=== PATIENT | female | born 1940 | race Caucasian/White ===

== ENCOUNTER → 2016-09-30 | Outpatient (CLI) | payer MEDICARE ==
--- NOTE | 2016-09-30 14:02 | BD ---
EXAMINATION TYPE: MG DEXA axial skeleton. DATE OF EXAM: 09/30/2016 12:57 PM COMPARISON: Prior DEXA bone scan May 24, 2014 CLINICAL HISTORY: Hyperparathyroidism. Height: 62 Weight: 130.7 FRAX RISK QUESTIONS: Alcohol (3 or more units per day): NO Family History (Parent hip fracture): NO Glucocorticoids (More than 3mos): YES prednisone, TAKING FOR 10 YEARS History of Fracture in Adulthood: NO Secondary Osteoporosis: 1. Type 1 Diabetes: NO 2. Hyperthyroidism: NO 3. Menopause before 45: NO 4. Malnutrition: NO 5. Chronic liver disease: NO Rheumatoid Arthritis: NO Current Tobacco Use: NO RISK FACTORS HISTORY OF: Hip Fracture (Right/Left): NO Spine Fracture: NO History of Wrist Fracture: NO Surgery to Spine/Hip(right/left)/Wrist (right/left): NO Family History of Osteoporosis: NO Active: YES Diet low in dairy products/other sources of calcium: NO Postmenopausal woman: AGE 52 Lost more than 2 inches in height since high school: NO Frequent falls: NO Hyperparathyroidism: YES Adrenal Insufficiency: NO MEDICATIONS: Prednisone or other steroids: YES FOR TEN YEARS How Long: PT HAD KIDNEY TRANSPLANT Additional Medications: CALCEDRILL, BLOOD PRESSURE MED Additional History: EXAM MEASUREMENTS: Bone mineral densitometry was performed using the [employer] System. Bone mineral density as measured about the Lumbar spine is: ----- L1-L4(G/cm2): 1.042 T Score Values are as follows: ----- L2: -2.4 ----- L3: -1.0 ----- L4: 1.4 ----- L1-L4: -1.2 Bone mineral density has: INCREASED 7.2 % since study of: 05.24.2014 Bone mineral density about the R hip (g/cm2): 0.700 Bone mineral density about the L hip (g/cm2): 0.767 T Score values are as follows: -----R Neck: -2.4 -----L Neck: -2.0 -----R Intertrochanter: -3.0 -----L Intertrochanter: -2.5 Bone mineral density has: INCREASED 1.4 % since study of: 05.24.2014 IMPRESSION: Osteoporosis (T Score less than -2.5) as noted by T Score values at the right hip remains present o [facility] bone density is improved from prior. There remains increased fracture risk and therapy is usually indicated based on age if it has not been started. Re-Screen 1-2 years. NOTE: T-SCORE=SD OF THE YOUNG ADULT MEAN.
--- NOTE | 2016-10-02 10:14 | MM ---
Reason for exam: screening (asymptomatic). Last mammogram was performed 1 year and 10 months ago. History: Patient is postmenopausal and has history of breast cancer at age 53. Family history of premenopausal breast cancer in aunt at age 40. Lumpectomy of the left breast, 1993. Excisional biopsy of the left breast. Physical Findings: A clinical breast exam by your physician is recommended on an annual basis and results should be correlated with mammographic findings. MG 3D Screening Mammo W/Cad Bilateral CC and MLO view(s) were taken. Prior study comparison: December 11, 2014, bilateral MG diagnostic mammo w CAD CRISTY. May 24, 2014, bilateral MG work up mamm w CAD BILAT. The breast tissue is heterogeneously dense. This may lower the sensitivity of mammography. No significant changes when compared with prior studies. ASSESSMENT: Benign, BI-RAD 2 RECOMMENDATION: Routine screening mammogram of both breasts.
== END | disposition home or self-care (01) ==
LOC: RADBDWWP 12:20
PROVIDERS: ATTEND Internal Medicine Geriatric Medicine
DX: Z12.31 Encounter for screening mammogram for malignant neoplasm of breast (principal); E21.3 Hyperparathyroidism, unspecified; M81.0 Age-related osteoporosis without current pathological fracture
CPT/HCPCS: 77080; 77063; G0202

== ENCOUNTER → 2016-12-02 | Outpatient (CLI) | payer MEDICARE ==
[2016-12-02 09:02] LABS: Basophils # (A) 0.1 k/uL (0-0.2); Basophils % (A) 1 %; CH 29.5; CHCM 31.6; Eosinophils # (A) 0.2 k/uL (0-0.7); Eosinophils % (A) 2 %; HCT 37.2 % (34.0-46.0); HDW 2.36; HGB 11.6 gm/dL (11.4-16.0); Luc # (Auto) 0.27; Luc % (Auto) 3; Lymphocytes # (A) 0.5 k/uL (1.0-4.8); Lymphocytes % (A) 5 %; MCH 29.3 pg (25.0-35.0); MCHC 31.2 g/dL (31.0-37.0); MCV 93.7 fL (80.0-100.0); Mean Platelet Volume 9.4; Monocytes # (A) 1.1 k/uL (0-1.0); Monocytes % (A) 12 %; Neutrophils # (A) 6.9 k/uL (1.3-7.7); Neutrophils % (A) 77 %; RBC 3.96 m/uL (3.80-5.40); RDW 14.6 % (11.5-15.5); WBC (Perox) 9.95
[2016-12-02 09:24] LABS: Calcium 10.4 mg/dL (8.4-10.2); Potassium 4.1 mmol/L (3.5-5.1); Total Bilirubin 1.5 mg/dL (0.2-1.3); Total Protein 7.1 g/dL (6.3-8.2)
[2016-12-02 12:06] LABS: Hemoglobin A1C 5.6 % (4.2-6.1)
== END | disposition home or self-care (01) ==
LOC: LABWHC1 08:11
PROVIDERS: ATTEND Internal Medicine Geriatric Medicine
DX: N19 Unspecified kidney failure (principal); J34.9 Unspecified disorder of nose and nasal sinuses; E78.00 Pure hypercholesterolemia, unspecified; R73.9 Hyperglycemia, unspecified; E21.3 Hyperparathyroidism, unspecified; E55.9 Vitamin D deficiency, unspecified
CPT/HCPCS: 36415; 80053; 80061; 82306; 83036; 84439; 84443; 85025

== ENCOUNTER → 2017-02-03 | Outpatient (CLI) | payer MEDICARE | END | disposition home or self-care (01) | LOC: LABWHC1 07:40 | PROVIDERS: ATTEND Internal Medicine Nephrology | DX: Z51.81 Encounter for therapeutic drug level monitoring (principal); Z79.899 Other long term (current) drug therapy | CPT/HCPCS: 36415; 82247 ==

== ENCOUNTER → 2017-06-24 | Outpatient (CLI) | payer MEDICARE ==
--- NOTE | 2017-06-24 16:05 | MR ---
EXAMINATION TYPE: MR MRCP DATE OF EXAM: 06/24/2017 COMPARISON: MRI abdomen dated 04/15/2016 HISTORY: cyst on pancreas TECHNIQUE: Multiplanar, multisequence images of the abdomen were acquired per MRCP protocol FINDINGS: The common bile duct is again dilated measuring up to 1.1 cm proximally and 8 mm distally with no oth er areas of focal stricturing. No gallstones are seen within the gallbladder. The main pancreatic sondra t is nondilated. There is redemonstration of a 2.1 x 2.3 cm T2 hyperintense and T1 hypointense cystic lesion of the pancreatic body appearing to communicate with the main pancreatic duct, which is nondi lated. Additionally within the pancreatic body there is a second 6 mm T2 hyperintense and T1 hypointe nse pancreatic lesion. Within the distal pancreatic body there is a third 6 mm T2 hyperintense and T1 hypointense pancreatic lesion. These lesions may also communicate with the pancreatic duct. Last wit hin the uncinate process there is a similar lesion measuring 6 mm. There is mild signal dropout on out of phase imaging within the hepatic parenchyma suggestive of mild hepatic steatosis. Subcentimeter scattered T2 hyperintense and T1 hypointense probable 2 to 3 mm cys ts are present with a single larger similar lesion in the hepatic dome in segment 8 measuring 5 mm. O therwise the unenhanced liver is unremarkable with no evidence of intrahepatic biliary ductal dilatat ion. Small pericardial effusion is partially visualized. The [place] kidneys are severely atrophic with numerous bilateral T2 hyperintense and T1 hypointense p robable renal cyst. Within the right superior pole and mid to lower pole foci of T1 hyperintensity ar e seen that may represent proteinaceous and/or hemorrhagic portions of renal lesions. Right lower jerad drant transplant kidney is partially visualized with lower pole T2 hyperintense and T1 hypointense 7 mm lesion that is too small to accurately characterize. Focal contour with small focus of signal drop out centrally representing internal fat component. This could represent a focus of renal sinus fat in the lobulated kidney, however further evaluation is recommended. Right lower pole renal sinus cyst i s also seen within the transplanted kidney. Other smaller T2 hyperintense and T1 hypointense lesions are also seen at most likely represent subcentimeter cysts but are too small to accurately characteri ze. There is a small hiatal hernia present. Spleen is of normal morphology. Degenerative changes are seen of the osseous structures with a levoscoliotic curvature of the lumbar spine. Right basilar pleural- parenchymal scarring is noted. Abdominal aorta appears of normal course and caliber. IMPRESSION: 1. Similar size and morphology of the approximately 2.1 x 2.3 cm mid pancreatic cystic mass. Addition al subcentimeter (at least 3) cystic lesions are seen that appear to be in continuity with the nondil ated main pancreatic duct. 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 Annual follow-up is recommende d for lesions of the size. It is also recommended follow-up the performed with MRCP with and without contrast to evaluate for any abnormal enhancement. 2. Abnormal lobulated posterior contour of the transplant kidney, incompletely characterized given th e lack of contrast. Follow-up ultrasound is recommended to ensure no underlying mass if this patient cannot receive contrast. 3. Atrophic [place] renal kidneys with numerous cystic renal lesions, 2 of which have T1 hyperintensit y and may represent internal hemorrhage and/or proteinaceous debris. 4. Stable dilation of the common bile duct in comparison to the prior exam without MR evidence of acu te cholecystitis. 5. Suggestion of mild hepatic steatosis. 6. Numerous cystic hepatic lesions that are too small to accurately characterize but statistically re present renal cysts. 7. Small pericardial effusion.
== END | disposition home or self-care (01) ==
LOC: RADMRIMAIN 11:56
PROVIDERS: ATTEND Surgery
DX: K86.2 Cyst of pancreas (principal); N28.1 Cyst of kidney, acquired; K83.8 Other specified diseases of biliary tract; K76.0 Fatty (change of) liver, not elsewhere classified; I31.3 Pericardial effusion (noninflammatory); Z94.0 Kidney transplant status
CPT/HCPCS: 74181

== ENCOUNTER → 2017-10-20 | Outpatient (CLI) | payer MEDICARE ==
[2017-10-20 07:57] LABS: Basophils # (A) 0.1 k/uL (0-0.2); Basophils % (A) 1 %; Eosinophils # (A) 0.2 k/uL (0-0.7); Eosinophils % (A) 2 %; HCT 37.5 % (34.0-46.0); HGB 11.8 gm/dL (11.4-16.0); Lymphocytes # (A) 1.5 k/uL (1.0-4.8); Lymphocytes % (A) 17 %; MCH 29.1 pg (25.0-35.0); MCHC 31.6 g/dL (31.0-37.0); MCV 92.1 fL (80.0-100.0); Monocytes # (A) 0.9 k/uL (0-1.0); Monocytes % (A) 11 %; Neutrophils # (A) 5.5 k/uL (1.3-7.7); Neutrophils % (A) 66 %; Platelet Count 370 k/uL (150-450); RBC 4.07 m/uL (3.80-5.40); RDW 13.8 % (11.5-15.5); WBC 8.3 k/uL (3.8-10.6)
[2017-10-20 08:28] LABS: Albumin 4.4 g/dL (3.5-5.0); Calcium 10.6 mg/dL (8.4-10.2); Potassium 3.2 mmol/L (3.5-5.1); Total Bilirubin 1.4 mg/dL (0.2-1.3); Total Protein 6.7 g/dL (6.3-8.2)
[2017-10-20 08:38] LABS: T4, Free (Free Thyroxine) 1.22 ng/dL (0.78-2.19)
[2017-10-20 16:45] LABS: Hemoglobin A1C 5.6 % (4.0-6.0)
== END | disposition home or self-care (01) ==
LOC: LABWHC1 07:25
PROVIDERS: ATTEND Internal Medicine Geriatric Medicine
DX: I10 Essential (primary) hypertension (principal); R73.9 Hyperglycemia, unspecified; E78.00 Pure hypercholesterolemia, unspecified; E21.3 Hyperparathyroidism, unspecified
CPT/HCPCS: 36415; 80053; 80061; 83036; 84439; 84443; 85025

== ENCOUNTER 2018-05-07 11:45 | Day surgery (SDC) | payer MEDICARE ==
[2018-05-05 15:27] VITALS: BMI 21.6
[~2018-05-07 11:45] MED LIST: LACTATED RINGERS 1,000 ML IV SCH; LIDOCAINE 1% 20 ML VIAL (10MG/ML) FOR IV START INTRADERMA PRN
[2018-05-07 12:56] VITALS: RESP 16; TEMP 98.8
[2018-05-07] MEDS ORDERED: LIDOCAINE 1% INJ 10MG/ML (20 ML MDV) ONE (14:17)
[2018-05-07] MEDS ORDERED: PROPOFOL 10 MG/ML 20 ML VIAL IV ONE (14:17)
[2018-05-07 14:36] VITALS: BP 113/73; PULSE 64
--- NOTE | 2018-05-07 14:48 | P.PCN ---
Date of Procedure: 05/07/18 Procedure(s) Performed: BRIEF HISTORY: Patient is a 77-year-old, pleasant, white female, scheduled for an upper endoscopy as a part of evaluation of intermittent dysphagia to solids for the last 6 months duration. She has these episodes once or twice a month often with solids and elevated liquids.. PROCEDURE PERFORMED: Esophagogastroduodenoscopy with biopsy and balloon dilation. PREOPERATIVE DIAGNOSIS: Intermittent dysphagia to solids. IV sedation per anesthesia. PROCEDURE: After informed consent was obtained, the patient was brought into the endoscopy unit. IV sedation was administered by Anesthesia under continuous monitoring. Initially the Olympus GIF-140 video endoscope was inserted into the mouth. Esophagus intubated without any difficulty. It was gradually advanced into the stomach and duodenum and carefully examined. The bulb and the second part of the duodenum appeared normal. The scope at this time was withdrawn to the stomach, adequately insufflated with air, and upon careful examination, mucosa of the antrum had mild gastritis and biopsies were done from this area. The, body, cardia and the fundus appeared normal. The scope was then withdrawn into the esophagus. Small sliding Hiatal hernia noted. The GE junction was located at 37 cm from the incisors. There was an early distal esophageal stricture identified which was dilated using 12-15 mm TTS balloon for total of 90 seconds. There were linear erosions in the lesser esophagus consistent with LA grade B reflux esophagitis. Rest of the esophagus appeared normal and the patient tolerated the procedure well. Impression: 1. Early distal esophageal stricture status post balloon dilation using 12-15 mm TTS balloon as described above 2. Small hiatal hernia 3. Linear erosions in the distal esophagus consistent with LA grade B reflux esophagitis 2. Mild antral gastritis RECOMMENDATIONS: The findings of this examination were discussed with the patient well as her family. She was advised to follow with the biopsy results.. She will remain on a clear liquid diet for lunch today. She was advised to start on Zantac 150 mild grams twice daily and follow anti-reflux measures. If she has persistent symptoms she was advised to follow up in office in 3-6 weeks.
== END 2018-05-07 15:14 | disposition home or self-care (01) ==
LOC: ORWHC2ENDO 11:45
PROVIDERS: ATTEND Internal Medicine Gastroenterology
DX: K22.2 Esophageal obstruction (principal); K29.50 Unspecified chronic gastritis without bleeding; K21.0 Gastro-esophageal reflux disease with esophagitis; K44.9 Diaphragmatic hernia without obstruction or gangrene; E78.5 Hyperlipidemia, unspecified; I10 Essential (primary) hypertension; Z94.0 Kidney transplant status; N28.9 Disorder of kidney and ureter, unspecified; Z79.82 Long term (current) use of aspirin; Z79.891 Long term (current) use of opiate analgesic; Z79.52 Long term (current) use of systemic steroids; Z79.899 Other long term (current) drug therapy
CPT/HCPCS: 43239; 43249; J2001; J2704; C1726; 88305

== ENCOUNTER → 2018-05-12 | Outpatient (CLI) | payer MEDICARE ==
[2018-05-12 08:15] LABS: Basophils % (A) 1 %; Eosinophils # (A) 0.2 k/uL (0-0.7); Eosinophils % (A) 3 %; HCT 35.1 % (34.0-46.0); HGB 11.5 gm/dL (11.4-16.0); Lymphocytes # (A) 1.5 k/uL (1.0-4.8); Lymphocytes % (A) 18 %; MCH 29.5 pg (25.0-35.0); MCHC 32.7 g/dL (31.0-37.0); MCV 90.3 fL (80.0-100.0); Mean Platelet Volume 8.8; Monocytes # (A) 0.9 k/uL (0-1.0); Monocytes % (A) 10 %; Neutrophils # (A) 5.5 k/uL (1.3-7.7); Neutrophils % (A) 65 %; Platelet Count 338 k/uL (150-450); RBC 3.89 m/uL (3.80-5.40); RDW 14.3 % (11.5-15.5); WBC 8.4 k/uL (3.8-10.6)
[2018-05-12 10:12] LABS: Calcium 10.1 mg/dL (8.4-10.2); Potassium 3.6 mmol/L (3.5-5.1); Total Protein 6.6 g/dL (6.3-8.2)
[2018-05-12 10:30] LABS: T4, Free (Free Thyroxine) 1.17 ng/dL (0.78-2.19)
[2018-05-12 17:33] LABS: Iron Saturation 23.62 (12.00-45.00)
[2018-05-12 17:45] LABS: Folate, Serum 12.5 ng/mL
[2018-05-12 18:21] LABS: Hemoglobin A1C 5.5 % (4.0-6.0)
== END | disposition home or self-care (01) ==
LOC: LABWHC1 07:32
PROVIDERS: ATTEND Internal Medicine Geriatric Medicine
DX: D50.9 Iron deficiency anemia, unspecified (principal); I10 Essential (primary) hypertension; R73.9 Hyperglycemia, unspecified; E78.00 Pure hypercholesterolemia, unspecified; E21.3 Hyperparathyroidism, unspecified
CPT/HCPCS: 36415; 80053; 80061; 82607; 82728; 82746; 83036; 83540; 83550; 84439; 84443; 85025

== ENCOUNTER → 2018-07-12 | Outpatient (CLI) | payer MEDICARE ==
--- NOTE | 2018-07-12 19:32 | ECHOF ---
Referral Reason:I34.9 Nonrheumatic mitral valve disorder MEASUREMENTS -------- HEIGHT: 154.9 cm WEIGHT: 54.9 kg BP: RVIDd: 3.3 cm (< 3.3) IVSd: 1.1 cm (0.6 - 1.1) LVIDd: 3.8 cm (3.9 - 5.3) LVPWd: 1.1 cm (0.6 - 1.1) IVSs: 1.5 cm LVIDs: 2.2 cm LVPWs: 1.4 cm LAESV Index (A-L): 28.60 ml/m Ao Diam: 2.5 cm (2.0 - 3.7) AV Cusp: 1.6 cm (1.5 - 2.6) LA Diam: 3.3 cm (2.7 - 3.8) MV EXCURSION: 15.184 mm (> 18.000) MV EF SLOPE: 71 mm/s (70 - 150) EPSS: 0.3 cm MV E Gian: 1.04 m/s MV DecT: 277 ms MV A Gian: 0.89 m/s MV E/A Ratio: 1.17 FINDINGS -------- Sinus rhythm. This was a technically good study. The left ventricular size is normal. There is borderline concentric left ventricular hypertrophy. Overall left ventricular systolic function is normal with, an EF between 55 - 60 %. The right ventricle is mildly enlarged. LA is midly dilated 29-33ml/m2. The right atrium is normal in size. Aortic valve is trileaflet and is mildly thickened. There is no evidence of aortic regurgitation. There is no evidence of aortic stenosis. Mild mitral annular calcification present. There is trace to mild mitral regurgitation. Trace tricuspid regurgitation present. Right ventricular systolic pressure is normal at < 35 mmHg. There is no evidence of pulmonary hypertension. Trace/mild (physiologic) pulmonic regurgitation. The aortic root size is normal. Normal inferior vena cava with normal inspiratory collapse consistent with estimated right atrial pre ssure of 5 mmHg. There is no pericardial effusion. CONCLUSIONS -------- 1. Sinus rhythm. 2. This was a technically good study. 3. The left ventricular size is normal. 4. There is borderline concentric left ventricular hypertrophy. 5. Overall left ventricular systolic function is normal with, an EF between 55 - 60 %. 6. The right ventricle is mildly enlarged. 7. LA is midly dilated 29-33ml/m2. 8. Aortic valve is trileaflet and is mildly thickened. 9. Mild mitral annular calcification present. 10. There is trace to mild mitral regurgitation. 11. Trace tricuspid regurgitation present. 12. Right ventricular systolic pressure is normal at < 35 mmHg. 13. There is no evidence of pulmonary hypertension. 14. Trace/mild (physiologic) pulmonic regurgitation. 15. The aortic root size is normal. 16. There is no pericardial effusion. [employer]OR CLOSER MECH[employer]IC: Reji Etienne RDCS
== END | disposition home or self-care (01) ==
LOC: RADECHMAIN 12:57
PROVIDERS: ATTEND Internal Medicine Geriatric Medicine
DX: I08.1 Rheumatic disorders of both mitral and tricuspid valves (principal)
CPT/HCPCS: 93306

== ENCOUNTER 2018-10-27 10:36 | Day surgery (SDC) | payer MEDICARE ==
[2018-10-22 16:20] VITALS: BMI 21.1
[2018-10-27 11:08] VITALS: TEMP 98.1
[2018-10-27] MEDS ORDERED: PROPOFOL 10 MG/ML 20 ML VIAL IV ONE (11:47)
[2018-10-27] MEDS ORDERED: GLYCOPYRROLATE 0.2 MG/ML 2 ML VIAL ONE (11:47)
[2018-10-27] MEDS ORDERED: LIDOCAINE 1% INJ 10MG/ML (20 ML MDV) ONE (11:47)
--- NOTE | 2018-10-27 12:00 | P.PCN ---
Date of Procedure: 10/27/18 Procedure(s) Performed: BRIEF HISTORY: Patient is a 78-year-old, pleasant, white female, scheduled for an upper endoscopy as a part of evaluation of progressive dysphagia to solids for the last 3 months duration. She did have an upper endoscopy with balloon dilation of the distal esophageal stricture now. 2018.. PROCEDURE PERFORMED: Esophagogastroduodenoscopy with balloon dilation. PREOPERATIVE DIAGNOSIS: Progressive dysphagia to solids. IV sedation per anesthesia. PROCEDURE: After informed consent was obtained, the patient was brought into the endoscopy unit. IV sedation was administered by Anesthesia under continuous monitoring. Initially the Olympus GIF-140 video endoscope was inserted into the mouth. Esophagus intubated without any difficulty. It was gradually advanced into the stomach and duodenum and carefully examined. The bulb and the second part of the duodenum appeared normal. The scope at this time was withdrawn to the stomach, adequately insufflated with air, and upon careful examination, mucosa of the antrum, body, cardia and the fundus appeared normal. The scope was then withdrawn into the esophagus. The GE junction was located at 39 cm from the incisors. Small polyp identified which was biopsied. There was early distal esophageal stricture that was dilated using 12-15 mm TTS balloon with sequential fashion for total of 90 seconds. There are linear erosions and one superficial ulceration in the distal esophagus consistent with LA grade C reflux esophagitis. The rest of the esophagus appeared normal and the patient tolerated the procedure well. IMPRESSION: 1. Early distal esophageal stricture status post balloon dilation using 12-15 mm TTS balloon as described above. 2. Linear erosions in the distal esophagus consistent with LA grade C reflux esophagitis. 3, Small GE junction polyp status post biopsy RECOMMENDATIONS: The findings of this examination were discussed with the patient as well as a family. She was advised to start on Prilosec 20 mg daily to take half hour before breakfast and follow antireflux measures. She'll be on a clear liquid diet today. She will be seen in the office in 3-4 months..
[2018-10-27 12:06] VITALS: RESP 16
[2018-10-27 12:51] VITALS: BP 136/80; PULSE 65
== END 2018-10-27 13:08 | disposition home or self-care (01) ==
LOC: ORWHC2ENDO 10:36
PROVIDERS: ATTEND Internal Medicine Gastroenterology
DX: K22.2 Esophageal obstruction (principal); K22.10 Ulcer of esophagus without bleeding; I10 Essential (primary) hypertension; E78.5 Hyperlipidemia, unspecified; Z94.0 Kidney transplant status; Z79.899 Other long term (current) drug therapy; Z79.82 Long term (current) use of aspirin; Z79.52 Long term (current) use of systemic steroids; Z85.3 Personal history of malignant neoplasm of breast
CPT/HCPCS: 88305; 88312; 43239; 43249; J2001; J2704; C1726

== ENCOUNTER → 2018-12-14 | Outpatient (CLI) | payer MEDICARE | LOC: LABWHC1 07:46 | PROVIDERS: ATTEND Internal Medicine Nephrology | DX: I15.9 Secondary hypertension, unspecified (principal) | CPT/HCPCS: 36415; 82088; 84244 ==

== ENCOUNTER → 2019-01-25 | Outpatient (CLI) | payer MEDICARE ==
[~2019-01-25] MED LIST changes: +DENOSUMAB 60 MG/ML 1 ML SYRINGE SQ ONE; -LACTATED RINGERS 1,000 ML IV SCH; -LIDOCAINE 1% 20 ML VIAL (10MG/ML) FOR IV START INTRADERMA PRN
[2019-01-25 12:32] VITALS: BP 121/67; PULSE 73; RESP 16; TEMP 97.9
== END ==
LOC: PROCWHC3 12:19
PROVIDERS: ATTEND Internal Medicine Geriatric Medicine
DX: M81.0 Age-related osteoporosis without current pathological fracture (principal)
CPT/HCPCS: 96372; J0897

== ENCOUNTER → 2019-02-07 | Outpatient (CLI) | payer MEDICARE ==
--- NOTE | 2019-02-07 09:06 | BD ---
EXAMINATION TYPE: Axial Bone Density DATE OF EXAM: 02/07/2019 COMPARISON: NONE CLINICAL HISTORY: Postmenopausal female Height: 5 FT 2 IN Weight: 115 FRAX RISK QUESTIONS: Glucocorticoids (More than 3mos): YES (Ex: prednisone, prednisolone, methylprednisolone, dexamethasone, and hydrocortisone). RISK FACTORS HISTORY OF: Active: NO Postmenopausal woman: EARLY 50'S MEDICATIONS: Prednisone or other steroids: YES How Lon YEARS Additional Medications: PREDNISONE, ATTENOLOL, BLOOD PRESSURE MEDS, PROCARDIA, CYCLOSPORINE, MYPHORTE C,CLONIDINE, LISINOPRIL,OMEPRAZOLE Additional History: KIDNEY TRANSPLANT PT STATES SHE HAS HAD PROLIA SHOT JAN 25 2019 EXAM MEASUREMENTS: Bone mineral densitometry was performed using the [employer] System. Bone mineral density as measured about the Lumbar spine is: ----- L1-L4(G/cm2): 1.001 T Score Values are as follows: ----- L2: -3.3 ----- L3: -1.3 ----- L4: 1.4 ----- L1-L4: -1.5 Bone mineral density has: DECREASED -3.9 SINCE STUDY OF 2016 Bone mineral density about the R hip (g/cm2): 0.650 Bone mineral density about the L hip (g/cm2): 0.473 T Score values are as follows: -----R Neck: -2.8 -----L Neck: -4.1 -----R Total: -3.4 -----L Total: -3.8 Bone mineral density has: DECREASED -21.7 SINCE STUDY 2016 IMPRESSION: Osteoporosis (T Score less than -2.5). There is increased fracture risk and therapy is usually indicated based on age. Re-Screen 1-2 years. NOTE: T-SCORE=SD OF THE YOUNG ADULT MEAN.
--- NOTE | 2019-02-09 09:24 | MM ---
Reason for exam: screening (asymptomatic). Last mammogram was performed 2 years and 4 months ago. History: Patient is postmenopausal and has history of breast cancer at age 53. Family history of premenopausal breast cancer in aunt at age 40. Lumpectomy of the left breast, 1993. Excisional biopsy of the left breast. Physical Findings: A clinical breast exam by your physician is recommended on an annual basis and results should be correlated with mammographic findings. MG Screening Mammo w CAD Bilateral CC and MLO view(s) were taken. Prior study comparison: September 30, 2016, bilateral MG 3d screening mammo w/cad. December 11, 2014, bilateral MG diagnostic mammo w CAD CRISTY. The breast tissue is heterogeneously dense. This may lower the sensitivity of mammography. Finding #1: There is a 10 mm equal density (isodense) mass in the inner quadrant, central position of the right breast. Finding #2: There are typically benign calcifications in both breasts. ASSESSMENT: Incomplete: need additional imaging evaluation, BI-RAD 0 RECOMMENDATION: Special view mammogram of the right breast. If lesion persists on supplemental views, image directed ultrasound is recommended. [facility] will attempt to contact patient to return for supplemental views and ultrasound if indicated.
== END | disposition home or self-care (01) ==
LOC: RADMAMWWP 06:57
PROVIDERS: ATTEND Internal Medicine Geriatric Medicine
DX: Z12.31 Encounter for screening mammogram for malignant neoplasm of breast (principal); M81.0 Age-related osteoporosis without current pathological fracture
CPT/HCPCS: 77067; 77080

== ENCOUNTER → 2019-02-10 | Outpatient (CLI) | payer MEDICARE ==
--- NOTE | 2019-02-10 09:48 | MM ---
Reason for exam: additional evaluation requested from abnormal screening. Last mammogram was performed less than 1 month ago. History: Patient is postmenopausal and has history of breast cancer at age 53. Family history of premenopausal breast cancer in aunt at age 40. Lumpectomy of the left breast, 1993. Excisional biopsy of the left breast. Physical Findings: Nurse did not find any significant physical abnormalities on exam. MG 3D Work Up W/Cad RT Spot compression CC, spot compression MLO, and LM view(s) were taken of the right breast. Prior study comparison: February 07, 2019, bilateral MG screening mammo w CAD. September 30, 2016, bilateral MG 3d screening mammo w/cad. The breast tissue is heterogeneously dense. This may lower the sensitivity of mammography. Benign appearing calcifictions in the right breast. The previously seen abnormality resolves on additional views and appears as fibroglandular tissue compatible with summation. No suspicious abnormality. These results were verbally communicated with the patient and result sheet given to the patient on 02/10/19. ASSESSMENT: Benign, BI-RAD 2 RECOMMENDATION: Return to routine screening mammogram schedule for both breasts.
== END ==
LOC: RADMAMWWP 08:54
PROVIDERS: ATTEND Internal Medicine Geriatric Medicine
DX: R92.8 Other abnormal and inconclusive findings on diagnostic imaging of breast (principal)
CPT/HCPCS: 77065; G0279; 77061

== ENCOUNTER → 2019-07-29 | Outpatient (CLI) | payer MEDICARE ==
[2019-07-29 09:13] VITALS: BP 126/60; PULSE 68; RESP 16
== END | disposition home or self-care (01) ==
LOC: PROCWHC3 08:47
PROVIDERS: ATTEND Internal Medicine Geriatric Medicine
DX: M81.0 Age-related osteoporosis without current pathological fracture (principal)
CPT/HCPCS: 96372; J0897

== ENCOUNTER → 2020-01-31 | Outpatient (CLI) | payer MEDICARE ==
[2020-01-31 10:20] LABS: Basophils % (A) 1 %; Eosinophils # (A) 0.2 k/uL (0-0.7); Eosinophils % (A) 2 %; HGB 11.5 gm/dL (11.4-16.0); Hypochromasia Slight; Lymphocytes # (A) 1.2 k/uL (1.0-4.8); Lymphocytes % (A) 13 %; MCH 29.7 pg (25.0-35.0); MCHC 31.1 g/dL (31.0-37.0); MCV 95.4 fL (80.0-100.0); Mean Platelet Volume 9.9; Monocytes # (A) 1.1 k/uL (0-1.0); Monocytes % (A) 12 %; Neutrophils # (A) 6.3 k/uL (1.3-7.7); Neutrophils % (A) 69 %; Platelet Count 337 k/uL (150-450); RBC 3.88 m/uL (3.80-5.40); RDW 14.8 % (11.5-15.5); WBC 9.1 k/uL (3.8-10.6)
[2020-01-31 16:04] LABS: Ferritin 149.2 ng/mL (10.0-291.0)
[2020-01-31 16:07] LABS: % Iron Saturation 13.84 (12.00-45.00); ALT 13 U/L (8-44); AST 14 U/L (13-35); African American GFR (CKD) 70.5 (60.0-200.0); Albumin/Globulin Ratio 2.37 (1.60-3.17); Alkaline Phosphatase 68 U/L (41-126); BUN/Creat Ratio 17.78 Ratio (12.00-20.00); Calcium 9.4 mg/dL (8.7-10.3); Carbon Dioxide 24.1 mmol/L (21.6-31.8); Chloride 108 mmol/L (96-109); Cholesterol 168 mg/dL (0-200); GGT <15 U/L (0-38); Globulin 1.9 g/dL (1.6-3.3); Glucose 94 mg/dL (70-110); Iron 49 ug/dL (50-170); Non-African American GFR(CKD) 60.8 (60.0-200.0); Potassium 4.1 mmol/L (3.5-5.5); Sodium 145 mmol/L (135-145); Total Iron Binding Capacity 354 ug/dL (228-460); Total Protein 6.4 g/dL (6.2-8.2)
[2020-01-31 16:51] LABS: Hemoglobin A1C 5.5 % (4.0-6.0)
== END | disposition home or self-care (01) ==
LOC: LABWHC1 08:38
PROVIDERS: ATTEND Internal Medicine Geriatric Medicine
DX: D50.9 Iron deficiency anemia, unspecified (principal); E78.2 Mixed hyperlipidemia; R73.9 Hyperglycemia, unspecified; E21.3 Hyperparathyroidism, unspecified
CPT/HCPCS: 36415; 80053; 80061; 80158; 82728; 82977; 83036; 83540; 83550; 84439; 84443; 85025

== ENCOUNTER → 2020-03-27 | Outpatient (CLI) | payer MEDICARE ==
[2020-03-27 09:32] LABS: Protein/Creatinine Ratio,Urine 0.466
[2020-03-27 09:39] LABS: Appearance,Urine Cloudy (Clear); Bacteria,Urine Many /hpf; Bilirubin,Urine Negative (Negative); Blood,Urine Negative (Negative); Color,Urine Light Yellow; Glucose,Urine (UA) Negative (Negative); Ketones,Urine Negative (Negative); Leukocyte Esterase,Urine Large (Negative); Nitrite,Urine Negative (Negative); Protein,Urine Trace (Negative); RBC,Urine 1 /hpf (0-5); Specific Gravity,Urine 1.011 (1.001-1.035); Squamous Epithelial Cell,Urine 15 /hpf (0-4); Urobilinogen,Urine <2.0 mg/dL (<2.0); WBC,Urine 30 /hpf (0-5)
[2020-03-27 16:52] LABS: African American GFR (CKD) 70.5 (60.0-200.0); Non-African American GFR(CKD) 60.8 (60.0-200.0)
== END | disposition home or self-care (01) ==
LOC: LABWHC1 08:02
PROVIDERS: ATTEND Nurse Practitioner
DX: Z13.89 Encounter for screening for other disorder (principal); N39.0 Urinary tract infection, site not specified; Z94.0 Kidney transplant status
CPT/HCPCS: 36415; 81001; 82565; 82570; 84156; 87086

== ENCOUNTER → 2020-03-30 | Outpatient (CLI) | payer MEDICARE ==
--- NOTE | 2020-04-02 09:36 | MM ---
Reason for exam: screening (asymptomatic). Last mammogram was performed 1 year and 2 months ago. History: Patient is postmenopausal and has history of breast cancer at age 53. Family history of premenopausal breast cancer in aunt at age 40. Lumpectomy of the left breast, 1993. Excisional biopsy of the left breast. Physical Findings: A clinical breast exam by your physician is recommended on an annual basis and results should be correlated with mammographic findings. MG 3D Screening Mammo W/Cad Bilateral CC and MLO view(s) were taken. XCCL view(s) were taken of the right breast. Prior study comparison: February 10, 2019, right breast MG 3d work up w/cad RT. February 07, 2019, bilateral MG screening mammo w CAD. The breast tissue is heterogeneously dense. This may lower the sensitivity of mammography. Finding: There is an intermediate concern, suspicious 5 mm high density, circumscribed mass located 5 cm from the nipple in the right breast, best seen on CC view. ASSESSMENT: Incomplete: need additional imaging evaluation, BI-RAD 0 RECOMMENDATION: Ultrasound of the right breast. [facility] will attempt to contact patient to return for ultrasound.
== END | disposition home or self-care (01) ==
LOC: RADMAMWWP 12:23
PROVIDERS: ATTEND Internal Medicine Geriatric Medicine
DX: Z12.31 Encounter for screening mammogram for malignant neoplasm of breast (principal)
CPT/HCPCS: 77063; 77067

== ENCOUNTER → 2020-04-19 | Outpatient (CLI) | payer MEDICARE ==
--- NOTE | 2020-04-20 10:16 | USB ---
Reason for exam: clinical finding. History: Patient is postmenopausal and has history of breast cancer at age 53. Family history of premenopausal breast cancer in aunt at age 40. Lumpectomy of the left breast, 1993. Excisional biopsy of the left breast. Indicated problem(s): palpable abnormality in the right breast. Physical Findings: Nurse Summary: 1cm 1 o'clock movable nodule (nurse dw). US Breast Workup RT Right complete breast ultrasound includes all four quadrants, the retroareolar region and axilla. Finding demonstrates a 0.7 x 0.5 x 0.6cm oval, cystic lesion at 5 o'clock and a 0.6 x 0.5 x 0.7cm oval, hypoechoic lesion at 4 o'clock for which a biopsy is recommended. These results were verbally communicated with the patient and result sheet given to the patient on 04/19/20. ASSESSMENT: Suspicious, BI-RAD 4 RECOMMENDATION: Ultrasound core biopsy of the right breast. Called Dr. Henao's office with mammographic findings and has scheduled an appointment for the patient for 04/20/20 at 4:[address] Pérez. Biopsy scheduled for 05/08/20 at 1:00. PRELIMINARY REPORT CALLED AND FAXED TO DR. PÉREZ ON 04/20/20.
== END | disposition home or self-care (01) ==
LOC: RADUSWWP 08:19
PROVIDERS: ATTEND Internal Medicine Geriatric Medicine
DX: R92.8 Other abnormal and inconclusive findings on diagnostic imaging of breast (principal)

== ENCOUNTER → 2020-04-20 | Outpatient (CLI) | payer MEDICARE ==
[2020-04-20 15:59] VITALS: BP 101/56; PULSE 81; RESP 22; TEMP 98.5
--- NOTE | 2020-04-20 16:11 | P.GSHP ---
History of Present Illness H&P Date: 04/20/20 Chief Complaint: abnormal ultrasound of the right breast Holly is a 79 year old female seen in consultation for Dr. Henao who had an ultrasound performed on . This revealed an area of concern in the right breast for which ultrasound-guided core biopsy was recommended. She a bilateral mammogram performed on concern suspicious 5 mm hypodensity lesion 5 cm from the nipple in the right breast. This that the ultrasound was performed an ultrasound guided core biopsy was recommended. The patient does not feel any lumps masses or nodules in her breast. She denies any nipple discharge or skin changes. She is not complaining of any pain in her breast. She has no history of any recent trauma or infection in the breast. Of importance is the fact that she undergone a left breast lumpectomy in the past for lobular carcinoma in situ. She did not receive any hormonal therapy. 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) tonsil Medical History: right shoulder pain, started yesterday 04-19-20 on steriods secondary to kidney transplant Social History: nicotine: none alcohol: none drugs: none - Constitutional Constitutional: Denies chills, Denies fever - EENT Eyes: denies blurred vision, denies pain Ears: bilateral: decreased hearing, deny: tinnitus Ears, nose, mouth and throat: Denies headache, Denies sore throat - Breasts Breasts: bilateral: as per HPI - Cardiovascular Cardiovascular: Reports high blood pressure, Denies chest pain, Denies shortness of breath - Respiratory Respiratory: Denies cough, Denies 7 - Gastrointestinal Gastrointestinal: Denies abdominal pain, Denies diarrhea, Denies nausea, Denies vomiting - Genitourinary (Female) Comment: FSGS Genitourinary: Denies dysuria, Denies hematuria - Menstruation Menstruation: Reports postmenopausal - Musculoskeletal Comment: arthritis, uses a walker - Integumentary Integumentary: Denies pruritus, Denies rash - Neurological Neurological: Denies numbness, Denies weakness - Psychiatric Psychiatric: Denies anxiety, Denies depression - Endocrine Endocrine: Denies fatigue, Denies weight change - Hematologic/Lymphatic Comment: none - Allergic/Immunologic Allergic/Immunologic: Reports as per HPI Past Medical History Past Medical History: Cancer, Hyperlipidemia, Hypertension, Renal Disease Additional Past Medical History / Comment(s): BILATERAL FSGS (FOCAL SEGMENTAL GLOMERULOSCLEROSIS), RIGHT KIDNEY TRANSPLANT (MAY 2007)., LOBULAR CARCINOMA INSITU WITH SURGERY., BACK PAIN- USES CANE., DYSPHAGIA. OSTEOPOROSIS. History of Any Multi-Drug Resistant Organisms: None Reported Past Surgical History: Breast Surgery, Orthopedic Surgery, Tonsillectomy, Tubal Ligation Additional Past Surgical History / Comment(s): LEFT KNEE SURGERY, RIGHT KIDNEY TRANSPLANT MAY 2007. EGD WITH DILATION Past Anesthesia/Blood Transfusion Reactions: Motion Sickness, Postoperative Nausea & Vomiting (PONV) Past Psychological History: No Psychological Hx Reported Past Alcohol Use History: None Reported Past Drug Use History: None Reported - Past Family History Mother Family Medical History: No Reported History Brother(s) Family Medical History: Cancer Additional Family Medical History / Comment(s): COLON CANCER Medications and Allergies Home Medications Medication Instructions Recorded Confirmed Type Aspirin 81 mg PO DAILY 12/13/14 07/29/19 History Atenolol 50 mg PO DAILY 12/13/14 07/29/19 History NIFEdipine [Nifedical Xl] 60 mg PO DAILY 12/13/14 07/29/19 History cloNIDine HCL [Clonidine HCl] 0.1 mg PO BID 12/13/14 07/29/19 History Atorvastatin [Lipitor] 20 mg PO HS 05/14/16 07/29/19 History Magnesium 500 mg PO DAILY 05/14/16 07/29/19 History predniSONE 5 mg PO DAILY 05/14/16 07/29/19 History Furosemide [Lasix] 20 mg PO DAILY 10/22/18 07/29/[address] [Myfortic] 720 mg PO BID 10/22/18 07/29/19 History Potassium 99 mg PO DAILY 10/22/18 07/29/19 History cycloSPORINE [cycloSPORINE (GEQ 50 mg PO BID 10/22/18 07/29/19 History for SandIMMUNE)] lisinopriL 60 mg PO HS 10/22/18 07/29/19 History Allergies Allergy/AdvReac Type Severity Reaction Status Date / Time No Known Allergies Allergy Verified 07/29/19 09:08 Surgical - Exam BMI 22.3 - General no distress - Eyes normal ocular movement - ENT no hearing loss, no congestion - Neck trachea midline - Respiratory normal respiratory effort, clear to auscultation - Cardiovascular Rhythm: regular Heart Sounds: normal: S1, S2 - Abdomen Abdomen: soft, bowel sounds - Integumentary normal turgor - Neurologic no disoriented, no combative - Musculoskeletal uses walker - Psychiatric oriented to time, oriented to person, oriented to place, speech is normal, memory intact breast exam: BRA: 34B inspection: grade 2/3 bilateral ptosis; well-healed scar left breast prior biopsy Palpation: Right breast: Multiple positional exam fibrocystic changes, no dominant masses or nodules of concern Right axilla: No adenopathy of concern Left breast: Multi-positional exam well-healed scar fibrocystic changes no dominant masses or nodules of concern Left axilla: No adenopathy of concern Results Mammogram and ultrasound results reviewed Assessment and Plan Assessment: Impression: 1. Radiographic abnormality right breast 2. Left breast history of LCIS 3. Fibrocystic breast changes 4. Family history of breast cancer 5. Kidney transplant on immunosuppression 6. right shoulder pain Plan: 1. Ultrasound-guided core biopsy right breast 2. Follow-up after ultrasound-guided core biopsy 3. Consider chemoprevention secondary to LCIS in the past 4. follow with DR. Henao regarding shoulder pain Risks and benefits of procedure discussed with the patient. These include but are not limited to bleeding, infection, reaction to anesthetic. She understands and wishes to proceed. CC: Dr. Henao encounter 45 minutes, > 50% of time in planning and counselling
== END | disposition home or self-care (01) ==
LOC: WWCWWP 15:41
PROVIDERS: ATTEND Surgery
DX: Z53.9 Procedure and treatment not carried out, unspecified reason (principal)

== ENCOUNTER → 2020-05-08 | Day surgery (SDC) | payer MEDICARE ==
[2020-05-08 12:34] VITALS: RESP 16
--- NOTE | 2020-05-08 13:51 | USB ---
EXAMINATION TYPE: US breast aspiration single RT DATE OF EXAM: 05/08/2020 CLINICAL HISTORY: R92.8, Abnormal mammogram. Abnormal ultrasound. TECHNIQUE: Ultrasound guided fine needle aspiration and/or core biopsy of right breast. COMPARISON: Prior ultrasound April 19, 2020 and older studies. FINDINGS: The procedure of ultrasound guided core fine-needle aspiration and/or biopsy was explained to the patient. Benefits, alternatives, and risks were discussed. An informed consent was then obta ined. The patient was placed in supine positioning for imaging and for the procedure. Preprocedure ultraso und redemonstrates a 5 mm round circumscribed lesion that is hypoechoic 4:00 position zone A right br east. Suggestion of increased through transmission on prior exam. The overlying skin was prepped and draped in usual sterile fashion. Lidocaine is used as anesthetic into the skin and subcutaneous tissu e up to area of concern in the right breast. Under ultrasound guidance, a 18-gauge needle was advanced into the lesion and ultrasound aspiration w as successful in obtaining trace less than 1 cc cloudy fluid. After sampling tiny residual lesion pre sumed residual fluid remains present. Sampling via biopsy not performed as no solid or vascular compo nent identified. The patient tolerated the procedure well without any immediate complication. The patient was kept in the radiology department for short stay after the procedure and then discharged home in stable condi tion. Fluid discarded due to tiny size of sample at time of procedure. Biopsy clip is not placed. IMPRESSION: Successful, uncomplicated ultrasound guided fine needle aspiration of area of concern in the right breast. Biopsy deferred. BI-RADS 2 benign finding Recommendation: Precautionary diagnostic right breast ultrasound follow-up in 6 months time. Short-te rm follow-up discussed with patient after procedure performed at time of procedure.
[2020-05-08 13:58] VITALS: BP 117/66; PULSE 77; TEMP 98
== END ==
LOC: RADUSWWP 11:59
PROVIDERS: ATTEND Surgery
DX: N64.89 Other specified disorders of breast (principal); R92.8 Other abnormal and inconclusive findings on diagnostic imaging of breast
CPT/HCPCS: 76942; 19000; J2001

== ENCOUNTER → 2020-10-09 | Outpatient (CLI) | payer MEDICARE ==
--- NOTE | 2020-10-09 11:32 | USB ---
Reason for exam: follow-up at short interval from prior study. History: Patient is postmenopausal and has history of breast cancer at age 53. Family history of premenopausal breast cancer in aunt at age 40. US breast aspiration single RT of the right breast, May 08, 2020. Lumpectomy of the left breast, 1993. Excisional biopsy of the left breast. Physical Findings: Nurse did not find any significant physical abnormalities on exam. US Breast Limited RT Left limited breast ultrasound including focal area of concern, retroareolar and axilla demonstrates a 0.5 x 0.4 x 0.5cm oval, mixed lesion at 4 o'clock prior aspiration and a 0.7 x 0.5 x 0.6cm oval, cystic lesion at 5 o'clock. These results were verbally communicated with the patient and result sheet given to the patient on 10/09/20. ASSESSMENT: Benign, BI-RAD 2 RECOMMENDATION: Return to routine screening mammogram schedule for both breasts. Back on schedule for March 2021.
== END | disposition home or self-care (01) ==
LOC: RADUSWWP 10:15
PROVIDERS: ATTEND Surgery
DX: R92.8 Other abnormal and inconclusive findings on diagnostic imaging of breast (principal)

== ENCOUNTER → 2020-10-25 | Outpatient (CLI) | payer MEDICARE ==
[2020-10-25 09:54] VITALS: BP 99/65; PULSE 69; RESP 18; TEMP 98.2
--- NOTE | 2020-10-25 10:46 | P.PN ---
Subjective Progress Note Date: 10/25/20 Principal diagnosis: ultrasound change in the right breast Holly is an 80 year old female seen in consultation for Dr. Henao on 04-20-20 [place] [address]. This revealed an area of concern in the right breast for which ultrasound-guided core biopsy was recommended. She a bilateral mammogram performed on 710-20 concern was for a suspicious 5 mm hypodensity lesion 5 cm from the nipple in the right breast. This was that for which the ultrasound was performed and ultrasound guided core biopsy was recommended. The patient did not feel any lumps masses or nodules in her breast. She denied any nipple discharge or skin changes. She was not compla ining of any pain in her breast. She had no history of any recent trauma or infection in the breast. Of importance is the fact that she had undergone a left breast lumpectomy in the past for lobular carcinoma in situ. She did not receive any hormonal therapy. Patient [place] [address]. An 18-gauge needle was advanced into the lesion and ultrasound aspiration was successful in obtaining less than 1 mL of cloudy fluid. After sampling tiny residual lesion presumed residual fluid remained present. Sampling via biopsy was not performed as no solid or vascular component was identified. Precautionary right breast ultrasound in 6 months was recommended. [place] [address]. This revealed a 0.5 x 0.5 Centimeter mixed lesion at 4:00 prior aspiration and a 0.7 x 0.6 cm cystic lesion at 5:00. It was felt to be benign BIRADS 2 and bilateral mammogram back on schedule in March was recommended. He does not feel anything in her breast of concern. She is not complaining of any nipple discharge or skin changes. 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) tonsil Medical History: right shoulder pain, started yesterday 04-19-20 on steriods secondary to kidney transplant uses a cane to walk Social History: nicotine: none alcohol: none drugs: none - Constitutional Constitutional: Denies chills, Denies fever - EENT Eyes: denies blurred vision, denies pain Ears: bilateral: decreased hearing, deny: tinnitus Ears, nose, mouth and throat: Denies headache, Denies sore throat - Breasts Breasts: bilateral: as per HPI - Cardiovascular Cardiovascular: Reports high blood pressure, Denies chest pain, Denies shortness of breath - Respiratory Respiratory: Denies cough, - Gastrointestinal Gastrointestinal: Denies abdominal pain, Denies diarrhea, Denies nausea, Denies vomiting - Genitourinary (Female) Comment: FSGS Genitourinary: Denies dysuria, Denies hematuria - Menstruation Menstruation: Reports postmenopausal - Musculoskeletal Comment: arthritis, uses a walker - Integumentary Integumentary: Denies pruritus, Denies rash - Neurological Neurological: Denies numbness, Denies weakness - Psychiatric Psychiatric: Denies anxiety, Denies depression - Endocrine Endocrine: Denies fatigue, Denies weight change - Hematologic/Lymphatic Comment: none - Allergic/Immunologic Allergic/Immunologic: Reports as per HPI Objective - Vital Signs Vital signs: Vital Signs Temp 98.2 F 10/25/20 09:51 Pulse 69 10/25/20 09:51 Resp 18 10/25/20 09:51 BP 99/65 10/25/20 09:51 Pulse Ox 96 10/25/20 09:51 Intake & Output 10/24/20 10/25/20 10/25/20 18:59 06:59 18:59 Weight 54.885 kg - Exam BMI 22.9 - Constitutional General appearance: Present: average body habitus - EENT Eyes: Present: EOMI ENT: Present: hearing grossly normal - Neck Neck: Present: normal ROM - Respiratory Respiratory: bilateral: CTA - Cardiovascular Rhythm: regular Heart sounds: normal: S1, S2 - Gastrointestinal General gastrointestinal: Present: normal bowel sounds, soft - Integumentary Integumentary: Present: normal turgor - Musculoskeletal Musculoskeletal Comment(s): uses cane - Psychiatric Psychiatric: Present: A&O x's 3, appropriate affect, intact judgment & insight - Additional findings Additional findings: Breast Exam: BRA: 34C inspection: Grade 3 ptosis bilateral Palpation: Right breast: Multiple positional exam fibrocystic changes, no dominant masses or nodules of concern Right axilla: No adenopathy of concern Left breast: Multi-positional exam fibrocystic changes no dominant masses or nodules of concern Left axilla: No adenopathy of concern Assessment and Plan Assessment: Impression: right shoulder pain, started yesterday 04-19-20 on steriods secondary to kidney transplant uses a cane to walk Fibrocystic breast changes Recent ultrasound on of the right breast benign BIRADS 2 Plan: 1. Repeat bilateral mammogram in March 2021 with physician exam at that time At this time there is nothing to warrant biopsy on physical examination or radiographic study CC: Dr. Henao encounter 18 minutes, time spent in reviewing records, physical exam, and counselling.
== END | disposition home or self-care (01) ==
LOC: WWCWWP 09:43
PROVIDERS: ATTEND Surgery
DX: Z53.9 Procedure and treatment not carried out, unspecified reason (principal)

== ENCOUNTER 2021-01-25 16:47 | Emergency (ER) | payer MEDICARE ==
[2021-01-25] MEDS ORDERED: ACETAMINOPHEN TAB 325 MG TAB PO STA (17:20)
[2021-01-25] MEDS ORDERED: MORPHINE SULFATE 4 MG/ML SYRINGE IVP STA (17:21)
[2021-01-25 17:53] LABS: Basophils % (A) 0 %; Eosinophils # (A) 0.2 k/uL (0-0.7); Eosinophils % (A) 1 %; HCT 34.9 % (34.0-46.0); HGB 11.7 gm/dL (11.4-16.0); Lymphocytes # (A) 0.7 k/uL (1.0-4.8); Lymphocytes % (A) 4 %; MCH 29.9 pg (25.0-35.0); MCHC 33.7 g/dL (31.0-37.0); MCV 88.7 fL (80.0-100.0); Mean Platelet Volume 9.3; Monocytes # (A) 1.6 k/uL (0-1.0); Monocytes % (A) 10 %; Neutrophils # (A) 14.2 k/uL (1.3-7.7); Neutrophils % (A) 84 %; Platelet Count 308 k/uL (150-450); RBC 3.93 m/uL (3.80-5.40); RDW 14.6 % (11.5-15.5); WBC 16.9 k/uL (3.8-10.6)
[2021-01-25] MEDS ORDERED: CLINDAMYCIN 600 MG in DEXTROSE 5% IN WATER 50 ML IVPB STA ×2 (17:58)
[2021-01-25 18:04] LABS: Albumin 4.7 g/dL (3.5-5.0); C Reactive Protein 1.7 mg/dL (<1.0); Calcium 10.6 mg/dL (8.4-10.2); Potassium 3.7 mmol/L (3.5-5.1); Total Bilirubin 1.9 mg/dL (0.2-1.3); Total Protein 7.2 g/dL (6.3-8.2)
[2021-01-25 18:09] LABS: INR 0.9 (<1.2); Partial Thromboplastin Time 21.8 sec (22.0-30.0); Prothrombin Time 10.2 sec (9.0-12.0)
--- NOTE | 2021-01-25 18:16 | XR ---
EXAMINATION TYPE: XR chest 1V portable DATE OF EXAM: 01/25/2021 COMPARISON: 01/08/2011 HISTORY: Fever TECHNIQUE: Single view FINDINGS: There is no heart failure nor confluent pneumonic infiltrate. Costophrenic angles are clear . Thoracic aorta is atheromatous. There is no definite pleural effusion. IMPRESSION: No active cardiopulmonary disease. No change.
[2021-01-25 18:30] VITALS: PULSE 77; TEMP 99.7
[2021-01-25 18:44] LABS: Erythrocyte Sedimentation Rate 15 mm/hr (0-20)
[2021-01-25] MEDS ORDERED: SODIUM CHLORIDE 0.9% 500 ML 500 ML IV STA (18:52)
--- NOTE | 2021-01-25 18:55 | ED ---
General Adult HPI - General Chief complaint: Extremity Injury, Upper Stated complaint: Hand injury Time Seen by Provider: 01/25/21 17:02 Source: patient Mode of arrival: ambulatory Limitations: no limitations - History of Present Illness Initial comments: 80-year-old female presents to the emergency room for a chief, and of hand injury. Patient states that she had a pain in her hand that started yesterday. States she does not remember hurting it but went to her doctor who ordered an outpatient x-ray and told her she had dislocated her thumb. Patient presents for this today. On presentation patient has significant pain with moving the thumb of the left hand. Patient denies any fevers at home. Patient has no other complaints at this time including shortness of breath, chest pain, abdominal pain, nausea or vomiting, headache, or visual changes. - Related Data Home Medications Medication Instructions Recorded Confirmed Atenolol 50 mg PO DAILY 12/13/14 10/25/20 NIFEdipine [Nifedical Xl] 60 mg PO DAILY 12/13/14 10/25/20 cloNIDine HCL [Clonidine HCl] 0.1 mg PO BID 12/13/14 10/25/20 Atorvastatin [Lipitor] 20 mg PO HS 05/14/16 10/25/20 Magnesium 500 mg PO DAILY 05/14/16 10/25/20 predniSONE 5 mg PO DAILY 05/14/16 10/25/20 Furosemide [Lasix] 20 mg PO DAILY 10/22/18 10/25/[address] [Myfortic] 720 mg PO BID 10/22/18 10/25/20 Potassium 99 mg PO DAILY 10/22/18 10/25/20 cycloSPORINE [cycloSPORINE (GEQ 50 mg PO BID 10/22/18 10/25/20 for SandIMMUNE)] lisinopriL 60 mg PO HS 10/22/18 10/25/20 Pantoprazole [Protonix] 40 mg PO DAILY 04/20/20 10/25/20 Cholecalciferol [Vitamin D3 (25 25 mcg PO DAILY 10/25/20 10/25/20 Mcg = 1000 Iu)] Allergies Allergy/AdvReac Type Severity Reaction Status Date / Time No Known Allergies Allergy Verified 01/25/21 16:52 Review of Systems ROS Statement: Those systems with pertinent positive or pertinent negative responses have been documented in the HPI. ROS Other: All systems not noted in ROS Statement are negative. Past Medical History Past Medical History: Cancer, Hyperlipidemia, Hypertension, Renal Disease Additional Past Medical History / Comment(s): BILATERAL FSGS (FOCAL SEGMENTAL GLOMERULOSCLEROSIS), RIGHT KIDNEY TRANSPLANT (MAY 2007)., LOBULAR CARCINOMA INSITU WITH SURGERY., BACK PAIN- USES CANE,. OSTEOPOROSIS. History of Any Multi-Drug Resistant Organisms: None Reported Past Surgical History: Breast Surgery, Orthopedic Surgery, Tonsillectomy, Tubal Ligation Additional Past Surgical History / Comment(s): LEFT KNEE SURGERY, RIGHT KIDNEY TRANSPLANT MAY 2007. EGD WITH DILATION Past Anesthesia/Blood Transfusion Reactions: Motion Sickness, Postoperative Nausea & Vomiting (PONV) Past Psychological History: No Psychological Hx Reported Smoking Status: Never smoker Past Alcohol Use History: None Reported Past Drug Use History: None Reported - Past Family History Mother Family Medical History: No Reported History Brother(s) Family Medical History: Cancer Additional Family Medical History / Comment(s): COLON CANCER General Exam Limitations: no limitations General appearance: alert, in no apparent distress Head exam: Present: atraumatic, normocephalic Eye exam: Present: normal appearance, PERRL, EOMI. Absent: scleral icterus, conjunctival injection, periorbital swelling ENT exam: Present: normal exam, mucous membranes moist Neck exam: Present: normal inspection Respiratory exam: Present: normal lung sounds bilaterally. Absent: respiratory distress, wheezes, rales, rhonchi, stridor Cardiovascular Exam: Present: regular rate, normal rhythm, normal heart sounds. Absent: systolic murmur, diastolic murmur, rubs, gallop, clicks GI/Abdominal exam: Present: soft, normal bowel sounds. Absent: distended, tenderness, guarding, rebound, rigid Extremities exam: Present: tenderness (Significant tenderness to the left first digit worse around the carpal metacarpal joint.), normal capillary refill (cap refill less than 2 seconds in all digits of the left hand. Radial pulse 2+.), joint swelling (She has moderate to severe edema and erythema noted to the left hand radial aspect.). Absent: full ROM (Patient unable to move left first digit secondary to pain.), pedal edema, calf tenderness Course Vital Signs 01/25/21 01/25/21 16:47 18:29 Temperature 100.1 F H 99.7 F H Pulse Rate 80 77 Respiratory 18 18 Rate Blood Pressure 135/78 137/65 O2 Sat by Pulse 98 97 Oximetry Medical Decision Making - Medical Decision Making Patient presents with a low-grade fever of 100.1. Patient is a kidney transplant patient on immunosuppressants. Physical exam finding does reveal erythema and edema of the left hand. Interestingly x-ray did reveal dislocation of the first metacarpal from the carpal row. However I did speak to orthopedics who believe she is potentially missing a bone in the wrist. CBC did reveal a white count of 17 with a left shift. CMP unremarkable. Lactic acid, urinalysis, and blood cultures pending. Chest x-ray does show no acute cardiopulmonary disease. I did speak with orthopedics information resources director for facility who did not feel they could manage this as patient may require hand surgery. I did speak with the [facility] and they will accept the patient to the ER. Patient was started on Ancef and clindamycin. Updated on plan. - Lab Data Result diagrams: 01/25/21 17:39 01/25/21 17:39 Lab Results 01/25/21 01/25/21 01/25/21 Range/Units 17:39 17:39 17:39 WBC 16.9 H (3.8-10.6) k/uL RBC 3.93 (3.80-5.40) m/uL Hgb 11.7 (11.4-16.0) gm/dL Hct 34.9 (34.0-46.0) % MCV 88.7 (80.0-100.0) fL MCH 29.9 (25.0-35.0) pg MCHC 33.7 (31.0-37.0) g/dL RDW 14.6 (11.5-15.5) % Plt Count 308 (150-450) k/uL MPV 9.3 Neutrophils % 84 % Lymphocytes % 4 % Monocytes % 10 % Eosinophils % 1 % Basophils % 0 % Neutrophils # 14.2 H (1.3-7.7) k/uL Lymphocytes # 0.7 L (1.0-4.8) k/uL Monocytes # 1.6 H (0-1.0) k/uL Eosinophils # 0.2 (0-0.7) k/uL Basophils # 0.0 (0-0.2) k/uL ESR 15 (0-20) mm/hr PT 10.2 (9.0-12.0) sec INR 0.9 (<1.2) APTT 21.8 L (22.0-30.0) sec Sodium 137 (137-145) mmol/L Potassium 3.7 (3.5-5.1) mmol/L Chloride 103 (98-107) mmol/L Carbon Dioxide 17 L (22-30) mmol/L Anion Gap 17 mmol/L BUN 22 H (7-17) mg/dL Creatinine 1.08 H (0.52-1.04) mg/dL Est GFR (CKD-EPI)AfAm 56 (>60 ml/min/1.73 sqM) Est GFR (CKD-EPI)NonAf 49 (>60 ml/min/1.73 sqM) Glucose 136 H (74-99) mg/dL Calcium 10.6 H (8.4-10.2) mg/dL Total Bilirubin 1.9 H (0.2-1.3) mg/dL AST 20 (14-36) U/L ALT 12 (4-34) U/L Alkaline Phosphatase 80 (38-126) U/L C-Reactive Protein 1.7 H (<1.0) mg/dL Total Protein 7.2 (6.3-8.2) g/dL Albumin 4.7 (3.5-5.0) g/dL Coronavirus (PCR) (Not Detectd) 01/25/21 Range/Units 17:39 WBC (3.8-10.6) k/uL RBC (3.80-5.40) m/uL Hgb (11.4-16.0) gm/dL Hct (34.0-46.0) % MCV (80.0-100.0) fL MCH (25.0-35.0) pg MCHC (31.0-37.0) g/dL RDW (11.5-15.5) % Plt Count (150-450) k/uL MPV Neutrophils % % Lymphocytes % % Monocytes % % Eosinophils % % Basophils % % Neutrophils # (1.3-7.7) k/uL Lymphocytes # (1.0-4.8) k/uL Monocytes # (0-1.0) k/uL Eosinophils # (0-0.7) k/uL Basophils # (0-0.2) k/uL ESR (0-20) mm/hr PT (9.0-12.0) sec INR (<1.2) APTT (22.0-30.0) sec Sodium (137-145) mmol/L Potassium (3.5-5.1) mmol/L Chloride (98-107) mmol/L Carbon Dioxide (22-30) mmol/L Anion Gap mmol/L BUN (7-17) mg/dL Creatinine (0.52-1.04) mg/dL Est GFR (CKD-EPI)AfAm (>60 ml/min/1.73 sqM) Est GFR (CKD-EPI)NonAf (>60 ml/min/1.73 sqM) Glucose (74-99) mg/dL Calcium (8.4-10.2) mg/dL Total Bilirubin (0.2-1.3) mg/dL AST (14-36) U/L ALT (4-34) U/L Alkaline Phosphatase (38-126) U/L C-Reactive Protein (<1.0) mg/dL Total Protein (6.3-8.2) g/dL Albumin (3.5-5.0) g/dL Coronavirus (PCR) Not Detected (Not Detectd) Disposition Clinical Impression: Infection of hand, Immunosuppressed status, History of kidney transplant Disposition: OTHER INSTITUTION NOT DEFINED Is patient prescribed a controlled substance at d/c from ED?: No Referrals: Manny Henao MD [Primary Care Provider] - 1-2 days Time of Disposition: 18:55 - Out of Hospital Transfer - Req. Specs Out of Hospital Transfer - Requested Specifics: Other Emergency Center ([facility])
[2021-01-25] MEDS ORDERED: SODIUM CHLORIDE 0.9% 1,000 ML IV STA (19:10)
[2021-01-25 19:52] VITALS: BP 139/73; RESP 16
== END 2021-01-25 19:52 | disposition other institution (70) ==
LOC: EC 16:47
DX: L08.9 Local infection of the skin and subcutaneous tissue, unspecified (principal); D84.821 Immunodeficiency due to drugs; E78.5 Hyperlipidemia, unspecified; I10 Essential (primary) hypertension; Z20.822 Contact with and (suspected) exposure to COVID-19; Z79.52 Long term (current) use of systemic steroids; Z94.0 Kidney transplant status
CPT/HCPCS: 36415; 80053; 85652; 83605; 85025; 85610; 85730; 86140; 87040; 87635; 71045; 99284; 96365; 96375 ×2; J2270; J0690

== ENCOUNTER → 2021-01-25 | Outpatient (CLI) | payer MEDICARE ==
--- NOTE | 2021-01-25 16:25 | XR ---
EXAMINATION TYPE: XR hand complete LT DATE OF EXAM: 01/25/2021 COMPARISON: None HISTORY: Pain and swelling base of first metacarpal TECHNIQUE: 3 view left hand FINDINGS: There are advanced degenerative changes at the first carpal metacarpal junction. There appe ars to be complete dislocation of the first metacarpal from the residual trapezium. There is erosion and destruction of the trapezium. Trapezoid has degenerative changes. No acute fractures are identified. There is diffuse soft tissue swelling within the wrist. Advanced degenerative changes are within the distal interphalangeal joint space of the fifth digit. A dvanced degenerative changes are in the first distal interphalangeal joint space. Additional degenera tive changes are noted in the proximal distal interphalangeal joint spaces of the remaining digits. C onsider psoriatic arthritis within the differential. Consider rheumatoid arthritis. IMPRESSION: 1. Dislocation of the first metacarpal from the carpal row. There is chronic obstructive changes thr ough the distal carpal row along the radial aspect of the first carpal metacarpal junction. 2. Overlying soft tissue swelling at the wrist. 3. Additional degenerative changes within the joint spaces. This is advanced at the distal interphala ngeal joint space of the index and fifth digits.
== END | disposition home or self-care (01) ==
LOC: RADXRMAIN 15:33
PROVIDERS: ATTEND Nurse Practitioner Family
DX: S63.045A Dislocation of carpometacarpal joint of left thumb, initial encounter (principal); M19.042 Primary osteoarthritis, left hand

== ENCOUNTER → 2021-02-19 | Outpatient (CLI) | payer MEDICARE ==
[~2021-02-19] MED LIST changes: +DENOSUMAB 60 MG/ML 1 ML SYRINGE SQ NR; -DENOSUMAB 60 MG/ML 1 ML SYRINGE SQ ONE
[2021-02-19 08:26] VITALS: BP 156/89; PULSE 63; RESP 16; TEMP 97.7
== END | disposition home or self-care (01) ==
LOC: PROCWHC3 07:48
PROVIDERS: ATTEND Nurse Practitioner Family
DX: M81.0 Age-related osteoporosis without current pathological fracture (principal)
CPT/HCPCS: 96372; J0897

== ENCOUNTER → 2021-04-01 | Outpatient (CLI) | payer MEDICARE ==
--- NOTE | 2021-04-02 13:25 | MM ---
Reason for exam: screening (asymptomatic). Last mammogram was performed 1 year ago. History: Patient is postmenopausal and has history of breast cancer at age 53. Family history of premenopausal breast cancer in aunt at age 40. US breast aspiration single RT of the right breast, May 08, 2020. Lumpectomy of the left breast, 1993. Excisional biopsy of the left breast. Physical Findings: A clinical breast exam by your physician is recommended on an annual basis and results should be correlated with mammographic findings. MG 3D Screening Mammo W/Cad Bilateral CC and MLO view(s) were taken. Prior study comparison: March 30, 2020, bilateral MG 3d screening mammo w/cad. September 30, 2016, bilateral MG 3d screening mammo w/cad. The breast tissue is heterogeneously dense. This may lower the sensitivity of mammography. ASSESSMENT: Negative, BI-RAD 1 RECOMMENDATION: Routine screening mammogram of both breasts in 1 year.
== END | disposition home or self-care (01) ==
LOC: RADMAMWWP 11:03
PROVIDERS: ATTEND Surgery
DX: Z12.31 Encounter for screening mammogram for malignant neoplasm of breast (principal); Z78.0 Asymptomatic menopausal state; Z85.3 Personal history of malignant neoplasm of breast; Z80.3 Family history of malignant neoplasm of breast
CPT/HCPCS: 77063; 77067

== ENCOUNTER → 2021-05-20 | Outpatient (CLI) | payer MEDICARE ==
[2021-05-20 13:48] LABS: Basophils # (A) 0.04 X 10*3/uL (0.00-0.10); Basophils % (A) 0.5 %; Eosinophils # (A) 0.13 X 10*3/uL (0.04-0.35); Eosinophils % (A) 1.8 %; HCT 38.1 % (37.2-46.3); HGB 11.6 g/dL (12.0-15.0); Lymphocytes # (A) 0.99 X 10*3/uL (0.90-5.00); Lymphocytes % (A) 13.5 %; MCH 28.4 pg (27.0-32.0); MCHC 30.4 g/dL (32.0-37.0); MCV 93.4 fL (80.0-97.0); Mean Platelet Volume 12.8 fL (9.5-12.2); Monocytes # (A) 1.09 X 10*3/uL (0.20-1.00); Monocytes % (A) 14.9 %; Neutrophils # (A) 5.02 X 10*3/uL (1.80-7.70); Neutrophils % (A) 68.8 %; Platelet Count 273 X 10*3/uL (140-440); RBC 4.08 X 10*6/uL (4.10-5.20); RDW 14.9 % (11.5-14.5); WBC 7.31 X 10*3/uL (4.50-10.00)
[2021-05-20 16:34] LABS: African American GFR (CKD) 61.2 (60.0-200.0); Albumin 4.1 g/dL (3.80-4.90); Albumin/Globulin Ratio 2.41 (1.60-3.17); Anion Gap 9.9 mmol/L (4.00-12.00); Calcium 9.2 mg/dL (8.7-10.3); Carbon Dioxide 25.1 mmol/L (21.6-31.8); Globulin 1.7 g/dL (1.6-3.3); Non-African American GFR(CKD) 52.8 (60.0-200.0); Total Bilirubin 1.7 mg/dL (0.2-1.2); Total Protein 5.8 g/dL (6.2-8.2)
== END | disposition home or self-care (01) ==
LOC: LABWHC1 07:26
PROVIDERS: ATTEND Nurse Practitioner Family
DX: R73.9 Hyperglycemia, unspecified (principal)
CPT/HCPCS: 36415; 80053; 85025

== ENCOUNTER → 2021-07-16 | Outpatient (CLI) | payer MEDICARE ==
[2021-07-16 15:44] LABS: Bilirubin, Conjugated 0.26 mg/dL (0.20-0.40); Bilirubin,Unconjugated 0.84 mg/dL (0.20-1.00); Total Bilirubin 1.1 mg/dL (0.30-1.20)
== END | disposition home or self-care (01) ==
LOC: LABWHC1 07:37
PROVIDERS: ATTEND Nurse Practitioner Family
DX: E80.6 Other disorders of bilirubin metabolism (principal); Z94.0 Kidney transplant status
CPT/HCPCS: 36415; 82248

== ENCOUNTER → 2021-08-20 | Outpatient (CLI) | payer MEDICARE ==
[2021-08-20 11:23] LABS: Basophils # (A) 0.05 X 10*3/uL (0.00-0.10); Basophils % (A) 0.6 %; Eosinophils # (A) 0.18 X 10*3/uL (0.04-0.35); HCT 37.8 % (37.2-46.3); HGB 11.4 g/dL (12.0-15.0); Lymphocytes # (A) 0.99 X 10*3/uL (0.90-5.00); MCH 28.7 pg (27.0-32.0); MCHC 30.2 g/dL (32.0-37.0); MCV 95.2 fL (80.0-97.0); Mean Platelet Volume 12.3 fL (9.5-12.2); Monocytes # (A) 1.43 X 10*3/uL (0.20-1.00); Monocytes % (A) 15.9 %; Neutrophils # (A) 6.32 X 10*3/uL (1.80-7.70); Neutrophils % (A) 69.9 %; Platelet Count 302 X 10*3/uL (140-440); RBC 3.97 X 10*6/uL (4.10-5.20); RDW 15.1 % (11.5-14.5); WBC 9.02 X 10*3/uL (4.50-10.00)
[2021-08-20 12:31] LABS: ALT 12 U/L (8-44); AST 14 U/L (13-35); African American GFR (CKD) 57.7 (60.0-200.0); Albumin 4.2 g/dL (3.8-4.9); Albumin/Globulin Ratio 2.39 (1.60-3.17); Alkaline Phosphatase 76 U/L (41-126); BUN/Creat Ratio 15.71 Ratio (12.00-20.00); Blood Urea Nitrogen 16.5 mg/dL (9.0-27.0); Carbon Dioxide 21.6 mmol/L (20.0-27.5); Chloride 102 mmol/L (96-109); Chol/HDL Ratio 5.43 Ratio; Globulin 1.7 g/dL (1.6-3.3); Glucose 102 mg/dL (70-110); LDL Cholesterol,Calculated 130.1 mg/dL (0.0-131.0); Non-African American GFR(CKD) 49.8 (60.0-200.0); Potassium 3.7 mmol/L (3.5-5.5); Sodium 140 mmol/L (135-145); Total Protein 5.9 g/dL (6.2-8.2)
== END | disposition home or self-care (01) ==
LOC: LABWHC1 07:00
PROVIDERS: ATTEND Internal Medicine Geriatric Medicine
DX: Z00.00 Encounter for general adult medical examination without abnormal findings (principal); I48.0 Paroxysmal atrial fibrillation; E78.2 Mixed hyperlipidemia; D50.9 Iron deficiency anemia, unspecified; R73.9 Hyperglycemia, unspecified
CPT/HCPCS: 36415; 80053; 80061; 83036; 84439; 84443; 85025

== ENCOUNTER 2021-09-30 23:07 | Inpatient (IN) | payer MEDICARE ==
[2021-09-30] MEDS ORDERED: MORPHINE SULFATE 4 MG/ML SYRINGE IV STA (23:20)
[2021-09-30] MEDS ORDERED: SODIUM CHLORIDE 0.9% 1,000 ML IV STA (23:20)
[2021-09-30] MEDS ORDERED: ONDANSETRON 4 MG/2 ML VIAL IVP STA (23:20)
[2021-09-30] MEDS ORDERED: PANTOPRAZOLE 40 MG/10 ML VIAL IVP STA (23:20)
--- NOTE | 2021-09-30 23:24 | ED ---
Abdominal Pain HPI - General Stated Complaint: Abdominal Pain Time Seen by Provider: 09/30/21 23:10 Source: RN notes reviewed, old records reviewed, Caregiver Mode of arrival: EMS Limitations: altered mental status, physical limitation - History of Present Illness Initial Comments: This is an 81-year-old female presenting in significant distress. Patient presents by EMS for evaluation. She comes in for abdominal pain apparently sudden onset of abdominal pain progressively worsened with nausea vomiting home. Patient states that daughter came over and she did call EMS to come in the hospital. Patient has history of kidney replaced reviewed. She was feeling fine prior to this episode today. No recent fevers or illness. Patient states the pain is severe patient poor strain secondary to significant amount of pain MD Complaint: abdominal pain -: hour(s) Location: diffuse, epigastric Radiation: epigastric Migration to: no migration Severity: severe Severity scale (1-10): 10 Quality: stabbing, sharp Consistency: constant Improves With: nothing Worsens With: nothing Context: other (none) Associated Symptoms: nausea, vomiting Treatments Prior to Arrival: other (none) - Related Data Home Medications Medication Instructions Recorded Confirmed Atenolol 100 mg PO DAILY 12/13/14 02/19/21 NIFEdipine [Nifedical Xl] 60 mg PO DAILY 12/13/14 02/19/21 cloNIDine HCL [Clonidine HCl] 0.1 mg PO BID 12/13/14 02/19/21 Atorvastatin [Lipitor] 20 mg PO HS 05/14/16 02/19/21 Magnesium 500 mg PO DAILY 05/14/16 02/19/21 predniSONE 5 mg PO DAILY 05/14/16 02/19/21 Furosemide [Lasix] 20 mg PO DAILY 10/22/18 02/19/[address] [Myfortic] 720 mg PO BID 10/22/18 02/19/21 Potassium 99 mg PO DAILY 10/22/18 02/19/21 cycloSPORINE [cycloSPORINE (GEQ 50 mg PO BID 10/22/18 02/19/21 for SandIMMUNE)] lisinopriL 60 mg PO HS 10/22/18 02/19/21 Pantoprazole [Protonix] 40 mg PO DAILY 04/20/20 02/19/21 Cholecalciferol [Vitamin D3 (25 25 mcg PO DAILY 10/25/20 02/19/21 Mcg = 1000 Iu)] Apixaban [Eliquis] 5 mg PO BID 02/19/21 02/19/21 Allergies Allergy/AdvReac Type Severity Reaction Status Date / Time No Known Allergies Allergy Verified 02/19/21 08:23 Review of Systems ROS Statement: Those systems with pertinent positive or pertinent negative responses have been documented in the HPI. ROS Other: All systems not noted in ROS Statement are negative. Past Medical History Past Medical History: Cancer, Hyperlipidemia, Hypertension, Renal Disease Additional Past Medical History / Comment(s): BILATERAL FSGS (FOCAL SEGMENTAL GLOMERULOSCLEROSIS), RIGHT KIDNEY TRANSPLANT (MAY 2007)., LOBULAR CARCINOMA INSITU WITH SURGERY., BACK PAIN- USES CANE,. OSTEOPOROSIS. History of Any Multi-Drug Resistant Organisms: None Reported Past Surgical History: Breast Surgery, Orthopedic Surgery, Tonsillectomy, Tubal Ligation Additional Past Surgical History / Comment(s): LEFT KNEE SURGERY, RIGHT KIDNEY TRANSPLANT MAY 2007. EGD WITH DILATION Past Anesthesia/Blood Transfusion Reactions: Motion Sickness, Postoperative Nausea & Vomiting (PONV) Smoking Status: Never smoker - Past Family History Mother Family Medical History: No Reported History Brother(s) Family Medical History: Cancer Additional Family Medical History / Comment(s): COLON CANCER General Exam Limitations: altered mental status General appearance: alert, anxious, in distress, cachectic Head exam: Present: atraumatic, normocephalic, normal inspection Eye exam: Present: normal appearance, PERRL, EOMI. Absent: scleral icterus, conjunctival injection, periorbital swelling ENT exam: Present: normal exam, mucous membranes dry Neck exam: Present: normal inspection. Absent: tenderness, meningismus, lymphadenopathy Respiratory exam: Present: respiratory distress, accessory muscle use. Absent: wheezes, rales, rhonchi, stridor Cardiovascular Exam: Present: regular rate, irregular rhythm, normal heart sounds. Absent: systolic murmur, diastolic murmur, rubs, gallop, clicks GI/Abdominal exam: Present: distended, tenderness, guarding, rebound, rigid. Absent: normal bowel sounds Extremities exam: Present: normal inspection, full ROM, normal capillary refill. Absent: tenderness, pedal edema, joint swelling, calf tenderness Back exam: Present: normal inspection Neurological exam: Present: alert, oriented X3, CN II-XII intact Psychiatric exam: Present: normal affect, normal mood Skin exam: Present: warm, dry, intact, normal color. Absent: rash Course Vital Signs 09/30/21 10/01/21 10/01/21 23:30 01:12 01:15 Temperature 98 F Pulse Rate 84 83 78 Respiratory 28 H 20 Rate Blood Pressure 137/108 54/34 107/71 O2 Sat by Pulse 94 L 94 L Oximetry 10/01/21 10/01/21 10/01/21 01:20 01:25 01:41 Temperature Pulse Rate 74 68 Respiratory 20 20 Rate Blood Pressure 47/37 69/28 70/39 O2 Sat by Pulse 95 95 Oximetry 10/01/21 10/01/21 10/01/21 01:48 02:00 02:15 Temperature Pulse Rate 74 74 74 Respiratory 24 24 Rate Blood Pressure 78/28 67/37 69/25 O2 Sat by Pulse 97 97 Oximetry 10/01/21 10/01/21 02:32 02:45 Temperature Pulse Rate 72 76 Respiratory 24 24 Rate Blood Pressure 70/23 80/31 O2 Sat by Pulse 97 97 Oximetry - Reevaluation(s) Reevaluation #1: 10/01/21 03:33 Medical record is reviewed Reevaluation #2: 10/01/21 03:33 patient significantly progressed with increasing dyspnea and tachypnea, patient began to be tired with altered mental status requiring intubation, pulse oxygenation was normal Reevaluation #3: 10/01/21 03:33 Patient's blood pressure continued monitoring Requiring central line in pressor support Reevaluation #4: 10/01/21 03:33 Focused family regarding findings here in the emergency department, questions are answered Family is aware of significant illness, morbidity and prognosis - Consultations Consultation #1: Spoke with Dr. Price re findings he will see the patient Consultation #2: Spoke with Dr. Nino for ICU he we'll admit the patient to the ICU Consultation #3: Spoke with Dr. Montgomery regarding admission she is agreeable to consult cardiology for atrial fibrillation Procedures - Central Line Placement Right IJ Consent Obtained: verbal consent Patient Placed on Monitor/Pulse Ox: Yes Central Line Prep: Chlorhexidine scrub Local Anesthesia Used: Lidocaine 1% Ultrasound Used for Placement: Yes Central Line Lumen Inserted: triple Bloods Obtained for Lab: Yes Central Line Position: sutured in place with 3-0 nylon Dressing Applied: Tegaderm Post Procedure X-Ray: tip of catheter in good position Patient Tolerated Procedure: well Complications: none - Intubation Sedative: Versed Paralytic: Rocuronium Laryngoscope: Chalino Size: 4 ET Tube Size: 7.5 ET Tube Uncuffed: No Tube Secured Location: teeth Tube Placement Confirmation: visualized tube passing through cords, equal breath sounds bilaterally, no breath sounds over epigastrium, confirmation by capnometry Patient Tolerated Procedure: well Intubation Complications: none Medical Decision Making - Lab Data Result diagrams: 09/30/21 23:56 09/30/21 23:56 Lab Results 09/30/21 09/30/21 09/30/21 Range/Units 23:56 23:56 23:56 WBC 6.8 (3.8-10.6) k/uL RBC 4.23 (3.80-5.40) m/uL Hgb 12.5 (11.4-16.0) gm/dL Hct 41.1 (34.0-46.0) % MCV 97.2 (80.0-100.0) fL MCH 29.5 (25.0-35.0) pg MCHC 30.3 L (31.0-37.0) g/dL RDW 13.8 (11.5-15.5) % Plt Count 245 (150-450) k/uL MPV 9.6 Neutrophils % (Manual) 39 % Band Neuts % (Manual) 46 % Lymphocytes % (Manual) 8 % Monocytes % (Manual) 3 % Metamyelocytes % 5 % Myelocytes % 1 % Neutrophils # (Manual) 5.70 (1.3-7.7) k/uL Lymphocytes # (Manual) 0.54 L (1.0-4.8) k/uL Monocytes # (Manual) 0.20 (0-1.0) k/uL Metamyelocytes # (Man) 0.34 H (0) k/uL Myelocytes # (Manual) 0.07 H (0) k/uL Nucleated RBCs 0 (0-0) /100 WBC Manual Slide Review Performed Large Platelets Present Hypochromasia Moderate Poikilocytosis (manual Present Anisocytosis (manual) Present Fragmented RBCs Present Sample Site ABG pH (7.35-7.45) ABG pCO2 (35-45) mmHg ABG pO2 (83-108) mmHg ABG HCO3 (21-25) mmol/L ABG Total CO2 (19-24) mmol/L ABG O2 Saturation (94-97) % ABG Base Excess mmol/L Jakob Test FiO2 % Sodium 137 (137-145) mmol/L Potassium 4.1 (3.5-5.1) mmol/L Chloride 102 (98-107) mmol/L Carbon Dioxide 10 L (22-30) mmol/L Anion Gap 25 mmol/L BUN 28 H (7-17) mg/dL Creatinine 1.85 H (0.52-1.04) mg/dL Est GFR (CKD-EPI)AfAm 29 (>60 ml/min/1.73 sqM) Est GFR (CKD-EPI)NonAf 25 (>60 ml/min/1.73 sqM) Glucose 107 H (74-99) mg/dL Lactic Ac Sepsis Rflx Plasma Lactic Acid Khris (0.7-2.0) mmol/L Calcium 9.4 (8.4-10.2) mg/dL Phosphorus 7.4 H (2.5-4.5) mg/dL Magnesium 2.7 H (1.6-2.3) mg/dL Total Bilirubin 1.5 H (0.2-1.3) mg/dL AST 45 H (14-36) U/L ALT 25 (4-34) U/L Alkaline Phosphatase 43 (38-126) U/L Total Protein 6.4 (6.3-8.2) g/dL Albumin 3.8 (3.5-5.0) g/dL Amylase 148 H (30-110) U/L Lipase 63 (23-300) U/L Urine Color Yellow Urine Appearance Clear (Clear) Urine pH 6.0 (5.0-8.0) Ur Specific [place] 1.010 (1.001-1.035) Urine Protein 2+ H (Negative) Urine Glucose (UA) Negative (Negative) Urine Ketones Negative (Negative) Urine Blood Trace H (Negative) Urine Nitrite Negative (Negative) Urine Bilirubin Negative (Negative) Urine Urobilinogen <2.0 (<2.0) mg/dL Ur Leukocyte Esterase Moderate H (Negative) Urine RBC 5 (0-5) /hpf Urine WBC 63 H (0-5) /hpf Urine WBC Clumps Occasional H (None) /hpf Ur Squamous Epith Cells <1 (0-4) /hpf Amorphous Sediment Occasional H (None) /hpf Urine Bacteria Rare H (None) /hpf Hyaline Casts 3 H (0-2) /lpf Urine Mucus Rare H (None) /hpf 09/30/21 10/01/21 10/01/21 Range/Units 23:56 00:40 01:49 WBC (3.8-10.6) k/uL RBC (3.80-5.40) m/uL Hgb (11.4-16.0) gm/dL Hct (34.0-46.0) % MCV (80.0-100.0) fL MCH (25.0-35.0) pg MCHC (31.0-37.0) g/dL RDW (11.5-15.5) % Plt Count (150-450) k/uL MPV Neutrophils % (Manual) % Band Neuts % (Manual) % Lymphocytes % (Manual) % Monocytes % (Manual) % Metamyelocytes % % Myelocytes % % Neutrophils # (Manual) (1.3-7.7) k/uL Lymphocytes # (Manual) (1.0-4.8) k/uL Monocytes # (Manual) (0-1.0) k/uL Metamyelocytes # (Man) (0) k/uL Myelocytes # (Manual) (0) k/uL Nucleated RBCs (0-0) /100 WBC Manual Slide Review Large Platelets Hypochromasia Poikilocytosis (manual Anisocytosis (manual) Fragmented RBCs Sample Site rrad ABG pH 7.23 L (7.35-7.45) ABG pCO2 35 (35-45) mmHg ABG pO2 >400 H (83-108) mmHg ABG HCO3 15 L (21-25) mmol/L ABG Total CO2 16 L (19-24) mmol/L ABG O2 Saturation 100.0 H (94-97) % ABG Base Excess -13.1 mmol/L Jakob Test Yes FiO2 100 % Sodium (137-145) mmol/L Potassium (3.5-5.1) mmol/L Chloride (98-107) mmol/L Carbon Dioxide (22-30) mmol/L Anion Gap mmol/L BUN (7-17) mg/dL Creatinine (0.52-1.04) mg/dL Est GFR (CKD-EPI)AfAm (>60 ml/min/1.73 sqM) Est GFR (CKD-EPI)NonAf (>60 ml/min/1.73 sqM) Glucose (74-99) mg/dL Lactic Ac Sepsis Rflx Y Plasma Lactic Acid Khris 12.6 H* (0.7-2.0) mmol/L Calcium (8.4-10.2) mg/dL Phosphorus (2.5-4.5) mg/dL Magnesium (1.6-2.3) mg/dL Total Bilirubin (0.2-1.3) mg/dL AST (14-36) U/L ALT (4-34) U/L Alkaline Phosphatase (38-126) U/L Total Protein (6.3-8.2) g/dL Albumin (3.5-5.0) g/dL Amylase (30-110) U/L Lipase (23-300) U/L Urine Color Urine Appearance (Clear) Urine pH (5.0-8.0) Ur Specific [place] (1.001-1.035) Urine Protein (Negative) Urine Glucose (UA) (Negative) Urine Ketones (Negative) Urine Blood (Negative) Urine Nitrite (Negative) Urine Bilirubin (Negative) Urine Urobilinogen (<2.0) mg/dL Ur Leukocyte Esterase (Negative) Urine RBC (0-5) /hpf Urine WBC (0-5) /hpf Urine WBC Clumps (None) /hpf Ur Squamous Epith Cells (0-4) /hpf Amorphous Sediment (None) /hpf Urine Bacteria (None) /hpf Hyaline Casts (0-2) /lpf Urine Mucus (None) /hpf - EKG Data -: EKG Interpreted by Me (EKG shows A. fib with RVR 101 QRS 80 QTC 484) - Radiology Data Radiology results: report reviewed (X-ray KUB shows significant small bowel dilation small bowel obstruction, chest x-ray shows positive ET tube placement, CT abdomen and pelvis does show bowel perforation with mesenteric ischemia, chest x-ray does show positive central line placement), image reviewed Critical Care Time Critical Care Time: Yes Total Critical Care Time: 31 Disposition Clinical Impression: Bowel perforation, Mesenteric ischemia, Atrial fibrillation, Lactic acidosis, Acute respiratory failure, REYNA (acute kidney injury) Disposition: ADMITTED IP TO THIS HOSP Condition: Critical Is patient prescribed a controlled substance at d/c from ED?: No Referrals: Manny Henao MD [Primary Care Provider] - 1-2 days
[2021-10-01 00:15] LABS: HCT 41.1 % (34.0-46.0); HGB 12.5 gm/dL (11.4-16.0); Hypochromasia Moderate; MCH 29.5 pg (25.0-35.0); MCHC 30.3 g/dL (31.0-37.0); MCV 97.2 fL (80.0-100.0); Mean Platelet Volume 9.6; Platelet Count 245 k/uL (150-450); RBC 4.23 m/uL (3.80-5.40); RDW 13.8 % (11.5-15.5); WBC 6.8 k/uL (3.8-10.6)
[2021-10-01 00:20] LABS: Amorphous Sediment,Urine Occasional /hpf; Appearance,Urine Clear (Clear); Bacteria,Urine Rare /hpf; Bilirubin,Urine Negative (Negative); Blood,Urine Trace (Negative); Color,Urine Yellow; Glucose,Urine (UA) Negative (Negative); Hyaline Casts,Urine 3 /lpf (0-2); Ketones,Urine Negative (Negative); Leukocyte Esterase,Urine Moderate (Negative); Mucus,Urine Rare /hpf; Nitrite,Urine Negative (Negative); Protein,Urine 2+ (Negative); RBC,Urine 5 /hpf (0-5); Squamous Epithelial Cell,Urine <1 /hpf (0-4); Urobilinogen,Urine <2.0 mg/dL (<2.0); WBC,Urine 63 /hpf (0-5)
[2021-10-01 00:24] LABS: Calcium 9.4 mg/dL (8.4-10.2); Total Bilirubin 1.5 mg/dL (0.2-1.3)
[2021-10-01 00:38] LABS: Potassium 4.1 mmol/L (3.5-5.1)
[2021-10-01 00:39] LABS: Albumin 3.8 g/dL (3.5-5.0); Magnesium 2.7 mg/dL (1.6-2.3); Phosphorus 7.4 mg/dL (2.5-4.5); Total Protein 6.4 g/dL (6.3-8.2)
--- NOTE | 2021-10-01 00:47 | XR ---
EXAMINATION TYPE: XR KUB DATE OF EXAM: 10/01/2021 COMPARISON: NONE HISTORY: Abdominal pain TECHNIQUE: 2 views FINDINGS: There are some dilated fluid-filled small bowel loops in the mid abdomen. There is no evide nce of free air. Heart is enlarged. Lung bases are clear. There is protrusio of the left acetabulum. IMPRESSION: Dilated small bowel suspicious for mechanical small bowel obstruction. No free air seen.
[2021-10-01] MEDS ORDERED: ROCURONIUM 10 MG/ML (5 ML VIAL) IV STA (01:05)
[2021-10-01] MEDS ORDERED: MIDAZOLAM 1 MG/ML 5 ML VIAL IV STA ×2 (01:05→01:14)
[2021-10-01] MEDS ORDERED: SODIUM CHLORIDE 0.9% 1,000 ML IV STA ×3 (01:14→03:35)
[2021-10-01] MEDS ORDERED: AMPICILLIN-SULBACTAM 3 GM in SODIUM CHLORIDE 0.9% 100 ML IVPB STA (01:14)
--- NOTE | 2021-10-01 01:52 | XR ---
EXAMINATION TYPE: XR chest 1V portable DATE OF EXAM: 10/01/2021 COMPARISON: 01/25/2021 HISTORY: Check tube placement TECHNIQUE: FINDINGS: Endotracheal tube is 3.5 cm from the tri. Nasogastric tube is in the stomach. There is n o heart failure. There is some mild atelectasis left lower lobe. Right lung is fairly clear. There is no pleural effusion. Thoracic aorta is atheromatous. IMPRESSION: There is some minimal atelectasis left lower lobe which appears new compared to the old e xam. Endotracheal tube in good position.
[2021-10-01 02:00] LABS: ABG Base Excess -13.1 mmol/L; ABG HCO3 15 mmol/L (21-25); ABG PCO2 35 mmHg (35-45); ABG PH 7.23 (7.35-7.45); ABG PO2 >400 mmHg (83-108); ABG TCO2 16 mmol/L (19-24); Allen Test Performed? Yes
[2021-10-01] MEDS: NOREPINEPHRINE 4 MG in SODIUM CHLORIDE 0.9% 250 ML IV ONE ×2 (02:04→05:54)
[2021-10-01 02:32] LABS: Band Neutrophils % 46 %; Lymphocytes # (M) 0.54 k/uL (1.0-4.8); Metamyelocytes # (M) 0.34 k/uL (0); Metamyelocytes % 5 %; Myelocytes # (M) 0.07 k/uL (0); Myelocytes % 1 %; Neutrophils % (M) 39 %; Nucleated Red Blood Cells 0 /100 WBC (0-0); Total Cells Counted 200
[2021-10-01 02:34] LABS: Large Platelets Present
[2021-10-01 02:35] LABS: Anisocytosis (M) Present; Poikilocytosis (M) Present
[2021-10-01 02:37] LABS: RBC Fragments Present
--- NOTE | 2021-10-01 02:47 | CT ---
EXAMINATION TYPE: CT abdomen pelvis wo con DATE OF EXAM: 10/01/2021 COMPARISON: None HISTORY: ams. abd pain CT DLP: 430 mGycm Automated exposure control for dose reduction was used. Images obtained from the diaphragm to the floor the pelvis with no contrast. There is a nasogastric tube in the stomach. There is some mild to moderate patchy infiltrate and atel ectasis left lower lobe. Heart is enlarged. There is small left pleural effusion. Right lung base is fairly clear. Liver is intact. Gallbladder is intact. Spleen is intact. There is no evidence of pancreatic mass. Th ere is a large pneumoperitoneum. There is no adrenal mass. There is bilateral moderate renal cortical thinning. There is no hydronephr osis. There is 3 cm cortical cyst lower pole right kidney. There is 2.5 cm cortical cyst lower pole l eft kidney. There is no retroperitoneal adenopathy. Abdominal aorta is atheromatous. There is right t ransplant kidney that shows no hydronephrosis. There is some mild fat stranding around the transplant kidney. There is a pessary in the vagina. There are some dilated fluid-filled loops of small bowel i n the midabdomen. There is small bowel wall thickening. Small bowel measures up to 3.2 cm. There are scattered multiple small bowel fluid levels. There is small amount of free fluid in the abdomen and p kamille. There are a few sigmoid diverticula. There is a first-degree L4-5 spondylolisthesis. There is degenerative disc space narrowing from L3 to S1. There is no compression fracture. The bony pelvis is intact. There is left hip joint osteoarthri tis. There is Reyes catheter in the urinary bladder. There is 7 cm cystic pelvic mass on the left side of midline that does not appear to be urinary bladder. This could be a large ovarian cyst. IMPRESSION: There is a moderate-sized pneumoperitoneum. There is mild ascites. Small bowel wall thickening and mi ld dilation could relate to edema and mesenteric ischemia. Left lower lobe infiltrate and atelectasis. Cardiomegaly. Left-sided pelvic cystic mass. Exam was discussed with the emergency room staff at 2:45 AM.
[2021-10-01] MEDS ORDERED: SODIUM BICARB 8.4% 50 ML SYR (1 MEQ/ML) IV STA (02:53)
[2021-10-01] MEDS ORDERED: IPRATROPIUM-ALBUTEROL 3 ML NEB INHALATION PRN (03:24)
[2021-10-01] MEDS ORDERED: NALOXONE 0.4 MG/ML 1 ML VIAL IV PRN (03:24)
[2021-10-01] MEDS ORDERED: DEXTROSE 5%-0.45% NACL 1,000 ML IV SCH (03:30)
[2021-10-01] MEDS ORDERED: SODIUM CHLORIDE 0.9% 500 ML 500 ML IV STA (03:35)
[2021-10-01 05:32] LABS: Glucose,Whole Blood 109 mg/dL (75-99)
[2021-10-01 06:14] LABS: ABG HCO3 19 mmol/L (21-25); ABG Oxygen Saturation 96.3 % (94-97); ABG PCO2 35 mmHg (35-45); ABG PH 7.34 (7.35-7.45); ABG PO2 83 mmHg (83-108); ABG TCO2 20 mmol/L (19-24); Allen Test Performed? Yes
[2021-10-01] MEDS: NOREPINEPHRINE 32 MG in SODIUM CHLORIDE 0.9% 218 ML IV ONE ×2 (07:20→21:42)
--- NOTE | 2021-10-01 08:17 | P.CNPUL ---
History of Present Illness Consult date: 10/01/21 History of present illness: 8-year-old female patient who presented to the burst department because of an abdominal pain. The patient was found to have free air in the abdomen. A CAT scan of the abdomen was done and the patient was found to have pneumoperitoneum. The patient denied having any fever at home. She did have abdominal pain and nausea. His abdominal pain was of a sudden onset and it occurs at home. No history of any peptic ulcer disease. No history of any inflammatory bowel disease. She is known to have paroxysmal atrial fibrillation and she has been involved in a previous TIA and the patient was treated anticoagulation with Eliquis. Also, the patient is a recipient of a kidney transplant and the patient has history of FSGS and the patient has been maintained on a combination of immunosuppressive agents including CellCept, cephalosporin and prednisone. Note that her current transplant kidney is the second chest elevation of the patient had. This was given to her back in 2017 at [facility]. During this current admission, the patient had no fevers or chills. She had severe abdominal pain. CAT scan of the abdomen was done in the emergency department and the patient was found to have evidence of moderate size pneumop eritoneum. There was moderate ascites. There was evidence of small bowel wall thickening and mild dilatation and edema of the mesentery consider mesenteric ischemia. She also had a some left lower lobe atelectatic change and cardiomegaly. There was a left-sided pelvic cystic mass. Neurosurgery was consulted and the patient will be taken to the operating room. In the emergency, the patient was intubated and placed on a mechanical ventilator. She was given 3-1/2 L of normal saline. She was started on pressors and the patient is on norepinephrine infusion chronic at 0.5 mcg/kg per minute. Lactic acid level was as high as 12 and currently has improved down to 3.9. Her white cell count is currently at 6.8 with a hemoglobin of 12.7 and platelet count of 245. She is currently on a mechanical ventilator on assist control mode at the rate of 26, tidal volume of 300 with an FiO2 of 40% and a PEEP of 5. The pH is 7.34 with a pCO2 of 35 and pO2 is at 83. The patient was given IV Unasyn in the emergency department. General surgeries on the case. The patient will be taken to the operating room. Electrolyte are normal. Reyes catheter has been inserted. She has chronic kidney disease in the creatinine is at 1.8. UA is also abnormal and shows + protein, there are several WBCs consistent for an underlying infection. The current cardiac rhythm is atrial fibrillation with a controlled rate and the patient has frequent Review of Systems ROS unobtainable: due to endotracheal tube, due to mental status Past Medical History Past Medical History: Cancer, Hyperlipidemia, Hypertension, Renal Disease Additional Past Medical History / Comment(s): BILATERAL FSGS (FOCAL SEGMENTAL GLOMERULOSCLEROSIS), RIGHT KIDNEY TRANSPLANT (MAY 2007)., LOBULAR CARCINOMA INSITU WITH SURGERY., BACK PAIN- USES CANE,. OSTEOPOROSIS. History of Any Multi-Drug Resistant Organisms: None Reported Past Surgical History: Breast Surgery, Orthopedic Surgery, Tonsillectomy, Tubal Ligation Additional Past Surgical History / Comment(s): LEFT KNEE SURGERY, RIGHT KIDNEY TRANSPLANT MAY 2007. EGD WITH DILATION Past Anesthesia/Blood Transfusion Reactions: Motion Sickness, Postoperative Nausea & Vomiting (PONV) Smoking Status: Never smoker - Past Family History Mother Family Medical History: No Reported History Brother(s) Family Medical History: Cancer Additional Family Medical History / Comment(s): COLON CANCER Medications and Allergies Home Medications Medication Instructions Recorded Confirmed Type Atenolol 100 mg PO DAILY 12/13/14 02/19/21 History NIFEdipine [Nifedical Xl] 60 mg PO DAILY 12/13/14 02/19/21 History cloNIDine HCL [Clonidine HCl] 0.1 mg PO BID 12/13/14 02/19/21 History Atorvastatin [Lipitor] 20 mg PO HS 05/14/16 02/19/21 History Magnesium 500 mg PO DAILY 05/14/16 02/19/21 History predniSONE 5 mg PO DAILY 05/14/16 02/19/21 History Furosemide [Lasix] 20 mg PO DAILY 10/22/18 02/19/[address] [Myfortic] 720 mg PO BID 10/22/18 02/19/21 History Potassium 99 mg PO DAILY 10/22/18 02/19/21 History cycloSPORINE [cycloSPORINE (GEQ 50 mg PO BID 10/22/18 02/19/21 History for SandIMMUNE)] lisinopriL 60 mg PO HS 10/22/18 02/19/21 History Pantoprazole [Protonix] 40 mg PO DAILY 04/20/20 02/19/21 History Cholecalciferol [Vitamin D3 (25 25 mcg PO DAILY 10/25/20 02/19/21 History Mcg = 1000 Iu)] Apixaban [Eliquis] 5 mg PO BID 02/19/21 02/19/21 History Allergies Allergy/AdvReac Type Severity Reaction Status Date / Time No Known Allergies Allergy Verified 02/19/21 08:23 Physical Exam Vitals: Vital Signs Temp Pulse Resp BP Pulse Ox 10/01/21 07:10 69 30 H 83/48 96 10/01/21 07:00 66 32 H 111/45 95 10/01/21 06:50 73 40 H 111/45 96 10/01/21 06:40 70 38 H 116/73 96 10/01/21 06:30 71 34 H 117/57 96 10/01/21 06:20 70 34 H 117/57 95 10/01/21 06:10 72 35 H 108/52 95 10/01/21 06:00 75 33 H 105/64 95 10/01/21 05:50 75 29 H 105/64 95 10/01/21 05:40 96.9 F L 78 31 H 113/35 94 L 10/01/21 05:01 79 24 101/49 97 10/01/21 04:00 80 24 121/52 98 10/01/21 03:20 74 24 108/49 96 10/01/21 03:00 74 24 92/31 96 10/01/21 02:45 73 24 83/35 97 10/01/21 02:32 72 24 70/23 97 10/01/21 02:15 74 24 69/25 97 10/01/21 02:00 74 24 67/37 97 10/01/21 01:48 74 78/28 10/01/21 01:41 68 20 70/39 95 10/01/21 01:25 69/28 10/01/21 01:20 74 20 47/37 95 10/01/21 01:15 78 20 107/71 94 L 10/01/21 01:12 83 54/34 09/30/21 23:30 98 F 84 28 H 137/108 94 L Intake and Output 09/30/21 10/01/21 10/01/21 22:59 06:59 14:59 Intake Total 329.000 82.144 Output Total 155 10 Balance 174.000 72.144 Intake: IV 75 75 Dextrose 5%-0.45% NaCl 1, 75 75 000 ml @ 75 mls/hr IV . [id number] [facility] Rx#:[id number] Intake, IV Titration 254.000 7.144 Amount Norepinephrine 4 mg In 254.000 Sodium Chloride 0.9% 250 ml @ 0.05 MCG/KG/MIN 10. 801 mls/hr IV .[id number] [facility] Rx#:[id number] propofoL 1,000 mg In 7.144 Empty Bag 1 bag @ Titrate IV .Q0M [facility] Rx#: [id number] Output: Urine 155 10 Uretheral (Reyes) 100 Other: Voiding Method Indwelling Catheter Weight 56.699 kg The patient is currently sedated and the patient is currently on propofol running at 25 mcg/kg per minute. She is single has a mechanical ventilator. She is intubated. Orogastric and orotracheal tube are both in place. Output from the OG is minimal at this point in time. Head exam was generally normal. There was no scleral icterus or corneal arcus. Mucous membranes were moist. Neck was supple and without jugular venous distension, thyromegaly, or carotid bruits. Carotids were easily palpable bilaterally. There was no adenopathy. The patient has a right IJ triple-lumen catheter in place. Cardiac exam revealed the PMI to be normally situated and sized. The rhythm is irregular consistent with atrial fibrillation and the patient has extrasystoles that were were noted during several minutes of auscultation. The first and second heart sounds were normal and physiologic splitting of the second heart sound was noted. There were no murmurs, rubs, clicks, or gallops. Lungs were clear to auscultation and percussion, and with normal diaphragmatic excursion. No wheezes or rales were noted. Examination of the abdomen shows some mild abdominal distention. Mild tenderness. No rebound tenderness or guarding. Bowel sounds are hypoactive. Organs cannot be palpated. The patient has scars of previous kidney chest mentation over the anterior abdominal wall. Examination of the extremities revealed easily palpable radial, femoral and pedal pulses. There was no cyanosis, clubbing or edema. Examination of the skin revealed no evidence of significant rashes, suspicious appearing nevi or other concerning lesions. Neurologically the patient sedated for now. Results - Laboratory Findings CBC and BMP: 09/30/21 23:56 09/30/21 23:56 ABG WBC 6.8 k/uL (3.8-10.6) 09/30/21 23:56 RBC 4.23 m/uL (3.80-5.40) 09/30/21 23:56 Hgb 12.5 gm/dL (11.4-16.0) 09/30/21 23:56 Hct 41.1 % (34.0-46.0) 09/30/21 23:56 MCV 97.2 fL (80.0-100.0) 09/30/21 23:56 MCH 29.5 pg (25.0-35.0) 09/30/21 23:56 MCHC 30.3 g/dL (31.0-37.0) L 09/30/21 23:56 RDW 13.8 % (11.5-15.5) 09/30/21 23:56 Plt Count 245 k/uL (150-450) 09/30/21 23:56 MPV 9.6 09/30/21 23:56 Neutrophils % (Manual) 39 % 09/30/21 23:56 Band Neuts % (Manual) 46 % 09/30/21 23:56 Lymphocytes % (Manual) 8 % 09/30/21 23:56 Monocytes % (Manual) 3 % 09/30/21 23:56 Metamyelocytes % 5 % 09/30/21 23:56 Myelocytes % 1 % 09/30/21 23:56 Neutrophils # (Manual) 5.70 k/uL (1.3-7.7) 09/30/21 23:56 Lymphocytes # (Manual) 0.54 k/uL (1.0-4.8) L 09/30/21 23:56 Monocytes # (Manual) 0.20 k/uL (0-1.0) 09/30/21 23:56 Metamyelocytes # (Man) 0.34 k/uL (0) H 09/30/21 23:56 Myelocytes # (Manual) 0.07 k/uL (0) H 09/30/21 23:56 Nucleated RBCs 0 /100 WBC (0-0) 09/30/21 23:56 Manual Slide Review Performed 09/30/21 23:56 Large Platelets Present 09/30/21 23:56 Hypochromasia Moderate 09/30/21 23:56 Poikilocytosis (manual Present 09/30/21 23:56 Anisocytosis (manual) Present 09/30/21 23:56 Fragmented RBCs Present 09/30/21 23:56 Sample Site lbrac 10/01/21 06:10 ABG pH 7.34 (7.35-7.45) L 10/01/21 06:10 ABG pCO2 35 mmHg (35-45) 10/01/21 06:10 ABG pO2 83 mmHg (83-108) 10/01/21 06:10 ABG HCO3 19 mmol/L (21-25) L 10/01/21 06:10 ABG Total CO2 20 mmol/L (19-24) 10/01/21 06:10 ABG O2 Saturation 96.3 % (94-97) 10/01/21 06:10 ABG Base Excess -7.0 mmol/L 10/01/21 06:10 Jakob Test Yes 10/01/21 06:10 FiO2 40 % 10/01/21 06:10 Sodium 137 mmol/L (137-145) 09/30/21 23:56 Potassium 4.1 mmol/L (3.5-5.1) 09/30/21 23:56 Chloride 102 mmol/L (98-107) 09/30/21 23:56 Carbon Dioxide 10 mmol/L (22-30) L 09/30/21 23:56 Anion Gap 25 mmol/L 09/30/21 23:56 BUN 28 mg/dL (7-17) H 09/30/21 23:56 Creatinine 1.85 mg/dL (0.52-1.04) H 09/30/21 23:56 Est GFR (CKD-EPI)AfAm 29 (>60 ml/min/1.73 sqM) 09/30/21 23:56 Est GFR (CKD-EPI)NonAf 25 (>60 ml/min/1.73 sqM) 09/30/21 23:56 Glucose 107 mg/dL (74-99) H 09/30/21 23:56 POC Glucose (mg/dL) 109 mg/dL (75-99) H 10/01/21 05:30 POC Glu [employer] Amaris Brandt 10/01/21 05:30 Lactic Ac Sepsis Rflx Y 10/01/21 03:54 Plasma Lactic Acid Khris 3.9 mmol/L (0.7-2.0) H* 10/01/21 06:12 Calcium 9.4 mg/dL (8.4-10.2) 09/30/21 23:56 Phosphorus 7.4 mg/dL (2.5-4.5) H 09/30/21 23:56 Magnesium 2.7 mg/dL (1.6-2.3) H 09/30/21 23:56 Total Bilirubin 1.5 mg/dL (0.2-1.3) H 09/30/21 23:56 AST 45 U/L (14-36) H 09/30/21 23:56 ALT 25 U/L (4-34) 09/30/21 23:56 Alkaline Phosphatase 43 U/L (38-126) 09/30/21 23:56 Total Protein 6.4 g/dL (6.3-8.2) 09/30/21 23:56 Albumin 3.8 g/dL (3.5-5.0) 09/30/21 23:56 Amylase 148 U/L (30-110) H 09/30/21 23:56 Lipase 63 U/L (23-300) 09/30/21 23:56 Urine Color Yellow 09/30/21 23:56 Urine Appearance Clear (Clear) 09/30/21 23:56 Urine pH 6.0 (5.0-8.0) 09/30/21 23:56 Ur Specific Ulmer 1.010 (1.001-1.035) 09/30/21 23:56 Urine Protein 2+ (Negative) H 09/30/21 23:56 Urine Glucose (UA) Negative (Negative) 09/30/21 23:56 Urine Ketones Negative (Negative) 09/30/21 23:56 Urine Blood Trace (Negative) H 09/30/21 23:56 Urine Nitrite Negative (Negative) 09/30/21 23:56 Urine Bilirubin Negative (Negative) 09/30/21 23:56 Urine Urobilinogen <2.0 mg/dL (<2.0) 09/30/21 23:56 Ur Leukocyte Esterase Moderate (Negative) H 09/30/21 23:56 Urine RBC 5 /hpf (0-5) 09/30/21 23:56 Urine WBC 63 /hpf (0-5) H 09/30/21 23:56 Urine WBC Clumps Occasional /hpf (None) H 09/30/21 23:56 Ur Squamous Epith Cells <1 /hpf (0-4) 09/30/21 23:56 Amorphous Sediment Occasional /hpf (None) H 09/30/21 23:56 Urine Bacteria Rare /hpf (None) H 09/30/21 23:56 Hyaline Casts 3 /lpf (0-2) H 09/30/21 23:56 Urine Mucus Rare /hpf (None) H 09/30/21 23:56 Abnormal lab findings: Abnormal Labs 09/30/21 09/30/21 09/30/21 23:56 23:56 23:56 MCHC 30.3 L Lymphocytes # (Manual) 0.54 L Metamyelocytes # (Man) 0.34 H Myelocytes # (Manual) 0.07 H ABG pH ABG pO2 ABG HCO3 ABG Total CO2 ABG O2 Saturation Carbon Dioxide 10 L BUN 28 H Creatinine 1.85 H Glucose 107 H POC Glucose (mg/dL) Plasma Lactic Acid Khris Phosphorus 7.4 H Magnesium 2.7 H Total Bilirubin 1.5 H AST 45 H Amylase 148 H Urine Protein 2+ H Urine Blood Trace H Ur Leukocyte Esterase Moderate H Urine WBC 63 H Urine WBC Clumps Occasional H Amorphous Sediment Occasional H Urine Bacteria Rare H Hyaline Casts 3 H Urine Mucus Rare H 09/30/21 10/01/21 10/01/21 23:56 01:49 03:28 MCHC Lymphocytes # (Manual) Metamyelocytes # (Man) Myelocytes # (Manual) ABG pH 7.23 L ABG pO2 >400 H ABG HCO3 15 L ABG Total CO2 16 L ABG O2 Saturation 100.0 H Carbon Dioxide BUN Creatinine Glucose POC Glucose (mg/dL) Plasma Lactic Acid Khris 12.6 H* 4.0 H* Phosphorus Magnesium Total Bilirubin AST Amylase Urine Protein Urine Blood Ur Leukocyte Esterase Urine WBC Urine WBC Clumps Amorphous Sediment Urine Bacteria Hyaline Casts Urine Mucus 10/01/21 10/01/21 10/01/21 05:30 06:10 06:12 MCHC Lymphocytes # (Manual) Metamyelocytes # (Man) Myelocytes # (Manual) ABG pH 7.34 L ABG pO2 ABG HCO3 19 L ABG Total CO2 ABG O2 Saturation Carbon Dioxide BUN Creatinine Glucose POC Glucose (mg/dL) 109 H Plasma Lactic Acid Khris 3.9 H* Phosphorus Magnesium Total Bilirubin AST Amylase Urine Protein Urine Blood Ur Leukocyte Esterase Urine WBC Urine WBC Clumps Amorphous Sediment Urine Bacteria Hyaline Casts Urine Mucus - Diagnostic Findings Chest x-ray: image reviewed Assessment and Plan Plan: 1 acute pneumoperitoneum. Consider underlying ischemic bowel. The patient had A Onset Acute Abdominal Pain along with Nausea. The Patient Came into the Emergency Department, Intubated on Mechanical Ventilator. CAT Scan of the Abdomen Was Consistent with an Acute Abdomen. The Patient Will Be Taken to the Operating Room. She Had Severe Lactic Acidosis and the Patient Was Resuscitated with Fluids and Pressors and Antibiotics. Consider Possibility of an Mesenteric Ischemia Had chronic atrial fibrillation. Nevertheless, the patient was on anticoagulants with Eliquis 2 acute hypoxic respiratory failure secondary to above, currently intubated on a mechanical ventilator. 3 acute hypotension, probably related to a septic shock in the setting of an acute abdomen and pneumoperitoneum. The patient is currently on a combination of fluids and pressors and antibiotics. Pressors are running in the form of norepinephrine infusion at 0.5 mg/kg per minute. 4 acute lactic acidosis, improving 5 history of kidney transplantation maintained on immunosuppressive agents including a combination of CellCept, cyclosporine and prednisone 6 chronic kidney disease and the patient's creatinine currently is at 1.8. 7 history of FSGS requiring transfer patient 2 in the most recent chest elevation was done in 2006 8 history of chronic atrial fibrillation with a previous history of TIA, maintained on long-term and to coagulation with Eliquis 9 history of fibrocystic breast disease along with lobular carcinoma in situ of the breast followed up by general surgery 10 history of hypertension 11 history of hyperlipidemia 12 history of chronic back pain along with osteoporosis and the patient walks around with the help of a cane DANNY Continue ventilator support. No vent changes will be done for today. IV fluids with D5 half normal saline at the rate of 75 mL's an hour and continue pressors for now Cover The patient with a combination of Zosyn and Flagyl Stress dose hydrocortisone as the patient has been on prednisone on long-term basis and the patient will be given hydrocortisone 100 mg every 8 hours General surgery consultation and the patient will be taken to the operating room for exploratory laparotomy IV proton Already coagulation for now and apply compression devices to the lower extremity is bilaterally We'll insert an arterial line catheter We'll obtain an echocardiogram. We'll continue with pressors for now Urine cultures and blood cultures will be sent Nephrology regarding her kidney transplantation Condition is critical we'll continue to follow make further recommendations based on her progress.
[2021-10-01] MEDS ORDERED: DEXTROSE 5%-0.9% NACL 1,000 ML IV SCH (09:15)
--- NOTE | 2021-10-01 09:21 | P.GSCN ---
History of Present Illness Consult date: 10/01/21 Reason for Consult: Perforated viscus History of present illness: The X-1-fljd-old female who presented to emergency room with acute onset abdo ekta pain. Patient's workup found have evidence of free air on CAT scan. Patient has evidence of possible small bowel perforation with some pneumatosis ascites and thickening of small bowel. Patient's lactic acid was 12 in the emergency room. She was hypotensive. Patient was intubated in the emergency room she is receive fluid resuscitation. She will be taken the operating room this morning for exploratory laparotomy. Past Medical History Past Medical History: Cancer, Hyperlipidemia, Hypertension, Renal Disease Additional Past Medical History / Comment(s): BILATERAL FSGS (FOCAL SEGMENTAL GLOMERULOSCLEROSIS), RIGHT KIDNEY TRANSPLANT (MAY 2007)., LOBULAR CARCINOMA INSITU WITH SURGERY., BACK PAIN- USES CANE,. OSTEOPOROSIS. History of Any Multi-Drug Resistant Organisms: None Reported Past Surgical History: Breast Surgery, Orthopedic Surgery, Tonsillectomy, Tubal Ligation Additional Past Surgical History / Comment(s): LEFT KNEE SURGERY, RIGHT KIDNEY TRANSPLANT MAY 2007. EGD WITH DILATION Past Anesthesia/Blood Transfusion Reactions: Motion Sickness, Postoperative Nausea & Vomiting (PONV) Smoking Status: Never smoker - Past Family History Mother Family Medical History: No Reported History Brother(s) Family Medical History: Cancer Additional Family Medical History / Comment(s): COLON CANCER Medications and Allergies Home Medications Medication Instructions Recorded Confirmed Type Atenolol 100 mg PO DAILY 12/13/14 02/19/21 History NIFEdipine [Nifedical Xl] 60 mg PO DAILY 12/13/14 02/19/21 History cloNIDine HCL [Clonidine HCl] 0.1 mg PO BID 12/13/14 02/19/21 History Atorvastatin [Lipitor] 20 mg PO HS 05/14/16 02/19/21 History Magnesium 500 mg PO DAILY 05/14/16 02/19/21 History predniSONE 5 mg PO DAILY 05/14/16 02/19/21 History Furosemide [Lasix] 20 mg PO DAILY 10/22/18 02/19/[address] [Myfortic] 720 mg PO BID 10/22/18 02/19/21 History Potassium 99 mg PO DAILY 10/22/18 02/19/21 History cycloSPORINE [cycloSPORINE (GEQ 50 mg PO BID 10/22/18 02/19/21 History for SandIMMUNE)] lisinopriL 60 mg PO HS 10/22/18 02/19/21 History Pantoprazole [Protonix] 40 mg PO DAILY 04/20/20 02/19/21 History Cholecalciferol [Vitamin D3 (25 25 mcg PO DAILY 10/25/20 02/19/21 History Mcg = 1000 Iu)] Apixaban [Eliquis] 5 mg PO BID 02/19/21 02/19/21 History Allergies Allergy/AdvReac Type Severity Reaction Status Date / Time No Known Allergies Allergy Verified 02/19/21 08:23 Surgical - Exam Vital Signs Temp Pulse Resp BP Pulse Ox 98 F 84 28 H 137/108 94 L 09/30/21 23:30 09/30/21 23:30 09/30/21 23:30 09/30/21 23:30 09/30/21 23:30 - General Intubated - Eyes PERRL - Abdomen Soft, distended Results - Labs 09/30/21 23:56 09/30/21 23:56 Abnormal Lab Results - Last 24 Hours (Table) 09/30/21 09/30/21 09/30/21 Range/Units 23:56 23:56 23:56 MCHC 30.3 L (31.0-37.0) g/dL Lymphocytes # (Manual) 0.54 L (1.0-4.8) k/uL Metamyelocytes # (Man) 0.34 H (0) k/uL Myelocytes # (Manual) 0.07 H (0) k/uL ABG pH (7.35-7.45) ABG pO2 (83-108) mmHg ABG HCO3 (21-25) mmol/L ABG Total CO2 (19-24) mmol/L ABG O2 Saturation (94-97) % Carbon Dioxide 10 L (22-30) mmol/L BUN 28 H (7-17) mg/dL Creatinine 1.85 H (0.52-1.04) mg/dL Glucose 107 H (74-99) mg/dL POC Glucose (mg/dL) (75-99) mg/dL Plasma Lactic Acid Khris (0.7-2.0) mmol/L Phosphorus 7.4 H (2.5-4.5) mg/dL Magnesium 2.7 H (1.6-2.3) mg/dL Total Bilirubin 1.5 H (0.2-1.3) mg/dL AST 45 H (14-36) U/L Amylase 148 H (30-110) U/L Urine Protein 2+ H (Negative) Urine Blood Trace H (Negative) Ur Leukocyte Esterase Moderate H (Negative) Urine WBC 63 H (0-5) /hpf Urine WBC Clumps Occasional H (None) /hpf Amorphous Sediment Occasional H (None) /hpf Urine Bacteria Rare H (None) /hpf Hyaline Casts 3 H (0-2) /lpf Urine Mucus Rare H (None) /hpf Coronavirus (PCR) (Not Detectd) 09/30/21 10/01/21 10/01/21 Range/Units 23:56 01:49 03:28 MCHC (31.0-37.0) g/dL Lymphocytes # (Manual) (1.0-4.8) k/uL Metamyelocytes # (Man) (0) k/uL Myelocytes # (Manual) (0) k/uL ABG pH 7.23 L (7.35-7.45) ABG pO2 >400 H (83-108) mmHg ABG HCO3 15 L (21-25) mmol/L ABG Total CO2 16 L (19-24) mmol/L ABG O2 Saturation 100.0 H (94-97) % Carbon Dioxide (22-30) mmol/L BUN (7-17) mg/dL Creatinine (0.52-1.04) mg/dL Glucose (74-99) mg/dL POC Glucose (mg/dL) (75-99) mg/dL Plasma Lactic Acid Khris 12.6 H* 4.0 H* (0.7-2.0) mmol/L Phosphorus (2.5-4.5) mg/dL Magnesium (1.6-2.3) mg/dL Total Bilirubin (0.2-1.3) mg/dL AST (14-36) U/L Amylase (30-110) U/L Urine Protein (Negative) Urine Blood (Negative) Ur Leukocyte Esterase (Negative) Urine WBC (0-5) /hpf Urine WBC Clumps (None) /hpf Amorphous Sediment (None) /hpf Urine Bacteria (None) /hpf Hyaline Casts (0-2) /lpf Urine Mucus (None) /hpf Coronavirus (PCR) (Not Detectd) 10/01/21 10/01/21 10/01/21 Range/Units 05:30 06:10 06:12 MCHC (31.0-37.0) g/dL Lymphocytes # (Manual) (1.0-4.8) k/uL Metamyelocytes # (Man) (0) k/uL Myelocytes # (Manual) (0) k/uL ABG pH 7.34 L (7.35-7.45) ABG pO2 (83-108) mmHg ABG HCO3 19 L (21-25) mmol/L ABG Total CO2 (19-24) mmol/L ABG O2 Saturation (94-97) % Carbon Dioxide (22-30) mmol/L BUN (7-17) mg/dL Creatinine (0.52-1.04) mg/dL Glucose (74-99) mg/dL POC Glucose (mg/dL) 109 H (75-99) mg/dL Plasma Lactic Acid Khris 3.9 H* (0.7-2.0) mmol/L Phosphorus (2.5-4.5) mg/dL Magnesium (1.6-2.3) mg/dL Total Bilirubin (0.2-1.3) mg/dL AST (14-36) U/L Amylase (30-110) U/L Urine Protein (Negative) Urine Blood (Negative) Ur Leukocyte Esterase (Negative) Urine WBC (0-5) /hpf Urine WBC Clumps (None) /hpf Amorphous Sediment (None) /hpf Urine Bacteria (None) /hpf Hyaline Casts (0-2) /lpf Urine Mucus (None) /hpf Coronavirus (PCR) (Not Detectd) 10/01/21 Range/Units 08:20 MCHC (31.0-37.0) g/dL Lymphocytes # (Manual) (1.0-4.8) k/uL Metamyelocytes # (Man) (0) k/uL Myelocytes # (Manual) (0) k/uL ABG pH (7.35-7.45) ABG pO2 (83-108) mmHg ABG HCO3 (21-25) mmol/L ABG Total CO2 (19-24) mmol/L ABG O2 Saturation (94-97) % Carbon Dioxide (22-30) mmol/L BUN (7-17) mg/dL Creatinine (0.52-1.04) mg/dL Glucose (74-99) mg/dL POC Glucose (mg/dL) (75-99) mg/dL Plasma Lactic Acid Khris (0.7-2.0) mmol/L Phosphorus (2.5-4.5) mg/dL Magnesium (1.6-2.3) mg/dL Total Bilirubin (0.2-1.3) mg/dL AST (14-36) U/L Amylase (30-110) U/L Urine Protein (Negative) Urine Blood (Negative) Ur Leukocyte Esterase (Negative) Urine WBC (0-5) /hpf Urine WBC Clumps (None) /hpf Amorphous Sediment (None) /hpf Urine Bacteria (None) /hpf Hyaline Casts (0-2) /lpf Urine Mucus (None) /hpf Coronavirus (PCR) Detected A (Not Detectd) Diabetes panel 09/30/21 Range/Units 23:56 Sodium 137 (137-145) mmol/L Potassium 4.1 (3.5-5.1) mmol/L Chloride 102 (98-107) mmol/L Carbon Dioxide 10 L (22-30) mmol/L BUN 28 H (7-17) mg/dL Creatinine 1.85 H (0.52-1.04) mg/dL Glucose 107 H (74-99) mg/dL Calcium 9.4 (8.4-10.2) mg/dL AST 45 H (14-36) U/L ALT 25 (4-34) U/L Alkaline Phosphatase 43 (38-126) U/L Total Protein 6.4 (6.3-8.2) g/dL Albumin 3.8 (3.5-5.0) g/dL Calcium panel 09/30/21 Range/Units 23:56 Calcium 9.4 (8.4-10.2) mg/dL Phosphorus 7.4 H (2.5-4.5) mg/dL Albumin 3.8 (3.5-5.0) g/dL Pituitary panel 09/30/21 Range/Units 23:56 Sodium 137 (137-145) mmol/L Potassium 4.1 (3.5-5.1) mmol/L Chloride 102 (98-107) mmol/L Carbon Dioxide 10 L (22-30) mmol/L BUN 28 H (7-17) mg/dL Creatinine 1.85 H (0.52-1.04) mg/dL Glucose 107 H (74-99) mg/dL Calcium 9.4 (8.4-10.2) mg/dL Adrenal panel 09/30/21 Range/Units 23:56 Sodium 137 (137-145) mmol/L Potassium 4.1 (3.5-5.1) mmol/L Chloride 102 (98-107) mmol/L Carbon Dioxide 10 L (22-30) mmol/L BUN 28 H (7-17) mg/dL Creatinine 1.85 H (0.52-1.04) mg/dL Glucose 107 H (74-99) mg/dL Calcium 9.4 (8.4-10.2) mg/dL Total Bilirubin 1.5 H (0.2-1.3) mg/dL AST 45 H (14-36) U/L ALT 25 (4-34) U/L Alkaline Phosphatase 43 (38-126) U/L Total Protein 6.4 (6.3-8.2) g/dL Albumin 3.8 (3.5-5.0) g/dL Assessment and Plan Assessment: Acute abdominal pain with bowel perforation. Patient has history of age for ablation. Is unsure if this is due to ischemic bowel. Patient will undergo exploratory laparotomy this morning..
--- NOTE | 2021-10-01 09:34 | P.PCN ---
Date of Procedure: 10/01/21 Preoperative Diagnosis: acute abdomen, sepsis Postoperative Diagnosis: acute abdomen, sepsis Procedure(s) Performed: arterial line Anesthesia: local Surgeon: Eladia Nino Estimated Blood Loss (ml): 0 Pathology: none sent Condition: critical Disposition: ICU Operative Findings: right Arterial Line Time Out Performed: Yes Date of Procedure: 10/01/21 Time of Procedure: 09:00am Location of Patient: OR Preparation: Sterile Prep, Sterile Dressing Arterial Line Location: Radial Ultrasound Used: none Purpose - Visualization and Identification of Vasculature: Yes Needle Guage: 20 Image Stored and Saved: none Narrative: right radial line placement per sterile protocol utilized.
--- NOTE | 2021-10-01 09:38 | P.NPCON ---
History of Present Illness - Reason for Consult acute renal failure - History of Present Illness Reason for consultation: Acute kidney injury and renal transplant management History of present illness: Patient is a 81-year-old female seen in renal consultation for acute kidney injury and renal transplant management. Patient presented to the hospital by the EMS due to abdominal pain as well as nausea and vomiting. Patient was noted to be hypotensive with blood pressure in the systolic 60s on admission. She has received 3-1/2 L of normal saline bolus and is currently maintained on half normal saline running at 75 mL an hour. Patient's CT of the abdomen and pelvis showed no hydronephrosis. Right-sided transplant kidney was noted. CAT scan showed pneumoperitoneum. She is scheduled to undergo exploratory laparotomy today. Currently on antibiotics. Urine output has been about 10 mL an hour for the last 2-3 hours. Patient became more unresponsive last night and was subsequently intubated. Patient has history of failed kidney transplant and received a second kidney transplant in [facility]. She is maintained on prednisone, cyclosporine and Myfortic. Currently i mmunosuppression medications are held as she is nothing by mouth. Patient's baseline creatinine is near 1 and was elevated at 1.85 on admission yesterday. She was noted to be acidotic with a bicarb level of 10. Labs from today are pending. Vital signs - on Levophed. HEENT: Intubated. LUNGS: Breath sounds decreased. HEART: Rate and Rhythm are regular. ABDOMEN: No gross distention noted. EXTREMITITES: No edema. Past Medical History Past Medical History: Cancer, Hyperlipidemia, Hypertension, Renal Disease Additional Past Medical History / Comment(s): BILATERAL FSGS (FOCAL SEGMENTAL GLOMERULOSCLEROSIS), RIGHT KIDNEY TRANSPLANT (MAY 2007)., LOBULAR CARCINOMA INSITU WITH SURGERY., BACK PAIN- USES CANE,. OSTEOPOROSIS. History of Any Multi-Drug Resistant Organisms: None Reported Past Surgical History: Breast Surgery, Orthopedic Surgery, Tonsillectomy, Tubal Ligation Additional Past Surgical History / Comment(s): LEFT KNEE SURGERY, RIGHT KIDNEY TRANSPLANT MAY 2007. EGD WITH DILATION Past Anesthesia/Blood Transfusion Reactions: Motion Sickness, Postoperative Nausea & Vomiting (PONV) Smoking Status: Never smoker - Past Family History Mother Family Medical History: No Reported History Brother(s) Family Medical History: Cancer Additional Family Medical History / Comment(s): COLON CANCER Medications and Allergies Home Medications Medication Instructions Recorded Confirmed Type Atenolol 100 mg PO DAILY 12/13/14 02/19/21 History NIFEdipine [Nifedical Xl] 60 mg PO DAILY 12/13/14 02/19/21 History cloNIDine HCL [Clonidine HCl] 0.1 mg PO BID 12/13/14 02/19/21 History Atorvastatin [Lipitor] 20 mg PO HS 05/14/16 02/19/21 History Magnesium 500 mg PO DAILY 05/14/16 02/19/21 History predniSONE 5 mg PO DAILY 05/14/16 02/19/21 History Furosemide [Lasix] 20 mg PO DAILY 10/22/18 02/19/[address] [Myfortic] 720 mg PO BID 10/22/18 02/19/21 History Potassium 99 mg PO DAILY 10/22/18 02/19/21 History cycloSPORINE [cycloSPORINE (GEQ 50 mg PO BID 10/22/18 02/19/21 History for SandIMMUNE)] lisinopriL 60 mg PO HS 10/22/18 02/19/21 History Pantoprazole [Protonix] 40 mg PO DAILY 04/20/20 02/19/21 History Cholecalciferol [Vitamin D3 (25 25 mcg PO DAILY 10/25/20 02/19/21 History Mcg = 1000 Iu)] Apixaban [Eliquis] 5 mg PO BID 02/19/21 02/19/21 History Allergies Allergy/AdvReac Type Severity Reaction Status Date / Time No Known Allergies Allergy Verified 02/19/21 08:23 Physical Exam Vitals: Vital Signs Temp Pulse Resp BP Pulse Ox 10/01/21 09:10 74 45 H 104/84 96 10/01/21 09:00 72 40 H 108/54 95 10/01/21 08:50 70 43 H 108/54 96 10/01/21 08:40 72 31 H 124/74 95 10/01/21 08:30 75 40 H 113/81 96 10/01/21 08:20 72 30 H 113/81 98 10/01/21 08:10 79 29 H 109/71 96 10/01/21 08:00 98.4 F 71 35 H 133/66 97 10/01/21 07:50 75 39 H 133/66 97 10/01/21 07:40 71 37 H 121/74 98 10/01/21 07:30 69 37 H 101/53 97 10/01/21 07:10 69 30 H 83/48 96 10/01/21 07:00 66 32 H 111/45 95 10/01/21 06:50 73 40 H 111/45 96 10/01/21 06:40 70 38 H 116/73 96 10/01/21 06:30 71 34 H 117/57 96 10/01/21 06:20 70 34 H 117/57 95 10/01/21 06:10 72 35 H 108/52 95 10/01/21 06:00 75 33 H 105/64 95 10/01/21 05:50 75 29 H 105/64 95 10/01/21 05:40 96.9 F L 78 31 H 113/35 94 L 10/01/21 05:01 79 24 101/49 97 10/01/21 04:00 80 24 121/52 98 10/01/21 03:20 74 24 108/49 96 10/01/21 03:00 74 24 92/31 96 10/01/21 02:45 73 24 83/35 97 10/01/21 02:32 72 24 70/23 97 10/01/21 02:15 74 24 69/25 97 10/01/21 02:00 74 24 67/37 97 10/01/21 01:48 74 78/28 10/01/21 01:41 68 20 70/39 95 10/01/21 01:25 69/28 10/01/21 01:20 74 20 47/37 95 10/01/21 01:15 78 20 107/71 94 L 10/01/21 01:12 83 54/34 09/30/21 23:30 98 F 84 28 H 137/108 94 L Intake and Output 09/30/21 10/01/21 10/01/21 22:59 06:59 14:59 Intake Total 329.000 232.144 Output Total 155 25 Balance 174.000 207.144 Intake: IV 75 225 Dextrose 5%-0.45% NaCl 1, 75 225 000 ml @ 75 mls/hr IV . [id number] [facility] Rx#:[id number] Intake, IV Titration 254.000 7.144 Amount Norepinephrine 4 mg In 254.000 Sodium Chloride 0.9% 250 ml @ 0.05 MCG/KG/MIN 10. 801 mls/hr IV .[id number] Rx#:[id number] propofoL 1,000 mg In 7.144 Empty Bag 1 bag @ Titrate IV .Q0M [facility] Rx#: [id number] Output: Urine 155 25 Uretheral (Reyes) 100 Other: Voiding Method Indwelling Catheter Indwelling Catheter Weight 56.699 kg Results - Lab Results Most recent lab results ABG pH 7.34 (7.35-7.45) L 10/01/21 06:10 ABG pCO2 35 mmHg (35-45) 10/01/21 06:10 ABG pO2 83 mmHg (83-108) 10/01/21 06:10 ABG HCO3 19 mmol/L (21-25) L 10/01/21 06:10 ABG O2 Saturation 96.3 % (94-97) 10/01/21 06:10 Calcium 9.4 mg/dL (8.4-10.2) 09/30/21 23:56 Phosphorus 7.4 mg/dL (2.5-4.5) H 09/30/21 23:56 Magnesium 2.7 mg/dL (1.6-2.3) H 09/30/21 23:56 09/30/21 23:56 09/30/21 23:56 Assessment and Plan Plan: Assessment: 1. 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 Baseline creatinine near 1 and up to 1.85 as of yesterday. No hydronephrosis noted on CAT scan. 2. Status post renal transplant in 2017 at [facility]. 3. Metabolic acidosis secondary to acute kidney injury and lactic acidosis. 4. Pneumoperitoneum scheduled for exploratory laparotomy today. 5. Shock on Levophed. 6. COVID-19 infection. 7. Acute hypoxic respiratory failure. Plan: I will change IV fluids to D5 normal saline to be run at 75 mL an hour. May need to change fluids to bicarb depending on labs today. Scheduled for exploratory laparotomy today. She is currently on IV hydrocortisone. Check cyclosporine level. Continue to monitor renal function and urine output. Thank you for the consultation. I will continue to follow this patient with you during her hospital stay.
[2021-10-01] MEDS ORDERED: ePHEDrine 50 MG/ML 1 ML AMP ONE (09:42)
[2021-10-01] MEDS ORDERED: fentaNYL (PF) 50 MCG/ML 2 ML AMP ONE (09:42)
[2021-10-01] MEDS ORDERED: ROCURONIUM 10 MG/ML (5 ML VIAL) IV ONE (09:42)
[2021-10-01] MEDS ORDERED: WATER FOR INJECTION, STERILE 10 ML VIAL IV ONE (09:42)
[2021-10-01 09:49] LABS: Partial Thromboplastin Time 27.3 sec (22.0-30.0)
[2021-10-01] MEDS: PANTOPRAZOLE 40 MG/10 ML VIAL IV SCH (10:03)
[2021-10-01] MEDS: metroNIDAZOLE-NS PMX 500 MG in SALINE 1 100ML.BAG IVPB SCH ×3 (10:03→22:00)
[2021-10-01] MEDS: HYDROCORTISONE SUCCINATE 100 MG/2 ML VIAL IV SCH ×2 (10:03→15:04)
[2021-10-01 10:10] LABS: Calcium 7.4 mg/dL (8.4-10.2); Potassium 3.1 mmol/L (3.5-5.1)
[2021-10-01] MEDS ORDERED: SODIUM CHLORIDE 0.9% 50 ML with ceFAZolin 2,000 MG IV ONE ×2 (10:16)
[2021-10-01] MEDS ORDERED: LACTATED RINGERS 1,000 ML IV ONE (10:19)
--- NOTE | 2021-10-01 11:01 | ECHOF ---
Referral Reason:new a fib MEASUREMENTS -------- HEIGHT: 154.9 cm WEIGHT: 56.7 kg BP: RVIDd: 2.6 cm (< 3.3) IVSd: 1.3 cm (0.6 - 1.1) LVIDd: 3.2 cm (3.9 - 5.3) LVPWd: 0.9 cm (0.6 - 1.1) IVSs: 1.7 cm LVIDs: 1.8 cm LVPWs: 1.4 cm Ao Diam: 3.3 cm (2.0 - 3.7) AV Cusp: 1.9 cm (1.5 - 2.6) LA Diam: 3.6 cm (2.7 - 3.8) MV EXCURSION: 9.024 mm (> 18.000) MV EF SLOPE: 53 mm/s (70 - 150) EPSS: 0.9 cm MV E Gian: 0.63 m/s MV DecT: 278 ms MV A Gian: 0.71 m/s MV E/A Ratio: 0.89 RAP: 5.00 mmHg RVSP: 19.26 mmHg FINDINGS -------- This was a technically good study. The left ventricular size is normal. There is mild concentric left ventricular hypertrophy. Overa ll left ventricular systolic function is normal with, an EF between 55 - 60 %. The right ventricle is normal in size. The left atrial size is normal. The right atrial size is normal. Aortic valve is trileaflet and is mildly thickened. The mitral valve is normal. Mild mitral regurgitation is present. The tricuspid valve appears structurally normal. Mild tricuspid regurgitation present. Right vent ricular systolic pressure is normal at < 35 mmHg. There is no pulmonic regurgitation present. The aortic root size is normal. IVC Not well visulized. There is a trivial pericardial effusion present. CONCLUSIONS -------- 1. The left ventricular size is normal. 2. There is mild concentric left ventricular hypertrophy. 3. Overall left ventricular systolic function is normal with, an EF between 55 - 60 %. 4. Aortic valve is trileaflet and is mildly thickened. 5. Mild mitral regurgitation is present. 6. Mild tricuspid regurgitation present. 7. There is a trivial pericardial effusion present. AUTOMATION DRIVER: Jannette Davis RDCS
--- NOTE | 2021-10-01 11:39 | P.OP ---
Date of Procedure: 10/01/21 Preoperative Diagnosis: Perforated viscus Postoperative Diagnosis: Perforated sigmoid colon Procedure(s) Performed: Exploratory laparotomy Sigmoid colitis and colostomy Right oophorectomy Anesthesia: TAB Surgeon: Abhilash Price Estimated Blood Loss (ml): 100 Pathology: other (Sigmoid colon, right ovary) Condition: stable Disposition: PACU Description of Procedure: The patient's placed on the operative table in the supine position. Patient had been previously intubated in the ICU. Her abdomen was prepped and draped usual sterile fashion. The antrum was entered through a midline incision. Upon entering the peritoneal cavity there is some feculent purulent fluid. The Bookwalter retractor was placed in the wound. The area was explored. The stomach appeared small normal. The duodenum appeared normal. Small bowel was run. There was no evidence of any perforation of the small bowel. There is no evidence of any inflammatory or ischemic changes small bowel. The patient had a previous kidney transplant the right lower quadrant. The small bowel was adhesions were sharply dissected off this. The small bowel seen entering the cecum. The right ovary appeared to be ischemic. The ovary was mobilized. The fallopian tube was then transected with a Kala clamp and suture-ligated with 0 Vicryl suture. The ovary sent to pathology. The cecum appeared normal. The right colon which was behind the kidney was not visualized well. However there is known to any inflammatory changes in this area. The transverse colon and descending colon appeared normal. In the sigmoid colon there is evidence of inflammatory change. The bowel was palpated and a small perforation was visualized. At this point it was decided to perform a sigmoid colectomy. The colon was mobilized by dividing the white line of Toldt's and then the Fabio was transected approximately distally with the DANISHA stapler. The mesentery the bowel was divided with the Enseal device. The bowel sent to pathology. The left colon was then mobilized by dividing the white line of Toldt. A suitable length of colon was mobilized for colonoscopy. This point the abdomen was irrigated with 4 L of normal saline. The colostomy site was chosen left upper quadrant. The colon was brought up through the colostomy site. And then the fascia closed with looped #1 PDS suture. Skin was closed with akua. The colostomy matured with 3-0 Vicryl suture. Patient was sent back to the ICU in critical condition.
--- NOTE | 2021-10-01 11:51 | P.PN ---
Progress Note - Text Patient not in the room when I went to see her She was already in surgery
--- NOTE | 2021-10-01 12:17 | P.HPIM ---
History of Present Illness H&P Date: 10/01/21 Chief Complaint: Abdominal pain, abdominal perforation on evaluation This is an 81-year-old pleasant female patient of Dr. Arnett, with known history of hypertension, CK D stage III, paroxysmal atrial fibrillation admitted through the emergency room secondary to abdominal pain and found to have pneumoperitoneum. She has significant discomfort, accompanied by nausea, vomit ing, no fever. She presented to emergency room with normal findings, in the CAT scan showing moderate pneumoperitoneum, with small bowel thickening, and mild dilatation edema of the mesenteric considered for mesenteric ischemia there is a left-sided pelvic cystic mass. Chest x-ray shows atelectasis, She is hypotensive, when seen, lactic acid level is high at 12, she was having difficulty of breathing with tachypnea, hence she was preemptively intubated in the emergency room,. She was placed on assist-control, rate of 26, FiO2 40%, PEEP of 5 at the volume of 300. She was sent ICU for stabilization requiring norepinephrine infusion at 0.5 mcg/kg/m for hypotension and septic shock, she received 3.5 L of normal saline for which she is now undergoing exploratory laparotomy. Consult was made with Dr. Price surgeon, and Dr. Nino, critical care ICU physician incidentally, she was tested confirmed Covid positive, on October 01 Review of Systems ROS unobtainable: due to endotracheal tube Past Medical History Past Medical History: Cancer, Hyperlipidemia, Hypertension, Renal Disease Additional Past Medical History / Comment(s): BILATERAL FSGS (FOCAL SEGMENTAL GLOMERULOSCLEROSIS), RIGHT KIDNEY TRANSPLANT (MAY 2007)., LOBULAR CARCINOMA INSITU WITH SURGERY., BACK PAIN- USES CANE,. OSTEOPOROSIS. History of Any Multi-Drug Resistant Organisms: None Reported Past Surgical History: Breast Surgery, Orthopedic Surgery, Tonsillectomy, Tubal Ligation Additional Past Surgical History / Comment(s): LEFT KNEE SURGERY, RIGHT KIDNEY TRANSPLANT MAY 2007. EGD WITH DILATION Past Anesthesia/Blood Transfusion Reactions: Motion Sickness, Postoperative Nausea & Vomiting (PONV) Smoking Status: Never smoker - Past Family History Mother Family Medical History: No Reported History Brother(s) Family Medical History: Cancer Additional Family Medical History / Comment(s): COLON CANCER Medications and Allergies Home Medications Medication Instructions Recorded Confirmed Type Atenolol 50 mg PO BID 12/13/14 10/01/21 History cloNIDine HCL [Clonidine HCl] 0.1 mg PO BID 12/13/14 10/01/21 History predniSONE 5 mg PO DAILY 05/14/16 10/01/21 History Furosemide [Lasix] 20 mg PO DAILY 10/22/18 10/01/21 History lisinopriL 60 mg PO HS 10/22/18 10/01/21 History Pantoprazole [Protonix] 40 mg PO DAILY 04/20/20 10/01/21 History Acetaminophen-Codeine 300-30mg 1 tab PO Q4H PRN 10/01/21 10/01/21 History [Tylenol w/codeine #3] Apixaban [Eliquis] 2.5 mg PO BID 10/01/21 10/01/21 History Rosuvastatin [Crestor] 10 mg PO DAILY 10/01/21 10/01/21 History Allergies Allergy/AdvReac Type Severity Reaction Status Date / Time No Known Allergies Allergy Verified 02/19/21 08:23 Physical Exam Vitals: Vital Signs Temp Pulse Resp BP Pulse Ox 10/01/21 09:10 74 45 H 104/84 96 10/01/21 09:00 72 40 H 108/54 95 10/01/21 08:50 70 43 H 108/54 96 10/01/21 08:40 72 31 H 124/74 95 10/01/21 08:30 75 40 H 113/81 96 10/01/21 08:20 72 30 H 113/81 98 10/01/21 08:10 79 29 H 109/71 96 10/01/21 08:00 98.4 F 71 35 H 133/66 97 10/01/21 07:54 98.4 F 10/01/21 07:50 75 39 H 133/66 97 10/01/21 07:40 71 37 H 121/74 98 10/01/21 07:30 69 37 H 101/53 97 10/01/21 07:10 69 30 H 83/48 96 10/01/21 07:00 66 32 H 111/45 95 10/01/21 06:50 73 40 H 111/45 96 10/01/21 06:40 70 38 H 116/73 96 10/01/21 06:30 71 34 H 117/57 96 10/01/21 06:20 70 34 H 117/57 95 10/01/21 06:10 72 35 H 108/52 95 10/01/21 06:00 75 33 H 105/64 95 10/01/21 05:50 75 29 H 105/64 95 10/01/21 05:40 96.9 F L 78 31 H 113/35 94 L 10/01/21 05:01 79 24 101/49 97 10/01/21 04:00 80 24 121/52 98 10/01/21 03:20 74 24 108/49 96 10/01/21 03:00 74 24 92/31 96 10/01/21 02:45 73 24 83/35 97 10/01/21 02:32 72 24 70/23 97 10/01/21 02:15 74 24 69/25 97 10/01/21 02:00 74 24 67/37 97 10/01/21 01:48 74 78/28 10/01/21 01:41 68 20 70/39 95 10/01/21 01:25 69/28 10/01/21 01:20 74 20 47/37 95 10/01/21 01:15 78 20 107/71 94 L 10/01/21 01:12 83 54/34 09/30/21 23:30 98 F 84 28 H 137/108 94 L Intake and Output 09/30/21 10/01/21 10/01/21 22:59 06:59 14:59 Intake Total 329.000 960.144 Output Total 155 225 Balance 174.000 735.144 Intake: IV 75 953 Dextrose 5%-0.45% NaCl 1, 75 300 000 ml @ 75 mls/hr IV . [id number] [facility] Rx#:[id number] Pressure Bag 3 Intake, IV Titration 254.000 7.144 Amount Norepinephrine 4 mg In 254.000 Sodium Chloride 0.9% 250 ml @ 0.05 MCG/KG/MIN 10. 801 mls/hr IV .[id number] [facility] Rx#:[id number] propofoL 1,000 mg In 7.144 Empty Bag 1 bag @ Titrate IV .Q0M [facility] Rx#: [id number] Output: Urine 155 125 Uretheral (Reyes) 100 Estimated Blood Loss 100 Other: Voiding Method Indwelling Catheter Indwelling Catheter Weight 56.699 kg at the operating room Results CBC & Chem 7: 09/30/21 23:56 10/01/21 09:36 Labs: Abnormal Lab Results - Last 24 Hours (Table) 09/30/21 09/30/21 09/30/21 Range/Units 23:56 23:56 23:56 MCHC 30.3 L (31.0-37.0) g/dL Lymphocytes # (Manual) 0.54 L (1.0-4.8) k/uL Metamyelocytes # (Man) 0.34 H (0) k/uL Myelocytes # (Manual) 0.07 H (0) k/uL ABG pH (7.35-7.45) ABG pO2 (83-108) mmHg ABG HCO3 (21-25) mmol/L ABG Total CO2 (19-24) mmol/L ABG O2 Saturation (94-97) % Potassium (3.5-5.1) mmol/L Chloride (98-107) mmol/L Carbon Dioxide 10 L (22-30) mmol/L BUN 28 H (7-17) mg/dL Creatinine 1.85 H (0.52-1.04) mg/dL Glucose 107 H (74-99) mg/dL POC Glucose (mg/dL) (75-99) mg/dL Plasma Lactic Acid Khris (0.7-2.0) mmol/L Calcium (8.4-10.2) mg/dL Phosphorus 7.4 H (2.5-4.5) mg/dL Magnesium 2.7 H (1.6-2.3) mg/dL Total Bilirubin 1.5 H (0.2-1.3) mg/dL AST 45 H (14-36) U/L Amylase 148 H (30-110) U/L Urine Protein 2+ H (Negative) Urine Blood Trace H (Negative) Ur Leukocyte Esterase Moderate H (Negative) Urine WBC 63 H (0-5) /hpf Urine WBC Clumps Occasional H (None) /hpf Amorphous Sediment Occasional H (None) /hpf Urine Bacteria Rare H (None) /hpf Hyaline Casts 3 H (0-2) /lpf Urine Mucus Rare H (None) /hpf Coronavirus (PCR) (Not Detectd) 09/30/21 10/01/21 10/01/21 Range/Units 23:56 01:49 03:28 MCHC (31.0-37.0) g/dL Lymphocytes # (Manual) (1.0-4.8) k/uL Metamyelocytes # (Man) (0) k/uL Myelocytes # (Manual) (0) k/uL ABG pH 7.23 L (7.35-7.45) ABG pO2 >400 H (83-108) mmHg ABG HCO3 15 L (21-25) mmol/L ABG Total CO2 16 L (19-24) mmol/L ABG O2 Saturation 100.0 H (94-97) % Potassium (3.5-5.1) mmol/L Chloride (98-107) mmol/L Carbon Dioxide (22-30) mmol/L BUN (7-17) mg/dL Creatinine (0.52-1.04) mg/dL Glucose (74-99) mg/dL POC Glucose (mg/dL) (75-99) mg/dL Plasma Lactic Acid Khris 12.6 H* 4.0 H* (0.7-2.0) mmol/L Calcium (8.4-10.2) mg/dL Phosphorus (2.5-4.5) mg/dL Magnesium (1.6-2.3) mg/dL Total Bilirubin (0.2-1.3) mg/dL AST (14-36) U/L Amylase (30-110) U/L Urine Protein (Negative) Urine Blood (Negative) Ur Leukocyte Esterase (Negative) Urine WBC (0-5) /hpf Urine WBC Clumps (None) /hpf Amorphous Sediment (None) /hpf Urine Bacteria (None) /hpf Hyaline Casts (0-2) /lpf Urine Mucus (None) /hpf Coronavirus (PCR) (Not Detectd) 10/01/21 10/01/21 10/01/21 Range/Units 05:30 06:10 06:12 MCHC (31.0-37.0) g/dL Lymphocytes # (Manual) (1.0-4.8) k/uL Metamyelocytes # (Man) (0) k/uL Myelocytes # (Manual) (0) k/uL ABG pH 7.34 L (7.35-7.45) ABG pO2 (83-108) mmHg ABG HCO3 19 L (21-25) mmol/L ABG Total CO2 (19-24) mmol/L ABG O2 Saturation (94-97) % Potassium (3.5-5.1) mmol/L Chloride (98-107) mmol/L Carbon Dioxide (22-30) mmol/L BUN (7-17) mg/dL Creatinine (0.52-1.04) mg/dL Glucose (74-99) mg/dL POC Glucose (mg/dL) 109 H (75-99) mg/dL Plasma Lactic Acid Khris 3.9 H* (0.7-2.0) mmol/L Calcium (8.4-10.2) mg/dL Phosphorus (2.5-4.5) mg/dL Magnesium (1.6-2.3) mg/dL Total Bilirubin (0.2-1.3) mg/dL AST (14-36) U/L Amylase (30-110) U/L Urine Protein (Negative) Urine Blood (Negative) Ur Leukocyte Esterase (Negative) Urine WBC (0-5) /hpf Urine WBC Clumps (None) /hpf Amorphous Sediment (None) /hpf Urine Bacteria (None) /hpf Hyaline Casts (0-2) /lpf Urine Mucus (None) /hpf Coronavirus (PCR) (Not Detectd) 10/01/21 10/01/21 Range/Units 08:20 09:36 MCHC (31.0-37.0) g/dL Lymphocytes # (Manual) (1.0-4.8) k/uL Metamyelocytes # (Man) (0) k/uL Myelocytes # (Manual) (0) k/uL ABG pH (7.35-7.45) ABG pO2 (83-108) mmHg ABG HCO3 (21-25) mmol/L ABG Total CO2 (19-24) mmol/L ABG O2 Saturation (94-97) % Potassium 3.1 L (3.5-5.1) mmol/L Chloride 110 H (98-107) mmol/L Carbon Dioxide 16 L (22-30) mmol/L BUN 31 H (7-17) mg/dL Creatinine 2.20 H (0.52-1.04) mg/dL Glucose 119 H (74-99) mg/dL POC Glucose (mg/dL) (75-99) mg/dL Plasma Lactic Acid Khris (0.7-2.0) mmol/L Calcium 7.4 L (8.4-10.2) mg/dL Phosphorus (2.5-4.5) mg/dL Magnesium (1.6-2.3) mg/dL Total Bilirubin (0.2-1.3) mg/dL AST (14-36) U/L Amylase (30-110) U/L Urine Protein (Negative) Urine Blood (Negative) Ur Leukocyte Esterase (Negative) Urine WBC (0-5) /hpf Urine WBC Clumps (None) /hpf Amorphous Sediment (None) /hpf Urine Bacteria (None) /hpf Hyaline Casts (0-2) /lpf Urine Mucus (None) /hpf Coronavirus (PCR) Detected A (Not Detectd) Assessment and Plan Plan: 1. Acute pneumoperitoneum, with peritonitis considered for small bowel perforation, underlying ischemic bowel, requiring mechanical intubation, on the emergency department. General surgery, is working on her exploratory laparotomy today 10/01/2020. She has severe lactic acidosis, hypotension, septic shock. She is now requiring fluid resuscitations, 63.5 L at the emergency room, and is on pressors and IV antibiotics. Consult Dr. acharya 2. Small bowel perforation suspected, with septic shock, explore lap on 10/01/1908/10/2022, IV Zosyn 3. Septic shock, IV antibiotics, with fluids and pressors at this time norepinephrine, is given with titration to blood pressure, and 5 mg/kg/m 4. History of kidney transplantation, , on immunosuppressive agent, CellCept and prednisone and cyclosporine 5 CK D, suspect stage III, chronic atrial fibrillation, with prior TIA, on maintenance [place], currently on hold for surgical procedure 6 Atrial fibrillation, on chronic anticoagulation, consult with Dr. Oneill 7. Covid 19 infection, unknown infection time and onset of signs and symptoms, vaccination status not Determined, consult Dr. Acharya, obtain Covid markers d- dimer, and CRP sed rate will not be as accurate at this time secondary to severe sepsis, with peritonitis 5 Osteoporosis 6 Breast cancer, with lobular carcinoma in situ, had surgery for these activity unknown, 7 History of bilateral focal segmental glomerulosclerosis with right kidney transplant in [address] Carmona DVT prophylaxis GI prophylaxis Prognosis guarded CODE STATUS, full until specified
[2021-10-01] MEDS: PIPERACILLIN-TAZOBACTAM 3.375 GM in SODIUM CHLORIDE 0.9% 100 ML IVPB SCH ×2 (12:50→21:43)
[2021-10-01] MEDS ORDERED: Potassium Replacement Protocol 1 EACH MISC MISCELLANE PRN (14:53)
[2021-10-01] MEDS: POTASSIUM BICARBONATE/CIT AC 20 MEQ TABLET.EFF NG-TUBE SCH ×2 (15:05→16:22)
[2021-10-01] MEDS: DEXTROSE 5% IN WATER 1,000 ML with SODIUM BICARB (1 MEQ/ML) 150 ML IV SCH (16:21)
[2021-10-01] MEDS ORDERED: POTASSIUM BICARBONATE/CIT AC 20 MEQ TABLET.EFF NG-TUBE SCH (20:00)
[2021-10-01] MEDS: CHLORHEXIDINE GLUCONATE 15 ML CUP MUCOUS MEM SCH (21:42)
[2021-10-02] MEDS: HYDROCORTISONE SUCCINATE 100 MG/2 ML VIAL IV SCH ×3 (01:30→16:13)
[2021-10-02] MEDS: metroNIDAZOLE-NS PMX 500 MG in SALINE 1 100ML.BAG IVPB SCH ×4 (03:08→20:30)
[2021-10-02 05:04] LABS: ABG Base Excess -13.7 mmol/L; ABG HCO3 14 mmol/L (21-25); ABG Oxygen Saturation 96.7 % (94-97); ABG PCO2 31 mmHg (35-45); ABG PH 7.25 (7.35-7.45); ABG PO2 91 mmHg (83-108); ABG TCO2 14 mmol/L (19-24)
[2021-10-02 05:13] LABS: Allen Test Performed? no
[2021-10-02 05:27] LABS: HCT 39.8 % (34.0-46.0); HGB 12.1 gm/dL (11.4-16.0); Hypochromasia Moderate; MCH 29.3 pg (25.0-35.0); MCHC 30.4 g/dL (31.0-37.0); MCV 96.4 fL (80.0-100.0); Mean Platelet Volume 10.5; Platelet Count 123 k/uL (150-450); RBC 4.13 m/uL (3.80-5.40); RDW 14.3 % (11.5-15.5); WBC 24.6 k/uL (3.8-10.6)
[2021-10-02 05:39] LABS: Magnesium 1.9 mg/dL (1.6-2.3); Phosphorus 8.6 mg/dL (2.5-4.5); Potassium 4.5 mmol/L (3.5-5.1); Total Bilirubin 0.8 mg/dL (0.2-1.3); Total Protein 3.8 g/dL (6.3-8.2)
[2021-10-02 05:51] LABS: Calcium 5.9 mg/dL (8.4-10.2)
[2021-10-02 07:22] LABS: Band Neutrophils % 26 %; Lymphocytes # (M) 0.25 k/uL (1.0-4.8); Metamyelocytes # (M) 0.98 k/uL (0); Metamyelocytes % 4 %; Monocytes # (M) 0.74 k/uL (0-1.0); Neutrophils % (M) 67 %; Nucleated Red Blood Cells 0 /100 WBC (0-0); Total Cells Counted 200
[2021-10-02 07:27] LABS: Crenated RBC Present; Poikilocytosis (M) Present; RBC Fragments Present
[2021-10-02] MEDS: DEXTROSE 5% IN WATER 1,000 ML with SODIUM BICARB (1 MEQ/ML) 150 ML IV SCH ×2 (08:14→17:02)
[2021-10-02] MEDS: NOREPINEPHRINE 32 MG in SODIUM CHLORIDE 0.9% 218 ML IV SCH ×2 (08:20→10:19)
--- NOTE | 2021-10-02 08:22 | XR ---
EXAMINATION TYPE: XR chest 1V portable DATE OF EXAM: 10/02/2021 COMPARISON: Chest x-ray 10/01/2021 HISTORY: Intubated TECHNIQUE: Single frontal view of the chest is obtained. FINDINGS: Endotracheal tube, NG tube, right jugular central venous catheter are overlying appropriat e positions, distal tip of the central venous catheter is within the right atrium, distal tip the NG tube not included on exam. Patient is rotated. There are overlying artifacts. There is no evident pne umothorax. Retrocardiac density is present, left hemidiaphragm is obscured. Aorta is dense. Cardiac m ediastinal silhouette is likely stable. IMPRESSION: There may be basilar atelectasis, correlate to exclude pneumonia, possible effusion
[2021-10-02] MEDS: PIPERACILLIN-TAZOBACTAM 3.375 GM in SODIUM CHLORIDE 0.9% 100 ML IVPB SCH ×2 (08:24→20:30)
[2021-10-02] MEDS: PANTOPRAZOLE 40 MG/10 ML VIAL IV SCH (08:24)
[2021-10-02] MEDS: CHLORHEXIDINE GLUCONATE 15 ML CUP MUCOUS MEM SCH ×2 (08:24→20:30)
--- NOTE | 2021-10-02 09:03 | P.PN ---
Subjective Progress Note Date: 10/02/21 81-year-old female patient who presented to the burst department because of an abdominal pain. The patient was found to have free air in the abdomen. A CAT scan of the abdomen was done and the patient was found to have pneumoperitoneum. The patient denied having any fever at home. She did have abdominal pain and nausea. His abdominal pain was of a sudden onset and it occurs at home. No history of any peptic ulcer disease. No history of any inflammatory bowel disease. She is known to have paroxysmal atrial fibrillation and she has been involved in a previous TIA and the patient was treated anticoagulation with Eliquis. 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 Note that her current transplant kidney is the second chest elevation of the patient had. This was given to her back in 2017 at [facility]. During this current admission, the patient had no fevers or chills. She had severe abdominal pain. CAT scan of the abdomen was done in the emergency department and the patient was found to have evidence of moderate size pneumoperitoneum. There was moderate ascites. There was evidence of small bowel wall thickening and mild dilatation and edema of the mesentery consider mesenteric ischemia. She also had a some left lower lobe atelectatic change and cardiomegaly. There was a left-sided pelvic cystic mass. Neurosurgery was consulted and the patient will be taken to the operating room. In the emergency, the patient was intubated and placed on a mechanical ventilator. She was given 3-1/2 L of normal saline. She was started on pressors and the patient is on norepinephrine infusion chronic at 0.5 mcg/kg per minute. Lactic acid level was as high as 12 and currently has improved down to 3.9. Her white cell count is currently at 6.8 with a hemoglobin of 12.7 and platelet coun t of 245. She is currently on a mechanical ventilator on assist control mode at the rate of 26, tidal volume of 300 with an FiO2 of 40% and a PEEP of 5. The pH is 7.34 with a pCO2 of 35 and pO2 is at 83. The patient was given IV Unasyn in the emergency department. General surgeries on the case. The patient will be taken to the operating room. Electrolyte are normal. Reyes catheter has been inserted. She has chronic kidney disease in the creatinine is at 1.8. UA is also abnormal and shows + protein, there are several WBCs consistent for an underlying infection. The current cardiac rhythm is atrial fibrillation with a controlled rate and the patient has frequent 10/02/2021, the patient is postop day #1 the patient was taken to the operating room for an acute pneumoperitoneum an acute abdomen yesterday. The surgery was done and the patient intraoperatively was found to have perforated sigmoid colon. The surgery included exploratory laparotomy, and the patient underwent a sigmoid colectomy and diverting colostomy. Estimated blood loss was around 100 mL. Postop, the patient was kept intubated on a mechanical ventilator and the patient was brought into the ICU for further care. This morning, the patient remains sedated. She is currently on propofol which is running at 25 mL an hour. She is well sedated for now. She is on no paralytics. She remains on a mechanical ventilator. Currently she is on assist control mode of mechanical ventilation and she is currently on assist control of 26, tidal volume of 300, FiO2 of 40% with a PEEP of 5. The morning blood. This showed a pH of 7.25 with a pCO2 of 31 and pO2 of 91. The patient had a chest x-ray today that showed adequate positioning of the orotracheal tube. The patient also has a orogastric tube in place. No evidence of any pneumothorax. The lungs are adequately expanded bilaterally. There is adequate positioning of the a orogastric tube. There is some atelectatic changes in the left lung base. The patient also has a triple-lumen catheter in the right IJ. There is some basilar atelectasis and p ossible effusion the left lung base. Hemodynamically, the patient is still receiving IV fluids. IV fluids are in the form of bicarb infusion at the rate of 75 mL an hour and the rate will be increased up to 150 mL an hour. Patient is also on norepinephrine running at 0.52 mcg/kg per minute. Urine output is in order of 100 mL over the past 12 hours. Overall fluid balance is +2.7 L over the past 24 hours. Meanwhile, the patient's white cell count is at 24.6. Hemoglobin is at 12.6. The serum bicarbonate of 11. Sodium is 136, BUN is a 38 with a creatinine of 3.04 consistent with an acute on top of a chronic kidney disease. Calcium level is down to 5.9 and this needs to be replaced. The patient also had the incidental finding of COVID 19 being positive. Antibiotic coverage includes a combination of Zosyn and Flagyl for now. She has a arterial line catheter. No other significant events otherwise for now. Cultures have been all negative thus far. The patient's cardiac rhythm is atrial fibrillation. Her rate is controlled for now. No anticoagulants for now. No other medication for rate control for now. The patient remains on stress dose hydrocortisone. Objective - Vital Signs Vital signs: Vital Signs Temp 97.1 F L 10/02/21 08:30 Pulse 80 10/02/21 08:30 Resp 29 H 10/02/21 08:30 BP 114/67 10/02/21 08:30 Pulse Ox 94 L 10/02/21 08:30 Intake & Output 10/01/21 10/02/21 10/02/21 18:59 06:59 18:59 Intake Total 2039.732 1042.005 78 Output Total 245 45 0 Balance 1794.732 997.005 78 Weight 56.699 kg 58.6 kg Intake: IV 1777 936 78 Dextrose 5% in Water 1, 300 900 75 000 ml @ 75 mls/hr IV . [id number] [facility] with Sodium Bicarb (1 Meq/ml) 150 ml Rx#:[id number] Dextrose 5%-0.45% NaCl 1, 300 000 ml @ 75 mls/hr IV . [id number] [facility] Rx#:[id number] Dextrose 5%-0.9% NaCl 1, 300 000 ml @ 75 mls/hr IV . [id number] [facility] Rx#:[id number] Piperacillin-Tazobactam 3 100 .375 gm In Sodium Chloride 0.9% 100 ml @ 25 mls/hr IVPB Q12H [facility] Rx# :[id number] Pressure Bag 27 36 3 metroNIDAZOLE-NS PMX 500 100 mg In Saline 1 100ml.bag @ 100 mls/hr IVPB Q6H [facility] Rx#:[id number] Intake, IV Titration 262.732 106.005 Amount Norepinephrine 32 mg In 162.732 41.084 Sodium Chloride 0.9% 218 ml @ 0.05 MCG/KG/MIN 1. 329 mls/hr IV .Q24H [facility] Rx#:[id number] propofoL 1,000 mg In 100.000 64.921 Empty Bag 1 bag @ Titrate IV .Q0M [facility] Rx#: [id number] Output: Urine 145 45 0 Estimated Blood Loss 100 Other: Voiding Method Indwelling Catheter Indwelling Catheter ABP, PAP, CO, CI - Last Documented Arterial Blood Pressure 104/53 - Exam The patient is currently sedated and the patient is currently on propofol running at 25 mcg/kg per minute. She is single has a mechanical ventilator. She is intubated. Orogastric and orotracheal tube are both in place. Output from the OG is minimal at this point in time. Head exam was generally normal. There was no scleral icterus or corneal arcus. Mucous membranes were moist. Neck was supple and without jugular venous distension, thyromegaly, or carotid bruits. Carotids were easily palpable bilaterally. There was no adenopathy. The patient has a right IJ triple-lumen catheter in place. Cardiac exam revealed the PMI to be normally situated and sized. The rhythm is irregular consistent with atrial fibrillation and the patient has extrasystoles that were were noted during several minutes of auscultation. The first and second heart sounds were normal and physiologic splitting of the second heart sound was noted. There were no murmurs, rubs, clicks, or gallops. Lungs were clear to auscultation and percussion, and with normal diaphragmatic excursion. No wheezes or rales were noted. Examination of the abdomen shows some mild abdominal distention. She has a with abdominal wounds. No significant output in her colostomy bag. No direct tenderness. No rebound tenderness. No guarding. Organs cannot be palpated. The patient has scars of previous kidney chest mentation over the anterior abdominal wall. Examination of the extremities revealed easily palpable radial, femoral and pedal pulses. There was no cyanosis, clubbing or edema. Examination of the skin revealed no evidence of significant rashes, suspicious appearing nevi or other concerning lesions. Neurologically the patient sedated for now. - Labs CBC & Chem 7: 10/02/21 05:20 10/02/21 05:20 Labs: Abnormal Lab Results - Last 24 Hours (Table) 10/01/21 10/01/21 10/02/21 Range/Units 09:36 09:36 05:00 WBC (3.8-10.6) k/uL MCHC (31.0-37.0) g/dL Plt Count (150-450) k/uL Neutrophils # (Manual) (1.3-7.7) k/uL Lymphocytes # (Manual) (1.0-4.8) k/uL Metamyelocytes # (Man) (0) k/uL ABG pH 7.25 L (7.35-7.45) ABG pCO2 31 L (35-45) mmHg ABG HCO3 14 L (21-25) mmol/L ABG Total CO2 14 L (19-24) mmol/L Sodium (137-145) mmol/L Potassium 3.1 L (3.5-5.1) mmol/L Chloride 110 H (98-107) mmol/L Carbon Dioxide 16 L (22-30) mmol/L BUN 31 H (7-17) mg/dL Creatinine 2.20 H (0.52-1.04) mg/dL Glucose 119 H (74-99) mg/dL Calcium 7.4 L (8.4-10.2) mg/dL Phosphorus (2.5-4.5) mg/dL Ferritin 55664.0 H (10.0-291.0) ng/mL AST (14-36) U/L Lactate Dehydrogenase 921 H (313-618) U/L Total Protein (6.3-8.2) g/dL Albumin (3.5-5.0) g/dL 10/02/21 10/02/21 Range/Units 05:20 05:20 WBC 24.6 H (3.8-10.6) k/uL MCHC 30.4 L (31.0-37.0) g/dL Plt Count 123 L (150-450) k/uL Neutrophils # (Manual) 22.80 H (1.3-7.7) k/uL Lymphocytes # (Manual) 0.25 L (1.0-4.8) k/uL Metamyelocytes # (Man) 0.98 H (0) k/uL ABG pH (7.35-7.45) ABG pCO2 (35-45) mmHg ABG HCO3 (21-25) mmol/L ABG Total CO2 (19-24) mmol/L Sodium 136 L (137-145) mmol/L Potassium (3.5-5.1) mmol/L Chloride 109 H (98-107) mmol/L Carbon Dioxide 11 L (22-30) mmol/L BUN 38 H (7-17) mg/dL Creatinine 3.04 H (0.52-1.04) mg/dL Glucose (74-99) mg/dL Calcium 5.9 L* (8.4-10.2) mg/dL Phosphorus 8.6 H (2.5-4.5) mg/dL Ferritin (10.0-291.0) ng/mL AST 109 H (14-36) U/L Lactate Dehydrogenase (313-618) U/L Total Protein 3.8 L (6.3-8.2) g/dL Albumin 2.0 L (3.5-5.0) g/dL Microbiology - Last 24 Hours (Table) 09/30/21 23:56 Urine Culture - Preliminary Urine,Voided Assessment and Plan Plan: 1 acute pneumoperitoneum. The patient was found to have an acute perforated sigmoid colon. The patient underwent colectomy and diverting colostomy and the patient is currently postop day #1. She presented to us with acute abdomen. The patient was also septic, hypotensive and significant acidosis. 2 acute hypoxic respiratory failure secondary to above, currently intubated on a mechanical ventilator. 3 septic shock in the setting of an acute abdomen and pneumoperitoneum. The patient is currently on a combination of fluids and pressors and antibiotics. Pressors are running in the form of norepinephrine infusion at 0.52 mg/kg per minute. 4 acute lactic acidosis, improving. The patient remains on a bicarb infusion for now. 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 2 in the most recent chest elevation was done in 2006 8 history of chronic atrial fibrillation with a previous history of TIA, maintained on long-term and to coagulation with Eliquis, the rate is controlled for now and the patient is currently off anticoagulants 9 history of fibrocystic breast disease along with lobular carcinoma in situ of the breast followed up by general surgery 10 history of hypertension 11 history of hyperlipidemia 12 history of chronic back pain along with osteoporosis and the patient walks around with the help of a cane 13 COVID 19 positive, incidental finding 14 postoperative atelectatic changes in lung bases as evident on today's chest x-ray PLAN: Continue ventilator support. No vent changes will be done for today. IV fluids with D5 bicarb at the rate of 150 mL's an hour continue pressors for now , she is on NE at 0.52mcg/kg/min Cover The patient with a combination of Zosyn and Flagyl Stress dose hydrocortisone as the patient has been on prednisone on long-term basis and the patient will be given hydrocortisone 100 mg every 8 hours IV protonix No anti coagulation for now and apply compression devices to the lower extremity is bilaterally echocardiogram showed preserved left ventricular systolic function with ejection fraction 55-60% We'll continue with pressors for now Urine cultures and blood cultures pending Nephrology consulted regarding her kidney transplantation Condition is critical we'll continue to follow and make further recommendations based on her progress. Critical care time 38 minutes Time with Patient: Greater than 30
[2021-10-02] MEDS ORDERED: CALCIUM GLUCONATE 2 GM in SODIUM CHLORIDE 0.9% 100 ML IVPB ONE (09:22)
[2021-10-02] MEDS ORDERED: DEXTROSE 5% IN WATER 100 ML with AMIODARONE 150 MG IV ONE (09:50)
[2021-10-02] MEDS ORDERED: AMIODARONE 360 MG in DEXTROSE 5% IN WATER 200 ML IV ONE ×4 (10:00→22:03)
[2021-10-02] MEDS ORDERED: AMIODARONE IN DEXTROSE,ISO-OSM 150 MG/100 ML PLAST..BAG IV ONE (10:11)
[2021-10-02] MEDS ORDERED: AMIODARONE IN DEXTROSE,ISO-OSM 360 MG/200 ML PLAST..BAG IV ONE (10:11)
--- NOTE | 2021-10-02 11:54 | P.CONS ---
History of Present Illness - Reason for Consult Consult date: 10/01/21 covid and perforated sigmoid colon Requesting physician: Cindy Montgomery - Chief Complaint abd pain x 1 day - History of Present Illness History of Present Illness : Patient is 81-year female who was brought into the ER around midnight for evaluation of abdominal pain apparently the patient's symptoms started the day of presentation the hospital with associated nausea but no documented vomiting and did not have any fever at home patient on arrival to the ER was afebrile and no fever had recorded subsequently patient now presented hospital was mildly hypoxic with O2 sats of 94% patient did have a normal white count with lymphopenia BUN/creatinine has been elevated as well as elevated lactic acid AST was mildly elevated urine is mildly positive patient did have positive COVID test patient did have a KUB x-ray dilated small bowel suspicious for mechanical bowel obstruction no free air is seen chest x-ray with some minimal atelectasis left lower lobe patient did have a CT abdominal pelvis moderate sized pneumoperitoneum mild ascites small bowel wall thickening and mild dilatation could relate to edema and mesenteric ischemia patient was evaluated by general surgery and the patient was taken to the OR in this patient noticed to have a perforated sigmoid colon patient is status post sigmoid colectomy and colostomy and right nephrectomy patient has been admitted to ICU post surgery currently is being treated with Zosyn infectious he was consulted for perforated bowel and a positive COVID test most information has been obtained from review the chart and talking nursing staff as the patient is currently intubated on the vent sedated and is unable provide any history Review of system: Positive points mentioned in history of present illness complete review could not be obtained because of his underlying medical condition. Past medical history : Reviewed, documented below Past surgical history : Reviewed, documented below Social history: Reviewed, documented below Medications: Reviewed, as documented below EXAMINATION: Vital sigans= Reviewed and documented below GENERAL DESCRIPTION: Elderly female lying in bed, no distress. No tachypnea or accessory muscle of respiration use. HEENT: Shows Pallor , no scleral icterus. Patient is orally intubated NECK: Trachea central, no thyromegaly. LUNGS: Unlabored breathing. Decreased breath sound the base. No wheeze or crackle. HEART: S1, S2, regular rate and rhythm. ABDOMEN: Soft, mild distention incision is intact EXTREMITIES: No edema feet SKIN: No rash, no masses palpable. NEUROLOGICAL: The patient is sedated on the vent LABS AND RADIOLOGY: Reviewed results see below Assessment : 1-patient presented to hospital abdominal pain and vomiting in this patient noticed to have a sigmoid diverticulitis with perforation status post laparotomy sigmoid resection and diverting colostomy he will need to cover for the enteric gram-negative both anaerobes and anaerobes 2-patient did have a positive COVID test however the patient did not have any fever on admission and no significant hypoxemia did have mild lymphopenia concerning for possible mild COVID illness and treatment will mostly supportive Plan: 1-patient to continue with Zosyn 3.375 g every 8 hours 2-obtain a sputum for gram stain and culture 3-we will check inflammatory markers and procalcitonin We will follow on clinical condition and cultures to further adjust medication if needed Thank you for this consultation we will follow the patient along with you Past Medical History Past Medical History: Cancer, Hyperlipidemia, Hypertension, Renal Disease Additional Past Medical History / Comment(s): BILATERAL FSGS (FOCAL SEGMENTAL GLOMERULOSCLEROSIS), RIGHT KIDNEY TRANSPLANT (MAY 2007)., LOBULAR CARCINOMA INSITU WITH SURGERY., BACK PAIN- USES CANE,. OSTEOPOROSIS. History of Any Multi-Drug Resistant Organisms: None Reported Past Surgical History: Breast Surgery, Orthopedic Surgery, Tonsillectomy, Tubal Ligation Additional Past Surgical History / Comment(s): LEFT KNEE SURGERY, RIGHT KIDNEY TRANSPLANT MAY 2007. EGD WITH DILATION Past Anesthesia/Blood Transfusion Reactions: Motion Sickness, Postoperative Nausea & Vomiting (PONV) Smoking Status: Unknown if ever smoked - Past Family History Mother Family Medical History: No Reported History Brother(s) Family Medical History: Cancer Additional Family Medical History / Comment(s): COLON CANCER Medications and Allergies Home Medications Medication Instructions Recorded Confirmed Type Atenolol 50 mg PO BID 12/13/14 10/01/21 History cloNIDine HCL [Clonidine HCl] 0.1 mg PO BID 12/13/14 10/01/21 History predniSONE 5 mg PO DAILY 05/14/16 10/01/21 History Furosemide [Lasix] 20 mg PO DAILY 10/22/18 10/01/21 History lisinopriL 60 mg PO HS 10/22/18 10/01/21 History Pantoprazole [Protonix] 40 mg PO DAILY 04/20/20 10/01/21 History Acetaminophen-Codeine 300-30mg 1 tab PO Q4H PRN 10/01/21 10/01/21 History [Tylenol w/codeine #3] Apixaban [Eliquis] 2.5 mg PO BID 10/01/21 10/01/21 History Rosuvastatin [Crestor] 10 mg PO DAILY 10/01/21 10/01/21 History Allergies Allergy/AdvReac Type Severity Reaction Status Date / Time No Known Allergies Allergy Verified 02/19/21 08:23 Physical Exam Vitals: Vital Signs Temp Pulse Resp BP Pulse Ox 10/01/21 19:30 88 39 H 119/73 96 10/01/21 19:15 85 37 H 119/73 97 10/01/21 19:00 85 37 H 119/73 97 10/01/21 18:45 84 35 H 119/73 98 10/01/21 18:30 82 37 H 98 10/01/21 18:15 86 37 H 97 10/01/21 18:00 89 40 H 97 10/01/21 17:45 86 41 H 95 10/01/21 17:30 83 41 H 96 10/01/21 17:15 85 39 H 119/73 96 10/01/21 17:00 85 39 H 119/73 96 10/01/21 16:45 87 39 H 119/73 96 10/01/21 16:30 86 34 H 119/73 96 10/01/21 16:15 86 37 H 96 10/01/21 16:00 98.0 F 83 34 H 96 10/01/21 15:45 82 34 H 96 10/01/21 15:30 72 36 H 10/01/21 15:15 79 33 H 96 10/01/21 15:00 76 27 H 96 10/01/21 14:45 81 29 H 96 10/01/21 14:30 79 27 H 96 10/01/21 14:15 75 28 H 97 10/01/21 14:00 76 26 H 97 10/01/21 13:45 80 26 H 98 10/01/21 13:30 80 26 H 96 10/01/21 13:15 78 26 H 95 10/01/21 13:00 98.1 F 77 28 H 94 L 10/01/21 12:45 78 26 H 94 L 10/01/21 12:30 76 26 H 94 L 10/01/21 12:15 79 26 H 94 L 10/01/21 12:00 80 26 H 94 L 10/01/21 11:45 81 26 H 95 10/01/21 09:30 50 H 114/88 95 10/01/21 09:15 72 44 H 104/84 96 10/01/21 09:10 74 45 H 104/84 96 10/01/21 09:00 72 40 H 108/54 95 10/01/21 08:50 70 43 H 108/54 96 10/01/21 08:40 72 31 H 124/74 95 10/01/21 08:30 75 40 H 113/81 96 10/01/21 08:20 72 30 H 113/81 98 10/01/21 08:10 79 29 H 109/71 96 10/01/21 08:00 98.4 F 71 35 H 133/66 97 10/01/21 07:54 98.4 F 10/01/21 07:50 75 39 H 133/66 97 10/01/21 07:40 71 37 H 121/74 98 10/01/21 07:30 69 37 H 101/53 97 10/01/21 07:10 69 30 H 83/48 96 10/01/21 07:00 66 32 H 111/45 95 10/01/21 06:50 73 40 H 111/45 96 10/01/21 06:40 70 38 H 116/73 96 10/01/21 06:30 71 34 H 117/57 96 10/01/21 06:20 70 34 H 117/57 95 10/01/21 06:10 72 35 H 108/52 95 10/01/21 06:00 75 33 H 105/64 95 10/01/21 05:50 75 29 H 105/64 95 10/01/21 05:40 96.9 F L 78 31 H 113/35 94 L 10/01/21 05:01 79 24 101/49 97 10/01/21 04:00 80 24 121/52 98 10/01/21 03:20 74 24 108/49 96 10/01/21 03:00 74 24 92/31 96 10/01/21 02:45 73 24 83/35 97 10/01/21 02:32 72 24 70/23 97 10/01/21 02:15 74 24 69/25 97 10/01/21 02:00 74 24 67/37 97 10/01/21 01:48 74 78/28 10/01/21 01:41 68 20 70/39 95 10/01/21 01:25 69/28 10/01/21 01:20 74 20 47/37 95 10/01/21 01:15 78 20 107/71 94 L 10/01/21 01:12 83 54/34 09/30/21 23:30 98 F 84 28 H 137/108 94 L Intake and Output 10/01/21 10/01/21 10/01/21 06:59 14:59 22:59 Intake Total 522.806 9179.144 752.732 Output Total 155 230 20 Balance 050.700 7499.144 732.732 Intake: IV 75 1265 590 Dextrose 5% in Water 1, 375 000 ml @ 75 mls/hr IV . [id number] DILCIA with Sodium Bicarb (1 Meq/ml) 150 ml Rx#:[id number] Dextrose 5%-0.45% NaCl 1, 75 300 000 ml @ 75 mls/hr IV . [id number] [facility] Rx#:[id number] Dextrose 5%-0.9% NaCl 1, 300 000 ml @ 75 mls/hr IV . [id number] [facility] Rx#:[id number] Piperacillin-Tazobactam 3 100 .375 gm In Sodium Chloride 0.9% 100 ml @ 25 mls/hr IVPB Q12H [facility] Rx# :[id number] Pressure Bag 15 15 metroNIDAZOLE-NS PMX 500 100 mg In Saline 1 100ml.bag @ 100 mls/hr IVPB Q6H [facility] Rx#:[id number] Intake, IV Titration 254.000 7.144 162.732 Amount Norepinephrine 32 mg In 162.732 Sodium Chloride 0.9% 218 ml @ 0.05 MCG/KG/MIN 1. 329 mls/hr IV .Q24H [facility] Rx#:[id number] Norepinephrine 4 mg In 254.000 Sodium Chloride 0.9% 250 ml @ 0.05 MCG/KG/MIN 10. 801 mls/hr IV .[id number] [facility] Rx#:[id number] propofoL 1,000 mg In 7.144 Empty Bag 1 bag @ Titrate IV .Q0M [facility] Rx#: [id number] Output: Urine 155 130 20 Uretheral (Reyes) 100 Estimated Blood Loss 100 Other: Voiding Method Indwelling Catheter Indwelling Catheter Indwelling Catheter Weight 56.699 kg 56.699 kg ABP, PAP, CO, CI - Last 8 Hours Arterial Blood Pressure 114/68 Arterial Blood Pressure 117/68 Arterial Blood Pressure 130/71 Arterial Blood Pressure 116/64 Arterial Blood Pressure 125/68 Arterial Blood Pressure 104/59 Arterial Blood Pressure 107/62 Arterial Blood Pressure 101/63 Arterial Blood Pressure 99/59 Arterial Blood Pressure 102/62 Arterial Blood Pressure 105/62 Arterial Blood Pressure 112/68 Arterial Blood Pressure 116/67 Arterial Blood Pressure 122/70 Arterial Blood Pressure 127/72 Arterial Blood Pressure 137/71 Arterial Blood Pressure 33/25 Arterial Blood Pressure 101/58 Arterial Blood Pressure 85/53 Arterial Blood Pressure 94/51 Arterial Blood Pressure 96/54 Arterial Blood Pressure 103/55 Arterial Blood Pressure 107/57 Arterial Blood Pressure 111/62 Arterial Blood Pressure 119/65 Arterial Blood Pressure 89/59 Arterial Blood Pressure 88/55 Arterial Blood Pressure 90/56 Arterial Blood Pressure 95/57 Arterial Blood Pressure 100/59 Arterial Blood Pressure 105/62 Results CBC & Chem 7: 10/02/21 05:20 10/02/21 05:20 Labs: Abnormal Lab Results - Last 24 Hours (Table) 09/30/21 09/30/21 09/30/21 Range/Units 23:56 23:56 23:56 MCHC 30.3 L (31.0-37.0) g/dL Lymphocytes # (Manual) 0.54 L (1.0-4.8) k/uL Metamyelocytes # (Man) 0.34 H (0) k/uL Myelocytes # (Manual) 0.07 H (0) k/uL ABG pH (7.35-7.45) ABG pO2 (83-108) mmHg ABG HCO3 (21-25) mmol/L ABG Total CO2 (19-24) mmol/L ABG O2 Saturation (94-97) % Potassium (3.5-5.1) mmol/L Chloride (98-107) mmol/L Carbon Dioxide 10 L (22-30) mmol/L BUN 28 H (7-17) mg/dL Creatinine 1.85 H (0.52-1.04) mg/dL Glucose 107 H (74-99) mg/dL POC Glucose (mg/dL) (75-99) mg/dL Plasma Lactic Acid Khris (0.7-2.0) mmol/L Calcium (8.4-10.2) mg/dL Phosphorus 7.4 H (2.5-4.5) mg/dL Magnesium 2.7 H (1.6-2.3) mg/dL Total Bilirubin 1.5 H (0.2-1.3) mg/dL AST 45 H (14-36) U/L Lactate Dehydrogenase (313-618) U/L Amylase 148 H (30-110) U/L Urine Protein 2+ H (Negative) Urine Blood Trace H (Negative) Ur Leukocyte Esterase Moderate H (Negative) Urine WBC 63 H (0-5) /hpf Urine WBC Clumps Occasional H (None) /hpf Amorphous Sediment Occasional H (None) /hpf Urine Bacteria Rare H (None) /hpf Hyaline Casts 3 H (0-2) /lpf Urine Mucus Rare H (None) /hpf Coronavirus (PCR) (Not Detectd) 09/30/21 10/01/21 10/01/21 Range/Units 23:56 01:49 03:28 MCHC (31.0-37.0) g/dL Lymphocytes # (Manual) (1.0-4.8) k/uL Metamyelocytes # (Man) (0) k/uL Myelocytes # (Manual) (0) k/uL ABG pH 7.23 L (7.35-7.45) ABG pO2 >400 H (83-108) mmHg ABG HCO3 15 L (21-25) mmol/L ABG Total CO2 16 L (19-24) mmol/L ABG O2 Saturation 100.0 H (94-97) % Potassium (3.5-5.1) mmol/L Chloride (98-107) mmol/L Carbon Dioxide (22-30) mmol/L BUN (7-17) mg/dL Creatinine (0.52-1.04) mg/dL Glucose (74-99) mg/dL POC Glucose (mg/dL) (75-99) mg/dL Plasma Lactic Acid Khris 12.6 H* 4.0 H* (0.7-2.0) mmol/L Calcium (8.4-10.2) mg/dL Phosphorus (2.5-4.5) mg/dL Magnesium (1.6-2.3) mg/dL Total Bilirubin (0.2-1.3) mg/dL AST (14-36) U/L Lactate Dehydrogenase (313-618) U/L Amylase (30-110) U/L Urine Protein (Negative) Urine Blood (Negative) Ur Leukocyte Esterase (Negative) Urine WBC (0-5) /hpf Urine WBC Clumps (None) /hpf Amorphous Sediment (None) /hpf Urine Bacteria (None) /hpf Hyaline Casts (0-2) /lpf Urine Mucus (None) /hpf Coronavirus (PCR) (Not Detectd) 10/01/21 10/01/21 10/01/21 Range/Units 05:30 06:10 06:12 MCHC (31.0-37.0) g/dL Lymphocytes # (Manual) (1.0-4.8) k/uL Metamyelocytes # (Man) (0) k/uL Myelocytes # (Manual) (0) k/uL ABG pH 7.34 L (7.35-7.45) ABG pO2 (83-108) mmHg ABG HCO3 19 L (21-25) mmol/L ABG Total CO2 (19-24) mmol/L ABG O2 Saturation (94-97) % Potassium (3.5-5.1) mmol/L Chloride (98-107) mmol/L Carbon Dioxide (22-30) mmol/L BUN (7-17) mg/dL Creatinine (0.52-1.04) mg/dL Glucose (74-99) mg/dL POC Glucose (mg/dL) 109 H (75-99) mg/dL Plasma Lactic Acid Khris 3.9 H* (0.7-2.0) mmol/L Calcium (8.4-10.2) mg/dL Phosphorus (2.5-4.5) mg/dL Magnesium (1.6-2.3) mg/dL Total Bilirubin (0.2-1.3) mg/dL AST (14-36) U/L Lactate Dehydrogenase (313-618) U/L Amylase (30-110) U/L Urine Protein (Negative) Urine Blood (Negative) Ur Leukocyte Esterase (Negative) Urine WBC (0-5) /hpf Urine WBC Clumps (None) /hpf Amorphous Sediment (None) /hpf Urine Bacteria (None) /hpf Hyaline Casts (0-2) /lpf Urine Mucus (None) /hpf Coronavirus (PCR) (Not Detectd) 10/01/21 10/01/21 10/01/21 Range/Units 08:20 09:36 09:36 MCHC (31.0-37.0) g/dL Lymphocytes # (Manual) (1.0-4.8) k/uL Metamyelocytes # (Man) (0) k/uL Myelocytes # (Manual) (0) k/uL ABG pH (7.35-7.45) ABG pO2 (83-108) mmHg ABG HCO3 (21-25) mmol/L ABG Total CO2 (19-24) mmol/L ABG O2 Saturation (94-97) % Potassium 3.1 L (3.5-5.1) mmol/L Chloride 110 H (98-107) mmol/L Carbon Dioxide 16 L (22-30) mmol/L BUN 31 H (7-17) mg/dL Creatinine 2.20 H (0.52-1.04) mg/dL Glucose 119 H (74-99) mg/dL POC Glucose (mg/dL) (75-99) mg/dL Plasma Lactic Acid Khris (0.7-2.0) mmol/L Calcium 7.4 L (8.4-10.2) mg/dL Phosphorus (2.5-4.5) mg/dL Magnesium (1.6-2.3) mg/dL Total Bilirubin (0.2-1.3) mg/dL AST (14-36) U/L Lactate Dehydrogenase 921 H (313-618) U/L Amylase (30-110) U/L Urine Protein (Negative) Urine Blood (Negative) Ur Leukocyte Esterase (Negative) Urine WBC (0-5) /hpf Urine WBC Clumps (None) /hpf Amorphous Sediment (None) /hpf Urine Bacteria (None) /hpf Hyaline Casts (0-2) /lpf Urine Mucus (None) /hpf Coronavirus (PCR) Detected A (Not Detectd) Microbiology - Last 24 Hours (Table) 09/30/21 23:56 Urine Culture - Preliminary Urine,Voided
--- NOTE | 2021-10-02 12:06 | P.CRDCN ---
History of Present Illness History of present illness: This is Dr. Kahn dictating a consult on this patient The patient was interviewed and examined IMPRESSION / ASSESSMENT: Septic shock related to perforated bowel History of paroxysmal atrial fibrillation, history of TIA Hypertension Dyslipidemia PLAN: Treat with IV amiodarone for short-term suppression of atrial fibrillation I would treat her with IV amiodarone for 24 hours only and observe her thereafter Please restart anticoagulation as soon as possible, she's had a history of TIA in the past HPI patient presented to the emergency room with sudden onset of abdominal pain nausea vomiting Pneumoperitoneum with small bowel wall thickening on computed tomography scan of the abdomen and pelvis She was intubated for acute hypoxic respiratory failure She was hypertensive, in septic shock She has a history of kidney transplantation and is on immunosuppressive therapy She is a history of paroxysmal atrial fibrillation and a history of TIA She was on ELIQUIS She has a history of hypertension and dyslipidemia On September 30 she underwent sigmoid colectomy and colostomy Postoperatively she is intubated at this time She has paroxysms of atrial fibrillation 2-D echo shows preserved LV systolic function She is currently on pressors ROS: No fever chills or rigors, no cough, phlegm or expectoration, no nausea, vomiting or diarrhea, no hematuria, dysuria, no musculoskeletal complaints, no strokes or seizures, no skin lesions. EXAMINATION: Patient is intubated at this time, on pressors Breath sounds are reduced Heart sounds S1 and S2 normal REVIEW OF LABS, ECG & MEDICAL DATA Elevated white count of 25,000, hemoglobin 12 Sodium 136, potassium 4.5, chloride 109 Creatinine 3.0 Past Medical History Past Medical History: Cancer, Hyperlipidemia, Hypertension, Renal Disease Additional Past Medical History / Comment(s): BILATERAL FSGS (FOCAL SEGMENTAL GLOMERULOSCLEROSIS), RIGHT KIDNEY TRANSPLANT (MAY 2007)., LOBULAR CARCINOMA INSITU WITH SURGERY., BACK PAIN- USES CANE,. OSTEOPOROSIS. History of Any Multi-Drug Resistant Organisms: None Reported Past Surgical History: Breast Surgery, Orthopedic Surgery, Tonsillectomy, Tubal Ligation Additional Past Surgical History / Comment(s): LEFT KNEE SURGERY, RIGHT KIDNEY TRANSPLANT MAY 2007. EGD WITH DILATION Past Anesthesia/Blood Transfusion Reactions: Motion Sickness, Postoperative Nausea & Vomiting (PONV) Smoking Status: Unknown if ever smoked - Past Family History Mother Family Medical History: No Reported History Brother(s) Family Medical History: Cancer Additional Family Medical History / Comment(s): COLON CANCER Medications and Allergies Home Medications Medication Instructions Recorded Confirmed Type Atenolol 50 mg PO BID 12/13/14 10/01/21 History cloNIDine HCL [Clonidine HCl] 0.1 mg PO BID 12/13/14 10/01/21 History RX: predniSONE 5 mg PO DAILY 05/14/16 10/01/21 History Furosemide [Lasix] 20 mg PO DAILY 10/22/18 10/01/21 History RX: lisinopriL 60 mg PO HS 10/22/18 10/01/21 History Pantoprazole [Protonix] 40 mg PO DAILY 04/20/20 10/01/21 History Acetaminophen-Codeine 300-30mg 1 tab PO Q4H PRN 10/01/21 10/01/21 History [Tylenol w/codeine #3] Apixaban [Eliquis] 2.5 mg PO BID 10/01/21 10/01/21 History Rosuvastatin [Crestor] 10 mg PO DAILY 10/01/21 10/01/21 History Allergies Allergy/AdvReac Type Severity Reaction Status Date / Time No Known Allergies Allergy Verified 02/19/21 08:23 Physical Exam Vitals: Vital Signs Temp Pulse Resp BP Pulse Ox 10/02/21 11:00 76 28 H 117/69 94 L 10/02/21 10:30 79 26 H 117/69 94 L 10/02/21 10:00 80 26 H 111/81 94 L 10/02/21 09:30 80 26 H 111/81 95 10/02/21 09:00 87 28 H 94 L 10/02/21 08:30 97.1 F L 80 29 H 114/67 94 L 10/02/21 08:00 80 31 H 113/75 95 10/02/21 07:30 80 30 H 119/73 95 10/02/21 07:00 81 30 H 95 10/02/21 06:45 81 30 H 95 10/02/21 06:30 82 30 H 95 10/02/21 06:15 82 29 H 95 10/02/21 06:00 83 31 H 95 10/02/21 05:45 82 29 H 94 L 10/02/21 05:30 85 31 H 94 L 10/02/21 05:15 85 31 H 95 10/02/21 05:00 85 32 H 95 10/02/21 04:45 86 33 H 95 10/02/21 04:30 86 34 H 94 L 10/02/21 04:15 88 34 H 95 10/02/21 04:00 98.4 F 86 34 H 95 10/02/21 03:45 86 32 H 95 10/02/21 03:30 87 34 H 94 L 10/02/21 03:15 89 35 H 94 L 10/02/21 03:00 89 35 H 93 L 10/02/21 02:45 89 34 H 94 L 10/02/21 02:30 89 34 H 94 L 10/02/21 02:15 89 33 H 95 10/02/21 02:00 89 35 H 95 10/02/21 01:45 88 34 H 95 10/02/21 01:30 89 34 H 96 10/02/21 01:15 89 34 H 95 10/02/21 01:00 90 34 H 95 10/02/21 00:45 92 35 H 95 10/02/21 00:30 92 35 H 94 L 10/02/21 00:15 92 36 H 95 10/02/21 00:00 99.8 F H 92 37 H 95 10/01/21 23:45 91 35 H 95 10/01/21 23:30 91 37 H 94 L 10/01/21 23:15 90 37 H 94 L 10/01/21 23:00 90 39 H 93 L 10/01/21 22:45 89 40 H 95 10/01/21 22:30 89 37 H 95 10/01/21 22:15 88 37 H 96 10/01/21 22:00 86 36 H 96 10/01/21 21:45 85 36 H 96 10/01/21 21:30 85 36 H 96 10/01/21 21:15 86 36 H 96 10/01/21 21:00 86 36 H 96 10/01/21 20:45 85 36 H 96 10/01/21 20:30 82 38 H 96 10/01/21 20:15 85 39 H 96 10/01/21 20:00 98.9 F 90 37 H 96 10/01/21 19:45 87 37 H 95 10/01/21 19:40 89 38 H 96 10/01/21 19:30 88 39 H 119/73 96 10/01/21 19:15 85 37 H 119/73 97 10/01/21 19:00 85 37 H 119/73 97 10/01/21 18:45 84 35 H 119/73 98 10/01/21 18:30 82 37 H 98 10/01/21 18:15 86 37 H 97 10/01/21 18:00 89 40 H 97 10/01/21 17:45 86 41 H 95 10/01/21 17:30 83 41 H 96 10/01/21 17:15 85 39 H 119/73 96 10/01/21 17:00 85 39 H 119/73 96 10/01/21 16:45 87 39 H 119/73 96 10/01/21 16:30 86 34 H 119/73 96 10/01/21 16:15 86 37 H 96 10/01/21 16:00 98.0 F 83 34 H 96 10/01/21 15:45 82 34 H 96 10/01/21 15:30 72 36 H 10/01/21 15:15 79 33 H 96 10/01/21 15:00 76 27 H 96 10/01/21 14:45 81 29 H 96 10/01/21 14:30 79 27 H 96 10/01/21 14:15 75 28 H 97 10/01/21 14:00 76 26 H 97 10/01/21 13:45 80 26 H 98 10/01/21 13:30 80 26 H 96 10/01/21 13:15 78 26 H 95 10/01/21 13:00 98.1 F 77 28 H 94 L 10/01/21 12:45 78 26 H 94 L 10/01/21 12:30 76 26 H 94 L 10/01/21 12:15 79 26 H 94 L Intake and Output 10/01/21 10/02/21 10/02/21 22:59 06:59 14:59 Intake Total 1120.672 688.921 990.624 Output Total 40 20 35 Balance 1080.672 668.921 955.624 Intake: IV 824 624 915 Calcium Gluconate 2 gm In 100 Sodium Chloride 0.9% 100 ml @ 100 mls/hr IVPB ONCE ONE Rx#:[id number] Dextrose 5% in Water 1, 600 600 600 000 ml @ 150 mls/hr IV . Q7H40M DILCIA with Sodium Bicarb (1 Meq/ml) 150 ml Rx#:[id number] Piperacillin-Tazobactam 3 100 100 .375 gm In Sodium Chloride 0.9% 100 ml @ 25 mls/hr IVPB Q12H [facility] Rx# :[id number] Pressure Bag 24 24 15 metroNIDAZOLE-NS PMX 500 100 100 mg In Saline 1 100ml.bag @ 100 mls/hr IVPB Q6H [facility] Rx#:[id number] Intake, IV Titration 296.672 64.921 75.624 Amount Norepinephrine 32 mg In 203.816 Sodium Chloride 0.9% 218 ml @ 0.05 MCG/KG/MIN 1. 329 mls/hr IV .Q24H ONE Rx#:[id number] Norepinephrine 32 mg In 12.970 Sodium Chloride 0.9% 218 ml @ 0.05 MCG/KG/MIN 1. 329 mls/hr IV .Q24H [facility] Rx#:[id number] propofoL 1,000 mg In 92.856 64.921 62.654 Empty Bag 1 bag @ Titrate IV .Q0M [facility] Rx#: [id number] Output: Urine 40 20 35 Other: Voiding Method Indwelling Catheter Indwelling Catheter Indwelling Catheter Weight 58.6 kg ABP, PAP, CO, CI - Last 8 Hours Arterial Blood Pressure 117/56 Arterial Blood Pressure 114/53 Arterial Blood Pressure 118/53 Arterial Blood Pressure 114/55 Arterial Blood Pressure 104/56 Arterial Blood Pressure 104/53 Arterial Blood Pressure 109/55 Arterial Blood Pressure 114/55 Arterial Blood Pressure 115/55 Arterial Blood Pressure 115/55 Arterial Blood Pressure 112/53 Arterial Blood Pressure 108/52 Arterial Blood Pressure 107/52 Arterial Blood Pressure 92/47 Arterial Blood Pressure 103/52 Arterial Blood Pressure 99/53 Arterial Blood Pressure 100/52 Arterial Blood Pressure 104/53 Arterial Blood Pressure 106/55 Arterial Blood Pressure 113/55 Results 10/02/21 05:20 10/02/21 05:20 Cardiac Enzymes 10/01/21 10/02/21 Range/Units 09:36 05:20 AST 109 H (14-36) U/L Lactate Dehydrogenase 921 H (313-618) U/L CBC 10/02/21 Range/Units 05:20 WBC 24.6 H (3.8-10.6) k/uL RBC 4.13 (3.80-5.40) m/uL Hgb 12.1 (11.4-16.0) gm/dL Hct 39.8 (34.0-46.0) % Plt Count 123 L (150-450) k/uL Comprehensive Metabolic Panel 10/01/21 10/01/21 10/02/21 Range/Units 18:51 23:40 05:20 Sodium 136 L (137-145) mmol/L Potassium 3.7 4.5 4.5 (3.5-5.1) mmol/L Chloride 109 H (98-107) mmol/L Carbon Dioxide 11 L (22-30) mmol/L BUN 38 H (7-17) mg/dL Creatinine 3.04 H (0.52-1.04) mg/dL Glucose 92 (74-99) mg/dL Calcium 5.9 L* (8.4-10.2) mg/dL AST 109 H (14-36) U/L ALT 23 (4-34) U/L Alkaline Phosphatase 44 (38-126) U/L Total Protein 3.8 L (6.3-8.2) g/dL Albumin 2.0 L (3.5-5.0) g/dL Current Medications Generic Name Dose Route Start Last Admin Trade Name Cristoq PRN Reason Stop Dose Admin Chlorhexidine Gluconate 15 ml 10/01/21 21:00 10/02/21 08:24 Chlorhexidine Gluconate 15 Ml Cup MUCOUS MEM 15 ml BID DILCIA Administration Hydrocortisone Sodium Succinate 100 mg 10/01/21 08:30 10/02/21 08:24 Hydrocortisone Succinate 100 Mg/2 Ml Vial IV 100 mg Q8HR DILCIA Administration Propofol 1,000 mg/ IV Solution 100 mls @ 0 mls/hr 10/01/21 01:15 10/02/21 11:18 IV 25 mcg/kg/min .Q0M DILCIA 8.505 mls/hr Administration Protocol Titrate Piperacillin Sod/Tazobactam 100 mls @ 25 mls/hr 10/01/21 09:00 10/02/21 08:24 Sod 3.375 gm/ Sodium Chloride IVPB 25 mls/hr Q12H DILCIA Administration Metronidazole 500 mg/ IV 100 mls @ 100 mls/hr 10/01/21 09:00 10/02/21 08:25 Solution IVPB 100 mls/hr Q6H DILCIA Administration Sodium Bicarbonate 150 ml/ 1,150 mls @ 150 mls/hr 10/01/21 15:00 10/02/21 08:14 Dextrose/Water IV 75 mls/hr .Q7H40M DILCIA Administration Norepinephrine Bitartrate 32 250 mls @ 1.329 mls/hr 10/02/21 03:15 10/02/21 11:19 mg/ Sodium Chloride IV 0.46 mcg/kg/min .Q24H [facility]IL[facility] 12.226 mls/hr Titration Protocol 0.05 MCG/KG/MIN Amiodarone HCl 360 mg/ 200 mls @ 33.333 mls/hr 10/02/21 10:00 10/02/21 11:18 Dextrose/Water IV 10/02/21 15:59 1 mg/min .Q6H ONE 33.333 mls/hr Administration Protocol 1 MG/MIN Amiodarone HCl 450 mg/ 250 mls @ 16.667 mls/hr 10/02/21 16:00 Dextrose/Water IV 10/03/21 09:59 .Q15H DILCIA Protocol 0.5 MG/MIN Miscellaneous Information 1 each 10/01/21 14:53 Potassium Replacement Protocol 1 Each Misc MISCELLANE DAILY PRN Per Protocol Protocol Naloxone HCl 0.2 mg 10/01/21 03:24 Naloxone 0.4 Mg/Ml 1 Ml Vial IV Q2M PRN Opioid Reversal Pantoprazole Sodium 40 mg 10/01/21 09:00 10/02/21 08:24 Pantoprazole 40 Mg/10 Ml Vial IV 40 mg DAILY DILCIA Administration Intake and Output 10/01/21 10/02/21 10/02/21 22:59 06:59 14:59 Intake Total 1120.672 688.921 990.624 Output Total 40 20 35 Balance 1080.672 668.921 955.624 Intake: IV 824 624 915 Calcium Gluconate 2 gm In 100 Sodium Chloride 0.9% 100 ml @ 100 mls/hr IVPB ONCE ONE Rx#:[id number] Dextrose 5% in Water 1, 600 600 600 000 ml @ 150 mls/hr IV . Q7H40M DILCIA with Sodium Bicarb (1 Meq/ml) 150 ml Rx#:[id number] Piperacillin-Tazobactam 3 100 100 .375 gm In Sodium Chloride 0.9% 100 ml @ 25 mls/hr IVPB Q12H [facility] Rx# :[id number] Pressure Bag 24 24 15 metroNIDAZOLE-NS PMX 500 100 100 mg In Saline 1 100ml.bag @ 100 mls/hr IVPB Q6H [facility] Rx#:[id number] Intake, IV Titration 296.672 64.921 75.624 Amount Norepinephrine 32 mg In 203.816 Sodium Chloride 0.9% 218 ml @ 0.05 MCG/KG/MIN 1. 329 mls/hr IV .Q24H ONE Rx#:[id number] Norepinephrine 32 mg In 12.970 Sodium Chloride 0.9% 218 ml @ 0.05 MCG/KG/MIN 1. 329 mls/hr IV .Q24H [facility] Rx#:[id number] propofoL 1,000 mg In 92.856 64.921 62.654 Empty Bag 1 bag @ Titrate IV .Q0M [facility] Rx#: [id number] Output: Urine 40 20 35 Other: Voiding Method Indwelling Catheter Indwelling Catheter Indwelling Catheter Weight 58.6 kg 10/02/21 05:20 10/02/21 05:20
--- NOTE | 2021-10-02 12:16 | P.PN ---
Subjective Progress Note Date: 10/02/21 HISTORY OF PRESENT ILLNESS This is an 81-year-old pleasant female patient of Dr. Henao, with known history of hypertension, CK D stage III, paroxysmal atrial fibrillation admitted through the emergency room secondary to abdominal pain and found to have pneumoperitoneum. She has significant discomfort, accompanied by nausea, vomiting, no fever. She presented to emergency room with normal findings, in the CAT scan showing moderate pneumoperitoneum, with small bowel thickening, and mild dilatation saray a of the mesenteric considered for mesenteric ischemia there is a left-sided pelvic cystic mass. Chest x-ray shows atelectasis, She is hypotensive, when seen, lactic acid level is high at 12, she was having difficulty of breathing with tachypnea, hence she was preemptively intubated in the emergency room,. She was placed on assist-control, rate of 26, FiO2 40%, PEEP of 5 at the volume of 300. She was sent ICU for stabilization requiring norepinephrine infusion at 0.5 mcg/kg/m for hypotension and septic shock, she received 3.5 L of normal saline for which she is now undergoing exploratory laparotomy. Consult was made with Dr. Price surgeon, and Dr. Nino, critical care ICU physician incidentally, she was tested confirmed Covid positive, on October 0110/02: Patient is seen today in the intensive care unit, remains intubated and on mechanical ventilation with tidal volume 300, FiO2 40 and PEEP of 5. Patient is currently on propofol, bicarb drip, amiodarone is being started for A. fib. Patient is on antibiotics the form of Zosyn and Flagyl. Repeat chest x-ray reveals basilar atelectasis, correlate to exclude pneumonia, possible effusion. 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 Repeat blood work today reveals WBC 24.6, hemoglobin 12.1, platelet count 123. Sodium 136, potassium 4.5, chloride 109, CO2 11, BUN 38 creatinine 3.04. Calcium 5.9. AST 109. Patient remains in isolation for Covid 19. REVIEW OF SYSTEMS ROS unobtainable: due to endotracheal tube PHYSICAL EXAMINATION Gen: This is an 81-year-old female, resting on the ICU bed and appears to be comfortable. ET and orogastric tube in place. HEENT: Head is atraumatic, normocephalic. Pupils equal, round. Sclerae is anicteric. NECK: Supple. No JVD. No lymphadenopathy. No thyromegaly. LUNGS: Clear to auscultation. No wheezes or rhonchi. No intercostal retractions. HEART: Regular rate and rhythm. No murmur. ABDOMEN: Soft. Mild abdominal distention. No tenderness. No output in colostomy bag. Reyes catheter is in place. EXTREMITIES: No pedal edema. No calf tenderness. NEUROLOGICAL: Patient is intubated. ASSESSMENT AND PLAN 1. Acute pneumoperitoneum, with peritonitis considered for small bowel perforation, underlying ischemic bowel, requiring mechanical intubation, on the emergency department. General surgery, is working on her exploratory laparotomy 10/01/2020. She has severe lactic acidosis, hypotension, septic shock. She is now requiring fluid resuscitations, 63.5 L at the emergency room, and is on pressors and IV antibiotics. Consult Dr. acharya and continue on Zosyn and Flagyl 2. Small bowel perforation suspected, with septic shock, explore lap on 10/01/1908/10/2022, IV Zosyn 3. Septic shock, IV antibiotics, with fluids w/o pressors 4. History of kidney transplantation, on immunosuppressive agent, CellCept and prednisone and cyclosporine 5. CKD, suspect stage III, chronic atrial fibrillation, with prior TIA, on maintenance Eliquis, currently on hold for surgical procedure 6. Atrial fibrillation, on chronic anticoagulation, consult with Dr. Oneill 7. Covid 19 infection, unknown infection time and onset of signs and symptoms, vaccination status not Determined, consult Dr. Acharya, obtain Covid markers d- dimer, and CRP sed rate will not be as accurate at this time secondary to severe sepsis, with peritonitis 8. Osteoporosis 9. Breast cancer, with lobular carcinoma in situ, had surgery for these activity unknown, 10. 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 Carmona 11. DVT prophylaxis GI prophylaxis Prognosis guarded CODE STATUS, full until specified Prognosis guarded. Impression and plan of care have been directed as dictated by the signing physician. Cierra Rodas nurse practitioner acting as scribe for signing physician. Objective - Vital Signs Vital signs: Vital Signs Temp 97.1 F L 10/02/21 08:30 Pulse 80 10/02/21 09:30 Resp 26 H 10/02/21 09:30 BP 111/81 10/02/21 09:30 Pulse Ox 95 10/02/21 09:30 Intake & Output 10/01/21 10/02/21 10/02/21 18:59 06:59 18:59 Intake Total 2039.732 1042.005 309 Output Total 245 45 20 Balance 1794.732 997.005 289 Weight 56.699 kg 58.6 kg Intake: IV 1777 936 309 Dextrose 5% in Water 1, 300 900 300 000 ml @ 150 mls/hr IV . Q7H40M [facility]ILCIA with Sodium Bicarb (1 Meq/ml) 150 ml Rx#:[id number] Dextrose 5%-0.45% NaCl 1, 300 000 ml @ 75 mls/hr IV . [id number] [facility] Rx#:[id number] Dextrose 5%-0.9% NaCl 1, 300 000 ml @ 75 mls/hr IV . [id number] [facility] Rx#:[id number] Piperacillin-Tazobactam 3 100 .375 gm In Sodium Chloride 0.9% 100 ml @ 25 mls/hr IVPB Q12H [facility] Rx# :[id number] Pressure Bag 27 36 9 metroNIDAZOLE-NS PMX 500 100 mg In Saline 1 100ml.bag @ 100 mls/hr IVPB Q6H [facility] Rx#:[id number] Intake, IV Titration 262.732 106.005 Amount Norepinephrine 32 mg In 162.732 41.084 Sodium Chloride 0.9% 218 ml @ 0.05 MCG/KG/MIN 1. 329 mls/hr IV .Q24H [facility] Rx#:[id number] propofoL 1,000 mg In 100.000 64.921 Empty Bag 1 bag @ Titrate IV .Q0M [facility] Rx#: [id number] Output: Urine 145 45 20 Estimated Blood Loss 100 Other: Voiding Method Indwelling Catheter Indwelling Catheter Indwelling Catheter ABP, PAP, CO, CI - Last Documented Arterial Blood Pressure 114/55 - Labs CBC & Chem 7: 10/02/21 05:20 10/02/21 05:20 Labs: Abnormal Lab Results - Last 24 Hours (Table) 10/01/21 10/02/21 10/02/21 Range/Units 09:36 05:00 05:20 WBC 24.6 H (3.8-10.6) k/uL MCHC 30.4 L (31.0-37.0) g/dL Plt Count 123 L (150-450) k/uL Neutrophils # (Manual) 22.80 H (1.3-7.7) k/uL Lymphocytes # (Manual) 0.25 L (1.0-4.8) k/uL Metamyelocytes # (Man) 0.98 H (0) k/uL ABG pH 7.25 L (7.35-7.45) ABG pCO2 31 L (35-45) mmHg ABG HCO3 14 L (21-25) mmol/L ABG Total CO2 14 L (19-24) mmol/L Sodium (137-145) mmol/L Chloride (98-107) mmol/L Carbon Dioxide (22-30) mmol/L BUN (7-17) mg/dL Creatinine (0.52-1.04) mg/dL Calcium (8.4-10.2) mg/dL Phosphorus (2.5-4.5) mg/dL Ferritin 23795.0 H (10.0-291.0) ng/mL AST (14-36) U/L Lactate Dehydrogenase 921 H (313-618) U/L Total Protein (6.3-8.2) g/dL Albumin (3.5-5.0) g/dL 10/02/21 Range/Units 05:20 WBC (3.8-10.6) k/uL MCHC (31.0-37.0) g/dL Plt Count (150-450) k/uL Neutrophils # (Manual) (1.3-7.7) k/uL Lymphocytes # (Manual) (1.0-4.8) k/uL Metamyelocytes # (Man) (0) k/uL ABG pH (7.35-7.45) ABG pCO2 (35-45) mmHg ABG HCO3 (21-25) mmol/L ABG Total CO2 (19-24) mmol/L Sodium 136 L (137-145) mmol/L Chloride 109 H (98-107) mmol/L Carbon Dioxide 11 L (22-30) mmol/L BUN 38 H (7-17) mg/dL Creatinine 3.04 H (0.52-1.04) mg/dL Calcium 5.9 L* (8.4-10.2) mg/dL Phosphorus 8.6 H (2.5-4.5) mg/dL Ferritin (10.0-291.0) ng/mL AST 109 H (14-36) U/L Lactate Dehydrogenase (313-618) U/L Total Protein 3.8 L (6.3-8.2) g/dL Albumin 2.0 L (3.5-5.0) g/dL Microbiology - Last 24 Hours (Table) 09/30/21 23:56 Urine Culture - Preliminary Urine,Voided
--- NOTE | 2021-10-02 15:11 | P.PN ---
Subjective Progress Note Date: 10/02/21 CHIEF COMPLAINT: Abdominal pain HISTORY OF PRESENT ILLNESS: Patient is postop day #1 exploratory laparotomy, sigmoid colectomy with colostomy and right oophorectomy for perforated sigmoid colon. Patient is currently the ICU and intubated. She is sedated. She is on Levophed and started on amiodarone for her A. fib. She is Covid positive. She is currently off of anticoagulation. She had been on Eliquis for her A. fib and prior history of TIA. Afebrile. Decreased urine output. WBC 24.6 hemoglobin 12.1 platelets 123 sodium 136 potassium 4.5 creatinine 3.04 lactic acid 5.9 Patient seen and examined with Dr. garcia PHYSICAL EXAM: VITAL SIGNS: Reviewed. GENERAL: Well-developed in no acute distress. HEENT: No sclera icterus. Extraocular movements grossly intact. Moist buccal mucosa. Head is atraumatic, normocephalic. ABDOMEN: Soft. Mildly distended. No output per ostomy NEUROLOGIC: Intubated and sedated ASSESSMENT: 1. Perforated sigmoid colon status post exploratory laparotomy, sigmoid colectomy with colostomy and right oophorectomy 2. Acute hypoxic respiratory failure currently intubated and on mechanical ventilation 3. Septic shock due to perforated sigmoid colon 4. History of A. fib and TIA 5. COVID-19 positive, incidental finding 6. History of kidney transplant. 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 Signing provider agrees with the documented findings, assessment, and plan of care. Objective - Vital Signs Vital signs: Vital Signs Temp 96.1 F L 10/02/21 12:00 Pulse 78 10/02/21 14:30 Resp 26 H 10/02/21 14:30 BP 117/65 10/02/21 14:00 Pulse Ox 94 L 10/02/21 14:30 Intake & Output 10/01/21 10/02/21 10/02/21 18:59 06:59 18:59 Intake Total 2039.732 6799.410 8080.624 Output Total 245 45 50 Balance 1794.732 935.431 4819.624 Weight 56.699 kg 58.6 kg Intake: IV 0084 120 7807 Calcium Gluconate 2 gm In 100 Sodium Chloride 0.9% 100 ml @ 100 mls/hr IVPB ONCE ONE Rx#:[id number] Dextrose 5% in Water 1, 034 116 8698 000 ml @ 150 mls/hr IV . Q7H40M DILCIA with Sodium Bicarb (1 Meq/ml) 150 ml Rx#:[id number] Dextrose 5%-0.45% NaCl 1, 300 000 ml @ 75 mls/hr IV . [id number] [facility] Rx#:[id number] Dextrose 5%-0.9% NaCl 1, 300 000 ml @ 75 mls/hr IV . [id number] [facility] Rx#:[id number] Piperacillin-Tazobactam 3 100 100 .375 gm In Sodium Chloride 0.9% 100 ml @ 25 mls/hr IVPB Q12H [facility] Rx# :[id number] Pressure Bag 27 36 24 metroNIDAZOLE-NS PMX 500 100 100 mg In Saline 1 100ml.bag @ 100 mls/hr IVPB Q6H [facility] Rx#:[id number] Intake, IV Titration 262.732 106.005 75.624 Amount Norepinephrine 32 mg In 162.732 41.084 Sodium Chloride 0.9% 218 ml @ 0.05 MCG/KG/MIN 1. 329 mls/hr IV .Q24H [facility] Rx#:[id number] Norepinephrine 32 mg In 12.970 Sodium Chloride 0.9% 218 ml @ 0.05 MCG/KG/MIN 1. 329 mls/hr IV .Q24H [facility] Rx#:[id number] propofoL 1,000 mg In 100.000 64.921 62.654 Empty Bag 1 bag @ Titrate IV .Q0M [facility] Rx#: [id number] Output: Urine 145 45 50 Estimated Blood Loss 100 Other: Voiding Method Indwelling Catheter Indwelling Catheter Indwelling Catheter ABP, PAP, CO, CI - Last Documented Arterial Blood Pressure 105/59 - Labs CBC & Chem 7: 10/02/21 05:20 10/02/21 05:20 Labs: Abnormal Lab Results - Last 24 Hours (Table) 10/01/21 10/02/21 10/02/21 Range/Units 09:36 05:00 05:20 WBC 24.6 H (3.8-10.6) k/uL MCHC 30.4 L (31.0-37.0) g/dL Plt Count 123 L (150-450) k/uL Neutrophils # (Manual) 22.80 H (1.3-7.7) k/uL Lymphocytes # (Manual) 0.25 L (1.0-4.8) k/uL Metamyelocytes # (Man) 0.98 H (0) k/uL ABG pH 7.25 L (7.35-7.45) ABG pCO2 31 L (35-45) mmHg ABG HCO3 14 L (21-25) mmol/L ABG Total CO2 14 L (19-24) mmol/L Sodium (137-145) mmol/L Chloride (98-107) mmol/L Carbon Dioxide (22-30) mmol/L BUN (7-17) mg/dL Creatinine (0.52-1.04) mg/dL Calcium (8.4-10.2) mg/dL Phosphorus (2.5-4.5) mg/dL Ferritin 57334.0 H (10.0-291.0) ng/mL AST (14-36) U/L Total Protein (6.3-8.2) g/dL Albumin (3.5-5.0) g/dL 10/02/21 Range/Units 05:20 WBC (3.8-10.6) k/uL MCHC (31.0-37.0) g/dL Plt Count (150-450) k/uL Neutrophils # (Manual) (1.3-7.7) k/uL Lymphocytes # (Manual) (1.0-4.8) k/uL Metamyelocytes # (Man) (0) k/uL ABG pH (7.35-7.45) ABG pCO2 (35-45) mmHg ABG HCO3 (21-25) mmol/L ABG Total CO2 (19-24) mmol/L Sodium 136 L (137-145) mmol/L Chloride 109 H (98-107) mmol/L Carbon Dioxide 11 L (22-30) mmol/L BUN 38 H (7-17) mg/dL Creatinine 3.04 H (0.52-1.04) mg/dL Calcium 5.9 L* (8.4-10.2) mg/dL Phosphorus 8.6 H (2.5-4.5) mg/dL Ferritin (10.0-291.0) ng/mL AST 109 H (14-36) U/L Total Protein 3.8 L (6.3-8.2) g/dL Albumin 2.0 L (3.5-5.0) g/dL Microbiology - Last 24 Hours (Table) 09/30/21 23:56 Urine Culture - Final Urine,Voided
[2021-10-02] MEDS ORDERED: AMIODARONE 450 MG in DEXTROSE 5% IN WATER 250 ML IV SCH ×2 (16:00)
--- NOTE | 2021-10-02 16:06 | PN ---
PROGRESS NOTE Patient is seen for followup for acute kidney injury. The patient's renal function has worsened with creatinine increased to 3.0. 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 The patient is maintained on a bicarb drip which was started yesterday, currently running at 75 mL an hour which has been increased. The patient is also on pressors. She is maintained on empiric antibiotics. Lactic acid decreased to 3.9 from 12.6 on initial admission. PHYSICAL EXAMINATION: On examination today, the patient remains on the vent. Blood pressure was 109/55, heart rate 75 per minute, she is afebrile. Examination of the lower extremities shows no significant edema. DIGITAL COMMUNICATIONS MANAGER exam cannot be performed. LAB: Show hemoglobin 12.1, sodium 136, potassium 4.5, chloride 109, CO2 is 11, BUN 38, creatinine 3.0, calcium is 5.9, phosphorus 8.6. ASSESSMENT: 1. Acute kidney injury, ATN, secondary to hypotension, sepsis. The patient remains oliguric. Renal function is worsening. She is also acidotic. Lactic acid has improved although this morning CO2 was down to 11. The patient is maintained on bicarb drip. I will repeat labs this afternoon and adjust the IV fluids accordingly. 2. Acute pneumoperitoneum from perforated sigmoid colon status post colectomy, diverting colostomy, postop day #1. 3. Acute hypoxic respiratory failure secondary to above, remains on the vent. 4. Status post renal transplant 2017 at [facility] for [facility]. 5. Covid-19 infection. No major no major abnormalities noted on the chest x-ray. 6. History of chronic atrial fibrillation and history of TIA, maintained on long-term anticoagulation. PLAN: Continue with IV steroids. Continue to hold off on other immunosuppressive medications. Continue with the bicarb drip. Repeat labs today. Follow up on the cyclosporine level. Continue to hold for now and repeat labs this afternoon and then again in a.m. Continue empiric antibiotics. MMODL / IJN: [id number] /
[2021-10-02] MEDS ORDERED: HEPARIN SODIUM 1,000 UN/ML (10ML VL) IV PRN (21:48)
[2021-10-02] MEDS ORDERED: HEPARIN SODIUM 1,000 UN/ML (10ML VL) IV ONE (21:48)
[2021-10-02] MEDS ORDERED: HEPARIN SOD,PORK IN 0.45% NACL 25,000 UNIT in 0.45% NACL 1 250ML.BAG IV SCH (22:00)
[2021-10-02 22:36] LABS: HCT 34.5 % (34.0-46.0); HGB 11.1 gm/dL (11.4-16.0); Hypochromasia Slight; MCH 30.3 pg (25.0-35.0); MCHC 32.2 g/dL (31.0-37.0); MCV 93.9 fL (80.0-100.0); Mean Platelet Volume 12.7; RBC 3.68 m/uL (3.80-5.40); RDW 14.5 % (11.5-15.5); WBC 29.7 k/uL (3.8-10.6)
--- NOTE | 2021-10-02 22:38 | PN ---
PROGRESS NOTE DATE OF SERVICE: 10/02/2021 REASON FOR FOLLOWUP: 1. Perforated sigmoid diverticulitis. 2. COVID-19 infection. INTERVAL HISTORY: The patient is afebrile. The patient is hemodynamically stable, requiring less pressor support. FiO2 is currently 40%. No significant purulent secretions through the ET or any other changes reported by the nursing staff. PHYSICAL EXAMINATION: Blood pressure 113/61, pulse of 112, temperature 98.1. She is on 40% FiO2. General description is an elderly female intubated on the vent. Respiratory system: Unlabored breathing, decreased intensity of breath sounds. No wheeze. Heart S1, S2. Regular rate and rhythm. Abdomen soft, no tenderness. No guarding or rigidity. LABS: Hemoglobin is 12.1, white count .6, creatinine . DIAGNOSTIC IMPRESSION AND PLAN: Patient on acute respiratory failure which is multifactorial in this patient who did have of a perforated sigmoid colon, status post sigmoid colectomy and diverting colostomy. The patient is covered with Rocephin. That will be continued for now while monitoring she clinical course closely. Continue with supportive care. MMODL / IJN: [id number] /
[2021-10-02 23:00] LABS: INR 1.6 (<1.2); Prothrombin Time 16.2 sec (9.0-12.0)
[2021-10-02 23:21] LABS: Partial Thromboplastin Time >200.0 sec (22.0-30.0)
[2021-10-02 23:30] LABS: Platelet Count 76 k/uL (150-450)
[2021-10-03] LABS: Anisocytosis (M) Present; Band Neutrophils % 40 %; Lymphocytes # (M) 0.59 k/uL (1.0-4.8); Monocytes # (M) 0.89 k/uL (0-1.0); Neutrophils % (M) 55 %; Nucleated Red Blood Cells 0 /100 WBC (0-0); Total Cells Counted 100
[2021-10-03] MEDS: DEXTROSE 5% IN WATER 1,000 ML with SODIUM BICARB (1 MEQ/ML) 150 ML IV SCH ×3 (00:04→22:25)
[2021-10-03] MEDS: HYDROCORTISONE SUCCINATE 100 MG/2 ML VIAL IV SCH ×4 (00:04→23:42)
[2021-10-03] MEDS: NOREPINEPHRINE 32 MG in SODIUM CHLORIDE 0.9% 218 ML IV SCH (02:32)
[2021-10-03] MEDS: metroNIDAZOLE-NS PMX 500 MG in SALINE 1 100ML.BAG IVPB SCH ×4 (02:38→19:46)
[2021-10-03] MEDS ORDERED: AMIODARONE 360 MG in DEXTROSE 5% IN WATER 200 ML IV ONE ×2 (04:02)
[2021-10-03] MEDS ORDERED: AMIODARONE IN DEXTROSE,ISO-OSM 360 MG/200 ML PLAST..BAG IV ONE (04:10)
[2021-10-03 05:10] LABS: ABG Base Excess -0.7 mmol/L; ABG HCO3 24 mmol/L (21-25); ABG Oxygen Saturation 96.5 % (94-97); ABG PCO2 35 mmHg (35-45); ABG PH 7.44 (7.35-7.45); ABG PO2 81 mmHg (83-108); ABG TCO2 25 mmol/L (19-24); Allen Test Performed? Yes
[2021-10-03 05:13] LABS: Albumin 1.9 g/dL (3.5-5.0); Potassium 3.9 mmol/L (3.5-5.1); Total Bilirubin 1.2 mg/dL (0.2-1.3)
[2021-10-03 05:37] LABS: HCT 35.4 % (34.0-46.0); HGB 11.1 gm/dL (11.4-16.0); MCH 29.8 pg (25.0-35.0); MCHC 31.5 g/dL (31.0-37.0); MCV 94.5 fL (80.0-100.0); Mean Platelet Volume 13.1; Platelet Count 62 k/uL (150-450); RBC 3.74 m/uL (3.80-5.40); WBC 31.9 k/uL (3.8-10.6)
[2021-10-03 05:39] LABS: INR 1.2 (<1.2); Prothrombin Time 12.6 sec (9.0-12.0)
[2021-10-03 05:42] LABS: Calcium 5.5 mg/dL (8.4-10.2)
[2021-10-03 05:43] LABS: Partial Thromboplastin Time 108.8 sec (22.0-30.0)
[2021-10-03 06:11] LABS: Anisocytosis (M) Present; Band Neutrophils % 28 %; Lymphocytes # (M) 1.28 k/uL (1.0-4.8); Metamyelocytes # (M) 0.32 k/uL (0); Metamyelocytes % 1 %; Monocytes # (M) 0.32 k/uL (0-1.0); Neutrophils % (M) 66 %; Nucleated Red Blood Cells 0 /100 WBC (0-0); Poikilocytosis (M) Present; Total Cells Counted 100
[2021-10-03] MEDS ORDERED: CALCIUM GLUCONATE 2 GM in SODIUM CHLORIDE 0.9% 100 ML IVPB ONE ×3 (08:19→20:29)
--- NOTE | 2021-10-03 08:24 | P.PN ---
Subjective Progress Note Date: 10/03/21 81-year-old female patient who presented to the burst department because of an abdominal pain. The patient was found to have free air in the abdomen. A CAT scan of the abdomen was done and the patient was found to have pneumoperitoneum. The patient denied having any fever at home. She did have abdominal pain and nausea. His abdominal pain was of a sudden onset and it occurs at home. No history of any peptic ulcer disease. No history of any inflammatory bowel disease. She is known to have paroxysmal atrial fibrillation and she has been involved in a previous TIA and the patient was treated anticoagulation with Eliquis. 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 Note that her current transplant kidney is the second chest elevation of the patient had. This was given to her back in 2017 at [facility]. During this current admission, the patient had no fevers or chills. She had severe abdominal pain. CAT scan of the abdomen was done in the emergency department and the patient was found to have evidence of moderate size pneumoperitoneum. There was moderate ascites. There was evidence of small bowel wall thickening and mild dilatation and edema of the mesentery consider mesenteric ischemia. She also had a some left lower lobe atelectatic change and cardiomegaly. There was a left-sided pelvic cystic mass. Neurosurgery was consulted and the patient will be taken to the operating room. In the emergency, the patient was intubated and placed on a mechanical ventilator. She was given 3-1/2 L of normal saline. She was started on pressors and the patient is on norepinephrine infusion chronic at 0.5 mcg/kg per minute. Lactic acid level was as high as 12 and currently has improved down to 3.9. Her white cell count is currently at 6.8 with a hemoglobin of 12.7 and platelet coun t of 245. She is currently on a mechanical ventilator on assist control mode at the rate of 26, tidal volume of 300 with an FiO2 of 40% and a PEEP of 5. The pH is 7.34 with a pCO2 of 35 and pO2 is at 83. The patient was given IV Unasyn in the emergency department. General surgeries on the case. The patient will be taken to the operating room. Electrolyte are normal. Reyes catheter has been inserted. She has chronic kidney disease in the creatinine is at 1.8. UA is also abnormal and shows + protein, there are several WBCs consistent for an underlying infection. The current cardiac rhythm is atrial fibrillation with a controlled rate and the patient has frequent 10/02/2021, the patient is postop day #1 the patient was taken to the operating room for an acute pneumoperitoneum an acute abdomen yesterday. The surgery was done and the patient intraoperatively was found to have perforated sigmoid colon. The surgery included exploratory laparotomy, and the patient underwent a sigmoid colectomy and diverting colostomy. Estimated blood loss was around 100 mL. Postop, the patient was kept intubated on a mechanical ventilator and the patient was brought into the ICU for further care. This morning, the patient remains sedated. She is currently on propofol which is running at 25 mL an hour. She is well sedated for now. She is on no paralytics. She remains on a mechanical ventilator. Currently she is on assist control mode of mechanical ventilation and she is currently on assist control of 26, tidal volume of 300, FiO2 of 40% with a PEEP of 5. The morning blood. This showed a pH of 7.25 with a pCO2 of 31 and pO2 of 91. The patient had a chest x-ray today that showed adequate positioning of the orotracheal tube. The patient also has a orogastric tube in place. No evidence of any pneumothorax. The lungs are adequately expanded bilaterally. There is adequate positioning of the a orogastric tube. There is some atelectatic changes in the left lung base. The patient also has a triple-lumen catheter in the right IJ. There is some basilar atelectasis and p ossible effusion the left lung base. Hemodynamically, the patient is still receiving IV fluids. IV fluids are in the form of bicarb infusion at the rate of 75 mL an hour and the rate will be increased up to 150 mL an hour. Patient is also on norepinephrine running at 0.52 mcg/kg per minute. Urine output is in order of 100 mL over the past 12 hours. Overall fluid balance is +2.7 L over the past 24 hours. Meanwhile, the patient's white cell count is at 24.6. Hemoglobin is at 12.6. The serum bicarbonate of 11. Sodium is 136, BUN is a 38 with a creatinine of 3.04 consistent with an acute on top of a chronic kidney disease. Calcium level is down to 5.9 and this needs to be replaced. The patient also had the incidental finding of COVID 19 being positive. Antibiotic coverage includes a combination of Zosyn and Flagyl for now. She has a arterial line catheter. No other significant events otherwise for now. Cultures have been all negative thus far. The patient's cardiac rhythm is atrial fibrillation. Her rate is controlled for now. No anticoagulants for now. No other medication for rate control for now. The patient remains on stress dose hydrocortisone. 10/03 2021, the patient is postop day #2 or neck. Abdomen and pneumoperitoneum and the patient underwent a sigmoid resection with a diverting colostomy. The patient is currently on postop day #2. The patient remains hypotensive, the patient remains septic. The patient requires higher doses of pressors. The patient has also developed an acute on top of chronic kidney failure and this occurred on top of her chronically transplanted kidney. The patient remains intubated on a mechanical ventilator. This morning, the patient is sedated with propofol and propofol is running at 25 mcg/kg per minute which is the same as yesterday and she's been adequately sedated. She is on a mechanical ventilator within assist-control mode and a tidal volume of 300 with a rate of 26 and an FiO2 of 4040% with a PEEP of 5. The blood gas was noted from this morning and showed a pH of 7.45 with a pCO2 of 35 and a pO2 of 80. The chest x-ray from today is showing some limited atelectatic changes and left lung base. The lungs are clear and there is no consolidation or infiltrate. Orotracheal tube remains in a good location. Hemodynamically, the patient remains on IV fluids. The patient is receiving bicarb infusion at the rate of 150 mL an hour. Urine output is in order of 30 or 40 mL an hour and the urine output is essentially improving. Serum bicarbonate currently is at 22 and her acidosis is also improved. Meanwhile, the patient continues to be on pressors. The patient is on norepinephrine infusion which is running at 0.4 to microvascular kilogram per minute. Cultures are all negative thus far. The white cell count from today is at 31.9 and it remains quite elevated. Note that the patient's pro calcitonin level was considerably elevated at a time of admission. Another active issue is development of an acute kidney injury on top of her chronic kidney disease. Noted the patient has history of FSGS and she came in to us with a creatinine of 1. his baseline. During her postoperative course and sepsis, the patient developed an acute kidney injury. Her creatinine today is at 3.52. Nephrology has been on consult. Nephrology has opted to stop the immunosuppressive agents which I agree to as the patient is currently hypotensive and septic. On a separate note, the patient do not to be positive for: 19. Despite that, she is not having any significant respiratory issues and the chest x-ray remains currently intact and stable. In terms of her cardiac rhythm, the patient remains in atrial fibrillation. Rate is controlled for now. She was started on amiodarone drip by cardiology. She was also started on IV heparin. The PTT is supratherapeutic at this point in time and I would suggest discontinuing the IV heparin for now and monitoring her coagulation profile. As far as the am iodarone drip, this can be also discontinued knowing that a heart rate between 101 120 is acceptable on this patient. Calcium level has been quite low and ionized calcium has dropped. I give the patient total of 2 g of calcium yesterday and she'll be given another 2 g today and we'll going to monitor calcium level. Her serum albumin is low. Nevertheless, the ionized calcium is also low. Her platelet counts have also dropped probably related to consumption due to her underlying sepsis. Her current antibiotic coverage is a combination of Zosyn and Flagyl. Objective - Vital Signs Vital signs: Vital Signs Temp 97.9 F 10/03/21 04:00 Pulse 103 H 10/03/21 07:00 Resp 28 H 10/03/21 07:00 BP 119/77 10/03/21 07:00 Pulse Ox 92 L 10/03/21 07:00 Intake & Output 10/02/21 10/03/21 10/03/21 18:59 06:59 18:59 Intake Total 2243.333 2478.364 188.998 Output Total 280 255 95 Balance 3054.411 1308.364 93.998 Weight 64.6 [place]: [place] [address] 153 Calcium Gluconate 2 gm In 100 Sodium Chloride 0.9% 100 ml @ 100 mls/hr IVPB ONCE ONE Rx#:[id number] Dextrose 5% in Water 1, 1650 1800 150 000 ml @ 150 mls/hr IV . Q7H40M [facility] with Sodium Bicarb (1 Meq/ml) 150 ml Rx#:[id number] Piperacillin-Tazobactam 3 100 100 .375 gm In Sodium Chloride 0.9% 100 ml @ 25 mls/hr IVPB Q12H [facility] Rx# :[id number] Pressure Bag 36 36 3 metroNIDAZOLE-NS PMX 500 200 200 mg In Saline 1 100ml.bag @ 100 mls/hr IVPB Q6H [facility] Rx#:[id number] Intake, IV Titration 157.333 342.364 35.998 Amount Amiodarone 450 mg In 90.557 Dextrose 5% in Water 250 ml @ 1 MG/MIN 33.333 mls/ hr IV .Q7H30M [facility] Rx#: [id number] Heparin Sod,Pork in 0.45% 35.277 NaCl 25,000 unit In 0.45 % NaCl 1 250ml.bag @ 12 UNITS/KG/HR 7.032 mls/hr IV .Q24H [facility] Rx#: [id number] Norepinephrine 32 mg In 94.679 116.530 35.998 Sodium Chloride 0.9% 218 ml @ 0.05 MCG/KG/MIN 1. 329 mls/hr IV .Q24H [facility] Rx#:[id number] propofoL 1,000 mg In 62.654 100 Empty Bag 1 bag @ Titrate IV .Q0M [facility] Rx#: [id number] Output: Gastric Drainage 150 Urine 130 255 95 Other: Voiding Method Indwelling Catheter Indwelling Catheter ABP, PAP, CO, CI - Last Documented Arterial Blood Pressure 102/58 - Exam The patient is currently sedated and the patient is currently on propofol running at 25 mcg/kg per minute. She is single has a mechanical ventilator. She is intubated. Orogastric and orotracheal tube are both in place. Output from the OG is minimal at this point in time. Head exam was generally normal. There was no scleral icterus or corneal arcus. Mucous membranes were moist. Neck was supple and without jugular venous distension, thyromegaly, or carotid bruits. Carotids were easily palpable bilaterally. There was no adenopathy. The patient has a right IJ triple-lumen catheter in place. Cardiac exam revealed the PMI to be normally situated and sized. The rhythm is irregular consistent with atrial fibrillation and the patient has extrasystoles that were were noted during several minutes of auscultation. The first and second heart sounds were normal and physiologic splitting of the second heart sound was noted. There were no murmurs, rubs, clicks, or gallops. Lungs were clear to auscultation and percussion, and with normal diaphragmatic excursion. No wheezes or rales were noted. Examination of the abdomen shows some mild abdominal distention. She has a with abdominal wounds. No significant output in her colostomy bag. No direct tenderness. No rebound tenderness. No guarding. Organs cannot be palpated. The patient has scars of previous kidney chest mentation over the anterior abdominal wall. Examination of the extremities revealed easily palpable radial, femoral and pedal pulses. There was no cyanosis, clubbing or edema. Examination of the skin revealed no evidence of significant rashes, suspicious appearing nevi or other concerning lesions. Neurologically the patient sedated for now. - Labs CBC & Chem 7: 10/03/21 04:45 10/03/21 04:45 Labs: Abnormal Lab Results - Last 24 Hours (Table) 10/02/21 10/02/21 10/02/21 Range/Units 22:25 22:25 23:55 WBC 29.7 H (3.8-10.6) k/uL RBC 3.68 L (3.80-5.40) m/uL Hgb 11.1 L (11.4-16.0) gm/dL Plt Count 76 L (150-450) k/uL Neutrophils # (Manual) 28.20 H (1.3-7.7) k/uL Lymphocytes # (Manual) 0.59 L (1.0-4.8) k/uL Metamyelocytes # (Man) (0) k/uL PT 16.2 H (9.0-12.0) sec INR 1.6 H (<1.2) APTT >200.0 H* 175.3 H* (22.0-30.0) sec ABG pO2 (83-108) mmHg ABG Total CO2 (19-24) mmol/L Sodium (137-145) mmol/L Chloride (98-107) mmol/L BUN (7-17) mg/dL Creatinine (0.52-1.04) mg/dL Glucose (74-99) mg/dL Calcium (8.4-10.2) mg/dL Ionized Calcium Ashley (4.5-5.3) mg/dL AST (14-36) U/L Total Protein (6.3-8.2) g/dL Albumin (3.5-5.0) g/dL 10/03/21 10/03/21 10/03/21 Range/Units 04:45 04:45 04:45 WBC 31.9 H (3.8-10.6) k/uL RBC 3.74 L (3.80-5.40) m/uL Hgb 11.1 L (11.4-16.0) gm/dL Plt Count 62 L (150-450) k/uL Neutrophils # (Manual) 29.90 H (1.3-7.7) k/uL Lymphocytes # (Manual) (1.0-4.8) k/uL Metamyelocytes # (Man) 0.32 H (0) k/uL PT 12.6 H (9.0-12.0) sec INR 1.2 H (<1.2) APTT 108.8 H* (22.0-30.0) sec ABG pO2 (83-108) mmHg ABG Total CO2 (19-24) mmol/L Sodium 134 L (137-145) mmol/L Chloride 97 L (98-107) mmol/L BUN 46 H (7-17) mg/dL Creatinine 3.52 H (0.52-1.04) mg/dL Glucose 163 H (74-99) mg/dL Calcium 5.5 L* (8.4-10.2) mg/dL Ionized Calcium Ashley (4.5-5.3) mg/dL AST 126 H (14-36) U/L Total Protein 4.0 L (6.3-8.2) g/dL Albumin 1.9 L (3.5-5.0) g/dL 10/03/21 10/03/21 Range/Units 05:05 05:45 WBC (3.8-10.6) k/uL RBC (3.80-5.40) m/uL Hgb (11.4-16.0) gm/dL Plt Count (150-450) k/uL Neutrophils # (Manual) (1.3-7.7) k/uL Lymphocytes # (Manual) (1.0-4.8) k/uL Metamyelocytes # (Man) (0) k/uL PT (9.0-12.0) sec INR (<1.2) APTT (22.0-30.0) sec ABG pO2 81 L (83-108) mmHg ABG Total CO2 25 H (19-24) mmol/L Sodium (137-145) mmol/L Chloride (98-107) mmol/L BUN (7-17) mg/dL Creatinine (0.52-1.04) mg/dL Glucose (74-99) mg/dL Calcium (8.4-10.2) mg/dL Ionized Calcium Ashley 3.0 L* (4.5-5.3) mg/dL AST (14-36) U/L Total Protein (6.3-8.2) g/dL Albumin (3.5-5.0) g/dL Microbiology - Last 24 Hours (Table) 09/30/21 23:56 Urine Culture - Final Urine,Voided Assessment and Plan Plan: 1 acute pneumoperitoneum. The patient was found to have an acute perforated sigmoid colon. The patient underwent colectomy and diverting colostomy and the patient is currently postop day #2. Patient continues to be hypotensive in shock state related to postoperative sepsis. The patient remains in atrial fibrillation. The patient has developed an acute on top of her chronic kidney injury. She is covered with broad-spectrum antibiotics patient remains intubated on a mechanical ventilator. 2 acute hypoxic respiratory failure secondary to above, currently intubated on a mechanical ventilator. 3 septic shock in the setting of an acute abdomen and pneumoperitoneum. The patient is currently on a combination of fluids and pressors and antibiotics. Pressors are running in the form of norepinephrine infusion at 0.4 mg/kg per minute. 4 acute lactic acidosis, improving. The patient remains on a bicarb infusion for now. The metabolic acidosis currently improving. 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 I believe that her heart is quite aggressively suppressed at this point in time. The patient also has developed a supratherapeutic PTT while being on IV heparin. At the same time, her platelets have dropped. 9 history of fibrocystic breast disease along with lobular carcinoma in situ of the breast followed up by general surgery 10 history of hypertension 11 history of hyperlipidemia 12 history of chronic back pain along with osteoporosis and the patient walks around with the help of a cane 13 COVID 19 positive, incidental finding 14 postoperative atelectatic changes in lung bases as evident on today's chest x-ray 15 acquired thrombocytopenia, likely secondary sepsis, unlikely to be related IV heparin. Nevertheless, the PTT is quite elevated. No signs of any bleeding. IV heparin will be discontinued now PLAN: Continue ventilator support. No vent changes will be done for today. IV fluids with D5 bicarb at the rate of 150 mL's an hour continue pressors for now , she is on NE at 0.42 mcg/kg/min Start Vaso physiologi c dose Cover The patient with a combination of Zosyn and Flagyl Continue Stress dose hydrocortisone as the patient has been on prednisone on long-term basis and the patient will be given hydrocortisone 100 mg every 8 hours IV protonix DC IV heparin DC amiodarone Monitor platelets echocardiogram showed preserved left ventricular systolic function with ejection fraction 55-60% We'll continue with pressors for now Urine cultures and blood cultures pending Nephrology consulted regarding her kidney transplantation Off Immunosuppression Condition is critical we'll continue to follow and make further recommendations based on her progress. Critical care time 34 minutes Time with Patient: Greater than 30
[2021-10-03] MEDS: CHLORHEXIDINE GLUCONATE 15 ML CUP MUCOUS MEM SCH ×2 (08:55→19:46)
[2021-10-03] MEDS: PIPERACILLIN-TAZOBACTAM 3.375 GM in SODIUM CHLORIDE 0.9% 100 ML IVPB SCH ×2 (08:55→19:46)
[2021-10-03] MEDS: PANTOPRAZOLE 40 MG/10 ML VIAL IV SCH (08:55)
--- NOTE | 2021-10-03 08:56 | XR ---
EXAMINATION TYPE: XR chest 1V portable DATE OF EXAM: 10/03/2021 Comparison: 10/02/2021 Clinical History: 81-year-old female Tube placement Findings: ET tube tip 3.0 cm from the tri. NG tube sidehole at the GE junction level. Consider further advan cement by 4 cm into the stomach. Anterior midline skin akua in the visualized upper abdomen. There is retrocardiac and left basilar opacity remains. Mild interstitial density at the right base. Heart upper limits of normal in size. Atherosclerotic arch calcifications. Right IJ CVC tip in the lo wer right atrium. Impression: Continued dense retrocardiac and left basilar opacity, probably small effusion with adjacent atelecta sis and consolidation. Mild interstitial change at the right base is also similar.
[2021-10-03] MEDS: SODIUM CHLORIDE 0.9% 150 ML with VASOPRESSIN 60 UNIT IV SCH ×4 (08:57→14:31)
--- NOTE | 2021-10-03 10:58 | P.PN ---
Subjective Progress Note Date: 10/03/21 CHIEF COMPLAINT: Abdominal pain HISTORY OF PRESENT ILLNESS: Patient is postop day #2 exploratory laparotomy, sigmoid colectomy with colostomy and right oophorectomy for perforated sigmoid colon. Patient is currently the ICU and intubated and sedated. Patient is on a high dose of Levophed. Critical care service also has added vasopressin. Patient's urine output is showing improvement. Patient's platelets have decreased to 62. No active signs of bleeding. IV heparin was discontinued. They have also discontinued the amiodarone. Patient has known A. fib. Patient did have a very small piece of stool noted in her ostomy. Afebrile. Heart rate 106 WBC 29.7 up to 31.9 hemoglobin 11.1 platelets are down 62 INR 1.2 sodium 134 potassium 3.9 creatinine 3.5 to calcium 5.5 being replaced PHYSICAL EXAM: VITAL SIGNS: Reviewed. GENERAL: Well-developed in no acute distress. HEENT: No sclera icterus. Extraocular movements grossly intact. Moist buccal mucosa. Head is atraumatic, normocephalic. ABDOMEN: Soft. Dressing clean dry and intact. Small piece of stool noted at ostomy site NEUROLOGIC: Intubated and sedated ASSESSMENT: 1. Perforated sigmoid colon status post exploratory laparotomy, sigmoid colectomy with colostomy and right oophorectomy 2. Acute hypoxic respiratory failure currently intubated and on mechanical ventilation 3. Septic shock due to perforated sigmoid colon 4. History of A. fib and TIA 5. COVID-19 positive, incidental finding 6. History of kidney transplant. Nephrology following 7. Acute kidney injury on chronic kidney disease 8. Thrombocytopenia PLAN: -Continue ICU management -Continue supportive care -Continue IV fluids -Continue antibiotics -DVT prophylaxis SCDs and GI prophylaxis Protonix Physician [employer] Operator note has been reviewed by physician. Signing provider agrees with the documented findings, assessment, and plan of care. Objective - Vital Signs Vital signs: Vital Signs Temp 98.7 F 10/03/21 09:00 Pulse 106 H 10/03/21 10:30 Resp 26 H 10/03/21 10:30 BP 147/106 10/03/21 10:30 Pulse Ox 91 L 10/03/21 10:30 Intake & Output 10/02/21 10/03/21 10/03/21 18:59 06:59 18:59 Intake Total 2243.333 2478.364 418.022 Output Total 280 255 255 Balance 9154.973 3713.364 163.022 Weight 64.6 kg Intake: IV 2086 2136 153 Calcium Gluconate 2 gm In 100 Sodium Chloride 0.9% 100 ml @ 100 mls/hr IVPB ONCE ONE Rx#:[id number] Dextrose 5% in Water 1, 1650 1800 150 000 ml @ 150 mls/hr IV . Q7H40M [facility] with Sodium Bicarb (1 Meq/ml) 150 ml Rx#:[id number] Piperacillin-Tazobactam 3 100 100 .375 gm In Sodium Chloride 0.9% 100 ml @ 25 mls/hr IVPB Q12H [facility] Rx# :[id number] Pressure Bag 36 36 3 metroNIDAZOLE-NS PMX 500 200 200 mg In Saline 1 100ml.bag @ 100 mls/hr IVPB Q6H [facility] Rx#:[id number] Intake, IV Titration 157.333 342.364 265.022 Amount Amiodarone 360 mg In 138.888 Dextrose 5% in Water 200 ml @ 1 MG/MIN 33.333 mls/ hr IV .Q6H ONE Rx#: [id number] Amiodarone 450 mg In 90.557 Dextrose 5% in Water 250 ml @ 1 MG/MIN 33.333 mls/ hr IV .Q7H30M [facility] Rx#: [id number] Heparin Sod,Pork in 0.45% 35.277 NaCl 25,000 unit In 0.45 % NaCl 1 250ml.bag @ 12 UNITS/KG/HR 7.032 mls/hr IV .Q24H [facility] Rx#: [id number] Norepinephrine 32 mg In 94.679 116.530 60.220 Sodium Chloride 0.9% 218 ml @ 0.05 MCG/KG/MIN 1. 329 mls/hr IV .Q24H [facility] Rx#:[id number] propofoL 1,000 mg In 62.654 100 65.914 Empty Bag 1 bag @ Titrate IV .Q0M [facility] Rx#: [id number] Output: Gastric Drainage 150 Urine 130 255 255 Other: Voiding Method Indwelling Catheter Indwelling Catheter ABP, PAP, CO, CI - Last Documented Arterial Blood Pressure 124/68 - Labs CBC & Chem 7: 10/03/21 04:45 10/03/21 04:45 Labs: Abnormal Lab Results - Last 24 Hours (Table) 10/02/21 10/02/21 10/02/21 Range/Units 22:25 22:25 23:55 WBC 29.7 H (3.8-10.6) k/uL RBC 3.68 L (3.80-5.40) m/uL Hgb 11.1 L (11.4-16.0) gm/dL Plt Count 76 L (150-450) k/uL Neutrophils # (Manual) 28.20 H (1.3-7.7) k/uL Lymphocytes # (Manual) 0.59 L (1.0-4.8) k/uL Metamyelocytes # (Man) (0) k/uL PT 16.2 H (9.0-12.0) sec INR 1.6 H (<1.2) APTT >200.0 H* 175.3 H* (22.0-30.0) sec ABG pO2 (83-108) mmHg ABG Total CO2 (19-24) mmol/L Sodium (137-145) mmol/L Chloride (98-107) mmol/L BUN (7-17) mg/dL Creatinine (0.52-1.04) mg/dL Glucose (74-99) mg/dL Calcium (8.4-10.2) mg/dL Ionized Calcium Ashley (4.5-5.3) mg/dL AST (14-36) U/L Total Protein (6.3-8.2) g/dL Albumin (3.5-5.0) g/dL 10/03/21 10/03/21 10/03/21 Range/Units 04:45 04:45 04:45 WBC 31.9 H (3.8-10.6) k/uL RBC 3.74 L (3.80-5.40) m/uL Hgb 11.1 L (11.4-16.0) gm/dL Plt Count 62 L (150-450) k/uL Neutrophils # (Manual) 29.90 H (1.3-7.7) k/uL Lymphocytes # (Manual) (1.0-4.8) k/uL Metamyelocytes # (Man) 0.32 H (0) k/uL PT 12.6 H (9.0-12.0) sec INR 1.2 H (<1.2) APTT 108.8 H* (22.0-30.0) sec ABG pO2 (83-108) mmHg ABG Total CO2 (19-24) mmol/L Sodium 134 L (137-145) mmol/L Chloride 97 L (98-107) mmol/L BUN 46 H (7-17) mg/dL Creatinine 3.52 H (0.52-1.04) mg/dL Glucose 163 H (74-99) mg/dL Calcium 5.5 L* (8.4-10.2) mg/dL Ionized Calcium Ashley (4.5-5.3) mg/dL AST 126 H (14-36) U/L Total Protein 4.0 L (6.3-8.2) g/dL Albumin 1.9 L (3.5-5.0) g/dL 10/03/21 10/03/21 Range/Units 05:05 05:45 WBC (3.8-10.6) k/uL RBC (3.80-5.40) m/uL Hgb (11.4-16.0) gm/dL Plt Count (150-450) k/uL Neutrophils # (Manual) (1.3-7.7) k/uL Lymphocytes # (Manual) (1.0-4.8) k/uL Metamyelocytes # (Man) (0) k/uL PT (9.0-12.0) sec INR (<1.2) APTT (22.0-30.0) sec ABG pO2 81 L (83-108) mmHg ABG Total CO2 25 H (19-24) mmol/L Sodium (137-145) mmol/L Chloride (98-107) mmol/L BUN (7-17) mg/dL Creatinine (0.52-1.04) mg/dL Glucose (74-99) mg/dL Calcium (8.4-10.2) mg/dL Ionized Calcium Ashley 3.0 L* (4.5-5.3) mg/dL AST (14-36) U/L Total Protein (6.3-8.2) g/dL Albumin (3.5-5.0) g/dL Microbiology - Last 24 Hours (Table) 09/30/21 23:56 Urine Culture - Final Urine,Voided
--- NOTE | 2021-10-03 12:01 | PN ---
PROGRESS NOTE Patient is seen for followup for acute kidney injury. Patient's blood pressure is slightly improved. The pressors are being decreased. She remains on bicarb drip. Urine output has picked up over the last 5 hours. On examination today, patient is seen from the door. She remains on the vent. Case is discussed with nursing staff. Blood pressure 126/94, heart rate 110 per minute. No significant edema noted. FiO2 is at 40%. Labs show sodium of 134, potassium 3.9, chloride 97, BUN 46, creatinine 3.5, calcium 5.5, hemoglobin 11.1 g/dL. ASSESSMENT: 1. Acute kidney injury, acute tubular necrosis, secondary to hypotension, hypovolemia. Urine output has picked up. Expect creatinine to also start improving by tomorrow. 2. Severe metabolic acidosis associated with severe lactic acidosis, renal failure and gastrointestinal fluid loss, currently improving. Will continue with the bicarb drip for one more day. 3. Acute pneumoperitoneum from perforated sigmoid colon, status post colectomy, diverting colostomy, postoperative day #2. 4. Acute hypoxic respiratory failure secondary to above. 5. 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 6. History of chronic atrial fibrillation. PLAN: Continue bicarb drip. Continue IV steroids. Repeat labs in a.m. Avoid any other nephrotoxic agents. MMODL / IJN: [id number] /
--- NOTE | 2021-10-03 13:33 | P.PN ---
Subjective Progress Note Date: 10/03/21 HISTORY OF PRESENT ILLNESS This is an 81-year-old pleasant female patient of Dr. Henao, with known history of hypertension, CK D stage III, paroxysmal atrial fibrillation admitted through the emergency room secondary to abdominal pain and found to have pneumoperitoneum. She has significant discomfort, accompanied by nausea, vomiting, no fever. She presented to emergency room with normal findings, in the CAT scan showing moderate pneumoperitoneum, with small bowel thickening, and mild dilatation saray a of the mesenteric considered for mesenteric ischemia there is a left-sided pelvic cystic mass. Chest x-ray shows atelectasis, She is hypotensive, when seen, lactic acid level is high at 12, she was having difficulty of breathing with tachypnea, hence she was preemptively intubated in the emergency room,. She was placed on assist-control, rate of 26, FiO2 40%, PEEP of 5 at the volume of 300. She was sent ICU for stabilization requiring norepinephrine infusion at 0.5 mcg/kg/m for hypotension and septic shock, she received 3.5 L of normal saline for which she is now undergoing exploratory laparotomy. Consult was made with Dr. Price surgeon, and Dr. Nino, critical care ICU physician incidentally, she was tested confirmed Covid positive, on October 0110/02: Patient is seen today in the intensive care unit, remains intubated and on mechanical ventilation with tidal volume 300, FiO2 40 and PEEP of 5. Patient is currently on propofol, bicarb drip, amiodarone is being started for A. fib. Patient is on antibiotics the form of Zosyn and Flagyl. Repeat chest x-ray reveals basilar atelectasis, correlate to exclude pneumonia, possible effusion. Patient is followed by infectious disease, cardiology, buyer tobacco head, nephrology, general surgery. Repeat blood work today reveals WBC 24.6, hemoglobin 12.1, platelet count 123. Sodium 136, potassium 4.5, chloride 109, CO2 11, BUN 38 creatinine 3.04. Calcium 5.9. AST 109. Patient remains in isolation for Covid 19. 10/03: Remains intubated on mechanical ventilation with tidal volume 300, FiO2 40, PEEP of 5. She has had very minimal amount output on ostomy. She has been on high-dose levo fed started on vasopressin as well and heparin drip is off due to elevated PTT. She has had no output from her OG. Urine output has improved. REVIEW OF SYSTEMS ROS unobtainable: due to endotracheal tube PHYSICAL EXAMINATION Gen: This is an 81-year-old female, resting on the ICU bed and appears to be comfortable. ET and orogastric tube in place. HEENT: Head is atraumatic, normocephalic. Pupils equal, round. Sclerae is anicteric. NECK: Supple. No JVD. No lymphadenopathy. No thyromegaly. LUNGS: Clear to auscultation. No wheezes or rhonchi. No intercostal retractions. HEART: Regular rate and rhythm. No murmur. ABDOMEN: Soft. Mild abdominal distention. No tenderness. No output in colostomy bag. Reyes catheter is in place. EXTREMITIES: No pedal edema. No calf tenderness. NEUROLOGICAL: Patient is intubated. ASSESSMENT AND PLAN 1. Acute pneumoperitoneum, with peritonitis considered for small bowel perfo ration, underlying ischemic bowel, requiring mechanical intubation, on the emergency department. General surgery, is working on her exploratory laparotomy 10/01/2020. She has severe lactic acidosis, hypotension, septic shock. She is now requiring fluid resuscitations, 63.5 L at the emergency room, and is on pressors and IV antibiotics. Consult Dr. acharya and continue on Zosyn and Flagyl 2. Small bowel perforation suspected, with septic shock, explore lap on 10/01/1908/10/2022, IV Zosyn 3. Septic shock, IV antibiotics, with fluids w/o pressors 4. History of kidney transplantation, on immunosuppressive agent, CellCept and prednisone and cyclosporine 5. CKD, suspect stage III, chronic atrial fibrillation, with prior TIA, on maintenance Eliquis, currently on hold for surgical procedure 6. Atrial fibrillation, on chronic anticoagulation, consult with Dr. Oneill 7. Covid 19 infection, unknown infection time and onset of signs and symptoms, vaccination status not Determined, consult Dr. Acharya, obtain Covid markers d- dimer, and CRP sed rate will not be as accurate at this time secondary to severe sepsis, with peritonitis 8. Osteoporosis 9. Breast cancer, with lobular carcinoma in situ, had surgery for these activity unknown, 10. 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 Carmona 11. DVT prophylaxis GI prophylaxis Prognosis guarded CODE STATUS, full until specified Prognosis guarded. Impression and plan of care have been directed as dictated by the signing physician. Cierra Rodas nurse practitioner acting as scribe for signing physician. Objective - Vital Signs Vital signs: Vital Signs Temp 97.9 F 10/03/21 04:00 Pulse 103 H 10/03/21 07:00 Resp 28 H 10/03/21 07:00 BP 119/77 10/03/21 07:00 Pulse Ox 92 L 10/03/21 07:00 Intake & Output 10/02/21 10/03/21 10/03/21 18:59 06:59 18:59 Intake Total 2243.333 2478.364 418.022 Output Total 280 255 95 Balance 6920.859 6639.364 323.022 Weight 64.6 [place]: [place] [address] 153 Calcium Gluconate 2 gm In 100 Sodium Chloride 0.9% 100 ml @ 100 mls/hr IVPB ONCE ONE Rx#:[id number] Dextrose 5% in Water 1, 1650 1800 150 000 ml @ 150 mls/hr IV . Q7H40M [facility] with Sodium Bicarb (1 Meq/ml) 150 ml Rx#:[id number] Piperacillin-Tazobactam 3 100 100 .375 gm In Sodium Chloride 0.9% 100 ml @ 25 mls/hr IVPB Q12H [facility] Rx# :[id number] Pressure Bag 36 36 3 metroNIDAZOLE-NS PMX 500 200 200 mg In Saline 1 100ml.bag @ 100 mls/hr IVPB Q6H [facility] Rx#:[id number] Intake, IV Titration 157.333 342.364 265.022 Amount Amiodarone 360 mg In 138.888 Dextrose 5% in Water 200 ml @ 1 MG/MIN 33.333 mls/ hr IV .Q6H ONE Rx#: [id number] Amiodarone 450 mg In 90.557 Dextrose 5% in Water 250 ml @ 1 MG/MIN 33.333 mls/ hr IV .Q7H30M [facility] Rx#: [id number] Heparin Sod,Pork in 0.45% 35.277 NaCl 25,000 unit In 0.45 % NaCl 1 250ml.bag @ 12 UNITS/KG/HR 7.032 mls/hr IV .Q24H [facility] Rx#: [id number] Norepinephrine 32 mg In 94.679 116.530 60.220 Sodium Chloride 0.9% 218 ml @ 0.05 MCG/KG/MIN 1. 329 mls/hr IV .Q24H [facility] Rx#:[id number] propofoL 1,000 mg In 62.654 100 65.914 Empty Bag 1 bag @ Titrate IV .Q0M [facility] Rx#: [id number] Output: Gastric Drainage 150 Urine 130 255 95 Other: Voiding Method Indwelling Catheter Indwelling Catheter ABP, PAP, CO, CI - Last Documented Arterial Blood Pressure 102/58 - Labs CBC & Chem 7: 10/03/21 04:45 10/03/21 04:45 Labs: Abnormal Lab Results - Last 24 Hours (Table) 10/02/21 10/02/21 10/02/21 Range/Units 22:25 22:25 23:55 WBC 29.7 H (3.8-10.6) k/uL RBC 3.68 L (3.80-5.40) m/uL Hgb 11.1 L (11.4-16.0) gm/dL Plt Count 76 L (150-450) k/uL Neutrophils # (Manual) 28.20 H (1.3-7.7) k/uL Lymphocytes # (Manual) 0.59 L (1.0-4.8) k/uL Metamyelocytes # (Man) (0) k/uL PT 16.2 H (9.0-12.0) sec INR 1.6 H (<1.2) APTT >200.0 H* 175.3 H* (22.0-30.0) sec ABG pO2 (83-108) mmHg ABG Total CO2 (19-24) mmol/L Sodium (137-145) mmol/L Chloride (98-107) mmol/L BUN (7-17) mg/dL Creatinine (0.52-1.04) mg/dL Glucose (74-99) mg/dL Calcium (8.4-10.2) mg/dL Ionized Calcium Ashley (4.5-5.3) mg/dL AST (14-36) U/L Total Protein (6.3-8.2) g/dL Albumin (3.5-5.0) g/dL 10/03/21 10/03/21 10/03/21 Range/Units 04:45 04:45 04:45 WBC 31.9 H (3.8-10.6) k/uL RBC 3.74 L (3.80-5.40) m/uL Hgb 11.1 L (11.4-16.0) gm/dL Plt Count 62 L (150-450) k/uL Neutrophils # (Manual) 29.90 H (1.3-7.7) k/uL Lymphocytes # (Manual) (1.0-4.8) k/uL Metamyelocytes # (Man) 0.32 H (0) k/uL PT 12.6 H (9.0-12.0) sec INR 1.2 H (<1.2) APTT 108.8 H* (22.0-30.0) sec ABG pO2 (83-108) mmHg ABG Total CO2 (19-24) mmol/L Sodium 134 L (137-145) mmol/L Chloride 97 L (98-107) mmol/L BUN 46 H (7-17) mg/dL Creatinine 3.52 H (0.52-1.04) mg/dL Glucose 163 H (74-99) mg/dL Calcium 5.5 L* (8.4-10.2) mg/dL Ionized Calcium Ashley (4.5-5.3) mg/dL AST 126 H (14-36) U/L Total Protein 4.0 L (6.3-8.2) g/dL Albumin 1.9 L (3.5-5.0) g/dL 10/03/21 10/03/21 Range/Units 05:05 05:45 WBC (3.8-10.6) k/uL RBC (3.80-5.40) m/uL Hgb (11.4-16.0) gm/dL Plt Count (150-450) k/uL Neutrophils # (Manual) (1.3-7.7) k/uL Lymphocytes # (Manual) (1.0-4.8) k/uL Metamyelocytes # (Man) (0) k/uL PT (9.0-12.0) sec INR (<1.2) APTT (22.0-30.0) sec ABG pO2 81 L (83-108) mmHg ABG Total CO2 25 H (19-24) mmol/L Sodium (137-145) mmol/L Chloride (98-107) mmol/L BUN (7-17) mg/dL Creatinine (0.52-1.04) mg/dL Glucose (74-99) mg/dL Calcium (8.4-10.2) mg/dL Ionized Calcium Ashley 3.0 L* (4.5-5.3) mg/dL AST (14-36) U/L Total Protein (6.3-8.2) g/dL Albumin (3.5-5.0) g/dL Microbiology - Last 24 Hours (Table) 09/30/21 23:56 Urine Culture - Final Urine,Voided
[2021-10-03] MEDS: METOCLOPRAMIDE 5 MG/ML 2 ML VIAL IVP SCH ×3 (14:31→23:42)
[2021-10-03 16:36] LABS: Albumin 1.6 g/dL (3.5-5.0); Potassium 3.7 mmol/L (3.5-5.1); Total Bilirubin 1.2 mg/dL (0.2-1.3); Total Protein 3.1 g/dL (6.3-8.2)
[2021-10-03 16:51] LABS: Calcium 5.3 mg/dL (8.4-10.2)
--- NOTE | 2021-10-03 17:59 | P.PN ---
Subjective Principal diagnosis: Patient remains intubated Despite being treated with 1 g of amiodarone she went into atrial fibrillation but her rates are controlled She is still on pressors With heparin platelets dropped and for the prescription was discontinued Currently amiodarone is on hold she is rate controlled Continue management of sepsis and postsurgical management per ICU team and Gen. surgery Objective - Vital Signs Vital signs: Vital Signs Temp 98.7 F 10/03/21 09:00 Pulse 102 H 10/03/21 16:30 Resp 23 10/03/21 16:30 BP 115/88 10/03/21 16:30 Pulse Ox 93 L 10/03/21 16:30 Intake & Output 10/02/21 10/03/21 10/03/21 18:59 06:59 18:59 Intake Total 2243.333 2478.364 524.157 Output Total 280 255 410 Balance 7017.819 4671.364 114.157 Weight 64.6 kg Intake: IV 2086 2136 153 Calcium Gluconate 2 gm In 100 Sodium Chloride 0.9% 100 ml @ 100 mls/hr IVPB ONCE ONE Rx#:[id number] Dextrose 5% in Water 1, 1650 1800 150 000 ml @ 150 mls/hr IV . Q7H40M [facility] with Sodium Bicarb (1 Meq/ml) 150 ml Rx#:[id number] Piperacillin-Tazobactam 3 100 100 .375 gm In Sodium Chloride 0.9% 100 ml @ 25 mls/hr IVPB Q12H [facility] Rx# :[id number] Pressure Bag 36 36 3 metroNIDAZOLE-NS PMX 500 200 200 mg In Saline 1 100ml.bag @ 100 mls/hr IVPB Q6H [facility] Rx#:[id number] Intake, IV Titration 157.333 342.364 371.157 Amount Amiodarone 360 mg In 138.888 Dextrose 5% in Water 200 ml @ 1 MG/MIN 33.333 mls/ hr IV .Q6H [facility] Rx#: [id number] Amiodarone 450 mg In 90.557 Dextrose 5% in Water 250 ml @ 1 MG/MIN 33.333 mls/ hr IV .Q7H30M [facility] Rx#: [id number] Heparin Sod,Pork in 0.45% 35.277 NaCl 25,000 unit In 0.45 % NaCl 1 250ml.bag @ 12 UNITS/KG/HR 7.032 mls/hr IV .Q24H [facility] Rx#: [id number] Norepinephrine 32 mg In 94.679 116.530 106.820 Sodium Chloride 0.9% 218 ml @ 0.05 MCG/KG/MIN 1. 329 mls/hr IV .Q24H [facility] Rx#:[id number] propofoL 1,000 mg In 62.654 100 125.449 Empty Bag 1 bag @ Titrate IV .Q0M [facility] Rx#: [id number] Output: Gastric Drainage 150 Urine 130 255 410 Other: Voiding Method Indwelling Catheter Indwelling Catheter Indwelling Catheter ABP, PAP, CO, CI - Last Documented Arterial Blood Pressure 103/54 - Labs CBC & Chem 7: 10/03/21 04:45 10/03/21 16:18 Labs: Abnormal Lab Results - Last 24 Hours (Table) 10/02/21 10/02/21 10/02/21 Range/Units 05:20 22:25 22:25 WBC 29.7 H (3.8-10.6) k/uL RBC 3.68 L (3.80-5.40) m/uL Hgb 11.1 L (11.4-16.0) gm/dL Plt Count 76 L (150-450) k/uL Neutrophils # (Manual) 28.20 H (1.3-7.7) k/uL Lymphocytes # (Manual) 0.59 L (1.0-4.8) k/uL Metamyelocytes # (Man) (0) k/uL PT 16.2 H (9.0-12.0) sec INR 1.6 H (<1.2) APTT >200.0 H* (22.0-30.0) sec ABG pO2 (83-108) mmHg ABG Total CO2 (19-24) mmol/L Sodium (137-145) mmol/L Chloride (98-107) mmol/L BUN (7-17) mg/dL Creatinine (0.52-1.04) mg/dL Glucose (74-99) mg/dL Calcium (8.4-10.2) mg/dL Ionized Calcium Ashley (4.5-5.3) mg/dL AST (14-36) U/L Total Protein (6.3-8.2) g/dL Albumin (3.5-5.0) g/dL Cyclosporine 52 L (100-400) ng/mL 10/02/21 10/03/21 10/03/21 Range/Units 23:55 04:45 04:45 WBC 31.9 H (3.8-10.6) k/uL RBC 3.74 L (3.80-5.40) m/uL Hgb 11.1 L (11.4-16.0) gm/dL Plt Count 62 L (150-450) k/uL Neutrophils # (Manual) 29.90 H (1.3-7.7) k/uL Lymphocytes # (Manual) (1.0-4.8) k/uL Metamyelocytes # (Man) 0.32 H (0) k/uL PT (9.0-12.0) sec INR (<1.2) APTT 175.3 H* (22.0-30.0) sec ABG pO2 (83-108) mmHg ABG Total CO2 (19-24) mmol/L Sodium 134 L (137-145) mmol/L Chloride 97 L (98-107) mmol/L BUN 46 H (7-17) mg/dL Creatinine 3.52 H (0.52-1.04) mg/dL Glucose 163 H (74-99) mg/dL Calcium 5.5 L* (8.4-10.2) mg/dL Ionized Calcium Ashley (4.5-5.3) mg/dL AST 126 H (14-36) U/L Total Protein 4.0 L (6.3-8.2) g/dL Albumin 1.9 L (3.5-5.0) g/dL Cyclosporine (100-400) ng/mL 10/03/21 10/03/21 10/03/21 Range/Units 04:45 05:05 05:45 WBC (3.8-10.6) k/uL RBC (3.80-5.40) m/uL Hgb (11.4-16.0) gm/dL Plt Count (150-450) k/uL Neutrophils # (Manual) (1.3-7.7) k/uL Lymphocytes # (Manual) (1.0-4.8) k/uL Metamyelocytes # (Man) (0) k/uL PT 12.6 H (9.0-12.0) sec INR 1.2 H (<1.2) APTT 108.8 H* (22.0-30.0) sec ABG pO2 81 L (83-108) mmHg ABG Total CO2 25 H (19-24) mmol/L Sodium (137-145) mmol/L Chloride (98-107) mmol/L BUN (7-17) mg/dL Creatinine (0.52-1.04) mg/dL Glucose (74-99) mg/dL Calcium (8.4-10.2) mg/dL Ionized Calcium Ashley 3.0 L* (4.5-5.3) mg/dL AST (14-36) U/L Total Protein (6.3-8.2) g/dL Albumin (3.5-5.0) g/dL Cyclosporine (100-400) ng/mL 10/03/21 Range/Units 16:18 WBC (3.8-10.6) k/uL RBC (3.80-5.40) m/uL Hgb (11.4-16.0) gm/dL Plt Count (150-450) k/uL Neutrophils # (Manual) (1.3-7.7) k/uL Lymphocytes # (Manual) (1.0-4.8) k/uL Metamyelocytes # (Man) (0) k/uL PT (9.0-12.0) sec INR (<1.2) APTT (22.0-30.0) sec ABG pO2 (83-108) mmHg ABG Total CO2 (19-24) mmol/L Sodium 132 L (137-145) mmol/L Chloride 94 L (98-107) mmol/L BUN 48 H (7-17) mg/dL Creatinine 3.24 H (0.52-1.04) mg/dL Glucose 160 H (74-99) mg/dL Calcium 5.3 L* (8.4-10.2) mg/dL Ionized Calcium Ashley (4.5-5.3) mg/dL AST 126 H (14-36) U/L Total Protein 3.1 L (6.3-8.2) g/dL Albumin 1.6 L (3.5-5.0) g/dL Cyclosporine (100-400) ng/mL Microbiology - Last 24 Hours (Table) 10/02/21 10:51 Blood Culture - Preliminary Blood No Growth after 24 hours 10/02/21 10:30 Blood Culture - Preliminary Blood No Growth after 24 hours 09/30/21 23:56 Urine Culture - Final Urine,Voided
--- NOTE | 2021-10-03 18:22 | PN ---
PROGRESS NOTE DATE OF SERVICE: 10/03/2021 REASON FOR FOLLOWUP: 1. peritonitis from perforated sigmoid diverticulitis. 2. COVID-19 infection. INTERVAL HISTORY: The patient is afebrile. The patient is currently hemodynamically stable. The patient remains intubated on the vent. FiO2 is currently 40%. No significant purulent secretions through the ET, diarrhea or any other changes reported by the nursing staff. PHYSICAL EXAMINATION: Blood pressure 115/88 with a pulse of 102, temperature 98. She is 93% on 40% FiO2. General description is an elderly female lying in bed in no distress. Respiratory system: Unlabored breathing, decreased breath sounds at the base. No wheeze. Heart S1, S2. Regular rate and rhythm. Abdomen soft, no tenderness. LABS: Hemoglobin is 11.5, white count .9, creatinine 3.52. DIAGNOSTIC IMPRESSION AND PLAN: 1. Patient with peritonitis from perforated sigmoid colon, status post laparotomy, sigmoid colectomy and diverting colostomy. Patient is covered with Zosyn; to continue. 2. Patient with elevated white count, more likely steroid effect. Will monitor closely. Continue supportive care. MMODL / IJN: [id number] /
[2021-10-04] MEDS: metroNIDAZOLE-NS PMX 500 MG in SALINE 1 100ML.BAG IVPB SCH ×4 (03:40→19:55)
[2021-10-04] MEDS: NOREPINEPHRINE 32 MG in SODIUM CHLORIDE 0.9% 218 ML IV SCH (03:41)
[2021-10-04 04:10] LABS: HCT 29.7 % (34.0-46.0); HGB 9.8 gm/dL (11.4-16.0); MCH 30.3 pg (25.0-35.0); MCHC 32.9 g/dL (31.0-37.0); MCV 91.9 fL (80.0-100.0); Mean Platelet Volume 13.7; RBC 3.23 m/uL (3.80-5.40); RDW 14.6 % (11.5-15.5); WBC 28.5 k/uL (3.8-10.6)
[2021-10-04 04:25] LABS: Albumin 1.6 g/dL (3.5-5.0); Potassium 2.9 mmol/L (3.5-5.1); Total Bilirubin 1.1 mg/dL (0.2-1.3)
[2021-10-04 04:27] LABS: Platelet Count 50 k/uL (150-450)
[2021-10-04 04:34] LABS: Calcium 5.8 mg/dL (8.4-10.2)
[2021-10-04] MEDS ORDERED: CALCIUM GLUCONATE 2 GM in SODIUM CHLORIDE 0.9% 100 ML IVPB ONE ×2 (05:02→11:00)
[2021-10-04 05:12] LABS: Glucose,Whole Blood 216 mg/dL (75-99)
[2021-10-04] MEDS: INSULIN ASPART (NovoLOG) 100 UNIT/ML VIAL SQ SCH ×3 (05:29→17:39)
[2021-10-04] MEDS: METOCLOPRAMIDE 5 MG/ML 2 ML VIAL IVP SCH (05:29)
[2021-10-04 05:44] LABS: ABG Base Excess 7.9 mmol/L; ABG HCO3 31 mmol/L (21-25); ABG Oxygen Saturation 97.4 % (94-97); ABG PCO2 38 mmHg (35-45); ABG PH 7.52 (7.35-7.45); ABG PO2 85 mmHg (83-108); ABG TCO2 32 mmol/L (19-24); Allen Test Performed? Yes
[2021-10-04] MEDS: POTASSIUM CHLORIDE 20 MEQ in WATER FOR INJECTION 1 100ML.BAG IVPB SCH ×3 (05:47→09:56)
[2021-10-04] MEDS: DEXTROSE 5% IN WATER 1,000 ML with SODIUM BICARB (1 MEQ/ML) 150 ML IV SCH (05:54)
[2021-10-04 06:06] LABS: Band Neutrophils % 7 %; Lymphocytes # (M) 0.29 k/uL (1.0-4.8); Monocytes # (M) 0.57 k/uL (0-1.0); Neutrophils % (M) 91 %; Nucleated Red Blood Cells 0 /100 WBC (0-0); Total Cells Counted 200
[2021-10-04 06:09] LABS: Poikilocytosis (M) Present
--- NOTE | 2021-10-04 08:00 | P.PN ---
Subjective Progress Note Date: 10/04/21 81-year-old female patient who presented to the burst department because of an abdominal pain. The patient was found to have free air in the abdomen. A CAT scan of the abdomen was done and the patient was found to have pneumoperitoneum. The patient denied having any fever at home. She did have abdominal pain and nausea. His abdominal pain was of a sudden onset and it occurs at home. No history of any peptic ulcer disease. No history of any inflammatory bowel disease. She is known to have paroxysmal atrial fibrillation and she has been involved in a previous TIA and the patient was treated anticoagulation with Eliquis. 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 Note that her current transplant kidney is the second chest elevation of the patient had. This was given to her back in 2017 at [facility]. During this current admission, the patient had no fevers or chills. She had severe abdominal pain. CAT scan of the abdomen was done in the emergency department and the patient was found to have evidence of moderate size pneumoperitoneum. There was moderate ascites. There was evidence of small bowel wall thickening and mild dilatation and edema of the mesentery consider mesenteric ischemia. She also had a some left lower lobe atelectatic change and cardiomegaly. There was a left-sided pelvic cystic mass. Neurosurgery was consulted and the patient will be taken to the operating room. In the emergency, the patient was intubated and placed on a mechanical ventilator. She was given 3-1/2 L of normal saline. She was started on pressors and the patient is on norepinephrine infusion chronic at 0.5 mcg/kg per minute. Lactic acid level was as high as 12 and currently has improved down to 3.9. Her white cell count is currently at 6.8 with a hemoglobin of 12.7 and platelet coun t of 245. She is currently on a mechanical ventilator on assist control mode at the rate of 26, tidal volume of 300 with an FiO2 of 40% and a PEEP of 5. The pH is 7.34 with a pCO2 of 35 and pO2 is at 83. The patient was given IV Unasyn in the emergency department. General surgeries on the case. The patient will be taken to the operating room. Electrolyte are normal. Reyes catheter has been inserted. She has chronic kidney disease in the creatinine is at 1.8. UA is also abnormal and shows + protein, there are several WBCs consistent for an underlying infection. The current cardiac rhythm is atrial fibrillation with a controlled rate and the patient has frequent 10/02/2021, the patient is postop day #1 the patient was taken to the operating room for an acute pneumoperitoneum an acute abdomen yesterday. The surgery was done and the patient intraoperatively was found to have perforated sigmoid colon. The surgery included exploratory laparotomy, and the patient underwent a sigmoid colectomy and diverting colostomy. Estimated blood loss was around 100 mL. Postop, the patient was kept intubated on a mechanical ventilator and the patient was brought into the ICU for further care. This morning, the patient remains sedated. She is currently on propofol which is running at 25 mL an hour. She is well sedated for now. She is on no paralytics. She remains on a mechanical ventilator. Currently she is on assist control mode of mechanical ventilation and she is currently on assist control of 26, tidal volume of 300, FiO2 of 40% with a PEEP of 5. The morning blood. This showed a pH of 7.25 with a pCO2 of 31 and pO2 of 91. The patient had a chest x-ray today that showed adequate positioning of the orotracheal tube. The patient also has a orogastric tube in place. No evidence of any pneumothorax. The lungs are adequately expanded bilaterally. There is adequate positioning of the a orogastric tube. There is some atelectatic changes in the left lung base. The patient also has a triple-lumen catheter in the right IJ. There is some basilar atelectasis and p ossible effusion the left lung base. Hemodynamically, the patient is still receiving IV fluids. IV fluids are in the form of bicarb infusion at the rate of 75 mL an hour and the rate will be increased up to 150 mL an hour. Patient is also on norepinephrine running at 0.52 mcg/kg per minute. Urine output is in order of 100 mL over the past 12 hours. Overall fluid balance is +2.7 L over the past 24 hours. Meanwhile, the patient's white cell count is at 24.6. Hemoglobin is at 12.6. The serum bicarbonate of 11. Sodium is 136, BUN is a 38 with a creatinine of 3.04 consistent with an acute on top of a chronic kidney disease. Calcium level is down to 5.9 and this needs to be replaced. The patient also had the incidental finding of COVID 19 being positive. Antibiotic coverage includes a combination of Zosyn and Flagyl for now. She has a arterial line catheter. No other significant events otherwise for now. Cultures have been all negative thus far. The patient's cardiac rhythm is atrial fibrillation. Her rate is controlled for now. No anticoagulants for now. No other medication for rate control for now. The patient remains on stress dose hydrocortisone. 10/03 2021, the patient is postop day #2 or neck. Abdomen and pneumoperitoneum and the patient underwent a sigmoid resection with a diverting colostomy. The patient is currently on postop day #2. The patient remains hypotensive, the patient remains septic. The patient requires higher doses of pressors. The patient has also developed an acute on top of chronic kidney failure and this occurred on top of her chronically transplanted kidney. The patient remains intubated on a mechanical ventilator. This morning, the patient is sedated with propofol and propofol is running at 25 mcg/kg per minute which is the same as yesterday and she's been adequately sedated. She is on a mechanical ventilator within assist-control mode and a tidal volume of 300 with a rate of 26 and an FiO2 of 4040% with a PEEP of 5. The blood gas was noted from this morning and showed a pH of 7.45 with a pCO2 of 35 and a pO2 of 80. The chest x-ray from today is showing some limited atelectatic changes and left lung base. The lungs are clear and there is no consolidation or infiltrate. Orotracheal tube remains in a good location. Hemodynamically, the patient remains on IV fluids. The patient is receiving bicarb infusion at the rate of 150 mL an hour. Urine output is in order of 30 or 40 mL an hour and the urine output is essentially improving. Serum bicarbonate currently is at 22 and her acidosis is also improved. Meanwhile, the patient continues to be on pressors. The patient is on norepinephrine infusion which is running at 0.4 to microvascular kilogram per minute. Cultures are all negative thus far. The white cell count from today is at 31.9 and it remains quite elevated. Note that the patient's pro calcitonin level was considerably elevated at a time of admission. Another active issue is development of an acute kidney injury on top of her chronic kidney disease. Noted the patient has history of FSGS and she came in to us with a creatinine of 1. his baseline. During her postoperative course and sepsis, the patient developed an acute kidney injury. Her creatinine today is at 3.52. Nephrology has been on consult. Nephrology has opted to stop the immunosuppressive agents which I agree to as the patient is currently hypotensive and septic. On a separate note, the patient do not to be positive for: 19. Despite that, she is not having any significant respiratory issues and the chest x-ray remains currently intact and stable. In terms of her cardiac rhythm, the patient remains in atrial fibrillation. Rate is controlled for now. She was started on amiodarone drip by cardiology. She was also started on IV heparin. The PTT is supratherapeutic at this point in time and I would suggest discontinuing the IV heparin for now and monitoring her coagulation profile. As far as the am iodarone drip, this can be also discontinued knowing that a heart rate between 101 120 is acceptable on this patient. Calcium level has been quite low and ionized calcium has dropped. I give the patient total of 2 g of calcium yesterday and she'll be given another 2 g today and we'll going to monitor calcium level. Her serum albumin is low. Nevertheless, the ionized calcium is also low. Her platelet counts have also dropped probably related to consumption due to her underlying sepsis. Her current antibiotic coverage is a combination of Zosyn and Flagyl. 10/04/2021, the patient is postop day #3. The patient remains intubated on a mechanical ventilator. Note that the patient was quite hypotensive and septic postop and the patient was requiring considerable amount of pressors and the patient also developed an acute on top of her chronic kidney disease knowing that she has a transplanted kidney and she does have some background chronic renal insufficiency. This morning, the patient remains sedated and the patient is currently on propofol, running at 25 mcg/kg per minute and this is the same level of sedation that was offered to this patient yesterday. The patient remains on a mechanical ventilator, assist control mode, tidal volumes at 300 with a rate of 26 and FiO2 is currently at 40% with a PEEP of 5. Blood gases from today shows a pH of 7.51 with a pCO2 of 38 and pO2 of 85. The chest x-ray from today is showing no significant acute abnormalities. The patient has some atelectatic change in the left lung base. The right lung essentially clear. ET tube remains in excellent location. There may be some increased pulmonary vascular markings perihilar the and in the lower lobes bilaterally. In terms of hemodynamics, the patient remains on IV fluids and currently she is on bicarb infusion at the rate of 150 mL an hour. The patient's blood work shows a serum bicarb level of 26. Sodium is at 131 with a potassium level of 2.9. Renal function stable and the patient has a BUN of 49 with a creatinine of 3.2. We continued to have ongoing problems with hypocalcemia Calcium level including total and ionized have been low. The patient received a total of 4 g of IV calcium yesterday and an additional 2 g was given this morning. The morning calcium level higher to her receiving the last 2 g was at 5.8 total. The patient remains on pressors. The patient is currently on norepinephrine at the rate of 0.13 microvascular kilogram per minute. The patient is also on vasopressin physiologic dose. She remains on stress dose hydrocortisone. Her cardiac rhythm is atrial fibrillation. The patient was taken off the IV amiodarone yesterday. The patient was also having supratherapeutic PTT. The IV heparin is off for now. The patient remains on IV Zosyn and Flagyl as a broad- spectrum antibiotics coverage. The cultures of been all negative thus far. Echo of the heart showed a preserved LV function with an EF of around 55-60%. On today's evaluation, the patient's colostomy is functional and he put out approximately 300 mL of liquid material. Surgical wound site is dry clean and intact. Abdominal bowel sounds are hypoactive at the present. Objective - Vital Signs Vital signs: Vital Signs Temp 98.7 F 10/04/21 04:00 Pulse 106 H 10/04/21 05:00 Resp 26 H 10/04/21 05:00 BP 133/73 10/04/21 05:00 Pulse Ox 96 10/04/21 05:00 Intake & Output 10/03/21 10/04/21 10/04/21 18:59 06:59 18:59 Intake Total 233.756 6691.811 Output Total 460 910 Balance 548.788 7941.811 Intake: IV 453 2030 Dextrose 5% in Water 1, 450 1800 000 ml @ 150 mls/hr IV . Q7H40M DILCIA with Sodium Bicarb (1 Meq/ml) 150 ml Rx#:[id number] Piperacillin-Tazobactam 3 100 .375 gm In Sodium Chloride 0.9% 100 ml @ 25 mls/hr IVPB Q12H [facility] Rx# :[id number] Pressure Bag 3 30 metroNIDAZOLE-NS PMX 500 100 mg In Saline 1 100ml.bag @ 100 mls/hr IVPB Q6H [facility] Rx#:[id number] Intake, IV Titration 381.234 159.811 Amount Amiodarone 360 mg In 138.888 Dextrose 5% in Water 200 ml @ 1 MG/MIN 33.333 mls/ hr IV .Q6H ONE Rx#: [id number] Norepinephrine 32 mg In 116.897 59.196 Sodium Chloride 0.9% 218 ml @ 0.05 MCG/KG/MIN 1. 329 mls/hr IV .Q24H [facility] Rx#:[id number] propofoL 1,000 mg In 125.449 100.615 Empty Bag 1 bag @ Titrate IV .Q0M [facility] Rx#: [id number] Output: Urine 460 360 Stool 550 Other: Voiding Method Indwelling Catheter Indwelling Catheter # Voids 1 ABP, PAP, CO, CI - Last Documented Arterial Blood Pressure 106/58 - Exam The patient is currently sedated and the patient is currently on propofol running at 25 mcg/kg per minute. She is on a mechanical ventilator. She is intubated. Orogastric and orotracheal tube are both in place. Output from the OG is minimal at this point in time. Head exam was generally normal. There was no scleral icterus or corneal arcus. Mucous membranes were moist. Neck was supple and without jugular venous distension, thyromegaly, or carotid bruits. Carotids were easily palpable bilaterally. There was no adenopathy. The patient has a right IJ triple-lumen catheter in place. Cardiac exam revealed the PMI to be normally situated and sized. The rhythm is irregular consistent with atrial fibrillation and the patient has extrasystoles that were were noted during several minutes of auscultation. The first and second heart sounds were normal and physiologic splitting of the second heart sound was noted. There were no murmurs, rubs, clicks, or gallops. Lungs were clear to auscultation and percussion, and with normal diaphragmatic excursion. No wheezes or rales were noted. Examination of the abdomen shows some mild abdominal distention. She has a with abdominal wounds. No significant output in her colostomy bag. No direct tenderness. No rebound tenderness. No guarding. Organs cannot be palpated. The patient has scars of previous kidney chest mentation over the anterior abdominal wall. The patient has a functional colostomy. There is a total of 300 mL of liquid material accumulating. Bowel sounds are still hypoactive. Surgical wound site is dry clean and intact. No evidence of any wound dehiscence. No evidence of any wound infection. No drains. Examination of the extremities revealed easily palpable radial, femoral and ped al pulses. There was no cyanosis, clubbing or edema. Examination of the skin revealed no evidence of significant rashes, suspicious appearing nevi or other concerning lesions. Neurologically the patient sedated for now. - Labs CBC & Chem 7: 10/04/21 03:47 10/04/21 03:47 Labs: Abnormal Lab Results - Last 24 Hours (Table) 10/02/21 10/03/21 10/03/21 Range/Units 05:20 05:45 16:18 WBC (3.8-10.6) k/uL RBC (3.80-5.40) m/uL Hgb (11.4-16.0) gm/dL Hct (34.0-46.0) % Plt Count (150-450) k/uL Neutrophils # (Manual) (1.3-7.7) k/uL Lymphocytes # (Manual) (1.0-4.8) k/uL ABG pH (7.35-7.45) ABG HCO3 (21-25) mmol/L ABG Total CO2 (19-24) mmol/L ABG O2 Saturation (94-97) % Sodium 132 L (137-145) mmol/L Potassium (3.5-5.1) mmol/L Chloride 94 L (98-107) mmol/L BUN 48 H (7-17) mg/dL Creatinine 3.24 H (0.52-1.04) mg/dL Glucose 160 H (74-99) mg/dL POC Glucose (mg/dL) (75-99) mg/dL Calcium 5.3 L* (8.4-10.2) mg/dL Ionized Calcium Ashley 3.0 L* (4.5-5.3) mg/dL AST 126 H (14-36) U/L Total Protein 3.1 L (6.3-8.2) g/dL Albumin 1.6 L (3.5-5.0) g/dL Cyclosporine 52 L (100-400) ng/mL 10/03/21 10/04/21 10/04/21 Range/Units 20:00 03:47 03:47 WBC 28.5 H (3.8-10.6) k/uL RBC 3.23 L (3.80-5.40) m/uL Hgb 9.8 L (11.4-16.0) gm/dL Hct 29.7 L (34.0-46.0) % Plt Count 50 L (150-450) k/uL Neutrophils # (Manual) 27.90 H (1.3-7.7) k/uL Lymphocytes # (Manual) 0.29 L (1.0-4.8) k/uL ABG pH (7.35-7.45) ABG HCO3 (21-25) mmol/L ABG Total CO2 (19-24) mmol/L ABG O2 Saturation (94-97) % Sodium 131 L (137-145) mmol/L Potassium 2.9 L (3.5-5.1) mmol/L Chloride 89 L (98-107) mmol/L BUN 49 H (7-17) mg/dL Creatinine 3.21 H (0.52-1.04) mg/dL Glucose 188 H (74-99) mg/dL POC Glucose (mg/dL) (75-99) mg/dL Calcium 5.9 L* 5.8 L* (8.4-10.2) mg/dL Ionized Calcium Ashley (4.5-5.3) mg/dL AST 108 H (14-36) U/L Total Protein 3.0 L (6.3-8.2) g/dL Albumin 1.6 L (3.5-5.0) g/dL Cyclosporine (100-400) ng/mL 10/04/21 10/04/21 Range/Units 05:11 05:40 WBC (3.8-10.6) k/uL RBC (3.80-5.40) m/uL Hgb (11.4-16.0) gm/dL Hct (34.0-46.0) % Plt Count (150-450) k/uL Neutrophils # (Manual) (1.3-7.7) k/uL Lymphocytes # (Manual) (1.0-4.8) k/uL ABG pH 7.52 H (7.35-7.45) ABG HCO3 31 H (21-25) mmol/L ABG Total CO2 32 H (19-24) mmol/L ABG O2 Saturation 97.4 H (94-97) % Sodium (137-145) mmol/L Potassium (3.5-5.1) mmol/L Chloride (98-107) mmol/L BUN (7-17) mg/dL Creatinine (0.52-1.04) mg/dL Glucose (74-99) mg/dL POC Glucose (mg/dL) 216 H (75-99) mg/dL Calcium (8.4-10.2) mg/dL Ionized Calcium Ashley (4.5-5.3) mg/dL AST (14-36) U/L Total Protein (6.3-8.2) g/dL Albumin (3.5-5.0) g/dL Cyclosporine (100-400) ng/mL Microbiology - Last 24 Hours (Table) 10/02/21 10:51 Blood Culture - Preliminary Blood No Growth after 24 hours 10/02/21 10:30 Blood Culture - Preliminary Blood No Growth after 24 hours Assessment and Plan Plan: 1 acute pneumoperitoneum. The patient was found to have an acute perforated sigmoid colon. The patient underwent colectomy and diverting colostomy and the patient is currently postop day #3 . Patient continues to be hypotensive in shock state related to postoperative sepsis. The patient remains in atrial fibrillation. The patient has developed an acute on top of her chronic kidney injury. She is covered with broad-spectrum antibiotics patient remains intubated on a mechanical ventilator. This morning, the patient is requiring less of a pressors. There is positive output in her colostomy bag. Renal function is stable. She has improved. She is not ready to be weaned off the mechanical ventilator yet. 2 acute hypoxic respiratory failure secondary to above, currently intubated on a mechanical ventilator. 3 septic shock in the setting of an acute abdomen and pneumoperitoneum. The patient is currently on a combination of fluids and pressors and antibiotics. Pressors are running in the form of norepinephrine infusion at 0.1 mg/kg per minute. 4 acute lactic acidosis, improving. The patient remains on a bicarb infusion for now. The metabolic acidosis currently improving. The serum bicarb is improved considerably. 5 history of kidney transplantation maintained on immunosuppressive agents including a combination of CellCept, cyclosporine and prednisone 6 acute on top of chronic kidney disease , creatinine is on the rise and the patient is currently off immunosuppressive agents, creatinine is stable on today's evaluation 7 history of FSGS requiring transfer patient 2 in the most recent chest elevation was done in 2006 8 history of chronic atrial fibrillation with a previous history of TIA, maintained on long-term and to coagulation with Eliquis, the rate control and the patient was given a combination of IV heparin and IV amiodarone. Both of these infusions have been discontinued and the patient can be started on oral anticoagulation once cleared by general surgery 9 history of fibrocystic breast disease along with lobular carcinoma in situ of the breast followed up by general surgery 10 history of hypertension 11 history of hyperlipidemia 12 history of chronic back pain along with osteoporosis and the patient walks around with the help of a cane 13 COVID 19 positive, incidental finding and there is some minimal increase in pulmonary infiltrates in lung bases bilaterally. This could be atelectasis/fluid as the patient was aggressively resuscitated. Possibility of Coumadin to progression is also considered. Nevertheless, no significant change in her oxygenation at this point in time. 14 postoperative atelectatic changes in lung bases as evident on today's chest x-ray 15 acquired thrombocytopenia, stable for now and the patient was taken off the IV heparin 16 hypocalcemia, will be discussed with nephrology. Calcium level is being replaced. Check vitamin D, check intact PTH. PLAN: Continue ventilator support. No vent changes will be done for today. Discontinue the bicarb infusion and switch this patient to normal saline at the rate of 75 mL an hour continue pressors for now , she is on NE at 0.13 mcg/kg/min Continue Vaso physiologic dose Cover The patient with a combination of Zosyn and Flagyl Continue Stress dose hydrocortisone as the patient has been on prednisone on long-term basis and the patient will be given hydrocortisone 100 mg every 8 hours IV protonix Monitor plt count Eliquis 2.5 mg BID to be started today DC amiodarone Monitor platelets echocardiogram showed preserved left ventricular systolic function with ejection fraction 55-60% We'll continue with pressors for now, wean off if possible today Urine cultures and blood cultures pending Nephrology consulted regarding her kidney transplantation Off Immunosuppression Possible enteral feeding today and this will be discussed with the Gen surgery i-pth and vit d3 level replace calcium Monitor ionized Ca Check Mg Condition is critical we'll continue to follow and make further recommendations based on her progress. Critical care time 34 minutes Time with Patient: Greater than 30
[2021-10-04] MEDS: HYDROCORTISONE SUCCINATE 100 MG/2 ML VIAL IV SCH ×2 (08:06→16:46)
[2021-10-04] MEDS: SODIUM CHLORIDE 0.9% 1,000 ML IV SCH ×2 (08:06→20:05)
[2021-10-04] MEDS: PIPERACILLIN-TAZOBACTAM 3.375 GM in SODIUM CHLORIDE 0.9% 100 ML IVPB SCH ×2 (08:44→19:55)
[2021-10-04] MEDS: PANTOPRAZOLE 40 MG/10 ML VIAL IV SCH (08:44)
[2021-10-04] MEDS: CHLORHEXIDINE GLUCONATE 15 ML CUP MUCOUS MEM SCH ×2 (08:44→19:55)
--- NOTE | 2021-10-04 08:57 | XR ---
EXAMINATION TYPE: XR chest 1V portable DATE OF EXAM: 10/04/2021 COMPARISON: 10/03/2021 HISTORY: Tube placement TECHNIQUE: Single frontal view of the chest is obtained. FINDINGS: ET tube tip 3.0 cm from the tri. NG tube sidehole at the GE junction level. Consider fu rther advancement by 4 cm into the stomach. Anterior midline skin akua in the visualized upper abd omen. There is retrocardiac and left basilar opacity remains. Mild interstitial density at the right base. Heart upper limits of normal in size. Atherosclerotic arch calcifications. Right IJ CVC tip in the lower right atrium. IMPRESSION: Stable bilateral infiltrate and pleural effusion. Correlate for pneumonia or CHF
[2021-10-04 09:42] LABS: Ionized Calcium 3.5 mg/dL (4.5-5.3)
[2021-10-04 09:49] LABS: Magnesium 1.5 mg/dL (1.6-2.3)
[2021-10-04] MEDS: SODIUM CHLORIDE 0.9% 150 ML with VASOPRESSIN 60 UNIT IV SCH ×2 (09:56)
[2021-10-04] MEDS: APIXABAN 2.5 MG TABLET PO SCH ×2 (11:37→19:55)
[2021-10-04] MEDS: MAGNESIUM SULFATE-D5W PMX 1 GM in DEXTROSE/WATER 1 100ML.BAG IVPB SCH ×2 (11:37→13:11)
[2021-10-04] MEDS: ERGOCALCIFEROL 1,250 MCG (50,000 IU) CAPSULE PO SCH (11:37)
[2021-10-04 11:56] LABS: Glucose,Whole Blood 119 mg/dL (75-99)
--- NOTE | 2021-10-04 13:26 | P.PN ---
Subjective Progress Note Date: 10/04/21 HISTORY OF PRESENT ILLNESS This is an 81-year-old pleasant female patient of Dr. Henao, with known history of hypertension, CK D stage III, paroxysmal atrial fibrillation admitted through the emergency room secondary to abdominal pain and found to have pneumoperitoneum. She has significant discomfort, accompanied by nausea, vomiting, no fever. She presented to emergency room with normal findings, in the CAT scan showing moderate pneumoperitoneum, with small bowel thickening, and mild dilatation saray a of the mesenteric considered for mesenteric ischemia there is a left-sided pelvic cystic mass. Chest x-ray shows atelectasis, She is hypotensive, when seen, lactic acid level is high at 12, she was having difficulty of breathing with tachypnea, hence she was preemptively intubated in the emergency room,. She was placed on assist-control, rate of 26, FiO2 40%, PEEP of 5 at the volume of 300. She was sent ICU for stabilization requiring norepinephrine infusion at 0.5 mcg/kg/m for hypotension and septic shock, she received 3.5 L of normal saline for which she is now undergoing exploratory laparotomy. Consult was made with Dr. Price surgeon, and Dr. Nino, critical care ICU physician incidentally, she was tested confirmed Covid positive, on October 0110/02: Patient is seen today in the intensive care unit, remains intubated and on mechanical ventilation with tidal volume 300, FiO2 40 and PEEP of 5. Patient is currently on propofol, bicarb drip, amiodarone is being started for A. fib. Patient is on antibiotics the form of Zosyn and Flagyl. Repeat chest x-ray reveals basilar atelectasis, correlate to exclude pneumonia, possible effusion. Patient is followed by infectious disease, cardiology, advertising display rotator, nephrology, general surgery. Repeat blood work today reveals WBC 24.6, hemoglobin 12.1, platelet count 123. Sodium 136, potassium 4.5, chloride 109, CO2 11, BUN 38 creatinine 3.04. Calcium 5.9. AST 109. Patient remains in isolation for Covid 19. 10/03: Remains intubated on mechanical ventilation with tidal volume 300, FiO2 40, PEEP of 5. She has had very minimal amount output on ostomy. She has been on high-dose levo fed started on vasopressin as well and heparin drip is off due to elevated PTT. She has no output from her OG. Urine output has improved. 10/04: She remains intubated and on mechanical ventilation with tidal volume 300, FiO2 40 and PEEP of 5. Patient started having output from ostomy last evening, liquid brown approximate 950 ML's. Calcium is being replaced. She is still on low-dose norepinephrine and vasopressin as well as IV fluids. Anticipate she will start oral medications and feedings today. Chest x-ray reveals stable bilateral infiltrate and pleural effusion. REVIEW OF SYSTEMS ROS unobtainable: due to endotracheal tube PHYSICAL EXAMINATION Gen: This is an 81-year-old female, resting on the ICU bed and appears to be comfortable. ET and orogastric tube in place. HEENT: Head is atraumatic, normocephalic. Pupils equal, round. Sclerae is anicteric. NECK: Supple. No JVD. No lymphadenopathy. No thyromegaly. LUNGS: Clear to auscultation. No wheezes or rhonchi. No intercostal retractions. HEART: Regular rate and rhythm. No murmur. ABDOMEN: Soft. Mild abdominal distention. No tenderness. No output in colostomy bag. Reyes catheter is in place draining dark meir urine. EXTREMITIES: No pedal edema. No calf tenderness. NEUROLOGICAL: Patient is intubated. ASSESSMENT AND PLAN 1. Acute pneumoperitoneum, with peritonitis considered for small bowel perforation, underlying ischemic bowel, requiring mechanical intubation, on the emergency department. General surgery, is working on her exploratory laparotomy 10/01/2020. She has severe lactic acidosis, hypotension, septic shock. She is now requiring fluid resuscitations, 63.5 L at the emergency room, and is on pressors and IV antibiotics. Consult Dr. acharya and continue on Zosyn and Flagyl. Patient is on stress dose of hydrocortisone 100 mg every 8 hours. 2. Small bowel perforation suspected, with septic shock, explore lap on 09/2110/10/2021, IV Zosyn 3. Septic shock, IV antibiotics, with fluids w/o pressors 4. History of kidney transplantation, on immunosuppressive agent, CellCept and prednisone and cyclosporine 5. CKD, suspect stage III, 6. chronic atrial fibrillation, with prior TIA. Eliquis resumed on 10/04 7. Covid 19 infection, unknown infection time and onset of signs and symptoms, vaccination status not Determined, consult Dr. Acharya 8. Osteoporosis 9. Breast cancer, with lobular carcinoma in situ, had surgery for these activity unknown, 10. 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 Carmona. 11. Hypocalcemia. Continue to monitor and replace 12. Thrombocytopenia secondary to sepsis. Continue to monitor. 13. DVT prophylaxis GI prophylaxis Prognosis guarded CODE STATUS, full until specified Prognosis guarded. Impression and plan of care have been directed as dictated by the signing physician. Cierra Rodas nurse practitioner acting as scribe for signing physician. Objective - Vital Signs Vital signs: Vital Signs Temp 97.5 F L 10/04/21 08:00 Pulse 91 10/04/21 09:00 Resp 26 H 10/04/21 09:00 BP 120/72 10/04/21 09:00 Pulse Ox 95 10/04/21 09:00 Intake & Output 10/03/21 10/04/21 10/04/21 18:59 06:59 18:59 Intake Total 523.947 2493.811 395.250 Output Total 460 910 440 Balance 946.358 5708.811 -44.750 Intake: IV 453 2030 278 Dextrose 5% in Water 1, 450 1800 000 ml @ 150 mls/hr IV . Q7H40M [facility] with Sodium Bicarb (1 Meq/ml) 150 ml Rx#:[id number] Piperacillin-Tazobactam 3 100 100 .375 gm In Sodium Chloride 0.9% 100 ml @ 25 mls/hr IVPB Q12H [facility] Rx# :[id number] Pressure Bag 3 30 3 Sodium Chloride 0.9% 1, 75 000 ml @ 75 mls/hr IV . [id number] [facility] Rx#:[id number] metroNIDAZOLE-NS PMX 500 100 100 mg In Saline 1 100ml.bag @ 100 mls/hr IVPB Q6H [facility] Rx#:[id number] Intake, IV Titration 381.234 159.811 117.250 Amount Amiodarone 360 mg In 138.888 Dextrose 5% in Water 200 ml @ 1 MG/MIN 33.333 mls/ hr IV .Q6H [facility] Rx#: [id number] Norepinephrine 32 mg In 116.897 59.196 17.250 Sodium Chloride 0.9% 218 ml @ 0.05 MCG/KG/MIN 1. 329 mls/hr IV .Q24H [facility] Rx#:[id number] Potassium Chloride 20 meq 100 In Water For Injection 1 100ml.bag @ 50 mls/hr IVPB Q2H [facility] Rx#: [id number] propofoL 1,000 mg In 125.449 100.615 Empty Bag 1 bag @ Titrate IV .Q0M [facility] Rx#: [id number] Output: Urine 460 360 40 Stool 550 400 Other: Voiding Method Indwelling Catheter Indwelling Catheter Indwelling Catheter # Voids 1 ABP, PAP, CO, CI - Last Documented Arterial Blood Pressure 109/66 - Labs CBC & Chem 7: 10/04/21 03:47 10/04/21 03:47 Labs: Abnormal Lab Results - Last 24 Hours (Table) 10/02/21 10/03/21 10/03/21 Range/Units 05:20 16:18 20:00 WBC (3.8-10.6) k/uL RBC (3.80-5.40) m/uL Hgb (11.4-16.0) gm/dL Hct (34.0-46.0) % Plt Count (150-450) k/uL Neutrophils # (Manual) (1.3-7.7) k/uL Lymphocytes # (Manual) (1.0-4.8) k/uL ABG pH (7.35-7.45) ABG HCO3 (21-25) mmol/L ABG Total CO2 (19-24) mmol/L ABG O2 Saturation (94-97) % Sodium 132 L (137-145) mmol/L Potassium (3.5-5.1) mmol/L Chloride 94 L (98-107) mmol/L BUN 48 H (7-17) mg/dL Creatinine 3.24 H (0.52-1.04) mg/dL Glucose 160 H (74-99) mg/dL POC Glucose (mg/dL) (75-99) mg/dL Calcium 5.3 L* 5.9 L* (8.4-10.2) mg/dL AST 126 H (14-36) U/L Total Protein 3.1 L (6.3-8.2) g/dL Albumin 1.6 L (3.5-5.0) g/dL Cyclosporine 52 L (100-400) ng/mL 10/04/21 10/04/21 10/04/21 Range/Units 03:47 03:47 05:11 WBC 28.5 H (3.8-10.6) k/uL RBC 3.23 L (3.80-5.40) m/uL Hgb 9.8 L (11.4-16.0) gm/dL Hct 29.7 L (34.0-46.0) % Plt Count 50 L (150-450) k/uL Neutrophils # (Manual) 27.90 H (1.3-7.7) k/uL Lymphocytes # (Manual) 0.29 L (1.0-4.8) k/uL ABG pH (7.35-7.45) ABG HCO3 (21-25) mmol/L ABG Total CO2 (19-24) mmol/L ABG O2 Saturation (94-97) % Sodium 131 L (137-145) mmol/L Potassium 2.9 L (3.5-5.1) mmol/L Chloride 89 L (98-107) mmol/L BUN 49 H (7-17) mg/dL Creatinine 3.21 H (0.52-1.04) mg/dL Glucose 188 H (74-99) mg/dL POC Glucose (mg/dL) 216 H (75-99) mg/dL Calcium 5.8 L* (8.4-10.2) mg/dL AST 108 H (14-36) U/L Total Protein 3.0 L (6.3-8.2) g/dL Albumin 1.6 L (3.5-5.0) g/dL Cyclosporine (100-400) ng/mL 10/04/21 Range/Units 05:40 WBC (3.8-10.6) k/uL RBC (3.80-5.40) m/uL Hgb (11.4-16.0) gm/dL Hct (34.0-46.0) % Plt Count (150-450) k/uL Neutrophils # (Manual) (1.3-7.7) k/uL Lymphocytes # (Manual) (1.0-4.8) k/uL ABG pH 7.52 H (7.35-7.45) ABG HCO3 31 H (21-25) mmol/L ABG Total CO2 32 H (19-24) mmol/L ABG O2 Saturation 97.4 H (94-97) % Sodium (137-145) mmol/L Potassium (3.5-5.1) mmol/L Chloride (98-107) mmol/L BUN (7-17) mg/dL Creatinine (0.52-1.04) mg/dL Glucose (74-99) mg/dL POC Glucose (mg/dL) (75-99) mg/dL Calcium (8.4-10.2) mg/dL AST (14-36) U/L Total Protein (6.3-8.2) g/dL Albumin (3.5-5.0) g/dL Cyclosporine (100-400) ng/mL Microbiology - Last 24 Hours (Table) 10/02/21 10:51 Blood Culture - Preliminary Blood No Growth after 24 hours 10/02/21 10:30 Blood Culture - Preliminary Blood No Growth after 24 hours
--- NOTE | 2021-10-04 14:02 | P.PN ---
Subjective Progress Note Date: 10/04/21 CHIEF COMPLAINT: Abdominal pain HISTORY OF PRESENT ILLNESS: Patient is postop day #3 exploratory laparotomy, sigmoid colectomy with colostomy and right oophorectomy for perforated sigmoid colon. Patient is currently the ICU and intubated and sedated. They've been able to titrate down on patient's Levophed and vasopressin. Her urine output is starting to chart picker. Her ostomy is functioning. She had 950 ML stool out through her ostomy. She had small amount of bloody mucus BM from her rectum. Patient's potassium is being replaced. They've restarted her Eliquis. Afebrile. WBC count from 31.9-28.5 hemoglobin 11.1-9.8 platelets are 50 sodium 131 potassium 2.9 creatinine 2.1 ionized calcium 3.5 magnesium 1.5 Patient seen and examined with Dr. garcia PHYSICAL EXAM: VITAL SIGNS: Reviewed. GENERAL: Well-developed in no acute distress. HEENT: No sclera icterus. Extraocular movements grossly intact. Moist buccal mucosa. Head is atraumatic, normocephalic. ABDOMEN: Soft. Nondistended. Dressing clean dry and intact. Stool present in ostomy NEUROLOGIC: Intubated and sedated ASSESSMENT: 1. Perforated sigmoid colon status post exploratory laparotomy, sigmoid colectomy with colostomy and right oophorectomy 2. Acute hypoxic respiratory failure currently intubated and on mechanical ventilation 3. Septic shock due to perforated sigmoid colon 4. History of A. fib and TIA 5. COVID-19 positive, incidental finding 6. History of kidney transplant. Nephrology following 7. Acute kidney injury on chronic kidney disease 8. Thrombocytopenia PLAN: -Discontinue Reglan -Okay to start tube feedings via OG tube -Okay for oral medications -Okay to resume Eliquis -Continue to replace electrolytes -Continue ICU management -Continue supportive care -Continue IV fluids -Continue antibiotics -DVT prophylaxis SCDs and GI prophylaxis Protonix Physician [employer] Operator note has been reviewed by physician. Signing provider agrees with the documented findings, assessment, and plan of care. Objective - Vital Signs Vital signs: Vital Signs Temp 96.6 F L 10/04/21 12:00 Pulse 92 10/04/21 12:00 Resp 26 H 10/04/21 12:00 BP 110/62 10/04/21 12:00 Pulse Ox 93 L 10/04/21 12:00 Intake & Output 10/03/21 10/04/21 10/04/21 18:59 06:59 18:59 Intake Total 989.628 8888.811 972.971 Output Total 460 910 550 Balance 944.576 5554.811 422.971 Weight 64.5 kg Intake: IV 453 2030 512 Dextrose 5% in Water 1, 450 1800 000 ml @ 150 mls/hr IV . Q7H40M [facility] with Sodium Bicarb (1 Meq/ml) 150 ml Rx#:[id number] Piperacillin-Tazobactam 3 100 100 .375 gm In Sodium Chloride 0.9% 100 ml @ 25 mls/hr IVPB Q12H [facility] Rx# :[id number] Pressure Bag 3 30 12 Sodium Chloride 0.9% 1, 300 000 ml @ 75 mls/hr IV . [id number] [facility] Rx#:[id number] metroNIDAZOLE-NS PMX 500 100 100 mg In Saline 1 100ml.bag @ 100 mls/hr IVPB Q6H [facility] Rx#:[id number] Intake, IV Titration 381.234 159.811 420.971 Amount Amiodarone 360 mg In 138.888 Dextrose 5% in Water 200 ml @ 1 MG/MIN 33.333 mls/ hr IV .Q6H [facility] Rx#: [id number] Calcium Gluconate 2 gm In 100 Sodium Chloride 0.9% 100 ml @ 100 mls/hr IVPB [facility] Rx#:[id number] Norepinephrine 32 mg In 116.897 59.196 20.971 Sodium Chloride 0.9% 218 ml @ 0.05 MCG/KG/MIN 1. 329 mls/hr IV .Q24H [facility] Rx#:[id number] Potassium Chloride 20 meq 300 In Water For Injection 1 100ml.bag @ 50 mls/hr IVPB Q2H [facility] Rx#: [id number] propofoL 1,000 mg In 125.449 100.615 Empty Bag 1 bag @ Titrate IV .Q0M [facility] Rx#: [id number] Tube Feeding 10 Other 30 Output: Urine 460 360 150 Stool 550 400 Other: Voiding Method Indwelling Catheter Indwelling Catheter Indwelling Catheter # Voids 1 ABP, PAP, CO, CI - Last Documented Arterial Blood Pressure 111/66 - Labs CBC & Chem 7: 10/04/21 03:47 10/04/21 03:47 Labs: Abnormal Lab Results - Last 24 Hours (Table) 10/02/21 10/03/21 10/03/21 Range/Units 05:20 16:18 20:00 WBC (3.8-10.6) k/uL RBC (3.80-5.40) m/uL Hgb (11.4-16.0) gm/dL Hct (34.0-46.0) % Plt Count (150-450) k/uL Neutrophils # (Manual) (1.3-7.7) k/uL Lymphocytes # (Manual) (1.0-4.8) k/uL ABG pH (7.35-7.45) ABG HCO3 (21-25) mmol/L ABG Total CO2 (19-24) mmol/L ABG O2 Saturation (94-97) % Sodium 132 L (137-145) mmol/L Potassium (3.5-5.1) mmol/L Chloride 94 L (98-107) mmol/L BUN 48 H (7-17) mg/dL Creatinine 3.24 H (0.52-1.04) mg/dL Glucose 160 H (74-99) mg/dL POC Glucose (mg/dL) (75-99) mg/dL Calcium 5.3 L* 5.9 L* (8.4-10.2) mg/dL Ionized Calcium Ashley (4.5-5.3) mg/dL Magnesium (1.6-2.3) mg/dL AST 126 H (14-36) U/L Total Protein 3.1 L (6.3-8.2) g/dL Albumin 1.6 L (3.5-5.0) g/dL Cyclosporine 52 L (100-400) ng/mL 10/04/21 10/04/21 10/04/21 Range/Units 03:47 03:47 05:11 WBC 28.5 H (3.8-10.6) k/uL RBC 3.23 L (3.80-5.40) m/uL Hgb 9.8 L (11.4-16.0) gm/dL Hct 29.7 L (34.0-46.0) % Plt Count 50 L (150-450) k/uL Neutrophils # (Manual) 27.90 H (1.3-7.7) k/uL Lymphocytes # (Manual) 0.29 L (1.0-4.8) k/uL ABG pH (7.35-7.45) ABG HCO3 (21-25) mmol/L ABG Total CO2 (19-24) mmol/L ABG O2 Saturation (94-97) % Sodium 131 L (137-145) mmol/L Potassium 2.9 L (3.5-5.1) mmol/L Chloride 89 L (98-107) mmol/L BUN 49 H (7-17) mg/dL Creatinine 3.21 H (0.52-1.04) mg/dL Glucose 188 H (74-99) mg/dL POC Glucose (mg/dL) 216 H (75-99) mg/dL Calcium 5.8 L* (8.4-10.2) mg/dL Ionized Calcium Ashley (4.5-5.3) mg/dL Magnesium (1.6-2.3) mg/dL AST 108 H (14-36) U/L Total Protein 3.0 L (6.3-8.2) g/dL Albumin 1.6 L (3.5-5.0) g/dL Cyclosporine (100-400) ng/mL 10/04/21 10/04/21 10/04/21 Range/Units 05:40 08:00 11:54 WBC (3.8-10.6) k/uL RBC (3.80-5.40) m/uL Hgb (11.4-16.0) gm/dL Hct (34.0-46.0) % Plt Count (150-450) k/uL Neutrophils # (Manual) (1.3-7.7) k/uL Lymphocytes # (Manual) (1.0-4.8) k/uL ABG pH 7.52 H (7.35-7.45) ABG HCO3 31 H (21-25) mmol/L ABG Total CO2 32 H (19-24) mmol/L ABG O2 Saturation 97.4 H (94-97) % Sodium (137-145) mmol/L Potassium (3.5-5.1) mmol/L Chloride (98-107) mmol/L BUN (7-17) mg/dL Creatinine (0.52-1.04) mg/dL Glucose (74-99) mg/dL POC Glucose (mg/dL) 119 H (75-99) mg/dL Calcium (8.4-10.2) mg/dL Ionized Calcium Ashley 3.5 L* (4.5-5.3) mg/dL Magnesium 1.5 L (1.6-2.3) mg/dL AST (14-36) U/L Total Protein (6.3-8.2) g/dL Albumin (3.5-5.0) g/dL Cyclosporine (100-400) ng/mL Microbiology - Last 24 Hours (Table) 10/02/21 10:51 Blood Culture - Preliminary Blood No Growth after 48 hours 10/02/21 10:30 Blood Culture - Preliminary Blood No Growth after 48 hours
[2021-10-04] MEDS ORDERED: POTASSIUM CHLORIDE 20 MEQ in WATER FOR INJECTION 1 100ML.BAG IVPB STA (16:30)
[2021-10-04] MEDS: POTASSIUM BICARBONATE/CIT AC 20 MEQ TABLET.EFF PO SCH ×3 (16:46→18:30)
[2021-10-04 17:32] LABS: Glucose,Whole Blood 118 mg/dL (75-99)
--- NOTE | 2021-10-04 17:35 | PN ---
PROGRESS NOTE Patient is seen for followup for acute kidney injury. Patient remains on the vent. Case is discussed with nursing staff. FiO2 at 40%. Urine output has picked up significantly, currently at about 40 to 60 mL/hour. Patient's pressors are significantly lower. Levophed is down to 0.08. Vasopressin is also being decreased. Fluids are currently at 75 mL/hour for normal saline. Patient remains on IV steroids. Labs show cyclosporine level was 52, sodium 131, potassium 2.9, chloride 89, BUN 49, creatinine 3.2, calcium 5.8, ionized calcium 3.5, magnesium 1.5, albumin 1.6. ASSESSMENT: 1. Acute kidney injury, acute tubular necrosis, initially oliguric, currently nonoliguric. Etiology mostly hypotension, sepsis. Urine output has picked up once hemodynamics have improved. 2. 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 Currently immunosuppression is on hold except for IV steroids. 3. Bowel perforation with perforated sigmoid colon, status post colectomy and diverting colostomy. 4. Acute hypoxic respiratory failure secondary to above. 5. Severe metabolic acidosis associated with lactic acidosis, renal failure and GI fluid loss, status post IV bicarb. 6. COVID-19 PCR positive with chest x-ray showing bilateral infiltrates and pleural effusion. PLAN: Continue with the IV fluids. Continue at 75 mL/hour. Check 25 hydroxy vitamin D level and start vitamin D2 supplementation. Add calcium supplementation as well and repeat labs in a.m. Avoid nephrotoxic agents. Continue with the IV steroids. MMODL / IJN: [id number] /
--- NOTE | 2021-10-04 18:41 | PN ---
PROGRESS NOTE DATE OF SERVICE: 10/04/2021 REASON FOR FOLLOWUP: 1. Secondary peritonitis with perforated sigmoid diverticulitis. 2. COVID-19 infection. INTERVAL HISTORY: The patient is afebrile. The patient is hemodynamically stable. FiO2 is currently at 40%. No significant pleural effusion or any changes reported by the nursing staff. PHYSICAL EXAMINATION: Blood pressure is 98/61, pulse of 90, temperature 97.6. She is 94% on 40% FIO2. General description is an elderly female lying in bed in no distress. Respiratory system: Unlabored breathing, decreased intensity of breath sounds, no wheeze. Heart S1, S2. Regular rate and rhythm. Abdomen soft, no tenderness. LABS: Hemoglobin 9.1, white count 28.5, creatinine 3.21. DIAGNOSTIC IMPRESSION AND PLAN: 1. Patient with secondary peritonitis from perforated sigmoid diverticulitis status post sigmoid colectomy and diverting colostomy. Patient is covered with Unasyn, to continue. 2. Patient with elevated white count more likely steroid effect and will monitor closely. Continue supportive care. MMODL / IJN: [id number] /
[2021-10-04] MEDS: CALCIUM CARBONATE 500 MG CHEWABLE PO SCH (19:55)
[2021-10-04 23:58] LABS: Glucose,Whole Blood 115 mg/dL (75-99)
[2021-10-05] MEDS: INSULIN ASPART (NovoLOG) 100 UNIT/ML VIAL SQ SCH ×4 (00:15→18:56)
[2021-10-05] MEDS: HYDROCORTISONE SUCCINATE 100 MG/2 ML VIAL IV SCH ×3 (00:18→16:28)
[2021-10-05] MEDS: metroNIDAZOLE-NS PMX 500 MG in SALINE 1 100ML.BAG IVPB SCH ×4 (03:18→20:47)
[2021-10-05 03:42] LABS: Basophils # (A) 0.1 k/uL (0-0.2); Basophils % (A) 0 %; Eosinophils % (A) 0 %; HCT 28.7 % (34.0-46.0); HGB 8.8 gm/dL (11.4-16.0); Lymphocytes # (A) 0.4 k/uL (1.0-4.8); Lymphocytes % (A) 2 %; MCH 28.4 pg (25.0-35.0); MCHC 30.5 g/dL (31.0-37.0); MCV 93.2 fL (80.0-100.0); Monocytes # (A) 0.6 k/uL (0-1.0); Monocytes % (A) 2 %; Neutrophils # (A) 25.1 k/uL (1.3-7.7); Neutrophils % (A) 95 %; RBC 3.08 m/uL (3.80-5.40); RDW 15.1 % (11.5-15.5); WBC 26.5 k/uL (3.8-10.6)
[2021-10-05 03:47] LABS: Platelet Count 50 k/uL (150-450)
[2021-10-05 04:28] LABS: Albumin 1.6 g/dL (3.5-5.0); Potassium 3.1 mmol/L (3.5-5.1); Total Bilirubin 1.3 mg/dL (0.2-1.3)
[2021-10-05 04:44] LABS: Calcium 6.3 mg/dL (8.4-10.2)
[2021-10-05] MEDS ORDERED: POTASSIUM BICARB-CITRIC ACID 25 MEQ TABLET.EFF PO ONE (05:11)
[2021-10-05] MEDS ORDERED: POTASSIUM CHLORIDE 20 MEQ in WATER FOR INJECTION 1 100ML.BAG IVPB STA (05:11)
[2021-10-05] MEDS ORDERED: CALCIUM GLUCONATE 2 GM in SODIUM CHLORIDE 0.9% 100 ML IVPB ONE (05:13)
[2021-10-05 05:54] LABS: ABG Base Excess 8.9 mmol/L; ABG HCO3 32 mmol/L (21-25); ABG Oxygen Saturation 96.8 % (94-97); ABG PCO2 37 mmHg (35-45); ABG PH 7.54 (7.35-7.45); ABG PO2 80 mmHg (83-108); ABG TCO2 33 mmol/L (19-24)
[2021-10-05 05:55] LABS: Allen Test Performed? no
--- NOTE | 2021-10-05 06:31 | XR ---
EXAMINATION TYPE: XR chest 1V portable DATE OF EXAM: 10/05/2021 COMPARISON: 10/04/2021 HISTORY: Tube placement TECHNIQUE: Single frontal view of the chest is obtained. FINDINGS: ET tube is 4 cm above the tri. There is an NG tube stomach right-sided central line ter minating in the atrium. There are opacities obscuring the hemidiaphragms presenting small pleural effusions. The pulmonary va sculature appears congested. There is no pneumothorax. Heart size is normal. The osseous structures a re intact. IMPRESSION: No interval change in the acute cardiopulmonary disease. ET tube is 4.1 cm above the car gay.
[2021-10-05] MEDS: PANTOPRAZOLE 40 MG/10 ML VIAL IV SCH (08:20)
[2021-10-05] MEDS: CHLORHEXIDINE GLUCONATE 15 ML CUP MUCOUS MEM SCH ×2 (08:21→20:47)
[2021-10-05] MEDS: CALCIUM CARBONATE 500 MG CHEWABLE PO SCH ×2 (08:21→20:47)
[2021-10-05] MEDS: APIXABAN 2.5 MG TABLET PO SCH ×2 (08:21→09:35)
[2021-10-05] MEDS: PIPERACILLIN-TAZOBACTAM 3.375 GM in SODIUM CHLORIDE 0.9% 100 ML IVPB SCH ×2 (08:22→20:47)
--- NOTE | 2021-10-05 09:39 | P.PN ---
Subjective Progress Note Date: 10/05/21 81-year-old female patient who presented to the burst department because of an abdominal pain. The patient was found to have free air in the abdomen. A CAT scan of the abdomen was done and the patient was found to have pneumoperitoneum. The patient denied having any fever at home. She did have abdominal pain and nausea. His abdominal pain was of a sudden onset and it occurs at home. No history of any peptic ulcer disease. No history of any inflammatory bowel disease. She is known to have paroxysmal atrial fibrillation and she has been involved in a previous TIA and the patient was treated anticoagulation with Eliquis. 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 Note that her current transplant kidney is the second chest elevation of the patient had. This was given to her back in 2017 at [facility]. During this current admission, the patient had no fevers or chills. She had severe abdominal pain. CAT scan of the abdomen was done in the emergency department and the patient was found to have evidence of moderate size pneumoperitoneum. There was moderate ascites. There was evidence of small bowel wall thickening and mild dilatation and edema of the mesentery consider mesenteric ischemia. She also had a some left lower lobe atelectatic change and cardiomegaly. There was a left-sided pelvic cystic mass. Neurosurgery was consulted and the patient will be taken to the operating room. In the emergency, the patient was intubated and placed on a mechanical ventilator. She was given 3-1/2 L of normal saline. She was started on pressors and the patient is on norepinephrine infusion chronic at 0.5 mcg/kg per minute. Lactic acid level was as high as 12 and currently has improved down to 3.9. Her white cell count is currently at 6.8 with a hemoglobin of 12.7 and platelet coun t of 245. She is currently on a mechanical ventilator on assist control mode at the rate of 26, tidal volume of 300 with an FiO2 of 40% and a PEEP of 5. The pH is 7.34 with a pCO2 of 35 and pO2 is at 83. The patient was given IV Unasyn in the emergency department. General surgeries on the case. The patient will be taken to the operating room. Electrolyte are normal. Reyes catheter has been inserted. She has chronic kidney disease in the creatinine is at 1.8. UA is also abnormal and shows + protein, there are several WBCs consistent for an underlying infection. The current cardiac rhythm is atrial fibrillation with a controlled rate and the patient has frequent 10/02/2021, the patient is postop day #1 the patient was taken to the operating room for an acute pneumoperitoneum an acute abdomen yesterday. The surgery was done and the patient intraoperatively was found to have perforated sigmoid colon. The surgery included exploratory laparotomy, and the patient underwent a sigmoid colectomy and diverting colostomy. Estimated blood loss was around 100 mL. Postop, the patient was kept intubated on a mechanical ventilator and the patient was brought into the ICU for further care. This morning, the patient remains sedated. She is currently on propofol which is running at 25 mL an hour. She is well sedated for now. She is on no paralytics. She remains on a mechanical ventilator. Currently she is on assist control mode of mechanical ventilation and she is currently on assist control of 26, tidal volume of 300, FiO2 of 40% with a PEEP of 5. The morning blood. This showed a pH of 7.25 with a pCO2 of 31 and pO2 of 91. The patient had a chest x-ray today that showed adequate positioning of the orotracheal tube. The patient also has a orogastric tube in place. No evidence of any pneumothorax. The lungs are adequately expanded bilaterally. There is adequate positioning of the a orogastric tube. There is some atelectatic changes in the left lung base. The patient also has a triple-lumen catheter in the right IJ. There is some basilar atelectasis and p ossible effusion the left lung base. Hemodynamically, the patient is still receiving IV fluids. IV fluids are in the form of bicarb infusion at the rate of 75 mL an hour and the rate will be increased up to 150 mL an hour. Patient is also on norepinephrine running at 0.52 mcg/kg per minute. Urine output is in order of 100 mL over the past 12 hours. Overall fluid balance is +2.7 L over the past 24 hours. Meanwhile, the patient's white cell count is at 24.6. Hemoglobin is at 12.6. The serum bicarbonate of 11. Sodium is 136, BUN is a 38 with a creatinine of 3.04 consistent with an acute on top of a chronic kidney disease. Calcium level is down to 5.9 and this needs to be replaced. The patient also had the incidental finding of COVID 19 being positive. Antibiotic coverage includes a combination of Zosyn and Flagyl for now. She has a arterial line catheter. No other significant events otherwise for now. Cultures have been all negative thus far. The patient's cardiac rhythm is atrial fibrillation. Her rate is controlled for now. No anticoagulants for now. No other medication for rate control for now. The patient remains on stress dose hydrocortisone. 10/03 2021, the patient is postop day #2 or neck. Abdomen and pneumoperitoneum and the patient underwent a sigmoid resection with a diverting colostomy. The patient is currently on postop day #2. The patient remains hypotensive, the patient remains septic. The patient requires higher doses of pressors. The patient has also developed an acute on top of chronic kidney failure and this occurred on top of her chronically transplanted kidney. The patient remains intubated on a mechanical ventilator. This morning, the patient is sedated with propofol and propofol is running at 25 mcg/kg per minute which is the same as yesterday and she's been adequately sedated. She is on a mechanical ventilator within assist-control mode and a tidal volume of 300 with a rate of 26 and an FiO2 of 4040% with a PEEP of 5. The blood gas was noted from this morning and showed a pH of 7.45 with a pCO2 of 35 and a pO2 of 80. The chest x-ray from today is showing some limited atelectatic changes and left lung base. The lungs are clear and there is no consolidation or infiltrate. Orotracheal tube remains in a good location. Hemodynamically, the patient remains on IV fluids. The patient is receiving bicarb infusion at the rate of 150 mL an hour. Urine output is in order of 30 or 40 mL an hour and the urine output is essentially improving. Serum bicarbonate currently is at 22 and her acidosis is also improved. Meanwhile, the patient continues to be on pressors. The patient is on norepinephrine infusion which is running at 0.4 to microvascular kilogram per minute. Cultures are all negative thus far. The white cell count from today is at 31.9 and it remains quite elevated. Note that the patient's pro calcitonin level was considerably elevated at a time of admission. Another active issue is development of an acute kidney injury on top of her chronic kidney disease. Noted the patient has history of FSGS and she came in to us with a creatinine of 1. his baseline. During her postoperative course and sepsis, the patient developed an acute kidney injury. Her creatinine today is at 3.52. Nephrology has been on consult. Nephrology has opted to stop the immunosuppressive agents which I agree to as the patient is currently hypotensive and septic. On a separate note, the patient do not to be positive for: 19. Despite that, she is not having any significant respiratory issues and the chest x-ray remains currently intact and stable. In terms of her cardiac rhythm, the patient remains in atrial fibrillation. Rate is controlled for now. She was started on amiodarone drip by cardiology. She was also started on IV heparin. The PTT is supratherapeutic at this point in time and I would suggest discontinuing the IV heparin for now and monitoring her coagulation profile. As far as the am iodarone drip, this can be also discontinued knowing that a heart rate between 101 120 is acceptable on this patient. Calcium level has been quite low and ionized calcium has dropped. I give the patient total of 2 g of calcium yesterday and she'll be given another 2 g today and we'll going to monitor calcium level. Her serum albumin is low. Nevertheless, the ionized calcium is also low. Her platelet counts have also dropped probably related to consumption due to her underlying sepsis. Her current antibiotic coverage is a combination of Zosyn and Flagyl. 10/04/2021, the patient is postop day #3. The patient remains intubated on a mechanical ventilator. Note that the patient was quite hypotensive and septic postop and the patient was requiring considerable amount of pressors and the patient also developed an acute on top of her chronic kidney disease knowing that she has a transplanted kidney and she does have some background chronic renal insufficiency. This morning, the patient remains sedated and the patient is currently on propofol, running at 25 mcg/kg per minute and this is the same level of sedation that was offered to this patient yesterday. The patient remains on a mechanical ventilator, assist control mode, tidal volumes at 300 with a rate of 26 and FiO2 is currently at 40% with a PEEP of 5. Blood gases from today shows a pH of 7.51 with a pCO2 of 38 and pO2 of 85. The chest x-ray from today is showing no significant acute abnormalities. The patient has some atelectatic change in the left lung base. The right lung essentially clear. ET tube remains in excellent location. There may be some increased pulmonary vascular markings perihilar the and in the lower lobes bilaterally. In terms of hemodynamics, the patient remains on IV fluids and currently she is on bicarb infusion at the rate of 150 mL an hour. The patient's blood work shows a serum bicarb level of 26. Sodium is at 131 with a potassium level of 2.9. Renal function stable and the patient has a BUN of 49 with a creatinine of 3.2. We continued to have ongoing problems with hypocalcemia Calcium level including total and ionized have been low. The patient received a total of 4 g of IV calcium yesterday and an additional 2 g was given this morning. The morning calcium level higher to her receiving the last 2 g was at 5.8 total. The patient remains on pressors. The patient is currently on norepinephrine at the rate of 0.13 microvascular kilogram per minute. The patient is also on vasopressin physiologic dose. She remains on stress dose hydrocortisone. Her cardiac rhythm is atrial fibrillation. The patient was taken off the IV amiodarone yesterday. The patient was also having supratherapeutic PTT. The IV heparin is off for now. The patient remains on IV Zosyn and Flagyl as a broad- spectrum antibiotics coverage. The cultures of been all negative thus far. Echo of the heart showed a preserved LV function with an EF of around 55-60%. On today's evaluation, the patient's colostomy is functional and he put out approximately 300 mL of liquid material. Surgical wound site is dry clean and intact. Abdominal bowel sounds are hypoactive at the present. 10/05 2021, the patient is postop day #4. Remains on a mechanical ventilator. He remains sedated with propofol and the patient is currently on 15 mcg/kg per minute. She is adequately sedated for now. She remains on a mechanical ventilator on assist control mode at the rate of 26, tidal volume of 300, FiO2 of 40% with a PEEP of 5. The blood gas from today shows a father respiratory alkalosis and metabolic alkalosis. PH is at 7.54 with a pCO2 of 37 and pO2 of 80. Chest x-ray showing some atelectatic changes and small effusion the lung bases bilaterally. ET tube is in a good location. There is some mild increase in interstitial markings. Note that the patient is a case of Coumadin nightly related pneumonia also. Hemodynamically, the patient is doing better. She has been weaned off on norepinephrine which is currently running at 0.02 microvascular kilogram per minute and vasopressin remains on a physiologic dose. Her renal function continues to improve in the creatinine is down to 2.7. The patient was also having issues with hypocalcemia. She required calcium placement and her serum calcium total currently is up to 6.3. Ionized calcium is pending for now. Her serum albumin was down to 1.6. Her colostomy was functional and she was started on enteral feeding for nutritional support and she is currently on Nepro at the rate of 23 mL an hour. Another concern is her thrombocytopenia as the patient developed consumptive thrombocytopenia. She is currently on anticoagulation with Eliquis. No bleeding. I am concerned about the potential of bleeding this patient I'm recommending discontinuation of the Eliquis for now. We'll continue the combination of Zosyn and Flagyl as broad- spectrum antibiotic coverage. Cultures of been all negative. Bowel sounds are still hypoactive. The patient will need obviously a sedation holiday today and her candidacy for further weaning will be assessed. Objective - Vital Signs Vital signs: Vital Signs Temp 98.1 F 10/05/21 04:00 Pulse 99 10/05/21 07:00 Resp 23 10/05/21 07:00 BP 103/76 10/05/21 07:00 Pulse Ox 96 10/05/21 07:00 Intake & Output 10/04/21 10/05/21 10/05/21 18:59 06:59 18:59 Intake Total 8101.200 6241.797 101 Output Total 1100 1550 40 Balance 847.340 -146.203 61 Weight 64.5 kg Intake: IV 1080 936 78 Piperacillin-Tazobactam 3 100 .375 gm In Sodium Chloride 0.9% 100 ml @ 25 mls/hr IVPB Q12H [facility] Rx# :[id number] Pressure Bag 30 36 3 Sodium Chloride 0.9% 1, 750 900 75 000 ml @ 75 mls/hr IV . [id number] [facility] Rx#:[id number] metroNIDAZOLE-NS PMX 500 200 mg In Saline 1 100ml.bag @ 100 mls/hr IVPB Q6H [facility] Rx#:[id number] Intake, IV Titration 737.340 114.797 Amount Calcium Gluconate 2 gm In 100 Sodium Chloride 0.9% 100 ml @ 100 mls/hr IVPB ONCE ONE Rx#:[id number] Magnesium Sulfate-D5w Pmx 200 1 gm In Dextrose/Water 1 100ml.bag @ 100 mls/hr IVPB Q1H [facility] Rx#: [id number] Norepinephrine 32 mg In 37.340 14.797 Sodium Chloride 0.9% 218 ml @ 0.05 MCG/KG/MIN 1. 329 mls/hr IV .Q24H [facility] Rx#:[id number] Potassium Chloride 20 meq 300 In Water For Injection 1 100ml.bag @ 50 mls/hr IVPB Q2H [facility] Rx#: [id number] propofoL 1,000 mg In 100 100 Empty Bag 1 bag @ Titrate IV .Q0M [facility] Rx#: [id number] Tube Feeding 70 263 23 Other 60 90 Output: Urine 300 550 40 Stool 800 1000 Other: Voiding Method Indwelling Catheter Indwelling Catheter ABP, PAP, CO, CI - Last Documented Arterial Blood Pressure 120/69 - Exam The patient is currently sedated and the patient is currently on propofol running at 15 mcg/kg per minute. She is on a mechanical ventilator. She is intubated. Orogastric and orotracheal tube are both in place. Output from the OG is minimal at this point in time. Head exam was generally normal. There was no scleral icterus or corneal arcus. Mucous membranes were moist. Neck was supple and without jugular venous distension, thyromegaly, or carotid bruits. Carotids were easily palpable bilaterally. There was no adenopathy. The patient has a right IJ triple-lumen catheter in place. Cardiac exam revealed the PMI to be normally situated and sized. The rhythm is irregular consistent with atrial fibrillation and the patient has extrasystoles that were were noted during several minutes of auscultation. The first and second heart sounds were normal and physiologic splitting of the second heart sound was noted. There were no murmurs, rubs, clicks, or gallops. Lungs were clear to auscultation and percussion, and with normal diaphragmatic excursion. No wheezes or rales were noted. Examination of the abdomen shows some mild abdominal distention. She has a with abdominal wounds. No significant output in her colostomy bag. No direct tenderness. No rebound tenderness. No guarding. Organs cannot be palpated. The patient has scars of previous kidney chest mentation over the anterior abdominal wall. The patient has a functional colostomy. There is a total of 300 mL of liquid material accumulating. Bowel sounds are still hypoactive. Surgical wound site is dry clean and intact. No evidence of any wound dehiscence. No evidence of any wound infection. No drains. Examination of the extremities revealed easily palpable radial, femoral and pedal pulses. There was no cyanosis, clubbing or edema. Examination of the skin revealed no evidence of significant rashes, suspicious appearing nevi or other concerning lesions. Neurologically the patient sedated for now. - Labs CBC & Chem 7: 10/05/21 03:25 10/05/21 03:25 Labs: Abnormal Lab Results - Last 24 Hours (Table) 10/04/21 10/04/21 10/04/21 Range/Units 08:00 08:00 08:00 WBC (3.8-10.6) k/uL RBC (3.80-5.40) m/uL Hgb (11.4-16.0) gm/dL Hct (34.0-46.0) % MCHC (31.0-37.0) g/dL Plt Count (150-450) k/uL Neutrophils # (1.3-7.7) k/uL Lymphocytes # (1.0-4.8) k/uL ABG pH (7.35-7.45) ABG pO2 (83-108) mmHg ABG HCO3 (21-25) mmol/L ABG Total CO2 (19-24) mmol/L Sodium (137-145) mmol/L Potassium (3.5-5.1) mmol/L Chloride (98-107) mmol/L BUN (7-17) mg/dL Creatinine (0.52-1.04) mg/dL Glucose (74-99) mg/dL POC Glucose (mg/dL) (75-99) mg/dL Hemoglobin A1c (0.0-6.0) % Calcium (8.4-10.2) mg/dL Ionized Calcium Ashley 3.5 L* (4.5-5.3) mg/dL Phosphorus (2.5-4.5) mg/dL Magnesium 1.5 L (1.6-2.3) mg/dL AST (14-36) U/L Creatine Kinase 554 H (30-135) U/L Total Protein (6.3-8.2) g/dL Albumin (3.5-5.0) g/dL PTH Intact 214.0 H (14.0-72.0) pg/mL 10/04/21 10/04/21 10/04/21 Range/Units 08:00 11:54 15:18 WBC (3.8-10.6) k/uL RBC (3.80-5.40) m/uL Hgb (11.4-16.0) gm/dL Hct (34.0-46.0) % MCHC (31.0-37.0) g/dL Plt Count (150-450) k/uL Neutrophils # (1.3-7.7) k/uL Lymphocytes # (1.0-4.8) k/uL ABG pH (7.35-7.45) ABG pO2 (83-108) mmHg ABG HCO3 (21-25) mmol/L ABG Total CO2 (19-24) mmol/L Sodium (137-145) mmol/L Potassium 2.9 L (3.5-5.1) mmol/L Chloride (98-107) mmol/L BUN (7-17) mg/dL Creatinine (0.52-1.04) mg/dL Glucose (74-99) mg/dL POC Glucose (mg/dL) 119 H (75-99) mg/dL Hemoglobin A1c (0.0-6.0) % Calcium (8.4-10.2) mg/dL Ionized Calcium Ashley (4.5-5.3) mg/dL Phosphorus 5.4 H (2.5-4.5) mg/dL Magnesium (1.6-2.3) mg/dL AST (14-36) U/L Creatine Kinase (30-135) U/L Total Protein (6.3-8.2) g/dL Albumin (3.5-5.0) g/dL PTH Intact (14.0-72.0) pg/mL 10/04/21 10/04/21 10/05/21 Range/Units 17:30 23:57 03:25 WBC (3.8-10.6) k/uL RBC (3.80-5.40) m/uL Hgb (11.4-16.0) gm/dL Hct (34.0-46.0) % MCHC (31.0-37.0) g/dL Plt Count (150-450) k/uL Neutrophils # (1.3-7.7) k/uL Lymphocytes # (1.0-4.8) k/uL ABG pH (7.35-7.45) ABG pO2 (83-108) mmHg ABG HCO3 (21-25) mmol/L ABG Total CO2 (19-24) mmol/L Sodium (137-145) mmol/L Potassium (3.5-5.1) mmol/L Chloride (98-107) mmol/L BUN (7-17) mg/dL Creatinine (0.52-1.04) mg/dL Glucose (74-99) mg/dL POC Glucose (mg/dL) 118 H 115 H (75-99) mg/dL Hemoglobin A1c 6.5 H (0.0-6.0) % Calcium (8.4-10.2) mg/dL Ionized Calcium Ashley (4.5-5.3) mg/dL Phosphorus (2.5-4.5) mg/dL Magnesium (1.6-2.3) mg/dL AST (14-36) U/L Creatine Kinase (30-135) U/L Total Protein (6.3-8.2) g/dL Albumin (3.5-5.0) g/dL PTH Intact (14.0-72.0) pg/mL 10/05/21 10/05/21 10/05/21 Range/Units 03:25 03:25 05:49 WBC 26.5 H (3.8-10.6) k/uL RBC 3.08 L (3.80-5.40) m/uL Hgb 8.8 L (11.4-16.0) gm/dL Hct 28.7 L (34.0-46.0) % MCHC 30.5 L (31.0-37.0) g/dL Plt Count 50 L (150-450) k/uL Neutrophils # 25.1 H (1.3-7.7) k/uL Lymphocytes # 0.4 L (1.0-4.8) k/uL ABG pH 7.54 H (7.35-7.45) ABG pO2 80 L (83-108) mmHg ABG HCO3 32 H (21-25) mmol/L ABG Total CO2 33 H (19-24) mmol/L Sodium 133 L (137-145) mmol/L Potassium 3.1 L (3.5-5.1) mmol/L Chloride 93 L (98-107) mmol/L BUN 51 H (7-17) mg/dL Creatinine 2.74 H (0.52-1.04) mg/dL Glucose 114 H (74-99) mg/dL POC Glucose (mg/dL) (75-99) mg/dL Hemoglobin A1c (0.0-6.0) % Calcium 6.3 L* (8.4-10.2) mg/dL Ionized Calcium Ashley (4.5-5.3) mg/dL Phosphorus (2.5-4.5) mg/dL Magnesium (1.6-2.3) mg/dL AST 72 H (14-36) U/L Creatine Kinase (30-135) U/L Total Protein 3.0 L (6.3-8.2) g/dL Albumin 1.6 L (3.5-5.0) g/dL PTH Intact (14.0-72.0) pg/mL Microbiology - Last 24 Hours (Table) 10/02/21 10:51 Blood Culture - Preliminary Blood No Growth after 48 hours 10/02/21 10:30 Blood Culture - Preliminary Blood No Growth after 48 hours Assessment and Plan Plan: 1 acute pneumoperitoneum. The patient was found to have an acute perforated sigmoid colon. The patient underwent colectomy and diverting colostomy and the patient is currently postop day #4 . Patient continues to be hypotensive in shock state related to postoperative sepsis. The patient remains in atrial fibrillation. The patient has developed an acute on top of her chronic kidney injury. She is covered with broad-spectrum antibiotics patient remains intubated on a mechanical ventilator. This morning, the patient is on minimal pressors and she is on vasopressin at 0.03 units an hour and the patient is also on norepinephrine on 0.02 mcg/kg per minute. Positive colostomy bag. There is positive output in her colostomy bag. . On enteral feeding for nutritional support and the patient was started on NG tube feeding today. 2 acute hypoxic respiratory failure secondary to above, currently intubated on a mechanical ventilator. 3 septic shock in the setting of an acute abdomen and pneumoperitoneum. The patient is currently on a combination of fluids and pressors and antibiotics. Pressors are running in the form of norepinephrine infusion at 0.02 mg/kg per minute. 4 acute lactic acidosis, improving. 5 history of kidney transplantation maintained on immunosuppressive agents including a combination of CellCept, cyclosporine and prednisone 6 acute on top of chronic kidney disease , creatinine is improving 7 history of FSGS requiring transfer patient 2 in the most recent chest eleva tion was done in 2006 8 history of chronic atrial fibrillation with a previous history of TIA, main tained on long-term and to coagulation with Eliquis, the rate control and the patient was given a combination of IV heparin and IV amiodarone. Both of these infusions have been discontinued and the patient can be started on oral anticoagulation once cleared by general surgery and the patient was started on Eliquis. Nevertheless, the platelet counts are low and I am contemplating holding day anticoagulation for now. 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 This could be atelectasis/fluid as the patient was aggressively resuscitated. Possibility of Coumadin to progression is also considered. Nevertheless, no significant change in her oxygenation at this point in time. 14 postoperative atelectatic changes in lung bases as evident on today's chest x-ray 15 acquired thrombocytopenia, stable for now and the patient was on anticoagulation with Eliquis. 16 hypocalcemia, will be discussed with nephrology. Calcium level is being replaced. Check vitamin D, check intact PTH. PLAN: Continue ventilator support. Drop RR to 16 IVF at KVO continue pressors for now , she is on NE at 0. 02 mcg/kg/min Continue Vaso physiologic dose Cover The patient with a combination of Zosyn and Flagyl Continue Stress dose hydrocortisone as the patient has been on prednisone on long-term basis and the patient will be given hydrocortisone 100 mg every 8 hours IV protonix Monitor plt count DC Eliquis DC amiodarone Monitor platelets echocardiogram showed preserved left ventricular systolic function with ejection fraction 55-60% We'll continue with pressors for now, wean off if possible today Urine cultures and blood cultures pending Nephrology consulted regarding her kidney transplantation Off Immunosuppression enteral feeding i-pth and vit d3 level levels checked replace calcium Monitor ionized Ca Replace magnesium Sedation holiday and assess candidacy for weaning. Check weaning parameters and sized accordingly. Condition is critical we'll continue to follow and make further recommendations based on her progress. Critical care time 34 minutes Time with Patient: Greater than 30
--- NOTE | 2021-10-05 11:25 | P.PN ---
Subjective She remains intubated on norepinephrine, vasopressin and IV antibiotics Atrial fibrillation rates are reasonably controlled Pulse rate 90-110 irregular Afebrile Blood pressure 120/68 mmHg Breath sounds are reduced bilaterally White count 26,000 hemoglobin 8.8 Sodium 133 BUN 51 creatinine 2.74 BUN 51 and creatinine 2.74 Platelet count 50,000 Impression Atrial fibrillation reasonably controlled rates Drop in platelet count after starting heparin, IV heparin discontinued As well as her rate 70s to controlled amiodarone remains on hold If her rates get out of control and she is RVR and IV amiodarone be used again Objective - Vital Signs Vital signs: Vital Signs Temp 97.9 F 10/05/21 08:00 Pulse 102 H 10/05/21 08:15 Resp 24 10/05/21 08:15 BP 103/76 10/05/21 07:00 Pulse Ox 95 10/05/21 08:15 Intake & Output 10/04/21 10/05/21 10/05/21 18:59 06:59 18:59 Intake Total 0234.244 1215.797 271.155 Output Total 1100 1550 640 Balance 847.340 -146.203 -368.845 Weight 64.5 kg Intake: IV 1080 936 147 Piperacillin-Tazobactam 3 100 .375 gm In Sodium Chloride 0.9% 100 ml @ 25 mls/hr IVPB Q12H [facility] Rx# :[id number] Pressure Bag 30 36 12 Sodium Chloride 0.9% 1, 750 900 135 000 ml @ 75 mls/hr IV . [id number] [facility] Rx#:[id number] metroNIDAZOLE-NS PMX 500 200 mg In Saline 1 100ml.bag @ 100 mls/hr IVPB Q6H [facility] Rx#:[id number] Intake, IV Titration 737.340 114.797 2.155 Amount Calcium Gluconate 2 gm In 100 Sodium Chloride 0.9% 100 ml @ 100 mls/hr IVPB ONCE ONE Rx#:[id number] Magnesium Sulfate-D5w Pmx 200 1 gm In Dextrose/Water 1 100ml.bag @ 100 mls/hr IVPB Q1H [facility] Rx#: [id number] Norepinephrine 32 mg In 37.340 14.797 2.155 Sodium Chloride 0.9% 218 ml @ 0.05 MCG/KG/MIN 1. 329 mls/hr IV .Q24H [facility] Rx#:[id number] Potassium Chloride 20 meq 300 In Water For Injection 1 100ml.bag @ 50 mls/hr IVPB Q2H [facility] Rx#: [id number] propofoL 1,000 mg In 100 100 Empty Bag 1 bag @ Titrate IV .Q0M [facility] Rx#: [id number] Tube Feeding 70 263 92 Other 60 90 30 Output: Urine 300 550 240 Stool 800 1000 400 Other: Voiding Method Indwelling Catheter Indwelling Catheter Indwelling Catheter ABP, PAP, CO, CI - Last Documented Arterial Blood Pressure 120/68 - Labs CBC & Chem 7: 10/05/21 03:25 10/05/21 03:25 Labs: Abnormal Lab Results - Last 24 Hours (Table) 10/04/21 10/04/21 10/04/21 Range/Units 08:00 08:00 08:00 WBC (3.8-10.6) k/uL RBC (3.80-5.40) m/uL Hgb (11.4-16.0) gm/dL Hct (34.0-46.0) % MCHC (31.0-37.0) g/dL Plt Count (150-450) k/uL Neutrophils # (1.3-7.7) k/uL Lymphocytes # (1.0-4.8) k/uL ABG pH (7.35-7.45) ABG pO2 (83-108) mmHg ABG HCO3 (21-25) mmol/L ABG Total CO2 (19-24) mmol/L Sodium (137-145) mmol/L Potassium (3.5-5.1) mmol/L Chloride (98-107) mmol/L BUN (7-17) mg/dL Creatinine (0.52-1.04) mg/dL Glucose (74-99) mg/dL POC Glucose (mg/dL) (75-99) mg/dL Hemoglobin A1c (0.0-6.0) % Calcium (8.4-10.2) mg/dL Phosphorus 5.4 H (2.5-4.5) mg/dL AST (14-36) U/L Creatine Kinase 554 H (30-135) U/L Total Protein (6.3-8.2) g/dL Albumin (3.5-5.0) g/dL PTH Intact 214.0 H (14.0-72.0) pg/mL 10/04/21 10/04/21 10/04/21 Range/Units 11:54 15:18 17:30 WBC (3.8-10.6) k/uL RBC (3.80-5.40) m/uL Hgb (11.4-16.0) gm/dL Hct (34.0-46.0) % MCHC (31.0-37.0) g/dL Plt Count (150-450) k/uL Neutrophils # (1.3-7.7) k/uL Lymphocytes # (1.0-4.8) k/uL ABG pH (7.35-7.45) ABG pO2 (83-108) mmHg ABG HCO3 (21-25) mmol/L ABG Total CO2 (19-24) mmol/L Sodium (137-145) mmol/L Potassium 2.9 L (3.5-5.1) mmol/L Chloride (98-107) mmol/L BUN (7-17) mg/dL Creatinine (0.52-1.04) mg/dL Glucose (74-99) mg/dL POC Glucose (mg/dL) 119 H 118 H (75-99) mg/dL Hemoglobin A1c (0.0-6.0) % Calcium (8.4-10.2) mg/dL Phosphorus (2.5-4.5) mg/dL AST (14-36) U/L Creatine Kinase (30-135) U/L Total Protein (6.3-8.2) g/dL Albumin (3.5-5.0) g/dL PTH Intact (14.0-72.0) pg/mL 10/04/21 10/05/21 10/05/21 Range/Units 23:57 03:25 03:25 WBC 26.5 H (3.8-10.6) k/uL RBC 3.08 L (3.80-5.40) m/uL Hgb 8.8 L (11.4-16.0) gm/dL Hct 28.7 L (34.0-46.0) % MCHC 30.5 L (31.0-37.0) g/dL Plt Count 50 L (150-450) k/uL Neutrophils # 25.1 H (1.3-7.7) k/uL Lymphocytes # 0.4 L (1.0-4.8) k/uL ABG pH (7.35-7.45) ABG pO2 (83-108) mmHg ABG HCO3 (21-25) mmol/L ABG Total CO2 (19-24) mmol/L Sodium (137-145) mmol/L Potassium (3.5-5.1) mmol/L Chloride (98-107) mmol/L BUN (7-17) mg/dL Creatinine (0.52-1.04) mg/dL Glucose (74-99) mg/dL POC Glucose (mg/dL) 115 H (75-99) mg/dL Hemoglobin A1c 6.5 H (0.0-6.0) % Calcium (8.4-10.2) mg/dL Phosphorus (2.5-4.5) mg/dL AST (14-36) U/L Creatine Kinase (30-135) U/L Total Protein (6.3-8.2) g/dL Albumin (3.5-5.0) g/dL PTH Intact (14.0-72.0) pg/mL 10/05/21 10/05/21 Range/Units 03:25 05:49 WBC (3.8-10.6) k/uL RBC (3.80-5.40) m/uL Hgb (11.4-16.0) gm/dL Hct (34.0-46.0) % MCHC (31.0-37.0) g/dL Plt Count (150-450) k/uL Neutrophils # (1.3-7.7) k/uL Lymphocytes # (1.0-4.8) k/uL ABG pH 7.54 H (7.35-7.45) ABG pO2 80 L (83-108) mmHg ABG HCO3 32 H (21-25) mmol/L ABG Total CO2 33 H (19-24) mmol/L Sodium 133 L (137-145) mmol/L Potassium 3.1 L (3.5-5.1) mmol/L Chloride 93 L (98-107) mmol/L BUN 51 H (7-17) mg/dL Creatinine 2.74 H (0.52-1.04) mg/dL Glucose 114 H (74-99) mg/dL POC Glucose (mg/dL) (75-99) mg/dL Hemoglobin A1c (0.0-6.0) % Calcium 6.3 L* (8.4-10.2) mg/dL Phosphorus (2.5-4.5) mg/dL AST 72 H (14-36) U/L Creatine Kinase (30-135) U/L Total Protein 3.0 L (6.3-8.2) g/dL Albumin 1.6 L (3.5-5.0) g/dL PTH Intact (14.0-72.0) pg/mL Microbiology - Last 24 Hours (Table) 10/02/21 10:51 Blood Culture - Preliminary Blood No Growth after 48 hours 10/02/21 10:30 Blood Culture - Preliminary Blood No Growth after 48 hours
[2021-10-05] MEDS: HYDROmorphone 0.5 MG/0.5 ML SYRINGE IVP PRN (11:33)
[2021-10-05] MEDS: SODIUM CHLORIDE 0.9% 1,000 ML IV SCH (11:34)
[2021-10-05 11:42] LABS: Glucose,Whole Blood 124 mg/dL (75-99)
--- NOTE | 2021-10-05 12:06 | P.PN ---
Subjective Progress Note Date: 10/05/21 HISTORY OF PRESENT ILLNESS This is an 81-year-old pleasant female patient of Dr. Henao, with known history of hypertension, CK D stage III, paroxysmal atrial fibrillation admitted through the emergency room secondary to abdominal pain and found to have pneumoperitoneum. She has significant discomfort, accompanied by nausea, vomiting, no fever. She presented to emergency room with normal findings, in the CAT scan showing moderate pneumoperitoneum, with small bowel thickening, and mild dilatation jayne ma of the mesenteric considered for mesenteric ischemia there is a left-sided pelvic cystic mass. Chest x-ray shows atelectasis, She is hypotensive, when seen, lactic acid level is high at 12, she was having difficulty of breathing with tachypnea, hence she was preemptively intubated in the emergency room,. She was placed on assist-control, rate of 26, FiO2 40%, PEEP of 5 at the volume of 300. She was sent ICU for stabilization requiring norepinephrine infusion at 0.5 mcg/kg/m for hypotension and septic shock, she received 3.5 L of normal saline for which she is now undergoing exploratory laparotomy. Consult was made with Dr. Price surgeon, and Dr. Nino, critical care ICU physician incidentally, she was tested confirmed Covid positive, on October 0110/02: Patient is seen today in the intensive care unit, remains intubated and on mechanical ventilation with tidal volume 300, FiO2 40 and PEEP of 5. Patient is currently on propofol, bicarb drip, amiodarone is being started for A. fib. Patient is on antibiotics the form of Zosyn and Flagyl. Repeat chest x-ray reveals basilar atelectasis, correlate to exclude pneumonia, possible effusion. Patient is followed by infectious disease, cardiology, automotive glass technician, nephrology, general surgery. Repeat blood work today reveals WBC 24.6, hemoglobin 12.1, platelet count 123. Sodium 136, potassium 4.5, chloride 109, CO2 11, BUN 38 creatinine 3.04. Calcium 5.9. AST 109. Patient remains in isolation for Covid 19. 10/03: Remains intubated on mechanical ventilation with tidal volume 300, FiO2 40, PEEP of 5. She has had very minimal amount output on ostomy. She has been on high-dose levo fed started on vasopressin as well and heparin drip is off due to elevated PTT. She has no output from her OG. Urine output has improved. 10/04: She remains intubated and on mechanical ventilation with tidal volume 300, FiO2 40 and PEEP of 5. Patient started having output from ostomy last evening, liquid brown approximate 950 ML's. Calcium is being replaced. She is still on low-dose norepinephrine and vasopressin as well as IV fluids. Anticipate she will start oral medications and feedings today. Chest x-ray reveals stable bilateral infiltrate and pleural effusion. 10/05 patient remains intubated, PEEP of 5, O2 40% Dilaudid, pressures are little bit on the lower side, still with norepinephrine titrated with bp, NG feedings at 23 mL an hour, output noted in colostomy, no plans for vent weaning at this time in output is adequate patient is on Cortef 100 mg every 8 hours, was on oral prednisone chronically prior to admission. Ahlquist is still on hold, on IV Zosyn and Flagyl REVIEW OF SYSTEMS ROS unobtainable: due to endotracheal tube PHYSICAL EXAMINATION Gen: This is an 81-year-old female, resting on the ICU bed and appears to be comfortable. ET and orogastric tube in place. HEENT: Head is atraumatic, normocephalic. Pupils equal, round. Sclerae is anicteric. NECK: Supple. No JVD. No lymphadenopathy. No thyromegaly. LUNGS: Clear to auscultation. No wheezes or rhonchi. No intercostal retr actions. HEART: Regular rate and rhythm. No murmur. ABDOMEN: Soft. Mild abdominal distention. No tenderness. No output in colostomy bag. Reyes catheter is in place draining dark meir urine. EXTREMITIES: No pedal edema. No calf tenderness. NEUROLOGICAL: Patient is intubated. ASSESSMENT AND PLAN 1. Acute pneumoperitoneum, with peritonitis considered for small bowel perforation, underlying ischemic bowel, requiring mechanical intubation, on the emergency department. General surgery, is working on her exploratory laparotomy 10/01/2020. She has severe lactic acidosis, hypotension, septic shock. She is now requiring fluid resuscitations, 63.5 L at the emergency room, and is on pressors and IV antibiotics. Consult Dr. acharya and continue on Zosyn and Flagyl. Patient is on stress dose of hydrocortisone 100 mg every 8 hours. 2. Small bowel perforation suspected, with septic shock, explore lap on 10/01/1908/10/2022, IV Zosyn 3. Septic shock, IV antibiotics, with fluids w/o pressors 4. History of kidney transplantation, on immunosuppressive agent, CellCept and prednisone and cyclosporine 5. CKD, suspect stage III, 6. chronic atrial fibrillation, with prior TIA. Eliquis resumed on 10/04 7. Covid 19 infection, unknown infection time and onset of signs and symptoms, vaccination status not Determined, consult Dr. Acharya 8. Osteoporosis 9. Breast cancer, with lobular carcinoma in situ, had surgery for these activity unknown, 10. 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 Carmona. 11. Hypocalcemia. Continue to monitor and replace 12. Thrombocytopenia secondary to sepsis. Continue to monitor. 13. DVT prophylaxis GI prophylaxis Prognosis guarded CODE STATUS, full until specified Prognosis guarded. Impression and plan of care have been directed as dictated by the signing physician. Cierra Rodas nurse practitioner acting as scribe for signing physician. Current Medications Calcium Carbonate/Glycine (Calcium Carbonate 500 Mg Chewable) 1,000 mg PO BID [facility] Last Admin: 10/05/21 08:21 Dose: 1,000 mg Documented by: Chlorhexidine Gluconate (Chlorhexidine Gluconate 15 Ml Cup) 15 ml MUCOUS MEM BID [facility] Last Admin: 10/05/21 08:21 Dose: 15 ml Documented by: Ergocalciferol (Ergocalciferol 1,250 Mcg (50,000 Iu) Capsule) 1,250 mcg PO Q7D [facility] Last Admin: 10/04/21 11:37 Dose: 1,250 mcg Documented by: Hydrocortisone Sodium Succinate (Hydrocortisone Succinate 100 Mg/2 Ml Vial) 100 mg IV Q8HR [facility] Last Admin: 10/05/21 08:21 Dose: 100 mg Documented by: Hydromorphone HCl (Hydromorphone 0.5 Mg/0.5 Ml Syringe) 0.5 mg IVP Q4HR PRN PRN Reason: Moderate Pain Last Admin: 10/05/21 11:33 Dose: 0.5 mg Documented by: Propofol 1,000 mg/ IV Solution 100 mls @ 0 mls/hr IV .Q0M [facility]; Protocol Last Titration: 10/05/21 06:50 Dose: 15 mcg/kg/min, 5.805 mls/hr Documented by: Piperacillin Sod/Tazobactam (Sod 3.375 gm/ Sodium Chloride) 100 mls @ 25 mls/hr IVPB Q12H [facility] Last Admin: 10/05/21 08:22 Dose: 25 mls/hr Documented by: Metronidazole 500 mg/ IV (Solution) 100 mls @ 100 mls/hr IVPB Q6H [facility] Last Admin: 10/05/21 08:22 Dose: 100 mls/hr Documented by: Norepinephrine Bitartrate 32 (mg/ Sodium Chloride) 250 mls @ 1.329 mls/hr IV .Q24H [facility]; Protocol Last Titration: 10/05/21 11:55 Dose: 0.02 mcg/kg/min, 0.532 mls/hr Documented by: Vasopressin 60 unit/ Sodium (Chloride) 153 mls @ 4.59 mls/hr IV .Q24H [facility] Last Admin: 10/04/21 09:56 Dose: 4.59 mls/hr Documented by: Sodium Chloride (Saline 0.9%) 1,000 mls @ 75 mls/hr IV .[id number] [facility] Last Admin: 10/05/21 11:34 Dose: 75 mls/hr Documented by: Insulin Aspart (Insulin Aspart (Novolog) 100 Unit/Ml Vial) 0 unit SQ Q6H [facility]; Protocol Last Admin: 10/05/21 05:57 Dose: Not Given Documented by: Miscellaneous Information (Potassium Replacement Protocol 1 Each Misc) 1 each MISCELLANE DAILY PRN; Protocol PRN Reason: Per Protocol Naloxone HCl (Naloxone 0.4 Mg/Ml 1 Ml Vial) 0.2 mg IV Q2M PRN PRN Reason: Opioid Reversal Pantoprazole Sodium (Pantoprazole 40 Mg/10 Ml Vial) 40 mg IV DAILY [facility] Last Admin: 10/05/21 08:20 Dose: 40 mg Documented by: Vital Signs Temp 97.9 F 10/05/21 08:00 Pulse 102 H 10/05/21 08:15 Resp 24 10/05/21 08:15 BP 103/76 10/05/21 07:00 Pulse Ox 95 10/05/21 08:15 Intake & Output 10/04/21 10/05/21 10/05/21 18:59 06:59 18:59 Intake Total 1949.961 7490.797 271.155 Output Total 1100 1550 640 Balance 847.340 -146.203 -368.845 Weight 64.5 kg Intake: IV 1080 936 147 Piperacillin-Tazobactam 3 100 .375 gm In Sodium Chloride 0.9% 100 ml @ 25 mls/hr IVPB Q12H [facility] Rx# :[id number] Pressure Bag 30 36 12 Sodium Chloride 0.9% 1, 750 900 135 000 ml @ 75 mls/hr IV . [id number] [facility] Rx#:[id number] metroNIDAZOLE-NS PMX 500 200 mg In Saline 1 100ml.bag @ 100 mls/hr IVPB Q6H [facility] Rx#:[id number] Intake, IV Titration 737.340 114.797 2.155 Amount Calcium Gluconate 2 gm In 100 Sodium Chloride 0.9% 100 ml @ 100 mls/hr IVPB ONCE ONE Rx#:[id number] Magnesium Sulfate-D5w Pmx 200 1 gm In Dextrose/Water 1 100ml.bag @ 100 mls/hr IVPB Q1H [facility] Rx#: [id number] Norepinephrine 32 mg In 37.340 14.797 2.155 Sodium Chloride 0.9% 218 ml @ 0.05 MCG/KG/MIN 1. 329 mls/hr IV .Q24H [facility] Rx#:[id number] Potassium Chloride 20 meq 300 In Water For Injection 1 100ml.bag @ 50 mls/hr IVPB Q2H [facility] Rx#: [id number] propofoL 1,000 mg In 100 100 Empty Bag 1 bag @ Titrate IV .Q0M [facility] Rx#: [id number] Tube Feeding 70 263 92 Other 60 90 30 Output: Urine 300 550 240 Stool 800 1000 400 Other: Voiding Method Indwelling Catheter Indwelling Catheter Indwelling Catheter ABP, PAP, CO, CI - Last Documented Arterial Blood Pressure 120/68 Laboratory Results - Last 24 Hours 10/04/21 10/04/21 10/04/21 08:00 08:00 08:00 WBC RBC Hgb Hct MCV MCH MCHC RDW Plt Count MPV Neutrophils % Lymphocytes % Monocytes % Eosinophils % Basophils % Neutrophils # Lymphocytes # Monocytes # Eosinophils # Basophils # Sample Site ABG pH ABG pCO2 ABG pO2 ABG HCO3 ABG Total CO2 ABG O2 Saturation ABG Base Excess Jakob Test FiO2 Sodium Potassium Chloride Carbon Dioxide Anion Gap BUN Creatinine Est GFR (CKD-EPI)AfAm Est GFR (CKD-EPI)NonAf Glucose POC Glucose (mg/dL) POC Glu Front End Ui Developer ID Estimated Ave Glu mg/dL Hemoglobin A1c Calcium Phosphorus Total Bilirubin AST ALT Alkaline Phosphatase Creatine Kinase 554 H Total Protein Albumin Vitamin D 25-Hydroxy 35.9 PTH Intact 214.0 H 10/04/21 10/04/21 10/04/21 08:00 15:18 17:30 WBC RBC Hgb Hct MCV MCH MCHC RDW Plt Count MPV Neutrophils % Lymphocytes % Monocytes % Eosinophils % Basophils % Neutrophils # Lymphocytes # Monocytes # Eosinophils # Basophils # Sample Site ABG pH ABG pCO2 ABG pO2 ABG HCO3 ABG Total CO2 ABG O2 Saturation ABG Base Excess Jakob Test FiO2 Sodium Potassium 2.9 L Chloride Carbon Dioxide Anion Gap BUN Creatinine Est GFR (CKD-EPI)AfAm Est GFR (CKD-EPI)NonAf Glucose POC Glucose (mg/dL) 118 H POC Glu Front End Ui Developer ID Dana Weaver Estimated Ave Glu mg/dL Hemoglobin A1c Calcium Phosphorus 5.4 H Total Bilirubin AST ALT Alkaline Phosphatase Creatine Kinase Total Protein Albumin Vitamin D 25-Hydroxy PTH Intact 10/04/21 10/04/21 10/05/21 19:54 23:57 03:25 WBC RBC Hgb Hct MCV MCH MCHC RDW Plt Count MPV Neutrophils % Lymphocytes % Monocytes % Eosinophils % Basophils % Neutrophils # Lymphocytes # Monocytes # Eosinophils # Basophils # Sample Site ABG pH ABG pCO2 ABG pO2 ABG HCO3 ABG Total CO2 ABG O2 Saturation ABG Base Excess Jakob Test FiO2 Sodium Potassium 3.6 Chloride Carbon Dioxide Anion Gap BUN Creatinine Est GFR (CKD-EPI)AfAm Est GFR (CKD-EPI)NonAf Glucose POC Glucose (mg/dL) 115 H POC Glu Front End Ui Developer ID Edouard Carbajal Estimated Ave Glu mg/dL 140 Hemoglobin A1c 6.5 H Calcium Phosphorus Total Bilirubin AST ALT Alkaline Phosphatase Creatine Kinase Total Protein Albumin Vitamin D 25-Hydroxy PTH Intact 10/05/21 10/05/21 10/05/21 03:25 03:25 05:49 WBC 26.5 H RBC 3.08 L Hgb 8.8 L Hct 28.7 L MCV 93.2 MCH 28.4 MCHC 30.5 L RDW 15.1 Plt Count 50 L MPV 15.0 Neutrophils % 95 Lymphocytes % 2 Monocytes % 2 Eosinophils % 0 Basophils % 0 Neutrophils # 25.1 H Lymphocytes # 0.4 L Monocytes # 0.6 Eosinophils # 0.0 Basophils # 0.1 Sample Site jaguar ABG pH 7.54 H ABG pCO2 37 ABG pO2 80 L ABG HCO3 32 H ABG Total CO2 33 H ABG O2 Saturation 96.8 ABG Base Excess 8.9 Jakob Test no FiO2 40 Sodium 133 L Potassium 3.1 L Chloride 93 L Carbon Dioxide 28 Anion Gap 12 BUN 51 H Creatinine 2.74 H Est GFR (CKD-EPI)AfAm 18 Est GFR (CKD-EPI)NonAf 16 Glucose 114 H POC Glucose (mg/dL) POC Glu Front End Ui Developer ID Estimated Ave Glu mg/dL Hemoglobin A1c Calcium 6.3 L* Phosphorus Total Bilirubin 1.3 AST 72 H ALT 12 Alkaline Phosphatase 104 Creatine Kinase Total Protein 3.0 L Albumin 1.6 L Vitamin D 25-Hydroxy PTH Intact 10/05/21 11:40 WBC RBC Hgb Hct MCV MCH MCHC RDW Plt Count MPV Neutrophils % Lymphocytes % Monocytes % Eosinophils % Basophils % Neutrophils # Lymphocytes # Monocytes # Eosinophils # Basophils # Sample Site ABG pH ABG pCO2 ABG pO2 ABG HCO3 ABG Total CO2 ABG O2 Saturation ABG Base Excess Jakob Test FiO2 Sodium Potassium Chloride Carbon Dioxide Anion Gap BUN Creatinine Est GFR (CKD-EPI)AfAm Est GFR (CKD-EPI)NonAf Glucose POC Glucose (mg/dL) 124 H POC Glu Front End Ui Developer ID Mena Graham Estimated Ave Glu mg/dL Hemoglobin A1c Calcium Phosphorus Total Bilirubin AST ALT Alkaline Phosphatase Creatine Kinase Total Protein Albumin Vitamin D 25-Hydroxy PTH Intact Objective - Vital Signs Vital signs: Vital Signs Temp 97.9 F 10/05/21 08:00 Pulse 102 H 10/05/21 08:15 Resp 24 10/05/21 08:15 BP 103/76 10/05/21 07:00 Pulse Ox 95 10/05/21 08:15 Intake & Output 10/04/21 10/05/21 10/05/21 18:59 06:59 18:59 Intake Total 4772.533 1017.797 271.155 Output Total 1100 1550 640 Balance 847.340 -146.203 -368.845 Weight 64.5 kg Intake: IV 1080 936 147 Piperacillin-Tazobactam 3 100 .375 gm In Sodium Chloride 0.9% 100 ml @ 25 mls/hr IVPB Q12H [facility] Rx# :[id number] Pressure Bag 30 36 12 Sodium Chloride 0.9% 1, 750 900 135 000 ml @ 75 mls/hr IV . [id number] [facility] Rx#:[id number] metroNIDAZOLE-NS PMX 500 200 mg In Saline 1 100ml.bag @ 100 mls/hr IVPB Q6H [facility] Rx#:[id number] Intake, IV Titration 737.340 114.797 2.155 Amount Calcium Gluconate 2 gm In 100 Sodium Chloride 0.9% 100 ml @ 100 mls/hr IVPB ONCE ONE Rx#:[id number] Magnesium Sulfate-D5w Pmx 200 1 gm In Dextrose/Water 1 100ml.bag @ 100 mls/hr IVPB Q1H [facility] Rx#: [id number] Norepinephrine 32 mg In 37.340 14.797 2.155 Sodium Chloride 0.9% 218 ml @ 0.05 MCG/KG/MIN 1. 329 mls/hr IV .Q24H [facility] Rx#:[id number] Potassium Chloride 20 meq 300 In Water For Injection 1 100ml.bag @ 50 mls/hr IVPB Q2H [facility] Rx#: [id number] propofoL 1,000 mg In 100 100 Empty Bag 1 bag @ Titrate IV .Q0M [facility] Rx#: [id number] Tube Feeding 70 263 92 Other 60 90 30 Output: Urine 300 550 240 Stool 800 1000 400 Other: Voiding Method Indwelling Catheter Indwelling Catheter Indwelling Catheter ABP, PAP, CO, CI - Last Documented Arterial Blood Pressure 120/68 - Labs CBC & Chem 7: 10/05/21 03:25 10/05/21 03:25 Labs: Abnormal Lab Results - Last 24 Hours (Table) 10/04/21 10/04/21 10/04/21 Range/Units 08:00 08:00 08:00 WBC (3.8-10.6) k/uL RBC (3.80-5.40) m/uL Hgb (11.4-16.0) gm/dL Hct (34.0-46.0) % MCHC (31.0-37.0) g/dL Plt Count (150-450) k/uL Neutrophils # (1.3-7.7) k/uL Lymphocytes # (1.0-4.8) k/uL ABG pH (7.35-7.45) ABG pO2 (83-108) mmHg ABG HCO3 (21-25) mmol/L ABG Total CO2 (19-24) mmol/L Sodium (137-145) mmol/L Potassium (3.5-5.1) mmol/L Chloride (98-107) mmol/L BUN (7-17) mg/dL Creatinine (0.52-1.04) mg/dL Glucose (74-99) mg/dL POC Glucose (mg/dL) (75-99) mg/dL Hemoglobin A1c (0.0-6.0) % Calcium (8.4-10.2) mg/dL Phosphorus 5.4 H (2.5-4.5) mg/dL AST (14-36) U/L Creatine Kinase 554 H (30-135) U/L Total Protein (6.3-8.2) g/dL Albumin (3.5-5.0) g/dL PTH Intact 214.0 H (14.0-72.0) pg/mL 10/04/21 10/04/21 10/04/21 Range/Units 15:18 17:30 23:57 WBC (3.8-10.6) k/uL RBC (3.80-5.40) m/uL Hgb (11.4-16.0) gm/dL Hct (34.0-46.0) % MCHC (31.0-37.0) g/dL Plt Count (150-450) k/uL Neutrophils # (1.3-7.7) k/uL Lymphocytes # (1.0-4.8) k/uL ABG pH (7.35-7.45) ABG pO2 (83-108) mmHg ABG HCO3 (21-25) mmol/L ABG Total CO2 (19-24) mmol/L Sodium (137-145) mmol/L Potassium 2.9 L (3.5-5.1) mmol/L Chloride (98-107) mmol/L BUN (7-17) mg/dL Creatinine (0.52-1.04) mg/dL Glucose (74-99) mg/dL POC Glucose (mg/dL) 118 H 115 H (75-99) mg/dL Hemoglobin A1c (0.0-6.0) % Calcium (8.4-10.2) mg/dL Phosphorus (2.5-4.5) mg/dL AST (14-36) U/L Creatine Kinase (30-135) U/L Total Protein (6.3-8.2) g/dL Albumin (3.5-5.0) g/dL PTH Intact (14.0-72.0) pg/mL 10/05/21 10/05/21 10/05/21 Range/Units 03:25 03:25 03:25 WBC 26.5 H (3.8-10.6) k/uL RBC 3.08 L (3.80-5.40) m/uL Hgb 8.8 L (11.4-16.0) gm/dL Hct 28.7 L (34.0-46.0) % MCHC 30.5 L (31.0-37.0) g/dL Plt Count 50 L (150-450) k/uL Neutrophils # 25.1 H (1.3-7.7) k/uL Lymphocytes # 0.4 L (1.0-4.8) k/uL ABG pH (7.35-7.45) ABG pO2 (83-108) mmHg ABG HCO3 (21-25) mmol/L ABG Total CO2 (19-24) mmol/L Sodium 133 L (137-145) mmol/L Potassium 3.1 L (3.5-5.1) mmol/L Chloride 93 L (98-107) mmol/L BUN 51 H (7-17) mg/dL Creatinine 2.74 H (0.52-1.04) mg/dL Glucose 114 H (74-99) mg/dL POC Glucose (mg/dL) (75-99) mg/dL Hemoglobin A1c 6.5 H (0.0-6.0) % Calcium 6.3 L* (8.4-10.2) mg/dL Phosphorus (2.5-4.5) mg/dL AST 72 H (14-36) U/L Creatine Kinase (30-135) U/L Total Protein 3.0 L (6.3-8.2) g/dL Albumin 1.6 L (3.5-5.0) g/dL PTH Intact (14.0-72.0) pg/mL 10/05/21 10/05/21 Range/Units 05:49 11:40 WBC (3.8-10.6) k/uL RBC (3.80-5.40) m/uL Hgb (11.4-16.0) gm/dL Hct (34.0-46.0) % MCHC (31.0-37.0) g/dL Plt Count (150-450) k/uL Neutrophils # (1.3-7.7) k/uL Lymphocytes # (1.0-4.8) k/uL ABG pH 7.54 H (7.35-7.45) ABG pO2 80 L (83-108) mmHg ABG HCO3 32 H (21-25) mmol/L ABG Total CO2 33 H (19-24) mmol/L Sodium (137-145) mmol/L Potassium (3.5-5.1) mmol/L Chloride (98-107) mmol/L BUN (7-17) mg/dL Creatinine (0.52-1.04) mg/dL Glucose (74-99) mg/dL POC Glucose (mg/dL) 124 H (75-99) mg/dL Hemoglobin A1c (0.0-6.0) % Calcium (8.4-10.2) mg/dL Phosphorus (2.5-4.5) mg/dL AST (14-36) U/L Creatine Kinase (30-135) U/L Total Protein (6.3-8.2) g/dL Albumin (3.5-5.0) g/dL PTH Intact (14.0-72.0) pg/mL Microbiology - Last 24 Hours (Table) 10/02/21 10:51 Blood Culture - Preliminary Blood No Growth after 48 hours 10/02/21 10:30 Blood Culture - Preliminary Blood No Growth after 48 hours
--- NOTE | 2021-10-05 12:18 | PN ---
PROGRESS NOTE Patient is seen for followup for acute allograft dysfunction and acute kidney injury associated with sepsis, severe hypotension. Patient is currently on very small dose of pressors. She remains on IV fluids. Her urine output has increased, with 24-hour urine output of about 1.8 L. Serum creatinine is today lower than yesterday for the first time. On examination today, blood pressure was 120/68, heart rate 102 per minute. She is afebrile. Examination shows 1+ edema lower extremities. Patient remains on the vent, minimally sedated. Labs show sodium 133, potassium 3.1, chloride 93, BUN 51, creatinine 2.7, calcium 6.3. ASSESSMENT: 1. Acute kidney injury, acute tubular necrosis, secondary to severe hypotension, sepsis, nonoliguric, currently improving. 2. Hypokalemia associated with gastrointestinal fluid loss and currently improving, status post replacement. 3. Severe hypocalcemia, maintained on supplementation. 4. Thrombocytopenia secondary to sepsis. 5. Perforated bowel, status post colectomy and diverting colostomy, postoperative day number 4. 6. History of chronic atrial fibrillation. 7. 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 Her first transplant has failed, and this is a second transplant in 2017. Currently the cyclosporine and Myfortic are on hold. Patient remains on IV steroids. PLAN: Continue with IV fluids. Replace electrolytes. Continue off of cyclosporine and Myfortic for now for another 2 to 3 days. MMODL / IJN: [id number] /
--- NOTE | 2021-10-05 16:39 | PN ---
PROGRESS NOTE DATE OF SERVICE: 10/05/2021 REASON FOR FOLLOWUP: 1. Abdominal sepsis from perforated sigmoid colon. 2. COVID-19 infection. INTERVAL HISTORY: The patient is afebrile. The patient however, requiring pressor support FiO2 is currently at 94%. No significant purulent secretions through the ET or diarrhea reported by the nursing staff. PHYSICAL EXAMINATION: Blood pressure 139/60 with a pulse of 79, temperature 98. She is 93% . General description is an elderly female lying in bed in no distress. Respiratory system: Unlabored breathing, decreased intensity of breath sounds. No wheeze. Heart S1, S2. Regular rate and rhythm. Abdomen soft, no tenderness. LABS: Hemoglobin is 8.9, white count , creatinine is 2.74. DIAGNOSTIC IMPRESSION AND PLAN: 1. Patient with abdominal sepsis from perforated sigmoid colon, status post laparotomy and sigmoid colectomy with diverting colostomy. Patient is covered with Zosyn. That will be continued for now. Monitor clinical course closely. 2. Patient with COVID-19 infection. Continue with the current supportive treatment. 3. Elevated white count, more likely steroid effect. MMODL / IJN: [id number] /
[2021-10-05 19:03] LABS: Glucose,Whole Blood 174 mg/dL (75-99)
[2021-10-05 20:49] LABS: Calcium 6.6 mg/dL (8.4-10.2); Magnesium 2.2 mg/dL (1.6-2.3); Potassium 3.3 mmol/L (3.5-5.1)
[2021-10-05] MEDS ORDERED: POTASSIUM BICARBONATE/CIT AC 20 MEQ TABLET.EFF PO ONE (21:05)
[2021-10-06 00:26] LABS: Glucose,Whole Blood 129 mg/dL (75-99)
[2021-10-06] MEDS: INSULIN ASPART (NovoLOG) 100 UNIT/ML VIAL SQ SCH ×4 (01:27→17:35)
[2021-10-06] MEDS: HYDROCORTISONE SUCCINATE 100 MG/2 ML VIAL IV SCH ×3 (01:30→15:37)
[2021-10-06] MEDS: SODIUM CHLORIDE 0.9% 1,000 ML IV SCH ×2 (01:30→15:41)
[2021-10-06] MEDS: NOREPINEPHRINE 32 MG in SODIUM CHLORIDE 0.9% 218 ML IV SCH (04:08)
[2021-10-06] MEDS: metroNIDAZOLE-NS PMX 500 MG in SALINE 1 100ML.BAG IVPB SCH ×4 (04:10→20:51)
[2021-10-06 04:29] LABS: Basophils # (A) 0.1 k/uL (0-0.2); Basophils % (A) 0 %; Eosinophils % (A) 0 %; HCT 30.2 % (34.0-46.0); HGB 9.5 gm/dL (11.4-16.0); Hypochromasia Slight; Lymphocytes # (A) 0.8 k/uL (1.0-4.8); Lymphocytes % (A) 3 %; MCH 29.5 pg (25.0-35.0); MCHC 31.5 g/dL (31.0-37.0); MCV 93.7 fL (80.0-100.0); Mean Platelet Volume 16.1; Monocytes % (A) 4 %; Neutrophils # (A) 26.1 k/uL (1.3-7.7); Neutrophils % (A) 92 %; RBC 3.22 m/uL (3.80-5.40); RDW 15.2 % (11.5-15.5); WBC 28.3 k/uL (3.8-10.6)
[2021-10-06 04:31] LABS: Platelet Count 72 k/uL (150-450)
[2021-10-06 04:59] LABS: Albumin 1.6 g/dL (3.5-5.0); Calcium 6.6 mg/dL (8.4-10.2); Potassium 3.4 mmol/L (3.5-5.1); Total Bilirubin 1.2 mg/dL (0.2-1.3); Total Protein 3.2 g/dL (6.3-8.2)
[2021-10-06] MEDS ORDERED: POTASSIUM BICARBONATE/CIT AC 20 MEQ TABLET.EFF PO ONE (05:16)
[2021-10-06 05:21] LABS: ABG Base Excess 10.5 mmol/L; ABG HCO3 33 mmol/L (21-25); ABG PCO2 41 mmHg (35-45); ABG PH 7.52 (7.35-7.45); ABG PO2 66 mmHg (83-108); ABG TCO2 35 mmol/L (19-24); Allen Test Performed? Yes
--- NOTE | 2021-10-06 06:45 | XR ---
EXAMINATION TYPE: XR chest 1V portable DATE OF EXAM: 10/06/2021 COMPARISON: 10/05/2021 HISTORY: Shortness of breath TECHNIQUE: Single frontal view of the chest is obtained. FINDINGS: There is moderate stable pulmonary vascular congestion and small bilateral pleural effusio ns left greater than right unchanged. There is no pneumothorax. Heart size is normal. ET tube is 4 cm above the tri. There is no change in the right-sided central venous catheter or NG tube. IMPRESSION: Acute cardiopulmonary disease as described above with no interval change.
[2021-10-06] MEDS: PANTOPRAZOLE 40 MG/10 ML VIAL IV SCH (08:34)
[2021-10-06] MEDS: PIPERACILLIN-TAZOBACTAM 3.375 GM in SODIUM CHLORIDE 0.9% 100 ML IVPB SCH ×2 (08:34→20:52)
[2021-10-06] MEDS: CALCIUM CARBONATE 500 MG CHEWABLE PO SCH ×2 (08:35→20:50)
[2021-10-06] MEDS: CHLORHEXIDINE GLUCONATE 15 ML CUP MUCOUS MEM SCH ×2 (08:35→20:51)
[2021-10-06] MEDS: SODIUM CHLORIDE 0.9% 150 ML with VASOPRESSIN 60 UNIT IV SCH ×2 (08:35)
--- NOTE | 2021-10-06 09:15 | P.PN ---
Subjective Progress Note Date: 10/06/21 81-year-old female patient who presented to the burst department because of an abdominal pain. The patient was found to have free air in the abdomen. A CAT scan of the abdomen was done and the patient was found to have pneumoperitoneum. The patient denied having any fever at home. She did have abdominal pain and nausea. His abdominal pain was of a sudden onset and it occurs at home. No history of any peptic ulcer disease. No history of any inflammatory bowel disease. She is known to have paroxysmal atrial fibrillation and she has been involved in a previous TIA and the patient was treated anticoagulation with Eliquis. 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 Note that her current transplant kidney is the second chest elevation of the patient had. This was given to her back in 2017 at [facility]. During this current admission, the patient had no fevers or chills. She had severe abdominal pain. CAT scan of the abdomen was done in the emergency department and the patient was found to have evidence of moderate size pneumoperitoneum. There was moderate ascites. There was evidence of small bowel wall thickening and mild dilatation and edema of the mesentery consider mesenteric ischemia. She also had a some left lower lobe atelectatic change and cardiomegaly. There was a left-sided pelvic cystic mass. Neurosurgery was consulted and the patient will be taken to the operating room. In the emergency, the patient was intubated and placed on a mechanical ventilator. She was given 3-1/2 L of normal saline. She was started on pressors and the patient is on norepinephrine infusion chronic at 0.5 mcg/kg per minute. Lactic acid level was as high as 12 and currently has improved down to 3.9. Her white cell count is currently at 6.8 with a hemoglobin of 12.7 and platelet coun t of 245. She is currently on a mechanical ventilator on assist control mode at the rate of 26, tidal volume of 300 with an FiO2 of 40% and a PEEP of 5. The pH is 7.34 with a pCO2 of 35 and pO2 is at 83. The patient was given IV Unasyn in the emergency department. General surgeries on the case. The patient will be taken to the operating room. Electrolyte are normal. Reyes catheter has been inserted. She has chronic kidney disease in the creatinine is at 1.8. UA is also abnormal and shows + protein, there are several WBCs consistent for an underlying infection. The current cardiac rhythm is atrial fibrillation with a controlled rate and the patient has frequent 10/02/2021, the patient is postop day #1 the patient was taken to the operating room for an acute pneumoperitoneum an acute abdomen yesterday. The surgery was done and the patient intraoperatively was found to have perforated sigmoid colon. The surgery included exploratory laparotomy, and the patient underwent a sigmoid colectomy and diverting colostomy. Estimated blood loss was around 100 mL. Postop, the patient was kept intubated on a mechanical ventilator and the patient was brought into the ICU for further care. This morning, the patient remains sedated. She is currently on propofol which is running at 25 mL an hour. She is well sedated for now. She is on no paralytics. She remains on a mechanical ventilator. Currently she is on assist control mode of mechanical ventilation and she is currently on assist control of 26, tidal volume of 300, FiO2 of 40% with a PEEP of 5. The morning blood. This showed a pH of 7.25 with a pCO2 of 31 and pO2 of 91. The patient had a chest x-ray today that showed adequate positioning of the orotracheal tube. The patient also has a orogastric tube in place. No evidence of any pneumothorax. The lungs are adequately expanded bilaterally. There is adequate positioning of the a orogastric tube. There is some atelectatic changes in the left lung base. The patient also has a triple-lumen catheter in the right IJ. There is some basilar atelectasis and p ossible effusion the left lung base. Hemodynamically, the patient is still receiving IV fluids. IV fluids are in the form of bicarb infusion at the rate of 75 mL an hour and the rate will be increased up to 150 mL an hour. Patient is also on norepinephrine running at 0.52 mcg/kg per minute. Urine output is in order of 100 mL over the past 12 hours. Overall fluid balance is +2.7 L over the past 24 hours. Meanwhile, the patient's white cell count is at 24.6. Hemoglobin is at 12.6. The serum bicarbonate of 11. Sodium is 136, BUN is a 38 with a creatinine of 3.04 consistent with an acute on top of a chronic kidney disease. Calcium level is down to 5.9 and this needs to be replaced. The patient also had the incidental finding of COVID 19 being positive. Antibiotic coverage includes a combination of Zosyn and Flagyl for now. She has a arterial line catheter. No other significant events otherwise for now. Cultures have been all negative thus far. The patient's cardiac rhythm is atrial fibrillation. Her rate is controlled for now. No anticoagulants for now. No other medication for rate control for now. The patient remains on stress dose hydrocortisone. 10/03 2021, the patient is postop day #2 or neck. Abdomen and pneumoperitoneum and the patient underwent a sigmoid resection with a diverting colostomy. The patient is currently on postop day #2. The patient remains hypotensive, the patient remains septic. The patient requires higher doses of pressors. The patient has also developed an acute on top of chronic kidney failure and this occurred on top of her chronically transplanted kidney. The patient remains intubated on a mechanical ventilator. This morning, the patient is sedated with propofol and propofol is running at 25 mcg/kg per minute which is the same as yesterday and she's been adequately sedated. She is on a mechanical ventilator within assist-control mode and a tidal volume of 300 with a rate of 26 and an FiO2 of 4040% with a PEEP of 5. The blood gas was noted from this morning and showed a pH of 7.45 with a pCO2 of 35 and a pO2 of 80. The chest x-ray from today is showing some limited atelectatic changes and left lung base. The lungs are clear and there is no consolidation or infiltrate. Orotracheal tube remains in a good location. Hemodynamically, the patient remains on IV fluids. The patient is receiving bicarb infusion at the rate of 150 mL an hour. Urine output is in order of 30 or 40 mL an hour and the urine output is essentially improving. Serum bicarbonate currently is at 22 and her acidosis is also improved. Meanwhile, the patient continues to be on pressors. The patient is on norepinephrine infusion which is running at 0.4 to microvascular kilogram per minute. Cultures are all negative thus far. The white cell count from today is at 31.9 and it remains quite elevated. Note that the patient's pro calcitonin level was considerably elevated at a time of admission. Another active issue is development of an acute kidney injury on top of her chronic kidney disease. Noted the patient has history of FSGS and she came in to us with a creatinine of 1. his baseline. During her postoperative course and sepsis, the patient developed an acute kidney injury. Her creatinine today is at 3.52. Nephrology has been on consult. Nephrology has opted to stop the immunosuppressive agents which I agree to as the patient is currently hypotensive and septic. On a separate note, the patient do not to be positive for: 19. Despite that, she is not having any significant respiratory issues and the chest x-ray remains currently intact and stable. In terms of her cardiac rhythm, the patient remains in atrial fibrillation. Rate is controlled for now. She was started on amiodarone drip by cardiology. She was also started on IV heparin. The PTT is supratherapeutic at this point in time and I would suggest discontinuing the IV heparin for now and monitoring her coagulation profile. As far as the am iodarone drip, this can be also discontinued knowing that a heart rate between 101 120 is acceptable on this patient. Calcium level has been quite low and ionized calcium has dropped. I give the patient total of 2 g of calcium yesterday and she'll be given another 2 g today and we'll going to monitor calcium level. Her serum albumin is low. Nevertheless, the ionized calcium is also low. Her platelet counts have also dropped probably related to consumption due to her underlying sepsis. Her current antibiotic coverage is a combination of Zosyn and Flagyl. 10/04/2021, the patient is postop day #3. The patient remains intubated on a mechanical ventilator. Note that the patient was quite hypotensive and septic postop and the patient was requiring considerable amount of pressors and the patient also developed an acute on top of her chronic kidney disease knowing that she has a transplanted kidney and she does have some background chronic renal insufficiency. This morning, the patient remains sedated and the patient is currently on propofol, running at 25 mcg/kg per minute and this is the same level of sedation that was offered to this patient yesterday. The patient remains on a mechanical ventilator, assist control mode, tidal volumes at 300 with a rate of 26 and FiO2 is currently at 40% with a PEEP of 5. Blood gases from today shows a pH of 7.51 with a pCO2 of 38 and pO2 of 85. The chest x-ray from today is showing no significant acute abnormalities. The patient has some atelectatic change in the left lung base. The right lung essentially clear. ET tube remains in excellent location. There may be some increased pulmonary vascular markings perihilar the and in the lower lobes bilaterally. In terms of hemodynamics, the patient remains on IV fluids and currently she is on bicarb infusion at the rate of 150 mL an hour. The patient's blood work shows a serum bicarb level of 26. Sodium is at 131 with a potassium level of 2.9. Renal function stable and the patient has a BUN of 49 with a creatinine of 3.2. We continued to have ongoing problems with hypocalcemia Calcium level including total and ionized have been low. The patient received a total of 4 g of IV calcium yesterday and an additional 2 g was given this morning. The morning calcium level higher to her receiving the last 2 g was at 5.8 total. The patient remains on pressors. The patient is currently on norepinephrine at the rate of 0.13 microvascular kilogram per minute. The patient is also on vasopressin physiologic dose. She remains on stress dose hydrocortisone. Her cardiac rhythm is atrial fibrillation. The patient was taken off the IV amiodarone yesterday. The patient was also having supratherapeutic PTT. The IV heparin is off for now. The patient remains on IV Zosyn and Flagyl as a broad- spectrum antibiotics coverage. The cultures of been all negative thus far. Echo of the heart showed a preserved LV function with an EF of around 55-60%. On today's evaluation, the patient's colostomy is functional and he put out approximately 300 mL of liquid material. Surgical wound site is dry clean and intact. Abdominal bowel sounds are hypoactive at the present. 10/05 2021, the patient is postop day #4. Remains on a mechanical ventilator. He remains sedated with propofol and the patient is currently on 15 mcg/kg per minute. She is adequately sedated for now. She remains on a mechanical ventilator on assist control mode at the rate of 26, tidal volume of 300, FiO2 of 40% with a PEEP of 5. The blood gas from today shows a father respiratory alkalosis and metabolic alkalosis. PH is at 7.54 with a pCO2 of 37 and pO2 of 80. Chest x-ray showing some atelectatic changes and small effusion the lung bases bilaterally. ET tube is in a good location. There is some mild increase in interstitial markings. Note that the patient is a case of Coumadin nightly related pneumonia also. Hemodynamically, the patient is doing better. She has been weaned off on norepinephrine which is currently running at 0.02 microvascular kilogram per minute and vasopressin remains on a physiologic dose. Her renal function continues to improve in the creatinine is down to 2.7. The patient was also having issues with hypocalcemia. She required calcium placement and her serum calcium total currently is up to 6.3. Ionized calcium is pending for now. Her serum albumin was down to 1.6. Her colostomy was functional and she was started on enteral feeding for nutritional support and she is currently on Nepro at the rate of 23 mL an hour. Another concern is her thrombocytopenia as the patient developed consumptive thrombocytopenia. She is currently on anticoagulation with Eliquis. No bleeding. I am concerned about the potential of bleeding this patient I'm recommending discontinuation of the Eliquis for now. We'll continue the combination of Zosyn and Flagyl as broad- spectrum antibiotic coverage. Cultures of been all negative. Bowel sounds are still hypoactive. The patient will need obviously a sedation holiday today and her candidacy for further weaning will be assessed. 10/05 2021, the patient is still on a mechanical ventilator. The patient is postop day #5. This morning, the patient is off sedation. Once off propofol, the patient's blood pressures improved and the patient is also off pressors. Meanwhile, she is still quite sedated. She is not showing adequate neurological recovery or alertness at this point in time and her mental status is being monitored. She remains on a mechanical ventilator. She had an assist-control at the rate of 26, tidal volume of 300, FiO2 of 40% with a PEEP of 5. The blood gases from today shows a pH of 7.52 with a pCO2 of 41 and pO2 of 66. Chest x- ray shows small bilateral pleural effusions. ET tube is in a good location. There is improved aeration bilaterally. Meanwhile, as mentioned, the patient is off pressors. Platelet counts have improved up to 5072. The white cell count is at 28 with a hemoglobin 11.9.5. Renal function shows a creatinine of 2.6 which is stable. BUN is at 61. Sodium is at 138. The patient remains on examination Zosyn and Flagyl. IV fluids are running at the rate of 20 mL an hour. The patient is off pressors. The patient is on stress dose hydrocortiso ne regarding her chronic steroid use. In terms of feeding, the patient was started on Nepro which is running at the rate of 23 mL an hour. The patient is producing stool at this point in time. Her cardiac rhythm is still in atrial fibrillation. The rate is controlled. We have stopped anticoagulation due to concern of underlying thrombocytopenia. Her thrombocytopenia was essentially consumptive related to sepsis. Objective - Vital Signs Vital signs: Vital Signs Temp 98.2 F 10/06/21 08:00 Pulse 100 10/06/21 08:30 Resp 30 H 10/06/21 08:30 BP 101/62 10/06/21 08:30 Pulse Ox 92 L 10/06/21 07:30 Intake & Output 10/05/21 10/06/21 10/06/21 18:59 06:59 18:59 Intake Total 756.464 536.194 102 Output Total 890 790 90 Balance -133.536 -253.806 12 Intake: IV 331 166 26 Pressure Bag 36 36 6 Sodium Chloride 0.9% 1, 295 130 20 000 ml @ 10 mls/hr IV . Q24H [facility] Rx#:[id number] Intake, IV Titration 59.464 4.194 Amount Norepinephrine 32 mg In 2.155 4.194 Sodium Chloride 0.9% 218 ml @ 0.05 MCG/KG/MIN 1. 329 mls/hr IV .Q24H [facility] Rx#:[id number] propofoL 1,000 mg In 57.309 Empty Bag 1 bag @ Titrate IV .Q0M [facility] Rx#: [id number] Tube Feeding 276 276 46 Other 90 90 30 Output: Urine 490 490 90 Stool 400 300 Other: Voiding Method Indwelling Catheter Indwelling Catheter Indwelling Catheter ABP, PAP, CO, CI - Last Documented Arterial Blood Pressure 123/72 - Exam The patient is currently sedated and the patient is currently off propofol . She is on a mechanical ventilator. She is intubated. Orogastric and orotracheal tube are both in place. Output from the OG is minimal at this point in time. Head exam was generally normal. There was no scleral icterus or corneal arcus. Mucous membranes were moist. Neck was supple and without jugular venous distension, thyromegaly, or carotid bruits. Carotids were easily palpable bilaterally. There was no adenopathy. The patient has a right IJ triple-lumen catheter in place. Cardiac exam revealed the PMI to be normally situated and sized. The rhythm is irregular consistent with atrial fibrillation and the patient has extrasystoles that were were noted during several minutes of auscultation. The first and second heart sounds were normal and physiologic splitting of the second heart s ound was noted. There were no murmurs, rubs, clicks, or gallops. Lungs were clear to auscultation and percussion, and with normal diaphragmatic excursion. No wheezes or rales were noted. Examination of the abdomen shows some mild abdominal distention. She has a with abdominal wounds. No significant output in her colostomy bag. No direct tenderness. No rebound tenderness. No guarding. Organs cannot be palpated. The patient has scars of previous kidney chest mentation over the anterior abd ominal wall. The patient has a functional colostomy. There is a total of 300- 400 mL of liquid material accumulating. Bowel sounds are still hypoactive. Surgical wound site is dry clean and intact. No evidence of any wound dehiscence. No evidence of any wound infection. No drains. Examination of the extremities revealed easily palpable radial, femoral and pedal pulses. There was no cyanosis, clubbing or edema. Examination of the skin revealed no evidence of significant rashes, suspicious a ppearing nevi or other concerning lesions. Neurologically the patient sedated for now. Off sadation - Labs CBC & Chem 7: 10/06/21 03:58 10/06/21 03:58 Labs: Abnormal Lab Results - Last 24 Hours (Table) 10/05/21 10/05/21 10/05/21 Range/Units 03:25 11:40 19:00 WBC (3.8-10.6) k/uL RBC (3.80-5.40) m/uL Hgb (11.4-16.0) gm/dL Hct (34.0-46.0) % Plt Count (150-450) k/uL Neutrophils # (1.3-7.7) k/uL Lymphocytes # (1.0-4.8) k/uL ABG pH (7.35-7.45) ABG pO2 (83-108) mmHg ABG HCO3 (21-25) mmol/L ABG Total CO2 (19-24) mmol/L Potassium (3.5-5.1) mmol/L Carbon Dioxide (22-30) mmol/L BUN (7-17) mg/dL Creatinine (0.52-1.04) mg/dL Glucose (74-99) mg/dL POC Glucose (mg/dL) 124 H 174 H (75-99) mg/dL Hemoglobin A1c 6.5 H (0.0-6.0) % Calcium (8.4-10.2) mg/dL Ionized Calcium Ashley (4.5-5.3) mg/dL AST (14-36) U/L Alkaline Phosphatase (38-126) U/L Total Protein (6.3-8.2) g/dL Albumin (3.5-5.0) g/dL 10/05/21 10/05/21 10/06/21 Range/Units 20:17 20:17 00:25 WBC (3.8-10.6) k/uL RBC (3.80-5.40) m/uL Hgb (11.4-16.0) gm/dL Hct (34.0-46.0) % Plt Count (150-450) k/uL Neutrophils # (1.3-7.7) k/uL Lymphocytes # (1.0-4.8) k/uL ABG pH (7.35-7.45) ABG pO2 (83-108) mmHg ABG HCO3 (21-25) mmol/L ABG Total CO2 (19-24) mmol/L Potassium 3.3 L (3.5-5.1) mmol/L Carbon Dioxide (22-30) mmol/L BUN (7-17) mg/dL Creatinine (0.52-1.04) mg/dL Glucose (74-99) mg/dL POC Glucose (mg/dL) 129 H (75-99) mg/dL Hemoglobin A1c (0.0-6.0) % Calcium 6.6 L (8.4-10.2) mg/dL Ionized Calcium Ashley 4.0 L (4.5-5.3) mg/dL AST (14-36) U/L Alkaline Phosphatase (38-126) U/L Total Protein (6.3-8.2) g/dL Albumin (3.5-5.0) g/dL 10/06/21 10/06/21 10/06/21 Range/Units 03:58 03:58 05:18 WBC 28.3 H (3.8-10.6) k/uL RBC 3.22 L (3.80-5.40) m/uL Hgb 9.5 L (11.4-16.0) gm/dL Hct 30.2 L (34.0-46.0) % Plt Count 72 L (150-450) k/uL Neutrophils # 26.1 H (1.3-7.7) k/uL Lymphocytes # 0.8 L (1.0-4.8) k/uL ABG pH 7.52 H (7.35-7.45) ABG pO2 66 L (83-108) mmHg ABG HCO3 33 H (21-25) mmol/L ABG Total CO2 35 H (19-24) mmol/L Potassium 3.4 L (3.5-5.1) mmol/L Carbon Dioxide 32 H (22-30) mmol/L BUN 61 H (7-17) mg/dL Creatinine 2.66 H (0.52-1.04) mg/dL Glucose 117 H (74-99) mg/dL POC Glucose (mg/dL) (75-99) mg/dL Hemoglobin A1c (0.0-6.0) % Calcium 6.6 L (8.4-10.2) mg/dL Ionized Calcium Ashley (4.5-5.3) mg/dL AST 47 H (14-36) U/L Alkaline Phosphatase 146 H (38-126) U/L Total Protein 3.2 L (6.3-8.2) g/dL Albumin 1.6 L (3.5-5.0) g/dL Microbiology - Last 24 Hours (Table) 10/02/21 10:51 Blood Culture - Preliminary Blood No Growth after 72 hours 10/02/21 10:30 Blood Culture - Preliminary Blood No Growth after 72 hours Assessment and Plan Plan: 1 acute pneumoperitoneum. The patient was found to have an acute perforated sigmoid colon. The patient underwent colectomy and diverting colostomy and the patient is currently postop day #5. Patient continues to be hypotensive in shock state related to postoperative sepsis. The patient remains in atrial fibrillation. The patient has developed an acute on top of her chronic kidney injury. She is covered with broad-spectrum antibiotics patient remains intubated on a mechanical ventilator. He is currently off pressors. Her colostomy is functional and the patient is receiving enteral feeding for nutritional support. 2 acute hypoxic respiratory failure secondary to above, currently intubated on a mechanical ventilator. 3 septic shock in the setting of an acute abdomen and pneumoperitoneum, currently off pressors and IV fluids are at KVO. 4 acute lactic acidosis, improving. 5 history of kidney transplantation maintained on immunosuppressive agents including a combination of CellCept, cyclosporine and prednisone 6 acute on top of chronic kidney disease , creatinine is improving 7 history of FSGS requiring transfer patient 2 in the most recent chest elevation was done in 2006 8 history of chronic atrial fibrillation with a previous history of TIA, maintained on long-term and is controlled and the patient is not taking any form of anticoagulants at this point in time other than compression devices to lower extremities. 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 This could be atelectasis/fluid as the patient was aggressively resuscitated. 14 postoperative atelectatic changes in lung bases as evident on today's chest x-ray 15 acquired thrombocytopenia, stable for now and the patient was on anticoagulation with Eliquis. Shei is off anticoagulation and her PLT is improving 16 hypocalcemia, will be discussed with nephrology. Calcium level is being replaced. Check vitamin D, check intact PTH. Calcium level is improved PLAN: Continue ventilator support. IVF at KVO Off pressors for now Continue combination of Zosyn and Flagyl Continue Stress dose hydrocortisone as the patient has been on prednisone on long-term basis and the patient will be given hydrocortisone 100 mg every 8 hours IV protonix Monitor plt count DC Eliquis , use Lovenoc only DVT prophylaxis DC amiodarone Monitor platelets echocardiogram showed preserved left ventricular systolic function with ejection fraction 55-60% We'll continue with pressors for now, wean off if possible today Urine cultures and blood cultures pending Nephrology consulted regarding her kidney transplantation Off Immunosuppression Enteral feeding i-pth and vit d3 level levels checked Sedation holiday and assess candidacy for weaning. Check weaning parameters and sized accordingly. Condition is critical we'll continue to follow and make further recommendations based on her progress. Critical care time 34 minutes Time with Patient: Greater than 30
[2021-10-06 11:25] LABS: Glucose,Whole Blood 136 mg/dL (75-99)
--- NOTE | 2021-10-06 11:27 | P.PN ---
Progress Note - Text Progress Note Date: 10/05/21 Patient remains unchanged. She has been on a sedation holiday. She does not SIGNIFICANT. Vital signs remain stable. Abdomen is soft. Colostomy dysfunction. Status post exploratory laparotomy for perforated diverticulitis. Patient has metabolic encephalopathy. She'll continue to have supportive care.
--- NOTE | 2021-10-06 11:28 | P.PN ---
Progress Note - Text Progress Note Date: 10/06/21 Patient still appears to be encephalopathic. Her vital signs are stable. Abdomen soft. Incision is clean dry intact. Colostomy dysfunction. Encephalopathy. This is most likely metabolic in nature. Leukocytosis. Patient received IV antibiotics. Patient may require long-term intubation
[2021-10-06] MEDS: ENOXAPARIN 30 MG/0.3 ML SYRINGE SQ SCH (11:32)
--- NOTE | 2021-10-06 11:37 | PN ---
PROGRESS NOTE Patient is seen for followup for acute kidney injury, mostly ATN, with acute allograft dysfunction associated with sepsis and profound hypotension. Urine output has picked up. Serum creatinine has started to decrease. Patient is currently off of all pressors. Urine output at 40 to 50 mL/hour. IV fluids were discontinued yesterday. On examination today, case is discussed with nursing staff. Patient remains on the vent. FiO2 is at 40%. Blood pressure 112/81, heart rate 101 per minute. She is afebrile. Trace edema noted, lower extremities. Lungs and heart are not examined. Labs show sodium 138, potassium 3.4, chloride 99. CO2 is 32, BUN 61, creatinine 2.6, hemoglobin 9.5 g/dL. ASSESSMENT: 1. Acute kidney injury with acute allograft dysfunction secondary to profound hypotension, sepsis, currently improving with improved urine output and decreasing creatinine. IV fluids have been discontinued. Patient has had aggressive IV resuscitation. 2. 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 Patient is maintained on IV steroids. Her cyclosporine and CellCept are currently on hold due to significant hypotension and sepsis. We can resume cyclosporine starting tomorrow with low dose. Continue with the IV steroids for now. 3. Hypokalemia, currently being replaced. 4. Hypocalcemia associated with severe sepsis, hypotension. 25 hydroxy vitamin D level was 35.9. Patient is maintained on calcium supplementation. 5. Pneumoperitoneum with perforated bowel, status post colectomy, diverting colostomy, maintained on IV antibiotics. PLAN: Repeat labs in a.m. Replace potassium. Continue off of IV fluids. Start cyclosporine 25 mg b.i.d. from tomorrow. Continue to hold off on the Myfortic for another few days. Continue with IV steroids. MMODL / IJN: [id number] /
--- NOTE | 2021-10-06 12:22 | P.PN ---
Subjective Progress Note Date: 10/06/21 HISTORY OF PRESENT ILLNESS This is an 81-year-old pleasant female patient of Dr. Henao, with known history of hypertension, CK D stage III, paroxysmal atrial fibrillation admitted through the emergency room secondary to abdominal pain and found to have pneumoperitoneum. She has significant discomfort, accompanied by nausea, vomiting, no fever. She presented to emergency room with normal findings, in the CAT scan showing moderate pneumoperitoneum, with small bowel thickening, and mild dilatation jayne ma of the mesenteric considered for mesenteric ischemia there is a left-sided pelvic cystic mass. Chest x-ray shows atelectasis, She is hypotensive, when seen, lactic acid level is high at 12, she was having difficulty of breathing with tachypnea, hence she was preemptively intubated in the emergency room,. She was placed on assist-control, rate of 26, FiO2 40%, PEEP of 5 at the volume of 300. She was sent ICU for stabilization requiring norepinephrine infusion at 0.5 mcg/kg/m for hypotension and septic shock, she received 3.5 L of normal saline for which she is now undergoing exploratory laparotomy. Consult was made with Dr. Price surgeon, and Dr. Nino, critical care ICU physician incidentally, she was tested confirmed Covid positive, on October 0110/02: Patient is seen today in the intensive care unit, remains intubated and on mechanical ventilation with tidal volume 300, FiO2 40 and PEEP of 5. Patient is currently on propofol, bicarb drip, amiodarone is being started for A. fib. Patient is on antibiotics the form of Zosyn and Flagyl. Repeat chest x-ray reveals basilar atelectasis, correlate to exclude pneumonia, possible effusion. 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 Repeat blood work today reveals WBC 24.6, hemoglobin 12.1, platelet count 123. Sodium 136, potassium 4.5, chloride 109, CO2 11, BUN 38 creatinine 3.04. Calcium 5.9. AST 109. Patient remains in isolation for Covid 19. 10/03: Remains intubated on mechanical ventilation with tidal volume 300, FiO2 40, PEEP of 5. She has had very minimal amount output on ostomy. She has been on high-dose levo fed started on vasopressin as well and heparin drip is off due to elevated PTT. She has no output from her OG. Urine output has improved. 10/04: She remains intubated and on mechanical ventilation with tidal volume 300, FiO2 40 and PEEP of 5. Patient started having output from ostomy last evening, liquid brown approximate 950 ML's. Calcium is being replaced. She is still on low-dose norepinephrine and vasopressin as well as IV fluids. Anticipate she will start oral medications and feedings today. Chest x-ray reveals stable bilateral infiltrate and pleural effusion. 10/05 patient remains intubated, PEEP of 5, O2 40% Dilaudid, pressures are little bit on the lower side, still with norepinephrine titrated with bp, NG feedings at 23 mL an hour, output noted in colostomy, no plans for vent weaning at this time in output is adequate patient is on Cortef 100 mg every 8 hours, was on oral prednisone chronically prior to admission. Ahlquist is still on hold, on IV Zosyn and Flagyl 10/06 and rate in the 110s, blood pressure 125/92, remains to be intubated, assist control 16, with FiO2 40%, PEEP of 5. Slightly labored breathing colostomy, without no blood, NG feedings. On Zosyn and Flagyl multiple specialists following, patient remains in ICU Review of SYSTEMS ROS unobtainable: due to endotracheal tube PHYSICAL EXAMINATION Gen: This is an 81-year-old female, resting on the ICU bed and appears to be comfortable. ET and orogastric tube in place. HEENT: Head is atraumatic, normocephalic. Pupils equal, round. Sclerae is anicteric. NECK: Supple. No JVD. No lymphadenopathy. No thyromegaly. LUNGS: Clear to auscultation. No wheezes or rhonchi. No intercostal retractions. HEART: Regular rate and rhythm. No murmur. ABDOMEN: Soft. Mild abdominal distention. No tenderness. No output in colos nimo bag. Reyes catheter is in place draining dark meir urine. EXTREMITIES: No pedal edema. No calf tenderness. NEUROLOGICAL: Patient is intubated. ASSESSMENT AND PLAN 1. Acute pneumoperitoneum, with peritonitis considered for small bowel perforation, underlying ischemic bowel, requiring mechanical intubation, on the emergency department. General surgery, is working on her exploratory laparotomy 10/01/2020. She has severe lactic acidosis, hypotension, septic shock. She is now requiring fluid resuscitations, 63.5 L at the emergency room, and is on pressors and IV antibiotics. Consult Dr. acharya and continue on Zosyn and Flagyl. Patient is on stress dose of hydrocortisone 100 mg every 8 hours. 2. Small bowel perforation suspected, with septic shock, explore lap on 10/01/1908/10/2022, IV Zosyn 3. Septic shock, IV antibiotics, with fluids w/o pressors 4. History of kidney transplantation, on immunosuppressive agent, CellCept and prednisone and cyclosporine 5. CKD, suspect stage III, 6. chronic atrial fibrillation, with prior TIA. Eliquis resumed on 10/04 7. Covid 19 infection, unknown infection time and onset of signs and symptoms, vaccination status not Determined, consult Dr. Acharya 8. Osteoporosis 9. Breast cancer, with lobular carcinoma in situ, had surgery for these activity unknown, 10. 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 Carmona. 11. Hypocalcemia. Continue to monitor and replace 12. Thrombocytopenia secondary to sepsis. Continue to monitor. 13. DVT prophylaxis GI prophylaxis Prognosis guarded CODE STATUS, full until specified Prognosis guarded. Current Medications Calcium Carbonate/Glycine (Calcium Carbonate 500 Mg Chewable) 1,000 mg PO BID [facility] Last Admin: 10/06/21 08:35 Dose: 1,000 mg Documented by: Chlorhexidine Gluconate (Chlorhexidine Gluconate 15 Ml Cup) 15 ml MUCOUS MEM BID [facility] Last Admin: 10/06/21 08:35 Dose: 15 ml Documented by: Cyclosporine (Cyclosporine 25 Mg Cap) 25 mg PO BID [facility] Enoxaparin Sodium (Enoxaparin 30 Mg/0.3 Ml Syringe) 30 mg SQ DAILY [facility] Last Admin: 10/06/21 11:32 Dose: 30 mg Documented by: Ergocalciferol (Ergocalciferol 1,250 Mcg (50,000 Iu) Capsule) 1,250 mcg PO Q7D [facility] Last Admin: 10/04/21 11:37 Dose: 1,250 mcg Documented by: Hydrocortisone Sodium Succinate (Hydrocortisone Succinate 100 Mg/2 Ml Vial) 100 mg IV Q8HR [facility] Last Admin: 10/06/21 08:34 Dose: 100 mg Documented by: Hydromorphone HCl (Hydromorphone 0.5 Mg/0.5 Ml Syringe) 0.5 mg IVP Q4HR PRN PRN Reason: Moderate Pain Last Admin: 10/05/21 11:33 Dose: 0.5 mg Documented by: Propofol 1,000 mg/ IV Solution 100 mls @ 0 mls/hr IV .Q0M [facility]; Protocol Last Titration: 10/05/21 16:54 Dose: 0 mcg/kg/min, 0 mls/hr Documented by: Piperacillin Sod/Tazobactam (Sod 3.375 gm/ Sodium Chloride) 100 mls @ 25 mls/hr IVPB Q12H [facility] Last Admin: 10/06/21 08:34 Dose: 25 mls/hr Documented by: Metronidazole 500 mg/ IV (Solution) 100 mls @ 100 mls/hr IVPB Q6H [facility] Last Admin: 10/06/21 08:34 Dose: 100 mls/hr Documented by: Norepinephrine Bitartrate 32 (mg/ Sodium Chloride) 250 mls @ 1.329 mls/hr IV .Q24H [facility]; Protocol Last Admin: 10/06/21 04:08 Dose: Not Given Documented by: Sodium Chloride (Saline 0.9%) 1,000 mls @ 10 mls/hr IV .Q24H [facility] Last Admin: 10/06/21 01:30 Dose: 10 mls/hr Documented by: Insulin Aspart (Insulin Aspart (Novolog) 100 Unit/Ml Vial) 0 unit SQ Q6H [facility]; Protocol Last Admin: 10/06/21 11:26 Dose: Not Given Documented by: Miscellaneous Information (Potassium Replacement Protocol 1 Each Misc) 1 each MISCELLANE DAILY PRN; Protocol PRN Reason: Per Protocol Naloxone HCl (Naloxone 0.4 Mg/Ml 1 Ml Vial) 0.2 mg IV Q2M PRN PRN Reason: Opioid Reversal Pantoprazole Sodium (Pantoprazole 40 Mg/10 Ml Vial) 40 mg IV DAILY [facility] Last Admin: 10/06/21 08:34 Dose: 40 mg Documented by: Vital Signs Temp 98.2 F 10/06/21 08:00 Pulse 94 10/06/21 11:00 Resp 32 H 10/06/21 11:00 BP 90/72 10/06/21 11:00 Pulse Ox 92 L 10/06/21 11:00 Intake & Output 10/05/21 10/06/21 10/06/21 18:59 06:59 18:59 Intake Total 756.464 536.194 210 Output Total 890 790 215 Balance -133.536 -253.806 -5 Intake: IV 331 166 65 Pressure Bag 36 36 15 Sodium Chloride 0.9% 1, 295 130 50 000 ml @ 10 mls/hr IV . Q24H [facility] Rx#:[id number] Intake, IV Titration 59.464 4.194 Amount Norepinephrine 32 mg In 2.155 4.194 Sodium Chloride 0.9% 218 ml @ 0.05 MCG/KG/MIN 1. 329 mls/hr IV .Q24H [facility] Rx#:[id number] propofoL 1,000 mg In 57.309 Empty Bag 1 bag @ Titrate IV .Q0M [facility] Rx#: [id number] Tube Feeding 276 276 115 Other 90 90 30 Output: Urine 490 490 215 Stool 400 300 Other: Voiding Method Indwelling Catheter Indwelling Catheter Indwelling Catheter ABP, PAP, CO, CI - Last Documented Arterial Blood Pressure 108/61 Laboratory Results - Last 24 Hours 10/05/21 10/05/21 10/05/21 19:00 20:17 20:17 WBC RBC Hgb Hct MCV MCH MCHC RDW Plt Count MPV Neutrophils % Lymphocytes % Monocytes % Eosinophils % Basophils % Neutrophils # Lymphocytes # Monocytes # Eosinophils # Basophils # Hypochromasia Sample Site ABG pH ABG pCO2 ABG pO2 ABG HCO3 ABG Total CO2 ABG O2 Saturation ABG Base Excess Jakob Test FiO2 Sodium Potassium 3.3 L Chloride Carbon Dioxide Anion Gap BUN Creatinine Est GFR (CKD-EPI)AfAm Est GFR (CKD-EPI)NonAf Glucose POC Glucose (mg/dL) 174 H POC Glu Swing Grinder ID Putze, Cassie Calcium 6.6 L Ionized Calcium Ashley 4.0 L Magnesium 2.2 Total Bilirubin AST ALT Alkaline Phosphatase Total Protein Albumin 10/06/21 10/06/21 10/06/21 00:25 03:58 03:58 WBC 28.3 H RBC 3.22 L Hgb 9.5 L Hct 30.2 L MCV 93.7 MCH 29.5 MCHC 31.5 RDW 15.2 Plt Count 72 L MPV 16.1 Neutrophils % 92 Lymphocytes % 3 Monocytes % 4 Eosinophils % 0 Basophils % 0 Neutrophils # 26.1 H Lymphocytes # 0.8 L Monocytes # 1.0 Eosinophils # 0.0 Basophils # 0.1 Hypochromasia Slight Sample Site ABG pH ABG pCO2 ABG pO2 ABG HCO3 ABG Total CO2 ABG O2 Saturation ABG Base Excess Jakob Test FiO2 Sodium 138 Potassium 3.4 L Chloride 99 Carbon Dioxide 32 H Anion Gap 7 BUN 61 H Creatinine 2.66 H Est GFR (CKD-EPI)AfAm 19 Est GFR (CKD-EPI)NonAf 16 Glucose 117 H POC Glucose (mg/dL) 129 H POC Glu Swing Grinder ID Doni Arceo Calcium 6.6 L Ionized Calcium Ashley Magnesium Total Bilirubin 1.2 AST 47 H ALT 9 Alkaline Phosphatase 146 H Total Protein 3.2 L Albumin 1.6 L 10/06/21 10/06/21 10/06/21 05:18 10:48 11:24 WBC RBC Hgb Hct MCV MCH MCHC RDW Plt Count MPV Neutrophils % Lymphocytes % Monocytes % Eosinophils % Basophils % Neutrophils # Lymphocytes # Monocytes # Eosinophils # Basophils # Hypochromasia Sample Site a-line ABG pH 7.52 H ABG pCO2 41 ABG pO2 66 L ABG HCO3 33 H ABG Total CO2 35 H ABG O2 Saturation 94.0 ABG Base Excess 10.5 Jakob Test Yes FiO2 40 Sodium Potassium 3.5 Chloride Carbon Dioxide Anion Gap BUN Creatinine Est GFR (CKD-EPI)AfAm Est GFR (CKD-EPI)NonAf Glucose POC Glucose (mg/dL) 136 H POC Glu Swing Grinder ID Tiago Hurley Calcium Ionized Calcium Ashley Magnesium Total Bilirubin AST ALT Alkaline Phosphatase Total Protein Albumin Active Medications Calcium Carbonate/Glycine (Calcium Carbonate 500 Mg Chewable) 1,000 mg PO BID [facility] Last Admin: 10/06/21 08:35 Dose: 1,000 mg Documented by: Chlorhexidine Gluconate (Chlorhexidine Gluconate 15 Ml Cup) 15 ml MUCOUS MEM BID [facility] Last Admin: 10/06/21 08:35 Dose: 15 ml Documented by: Cyclosporine (Cyclosporine 25 Mg Cap) 25 mg PO BID [facility] Enoxaparin Sodium (Enoxaparin 30 Mg/0.3 Ml Syringe) 30 mg SQ DAILY [facility] Last Admin: 10/06/21 11:32 Dose: 30 mg Documented by: Ergocalciferol (Ergocalciferol 1,250 Mcg (50,000 Iu) Capsule) 1,250 mcg PO Q7D [facility] Last Admin: 10/04/21 11:37 Dose: 1,250 mcg Documented by: Hydrocortisone Sodium Succinate (Hydrocortisone Succinate 100 Mg/2 Ml Vial) 100 mg IV Q8HR [facility] Last Admin: 10/06/21 08:34 Dose: 100 mg Documented by: Hydromorphone HCl (Hydromorphone 0.5 Mg/0.5 Ml Syringe) 0.5 mg IVP Q4HR PRN PRN Reason: Moderate Pain Last Admin: 10/05/21 11:33 Dose: 0.5 mg Documented by: Propofol 1,000 mg/ IV Solution 100 mls @ 0 mls/hr IV .Q0M [facility]; Protocol Last Titration: 10/05/21 16:54 Dose: 0 mcg/kg/min, 0 mls/hr Documented by: Piperacillin Sod/Tazobactam (Sod 3.375 gm/ Sodium Chloride) 100 mls @ 25 mls/hr IVPB Q12H [facility] Last Admin: 10/06/21 08:34 Dose: 25 mls/hr Documented by: Metronidazole 500 mg/ IV (Solution) 100 mls @ 100 mls/hr IVPB Q6H [facility] Last Admin: 10/06/21 08:34 Dose: 100 mls/hr Documented by: Norepinephrine Bitartrate 32 (mg/ Sodium Chloride) 250 mls @ 1.329 mls/hr IV .Q24H [facility]; Protocol Last Admin: 10/06/21 04:08 Dose: Not Given Documented by: Sodium Chloride (Saline 0.9%) 1,000 mls @ 10 mls/hr IV .Q24H [facility] Last Admin: 10/06/21 01:30 Dose: 10 mls/hr Documented by: Insulin Aspart (Insulin Aspart (Novolog) 100 Unit/Ml Vial) 0 unit SQ Q6H [facility]; Protocol Last Admin: 10/06/21 11:26 Dose: Not Given Documented by: Miscellaneous Information (Pot[facility] Replacement [facility]) 1 each M ISCELLANE DAILY PRN; Protocol PRN Reason: Per Protocol Naloxone HCl (Naloxone 0.4 Mg/Ml 1 Ml Vial) 0.2 mg IV Q2M PRN PRN Reason: Opioid Reversal Pantoprazole Sodium (Pantoprazole 40 Mg/10 Ml Vial) 40 mg IV DAILY [facility] Last Admin: 10/06/21 08:34 Dose: 40 mg Documented by: Vital Signs Temp 98.2 F 10/06/21 08:00 Pulse 94 10/06/21 11:00 Resp 32 H 10/06/21 11:00 BP 90/72 10/06/21 11:00 Pulse Ox 92 L 10/06/21 11:00 Intake & Output 10/05/21 10/06/21 10/06/21 18:59 06:59 18:59 Intake Total 756.464 536.194 210 Output Total 890 790 215 Balance -133.536 -253.806 -5 Intake: IV 331 166 65 Pressure Bag 36 36 15 Sodium Chloride 0.9% 1, 295 130 50 000 ml @ 10 mls/hr IV . Q24H [facility] Rx#:[id number] Intake, IV Titration 59.464 4.194 Amount Norepinephrine 32 mg In 2.155 4.194 Sodium Chloride 0.9% 218 ml @ 0.05 MCG/KG/MIN 1. 329 mls/hr IV .Q24H [facility] Rx#:[id number] propofoL 1,000 mg In 57.309 Empty Bag 1 bag @ Titrate IV .Q0M [facility] Rx#: [id number] Tube Feeding 276 276 115 Other 90 90 30 Output: Urine 490 490 215 Stool 400 300 Other: Voiding Method Indwelling Catheter Indwelling Catheter Indwelling Catheter ABP, PAP, CO, CI - Last Documented Arterial Blood Pressure 108/61 Objective - Vital Signs Vital signs: Vital Signs Temp 98.2 F 10/06/21 08:00 Pulse 94 10/06/21 11:00 Resp 32 H 10/06/21 11:00 BP 90/72 10/06/21 11:00 Pulse Ox 92 L 10/06/21 11:00 Intake & Output 10/05/21 10/06/21 10/06/21 18:59 06:59 18:59 Intake Total 756.464 536.194 210 Output Total 890 790 215 Balance -133.536 -253.806 -5 Intake: IV 331 166 65 Pressure Bag 36 36 15 Sodium Chloride 0.9% 1, 295 130 50 000 ml @ 10 mls/hr IV . Q24H [facility] Rx#:[id number] Intake, IV Titration 59.464 4.194 Amount Norepinephrine 32 mg In 2.155 4.194 Sodium Chloride 0.9% 218 ml @ 0.05 MCG/KG/MIN 1. 329 mls/hr IV .Q24H [facility] Rx#:[id number] propofoL 1,000 mg In 57.309 Empty Bag 1 bag @ Titrate IV .Q0M [facility] Rx#: [id number] Tube Feeding 276 276 115 Other 90 90 30 Output: Urine 490 490 215 Stool 400 300 Other: Voiding Method Indwelling Catheter Indwelling Catheter Indwelling Catheter ABP, PAP, CO, CI - Last Documented Arterial Blood Pressure 108/61 - Labs CBC & Chem 7: 10/06/21 03:58 10/06/21 10:48 Labs: Abnormal Lab Results - Last 24 Hours (Table) 10/05/21 10/05/21 10/05/21 Range/Units 19:00 20:17 20:17 WBC (3.8-10.6) k/uL RBC (3.80-5.40) m/uL Hgb (11.4-16.0) gm/dL Hct (34.0-46.0) % Plt Count (150-450) k/uL Neutrophils # (1.3-7.7) k/uL Lymphocytes # (1.0-4.8) k/uL ABG pH (7.35-7.45) ABG pO2 (83-108) mmHg ABG HCO3 (21-25) mmol/L ABG Total CO2 (19-24) mmol/L Potassium 3.3 L (3.5-5.1) mmol/L Carbon Dioxide (22-30) mmol/L BUN (7-17) mg/dL Creatinine (0.52-1.04) mg/dL Glucose (74-99) mg/dL POC Glucose (mg/dL) 174 H (75-99) mg/dL Calcium 6.6 L (8.4-10.2) mg/dL Ionized Calcium Ashley 4.0 L (4.5-5.3) mg/dL AST (14-36) U/L Alkaline Phosphatase (38-126) U/L Total Protein (6.3-8.2) g/dL Albumin (3.5-5.0) g/dL 10/06/21 10/06/21 10/06/21 Range/Units 00:25 03:58 03:58 WBC 28.3 H (3.8-10.6) k/uL RBC 3.22 L (3.80-5.40) m/uL Hgb 9.5 L (11.4-16.0) gm/dL Hct 30.2 L (34.0-46.0) % Plt Count 72 L (150-450) k/uL Neutrophils # 26.1 H (1.3-7.7) k/uL Lymphocytes # 0.8 L (1.0-4.8) k/uL ABG pH (7.35-7.45) ABG pO2 (83-108) mmHg ABG HCO3 (21-25) mmol/L ABG Total CO2 (19-24) mmol/L Potassium 3.4 L (3.5-5.1) mmol/L Carbon Dioxide 32 H (22-30) mmol/L BUN 61 H (7-17) mg/dL Creatinine 2.66 H (0.52-1.04) mg/dL Glucose 117 H (74-99) mg/dL POC Glucose (mg/dL) 129 H (75-99) mg/dL Calcium 6.6 L (8.4-10.2) mg/dL Ionized Calcium Ashley (4.5-5.3) mg/dL AST 47 H (14-36) U/L Alkaline Phosphatase 146 H (38-126) U/L Total Protein 3.2 L (6.3-8.2) g/dL Albumin 1.6 L (3.5-5.0) g/dL 10/06/21 10/06/21 Range/Units 05:18 11:24 WBC (3.8-10.6) k/uL RBC (3.80-5.40) m/uL Hgb (11.4-16.0) gm/dL Hct (34.0-46.0) % Plt Count (150-450) k/uL Neutrophils # (1.3-7.7) k/uL Lymphocytes # (1.0-4.8) k/uL ABG pH 7.52 H (7.35-7.45) ABG pO2 66 L (83-108) mmHg ABG HCO3 33 H (21-25) mmol/L ABG Total CO2 35 H (19-24) mmol/L Potassium (3.5-5.1) mmol/L Carbon Dioxide (22-30) mmol/L BUN (7-17) mg/dL Creatinine (0.52-1.04) mg/dL Glucose (74-99) mg/dL POC Glucose (mg/dL) 136 H (75-99) mg/dL Calcium (8.4-10.2) mg/dL Ionized Calcium Ashley (4.5-5.3) mg/dL AST (14-36) U/L Alkaline Phosphatase (38-126) U/L Total Protein (6.3-8.2) g/dL Albumin (3.5-5.0) g/dL Microbiology - Last 24 Hours (Table) 10/02/21 10:51 Blood Culture - Preliminary Blood No Growth after 72 hours 10/02/21 10:30 Blood Culture - Preliminary Blood No Growth after 72 hours
[2021-10-06] MEDS: HYDROmorphone 0.5 MG/0.5 ML SYRINGE IVP PRN (12:38)
--- NOTE | 2021-10-06 13:03 | P.PN ---
Subjective Patient remains in atrial fibrillation with a controlled ventricular response at 100 beats a minute She had thrombocytopenia on IV heparin which was discontinued Anticoagulation with oral anticoagulants has not been started yet However today the ICU team restarted DVT prophylaxis with low-dose Lovenox since her platelets were improving From a cardiac standpoint she is not on amiodarone she did not need rate control medications As long as her heart rate 70s be well controlled no cardiac medications for now Once she recovers then anti-coagulation needs to be restarted and oral rate control medications, atenolol needs to be restarted as per her home dose Objective - Vital Signs Vital signs: Vital Signs Temp 98.2 F 10/06/21 08:00 Pulse 94 10/06/21 11:00 Resp 32 H 10/06/21 11:00 BP 90/72 10/06/21 11:00 Pulse Ox 92 L 10/06/21 11:00 Intake & Output 10/05/21 10/06/21 10/06/21 18:59 06:59 18:59 Intake Total 756.464 536.194 210 Output Total 890 790 215 Balance -133.536 -253.806 -5 Intake: IV 331 166 65 Pressure Bag 36 36 15 Sodium Chloride 0.9% 1, 295 130 50 000 ml @ 10 mls/hr IV . Q24H [facility] Rx#:[id number] Intake, IV Titration 59.464 4.194 Amount Norepinephrine 32 mg In 2.155 4.194 Sodium Chloride 0.9% 218 ml @ 0.05 MCG/KG/MIN 1. 329 mls/hr IV .Q24H [facility] Rx#:[id number] propofoL 1,000 mg In 57.309 Empty Bag 1 bag @ Titrate IV .Q0M [facility] Rx#: [id number] Tube Feeding 276 276 115 Other 90 90 30 Output: Urine 490 490 215 Stool 400 300 Other: Voiding Method Indwelling Catheter Indwelling Catheter Indwelling Catheter ABP, PAP, CO, CI - Last Documented Arterial Blood Pressure 108/61 - Labs CBC & Chem 7: 10/06/21 03:58 10/06/21 10:48 Labs: Abnormal Lab Results - Last 24 Hours (Table) 10/05/21 10/05/21 10/05/21 Range/Units 19:00 20:17 20:17 WBC (3.8-10.6) k/uL RBC (3.80-5.40) m/uL Hgb (11.4-16.0) gm/dL Hct (34.0-46.0) % Plt Count (150-450) k/uL Neutrophils # (1.3-7.7) k/uL Lymphocytes # (1.0-4.8) k/uL ABG pH (7.35-7.45) ABG pO2 (83-108) mmHg ABG HCO3 (21-25) mmol/L ABG Total CO2 (19-24) mmol/L Potassium 3.3 L (3.5-5.1) mmol/L Carbon Dioxide (22-30) mmol/L BUN (7-17) mg/dL Creatinine (0.52-1.04) mg/dL Glucose (74-99) mg/dL POC Glucose (mg/dL) 174 H (75-99) mg/dL Calcium 6.6 L (8.4-10.2) mg/dL Ionized Calcium Ashley 4.0 L (4.5-5.3) mg/dL AST (14-36) U/L Alkaline Phosphatase (38-126) U/L Total Protein (6.3-8.2) g/dL Albumin (3.5-5.0) g/dL 10/06/21 10/06/21 10/06/21 Range/Units 00:25 03:58 03:58 WBC 28.3 H (3.8-10.6) k/uL RBC 3.22 L (3.80-5.40) m/uL Hgb 9.5 L (11.4-16.0) gm/dL Hct 30.2 L (34.0-46.0) % Plt Count 72 L (150-450) k/uL Neutrophils # 26.1 H (1.3-7.7) k/uL Lymphocytes # 0.8 L (1.0-4.8) k/uL ABG pH (7.35-7.45) ABG pO2 (83-108) mmHg ABG HCO3 (21-25) mmol/L ABG Total CO2 (19-24) mmol/L Potassium 3.4 L (3.5-5.1) mmol/L Carbon Dioxide 32 H (22-30) mmol/L BUN 61 H (7-17) mg/dL Creatinine 2.66 H (0.52-1.04) mg/dL Glucose 117 H (74-99) mg/dL POC Glucose (mg/dL) 129 H (75-99) mg/dL Calcium 6.6 L (8.4-10.2) mg/dL Ionized Calcium Ashley (4.5-5.3) mg/dL AST 47 H (14-36) U/L Alkaline Phosphatase 146 H (38-126) U/L Total Protein 3.2 L (6.3-8.2) g/dL Albumin 1.6 L (3.5-5.0) g/dL 10/06/21 10/06/21 Range/Units 05:18 11:24 WBC (3.8-10.6) k/uL RBC (3.80-5.40) m/uL Hgb (11.4-16.0) gm/dL Hct (34.0-46.0) % Plt Count (150-450) k/uL Neutrophils # (1.3-7.7) k/uL Lymphocytes # (1.0-4.8) k/uL ABG pH 7.52 H (7.35-7.45) ABG pO2 66 L (83-108) mmHg ABG HCO3 33 H (21-25) mmol/L ABG Total CO2 35 H (19-24) mmol/L Potassium (3.5-5.1) mmol/L Carbon Dioxide (22-30) mmol/L BUN (7-17) mg/dL Creatinine (0.52-1.04) mg/dL Glucose (74-99) mg/dL POC Glucose (mg/dL) 136 H (75-99) mg/dL Calcium (8.4-10.2) mg/dL Ionized Calcium Ashley (4.5-5.3) mg/dL AST (14-36) U/L Alkaline Phosphatase (38-126) U/L Total Protein (6.3-8.2) g/dL Albumin (3.5-5.0) g/dL Microbiology - Last 24 Hours (Table) 10/02/21 10:30 Blood Culture - Preliminary Blood No Growth after 96 hours 10/02/21 10:51 Blood Culture - Preliminary Blood No Growth after 72 hours
[2021-10-06 17:22] LABS: Glucose,Whole Blood 143 mg/dL (75-99)
--- NOTE | 2021-10-06 20:22 | PN ---
PROGRESS NOTE DATE OF SERVICE: 10/06/2021 REASON FOR FOLLOWUP: Secondary peritonitis from perforated diverticulitis. INTERVAL HISTORY: Patient is an 81-year-old female who presented to the hospital with abdominal pain. This patient noticed to have perforated sigmoid diverticulitis status post laparotomy, sigmoid colectomy and diverting colostomy. Also had positive COVID test. On today's evaluation, that is 10/06/2021, the patient is afebrile. The patient is hemodynamically stable. FiO2 is currently 40%. No significant purulent secretions through the ET, diarrhea reported by the nursing staff. PHYSICAL EXAMINATION: Blood pressure 126/73, pulse of 95, temperature 98.2. He is 90% on 40% FIO2. General description is an elderly female intubated on the vent. Respiratory system: Unlabored breathing, decreased intensity in breath sounds. No wheeze. Heart S1, S2. Regular rate and rhythm. Abdomen soft, no tenderness. LABS: Hemoglobin is 9.5, white count 8.3, creatinine is 2.66. DIAGNOSTIC IMPRESSION AND PLAN: 1. Patient with acute respiratory failure, multifactorial in this patient who has a sigmoid diverticulosis status post diverting colostomy. The patient is covered with Zosyn to continue for now. 2. Elevated white count more likely related to the steroids as the patient high dose hydrocortisone. No evidence of any worsening infection. Inflammatory markers will be rechecked. Clinical course will monitored closely. NEVILLE / HENRY: [id number] / [email or web address]
[2021-10-07] MEDS: HYDROCORTISONE SUCCINATE 100 MG/2 ML VIAL IV SCH ×3 (00:52→16:06)
[2021-10-07 00:56] LABS: Glucose,Whole Blood 150 mg/dL (75-99)
[2021-10-07] MEDS: INSULIN ASPART (NovoLOG) 100 UNIT/ML VIAL SQ SCH ×4 (00:56→18:16)
[2021-10-07] MEDS: metroNIDAZOLE-NS PMX 500 MG in SALINE 1 100ML.BAG IVPB SCH ×4 (03:43→21:29)
[2021-10-07] MEDS: NOREPINEPHRINE 32 MG in SODIUM CHLORIDE 0.9% 218 ML IV SCH ×2 (03:46→14:23)
[2021-10-07 06:08] LABS: ABG Base Excess 9.8 mmol/L; ABG HCO3 32 mmol/L (21-25); ABG Oxygen Saturation 91.7 % (94-97); ABG PCO2 33 mmHg (35-45); ABG TCO2 33 mmol/L (19-24)
[2021-10-07 06:10] LABS: ABG PH 7.59 (7.35-7.45)
[2021-10-07 06:11] LABS: ABG PO2 56 mmHg (83-108); Allen Test Performed? no
[2021-10-07 07:50] LABS: Glucose,Whole Blood 138 mg/dL (75-99)
--- NOTE | 2021-10-07 08:34 | XR ---
EXAMINATION TYPE: XR chest 1V portable DATE OF EXAM: 10/07/2021 COMPARISON: Chest x-ray 10/06/2021 HISTORY: Intubated TECHNIQUE: Single frontal view of the chest is obtained. FINDINGS: Endotracheal tube, right jugular central venous catheter are overlying appropriate positio ns. Patient is rotated. There is no evident pneumothorax. Bibasilar increased attenuation shows a sim ilar appearance. Interstitium appears increased. Cardiac mediastinal silhouette not significantly isis nged. Aorta is dense and possibly ectatic. There are overlying artifacts. NG tube no longer seen. IMPRESSION: Correlate for congestive heart failure with basilar effusions and associated atelectasis versus edema, pneumonia not excluded.
[2021-10-07] MEDS: ENOXAPARIN 30 MG/0.3 ML SYRINGE SQ SCH (09:22)
[2021-10-07] MEDS: PANTOPRAZOLE 40 MG/10 ML VIAL IV SCH (09:22)
[2021-10-07] MEDS: CHLORHEXIDINE GLUCONATE 15 ML CUP MUCOUS MEM SCH ×2 (09:24→21:30)
[2021-10-07] MEDS: CALCIUM CARBONATE 500 MG CHEWABLE PO SCH ×2 (09:24→21:30)
[2021-10-07] MEDS: PIPERACILLIN-TAZOBACTAM 3.375 GM in SODIUM CHLORIDE 0.9% 100 ML IVPB SCH ×2 (09:25→21:29)
[2021-10-07] MEDS: cycloSPORINE 25 MG CAP PO SCH ×2 (09:26→21:31)
--- NOTE | 2021-10-07 09:56 | P.PN ---
Subjective Patient is seen in follow-up for acute allograft dysfunction. Intubated. Receiving tube feeds. Off vasopressors. Urine output 30-40 mL an hour. Vital signs are stable. General: Intubated. HEENT: Head exam is unremarkable. LUNGS: Breath sounds decreased. HEART: Tachycardic. ABDOMEN: No distention. EXTREMITITES: 1+ edema. Objective - Vital Signs Vital signs: Vital Signs Temp 97.6 F 10/07/21 04:00 Pulse 114 H 10/07/21 06:00 Resp 37 H 10/07/21 06:00 BP 117/63 10/07/21 06:00 Pulse Ox 88 L 10/07/21 05:00 Intake & Output 10/06/21 10/07/21 10/07/21 18:59 06:59 18:59 Intake Total 558 524 Output Total 615 415 Balance -57 109 Intake: IV 169 342 Piperacillin-Tazobactam 3 25 .375 gm In Sodium Chloride 0.9% 100 ml @ 25 mls/hr IVPB Q12H [facility] Rx# :[id number] Pressure Bag 39 27 Sodium Chloride 0.9% 1, 130 90 000 ml @ 10 mls/hr IV . Q24H [facility] Rx#:[id number] metroNIDAZOLE-NS PMX 500 200 mg In Saline 1 100ml.bag @ 100 mls/hr IVPB Q6H [facility] Rx#:[id number] Tube Feeding 299 92 Other 90 90 Output: Urine 615 415 Other: Voiding Method Indwelling Catheter Indwelling Catheter ABP, PAP, CO, CI - Last Documented Arterial Blood Pressure 97/55 - Labs CBC & Chem 7: 10/06/21 03:58 10/06/21 10:48 Labs: Abnormal Lab Results - Last 24 Hours (Table) 10/06/21 10/06/21 10/07/21 Range/Units 11:24 17:20 00:54 ABG pH (7.35-7.45) ABG pCO2 (35-45) mmHg ABG pO2 (83-108) mmHg ABG HCO3 (21-25) mmol/L ABG Total CO2 (19-24) mmol/L ABG O2 Saturation (94-97) % POC Glucose (mg/dL) 136 H 143 H 150 H (75-99) mg/dL 10/07/21 10/07/21 Range/Units 06:03 07:50 ABG pH 7.59 H* (7.35-7.45) ABG pCO2 33 L (35-45) mmHg ABG pO2 56 L* (83-108) mmHg ABG HCO3 32 H (21-25) mmol/L ABG Total CO2 33 H (19-24) mmol/L ABG O2 Saturation 91.7 L (94-97) % POC Glucose (mg/dL) 138 H (75-99) mg/dL Microbiology - Last 24 Hours (Table) 10/02/21 10:51 Blood Culture - Preliminary Blood No Growth after 96 hours 10/02/21 10:30 Blood Culture - Preliminary Blood No Growth after 96 hours Assessment and Plan Plan: Assessment: 1. 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 Baseline creatinine near 1 and peaked at 3.5 to this admission - 2.66 yesterday. No hydronephrosis noted on CAT scan. 2. Status post renal transplant in 2017 at [facility]. 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 3. Metabolic acidosis secondary to acute kidney injury and lactic acidosis. Re solved. Now alkalotic. 4. Pneumoperitoneum s/p exploratory laparotomy, right oophorectomy and colo stomy this admission. 5. Septic shock off vasopressors now. 6. COVID-19 infection. 7. Acute hypoxic respiratory failure. 8. Respiratory and metabolic alkalosis. 9. Volume overload. 10. Hypocalcemia secondary to acute kidney injury maintained on vitamin D supplementation and Tums. PTH 214. Vitamin D level 35.9. Corrected calcium is 7.5. Plan: Maintain tube feeds. She is currently on IV hydrocortisone. Cyclosporine resumed at low dose today. Continue to monitor renal function and urine output. Add Diamox 250 mg IV twice daily. Morning labs pending.
[2021-10-07 10:11] LABS: Albumin 1.7 g/dL (3.5-5.0); Magnesium 2.3 mg/dL (1.6-2.3); Potassium 3.2 mmol/L (3.5-5.1); Total Bilirubin 1.1 mg/dL (0.2-1.3); Total Protein 3.3 g/dL (6.3-8.2)
[2021-10-07 10:13] LABS: Calcium 6.4 mg/dL (8.4-10.2)
[2021-10-07 10:15] LABS: Basophils # (A) 0.1 k/uL (0-0.2); Basophils % (A) 0 %; Eosinophils % (A) 0 %; HGB 9.4 gm/dL (11.4-16.0); Lymphocytes # (A) 0.9 k/uL (1.0-4.8); Lymphocytes % (A) 3 %; MCH 29.3 pg (25.0-35.0); MCHC 31.5 g/dL (31.0-37.0); MCV 92.9 fL (80.0-100.0); Mean Platelet Volume 13.6; Monocytes # (A) 0.9 k/uL (0-1.0); Monocytes % (A) 4 %; Neutrophils # (A) 23.9 k/uL (1.3-7.7); Neutrophils % (A) 91 %; RBC 3.23 m/uL (3.80-5.40); RDW 15.5 % (11.5-15.5); WBC 26.2 k/uL (3.8-10.6)
[2021-10-07 10:16] LABS: Platelet Count 126 k/uL (150-450)
[2021-10-07] MEDS: POTASSIUM BICARBONATE/CIT AC 20 MEQ TABLET.EFF NG-TUBE SCH ×2 (10:28→12:22)
--- NOTE | 2021-10-07 10:46 | P.PN ---
Subjective Progress Note Date: 10/07/21 INTERVAL HISTORY: The patient is a 81-year-old female admitted with bowel perforation. Patient is mechanically ventilated for acute hypoxic respiratory failure. Patient has a history of proximal atrial fibrillation on Eliquis, TIA, hypertension, dyslipidemia, kidney transplant on immunosuppressive therapy. Today patient is examined and no signs of acute distress, mechanically ventilated. She remains in atrial fibrillation with an uncontrolled ventricular rate ranging between 100-120. Patient's anticoagulation was being held due to thrombocytopenia, yesterday she was able to be started on low-dose Lovenox due to improvement in thrombocytopenia and for DVT prophylaxis. Vasopressors have been discontinued and she is maintaining blood pressure of 107/89. Heart rate is uncontrolled ranging from 100-120. Respirations 37, mechanical ventilation, afebrile. Patient will be started on Lopressor 25 mg twice a day. Diagnostics: EKG shows patient remains in atrial fibrillation with an uncontrolled ventricle response Echocardiogram showed normal LV function with an ejection fraction of 55-60% Chest x-ray shows moderate stable pulmonary vascular congestion and small bilateral pleural effusions with the left greater than the right. Just from previous exam. Labs reviewedhemoglobin 9.4, platelet count 126, sodium 142, potassium 3.2, BUN 83, creatinine 2.16, magnesium 2.3 Objective - Vital Signs Vital signs: Vital Signs Temp 97.6 F 10/07/21 04:00 Pulse 114 H 10/07/21 06:00 Resp 37 H 10/07/21 06:00 BP 117/63 10/07/21 06:00 Pulse Ox 88 L 10/07/21 05:00 Intake & Output 10/06/21 10/07/21 10/07/21 18:59 06:59 18:59 Intake Total 558 524 Output Total 615 415 Balance -57 109 Intake: IV 169 342 Piperacillin-Tazobactam 3 25 .375 gm In Sodium Chloride 0.9% 100 ml @ 25 mls/hr IVPB Q12H [facility] Rx# :[id number] Pressure Bag 39 27 Sodium Chloride 0.9% 1, 130 90 000 ml @ 10 mls/hr IV . Q24H [facility] Rx#:[id number] metroNIDAZOLE-NS PMX 500 200 mg In Saline 1 100ml.bag @ 100 mls/hr IVPB Q6H [facility] Rx#:[id number] Tube Feeding 299 92 Other 90 90 Output: Urine 615 415 Other: Voiding Method Indwelling Catheter Indwelling Catheter ABP, PAP, CO, CI - Last Documented Arterial Blood Pressure 97/55 - Exam Physical exam limited to COVID positive PHYSICAL EXAM: VITAL SIGNS: Reviewed. GENERAL: Well-developed in no acute distress. HEENT: Head is normocephalic. NECK: Supple. No JVD or thyromegaly RESPIRATORY: Respirations even and unlabored. Patient mechanically ventilated - Labs CBC & Chem 7: 10/07/21 09:20 10/07/21 09:20 Labs: Abnormal Lab Results - Last 24 Hours (Table) 10/06/21 10/06/21 10/07/21 Range/Units 11:24 17:20 00:54 WBC (3.8-10.6) k/uL RBC (3.80-5.40) m/uL Hgb (11.4-16.0) gm/dL Hct (34.0-46.0) % Plt Count (150-450) k/uL Neutrophils # (1.3-7.7) k/uL Lymphocytes # (1.0-4.8) k/uL ABG pH (7.35-7.45) ABG pCO2 (35-45) mmHg ABG pO2 (83-108) mmHg ABG HCO3 (21-25) mmol/L ABG Total CO2 (19-24) mmol/L ABG O2 Saturation (94-97) % Potassium (3.5-5.1) mmol/L BUN (7-17) mg/dL Creatinine (0.52-1.04) mg/dL Glucose (74-99) mg/dL POC Glucose (mg/dL) 136 H 143 H 150 H (75-99) mg/dL Calcium (8.4-10.2) mg/dL Alkaline Phosphatase (38-126) U/L Total Protein (6.3-8.2) g/dL Albumin (3.5-5.0) g/dL 10/07/21 10/07/21 10/07/21 Range/Units 06:03 07:50 09:20 WBC 26.2 H (3.8-10.6) k/uL RBC 3.23 L (3.80-5.40) m/uL Hgb 9.4 L (11.4-16.0) gm/dL Hct 30.0 L (34.0-46.0) % Plt Count 126 L D (150-450) k/uL Neutrophils # 23.9 H (1.3-7.7) k/uL Lymphocytes # 0.9 L (1.0-4.8) k/uL ABG pH 7.59 H* (7.35-7.45) ABG pCO2 33 L (35-45) mmHg ABG pO2 56 L* (83-108) mmHg ABG HCO3 32 H (21-25) mmol/L ABG Total CO2 33 H (19-24) mmol/L ABG O2 Saturation 91.7 L (94-97) % Potassium (3.5-5.1) mmol/L BUN (7-17) mg/dL Creatinine (0.52-1.04) mg/dL Glucose (74-99) mg/dL POC Glucose (mg/dL) 138 H (75-99) mg/dL Calcium (8.4-10.2) mg/dL Alkaline Phosphatase (38-126) U/L Total Protein (6.3-8.2) g/dL Albumin (3.5-5.0) g/dL 10/07/21 Range/Units 09:20 WBC (3.8-10.6) k/uL RBC (3.80-5.40) m/uL Hgb (11.4-16.0) gm/dL Hct (34.0-46.0) % Plt Count (150-450) k/uL Neutrophils # (1.3-7.7) k/uL Lymphocytes # (1.0-4.8) k/uL ABG pH (7.35-7.45) ABG pCO2 (35-45) mmHg ABG pO2 (83-108) mmHg ABG HCO3 (21-25) mmol/L ABG Total CO2 (19-24) mmol/L ABG O2 Saturation (94-97) % Potassium 3.2 L (3.5-5.1) mmol/L BUN 83 H (7-17) mg/dL Creatinine 2.16 H (0.52-1.04) mg/dL Glucose 123 H (74-99) mg/dL POC Glucose (mg/dL) (75-99) mg/dL Calcium 6.4 L* (8.4-10.2) mg/dL Alkaline Phosphatase 221 H (38-126) U/L Total Protein 3.3 L (6.3-8.2) g/dL Albumin 1.7 L (3.5-5.0) g/dL Microbiology - Last 24 Hours (Table) 10/02/21 10:51 Blood Culture - Preliminary Blood No Growth after 96 hours 10/02/21 10:30 Blood Culture - Preliminary Blood No Growth after 96 hours Assessment and Plan Assessment: Atrial fibrillation with an uncontrolled ventricular rate Improved thrombocytopenia History of hypertension History of hyperlipidemia Acute hypoxic respiratory failure requiring mechanical ventilation Septic shock secondary to acute abdominal pneumoperitoneum History of kidney transplant containing on immunosuppressants Plan: Start Lopressor 25 mg twice a day for heart rate control Continue all other current cardiac medications Continue with telemetry monitoring Continue with anticoagulation as tolerated by thrombocytopenia Replace potassium per protocol Further recommendations based on clinical course. The above impression and plan of care have been discussed and directed by the signing physician. Macy Orosco, nurse practitioner, acting as scribe for zach brown physician.
[2021-10-07 11:27] LABS: Glucose,Whole Blood 132 mg/dL (75-99)
[2021-10-07] MEDS: METOPROLOL TARTRATE 25 MG TAB PO SCH ×2 (12:22→21:30)
[2021-10-07] MEDS: DEXMEDETOMIDINE/0.9% NACL(PMX) 400 MCG in EMPTY BAG 1 BAG IV SCH (12:22)
--- NOTE | 2021-10-07 14:02 | P.PN ---
Subjective Progress Note Date: 10/07/21 CHIEF COMPLAINT: Abdominal pain HISTORY OF PRESENT ILLNESS: Patient is postop day #6 exploratory laparotomy, sigmoid colectomy with colostomy and right oophorectomy for perforated sigmoid colon. Patient is currently the ICU and intubated. She is off of vasopressors. Patient remains unresponsive. Neurology is now on consult. Computed tomography scan of the brain and EEG have been ordered. Afebrile. Tachycardic in atrial fibrillation. Cardiology has started Lopressor. WBC 26.2 hemoglobin 9.4 platelets 126 K3.2 and equal replaced Patient seen and examined with Dr. garcia PHYSICAL EXAM: VITAL SIGNS: Reviewed. GENERAL: Well-developed in no acute distress. HEENT: No sclera icterus. Extraocular movements grossly intact. Moist buccal mucosa. Head is atraumatic, normocephalic. ABDOMEN: Soft. Nondistended. dressing with blood noted distally. Stool present in ostomy NEUROLOGIC: Intubated unresponsive ASSESSMENT: 1. Perforated sigmoid colon status post exploratory laparotomy, sigmoid colectomy with colostomy and right oophorectomy 2. Acute hypoxic respiratory failure currently intubated and on mechanical ventilation 3. Septic shock due to perforated sigmoid colon 4. History of A. fib and TIA 5. COVID-19 positive, incidental finding 6. History of kidney transplant. Nephrology following 7. Acute kidney injury on chronic kidney disease 8. Thrombocytopenia 9. Encephalopathy PLAN: -Continue ICU management -Continue supportive care -Incisional dressing changed today -Continue antibiotics -DVT prophylaxis lovenox and GI prophylaxis Protonix Physician It Project Manager note has been reviewed by physician. Signing provider agrees with the documented findings, assessment, and plan of care. Objective - Vital Signs Vital signs: Vital Signs Temp 98 F 10/07/21 12:00 Pulse 120 H 10/07/21 13:00 Resp 37 H 10/07/21 13:00 BP 96/61 10/07/21 13:00 Pulse Ox 93 L 10/07/21 13:00 Intake & Output 10/06/21 10/07/21 10/07/21 18:59 06:59 18:59 Intake Total 558 524 726 Output Total 615 415 255 Balance -57 109 471 Weight 64.5 kg Intake: IV 169 342 231 Piperacillin-Tazobactam 3 25 100 .375 gm In Sodium Chloride 0.9% 100 ml @ 25 mls/hr IVPB Q12H [facility] Rx# :[id number] Pressure Bag 39 27 21 Sodium Chloride 0.9% 1, 130 90 10 000 ml @ 10 mls/hr IV . Q24H [facility] Rx#:[id number] metroNIDAZOLE-NS PMX 500 200 100 mg In Saline 1 100ml.bag @ 100 mls/hr IVPB Q6H [facility] Rx#:[id number] Intake, IV Titration 76 Amount Dexmedetomidine/0.9% NaCl 6 (Pmx) 400 mcg In Empty Bag 1 bag @ 0.2 MCG/KG/HR 3.225 mls/hr IV .Q24H [facility] Rx#:[id number] Sodium Chloride 0.9% 1, 70 000 ml @ 10 mls/hr IV . Q24H [facility] Rx#:[id number] Tube Feeding 299 92 239 Other 90 90 180 Output: Urine 615 415 255 Other: Voiding Method Indwelling Catheter Indwelling Catheter ABP, PAP, CO, CI - Last Documented Arterial Blood Pressure 93/54 - Labs CBC & Chem 7: 10/07/21 09:20 10/07/21 09:20 Labs: Abnormal Lab Results - Last 24 Hours (Table) 10/06/21 10/07/21 10/07/21 Range/Units 17:20 00:54 06:03 WBC (3.8-10.6) k/uL RBC (3.80-5.40) m/uL Hgb (11.4-16.0) gm/dL Hct (34.0-46.0) % Plt Count (150-450) k/uL Neutrophils # (1.3-7.7) k/uL Lymphocytes # (1.0-4.8) k/uL ABG pH 7.59 H* (7.35-7.45) ABG pCO2 33 L (35-45) mmHg ABG pO2 56 L* (83-108) mmHg ABG HCO3 32 H (21-25) mmol/L ABG Total CO2 33 H (19-24) mmol/L ABG O2 Saturation 91.7 L (94-97) % Potassium (3.5-5.1) mmol/L BUN (7-17) mg/dL Creatinine (0.52-1.04) mg/dL Glucose (74-99) mg/dL POC Glucose (mg/dL) 143 H 150 H (75-99) mg/dL Calcium (8.4-10.2) mg/dL Alkaline Phosphatase (38-126) U/L Total Protein (6.3-8.2) g/dL Albumin (3.5-5.0) g/dL 10/07/21 10/07/21 10/07/21 Range/Units 07:50 09:20 09:20 WBC 26.2 H (3.8-10.6) k/uL RBC 3.23 L (3.80-5.40) m/uL Hgb 9.4 L (11.4-16.0) gm/dL Hct 30.0 L (34.0-46.0) % Plt Count 126 L D (150-450) k/uL Neutrophils # 23.9 H (1.3-7.7) k/uL Lymphocytes # 0.9 L (1.0-4.8) k/uL ABG pH (7.35-7.45) ABG pCO2 (35-45) mmHg ABG pO2 (83-108) mmHg ABG HCO3 (21-25) mmol/L ABG Total CO2 (19-24) mmol/L ABG O2 Saturation (94-97) % Potassium 3.2 L (3.5-5.1) mmol/L BUN 83 H (7-17) mg/dL Creatinine 2.16 H (0.52-1.04) mg/dL Glucose 123 H (74-99) mg/dL POC Glucose (mg/dL) 138 H (75-99) mg/dL Calcium 6.4 L* (8.4-10.2) mg/dL Alkaline Phosphatase 221 H (38-126) U/L Total Protein 3.3 L (6.3-8.2) g/dL Albumin 1.7 L (3.5-5.0) g/dL 10/07/21 Range/Units 11:25 WBC (3.8-10.6) k/uL RBC (3.80-5.40) m/uL Hgb (11.4-16.0) gm/dL Hct (34.0-46.0) % Plt Count (150-450) k/uL Neutrophils # (1.3-7.7) k/uL Lymphocytes # (1.0-4.8) k/uL ABG pH (7.35-7.45) ABG pCO2 (35-45) mmHg ABG pO2 (83-108) mmHg ABG HCO3 (21-25) mmol/L ABG Total CO2 (19-24) mmol/L ABG O2 Saturation (94-97) % Potassium (3.5-5.1) mmol/L BUN (7-17) mg/dL Creatinine (0.52-1.04) mg/dL Glucose (74-99) mg/dL POC Glucose (mg/dL) 132 H (75-99) mg/dL Calcium (8.4-10.2) mg/dL Alkaline Phosphatase (38-126) U/L Total Protein (6.3-8.2) g/dL Albumin (3.5-5.0) g/dL Microbiology - Last 24 Hours (Table) 10/02/21 10:51 Blood Culture - Preliminary Blood No Growth after 120 hours 10/02/21 10:30 Blood Culture - Preliminary Blood No Growth after 120 hours
--- NOTE | 2021-10-07 14:22 | P.PN ---
Subjective Progress Note Date: 10/07/21 HISTORY OF PRESENT ILLNESS This is an 81-year-old pleasant female patient of Dr. Henao, with known history of hypertension, CK D stage III, paroxysmal atrial fibrillation admitted through the emergency room secondary to abdominal pain and found to have pneumoperitoneum. She has significant discomfort, accompanied by nausea, vomiting, no fever. She presented to emergency room with normal findings, in the CAT scan showing moderate pneumoperitoneum, with small bowel thickening, and mild dilatation saray a of the mesenteric considered for mesenteric ischemia there is a left-sided pelvic cystic mass. Chest x-ray shows atelectasis, She is hypotensive, when seen, lactic acid level is high at 12, she was having difficulty of breathing with tachypnea, hence she was preemptively intubated in the emergency room,. She was placed on assist-control, rate of 26, FiO2 40%, PEEP of 5 at the volume of 300. She was sent ICU for stabilization requiring norepinephrine infusion at 0.5 mcg/kg/m for hypotension and septic shock, she received 3.5 L of normal saline for which she is now undergoing exploratory laparotomy. Consult was made with Dr. Price surgeon, and Dr. Nino, critical care ICU physician incidentally, she was tested confirmed Covid positive, on October 0110/02: Patient is seen today in the intensive care unit, remains intubated and on mechanical ventilation with tidal volume 300, FiO2 40 and PEEP of 5. Patient is currently on propofol, bicarb drip, amiodarone is being started for A. fib. Patient is on antibiotics the form of Zosyn and Flagyl. Repeat chest x-ray reveals basilar atelectasis, correlate to exclude pneumonia, possible effusion. Patient is followed by infectious disease, cardiology, drawer waxer, nephrology, general surgery. Repeat blood work today reveals WBC 24.6, hemoglobin 12.1, platelet count 123. Sodium 136, potassium 4.5, chloride 109, CO2 11, BUN 38 creatinine 3.04. Calcium 5.9. AST 109. Patient remains in isolation for Covid 19. 10/03: Remains intubated on mechanical ventilation with tidal volume 300, FiO2 40, PEEP of 5. She has had very minimal amount output on ostomy. She has been on high-dose levo fed started on vasopressin as well and heparin drip is off due to elevated PTT. She has no output from her OG. Urine output has improved. 10/04: She remains intubated and on mechanical ventilation with tidal volume 300, FiO2 40 and PEEP of 5. Patient started having output from ostomy last evening, liquid brown approximate 950 ML's. Calcium is being replaced. She is still on low-dose norepinephrine and vasopressin as well as IV fluids. Anticipate she will start oral medications and feedings today. Chest x-ray reveals stable bilateral infiltrate and pleural effusion. 10/05 patient remains intubated, PEEP of 5, O2 40% Dilaudid, pressures are little bit on the lower side, still with norepinephrine titrated with bp, NG feedings at 23 mL an hour, output noted in colostomy, no plans for vent weaning at this time in output is adequate patient is on Cortef 100 mg every 8 hours, was on oral prednisone chronically prior to admission. Ahlquist is still on hold, on IV Zosyn and Flagyl 10/06 and 20 rate in the 110s, blood pressure 125/92, remains to be intubated, assist control 16, with FiO2 40%, PEEP of 5. Slightly labored breathing colostomy, without no blood, NG feedings. On Zosyn and Flagyl multiple specialists following, patient remains in ICU 10/07: Patient remains intubated and on mechanical ventilation with tidal volume 300, FiO2 50 and PEEP of 5. Patient remains unresponsive. She is off vasopressors. She is on tube feedings. Urine output has been 30-40 mL per hour. Cardiology is on consult for atrial fibrillation with RVR and started Lopressor 25 mg twice daily. Echocardiogram reveals Chest x-ray reveals correlate for congestive heart failure with basilar effusions and associated atelectasis versus edema, pneumonia not excluded. Review of SYSTEMS ROS unobtainable: due to endotracheal tube PHYSICAL EXAMINATION Gen: This is an 81-year-old female, resting on the ICU bed and appears to be comfortable. ET and orogastric tube in place. HEENT: Head is atraumatic, normocephalic. Physical physical examination deferred due to Covid 19, intubation ASSESSMENT AND PLAN 1. Acute pneumoperitoneum, with peritonitis considered for small bowel perforation, underlying ischemic bowel, requiring mechanical intubation, on the emergency department. General surgery, is status post exploratory laparotomy 10/01/2020. She has severe lactic acidosis, hypotension, septic shock. She is off pressors and IV antibiotics. Consult Dr. acharya and continue on Zosyn and Flagyl. Patient is on stress dose of hydrocortisone 100 mg every 8 hours. 2. Small bowel perforation suspected, with septic shock, explore lap on 10/01/1908/10/2022, IV Zosyn 3. Septic shock, IV antibiotics, with fluids w/o pressors 4. History of kidney transplantation, on immunosuppressive agent, CellCept and prednisone and cyclosporine 5. Acute allograft dysfunction secondary to ATN secondary to hypotension and sh ock CKD, suspect stage III, 6. chronic atrial fibrillation, with prior TIA. Patient is on Lovenox, Lopressor 25 mg twice daily, cardiology consult appreciated. 7. Covid 19 infection, unknown infection time and onset of signs and symptoms, vaccination status not Determined, consult Dr. Acharya 8. Osteoporosis 9. Breast cancer, with lobular carcinoma in situ, had surgery for these activity unknown, 10. 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 Carmona. 11. Hypocalcemia. Continue to monitor and replace 12. Thrombocytopenia secondary to sepsis. Continue to monitor. 13. DVT prophylaxis GI prophylaxis Prognosis guarded CODE STATUS, full until specified Prognosis guarded. Impression and plan of care have been directed as dictated by the signing physician. Cierra Rodas nurse practitioner acting as scribe for signing physician. Objective - Vital Signs Vital signs: Vital Signs Temp 98 F 10/07/21 08:00 Pulse 129 H 10/07/21 11:00 Resp 35 H 10/07/21 11:00 BP 102/59 10/07/21 11:00 Pulse Ox 91 L 10/07/21 11:00 Intake & Output 10/06/21 10/07/21 10/07/21 18:59 06:59 18:59 Intake Total 558 524 Output Total 615 415 Balance -57 109 Weight 64.5 kg Intake: IV 169 342 Piperacillin-Tazobactam 3 25 .375 gm In Sodium Chloride 0.9% 100 ml @ 25 mls/hr IVPB Q12H [facility] Rx# :[id number] Pressure Bag 39 27 Sodium Chloride 0.9% 1, 130 90 000 ml @ 10 mls/hr IV . Q24H [facility] Rx#:[id number] metroNIDAZOLE-NS PMX 500 200 mg In Saline 1 100ml.bag @ 100 mls/hr IVPB Q6H [facility] Rx#:[id number] Tube Feeding 299 92 Other 90 90 Output: Urine 615 415 Other: Voiding Method Indwelling Catheter Indwelling Catheter ABP, PAP, CO, CI - Last Documented Arterial Blood Pressure 86/56 - Labs CBC & Chem 7: 10/07/21 09:20 10/07/21 09:20 Labs: Abnormal Lab Results - Last 24 Hours (Table) 10/06/21 10/07/21 10/07/21 Range/Units 17:20 00:54 06:03 WBC (3.8-10.6) k/uL RBC (3.80-5.40) m/uL Hgb (11.4-16.0) gm/dL Hct (34.0-46.0) % Plt Count (150-450) k/uL Neutrophils # (1.3-7.7) k/uL Lymphocytes # (1.0-4.8) k/uL ABG pH 7.59 H* (7.35-7.45) ABG pCO2 33 L (35-45) mmHg ABG pO2 56 L* (83-108) mmHg ABG HCO3 32 H (21-25) mmol/L ABG Total CO2 33 H (19-24) mmol/L ABG O2 Saturation 91.7 L (94-97) % Potassium (3.5-5.1) mmol/L BUN (7-17) mg/dL Creatinine (0.52-1.04) mg/dL Glucose (74-99) mg/dL POC Glucose (mg/dL) 143 H 150 H (75-99) mg/dL Calcium (8.4-10.2) mg/dL Alkaline Phosphatase (38-126) U/L Total Protein (6.3-8.2) g/dL Albumin (3.5-5.0) g/dL 10/07/21 10/07/21 10/07/21 Range/Units 07:50 09:20 09:20 WBC 26.2 H (3.8-10.6) k/uL RBC 3.23 L (3.80-5.40) m/uL Hgb 9.4 L (11.4-16.0) gm/dL Hct 30.0 L (34.0-46.0) % Plt Count 126 L D (150-450) k/uL Neutrophils # 23.9 H (1.3-7.7) k/uL Lymphocytes # 0.9 L (1.0-4.8) k/uL ABG pH (7.35-7.45) ABG pCO2 (35-45) mmHg ABG pO2 (83-108) mmHg ABG HCO3 (21-25) mmol/L ABG Total CO2 (19-24) mmol/L ABG O2 Saturation (94-97) % Potassium 3.2 L (3.5-5.1) mmol/L BUN 83 H (7-17) mg/dL Creatinine 2.16 H (0.52-1.04) mg/dL Glucose 123 H (74-99) mg/dL POC Glucose (mg/dL) 138 H (75-99) mg/dL Calcium 6.4 L* (8.4-10.2) mg/dL Alkaline Phosphatase 221 H (38-126) U/L Total Protein 3.3 L (6.3-8.2) g/dL Albumin 1.7 L (3.5-5.0) g/dL 10/07/21 Range/Units 11:25 WBC (3.8-10.6) k/uL RBC (3.80-5.40) m/uL Hgb (11.4-16.0) gm/dL Hct (34.0-46.0) % Plt Count (150-450) k/uL Neutrophils # (1.3-7.7) k/uL Lymphocytes # (1.0-4.8) k/uL ABG pH (7.35-7.45) ABG pCO2 (35-45) mmHg ABG pO2 (83-108) mmHg ABG HCO3 (21-25) mmol/L ABG Total CO2 (19-24) mmol/L ABG O2 Saturation (94-97) % Potassium (3.5-5.1) mmol/L BUN (7-17) mg/dL Creatinine (0.52-1.04) mg/dL Glucose (74-99) mg/dL POC Glucose (mg/dL) 132 H (75-99) mg/dL Calcium (8.4-10.2) mg/dL Alkaline Phosphatase (38-126) U/L Total Protein (6.3-8.2) g/dL Albumin (3.5-5.0) g/dL Microbiology - Last 24 Hours (Table) 10/02/21 10:30 Blood Culture - Preliminary Blood No Growth after 120 hours 10/02/21 10:51 Blood Culture - Preliminary Blood No Growth after 96 hours
[2021-10-07] MEDS: SODIUM CHLORIDE 0.9% 1,000 ML IV SCH (15:27)
--- NOTE | 2021-10-07 16:41 | P.PN ---
Subjective Progress Note Date: 10/07/21 Principal diagnosis: Acute pneumoperitoneum secondary to acute sigmoid colon perforation status post colectomy and diverting colostomy postoperative day #6. 10/05 2021, the patient is postop day #4. Remains on a mechanical ventilator. He remains sedated with propofol and the patient is currently on 15 mcg/kg per minute. She is adequately sedated for now. She remains on a mechanical ventilator on assist control mode at the rate of 26, tidal volume of 300, FiO2 of 40% with a PEEP of 5. The blood gas from today shows a father respiratory alkalosis and metabolic alkalosis. PH is at 7.54 with a pCO2 of 37 and pO2 of 80. Chest x-ray showing some atelectatic changes and small effusion the lung bases bilaterally. ET tube is in a good location. There is some mild increase in interstitial markings. Note that the patient is a case of Coumadin nightly related pneumonia also. Hemodynamically, the patient is doing better. She has been weaned off on norepinephrine which is currently running at 0.02 microvascular kilogram per minute and vasopressin remains on a physiologic dose. Her renal function continues to improve in the creatinine is down to 2.7. The patient was also having issues with hypocalcemia. She required calcium placement and her serum calcium total currently is up to 6.3. Ionized calcium is pending for now. Her serum albumin was down to 1.6. Her colostomy was functional and she was started on enteral feeding for nutritional support and she is currently on Nepro at the rate of 23 mL an hour. Another concern is her thrombocytopenia as the patient developed consumptive thrombocytopenia. She is currently on anticoagulation with Eliquis. No bleeding. I am concerned about the potential of bleeding this patient I'm recommending discontinuation of the Eliquis for now. We'll continue the combination of Zosyn and Flagyl as broad-spectrum antibiotic coverage. Cultures of been all negative. Bowel sounds are still hypoactive. The patient will need obviously a sedation holiday today and her candidacy for further weaning will be assessed. 10/06 2021, the patient is still on a mechanical ventilator. The patient is postop day #5. This morning, the patient is off sedation. Once off propofol, the patient's blood pressures improved and the patient is also off pressors. Meanwhile, she is still quite sedated. She is not showing adequate neurological recovery or alertness at this point in time and her mental status is being monit ored. She remains on a mechanical ventilator. She had an assist-control at the rate of 26, tidal volume of 300, FiO2 of 40% with a PEEP of 5. The blood gases from today shows a pH of 7.52 with a pCO2 of 41 and pO2 of 66. Chest x-ray shows small bilateral pleural effusions. ET tube is in a good location. There is improved aeration bilaterally. Meanwhile, as mentioned, the patient is off pressors. Platelet counts have improved up to 5072. The white cell count is at 28 with a hemoglobin 11.9.5. Renal function shows a creatinine of 2.6 which is stable. BUN is at 61. Sodium is at 138. The patient remains on examination Zosyn and Flagyl. IV fluids are running at the rate of 20 mL an hour. The patient is off pressors. The patient is on stress dose hydrocortisone regarding her chronic steroid use. In terms of feeding, the patient was started on Nepro which is running at the rate of 23 mL an hour. The patient is producing stool at this point in time. Her cardiac rhythm is still in atrial fibrillation. The rate is controlled. We have stopped anticoagulation due to concern of underlying thrombocytopenia. Her thrombocytopenia was essentially consumptive related to sepsis. Patient was reevaluated today on 10/07/2021, remains in the ICU, intubated and mechanically ventilated, patient is on assist control rate of 16, volume 300 FiO2 40% and PEEP of 5. ABG showed a pO2 of 56, pCO2 33, pH of 7.59. Patient is off sedation now for the last 2 days, and does not seem to be making any neurological improvement, she is hemodynamically stable, she is in atrial fibrillation with a rate of 1:15, she is on Lovenox, the dose was increased to 30 mg subcu twice a day. Patient seems to be hypercapnic, and instead of using propofol, I'm recommending Precedex, and will be titrated accordingly. I'm also recommending a brain CT today and a neurological consultation. Lovenox was increased to twice a day dosing mostly because of her ongoing atrial fibrillation. And she does have renal failure. Ventilator mcdowell, I recommended that we stay on the same vent settings, I did increase the flow to 60 L/m. See count is 26.2 hemoglobin is 9.4. Basic metabolic profile is normal however her BUN is 83 creatinine 2.16, patient is being followed by nephrology. Asked x-ray showed mostly bibasilar airspace disease, patient did test positive for COVID-19 infection however her chest x-ray is not basically typical of COVID-19 pneumonia, and the patient is not requiring significant FiO2 and significant PEEP at this point. Objective - Vital Signs Vital signs: Vital Signs Temp 98 F 10/07/21 12:00 Pulse 120 H 10/07/21 15:00 Resp 32 H 10/07/21 15:00 BP 95/69 10/07/21 15:00 Pulse Ox 94 L 10/07/21 14:00 Intake & Output 10/06/21 10/07/21 10/07/21 18:59 06:59 18:59 Intake Total 558 524 929.255 Output Total 615 415 305 Balance -57 109 624.255 Weight 64.5 kg Intake: IV 169 342 337 Piperacillin-Tazobactam 3 25 100 .375 gm In Sodium Chloride 0.9% 100 ml @ 25 mls/hr IVPB Q12H [facility] Rx# :[id number] Pressure Bag 39 27 27 Sodium Chloride 0.9% 1, 130 90 10 000 ml @ 10 mls/hr IV . Q24H [facility] Rx#:[id number] metroNIDAZOLE-NS PMX 500 200 200 mg In Saline 1 100ml.bag @ 100 mls/hr IVPB Q6H [facility] Rx#:[id number] Intake, IV Titration 111.255 Amount Dexmedetomidine/0.9% NaCl 20.369 (Pmx) 400 mcg In Empty Bag 1 bag @ 0.2 MCG/KG/HR 3.225 mls/hr IV .Q24H [facility] Rx#:[id number] Norepinephrine 32 mg In 0.886 Sodium Chloride 0.9% 218 ml @ 0.05 MCG/KG/MIN 1. 329 mls/hr IV .Q24H [facility] Rx#:[id number] Sodium Chloride 0.9% 1, 90 000 ml @ 10 mls/hr IV . Q24H [facility] Rx#:[id number] Tube Feeding 299 92 301 Other 90 90 180 Output: Urine 615 415 305 Other: Voiding Method Indwelling Catheter Indwelling Catheter Indwelling Catheter ABP, PAP, CO, CI - Last Documented Arterial Blood Pressure 93/61 - Exam Gen: This is an 81-year-old female, intubated and mechanically ventilated. Head: Atraumatic, normocephalic. HEENT: PERRLA, EOMI, nonicteric, no neck masses, no JVD. Endotracheal tube is intact. Orogastric tube is intact. NECK: Supple. No JVD. No lymphadenopathy. No thyromegaly. Cardiac: Irregular irregular rhythm, no S3 gallop. 2/6 systolic murmur throughout the precordium. LUNGS: Symmetrical chest expansion crackles at the bases. Abdomen: Colostomy bag is intact, seems to be functional. Fully catheter is draining meir urine. EXTREMITIES: 1+ bipedal edema, good pulses bilaterally. NEUROLOGICAL: Patient is intubated, does not seem to be responsive to any stimuli. Psychiatric: Unresponsive to stimuli. Could not assess. - Labs CBC & Chem 7: 10/07/21 09:20 10/07/21 09:20 Labs: Abnormal Lab Results - Last 24 Hours (Table) 10/06/21 10/07/21 10/07/21 Range/Units 17:20 00:54 06:03 WBC (3.8-10.6) k/uL RBC (3.80-5.40) m/uL Hgb (11.4-16.0) gm/dL Hct (34.0-46.0) % Plt Count (150-450) k/uL Neutrophils # (1.3-7.7) k/uL Lymphocytes # (1.0-4.8) k/uL ABG pH 7.59 H* (7.35-7.45) ABG pCO2 33 L (35-45) mmHg ABG pO2 56 L* (83-108) mmHg ABG HCO3 32 H (21-25) mmol/L ABG Total CO2 33 H (19-24) mmol/L ABG O2 Saturation 91.7 L (94-97) % Potassium (3.5-5.1) mmol/L BUN (7-17) mg/dL Creatinine (0.52-1.04) mg/dL Glucose (74-99) mg/dL POC Glucose (mg/dL) 143 H 150 H (75-99) mg/dL Calcium (8.4-10.2) mg/dL Alkaline Phosphatase (38-126) U/L Total Protein (6.3-8.2) g/dL Albumin (3.5-5.0) g/dL 10/07/21 10/07/21 10/07/21 Range/Units 07:50 09:20 09:20 WBC 26.2 H (3.8-10.6) k/uL RBC 3.23 L (3.80-5.40) m/uL Hgb 9.4 L (11.4-16.0) gm/dL Hct 30.0 L (34.0-46.0) % Plt Count 126 L D (150-450) k/uL Neutrophils # 23.9 H (1.3-7.7) k/uL Lymphocytes # 0.9 L (1.0-4.8) k/uL ABG pH (7.35-7.45) ABG pCO2 (35-45) mmHg ABG pO2 (83-108) mmHg ABG HCO3 (21-25) mmol/L ABG Total CO2 (19-24) mmol/L ABG O2 Saturation (94-97) % Potassium 3.2 L (3.5-5.1) mmol/L BUN 83 H (7-17) mg/dL Creatinine 2.16 H (0.52-1.04) mg/dL Glucose 123 H (74-99) mg/dL POC Glucose (mg/dL) 138 H (75-99) mg/dL Calcium 6.4 L* (8.4-10.2) mg/dL Alkaline Phosphatase 221 H (38-126) U/L Total Protein 3.3 L (6.3-8.2) g/dL Albumin 1.7 L (3.5-5.0) g/dL 10/07/21 Range/Units 11:25 WBC (3.8-10.6) k/uL RBC (3.80-5.40) m/uL Hgb (11.4-16.0) gm/dL Hct (34.0-46.0) % Plt Count (150-450) k/uL Neutrophils # (1.3-7.7) k/uL Lymphocytes # (1.0-4.8) k/uL ABG pH (7.35-7.45) ABG pCO2 (35-45) mmHg ABG pO2 (83-108) mmHg ABG HCO3 (21-25) mmol/L ABG Total CO2 (19-24) mmol/L ABG O2 Saturation (94-97) % Potassium (3.5-5.1) mmol/L BUN (7-17) mg/dL Creatinine (0.52-1.04) mg/dL Glucose (74-99) mg/dL POC Glucose (mg/dL) 132 H (75-99) mg/dL Calcium (8.4-10.2) mg/dL Alkaline Phosphatase (38-126) U/L Total Protein (6.3-8.2) g/dL Albumin (3.5-5.0) g/dL Microbiology - Last 24 Hours (Table) 10/02/21 10:51 Blood Culture - Preliminary Blood No Growth after 120 hours 10/02/21 10:30 Blood Culture - Preliminary Blood No Growth after 120 hours Assessment and Plan Assessment: Impression: Acute hypoxic respiratory failure, multifactorial. Acute pneumoperitoneum and abdominal sepsis with perforation of sigmoid. Requiring surgery, colostomy, postoperative day #6. Septic shock due to abdominal sepsis Acute COVID-19 pneumonia is strongly suspected. History of kidney transplantation, on immunosuppressive therapy, patient is normally on CellCept prednisone and cyclosporine Chronic kidney disease stage III Chronic atrial fibrillation, on anticoagulation therapy COVID-19 infection possible pneumonia, vaccination status is unknown Osteoporosis History of breast cancer/lobular carcinoma in situ requiring surgery only Thrombocytopenia secondary to sepsis. Suspect acute metabolic encephalopathy and change in mental status. Recommendation: Continue ventilatory support of severe patient is not ready for any weaning considering her mental status. Continue antibiotics/Zosyn and Flagyl Continue stress doses of hydrocortisone. Continue Lovenox. Increase dose to 30 mg subcu twice a day Monitor platelets Continue to monitor daily electrolytes and labs. Continue antibiotics. Continue patient off immunosuppression Continue vitamin D Continue GI prophylaxis/Protonix Continue to hold sedation and assessment and status on a daily basis. Neurological consultation for change in mental status CT of the brain without contrast. Patient is critically ill, critical care time is over 30 minutes. Time with Patient: Greater than 30
[2021-10-07 18:13] LABS: Glucose,Whole Blood 136 mg/dL (75-99)
--- NOTE | 2021-10-07 18:32 | CT ---
EXAMINATION TYPE: CT brain wo con DATE OF EXAM: 10/07/2021 COMPARISON: None HISTORY: Unresponsive. CT DLP: 1188.4 mGycm Automated exposure control for dose reduction was used. There is cerebral cortical atrophy. There is no mass effect or midline shift. There is no sign of int racranial hemorrhage. Calvarium is intact. There is hypodensity in the periventricular white matter. IMPRESSION: Cerebral atrophy and chronic small vessel ischemia. No acute intracranial abnormality.
--- NOTE | 2021-10-07 18:58 | P.CNNES ---
History of Present Illness Consult date: 10/07/21 Requesting physician: Allie Sawyer Reason for Consult: unresponsiveness History of Present Illness: This is an 81-year-old woman with medical history of chronic atrial fibrillation and is on eliquis, hypertension, hyperlipidemia, who presented to emergency department via EMS on 09/30/2021 for abdominal pain. Neurology is consulted for unresponsiveness. History was obtained from medical records as well as the martín buitrago's nurse. Patient presented with acute pneumoperitoneum and abdominal sepsis with perforation of the sigmoid requiring surgery, colostomy post op day #6. Patient was in septic shock due to abdominal sepsis. She was found to have acute COVID-19 pneumonia on 10/01/2021. And her vaccination status is unknown. During the hospital stay patient is a intubated on a ventilator and per the patient's nurse she's been off of IV propofol for at least 40 hours but is unresponsive. Today and around 1222 the patient was started on IV Precedex. Of note the patient has history of kidney transplantation and has history of chronic kidney disease stage III and she is on immunosuppressant at home Cell Cept prednisone and cyclosporine. She has history of breast cancer/lobular carcinoma in situ requiring surgery only. Some of the work-up: Most recent vital signs is blood pressure of 89/54 (arterial), heart rate of 98, respiratory of 31, temperature of 98.2 Fahrenheit and pulse ox of 95%. Most recent white blood cell is 26.2 thousand, hemoglobin is 9.4, hematocrit is 30 at. Most recent creatinine is 2.16 on presentation was 185 and it was as high during this hospital stay was 3.52. D POC glucose has been the range of 130s to 150s. Potassium 0.2, sodium is 142, calcium 66.4, ionized calcium of 4.0 and was as low as 3.0, phosphorus is 5.4 and was as high as 8.6 during this hospital stay. AST of 35 and ALT of 11. Urine culture was negative for urinary tract infection. Blood cultures are no growth after 120 days Patient is on hydrocortisone 100 mg IV every 8 hours and is also on norepineph rine Review of Systems Review of system is limited but the parent positive and negative as per HPI. Past Medical History Past Medical History: Cancer, Hyperlipidemia, Hypertension, Renal Disease Additional Past Medical History / Comment(s): BILATERAL FSGS (FOCAL SEGMENTAL GLOMERULOSCLEROSIS), RIGHT KIDNEY TRANSPLANT (MAY 2007)., LOBULAR CARCINOMA INSITU WITH SURGERY., BACK PAIN- USES CANE,. OSTEOPOROSIS. History of Any Multi-Drug Resistant Organisms: None Reported Past Surgical History: Breast Surgery, Orthopedic Surgery, Tonsillectomy, Tubal Ligation Additional Past Surgical History / Comment(s): LEFT KNEE SURGERY, RIGHT KIDNEY TRANSPLANT MAY 2007. EGD WITH DILATION Past Anesthesia/Blood Transfusion Reactions: Motion Sickness, Postoperative Nausea & Vomiting (PONV) Smoking Status: Unknown if ever smoked - Past Family History Mother Family Medical History: No Reported History Brother(s) Family Medical History: Cancer Additional Family Medical History / Comment(s): COLON CANCER Medications and Allergies Home Medications Medication Instructions Recorded Confirmed Type Atenolol 50 mg PO BID 12/13/14 10/01/21 History cloNIDine HCL [Clonidine HCl] 0.1 mg PO BID 12/13/14 10/01/21 History predniSONE 5 mg PO DAILY 05/14/16 10/01/21 History Furosemide [Lasix] 20 mg PO DAILY 10/22/18 10/01/21 History lisinopriL 60 mg PO HS 10/22/18 10/01/21 History Pantoprazole [Protonix] 40 mg PO DAILY 04/20/20 10/01/21 History Acetaminophen-Codeine 300-30mg 1 tab PO Q4H PRN 10/01/21 10/01/21 History [Tylenol w/codeine #3] Apixaban [Eliquis] 2.5 mg PO BID 10/01/21 10/01/21 History Rosuvastatin [Crestor] 10 mg PO DAILY 10/01/21 10/01/21 History Allergies Allergy/AdvReac Type Severity Reaction Status Date / Time No Known Allergies Allergy Verified 02/19/21 08:23 Physical Examination - Vital Signs Vital Signs: Vital Signs Temp Pulse Resp BP Pulse Ox 10/07/21 18:00 118 H 32 H 103/69 95 10/07/21 17:00 112 H 37 H 99/75 95 10/07/21 16:00 98.2 F 98 31 H 92/75 95 10/07/21 15:00 120 H 32 H 95/69 10/07/21 14:00 107 H 36 H 85/58 94 L 10/07/21 13:00 120 H 37 H 96/61 93 L 10/07/21 12:00 98 F 124 H 34 H 105/64 91 L 10/07/21 11:00 129 H 35 H 102/59 91 L 10/07/21 10:00 131 H 38 H 98/57 90 L 10/07/21 09:00 134 H 38 H 98/79 91 L 10/07/21 08:00 98 F 113 H 37 H 87/71 91 L 10/07/21 06:00 114 H 37 H 117/63 10/07/21 05:00 128 H 28 H 113/68 88 L 10/07/21 04:00 97.6 F 110 H 33 H 115/66 89 L 10/07/21 03:00 100 33 H 113/72 89 L 10/07/21 02:00 100 32 H 108/80 90 L 10/07/21 01:00 110 H 32 H 83/60 92 L 10/07/21 00:00 109 H 33 H 95/63 90 L 10/06/21 23:00 106 H 33 H 95/72 90 L 10/06/21 22:00 114 H 31 H 115/73 91 L 10/06/21 21:00 107 H 32 H 104/72 90 L 10/06/21 20:00 97.8 F 101 H 30 H 115/78 89 L 10/06/21 19:00 95 31 H 126/73 90 L Intake and Output 10/07/21 10/07/21 10/07/21 06:59 14:59 22:59 Intake Total 178 780.095 315.076 Output Total 280 285 640 Balance -102 495.095 -324.924 Intake: IV 178 234 112 Piperacillin-Tazobactam 3 100 .375 gm In Sodium Chloride 0.9% 100 ml @ 25 mls/hr IVPB Q12H [facility] Rx# :[id number] Pressure Bag 18 24 12 Sodium Chloride 0.9% 1, 60 10 000 ml @ 10 mls/hr IV . Q24H [facility] Rx#:[id number] [id number] PMX 500 100 100 100 mg In Saline 1 100ml.bag @ 100 mls/hr IVPB Q6H [facility] Rx#:[id number] Intake, IV Titration 96.095 49.076 Amount Dexmedetomidine/0.9% NaCl 16.095 4.274 (Pmx) 400 mcg In Empty Bag 1 bag @ 0.2 MCG/KG/HR 3.225 mls/hr IV .Q24H [facility] Rx#:[id number] Norepinephrine 32 mg In 0 4.802 Sodium Chloride 0.9% 218 ml @ 0.05 MCG/KG/MIN 1. 329 mls/hr IV .Q24H [facility] Rx#:[id number] Sodium Chloride 0.9% 1, 80 40 000 ml @ 10 mls/hr IV . Q24H [facility] Rx#:[id number] Tube Feeding 270 124 Other 180 30 Output: Urine 280 285 140 Stool 500 Other: Voiding Method Indwelling Catheter Indwelling Catheter Indwelling Catheter Weight 64.5 kg ABP, PAP, CO, CI - Last 8 Hours Arterial Blood Pressure 121/72 Arterial Blood Pressure 131/81 Arterial Blood Pressure 89/54 Arterial Blood Pressure 93/61 Arterial Blood Pressure 85/49 Arterial Blood Pressure 93/54 Arterial Blood Pressure 105/58 Arterial Blood Pressure 86/56 GENERAL: The patient is lying in bed and does not seem in acute distress. CHEST: The heart rate is regular rate rhythm. No murmurs to auscultation. LUNG: Clear to auscultation bilaterally no wheezing noted throughout. Not labored breathing. Intubated and is on ventilator. ABDOMEN/GI: Bowel sounds present in all 4 quadrants. No tenderness to palpation throughout. NEUROLOGICAL: Limited since on IV Precedex 0.4mcg/kg/hr and her condition. Higher mental function: The patient is comatose. Patient is not verbally repsponsive or following commands. Cranial nerves: I had to manually open eyes. Primary gaze is midline. The pupils are round, equal (3mm) and reactive to light. No facial weakness. Patient would grimace face to painful stimuli. Has positive gag reflex. Is breathing over the vent. Motor: The strength is unable to assess. But would grimace face to painful stimuli throughout. Normal bulk. No spontaneous movement noted. Cerebellum: Could not assess. Sensation: Light touch could not be assessed but grimaces to painful stimuli throughout.. Reflexes (right/left): 1+ throughout.. Plantars are mute bilaterally. Results - Laboratory Findings CBC and BMP: 10/07/21 09:20 10/07/21 09:20 Abnormal Lab Findings: Abnormal Labs 09/30/21 09/30/21 09/30/21 23:56 23:56 23:56 WBC RBC Hgb Hct MCHC 30.3 L Plt Count Neutrophils # Neutrophils # (Manual) Lymphocytes # Lymphocytes # (Manual) 0.54 L Metamyelocytes # (Man) 0.34 H Myelocytes # (Manual) 0.07 H PT INR APTT ABG pH ABG pCO2 ABG pO2 ABG HCO3 ABG Total CO2 ABG O2 Saturation Sodium Potassium Chloride Carbon Dioxide 10 L BUN 28 H Creatinine 1.85 H Glucose 107 H POC Glucose (mg/dL) Hemoglobin A1c Plasma Lactic Acid Khris Calcium Ionized Calcium Ashley Phosphorus 7.4 H Magnesium 2.7 H Ferritin Total Bilirubin 1.5 H AST 45 H Alkaline Phosphatase Lactate Dehydrogenase Creatine Kinase Total Protein Albumin Amylase 148 H PTH Intact Urine Protein 2+ H Urine Blood Trace H Ur Leukocyte Esterase Moderate H Urine WBC 63 H Urine WBC Clumps Occasional H Amorphous Sediment Occasional H Urine Bacteria Rare H Hyaline Casts 3 H Urine Mucus Rare H Cyclosporine Coronavirus (PCR) 09/30/21 10/01/21 10/01/21 23:56 01:49 03:28 WBC RBC Hgb Hct MCHC Plt Count Neutrophils # Neutrophils # (Manual) Lymphocytes # Lymphocytes # (Manual) Metamyelocytes # (Man) Myelocytes # (Manual) PT INR APTT ABG pH 7.23 L ABG pCO2 ABG pO2 >400 H ABG HCO3 15 L ABG Total CO2 16 L ABG O2 Saturation 100.0 H Sodium Potassium Chloride Carbon Dioxide BUN Creatinine Glucose POC Glucose (mg/dL) Hemoglobin A1c Plasma Lactic Acid Khris 12.6 H* 4.0 H* Calcium Ionized Calcium Ashley Phosphorus Magnesium Ferritin Total Bilirubin AST Alkaline Phosphatase Lactate Dehydrogenase Creatine Kinase Total Protein Albumin Amylase PTH Intact Urine Protein Urine Blood Ur Leukocyte Esterase Urine WBC Urine WBC Clumps Amorphous Sediment Urine Bacteria Hyaline Casts Urine Mucus Cyclosporine Coronavirus (PCR) 10/01/21 10/01/21 10/01/21 05:30 06:10 06:12 WBC RBC Hgb Hct MCHC Plt Count Neutrophils # Neutrophils # (Manual) Lymphocytes # Lymphocytes # (Manual) Metamyelocytes # (Man) Myelocytes # (Manual) PT INR APTT ABG pH 7.34 L ABG pCO2 ABG pO2 ABG HCO3 19 L ABG Total CO2 ABG O2 Saturation Sodium Potassium Chloride Carbon Dioxide BUN Creatinine Glucose POC Glucose (mg/dL) 109 H Hemoglobin A1c Plasma Lactic Acid Khris 3.9 H* Calcium Ionized Calcium Ashley Phosphorus Magnesium Ferritin Total Bilirubin AST Alkaline Phosphatase Lactate Dehydrogenase Creatine Kinase Total Protein Albumin Amylase PTH Intact Urine Protein Urine Blood Ur Leukocyte Esterase Urine WBC Urine WBC Clumps Amorphous Sediment Urine Bacteria Hyaline Casts Urine Mucus Cyclosporine Coronavirus (PCR) 10/01/21 10/01/21 10/01/21 08:20 09:36 09:36 WBC RBC Hgb Hct MCHC Plt Count Neutrophils # Neutrophils # (Manual) Lymphocytes # Lymphocytes # (Manual) Metamyelocytes # (Man) Myelocytes # (Manual) PT INR APTT ABG pH ABG pCO2 ABG pO2 ABG HCO3 ABG Total CO2 ABG O2 Saturation Sodium Potassium 3.1 L Chloride 110 H Carbon Dioxide 16 L BUN 31 H Creatinine 2.20 H Glucose 119 H POC Glucose (mg/dL) Hemoglobin A1c Plasma Lactic Acid Khris Calcium 7.4 L Ionized Calcium Ashley Phosphorus Magnesium Ferritin 73418.0 H Total Bilirubin AST Alkaline Phosphatase Lactate Dehydrogenase 921 H Creatine Kinase Total Protein Albumin Amylase PTH Intact Urine Protein Urine Blood Ur Leukocyte Esterase Urine WBC Urine WBC Clumps Amorphous Sediment Urine Bacteria Hyaline Casts Urine Mucus Cyclosporine Coronavirus (PCR) Detected A 10/02/21 10/02/21 10/02/21 05:00 05:20 05:20 WBC 24.6 H RBC Hgb Hct MCHC 30.4 L Plt Count 123 L Neutrophils # Neutrophils # (Manual) 22.80 H Lymphocytes # Lymphocytes # (Manual) 0.25 L Metamyelocytes # (Man) 0.98 H Myelocytes # (Manual) PT INR APTT ABG pH 7.25 L ABG pCO2 31 L ABG pO2 ABG HCO3 14 L ABG Total CO2 14 L ABG O2 Saturation Sodium Potassium Chloride Carbon Dioxide BUN Creatinine Glucose POC Glucose (mg/dL) Hemoglobin A1c Plasma Lactic Acid Khris Calcium Ionized Calcium Ashley Phosphorus Magnesium Ferritin Total Bilirubin AST Alkaline Phosphatase Lactate Dehydrogenase Creatine Kinase Total Protein Albumin Amylase PTH Intact Urine Protein Urine Blood Ur Leukocyte Esterase Urine WBC Urine WBC Clumps Amorphous Sediment Urine Bacteria Hyaline Casts Urine Mucus Cyclosporine 52 L Coronavirus (PCR) 10/02/21 10/02/21 10/02/21 05:20 22:25 22:25 WBC 29.7 H RBC 3.68 L Hgb 11.1 L Hct MCHC Plt Count 76 L Neutrophils # Neutrophils # (Manual) 28.20 H Lymphocytes # Lymphocytes # (Manual) 0.59 L Metamyelocytes # (Man) Myelocytes # (Manual) PT 16.2 H INR 1.6 H APTT >200.0 H* ABG pH ABG pCO2 ABG pO2 ABG HCO3 ABG Total CO2 ABG O2 Saturation Sodium 136 L Potassium Chloride 109 H Carbon Dioxide 11 L BUN 38 H Creatinine 3.04 H Glucose POC Glucose (mg/dL) Hemoglobin A1c Plasma Lactic Acid Khris Calcium 5.9 L* Ionized Calcium Ashley Phosphorus 8.6 H Magnesium Ferritin Total Bilirubin AST 109 H Alkaline Phosphatase Lactate Dehydrogenase Creatine Kinase Total Protein 3.8 L Albumin 2.0 L Amylase PTH Intact Urine Protein Urine Blood Ur Leukocyte Esterase Urine WBC Urine WBC Clumps Amorphous Sediment Urine Bacteria Hyaline Casts Urine Mucus Cyclosporine Coronavirus (PCR) 10/02/21 10/03/21 10/03/21 23:55 04:45 04:45 WBC 31.9 H RBC 3.74 L Hgb 11.1 L Hct MCHC Plt Count 62 L Neutrophils # Neutrophils # (Manual) 29.90 H Lymphocytes # Lymphocytes # (Manual) Metamyelocytes # (Man) 0.32 H Myelocytes # (Manual) PT INR APTT 175.3 H* ABG pH ABG pCO2 ABG pO2 ABG HCO3 ABG Total CO2 ABG O2 Saturation Sodium 134 L Potassium Chloride 97 L Carbon Dioxide BUN 46 H Creatinine 3.52 H Glucose 163 H POC Glucose (mg/dL) Hemoglobin A1c Plasma Lactic Acid Khris Calcium 5.5 L* Ionized Calcium Ashley Phosphorus Magnesium Ferritin Total Bilirubin AST 126 H Alkaline Phosphatase Lactate Dehydrogenase Creatine Kinase Total Protein 4.0 L Albumin 1.9 L Amylase PTH Intact Urine Protein Urine Blood Ur Leukocyte Esterase Urine WBC Urine WBC Clumps Amorphous Sediment Urine Bacteria Hyaline Casts Urine Mucus Cyclosporine Coronavirus (PCR) 10/03/21 10/03/21 10/03/21 04:45 05:05 05:45 WBC RBC Hgb Hct MCHC Plt Count Neutrophils # Neutrophils # (Manual) Lymphocytes # Lymphocytes # (Manual) Metamyelocytes # (Man) Myelocytes # (Manual) PT 12.6 H INR 1.2 H APTT 108.8 H* ABG pH ABG pCO2 ABG pO2 81 L ABG HCO3 ABG Total CO2 25 H ABG O2 Saturation Sodium Potassium Chloride Carbon Dioxide BUN Creatinine Glucose POC Glucose (mg/dL) Hemoglobin A1c Plasma Lactic Acid Khris Calcium Ionized Calcium Ashley 3.0 L* Phosphorus Magnesium Ferritin Total Bilirubin AST Alkaline Phosphatase Lactate Dehydrogenase Creatine Kinase Total Protein Albumin Amylase PTH Intact Urine Protein Urine Blood Ur Leukocyte Esterase Urine WBC Urine WBC Clumps Amorphous Sediment Urine Bacteria Hyaline Casts Urine Mucus Cyclosporine Coronavirus (PCR) 10/03/21 10/03/21 10/04/21 16:18 20:00 03:47 WBC 28.5 H RBC 3.23 L Hgb 9.8 L Hct 29.7 L MCHC Plt Count 50 L Neutrophils # Neutrophils # (Manual) 27.90 H Lymphocytes # Lymphocytes # (Manual) 0.29 L Metamyelocytes # (Man) Myelocytes # (Manual) PT INR APTT ABG pH ABG pCO2 ABG pO2 ABG HCO3 ABG Total CO2 ABG O2 Saturation Sodium 132 L Potassium Chloride 94 L Carbon Dioxide BUN 48 H Creatinine 3.24 H Glucose 160 H POC Glucose (mg/dL) Hemoglobin A1c Plasma Lactic Acid Khris Calcium 5.3 L* 5.9 L* Ionized Calcium Ashley Phosphorus Magnesium Ferritin Total Bilirubin AST 126 H Alkaline Phosphatase Lactate Dehydrogenase Creatine Kinase Total Protein 3.1 L Albumin 1.6 L Amylase PTH Intact Urine Protein Urine Blood Ur Leukocyte Esterase Urine WBC Urine WBC Clumps Amorphous Sediment Urine Bacteria Hyaline Casts Urine Mucus Cyclosporine Coronavirus (PCR) 10/04/21 10/04/21 10/04/21 03:47 05:11 05:40 WBC RBC Hgb Hct MCHC Plt Count Neutrophils # Neutrophils # (Manual) Lymphocytes # Lymphocytes # (Manual) Metamyelocytes # (Man) Myelocytes # (Manual) PT INR APTT ABG pH 7.52 H ABG pCO2 ABG pO2 ABG HCO3 31 H ABG Total CO2 32 H ABG O2 Saturation 97.4 H Sodium 131 L Potassium 2.9 L Chloride 89 L Carbon Dioxide BUN 49 H Creatinine 3.21 H Glucose 188 H POC Glucose (mg/dL) 216 H Hemoglobin A1c Plasma Lactic Acid Khris Calcium 5.8 L* Ionized Calcium Ashley Phosphorus Magnesium Ferritin Total Bilirubin AST 108 H Alkaline Phosphatase Lactate Dehydrogenase Creatine Kinase Total Protein 3.0 L Albumin 1.6 L Amylase PTH Intact Urine Protein Urine Blood Ur Leukocyte Esterase Urine WBC Urine WBC Clumps Amorphous Sediment Urine Bacteria Hyaline Casts Urine Mucus Cyclosporine Coronavirus (PCR) 10/04/21 10/04/21 10/04/21 08:00 08:00 08:00 WBC RBC Hgb Hct MCHC Plt Count Neutrophils # Neutrophils # (Manual) Lymphocytes # Lymphocytes # (Manual) Metamyelocytes # (Man) Myelocytes # (Manual) PT INR APTT ABG pH ABG pCO2 ABG pO2 ABG HCO3 ABG Total CO2 ABG O2 Saturation Sodium Potassium Chloride Carbon Dioxide BUN Creatinine Glucose POC Glucose (mg/dL) Hemoglobin A1c Plasma Lactic Acid Khris Calcium Ionized Calcium Ashley 3.5 L* Phosphorus Magnesium 1.5 L Ferritin Total Bilirubin AST Alkaline Phosphatase Lactate Dehydrogenase Creatine Kinase 554 H Total Protein Albumin Amylase PTH Intact 214.0 H Urine Protein Urine Blood Ur Leukocyte Esterase Urine WBC Urine WBC Clumps Amorphous Sediment Urine Bacteria Hyaline Casts Urine Mucus Cyclosporine Coronavirus (PCR) 10/04/21 10/04/21 10/04/21 08:00 11:54 15:18 WBC RBC Hgb Hct MCHC Plt Count Neutrophils # Neutrophils # (Manual) Lymphocytes # Lymphocytes # (Manual) Metamyelocytes # (Man) Myelocytes # (Manual) PT INR APTT ABG pH ABG pCO2 ABG pO2 ABG HCO3 ABG Total CO2 ABG O2 Saturation Sodium Potassium 2.9 L Chloride Carbon Dioxide BUN Creatinine Glucose POC Glucose (mg/dL) 119 H Hemoglobin A1c Plasma Lactic Acid Khris Calcium Ionized Calcium Ashley Phosphorus 5.4 H Magnesium Ferritin Total Bilirubin AST Alkaline Phosphatase Lactate Dehydrogenase Creatine Kinase Total Protein Albumin Amylase PTH Intact Urine Protein Urine Blood Ur Leukocyte Esterase Urine WBC Urine WBC Clumps Amorphous Sediment Urine Bacteria Hyaline Casts Urine Mucus Cyclosporine Coronavirus (PCR) 10/04/21 10/04/21 10/05/21 17:30 23:57 03:25 WBC RBC Hgb Hct MCHC Plt Count Neutrophils # Neutrophils # (Manual) Lymphocytes # Lymphocytes # (Manual) Metamyelocytes # (Man) Myelocytes # (Manual) PT INR APTT ABG pH ABG pCO2 ABG pO2 ABG HCO3 ABG Total CO2 ABG O2 Saturation Sodium Potassium Chloride Carbon Dioxide BUN Creatinine Glucose POC Glucose (mg/dL) 118 H 115 H Hemoglobin A1c 6.5 H Plasma Lactic Acid Khris Calcium Ionized Calcium Ashley Phosphorus Magnesium Ferritin Total Bilirubin AST Alkaline Phosphatase Lactate Dehydrogenase Creatine Kinase Total Protein Albumin Amylase PTH Intact Urine Protein Urine Blood Ur Leukocyte Esterase Urine WBC Urine WBC Clumps Amorphous Sediment Urine Bacteria Hyaline Casts Urine Mucus Cyclosporine Coronavirus (PCR) 10/05/21 10/05/21 10/05/21 03:25 03:25 05:49 WBC 26.5 H RBC 3.08 L Hgb 8.8 L Hct 28.7 L MCHC 30.5 L Plt Count 50 L Neutrophils # 25.1 H Neutrophils # (Manual) Lymphocytes # 0.4 L Lymphocytes # (Manual) Metamyelocytes # (Man) Myelocytes # (Manual) PT INR APTT ABG pH 7.54 H ABG pCO2 ABG pO2 80 L ABG HCO3 32 H ABG Total CO2 33 H ABG O2 Saturation Sodium 133 L Potassium 3.1 L Chloride 93 L Carbon Dioxide BUN 51 H Creatinine 2.74 H Glucose 114 H POC Glucose (mg/dL) Hemoglobin A1c Plasma Lactic Acid Khris Calcium 6.3 L* Ionized Calcium Ashley Phosphorus Magnesium Ferritin Total Bilirubin AST 72 H Alkaline Phosphatase Lactate Dehydrogenase Creatine Kinase Total Protein 3.0 L Albumin 1.6 L Amylase PTH Intact Urine Protein Urine Blood Ur Leukocyte Esterase Urine WBC Urine WBC Clumps Amorphous Sediment Urine Bacteria Hyaline Casts Urine Mucus Cyclosporine Coronavirus (PCR) 10/05/21 10/05/21 10/05/21 11:40 19:00 20:17 WBC RBC Hgb Hct MCHC Plt Count Neutrophils # Neutrophils # (Manual) Lymphocytes # Lymphocytes # (Manual) Metamyelocytes # (Man) Myelocytes # (Manual) PT INR APTT ABG pH ABG pCO2 ABG pO2 ABG HCO3 ABG Total CO2 ABG O2 Saturation Sodium Potassium 3.3 L Chloride Carbon Dioxide BUN Creatinine Glucose POC Glucose (mg/dL) 124 H 174 H Hemoglobin A1c Plasma Lactic Acid Khris Calcium 6.6 L Ionized Calcium Ashley Phosphorus Magnesium Ferritin Total Bilirubin AST Alkaline Phosphatase Lactate Dehydrogenase Creatine Kinase Total Protein Albumin Amylase PTH Intact Urine Protein Urine Blood Ur Leukocyte Esterase Urine WBC Urine WBC Clumps Amorphous Sediment Urine Bacteria Hyaline Casts Urine Mucus Cyclosporine Coronavirus (PCR) 10/05/21 10/06/21 10/06/21 20:17 00:25 03:58 WBC 28.3 H RBC 3.22 L Hgb 9.5 L Hct 30.2 L MCHC Plt Count 72 L Neutrophils # 26.1 H Neutrophils # (Manual) Lymphocytes # 0.8 L Lymphocytes # (Manual) Metamyelocytes # (Man) Myelocytes # (Manual) PT INR APTT ABG pH ABG pCO2 ABG pO2 ABG HCO3 ABG Total CO2 ABG O2 Saturation Sodium Potassium Chloride Carbon Dioxide BUN Creatinine Glucose POC Glucose (mg/dL) 129 H Hemoglobin A1c Plasma Lactic Acid Khris Calcium Ionized Calcium Ashley 4.0 L Phosphorus Magnesium Ferritin Total Bilirubin AST Alkaline Phosphatase Lactate Dehydrogenase Creatine Kinase Total Protein Albumin Amylase PTH Intact Urine Protein Urine Blood Ur Leukocyte Esterase Urine WBC Urine WBC Clumps Amorphous Sediment Urine Bacteria Hyaline Casts Urine Mucus Cyclosporine Coronavirus (PCR) 10/06/21 10/06/21 10/06/21 03:58 05:18 11:24 WBC RBC Hgb Hct MCHC Plt Count Neutrophils # Neutrophils # (Manual) Lymphocytes # Lymphocytes # (Manual) Metamyelocytes # (Man) Myelocytes # (Manual) PT INR APTT ABG pH 7.52 H ABG pCO2 ABG pO2 66 L ABG HCO3 33 H ABG Total CO2 35 H ABG O2 Saturation Sodium Potassium 3.4 L Chloride Carbon Dioxide 32 H BUN 61 H Creatinine 2.66 H Glucose 117 H POC Glucose (mg/dL) 136 H Hemoglobin A1c Plasma Lactic Acid Khris Calcium 6.6 L Ionized Calcium Ashley Phosphorus Magnesium Ferritin Total Bilirubin AST 47 H Alkaline Phosphatase 146 H Lactate Dehydrogenase Creatine Kinase Total Protein 3.2 L Albumin 1.6 L Amylase PTH Intact Urine Protein Urine Blood Ur Leukocyte Esterase Urine WBC Urine WBC Clumps Amorphous Sediment Urine Bacteria Hyaline Casts Urine Mucus Cyclosporine Coronavirus (PCR) 10/06/21 10/07/21 10/07/21 17:20 00:54 06:03 WBC RBC Hgb Hct MCHC Plt Count Neutrophils # Neutrophils # (Manual) Lymphocytes # Lymphocytes # (Manual) Metamyelocytes # (Man) Myelocytes # (Manual) PT INR APTT ABG pH 7.59 H* ABG pCO2 33 L ABG pO2 56 L* ABG HCO3 32 H ABG Total CO2 33 H ABG O2 Saturation 91.7 L Sodium Potassium Chloride Carbon Dioxide BUN Creatinine Glucose POC Glucose (mg/dL) 143 H 150 H Hemoglobin A1c Plasma Lactic Acid Khris Calcium Ionized Calcium Ashley Phosphorus Magnesium Ferritin Total Bilirubin AST Alkaline Phosphatase Lactate Dehydrogenase Creatine Kinase Total Protein Albumin Amylase PTH Intact Urine Protein Urine Blood Ur Leukocyte Esterase Urine WBC Urine WBC Clumps Amorphous Sediment Urine Bacteria Hyaline Casts Urine Mucus Cyclosporine Coronavirus (PCR) 10/07/21 10/07/21 10/07/21 07:50 09:20 09:20 WBC 26.2 H RBC 3.23 L Hgb 9.4 L Hct 30.0 L MCHC Plt Count 126 L D Neutrophils # 23.9 H Neutrophils # (Manual) Lymphocytes # 0.9 L Lymphocytes # (Manual) Metamyelocytes # (Man) Myelocytes # (Manual) PT INR APTT ABG pH ABG pCO2 ABG pO2 ABG HCO3 ABG Total CO2 ABG O2 Saturation Sodium Potassium 3.2 L Chloride Carbon Dioxide BUN 83 H Creatinine 2.16 H Glucose 123 H POC Glucose (mg/dL) 138 H Hemoglobin A1c Plasma Lactic Acid Khris Calcium 6.4 L* Ionized Calcium Ashley Phosphorus Magnesium Ferritin Total Bilirubin AST Alkaline Phosphatase 221 H Lactate Dehydrogenase Creatine Kinase Total Protein 3.3 L Albumin 1.7 L Amylase PTH Intact Urine Protein Urine Blood Ur Leukocyte Esterase Urine WBC Urine WBC Clumps Amorphous Sediment Urine Bacteria Hyaline Casts Urine Mucus Cyclosporine Coronavirus (PCR) 10/07/21 10/07/21 11:25 18:12 WBC RBC Hgb Hct MCHC Plt Count Neutrophils # Neutrophils # (Manual) Lymphocytes # Lymphocytes # (Manual) Metamyelocytes # (Man) Myelocytes # (Manual) PT INR APTT ABG pH ABG pCO2 ABG pO2 ABG HCO3 ABG Total CO2 ABG O2 Saturation Sodium Potassium Chloride Carbon Dioxide BUN Creatinine Glucose POC Glucose (mg/dL) 132 H 136 H Hemoglobin A1c Plasma Lactic Acid Khris Calcium Ionized Calcium Ashley Phosphorus Magnesium Ferritin Total Bilirubin AST Alkaline Phosphatase Lactate Dehydrogenase Creatine Kinase Total Protein Albumin Amylase PTH Intact Urine Protein Urine Blood Ur Leukocyte Esterase Urine WBC Urine WBC Clumps Amorphous Sediment Urine Bacteria Hyaline Casts Urine Mucus Cyclosporine Coronavirus (PCR) Assessment and Plan Assessment: Altered mental status due to multi-factorial: Metabolic encephalopathy with acute kidney insufficiency, electrolyte abnormality and COVID-19 pneumonia as well sedation IV Precedex. Septic shock due to abdominal sepsis Acute COVID-19 pneumonia Acute pneumoperitoneum and abdominal sepsis with perforation of sigmoid requiring surgery, colostomy postop day 6 Acute hypoxia worsens her failure and is intubated on the ventilator Chronic kidney disease--- trending down Chronic atrial fibrillation and was on Eliquis at home History of kidney addressed rotation on immunosuppressant therapy (CellCept, prednisone and cyclosporine) History of breast cancer/lobular carcinoma in situ requiring surgery only Plan: Ordered a routine EEG. I'll not start the patient on antiepileptic drug unless there is epileptiform discharges or seizure on EEG. CT of the head is ordered and is pending Every 2 neurochecks Nephrology is on board Infection disease team is on board Cardiology is on board for A. fib. Once she is stable recommend restarting the patient anticoagulation. We'll defer the rest of medical management to the primary denies E team. Thank you for the consultation. The plan is discussed with the nurse. Esdras Swift M.D. Neuro-Hospitalist. Time with Patient: Greater than 30
[2021-10-08] MEDS: DEXMEDETOMIDINE/0.9% NACL(PMX) 400 MCG in EMPTY BAG 1 BAG IV SCH ×2 (00:20→15:09)
[2021-10-08] MEDS: HYDROCORTISONE SUCCINATE 100 MG/2 ML VIAL IV SCH ×4 (00:21→23:51)
[2021-10-08 00:31] LABS: Glucose,Whole Blood 172 mg/dL (75-99)
[2021-10-08] MEDS: INSULIN ASPART (NovoLOG) 100 UNIT/ML VIAL SQ SCH ×5 (00:34→23:52)
[2021-10-08] MEDS: metroNIDAZOLE-NS PMX 500 MG in SALINE 1 100ML.BAG IVPB SCH ×4 (02:15→23:36)
[2021-10-08 04:05] LABS: Basophils # (A) 0.1 k/uL (0-0.2); Basophils % (A) 0 %; Eosinophils % (A) 0 %; HCT 28.6 % (34.0-46.0); HGB 8.9 gm/dL (11.4-16.0); Hypochromasia Moderate; Lymphocytes # (A) 0.6 k/uL (1.0-4.8); Lymphocytes % (A) 2 %; MCH 30.1 pg (25.0-35.0); MCHC 31.1 g/dL (31.0-37.0); MCV 96.6 fL (80.0-100.0); Mean Platelet Volume 13.6; Monocytes # (A) 0.9 k/uL (0-1.0); Monocytes % (A) 3 %; Neutrophils # (A) 28.6 k/uL (1.3-7.7); Neutrophils % (A) 93 %; Platelet Count 178 k/uL (150-450); RBC 2.96 m/uL (3.80-5.40); WBC 30.7 k/uL (3.8-10.6)
[2021-10-08 05:02] LABS: Glucose,Whole Blood 158 mg/dL (75-99)
[2021-10-08 05:23] LABS: Large Platelets Present; Polychromasia Present
[2021-10-08 06:12] LABS: Albumin 1.6 g/dL (3.5-5.0); C Reactive Protein 7.3 mg/dL (<1.0); Magnesium 2.4 mg/dL (1.6-2.3); Phosphorus 5.4 mg/dL (2.5-4.5); Total Bilirubin 0.9 mg/dL (0.2-1.3)
[2021-10-08 06:17] LABS: Calcium 6.4 mg/dL (8.4-10.2)
[2021-10-08 06:26] LABS: ABG Base Excess 5.2 mmol/L; ABG HCO3 30 mmol/L (21-25); ABG Oxygen Saturation 95.2 % (94-97); ABG PCO2 45 mmHg (35-45); ABG PH 7.43 (7.35-7.45); ABG PO2 77 mmHg (83-108); ABG TCO2 31 mmol/L (19-24)
[2021-10-08 06:29] LABS: Allen Test Performed? No
--- NOTE | 2021-10-08 08:09 | EEG ---
ELECTROENCEPHALOGRAM REPORT DATE OF SERVICE: 10/07/2021. CLINICAL HISTORY: This is an 81-year-old woman who had recent COVID-19 pneumonia and has altered mental status. The video EEG is obtained to evaluate for seizure epileptiform activity. RELEVANT MEDICATION: IV Precedex. EEG TYPE: A routine 21-channel EEG is performed with video using the 10/20 electrode placement system. DESCRIPTION: The patient is intubated on a ventilator. During awake state, the background consists of diffuse low to moderate voltage of delta intermixed with theta activity. There is no physiological stage II sleep architecture noted. There is no focal slowing seen. Interictal and ictal is none. ACTIVATION PROCEDURE: Photic stimulation and hyperventilation are not performed. CLINICAL INTERPRETATION: This is an abnormal routine EEG. The background slowing is suggestive of moderate to severe encephalopathy. There is no focal slowing, epileptiform discharge or seizure on the EEG. Clinical correlation is recommended. If concern for seizure continues, recommend 2-1/2-hour EEG. MMODL / IJN: [id number] / MTDFabrizio
--- NOTE | 2021-10-08 09:23 | XR ---
EXAMINATION TYPE: XR chest 1V portable DATE OF EXAM: 10/08/2021 COMPARISON: 10/07/2021 HISTORY: Tube placement TECHNIQUE: Single frontal view of the chest is obtained. FINDINGS: ET and NG tube and central line stable bilateral infiltrate and pleural effusion. No pneum othorax. Underlying COPD noted. Arthropathy of the shoulders. Atherosclerotic change aorta. IMPRESSION: COPD with bilateral infiltrate and pleural effusion
[2021-10-08] MEDS: CHLORHEXIDINE GLUCONATE 15 ML CUP MUCOUS MEM SCH ×2 (09:51→22:21)
[2021-10-08] MEDS: PANTOPRAZOLE 40 MG/10 ML VIAL IV SCH (09:51)
[2021-10-08] MEDS: ENOXAPARIN 30 MG/0.3 ML SYRINGE SQ SCH (09:51)
[2021-10-08] MEDS: METOPROLOL TARTRATE 25 MG TAB PO SCH (09:52)
[2021-10-08] MEDS: POTASSIUM BICARBONATE/CIT AC 20 MEQ TABLET.EFF NG-TUBE SCH ×4 (09:52→19:10)
[2021-10-08] MEDS: cycloSPORINE 25 MG CAP PO SCH ×2 (09:52→22:21)
[2021-10-08] MEDS: CALCIUM CARBONATE 500 MG CHEWABLE PO SCH ×2 (09:52→22:21)
[2021-10-08] MEDS: PIPERACILLIN-TAZOBACTAM 3.375 GM in SODIUM CHLORIDE 0.9% 100 ML IVPB SCH ×2 (09:53→23:22)
--- NOTE | 2021-10-08 10:10 | P.PN ---
Subjective Patient is seen in follow-up for acute allograft dysfunction. Intubated. Receiving tube feeds. On low-dose Levophed. Urine output 30 mL an hour. Blood pressure stable. Vital signs are stable. General: Intubated. HEENT: Head exam is unremarkable. LUNGS: Breath sounds decreased. HEART: Tachycardic. ABDOMEN: No distention. EXTREMITITES: 1+ edema. Objective - Vital Signs Vital signs: Vital Signs Temp 98.2 F 10/07/21 16:00 Pulse 112 H 10/08/21 07:00 Resp 28 H 10/08/21 07:00 BP 147/78 10/08/21 07:00 Pulse Ox 95 10/08/21 03:00 Intake & Output 10/07/21 10/08/21 10/08/21 18:59 06:59 18:59 Intake Total 1095.171 797.106 18.13 Output Total 925 690 30 Balance 170.171 107.106 -11.87 Weight 64.5 kg 70 kg Intake: IV 346 333 3 Piperacillin-Tazobactam 3 100 100 .375 gm In Sodium Chloride 0.9% 100 ml @ 25 mls/hr IVPB Q12H [facility] Rx# :[id number] Pressure Bag 36 33 3 Sodium Chloride 0.9% 1, 10 000 ml @ 10 mls/hr IV . Q24H [facility] Rx#:[id number] metroNIDAZOLE-NS PMX 500 200 200 mg In Saline 1 100ml.bag @ 100 mls/hr IVPB Q6H [facility] Rx#:[id number] Intake, IV Titration 145.171 78.106 15.13 Amount Dexmedetomidine/0.9% NaCl 20.369 57.297 (Pmx) 400 mcg In Empty Bag 1 bag @ 0.2 MCG/KG/HR 3.225 mls/hr IV .Q24H [facility] Rx#:[id number] Norepinephrine 32 mg In 4.802 10.809 15.13 Sodium Chloride 0.9% 218 ml @ 0.05 MCG/KG/MIN 1. 329 mls/hr IV .Q24H [facility] Rx#:[id number] Sodium Chloride 0.9% 1, 120 10 000 ml @ 10 mls/hr IV . Q24H [facility] Rx#:[id number] Tube Feeding 394 186 Other 210 200 Output: Urine 425 340 30 Stool 500 350 Other: Voiding Method Indwelling Catheter Indwelling Catheter ABP, PAP, CO, CI - Last Documented Arterial Blood Pressure 111/66 - Labs CBC & Chem 7: 10/08/21 03:25 10/08/21 03:25 Labs: Abnormal Lab Results - Last 24 Hours (Table) 10/07/21 10/07/21 10/07/21 Range/Units 09:20 09:20 11:25 WBC 26.2 H (3.8-10.6) k/uL RBC 3.23 L (3.80-5.40) m/uL Hgb 9.4 L (11.4-16.0) gm/dL Hct 30.0 L (34.0-46.0) % Plt Count 126 L D (150-450) k/uL Neutrophils # 23.9 H (1.3-7.7) k/uL Lymphocytes # 0.9 L (1.0-4.8) k/uL ABG pO2 (83-108) mmHg ABG HCO3 (21-25) mmol/L ABG Total CO2 (19-24) mmol/L Potassium 3.2 L (3.5-5.1) mmol/L BUN 83 H (7-17) mg/dL Creatinine 2.16 H (0.52-1.04) mg/dL Glucose 123 H (74-99) mg/dL POC Glucose (mg/dL) 132 H (75-99) mg/dL Calcium 6.4 L* (8.4-10.2) mg/dL Phosphorus (2.5-4.5) mg/dL Magnesium (1.6-2.3) mg/dL Alkaline Phosphatase 221 H (38-126) U/L Lactate Dehydrogenase (313-618) U/L C-Reactive Protein (<1.0) mg/dL Total Protein 3.3 L (6.3-8.2) g/dL Albumin 1.7 L (3.5-5.0) g/dL 10/07/21 10/08/21 10/08/21 Range/Units 18:12 00:29 03:25 WBC 30.7 H (3.8-10.6) k/uL RBC 2.96 L (3.80-5.40) m/uL Hgb 8.9 L (11.4-16.0) gm/dL Hct 28.6 L (34.0-46.0) % Plt Count (150-450) k/uL Neutrophils # 28.6 H (1.3-7.7) k/uL Lymphocytes # 0.6 L (1.0-4.8) k/uL ABG pO2 (83-108) mmHg ABG HCO3 (21-25) mmol/L ABG Total CO2 (19-24) mmol/L Potassium (3.5-5.1) mmol/L BUN (7-17) mg/dL Creatinine (0.52-1.04) mg/dL Glucose (74-99) mg/dL POC Glucose (mg/dL) 136 H 172 H (75-99) mg/dL Calcium (8.4-10.2) mg/dL Phosphorus (2.5-4.5) mg/dL Magnesium (1.6-2.3) mg/dL Alkaline Phosphatase (38-126) U/L Lactate Dehydrogenase (313-618) U/L C-Reactive Protein (<1.0) mg/dL Total Protein (6.3-8.2) g/dL Albumin (3.5-5.0) g/dL 10/08/21 10/08/21 10/08/21 Range/Units 03:25 05:01 05:24 WBC (3.8-10.6) k/uL RBC (3.80-5.40) m/uL Hgb (11.4-16.0) gm/dL Hct (34.0-46.0) % Plt Count (150-450) k/uL Neutrophils # (1.3-7.7) k/uL Lymphocytes # (1.0-4.8) k/uL ABG pO2 77 L (83-108) mmHg ABG HCO3 30 H (21-25) mmol/L ABG Total CO2 31 H (19-24) mmol/L Potassium 3.0 L (3.5-5.1) mmol/L BUN 90 H (7-17) mg/dL Creatinine 2.63 H (0.52-1.04) mg/dL Glucose 158 H (74-99) mg/dL POC Glucose (mg/dL) 158 H (75-99) mg/dL Calcium 6.4 L* (8.4-10.2) mg/dL Phosphorus 5.4 H (2.5-4.5) mg/dL Magnesium 2.4 H (1.6-2.3) mg/dL Alkaline Phosphatase 241 H (38-126) U/L Lactate Dehydrogenase 1024 H (313-618) U/L C-Reactive Protein 7.3 H (<1.0) mg/dL Total Protein 3.0 L (6.3-8.2) g/dL Albumin 1.6 L (3.5-5.0) g/dL Microbiology - Last 24 Hours (Table) 10/02/21 10:51 Blood Culture - Preliminary Blood No Growth after 120 hours 10/02/21 10:30 Blood Culture - Preliminary Blood No Growth after 120 hours Assessment and Plan Plan: Assessment: 1. 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 Baseline creatinine near 1 and peaked at 3.5 to this admission - 2.63 today. No hydronephrosis noted on CAT scan. 2. Status post renal transplant in 2017 at [facility]. 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 3. Metabolic acidosis secondary to acute kidney injury and lactic acidosis. Resolved. Now alkalotic - improved with Diamox. 4. Pneumoperitoneum s/p exploratory laparotomy, right oophorectomy and colostomy this admission. 5. Septic shock on low dose levophed. 6. COVID-19 infection. 7. Acute hypoxic respiratory failure. 8. Volume overload. 9. Hypocalcemia secondary to acute kidney injury maintained on vitamin D supplementation and Tums. PTH 214. Vitamin D level 35.9. Corrected calcium for albumin is 8.3. 10. Hypokalemia from diuresis and poor intake. Plan: Maintain tube feeds. Replace potassium. She is currently on IV hydrocortisone. Cyclosporine resumed at low dose on 10/07/2021. Continue to monitor renal function and urine output. Stop Diamox. Wean FiO2 and vasopressors.
--- NOTE | 2021-10-08 10:39 | P.PN ---
Subjective Progress Note Date: 10/08/21 The patient is a 81-year-old female admitted with bowel perforation. Patient is mechanically ventilated for acute hypoxic respiratory failure. Patient has a history of permanent atrial fibrillation on Eliquis, TIA, hypertension, dyslipidemia, kidney transplant x2 on immunosuppressive therapy. Patient is examined today resting in bed, mechanically ventilated with no signs of acute distress. She continues to remain in atrial fibrillation, with an uncontrolled ventricle rate. Heart rate averaging 105-112. Her Eliquis for anticoagulation was held due to thrombocytopenia, she is on low-dose Lovenox for DVT prophylaxis. Patient's platelet count has improved, platelets today are 178. Patient is able to be started on Eliquis from cardiac standpoint, when cleared by space control agent. Will increase Lopressor to 50 mg twice a day to better control heart rate. Blood pressure 147/78, heart rate 112, respirations 28, mechanically ventilated, afebrile. Diagnostics: EKG shows patient remains in atrial fibrillation with an uncontrolled ventricle response Echocardiogram showed normal LV function with an ejection fraction of 55-60% Chest x-ray shows COPD with bilateral infiltrates and pleural effusion Labs reviewedhemoglobin 8.9, platelet count 178, sodium 143, potassium 3.0, BUN 90, creatinine 2.63, magnesium 2.4, AST 31, ALT 13 Objective - Vital Signs Vital signs: Vital Signs Temp 98.2 F 10/07/21 16:00 Pulse 112 H 10/08/21 07:00 Resp 28 H 10/08/21 07:00 BP 147/78 10/08/21 07:00 Pulse Ox 95 10/08/21 03:00 Intake & Output 10/07/21 10/08/21 10/08/21 18:59 06:59 18:59 Intake Total 1095.171 797.106 18.13 Output Total 925 690 30 Balance 170.171 107.106 -11.87 Weight 64.5 kg 70 kg Intake: IV 346 333 3 Piperacillin-Tazobactam 3 100 100 .375 gm In Sodium Chloride 0.9% 100 ml @ 25 mls/hr IVPB Q12H [facility] Rx# :[id number] Pressure Bag 36 33 3 Sodium Chloride 0.9% 1, 10 000 ml @ 10 mls/hr IV . Q24H [facility] Rx#:[id number] metroNIDAZOLE-NS PMX 500 200 200 mg In Saline 1 100ml.bag @ 100 mls/hr IVPB Q6H [facility] Rx#:[id number] Intake, IV Titration 145.171 78.106 15.13 Amount Dexmedetomidine/0.9% NaCl 20.369 57.297 (Pmx) 400 mcg In Empty Bag 1 bag @ 0.2 MCG/KG/HR 3.225 mls/hr IV .Q24H [facility] Rx#:[id number] Norepinephrine 32 mg In 4.802 10.809 15.13 Sodium Chloride 0.9% 218 ml @ 0.05 MCG/KG/MIN 1. 329 mls/hr IV .Q24H [facility] Rx#:[id number] Sodium Chloride 0.9% 1, 120 10 000 ml @ 10 mls/hr IV . Q24H [facility] Rx#:[id number] Tube Feeding 394 186 Other 210 200 Output: Urine 425 340 30 Stool 500 350 Other: Voiding Method Indwelling Catheter Indwelling Catheter ABP, PAP, CO, CI - Last Documented Arterial Blood Pressure 111/66 - Exam Physical exam limited to COVID positive PHYSICAL EXAM: VITAL SIGNS: Reviewed. GENERAL: Well-developed in no acute distress. HEENT: Head is normocephalic. NECK: Supple. No JVD or thyromegaly RESPIRATORY: Respirations even and unlabored. Patient mechanically ventilated - Labs CBC & Chem 7: 10/08/21 03:25 10/08/21 03:25 Labs: Abnormal Lab Results - Last 24 Hours (Table) 10/07/21 10/07/21 10/08/21 Range/Units 11:25 18:12 00:29 WBC (3.8-10.6) k/uL RBC (3.80-5.40) m/uL Hgb (11.4-16.0) gm/dL Hct (34.0-46.0) % Neutrophils # (1.3-7.7) k/uL Lymphocytes # (1.0-4.8) k/uL ABG pO2 (83-108) mmHg ABG HCO3 (21-25) mmol/L ABG Total CO2 (19-24) mmol/L Potassium (3.5-5.1) mmol/L BUN (7-17) mg/dL Creatinine (0.52-1.04) mg/dL Glucose (74-99) mg/dL POC Glucose (mg/dL) 132 H 136 H 172 H (75-99) mg/dL Calcium (8.4-10.2) mg/dL Phosphorus (2.5-4.5) mg/dL Magnesium (1.6-2.3) mg/dL Alkaline Phosphatase (38-126) U/L Lactate Dehydrogenase (313-618) U/L C-Reactive Protein (<1.0) mg/dL Total Protein (6.3-8.2) g/dL Albumin (3.5-5.0) g/dL 10/08/21 10/08/21 10/08/21 Range/Units 03:25 03:25 05:01 WBC 30.7 H (3.8-10.6) k/uL RBC 2.96 L (3.80-5.40) m/uL Hgb 8.9 L (11.4-16.0) gm/dL Hct 28.6 L (34.0-46.0) % Neutrophils # 28.6 H (1.3-7.7) k/uL Lymphocytes # 0.6 L (1.0-4.8) k/uL ABG pO2 (83-108) mmHg ABG HCO3 (21-25) mmol/L ABG Total CO2 (19-24) mmol/L Potassium 3.0 L (3.5-5.1) mmol/L BUN 90 H (7-17) mg/dL Creatinine 2.63 H (0.52-1.04) mg/dL Glucose 158 H (74-99) mg/dL POC Glucose (mg/dL) 158 H (75-99) mg/dL Calcium 6.4 L* (8.4-10.2) mg/dL Phosphorus 5.4 H (2.5-4.5) mg/dL Magnesium 2.4 H (1.6-2.3) mg/dL Alkaline Phosphatase 241 H (38-126) U/L Lactate Dehydrogenase 1024 H (313-618) U/L C-Reactive Protein 7.3 H (<1.0) mg/dL Total Protein 3.0 L (6.3-8.2) g/dL Albumin 1.6 L (3.5-5.0) g/dL 10/08/21 Range/Units 05:24 WBC (3.8-10.6) k/uL RBC (3.80-5.40) m/uL Hgb (11.4-16.0) gm/dL Hct (34.0-46.0) % Neutrophils # (1.3-7.7) k/uL Lymphocytes # (1.0-4.8) k/uL ABG pO2 77 L (83-108) mmHg ABG HCO3 30 H (21-25) mmol/L ABG Total CO2 31 H (19-24) mmol/L Potassium (3.5-5.1) mmol/L BUN (7-17) mg/dL Creatinine (0.52-1.04) mg/dL Glucose (74-99) mg/dL POC Glucose (mg/dL) (75-99) mg/dL Calcium (8.4-10.2) mg/dL Phosphorus (2.5-4.5) mg/dL Magnesium (1.6-2.3) mg/dL Alkaline Phosphatase (38-126) U/L Lactate Dehydrogenase (313-618) U/L C-Reactive Protein (<1.0) mg/dL Total Protein (6.3-8.2) g/dL Albumin (3.5-5.0) g/dL Microbiology - Last 24 Hours (Table) 10/02/21 10:51 Blood Culture - Preliminary Blood No Growth after 120 hours 10/02/21 10:30 Blood Culture - Preliminary Blood No Growth after 120 hours Assessment and Plan Assessment: Atrial fibrillation with an uncontrolled ventricular rate Improved thrombocytopenia Hypokalemia History of hypertension History of hyperlipidemia Acute hypoxic respiratory failure requiring mechanical ventilation Septic shock secondary to acute abdominal pneumoperitoneum History of kidney transplant containing on immunosuppressants Plan: Increase Lopressor 50 mg twice a day for heart rate control Patient may be started on Eliquis for anticoagulation due to improved thrombocytopenia, continue to monitor platelet count closely Continue all other current cardiac medications Continue with telemetry monitoring Replace potassium per protocol Further recommendations based on clinical course. The above impression and plan of care have been discussed and directed by the signing physician. Macy Orosco, nurse practitioner, acting as scribe for signing physician.
[2021-10-08 11:41] LABS: Glucose,Whole Blood 213 mg/dL (75-99)
[2021-10-08 11:52] LABS: Glucose,Whole Blood 196 mg/dL (75-99)
[2021-10-08] MEDS ORDERED: LORazepam 2 MG/ML INJ ONE (12:07)
--- NOTE | 2021-10-08 13:25 | P.PN ---
Subjective Progress Note Date: 10/08/21 The patient is seen at bedside and per her nurse, she is about the same. No new neurological issues. Objective - Vital Signs Vital signs: Vital Signs Temp 98.4 F 10/08/21 08:00 Pulse 109 H 10/08/21 11:00 Resp 28 H 10/08/21 11:00 BP 143/85 10/08/21 10:00 Pulse Ox 97 10/08/21 11:00 Intake & Output 10/07/21 10/08/21 10/08/21 18:59 06:59 18:59 Intake Total 1095.171 797.106 302.091 Output Total 925 690 450 Balance 170.171 107.106 -147.909 Weight 64.5 kg 70 kg Intake: IV 346 333 215 Piperacillin-Tazobactam 3 100 100 100 .375 gm In Sodium Chloride 0.9% 100 ml @ 25 mls/hr IVPB Q12H [facility] Rx# :[id number] Pressure Bag 36 33 15 Sodium Chloride 0.9% 1, 10 000 ml @ 10 mls/hr IV . Q24H [facility] Rx#:[id number] metroNIDAZOLE-NS PMX 500 200 200 100 mg In Saline 1 100ml.bag @ 100 mls/hr IVPB Q6H [facility] Rx#:[id number] Intake, IV Titration 145.171 78.106 56.091 Amount Dexmedetomidine/0.9% NaCl 20.369 57.297 (Pmx) 400 mcg In Empty Bag 1 bag @ 0.2 MCG/KG/HR 3.225 mls/hr IV .Q24H [facility] Rx#:[id number] Norepinephrine 32 mg In 4.802 10.809 16.091 Sodium Chloride 0.9% 218 ml @ 0.05 MCG/KG/MIN 1. 329 mls/hr IV .Q24H [facility] Rx#:[id number] Sodium Chloride 0.9% 1, 120 10 40 000 ml @ 10 mls/hr IV . Q24H [facility] Rx#:[id number] Tube Feeding 394 186 31 Other 210 200 Output: Urine 425 340 350 Stool 500 350 100 Other: Voiding Method Indwelling Catheter Indwelling Catheter Indwelling Catheter ABP, PAP, CO, CI - Last Documented Arterial Blood Pressure 110/55 - Exam GENERAL: The patient is lying in bed and does not seem in acute distress. NEUROLOGICAL: Limited since on IV Precedex 0.4mcg/kg/hr and her condition. Higher mental function: The patient is comatose. Patient is not verbally repsponsive or following commands. Cranial nerves: I had to manually open eyes. Primary gaze is midline. The pupils are round, equal (3mm) and reactive to light. No facial weakness. Patient would grimace face to painful stimuli. Has positive gag reflex. Is breathing over the vent. Motor: The strength is unable to assess. But would grimace face to painful stimuli throughout. Normal bulk. No spontaneous movement noted. Cerebellum: Could not assess. Sensation: Light touch could not be assessed but grimaces to painful stimuli throughout.. Reflexes (right/left): 1+ throughout.. Plantars are mute bilaterally. WORK-UP: Potassium 0.2, sodium is 142, calcium 66.4, ionized calcium of 4.0 and was as low as 3.0, phosphorus is 5.4 and was as high as 8.6 during this hospital stay. AST of 35 and ALT of 11. Urine culture was negative for urinary tract infection. Blood cultures are no growth after 120 days Routine EEG on 10/07/2020 is abnormal. The background slowing is suggestive of moderate to severe encephalopathy. There is no focal slowing, epileptiform discharges or seizure on the EEG. CT Brain w/o: Is reported as cerebral atrophy and chronic small vessel ischemia. No acute intracranial abnormality. - Labs CBC & Chem 7: 10/08/21 03:25 10/08/21 03:25 Labs: Abnormal Lab Results - Last 24 Hours (Table) 10/07/21 10/08/21 10/08/21 Range/Units 18:12 00:29 03:25 WBC 30.7 H (3.8-10.6) k/uL RBC 2.96 L (3.80-5.40) m/uL Hgb 8.9 L (11.4-16.0) gm/dL Hct 28.6 L (34.0-46.0) % Neutrophils # 28.6 H (1.3-7.7) k/uL Lymphocytes # 0.6 L (1.0-4.8) k/uL ABG pO2 (83-108) mmHg ABG HCO3 (21-25) mmol/L ABG Total CO2 (19-24) mmol/L Potassium (3.5-5.1) mmol/L BUN (7-17) mg/dL Creatinine (0.52-1.04) mg/dL Glucose (74-99) mg/dL POC Glucose (mg/dL) 136 H 172 H (75-99) mg/dL Calcium (8.4-10.2) mg/dL Phosphorus (2.5-4.5) mg/dL Magnesium (1.6-2.3) mg/dL Alkaline Phosphatase (38-126) U/L Lactate Dehydrogenase (313-618) U/L C-Reactive Protein (<1.0) mg/dL Total Protein (6.3-8.2) g/dL Albumin (3.5-5.0) g/dL 10/08/21 10/08/21 10/08/21 Range/Units 03:25 05:01 05:24 WBC (3.8-10.6) k/uL RBC (3.80-5.40) m/uL Hgb (11.4-16.0) gm/dL Hct (34.0-46.0) % Neutrophils # (1.3-7.7) k/uL Lymphocytes # (1.0-4.8) k/uL ABG pO2 77 L (83-108) mmHg ABG HCO3 30 H (21-25) mmol/L ABG Total CO2 31 H (19-24) mmol/L Potassium 3.0 L (3.5-5.1) mmol/L BUN 90 H (7-17) mg/dL Creatinine 2.63 H (0.52-1.04) mg/dL Glucose 158 H (74-99) mg/dL POC Glucose (mg/dL) 158 H (75-99) mg/dL Calcium 6.4 L* (8.4-10.2) mg/dL Phosphorus 5.4 H (2.5-4.5) mg/dL Magnesium 2.4 H (1.6-2.3) mg/dL Alkaline Phosphatase 241 H (38-126) U/L Lactate Dehydrogenase 1024 H (313-618) U/L C-Reactive Protein 7.3 H (<1.0) mg/dL Total Protein 3.0 L (6.3-8.2) g/dL Albumin 1.6 L (3.5-5.0) g/dL 10/08/21 10/08/21 Range/Units 11:40 11:51 WBC (3.8-10.6) k/uL RBC (3.80-5.40) m/uL Hgb (11.4-16.0) gm/dL Hct (34.0-46.0) % Neutrophils # (1.3-7.7) k/uL Lymphocytes # (1.0-4.8) k/uL ABG pO2 (83-108) mmHg ABG HCO3 (21-25) mmol/L ABG Total CO2 (19-24) mmol/L Potassium (3.5-5.1) mmol/L BUN (7-17) mg/dL Creatinine (0.52-1.04) mg/dL Glucose (74-99) mg/dL POC Glucose (mg/dL) 213 H 196 H (75-99) mg/dL Calcium (8.4-10.2) mg/dL Phosphorus (2.5-4.5) mg/dL Magnesium (1.6-2.3) mg/dL Alkaline Phosphatase (38-126) U/L Lactate Dehydrogenase (313-618) U/L C-Reactive Protein (<1.0) mg/dL Total Protein (6.3-8.2) g/dL Albumin (3.5-5.0) g/dL Microbiology - Last 24 Hours (Table) 10/02/21 10:51 Blood Culture - Final Blood No Growth after 144 hours 10/02/21 10:30 Blood Culture - Final Blood No Growth after 144 hours Assessment and Plan Assessment: Altered mental status due to multi-factorial: Metabolic encephalopathy with acute kidney insufficiency, electrolyte abnormality and COVID-19 pneumonia as well medication use (IV Precedex). Septic shock due to abdominal sepsis Acute COVID-19 pneumonia Acute pneumoperitoneum and abdominal sepsis with perforation of sigmoid requiring surgery, colostomy postop day 6 Acute hypoxia worsens her failure and is intubated on the ventilator Chronic kidney disease--- trending down Chronic atrial fibrillation and was on Eliquis at home History of kidney addressed rotation on immunosuppressant therapy (CellCept, prednisone and cyclosporine) History of breast cancer/lobular carcinoma in situ requiring surgery only Plan: Ordered 2.5 hour EEG. I'll not start the patient on antiepileptic drug unless there is epileptiform discharges or seizure on EEG. Every 2 neurochecks Nephrology is on board Infection disease team is on board Cardiology is on board for A. fib. Once she is stable recommend restarting the patient anticoagulation. We'll defer the rest of medical management to the primary denies E team. The plan is discussed with the nurse. Esdras Swift M.D. Neuro-Hospitalist. Time with Patient: Less than 30
--- NOTE | 2021-10-08 13:31 | P.PN ---
Subjective Progress Note Date: 10/08/21 HISTORY OF PRESENT ILLNESS This is an 81-year-old pleasant female patient of Dr. Henao, with known history of hypertension, CK D stage III, paroxysmal atrial fibrillation admitted through the emergency room secondary to abdominal pain and found to have pneumoperitoneum. She has significant discomfort, accompanied by nausea, vomiting, no fever. She presented to emergency room with normal findings, in the CAT scan showing moderate pneumoperitoneum, with small bowel thickening, and mild dilatation saray a of the mesenteric considered for mesenteric ischemia there is a left-sided pelvic cystic mass. Chest x-ray shows atelectasis, She is hypotensive, when seen, lactic acid level is high at 12, she was having difficulty of breathing with tachypnea, hence she was preemptively intubated in the emergency room,. She was placed on assist-control, rate of 26, FiO2 40%, PEEP of 5 at the volume of 300. She was sent ICU for stabilization requiring norepinephrine infusion at 0.5 mcg/kg/m for hypotension and septic shock, she received 3.5 L of normal saline for which she is now undergoing exploratory laparotomy. Consult was made with Dr. Price surgeon, and Dr. Nino, critical care ICU physician incidentally, she was tested confirmed Covid positive, on October 0110/02: Patient is seen today in the intensive care unit, remains intubated and on mechanical ventilation with tidal volume 300, FiO2 40 and PEEP of 5. Patient is currently on propofol, bicarb drip, amiodarone is being started for A. fib. Patient is on antibiotics the form of Zosyn and Flagyl. Repeat chest x-ray reveals basilar atelectasis, correlate to exclude pneumonia, possible effusion. Patient is followed by infectious disease, cardiology, system support technician, nephrology, general surgery. Repeat blood work today reveals WBC 24.6, hemoglobin 12.1, platelet count 123. Sodium 136, potassium 4.5, chloride 109, CO2 11, BUN 38 creatinine 3.04. Calcium 5.9. AST 109. Patient remains in isolation for Covid 19. 10/03: Remains intubated on mechanical ventilation with tidal volume 300, FiO2 40, PEEP of 5. She has had very minimal amount output on ostomy. She has been on high-dose levo fed started on vasopressin as well and heparin drip is off due to elevated PTT. She has no output from her OG. Urine output has improved. 10/04: She remains intubated and on mechanical ventilation with tidal volume 300, FiO2 40 and PEEP of 5. Patient started having output from ostomy last evening, liquid brown approximate 950 ML's. Calcium is being replaced. She is still on low-dose norepinephrine and vasopressin as well as IV fluids. Anticipate she will start oral medications and feedings today. Chest x-ray reveals stable bilateral infiltrate and pleural effusion. 10/05 patient remains intubated, PEEP of 5, O2 40% Dilaudid, pressures are little bit on the lower side, still with norepinephrine titrated with bp, NG feedings at 23 mL an hour, output noted in colostomy, no plans for vent weaning at this time in output is adequate patient is on Cortef 100 mg every 8 hours, was on oral prednisone chronically prior to admission. Ahlquist is still on hold, on IV Zosyn and Flagyl 10/06 and 20 rate in the 110s, blood pressure 125/92, remains to be intubated, assist control 16, with FiO2 40%, PEEP of 5. Slightly labored breathing colostomy, without no blood, NG feedings. On Zosyn and Flagyl multiple specialists following, patient remains in ICU 10/07: Patient remains intubated and on mechanical ventilation with tidal volume 300, FiO2 50 and PEEP of 5. Patient remains unresponsive. She is off vasopressors. She is on tube feedings. Urine output has been 30-40 mL per hour. Cardiology is on consult for atrial fibrillation with RVR and started Lopressor 25 mg twice daily. Chest x-ray reveals correlate for congestive heart failure with basilar effusions and associated atelectasis versus edema, pneumonia not excluded. 10/08: Patient remains in the intensive care unit. She has been off propofol. She is on Precedex and remains intubated on mechanical ventilation with tidal volume 300, FiO2 50, PEEP of 5. Patient's been cleared start eliquis tomorrow by Dr. Price. She is on levo fed which is being weaned down. She has had output from her ostomy. EEG is abnormal with background slowing suggestive of moderate to severe encephalopathy. Review of SYSTEMS ROS unobtainable: due to endotracheal tube PHYSICAL EXAMINATION Gen: This is an 81-year-old female, resting on the ICU bed and appears to be comfortable. ET and orogastric tube in place. HEENT: Head is atraumatic, normocephalic. Physical physical examination deferred due to Covid 19, intubation ASSESSMENT AND PLAN 1. Acute pneumoperitoneum, with peritonitis considered for small bowel perforation, underlying ischemic bowel and abdominal sepsis 2. Acute hypoxic respiratory failure requiring mechanical intubation. General surgery, is status post exploratory laparotomy 10/01/2020. She has severe lactic acidosis, hypotension, septic shock. She is off pressors and IV antibiotics. Consult Dr. acharya and continue on Zosyn and Flagyl. Patient is on stress dose of hydrocortisone 100 mg every 8 hours. 3. Small bowel perforation suspected, with septic shock, explore lap on 10/01/1908/10/2022, IV Zosyn 4. Septic shock, IV antibiotics, with fluids w/o pressors 5. History of kidney transplantation, on immunosuppressive agent, CellCept and prednisone and cyclosporine 6. Acute allograft dysfunction secondary to ATN secondary to hypotension and shock CKD, suspect stage III, 7. chronic atrial fibrillation, with prior TIA. Patient is on Lovenox, Lopressor 25 mg twice daily, cardiology consult appreciated. 8. Covid 19 infection, unknown infection time and onset of signs and symptoms, vaccination status not Determined, consult Dr. Acharya 9. Osteoporosis 10. Breast cancer, with lobular carcinoma in situ, had surgery for these activity unknown, 11. 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 Carmona. 12. Hypocalcemia. Continue to monitor and replace 13. Thrombocytopenia secondary to sepsis. Continue to monitor. 14. DVT prophylaxis GI prophylaxis CODE STATUS, full until specified Prognosis guarded. Impression and plan of care have been directed as dictated by the signing physician. Cierra Rodas nurse practitioner acting as scribe for signing physician. Objective - Vital Signs Vital signs: Vital Signs Temp 98.4 F 10/08/21 08:00 Pulse 109 H 10/08/21 11:00 Resp 28 H 10/08/21 11:00 BP 143/85 10/08/21 10:00 Pulse Ox 97 10/08/21 11:00 Intake & Output 10/07/21 10/08/21 10/08/21 18:59 06:59 18:59 Intake Total 1095.171 797.106 302.091 Output Total 925 690 450 Balance 170.171 107.106 -147.909 Weight 64.5 kg 70 kg Intake: IV 346 333 215 Piperacillin-Tazobactam 3 100 100 100 .375 gm In Sodium Chloride 0.9% 100 ml @ 25 mls/hr IVPB Q12H [facility] Rx# :[id number] Pressure Bag 36 33 15 Sodium Chloride 0.9% 1, 10 000 ml @ 10 mls/hr IV . Q24H [facility] Rx#:[id number] metroNIDAZOLE-NS PMX 500 200 200 100 mg In Saline 1 100ml.bag @ 100 mls/hr IVPB Q6H [facility] Rx#:[id number] Intake, IV Titration 145.171 78.106 56.091 Amount Dexmedetomidine/0.9% NaCl 20.369 57.297 (Pmx) 400 mcg In Empty Bag 1 bag @ 0.2 MCG/KG/HR 3.225 mls/hr IV .Q24H [facility] Rx#:[id number] Norepinephrine 32 mg In 4.802 10.809 16.091 Sodium Chloride 0.9% 218 ml @ 0.05 MCG/KG/MIN 1. 329 mls/hr IV .Q24H [facility] Rx#:[id number] Sodium Chloride 0.9% 1, 120 10 40 000 ml @ 10 mls/hr IV . Q24H [facility] Rx#:[id number] Tube Feeding 394 186 31 Other 210 200 Output: Urine 425 340 350 Stool 500 350 100 Other: Voiding Method Indwelling Catheter Indwelling Catheter Indwelling Catheter ABP, PAP, CO, CI - Last Documented Arterial Blood Pressure 110/55 - Labs CBC & Chem 7: 10/08/21 03:25 10/08/21 03:25 Labs: Abnormal Lab Results - Last 24 Hours (Table) 10/07/21 10/08/21 10/08/21 Range/Units 18:12 00:29 03:25 WBC 30.7 H (3.8-10.6) k/uL RBC 2.96 L (3.80-5.40) m/uL Hgb 8.9 L (11.4-16.0) gm/dL Hct 28.6 L (34.0-46.0) % Neutrophils # 28.6 H (1.3-7.7) k/uL Lymphocytes # 0.6 L (1.0-4.8) k/uL ABG pO2 (83-108) mmHg ABG HCO3 (21-25) mmol/L ABG Total CO2 (19-24) mmol/L Potassium (3.5-5.1) mmol/L BUN (7-17) mg/dL Creatinine (0.52-1.04) mg/dL Glucose (74-99) mg/dL POC Glucose (mg/dL) 136 H 172 H (75-99) mg/dL Calcium (8.4-10.2) mg/dL Phosphorus (2.5-4.5) mg/dL Magnesium (1.6-2.3) mg/dL Alkaline Phosphatase (38-126) U/L Lactate Dehydrogenase (313-618) U/L C-Reactive Protein (<1.0) mg/dL Total Protein (6.3-8.2) g/dL Albumin (3.5-5.0) g/dL 10/08/21 10/08/21 10/08/21 Range/Units 03:25 05:01 05:24 WBC (3.8-10.6) k/uL RBC (3.80-5.40) m/uL Hgb (11.4-16.0) gm/dL Hct (34.0-46.0) % Neutrophils # (1.3-7.7) k/uL Lymphocytes # (1.0-4.8) k/uL ABG pO2 77 L (83-108) mmHg ABG HCO3 30 H (21-25) mmol/L ABG Total CO2 31 H (19-24) mmol/L Potassium 3.0 L (3.5-5.1) mmol/L BUN 90 H (7-17) mg/dL Creatinine 2.63 H (0.52-1.04) mg/dL Glucose 158 H (74-99) mg/dL POC Glucose (mg/dL) 158 H (75-99) mg/dL Calcium 6.4 L* (8.4-10.2) mg/dL Phosphorus 5.4 H (2.5-4.5) mg/dL Magnesium 2.4 H (1.6-2.3) mg/dL Alkaline Phosphatase 241 H (38-126) U/L Lactate Dehydrogenase 1024 H (313-618) U/L C-Reactive Protein 7.3 H (<1.0) mg/dL Total Protein 3.0 L (6.3-8.2) g/dL Albumin 1.6 L (3.5-5.0) g/dL 10/08/21 10/08/21 Range/Units 11:40 11:51 WBC (3.8-10.6) k/uL RBC (3.80-5.40) m/uL Hgb (11.4-16.0) gm/dL Hct (34.0-46.0) % Neutrophils # (1.3-7.7) k/uL Lymphocytes # (1.0-4.8) k/uL ABG pO2 (83-108) mmHg ABG HCO3 (21-25) mmol/L ABG Total CO2 (19-24) mmol/L Potassium (3.5-5.1) mmol/L BUN (7-17) mg/dL Creatinine (0.52-1.04) mg/dL Glucose (74-99) mg/dL POC Glucose (mg/dL) 213 H 196 H (75-99) mg/dL Calcium (8.4-10.2) mg/dL Phosphorus (2.5-4.5) mg/dL Magnesium (1.6-2.3) mg/dL Alkaline Phosphatase (38-126) U/L Lactate Dehydrogenase (313-618) U/L C-Reactive Protein (<1.0) mg/dL Total Protein (6.3-8.2) g/dL Albumin (3.5-5.0) g/dL Microbiology - Last 24 Hours (Table) 10/02/21 10:51 Blood Culture - Final Blood No Growth after 144 hours 10/02/21 10:30 Blood Culture - Final Blood No Growth after 144 hours
--- NOTE | 2021-10-08 13:53 | P.PN ---
Subjective Progress Note Date: 10/08/21 Principal diagnosis: Acute pneumoperitoneum secondary to acute sigmoid colon perforation status post colectomy and diverting colostomy postoperative day #7 10/05 2021, the patient is postop day #4. Remains on a mechanical ventilator. He remains sedated with propofol and the patient is currently on 15 mcg/kg per minute. She is adequately sedated for now. She remains on a mechanical ventilator on assist control mode at the rate of 26, tidal volume of 300, FiO2 of 40% with a PEEP of 5. The blood gas from today shows a father respiratory alkalosis and metabolic alkalosis. PH is at 7.54 with a pCO2 of 37 and pO2 of 80. Chest x-ray showing some atelectatic changes and small effusion the lung bases bilaterally. ET tube is in a good location. There is some mild increase in interstitial markings. Note that the patient is a case of Coumadin nightly related pneumonia also. Hemodynamically, the patient is doing better. She has been weaned off on norepinephrine which is currently running at 0.02 microvascular kilogram per minute and vasopressin remains on a physiologic dose. Her renal function continues to improve in the creatinine is down to 2.7. The patient was also having issues with hypocalcemia. She required calcium placement and her serum calcium total currently is up to 6.3. Ionized calcium is pending for now. Her serum albumin was down to 1.6. Her colostomy was functional and she was started on enteral feeding for nutritional support and she is currently on Nepro at the rate of 23 mL an hour. Another concern is her thrombocytopenia as the patient developed consumptive thrombocytopenia. She is currently on anticoagulation with Eliquis. No bleeding. I am concerned about the potential of bleeding this patient I'm recommending discontinuation of the Eliquis for now. We'll continue the combination of Zosyn and Flagyl as broad-spectrum antibiotic coverage. Cultures of been all negative. Bowel sounds are still hypoactive. The patient will need obviously a sedation holiday today and her candidacy for further weaning will be assessed. 10/06 2021, the patient is still on a mechanical ventilator. The patient is postop day #5. This morning, the patient is off sedation. Once off propofol, the patient's blood pressures improved and the patient is also off pressors. Meanwhile, she is still quite sedated. She is not showing adequate neurological recovery or alertness at this point in time and her mental status is being monitored. She remains on a mechanical ventilator. She had an assist-control at the rate of 26, tidal volume of 300, FiO2 of 40% with a PEEP of 5. The blood gases from today shows a pH of 7.52 with a pCO2 of 41 and pO2 of 66. Chest x- ray shows small bilateral pleural effusions. ET tube is in a good location. There is improved aeration bilaterally. Meanwhile, as mentioned, the patient is off pressors. Platelet counts have improved up to 5072. The white cell count is at 28 with a hemoglobin 11.9.5. Renal function shows a creatinine of 2.6 which is stable. BUN is at 61. Sodium is at 138. The patient remains on examination Zosyn and Flagyl. IV fluids are running at the rate of 20 mL an h our. The patient is off pressors. The patient is on stress dose hydrocortisone regarding her chronic steroid use. In terms of feeding, the patient was started on Nepro which is running at the rate of 23 mL an hour. The patient is producing stool at this point in time. Her cardiac rhythm is still in atrial fibrillation. The rate is controlled. We have stopped anticoagulation due to concern of underlying thrombocytopenia. Her thrombocytopenia was essentially consumptive related to sepsis. Patient was reevaluated today on 10/07/2021, remains in the ICU, intubated and mechanically ventilated, patient is on assist control rate of 16, volume 300 FiO2 40% and PEEP of 5. ABG showed a pO2 of 56, pCO2 33, pH of 7.59. Patient is off sedation now for the last 2 days, and does not seem to be making any neurological improvement, she is hemodynamically stable, she is in atrial fibrillation with a rate of 1:15, she is on Lovenox, the dose was increased to 30 mg subcu twice a day. Patient seems to be hypercapnic, and instead of using propofol, I'm recommending Precedex, and will be titrated accordingly. I'm also recommending a brain CT today and a neurological consultation. Lovenox was increased to twice a day dosing mostly because of her ongoing atrial fibrillation. And she does have renal failure. Ventilator mcdowell, I recommended that we stay on the same vent settings, I did increase the flow to 60 L/m. See count is 26.2 hemoglobin is 9.4. Basic metabolic profile is normal however her BUN is 83 creatinine 2.16, patient is being followed by nephrology. Asked x-ray showed mostly bibasilar airspace disease, patient did test positive for COVID-19 infection however her chest x-ray is not basically typical of COVID-19 pneumonia, and the patient is not requiring significant FiO2 and significant PEEP at this point. Reevaluated today on 10/08/2021, remains in the ICU, intubated and mechanically ventilated. Patient is on assist control rate of 16, volume 300 FiO2 50% and PEEP of 5. ABG showed a pO2 of 77 pCO2 45 pH of 7.43. Patient is only on Precedex for sedation and to keep the patient synchronous with mechanical ventilation without affecting her mental status. She is requiring norepinephrine at 0.1 mcg/kg/m, and she is on antibiotics empirically. Patient is receiving Nepro at 31 mL per hour. Labs showed low potassium of 3.0, being corrected by protocol. Her renal profile is a bit worse with a BUN of 90 creatinine 2.63. LDH is 102 for C-reactive protein is 7.3. WBC count is elevated 30.7 hemoglobin is 8.9 and hematocrit 28.6. Patient is in atrial f ibrillation with controlled rate, she is on Eliquis, antibiotics mcdowell she is on Zosyn and Flagyl for her abdominal sepsis. Neurologically, the patient remains unresponsive to any stimuli, she grimaces with deep painful stimuli, otherwise no responses are noted. Neurology has been consulted on this patient. Objective - Vital Signs Vital signs: Vital Signs Temp 97.5 F L 10/08/21 12:00 Pulse 120 H 10/08/21 13:00 Resp 25 H 10/08/21 13:00 BP 106/70 10/08/21 13:00 Pulse Ox 95 10/08/21 13:00 Intake & Output 10/07/21 10/08/21 10/08/21 18:59 06:59 18:59 Intake Total 1095.171 797.106 333.091 Output Total 925 690 450 Balance 170.171 107.106 -116.909 Weight 64.5 kg 70 kg Intake: IV 346 333 215 Piperacillin-Tazobactam 3 100 100 100 .375 gm In Sodium Chloride 0.9% 100 ml @ 25 mls/hr IVPB Q12H [facility] Rx# :[id number] Pressure Bag 36 33 15 Sodium Chloride 0.9% 1, 10 000 ml @ 10 mls/hr IV . Q24H [facility] Rx#:[id number] metroNIDAZOLE-NS PMX 500 200 200 100 mg In Saline 1 100ml.bag @ 100 mls/hr IVPB Q6H [facility] Rx#:[id number] Intake, IV Titration 145.171 78.106 56.091 Amount Dexmedetomidine/0.9% NaCl 20.369 57.297 (Pmx) 400 mcg In Empty Bag 1 bag @ 0.2 MCG/KG/HR 3.225 mls/hr IV .Q24H [facility] Rx#:[id number] Norepinephrine 32 mg In 4.802 10.809 16.091 Sodium Chloride 0.9% 218 ml @ 0.05 MCG/KG/MIN 1. 329 mls/hr IV .Q24H [facility] Rx#:[id number] Sodium Chloride 0.9% 1, 120 10 40 000 ml @ 10 mls/hr IV . Q24H [facility] Rx#:[id number] Tube Feeding 394 186 62 Other 210 200 Output: Urine 425 340 350 Stool 500 350 100 Other: Voiding Method Indwelling Catheter Indwelling Catheter Indwelling Catheter ABP, PAP, CO, CI - Last Documented Arterial Blood Pressure 99/60 - Exam Gen: This is an 81-year-old female, intubated and mechanically ventilated. Head: Atraumatic, normocephalic. HEENT: PERRLA, EOMI, nonicteric, no neck masses, no JVD. Endotracheal tube is intact. Orogastric tube is intact. NECK: Supple. No JVD. No lymphadenopathy. No thyromegaly. Cardiac: Irregular irregular rhythm, no S3 gallop. 2/6 systolic murmur throughout the precordium. LUNGS: Symmetrical chest expansion crackles at the bases. Abdomen: Colostomy bag is intact, seems to be functional. Fully catheter is draining meir urine. EXTREMITIES: 1+ bipedal edema, good pulses bilaterally. NEUROLOGICAL: Patient is intubated, grimaces to deep painful stimuli. Psychiatric: Unresponsive to stimuli. Grimaces only to deep painful stimuli. - Labs CBC & Chem 7: 10/08/21 03:25 10/08/21 03:25 Labs: Abnormal Lab Results - Last 24 Hours (Table) 10/07/21 10/08/21 10/08/21 Range/Units 18:12 00:29 03:25 WBC 30.7 H (3.8-10.6) k/uL RBC 2.96 L (3.80-5.40) m/uL Hgb 8.9 L (11.4-16.0) gm/dL Hct 28.6 L (34.0-46.0) % Neutrophils # 28.6 H (1.3-7.7) k/uL Lymphocytes # 0.6 L (1.0-4.8) k/uL ABG pO2 (83-108) mmHg ABG HCO3 (21-25) mmol/L ABG Total CO2 (19-24) mmol/L Potassium (3.5-5.1) mmol/L BUN (7-17) mg/dL Creatinine (0.52-1.04) mg/dL Glucose (74-99) mg/dL POC Glucose (mg/dL) 136 H 172 H (75-99) mg/dL Calcium (8.4-10.2) mg/dL Phosphorus (2.5-4.5) mg/dL Magnesium (1.6-2.3) mg/dL Alkaline Phosphatase (38-126) U/L Lactate Dehydrogenase (313-618) U/L C-Reactive Protein (<1.0) mg/dL Total Protein (6.3-8.2) g/dL Albumin (3.5-5.0) g/dL 10/08/21 10/08/21 10/08/21 Range/Units 03:25 05:01 05:24 WBC (3.8-10.6) k/uL RBC (3.80-5.40) m/uL Hgb (11.4-16.0) gm/dL Hct (34.0-46.0) % Neutrophils # (1.3-7.7) k/uL Lymphocytes # (1.0-4.8) k/uL ABG pO2 77 L (83-108) mmHg ABG HCO3 30 H (21-25) mmol/L ABG Total CO2 31 H (19-24) mmol/L Potassium 3.0 L (3.5-5.1) mmol/L BUN 90 H (7-17) mg/dL Creatinine 2.63 H (0.52-1.04) mg/dL Glucose 158 H (74-99) mg/dL POC Glucose (mg/dL) 158 H (75-99) mg/dL Calcium 6.4 L* (8.4-10.2) mg/dL Phosphorus 5.4 H (2.5-4.5) mg/dL Magnesium 2.4 H (1.6-2.3) mg/dL Alkaline Phosphatase 241 H (38-126) U/L Lactate Dehydrogenase 1024 H (313-618) U/L C-Reactive Protein 7.3 H (<1.0) mg/dL Total Protein 3.0 L (6.3-8.2) g/dL Albumin 1.6 L (3.5-5.0) g/dL 10/08/21 10/08/21 Range/Units 11:40 11:51 WBC (3.8-10.6) k/uL RBC (3.80-5.40) m/uL Hgb (11.4-16.0) gm/dL Hct (34.0-46.0) % Neutrophils # (1.3-7.7) k/uL Lymphocytes # (1.0-4.8) k/uL ABG pO2 (83-108) mmHg ABG HCO3 (21-25) mmol/L ABG Total CO2 (19-24) mmol/L Potassium (3.5-5.1) mmol/L BUN (7-17) mg/dL Creatinine (0.52-1.04) mg/dL Glucose (74-99) mg/dL POC Glucose (mg/dL) 213 H 196 H (75-99) mg/dL Calcium (8.4-10.2) mg/dL Phosphorus (2.5-4.5) mg/dL Magnesium (1.6-2.3) mg/dL Alkaline Phosphatase (38-126) U/L Lactate Dehydrogenase (313-618) U/L C-Reactive Protein (<1.0) mg/dL Total Protein (6.3-8.2) g/dL Albumin (3.5-5.0) g/dL Microbiology - Last 24 Hours (Table) 10/02/21 10:51 Blood Culture - Final Blood No Growth after 144 hours 10/02/21 10:30 Blood Culture - Final Blood No Growth after 144 hours Assessment and Plan Assessment: Impression: Acute hypoxic respiratory failure, multifactorial. Acute pneumoperitoneum and abdominal sepsis with perforation of sigmoid. Requiring surgery, colostomy, postoperative day #7 Septic shock due to abdominal sepsis Acute COVID-19 pneumonia is strongly suspected. History of kidney transplantation, on immunosuppressive therapy, patient is normally on CellCept prednisone and cyclosporine Chronic kidney disease stage III Chronic atrial fibrillation, on anticoagulation therapy COVID-19 infection possible pneumonia, vaccination status is unknown Osteoporosis History of breast cancer/lobular carcinoma in situ requiring surgery only Thrombocytopenia secondary to sepsis. Suspect acute metabolic encephalopathy and change in mental status. Recommendation: Continue ventilatory support No plans to wean at present specially with her mental status as it is. Continue antibiotics/Zosyn and Flagyl Continue stress doses of hydrocortisone. Continue Lovenox. Increase dose to 30 mg subcu twice a day, may restart patient on Eliquis if agreeable by surgery. Continue to monitor daily electrolytes and labs. Continue antibiotics. Continue patient off immunosuppression Continue vitamin D Continue GI prophylaxis/Protonix Continue to hold sedation and assessment and status on a daily basis. Continue to use Precedex instead. Neurological consultation CT of the brain without contrast.Showed mostly cerebral atrophy and chronic small vessel ischemia in no acute intracranial process Patient is critically ill, critical care time is over 30 minutes. Time with Patient: Greater than 30
--- NOTE | 2021-10-08 13:57 | P.PN ---
Subjective Progress Note Date: 10/08/21 CHIEF COMPLAINT: Abdominal pain HISTORY OF PRESENT ILLNESS: Patient is postop day #7 exploratory laparotomy, sigmoid colectomy with colostomy and right oophorectomy for perforated sigmoid colon. Patient is currently the ICU and intubated. She is on Precedex. FiO2 50, PEEP of 5. She is on a small dose of Levophed. Patient remains unresponsive. Patient followed by neurology for her metabolic encephalopathy. EEG shows moderate to severe encephalopathy. Computed tomography scan of the brain showed no acute intracranial abnormality. Cerebral atrophy and chronic small vessel ischemia. Patient is undergoing a 2.5 hour EEG. Afebrile. Tachycardic WBC 30.7 hemoglobin 8.9 platelets 178 sodium 143 potassium 3.0 creatinine 2.63 Patient seen and examined with Dr. garcia PHYSICAL EXAM: VITAL SIGNS: Reviewed. GENERAL: Well-developed in no acute distress. HEENT: No sclera icterus. Extraocular movements grossly intact. Moist buccal mucosa. Head is atraumatic, normocephalic. ABDOMEN: Soft. Nondistended. Dressing clean dry and intact. Stool present in ostomy NEUROLOGIC: Intubated unresponsive ASSESSMENT: 1. Perforated sigmoid colon status post exploratory laparotomy, sigmoid co lectomy with colostomy and right oophorectomy 2. Acute hypoxic respiratory failure currently intubated and on mechanical ventilation 3. Septic shock due to perforated sigmoid colon 4. History of A. fib and TIA 5. COVID-19 positive, incidental finding 6. History of kidney transplant. Nephrology following 7. Acute kidney injury on chronic kidney disease 8. Thrombocytopenia 9. Metabolic Encephalopathy PLAN: -Okay to resume patient's Eliquis from surgical standpoint -Continue ICU management -Continue supportive care -Continue antibiotics -Receiving tube feedings through OG-tube for nutrition support -Potassium being replaced -DVT prophylaxis lovenox and GI prophylaxis Protonix Physician [employer] Installer note has been reviewed by physician. Signing provider agrees with the documented findings, assessment, and plan of care. Objective - Vital Signs Vital signs: Vital Signs Temp 97.5 F L 10/08/21 12:00 Pulse 120 H 10/08/21 13:00 Resp 25 H 10/08/21 13:00 BP 106/70 10/08/21 13:00 Pulse Ox 95 10/08/21 13:00 Intake & Output 10/07/21 10/08/21 10/08/21 18:59 06:59 18:59 Intake Total 1095.171 797.106 333.091 Output Total 925 690 450 Balance 170.171 107.106 -116.909 Weight 64.5 kg 70 kg Intake: IV 346 333 215 Piperacillin-Tazobactam 3 100 100 100 .375 gm In Sodium Chloride 0.9% 100 ml @ 25 mls/hr IVPB Q12H [facility] Rx# :[id number] Pressure Bag 36 33 15 Sodium Chloride 0.9% 1, 10 000 ml @ 10 mls/hr IV . Q24H [facility] Rx#:[id number] metroNIDAZOLE-NS PMX 500 200 200 100 mg In Saline 1 100ml.bag @ 100 mls/hr IVPB Q6H [facility] Rx#:[id number] Intake, IV Titration 145.171 78.106 56.091 Amount Dexmedetomidine/0.9% NaCl 20.369 57.297 (Pmx) 400 mcg In Empty Bag 1 bag @ 0.2 MCG/KG/HR 3.225 mls/hr IV .Q24H [facility] Rx#:[id number] Norepinephrine 32 mg In 4.802 10.809 16.091 Sodium Chloride 0.9% 218 ml @ 0.05 MCG/KG/MIN 1. 329 mls/hr IV .Q24H [facility] Rx#:[id number] Sodium Chloride 0.9% 1, 120 10 40 000 ml @ 10 mls/hr IV . Q24H [facility] Rx#:[id number] Tube Feeding 394 186 62 Other 210 200 Output: Urine 425 340 350 Stool 500 350 100 Other: Voiding Method Indwelling Catheter Indwelling Catheter Indwelling Catheter ABP, PAP, CO, CI - Last Documented Arterial Blood Pressure 99/60 - Labs CBC & Chem 7: 10/08/21 03:25 10/08/21 03:25 Labs: Abnormal Lab Results - Last 24 Hours (Table) 10/07/21 10/08/21 10/08/21 Range/Units 18:12 00:29 03:25 WBC 30.7 H (3.8-10.6) k/uL RBC 2.96 L (3.80-5.40) m/uL Hgb 8.9 L (11.4-16.0) gm/dL Hct 28.6 L (34.0-46.0) % Neutrophils # 28.6 H (1.3-7.7) k/uL Lymphocytes # 0.6 L (1.0-4.8) k/uL ABG pO2 (83-108) mmHg ABG HCO3 (21-25) mmol/L ABG Total CO2 (19-24) mmol/L Potassium (3.5-5.1) mmol/L BUN (7-17) mg/dL Creatinine (0.52-1.04) mg/dL Glucose (74-99) mg/dL POC Glucose (mg/dL) 136 H 172 H (75-99) mg/dL Calcium (8.4-10.2) mg/dL Phosphorus (2.5-4.5) mg/dL Magnesium (1.6-2.3) mg/dL Alkaline Phosphatase (38-126) U/L Lactate Dehydrogenase (313-618) U/L C-Reactive Protein (<1.0) mg/dL Total Protein (6.3-8.2) g/dL Albumin (3.5-5.0) g/dL 10/08/21 10/08/21 10/08/21 Range/Units 03:25 05:01 05:24 WBC (3.8-10.6) k/uL RBC (3.80-5.40) m/uL Hgb (11.4-16.0) gm/dL Hct (34.0-46.0) % Neutrophils # (1.3-7.7) k/uL Lymphocytes # (1.0-4.8) k/uL ABG pO2 77 L (83-108) mmHg ABG HCO3 30 H (21-25) mmol/L ABG Total CO2 31 H (19-24) mmol/L Potassium 3.0 L (3.5-5.1) mmol/L BUN 90 H (7-17) mg/dL Creatinine 2.63 H (0.52-1.04) mg/dL Glucose 158 H (74-99) mg/dL POC Glucose (mg/dL) 158 H (75-99) mg/dL Calcium 6.4 L* (8.4-10.2) mg/dL Phosphorus 5.4 H (2.5-4.5) mg/dL Magnesium 2.4 H (1.6-2.3) mg/dL Alkaline Phosphatase 241 H (38-126) U/L Lactate Dehydrogenase 1024 H (313-618) U/L C-Reactive Protein 7.3 H (<1.0) mg/dL Total Protein 3.0 L (6.3-8.2) g/dL Albumin 1.6 L (3.5-5.0) g/dL 10/08/21 10/08/21 Range/Units 11:40 11:51 WBC (3.8-10.6) k/uL RBC (3.80-5.40) m/uL Hgb (11.4-16.0) gm/dL Hct (34.0-46.0) % Neutrophils # (1.3-7.7) k/uL Lymphocytes # (1.0-4.8) k/uL ABG pO2 (83-108) mmHg ABG HCO3 (21-25) mmol/L ABG Total CO2 (19-24) mmol/L Potassium (3.5-5.1) mmol/L BUN (7-17) mg/dL Creatinine (0.52-1.04) mg/dL Glucose (74-99) mg/dL POC Glucose (mg/dL) 213 H 196 H (75-99) mg/dL Calcium (8.4-10.2) mg/dL Phosphorus (2.5-4.5) mg/dL Magnesium (1.6-2.3) mg/dL Alkaline Phosphatase (38-126) U/L Lactate Dehydrogenase (313-618) U/L C-Reactive Protein (<1.0) mg/dL Total Protein (6.3-8.2) g/dL Albumin (3.5-5.0) g/dL Microbiology - Last 24 Hours (Table) 10/02/21 10:51 Blood Culture - Final Blood No Growth after 144 hours 10/02/21 10:30 Blood Culture - Final Blood No Growth after 144 hours
[2021-10-08] MEDS: SODIUM CHLORIDE 0.9% 1,000 ML IV SCH (15:10)
[2021-10-08] MEDS ORDERED: METOPROLOL TARTRATE 25 MG TAB PO STA (15:16)
--- NOTE | 2021-10-08 16:36 | EEG ---
ELECTROENCEPHALOGRAM REPORT PROCEDURE DATE: 10/08/2021. ELECTROENCEPHALOGRAM (EEG) REPORT: TECHNIQUE: This is a report from a prolonged 2.5 hour inpatient digital EEG performed using the 10/20 electrode placement system. HISTORY: Abdominal pain, status post surgery, septic shock. CURRENT MEDICATIONS: Diamox, Precedex, Lovenox, Dilaudid, insulin, Protonix, potassium, Pipracil. FINDINGS: Recording start time: 10/08/2021 at 11:47 am. Recording end time: 10/08/2021 at 2:23 pm. EVENTS: During this prolonged 2.5 hour inpatient digital EEG, no clinical or electrographic seizures were recorded. BACKGROUND: A sustained posterior dominant rhythm was not seen. The patient was essentially in stage I or stage II sleep for the entire recording, stage II sleep was primarily noted after the patient was given Ativan 1 mg approximately 22 minutes into the recording. During the rare periods of relatively maximal arousal, background frequencies were seen in the unsustained 4-5 hertz range. ACTIVATION: Hyperventilation: Not performed. Photic stimulation: Not performed. Sleep: Stages I and II sleep noted. ABNORMALITIES: During the rare periods of maximal arousal over the more anterior quadrants, diffuse 3- 5 hertz slow wave activity was seen. Please note that on 08/08/2022 at 12:07:13, a 12 second run of triphasic waves was seen. IMPRESSION: Abnormal 2.5 hours EEG. No clinical or electrographic seizures were reported. No epileptiform activity was present. This was predominantly a sleep EEG. During the rare periods of relatively maximal arousal, diffuse theta range slowing was seen which was not epileptiform in nature. These findings indicate moderate diffuse cerebral dysfunction which may in part be due to medication effect. No seizures were recorded. No epileptiform activity was present. MMODL / IJN: [id number] /
[2021-10-08] MEDS ORDERED: LACOSAMIDE IV 100 MG in SODIUM CHLORIDE 0.9% 50 ML IVPB STA (17:19)
[2021-10-08 17:40] LABS: Glucose,Whole Blood 196 mg/dL (75-99)
[2021-10-08] MEDS: LACOSAMIDE IV 50 MG in SODIUM CHLORIDE 0.9% 50 ML IVPB SCH (22:21)
[2021-10-08] MEDS: METOPROLOL TARTRATE 50 MG TAB PO SCH (22:21)
--- NOTE | 2021-10-08 22:51 | P.PN ---
Subjective Progress Note Date: 10/07/21 Principal diagnosis: Secondary peritonitis from perforated diverticulitis and covid 19 infection Patient is an 81-year-old female who presented to the hospital with abdominal pain. This patient noticed to have perforated sigmoid diverticulitis status post laparotomy, sigmoid colectomy and diverting colostomy. Also had positive COVID test. On today's evaluation, that is 10/07/2021, the patient remains to be afebrile. The patient is hemodynamically stable not requiring pressor support. FiO2 is currently 40%. No significant purulent secretions through the ET, diarrhea reported by the nursing staff. Objective - Vital Signs Vital signs: Vital Signs Temp 98 F 10/07/21 12:00 Pulse 120 H 10/07/21 15:00 Resp 32 H 10/07/21 15:00 BP 95/69 10/07/21 15:00 Pulse Ox 94 L 10/07/21 14:00 Intake & Output 10/06/21 10/07/21 10/07/21 18:59 06:59 18:59 Intake Total 558 524 929.255 Output Total 615 415 305 Balance -57 109 624.255 Weight 64.5 kg Intake: IV 169 342 337 Piperacillin-Tazobactam 3 25 100 .375 gm In Sodium Chloride 0.9% 100 ml @ 25 mls/hr IVPB Q12H [facility] Rx# :[id number] Pressure Bag 39 27 27 Sodium Chloride 0.9% 1, 130 90 10 000 ml @ 10 mls/hr IV . Q24H [facility] Rx#:[id number] metroNIDAZOLE-NS PMX 500 200 200 mg In Saline 1 100ml.bag @ 100 mls/hr IVPB Q6H [facility] Rx#:[id number] Intake, IV Titration 111.255 Amount Dexmedetomidine/0.9% NaCl 20.369 (Pmx) 400 mcg In Empty Bag 1 bag @ 0.2 MCG/KG/HR 3.225 mls/hr IV .Q24H [facility] Rx#:[id number] Norepinephrine 32 mg In 0.886 Sodium Chloride 0.9% 218 ml @ 0.05 MCG/KG/MIN 1. 329 mls/hr IV .Q24H [facility] Rx#:[id number] Sodium Chloride 0.9% 1, 90 000 ml @ 10 mls/hr IV . Q24H [facility] Rx#:[id number] Tube Feeding 299 92 301 Other 90 90 180 Output: Urine 615 415 305 Other: Voiding Method Indwelling Catheter Indwelling Catheter Indwelling Catheter ABP, PAP, CO, CI - Last Documented Arterial Blood Pressure 93/61 - Exam General description is an elderly female intubated on the vent. Respiratory system: Unlabored breathing, decreased intensity in breath sounds. No wheeze. Heart S1, S2. Regular rate and rhythm. Abdomen soft, no tenderness. - Labs CBC & Chem 7: 10/08/21 03:25 10/08/21 15:49 Labs: Abnormal Lab Results - Last 24 Hours (Table) 10/06/21 10/07/21 10/07/21 Range/Units 17:20 00:54 06:03 WBC (3.8-10.6) k/uL RBC (3.80-5.40) m/uL Hgb (11.4-16.0) gm/dL Hct (34.0-46.0) % Plt Count (150-450) k/uL Neutrophils # (1.3-7.7) k/uL Lymphocytes # (1.0-4.8) k/uL ABG pH 7.59 H* (7.35-7.45) ABG pCO2 33 L (35-45) mmHg ABG pO2 56 L* (83-108) mmHg ABG HCO3 32 H (21-25) mmol/L ABG Total CO2 33 H (19-24) mmol/L ABG O2 Saturation 91.7 L (94-97) % Potassium (3.5-5.1) mmol/L BUN (7-17) mg/dL Creatinine (0.52-1.04) mg/dL Glucose (74-99) mg/dL POC Glucose (mg/dL) 143 H 150 H (75-99) mg/dL Calcium (8.4-10.2) mg/dL Alkaline Phosphatase (38-126) U/L Total Protein (6.3-8.2) g/dL Albumin (3.5-5.0) g/dL 10/07/21 10/07/21 10/07/21 Range/Units 07:50 09:20 09:20 WBC 26.2 H (3.8-10.6) k/uL RBC 3.23 L (3.80-5.40) m/uL Hgb 9.4 L (11.4-16.0) gm/dL Hct 30.0 L (34.0-46.0) % Plt Count 126 L D (150-450) k/uL Neutrophils # 23.9 H (1.3-7.7) k/uL Lymphocytes # 0.9 L (1.0-4.8) k/uL ABG pH (7.35-7.45) ABG pCO2 (35-45) mmHg ABG pO2 (83-108) mmHg ABG HCO3 (21-25) mmol/L ABG Total CO2 (19-24) mmol/L ABG O2 Saturation (94-97) % Potassium 3.2 L (3.5-5.1) mmol/L BUN 83 H (7-17) mg/dL Creatinine 2.16 H (0.52-1.04) mg/dL Glucose 123 H (74-99) mg/dL POC Glucose (mg/dL) 138 H (75-99) mg/dL Calcium 6.4 L* (8.4-10.2) mg/dL Alkaline Phosphatase 221 H (38-126) U/L Total Protein 3.3 L (6.3-8.2) g/dL Albumin 1.7 L (3.5-5.0) g/dL 10/07/21 Range/Units 11:25 WBC (3.8-10.6) k/uL RBC (3.80-5.40) m/uL Hgb (11.4-16.0) gm/dL Hct (34.0-46.0) % Plt Count (150-450) k/uL Neutrophils # (1.3-7.7) k/uL Lymphocytes # (1.0-4.8) k/uL ABG pH (7.35-7.45) ABG pCO2 (35-45) mmHg ABG pO2 (83-108) mmHg ABG HCO3 (21-25) mmol/L ABG Total CO2 (19-24) mmol/L ABG O2 Saturation (94-97) % Potassium (3.5-5.1) mmol/L BUN (7-17) mg/dL Creatinine (0.52-1.04) mg/dL Glucose (74-99) mg/dL POC Glucose (mg/dL) 132 H (75-99) mg/dL Calcium (8.4-10.2) mg/dL Alkaline Phosphatase (38-126) U/L Total Protein (6.3-8.2) g/dL Albumin (3.5-5.0) g/dL Microbiology - Last 24 Hours (Table) 10/02/21 10:51 Blood Culture - Preliminary Blood No Growth after 120 hours 10/02/21 10:30 Blood Culture - Preliminary Blood No Growth after 120 hours Assessment and Plan Plan: 1. Patient with acute respiratory failure, multifactorial in this patient who has perforated sigmoid diverticulitis status post diverting colostomy. The patient is covered with Zosyn which will be continued for now 2. Elevated white count more likely related to the steroids as the patient high dose hydrocortisone. No evidence of any worsening infection. Clinical course will monitored closely. Time with Patient: Less than 30
--- NOTE | 2021-10-08 22:54 | P.PN ---
Subjective Progress Note Date: 10/08/21 Principal diagnosis: Secondary peritonitis from perforated diverticulitis and covid 19 infection Patient is an 81-year-old female who presented to the hospital with abdominal pain. This patient noticed to have perforated sigmoid diverticulitis status post laparotomy, sigmoid colectomy and diverting colostomy. Also had positive COVID test. On today's evaluation, that is 10/08/2021, the patient continues to be afebrile. The patient is hemodynamically stable not requiring pressor support. FiO2 is up to 50 % however no significant purulent secretions through the ET has been to prevent nursing staff and no diarrhea Objective - Vital Signs Vital signs: Vital Signs Temp 97.8 F 10/08/21 16:00 Pulse 118 H 10/08/21 19:00 Resp 28 H 10/08/21 19:00 BP 91/51 10/08/21 19:00 Pulse Ox 95 10/08/21 19:00 Intake & Output 10/08/21 10/08/21 10/09/21 06:59 18:59 06:59 Intake Total 797.106 716.728 Output Total 690 1055 Balance 107.106 -338.272 Weight 70 kg Intake: IV 333 339 Piperacillin-Tazobactam 3 100 100 .375 gm In Sodium Chloride 0.9% 100 ml @ 25 mls/hr IVPB Q12H [facility] Rx# :[id number] Pressure Bag 33 39 metroNIDAZOLE-NS PMX 500 200 200 mg In Saline 1 100ml.bag @ 100 mls/hr IVPB Q6H [facility] Rx#:[id number] Intake, IV Titration 78.106 284.728 Amount Dexmedetomidine/0.9% NaCl 57.297 95.568 (Pmx) 400 mcg In Empty Bag 1 bag @ 0.2 MCG/KG/HR 3.225 mls/hr IV .Q24H [facility] Rx#:[id number] Lacosamide IV 100 mg In 50 Sodium Chloride 0.9% 50 ml @ 100 mls/hr IVPB ONCE [facility] Rx#:[id number] Norepinephrine 32 mg In 10.809 29.160 Sodium Chloride 0.9% 218 ml @ 0.05 MCG/KG/MIN 1. 329 mls/hr IV .Q24H [facility] Rx#:[id number] Sodium Chloride 0.9% 1, 10 110 000 ml @ 10 mls/hr IV . Q24H [facility] Rx#:[id number] Tube Feeding 186 93 Other 200 Output: Urine 340 755 Stool 350 300 Other: Voiding Method Indwelling Catheter Indwelling Catheter ABP, PAP, CO, CI - Last Documented Arterial Blood Pressure 102/61 - Exam General description is an elderly female intubated on the vent. Respiratory system: Unlabored breathing, decreased intensity in breath sounds. No wheeze. Heart S1, S2. Regular rate and rhythm. Abdomen soft, no tenderness. - Labs CBC & Chem 7: 10/08/21 03:25 10/08/21 15:49 Labs: Abnormal Lab Results - Last 24 Hours (Table) 10/08/21 10/08/21 10/08/21 Range/Units 00:29 03:25 03:25 WBC 30.7 H (3.8-10.6) k/uL RBC 2.96 L (3.80-5.40) m/uL Hgb 8.9 L (11.4-16.0) gm/dL Hct 28.6 L (34.0-46.0) % Neutrophils # 28.6 H (1.3-7.7) k/uL Lymphocytes # 0.6 L (1.0-4.8) k/uL ABG pO2 (83-108) mmHg ABG HCO3 (21-25) mmol/L ABG Total CO2 (19-24) mmol/L Potassium 3.0 L (3.5-5.1) mmol/L BUN 90 H (7-17) mg/dL Creatinine 2.63 H (0.52-1.04) mg/dL Glucose 158 H (74-99) mg/dL POC Glucose (mg/dL) 172 H (75-99) mg/dL Calcium 6.4 L* (8.4-10.2) mg/dL Phosphorus 5.4 H (2.5-4.5) mg/dL Magnesium 2.4 H (1.6-2.3) mg/dL Alkaline Phosphatase 241 H (38-126) U/L Lactate Dehydrogenase 1024 H (313-618) U/L C-Reactive Protein 7.3 H (<1.0) mg/dL Total Protein 3.0 L (6.3-8.2) g/dL Albumin 1.6 L (3.5-5.0) g/dL 01/18/22 01/18/22 01/18/22 Range/Units 05:01 05:24 11:40 WBC (3.8-10.6) k/uL RBC (3.80-5.40) m/uL Hgb (11.4-16.0) gm/dL Hct (34.0-46.0) % Neutrophils # (1.3-7.7) k/uL Lymphocytes # (1.0-4.8) k/uL ABG pO2 77 L (83-108) mmHg ABG HCO3 30 H (21-25) mmol/L ABG Total CO2 31 H (19-24) mmol/L Potassium (3.5-5.1) mmol/L BUN (7-17) mg/dL Creatinine (0.52-1.04) mg/dL Glucose (74-99) mg/dL POC Glucose (mg/dL) 158 H 213 H (75-99) mg/dL Calcium (8.4-10.2) mg/dL Phosphorus (2.5-4.5) mg/dL Magnesium (1.6-2.3) mg/dL Alkaline Phosphatase (38-126) U/L Lactate Dehydrogenase (313-618) U/L C-Reactive Protein (<1.0) mg/dL Total Protein (6.3-8.2) g/dL Albumin (3.5-5.0) g/dL 10/08/21 10/08/21 10/08/21 Range/Units 11:51 15:49 17:39 WBC (3.8-10.6) k/uL RBC (3.80-5.40) m/uL Hgb (11.4-16.0) gm/dL Hct (34.0-46.0) % Neutrophils # (1.3-7.7) k/uL Lymphocytes # (1.0-4.8) k/uL ABG pO2 (83-108) mmHg ABG HCO3 (21-25) mmol/L ABG Total CO2 (19-24) mmol/L Potassium 3.1 L (3.5-5.1) mmol/L BUN (7-17) mg/dL Creatinine (0.52-1.04) mg/dL Glucose (74-99) mg/dL POC Glucose (mg/dL) 196 H 196 H (75-99) mg/dL Calcium (8.4-10.2) mg/dL Phosphorus (2.5-4.5) mg/dL Magnesium (1.6-2.3) mg/dL Alkaline Phosphatase (38-126) U/L Lactate Dehydrogenase (313-618) U/L C-Reactive Protein (<1.0) mg/dL Total Protein (6.3-8.2) g/dL Albumin (3.5-5.0) g/dL Microbiology - Last 24 Hours (Table) 10/02/21 10:51 Blood Culture - Final Blood No Growth after 144 hours 10/02/21 10:30 Blood Culture - Final Blood No Growth after 144 hours Assessment and Plan Plan: 1. Patient with acute respiratory failure, multifactorial in this patient who has perforated sigmoid diverticulitis status post diverting colostomy. The p atient to continue with empiric Zosyn. 2. Elevated white count more likely related to the steroids as the patient high dose hydrocortisone. We will add Diflucan we will recheck her CRP and procal citonin and blood cultures
[2021-10-08] MEDS ORDERED: ANIDULAFUNGIN 200 MG in SODIUM CHLORIDE 0.9% 200 ML IVPB ONE (23:15)
[2021-10-08 23:47] LABS: Glucose,Whole Blood 207 mg/dL (75-99)
[2021-10-09] MEDS: POTASSIUM BICARBONATE/CIT AC 20 MEQ TABLET.EFF NG-TUBE SCH ×8 (01:16→23:42)
[2021-10-09] MEDS: NOREPINEPHRINE 32 MG in SODIUM CHLORIDE 0.9% 218 ML IV SCH (03:15)
[2021-10-09] MEDS: DEXMEDETOMIDINE/0.9% NACL(PMX) 400 MCG in EMPTY BAG 1 BAG IV SCH (03:41)
[2021-10-09] MEDS: metroNIDAZOLE-NS PMX 500 MG in SALINE 1 100ML.BAG IVPB SCH ×4 (03:41→21:23)
[2021-10-09 04:28] LABS: HCT 31.1 % (34.0-46.0); HGB 9.6 gm/dL (11.4-16.0); Hypochromasia Marked; MCH 29.9 pg (25.0-35.0); MCHC 30.8 g/dL (31.0-37.0); MCV 97.1 fL (80.0-100.0); Mean Platelet Volume 13.7; Platelet Count 236 k/uL (150-450); RDW 15.2 % (11.5-15.5); WBC 28.5 k/uL (3.8-10.6)
[2021-10-09 04:48] LABS: Ionized Calcium 4.1 mg/dL (4.5-5.3)
[2021-10-09 04:54] LABS: Albumin 1.6 g/dL (3.5-5.0); Calcium 6.6 mg/dL (8.4-10.2); Potassium 3.4 mmol/L (3.5-5.1); Total Bilirubin 0.8 mg/dL (0.2-1.3); Total Protein 3.1 g/dL (6.3-8.2)
[2021-10-09 04:58] LABS: ABG HCO3 30 mmol/L (21-25); ABG Oxygen Saturation 97.2 % (94-97); ABG PCO2 40 mmHg (35-45); ABG PH 7.47 (7.35-7.45); ABG PO2 87 mmHg (83-108); ABG TCO2 31 mmol/L (19-24); Allen Test Performed? Yes
[2021-10-09 05:52] LABS: Glucose,Whole Blood 202 mg/dL (75-99)
[2021-10-09] MEDS: INSULIN ASPART (NovoLOG) 100 UNIT/ML VIAL SQ SCH ×4 (05:53→23:43)
[2021-10-09] MEDS ORDERED: CALCIUM GLUCONATE 1 GM in SODIUM CHLORIDE 0.9% 100 ML IVPB ONE (08:45)
--- NOTE | 2021-10-09 08:45 | P.PN ---
Subjective Patient is seen in follow-up for acute allograft dysfunction. Intubated. Receiving tube feeds. Off Levophed. Nonoliguric. Blood pressure stable. Vital signs are stable. General: Intubated. HEENT: Head exam is unremarkable. LUNGS: Breath sounds decreased. HEART: Tachycardic. ABDOMEN: No distention. EXTREMITITES: 1+ edema. Objective - Vital Signs Vital signs: Vital Signs Temp 97.3 F L 10/09/21 04:00 Pulse 105 H 10/09/21 07:00 Resp 32 H 10/09/21 07:00 BP 120/89 10/09/21 06:00 Pulse Ox 95 10/09/21 07:00 Intake & Output 10/08/21 10/09/21 10/09/21 18:59 06:59 18:59 Intake Total 716.728 933.020 54 Output Total 1055 1085 75 Balance -338.272 -151.980 -21 Weight 72 kg Intake: IV 339 453 23 0.9 220 20 Piperacillin-Tazobactam 3 100 100 .375 gm In Sodium Chloride 0.9% 100 ml @ 25 mls/hr IVPB Q12H [facility] Rx# :[id number] Pressure Bag 39 33 3 metroNIDAZOLE-NS PMX 500 200 100 mg In Saline 1 100ml.bag @ 100 mls/hr IVPB Q6H [facility] Rx#:[id number] Intake, IV Titration 284.728 110.020 Amount Dexmedetomidine/0.9% NaCl 95.568 80.84 (Pmx) 400 mcg In Empty Bag 1 bag @ 0.2 MCG/KG/HR 3.225 mls/hr IV .Q24H [facility] Rx#:[id number] Lacosamide IV 100 mg In 50 Sodium Chloride 0.9% 50 ml @ 100 mls/hr IVPB ONCE [facility] Rx#:[id number] Norepinephrine 32 mg In 29.160 29.180 Sodium Chloride 0.9% 218 ml @ 0.05 MCG/KG/MIN 1. 329 mls/hr IV .Q24H [facility] Rx#:[id number] Sodium Chloride 0.9% 1, 110 000 ml @ 10 mls/hr IV . Q24H [facility] Rx#:[id number] Tube Feeding 93 310 31 Other 60 Output: Urine 755 585 75 Stool 300 500 Other: Voiding Method Indwelling Catheter Indwelling Catheter ABP, PAP, CO, CI - Last Documented Arterial Blood Pressure 130/66 - Labs CBC & Chem 7: 10/09/21 04:00 10/09/21 04:00 Labs: Abnormal Lab Results - Last 24 Hours (Table) 10/08/21 10/08/21 10/08/21 Range/Units 11:40 11:51 15:49 WBC (3.8-10.6) k/uL RBC (3.80-5.40) m/uL Hgb (11.4-16.0) gm/dL Hct (34.0-46.0) % MCHC (31.0-37.0) g/dL ABG pH (7.35-7.45) ABG HCO3 (21-25) mmol/L ABG Total CO2 (19-24) mmol/L ABG O2 Saturation (94-97) % Potassium 3.1 L (3.5-5.1) mmol/L Chloride (98-107) mmol/L BUN (7-17) mg/dL Creatinine (0.52-1.04) mg/dL Glucose (74-99) mg/dL POC Glucose (mg/dL) 213 H 196 H (75-99) mg/dL Calcium (8.4-10.2) mg/dL Ionized Calcium Ashley (4.5-5.3) mg/dL Alkaline Phosphatase (38-126) U/L C-Reactive Protein (<1.0) mg/dL Total Protein (6.3-8.2) g/dL Albumin (3.5-5.0) g/dL 10/08/21 10/08/21 10/08/21 Range/Units 17:39 23:37 23:45 WBC (3.8-10.6) k/uL RBC (3.80-5.40) m/uL Hgb (11.4-16.0) gm/dL Hct (34.0-46.0) % MCHC (31.0-37.0) g/dL ABG pH (7.35-7.45) ABG HCO3 (21-25) mmol/L ABG Total CO2 (19-24) mmol/L ABG O2 Saturation (94-97) % Potassium 3.1 L (3.5-5.1) mmol/L Chloride (98-107) mmol/L BUN (7-17) mg/dL Creatinine (0.52-1.04) mg/dL Glucose (74-99) mg/dL POC Glucose (mg/dL) 196 H 207 H (75-99) mg/dL Calcium (8.4-10.2) mg/dL Ionized Calcium Ashley (4.5-5.3) mg/dL Alkaline Phosphatase (38-126) U/L C-Reactive Protein (<1.0) mg/dL Total Protein (6.3-8.2) g/dL Albumin (3.5-5.0) g/dL 10/09/21 10/09/21 10/09/21 Range/Units 04:00 04:00 04:00 WBC 28.5 H (3.8-10.6) k/uL RBC 3.20 L (3.80-5.40) m/uL Hgb 9.6 L (11.4-16.0) gm/dL Hct 31.1 L (34.0-46.0) % MCHC 30.8 L (31.0-37.0) g/dL ABG pH (7.35-7.45) ABG HCO3 (21-25) mmol/L ABG Total CO2 (19-24) mmol/L ABG O2 Saturation (94-97) % Potassium 3.4 L (3.5-5.1) mmol/L Chloride 108 H (98-107) mmol/L BUN 100 H (7-17) mg/dL Creatinine 2.46 H (0.52-1.04) mg/dL Glucose 193 H (74-99) mg/dL POC Glucose (mg/dL) (75-99) mg/dL Calcium 6.6 L (8.4-10.2) mg/dL Ionized Calcium Ashley 4.1 L (4.5-5.3) mg/dL Alkaline Phosphatase 217 H (38-126) U/L C-Reactive Protein 5.5 H (<1.0) mg/dL Total Protein 3.1 L (6.3-8.2) g/dL Albumin 1.6 L (3.5-5.0) g/dL 10/09/21 10/09/21 Range/Units 04:57 05:51 WBC (3.8-10.6) k/uL RBC (3.80-5.40) m/uL Hgb (11.4-16.0) gm/dL Hct (34.0-46.0) % MCHC (31.0-37.0) g/dL ABG pH 7.47 H (7.35-7.45) ABG HCO3 30 H (21-25) mmol/L ABG Total CO2 31 H (19-24) mmol/L ABG O2 Saturation 97.2 H (94-97) % Potassium (3.5-5.1) mmol/L Chloride (98-107) mmol/L BUN (7-17) mg/dL Creatinine (0.52-1.04) mg/dL Glucose (74-99) mg/dL POC Glucose (mg/dL) 202 H (75-99) mg/dL Calcium (8.4-10.2) mg/dL Ionized Calcium Ashley (4.5-5.3) mg/dL Alkaline Phosphatase (38-126) U/L C-Reactive Protein (<1.0) mg/dL Total Protein (6.3-8.2) g/dL Albumin (3.5-5.0) g/dL Microbiology - Last 24 Hours (Table) 10/02/21 10:51 Blood Culture - Final Blood No Growth after 144 hours 10/02/21 10:30 Blood Culture - Final Blood No Growth after 144 hours Assessment and Plan Plan: Assessment: 1. 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 Baseline creatinine near 1 and peaked at 3.5 to this admission - 2.46 today. N o hydronephrosis noted on CAT scan. 2. Status post renal transplant in 2017 at [facility]. 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 3. Metabolic acidosis secondary to acute kidney injury and lactic acidosis. Resolved. Then became alkalotic - improved with Diamox. 4. Pneumoperitoneum s/p exploratory laparotomy, right oophorectomy and colostomy this admission. 5. Septic shock, off levophed. 6. COVID-19 infection. 7. Acute hypoxic respiratory failure. 8. Volume overload. Improved. 9. Hypocalcemia secondary to acute kidney injury maintained on vitamin D supplementation and Tums. PTH 214. Vitamin D level 35.9. Corrected calcium for albumin is 8.6. 10. Hypokalemia from diuresis and poor intake. Plan: Maintain tube feeds. Potassium being replaced. She is currently on IV hydrocortisone. Cyclosporine resumed at low dose on 10/07/2021. Continue to monitor renal function and urine output. Wean FiO2. 1 g IV calcium gluconate.
[2021-10-09] MEDS: PIPERACILLIN-TAZOBACTAM 3.375 GM in SODIUM CHLORIDE 0.9% 100 ML IVPB SCH ×2 (08:54→21:23)
[2021-10-09] MEDS: ANIDULAFUNGIN 100 MG in SODIUM CHLORIDE 0.9% 100 ML IVPB SCH (08:55)
[2021-10-09] MEDS: cycloSPORINE 25 MG CAP PO SCH ×2 (08:55→21:22)
[2021-10-09] MEDS: CHLORHEXIDINE GLUCONATE 15 ML CUP MUCOUS MEM SCH ×2 (08:55→21:22)
[2021-10-09] MEDS: CALCIUM CARBONATE 500 MG CHEWABLE PO SCH ×2 (08:55→21:22)
[2021-10-09] MEDS: METOPROLOL TARTRATE 50 MG TAB PO SCH (08:56)
[2021-10-09] MEDS: APIXABAN 2.5 MG TABLET PO SCH ×2 (08:56→21:22)
[2021-10-09] MEDS: HYDROCORTISONE SUCCINATE 100 MG/2 ML VIAL IV SCH ×3 (08:56→23:42)
[2021-10-09] MEDS: PANTOPRAZOLE 40 MG/10 ML VIAL IV SCH (08:56)
--- NOTE | 2021-10-09 09:05 | XR ---
EXAMINATION TYPE: XR chest 1V portable DATE OF EXAM: 10/09/2021 COMPARISON: NONE HISTORY: Shortness of breath TECHNIQUE: Single frontal view of the chest is obtained. FINDINGS: ET and NG tube and central line stable bilateral infiltrate and pleural effusion. No pneum othorax. Underlying COPD noted. Arthropathy of the shoulders. Atherosclerotic change aorta. IMPRESSION: COPD with stable bilateral infiltrate and pleural effusion.
--- NOTE | 2021-10-09 10:38 | P.PN ---
Subjective Progress Note Date: 10/09/21 The patient is seen at bedside and her condition is about the same per the nurse. She on IV Precedex 0.4mcg/kg/hr Objective - Vital Signs Vital signs: Vital Signs Temp 97.3 F L 10/09/21 04:00 Pulse 105 H 10/09/21 07:00 Resp 32 H 10/09/21 07:00 BP 120/89 10/09/21 06:00 Pulse Ox 95 10/09/21 07:00 Intake & Output 10/08/21 10/09/21 10/09/21 18:59 06:59 18:59 Intake Total 716.728 933.020 54 Output Total 1055 1085 75 Balance -338.272 -151.980 -21 Weight 72 kg Intake: IV 339 453 23 0.9 220 20 Piperacillin-Tazobactam 3 100 100 .375 gm In Sodium Chloride 0.9% 100 ml @ 25 mls/hr IVPB Q12H [facility] Rx# :[id number] Pressure Bag 39 33 3 metroNIDAZOLE-NS PMX 500 200 100 mg In Saline 1 100ml.bag @ 100 mls/hr IVPB Q6H [facility] Rx#:[id number] Intake, IV Titration 284.728 110.020 Amount Dexmedetomidine/0.9% NaCl 95.568 80.84 (Pmx) 400 mcg In Empty Bag 1 bag @ 0.2 MCG/KG/HR 3.225 mls/hr IV .Q24H [facility] Rx#:[id number] Lacosamide IV 100 mg In 50 Sodium Chloride 0.9% 50 ml @ 100 mls/hr IVPB ONCE [facility] Rx#:[id number] Norepinephrine 32 mg In 29.160 29.180 Sodium Chloride 0.9% 218 ml @ 0.05 MCG/KG/MIN 1. 329 mls/hr IV .Q24H [facility] Rx#:[id number] Sodium Chloride 0.9% 1, 110 000 ml @ 10 mls/hr IV . Q24H [facility] Rx#:[id number] Tube Feeding 93 310 31 Other 60 Output: Urine 755 585 75 Stool 300 500 Other: Voiding Method Indwelling Catheter Indwelling Catheter ABP, PAP, CO, CI - Last Documented Arterial Blood Pressure 130/66 - Exam GENERAL: The patient is lying in bed and does not seem in acute distress. INTEGUMENTARY: Edema throughout (seems predominately uppers). NEUROLOGICAL: Limited since on IV Precedex 0.4mcg/kg/hr and her condition. Higher mental function: The patient is comatose. Patient is not verbally repsponsive or following commands. Cranial nerves: I had to manually open eyes. Primary gaze is midline. The pupils are round, equal (3mm) and reactive to light. No facial weakness. Patient would grimace face to painful stimuli. Has positive gag reflex. Is breathing over the vent. Motor: The strength is unable to assess. But would grimace face to painful stimuli throughout. Normal bulk. No spontaneous movement noted. Cerebellum: Could not assess. Sensation: Light touch could not be assessed but grimaces to painful stimuli throughout.. Reflexes (right/left): 1+ throughout.. Plantars are mute bilaterally. WORK-UP: Potassium 0.2, sodium is 142, calcium 66.4, ionized calcium of 4.0 and was as low as 3.0, phosphorus is 5.4 and was as high as 8.6 during this hospital stay. AST of 35 and ALT of 11. Urine culture was negative for urinary tract infection. Blood cultures are no growth after 120 days Routine EEG on 10/07/2020 is abnormal. The background slowing is suggestive of moderate to severe encephalopathy. There is no focal slowing, epileptiform discharges or seizure on the EEG. 2.5hour EEG on 10/08/21: Is reported as abnormal 2.5 hour EEG. No clinical or electrographic seizures were reported. No epileptiform activity was present. This was predominantly a sleep EEG. During rare periods of relatively maximal arousal, diffuse theta range slowing was seen which was not epileptiform in nature. These findings indicate moderate diffuse cerebral dysfunction which may be in part due to medication effect. CT Brain w/o: Is reported as cerebral atrophy and chronic small vessel ischemia. No acute intracranial abnormality. - Labs CBC & Chem 7: 10/09/21 04:00 10/09/21 10:29 Labs: Abnormal Lab Results - Last 24 Hours (Table) 10/08/21 10/08/21 10/08/21 Range/Units 11:40 11:51 15:49 WBC (3.8-10.6) k/uL RBC (3.80-5.40) m/uL Hgb (11.4-16.0) gm/dL Hct (34.0-46.0) % MCHC (31.0-37.0) g/dL ABG pH (7.35-7.45) ABG HCO3 (21-25) mmol/L ABG Total CO2 (19-24) mmol/L ABG O2 Saturation (94-97) % Potassium 3.1 L (3.5-5.1) mmol/L Chloride (98-107) mmol/L BUN (7-17) mg/dL Creatinine (0.52-1.04) mg/dL Glucose (74-99) mg/dL POC Glucose (mg/dL) 213 H 196 H (75-99) mg/dL Calcium (8.4-10.2) mg/dL Ionized Calcium Ashley (4.5-5.3) mg/dL Alkaline Phosphatase (38-126) U/L C-Reactive Protein (<1.0) mg/dL Total Protein (6.3-8.2) g/dL Albumin (3.5-5.0) g/dL 10/08/21 10/08/21 10/08/21 Range/Units 17:39 23:37 23:45 WBC (3.8-10.6) k/uL RBC (3.80-5.40) m/uL Hgb (11.4-16.0) gm/dL Hct (34.0-46.0) % MCHC (31.0-37.0) g/dL ABG pH (7.35-7.45) ABG HCO3 (21-25) mmol/L ABG Total CO2 (19-24) mmol/L ABG O2 Saturation (94-97) % Potassium 3.1 L (3.5-5.1) mmol/L Chloride (98-107) mmol/L BUN (7-17) mg/dL Creatinine (0.52-1.04) mg/dL Glucose (74-99) mg/dL POC Glucose (mg/dL) 196 H 207 H (75-99) mg/dL Calcium (8.4-10.2) mg/dL Ionized Calcium Ashley (4.5-5.3) mg/dL Alkaline Phosphatase (38-126) U/L C-Reactive Protein (<1.0) mg/dL Total Protein (6.3-8.2) g/dL Albumin (3.5-5.0) g/dL 10/09/21 10/09/21 10/09/21 Range/Units 04:00 04:00 04:00 WBC 28.5 H (3.8-10.6) k/uL RBC 3.20 L (3.80-5.40) m/uL Hgb 9.6 L (11.4-16.0) gm/dL Hct 31.1 L (34.0-46.0) % MCHC 30.8 L (31.0-37.0) g/dL ABG pH (7.35-7.45) ABG HCO3 (21-25) mmol/L ABG Total CO2 (19-24) mmol/L ABG O2 Saturation (94-97) % Potassium 3.4 L (3.5-5.1) mmol/L Chloride 108 H (98-107) mmol/L BUN 100 H (7-17) mg/dL Creatinine 2.46 H (0.52-1.04) mg/dL Glucose 193 H (74-99) mg/dL POC Glucose (mg/dL) (75-99) mg/dL Calcium 6.6 L (8.4-10.2) mg/dL Ionized Calcium Ashley 4.1 L (4.5-5.3) mg/dL Alkaline Phosphatase 217 H (38-126) U/L C-Reactive Protein 5.5 H (<1.0) mg/dL Total Protein 3.1 L (6.3-8.2) g/dL Albumin 1.6 L (3.5-5.0) g/dL 10/09/21 10/09/21 Range/Units 04:57 05:51 WBC (3.8-10.6) k/uL RBC (3.80-5.40) m/uL Hgb (11.4-16.0) gm/dL Hct (34.0-46.0) % MCHC (31.0-37.0) g/dL ABG pH 7.47 H (7.35-7.45) ABG HCO3 30 H (21-25) mmol/L ABG Total CO2 31 H (19-24) mmol/L ABG O2 Saturation 97.2 H (94-97) % Potassium (3.5-5.1) mmol/L Chloride (98-107) mmol/L BUN (7-17) mg/dL Creatinine (0.52-1.04) mg/dL Glucose (74-99) mg/dL POC Glucose (mg/dL) 202 H (75-99) mg/dL Calcium (8.4-10.2) mg/dL Ionized Calcium Ashley (4.5-5.3) mg/dL Alkaline Phosphatase (38-126) U/L C-Reactive Protein (<1.0) mg/dL Total Protein (6.3-8.2) g/dL Albumin (3.5-5.0) g/dL Microbiology - Last 24 Hours (Table) 10/02/21 10:51 Blood Culture - Final Blood No Growth after 144 hours 10/02/21 10:30 Blood Culture - Final Blood No Growth after 144 hours Assessment and Plan Assessment: Altered mental status due to multi-factorial: Metabolic encephalopathy with acute kidney insufficiency, electrolyte abnormality and COVID-19 pneumonia as well medication use (IV Precedex). Septic shock due to abdominal sepsis Acute COVID-19 pneumonia Acute pneumoperitoneum and abdominal sepsis with perforation of sigmoid requiring surgery, colostomy postop day 6 Acute hypoxia worsens her failure and is intubated on the ventilator Chronic kidney disease--- trending down Chronic atrial fibrillation and was on Eliquis at home History of kidney addressed rotation on immunosuppressant therapy (CellCept, prednisone and cyclosporine) History of breast cancer/lobular carcinoma in situ requiring surgery only Plan: Routine EEG on 10/07/2020 is abnormal. The background slowing is suggestive of moderate to severe encephalopathy. There is no focal slowing, epileptiform discharges or seizure on the EEG. 2.5hour EEG on 10/08/21: Is reported as abnormal 2.5 hour EEG. No clinical or electrographic seizures were reported. No epileptiform activity was present. This was predominantly a sleep EEG. During rare periods of relatively maximal arousal, diffuse theta range slowing was seen which was not epileptiform in n ature. These findings indicate moderate diffuse cerebral dysfunction which may be in part due to medication effect. I personally felt ?frontal sharp and wave was noted over right>left. Therefore, I started the patient on prophylactic Vimpat 50mg bid IV and loading dose of 100mg once IV starting yesterday. Ordered repeat 2.[address] head 10/07/2021: Is reported as cerebral atrophy and chronic small vessel ischemia. No acute intracranial abnormality. Every 2 neurochecks Nephrology is on board Infection disease team is on board Cardiology is on board for Oma. fib. Once she is stable recommend restarting the patient anticoagulation. We'll defer the rest of medical management to the primary team. Condition: Appears poor. The plan is discussed with the nurse. I called the daughter (Milana) and updated her on her mother condition and all her questions were answered. Esdras Swift M.D. Neuro-Hospitalist. Time with Patient: Greater than 30
[2021-10-09 11:37] LABS: Glucose,Whole Blood 185 mg/dL (75-99)
[2021-10-09] MEDS: LACOSAMIDE IV 50 MG in SODIUM CHLORIDE 0.9% 50 ML IVPB SCH ×2 (11:46→21:23)
--- NOTE | 2021-10-09 12:15 | P.PN ---
Subjective The patient is a 81-year-old female admitted with bowel perforation. Patient is mechanically ventilated for acute hypoxic respiratory failure. Patient has a history of permanent atrial fibrillation on Eliquis, TIA, hypertension, dyslipidemia, kidney transplant x2 on immunosuppressive therapy. Patient is mechanically ventilated resting in bed, with no signs of acute distress. She continues to remain in atrial fibrillation, with an uncontrolled ventricle rate. Eliquis has been restarted for anticoagulation, but with continued to improve, 236 today. Will decrease Lopressor to 25 mg TID to better control heart rate. Blood pressure has been inconsistent, patient was hypotensive this morning. And is hypertensive this afternoon with a blood pressure reading of 152/77. Patient has currently off Levophed drip. heart rate 106, respirations 32, mechanically ventilated, afebrile. Diagnostics: EKG shows patient remains in atrial fibrillation with an uncontrolled ventricle response Chest x-ray shows COPD with bilateral infiltrates and pleural effusion no change from day before Labs reviewedhemoglobin 9.6, platelet count 236, sodium 145, potassium 3.4, BUN 100, creatinine 2.46, rales AST 26, ALT 11 Objective - Vital Signs Vital signs: Vital Signs Temp 98.0 F 10/09/21 08:00 Pulse 106 H 10/09/21 11:00 Resp 32 H 10/09/21 11:00 BP 152/77 10/09/21 11:00 Pulse Ox 96 10/09/21 11:00 Intake & Output 10/08/21 10/09/21 10/09/21 18:59 06:59 18:59 Intake Total 716.728 933.020 571.190 Output Total 1055 1085 515 Balance -338.272 -151.980 56.190 Weight 72 kg 72 kg Intake: IV 339 453 269 0.9 220 60 Piperacillin-Tazobactam 3 100 100 100 .375 gm In Sodium Chloride 0.9% 100 ml @ 25 mls/hr IVPB Q12H [facility] Rx# :[id number] Pressure Bag 39 33 9 metroNIDAZOLE-NS PMX 500 200 100 100 mg In Saline 1 100ml.bag @ 100 mls/hr IVPB Q6H [facility] Rx#:[id number] Intake, IV Titration 284.728 110.020 240.190 Amount Anidulafungin 100 mg In 100 Sodium Chloride 0.9% 100 ml @ 84 mls/hr IVPB DAILY [facility] Rx#:[id number] Calcium Gluconate 1 gm In 100 Sodium Chloride 0.9% 100 ml @ 100 mls/hr IVPB ONCE [facility] Rx#:[id number] Dexmedetomidine/0.9% NaCl 95.568 80.84 38.808 (Pmx) 400 mcg In Empty Bag 1 bag @ 0.2 MCG/KG/HR 3.225 mls/hr IV .Q24H [facility] Rx#:[id number] Lacosamide IV 100 mg In 50 Sodium Chloride 0.9% 50 ml @ 100 mls/hr IVPB ONCE [facility] Rx#:[id number] Norepinephrine 32 mg In 29.160 29.180 1.382 Sodium Chloride 0.9% 218 ml @ 0.05 MCG/KG/MIN 1. 329 mls/hr IV .Q24H [facility] Rx#:[id number] Sodium Chloride 0.9% 1, 110 000 ml @ 10 mls/hr IV . Q24H [facility] Rx#:[id number] Tube Feeding 93 310 62 Other 60 Output: Urine 755 585 165 Stool 300 500 350 Other: Voiding Method Indwelling Catheter Indwelling Catheter ABP, PAP, CO, CI - Last Documented Arterial Blood Pressure 135/81 - Exam Physical exam limited to COVID positive PHYSICAL EXAM: VITAL SIGNS: Reviewed. GENERAL: Well-developed in no acute distress. HEENT: Head is normocephalic. NECK: Supple. No JVD or thyromegaly RESPIRATORY: Respirations even and unlabored. Patient mechanically ventilated - Labs CBC & Chem 7: 10/09/21 04:00 10/09/21 04:00 Labs: Abnormal Lab Results - Last 24 Hours (Table) 10/08/21 10/08/21 10/08/21 Range/Units 15:49 17:39 23:37 WBC (3.8-10.6) k/uL RBC (3.80-5.40) m/uL Hgb (11.4-16.0) gm/dL Hct (34.0-46.0) % MCHC (31.0-37.0) g/dL ABG pH (7.35-7.45) ABG HCO3 (21-25) mmol/L ABG Total CO2 (19-24) mmol/L ABG O2 Saturation (94-97) % Potassium 3.1 L 3.1 L (3.5-5.1) mmol/L Chloride (98-107) mmol/L BUN (7-17) mg/dL Creatinine (0.52-1.04) mg/dL Glucose (74-99) mg/dL POC Glucose (mg/dL) 196 H (75-99) mg/dL Calcium (8.4-10.2) mg/dL Ionized Calcium Ashley (4.5-5.3) mg/dL Alkaline Phosphatase (38-126) U/L C-Reactive Protein (<1.0) mg/dL Total Protein (6.3-8.2) g/dL Albumin (3.5-5.0) g/dL 10/08/21 10/09/21 10/09/21 Range/Units 23:45 04:00 04:00 WBC 28.5 H (3.8-10.6) k/uL RBC 3.20 L (3.80-5.40) m/uL Hgb 9.6 L (11.4-16.0) gm/dL Hct 31.1 L (34.0-46.0) % MCHC 30.8 L (31.0-37.0) g/dL ABG pH (7.35-7.45) ABG HCO3 (21-25) mmol/L ABG Total CO2 (19-24) mmol/L ABG O2 Saturation (94-97) % Potassium (3.5-5.1) mmol/L Chloride (98-107) mmol/L BUN (7-17) mg/dL Creatinine (0.52-1.04) mg/dL Glucose (74-99) mg/dL POC Glucose (mg/dL) 207 H (75-99) mg/dL Calcium (8.4-10.2) mg/dL Ionized Calcium Ashley (4.5-5.3) mg/dL Alkaline Phosphatase (38-126) U/L C-Reactive Protein 5.5 H (<1.0) mg/dL Total Protein (6.3-8.2) g/dL Albumin (3.5-5.0) g/dL 10/09/21 10/09/21 10/09/21 Range/Units 04:00 04:57 05:51 WBC (3.8-10.6) k/uL RBC (3.80-5.40) m/uL Hgb (11.4-16.0) gm/dL Hct (34.0-46.0) % MCHC (31.0-37.0) g/dL ABG pH 7.47 H (7.35-7.45) ABG HCO3 30 H (21-25) mmol/L ABG Total CO2 31 H (19-24) mmol/L ABG O2 Saturation 97.2 H (94-97) % Potassium 3.4 L (3.5-5.1) mmol/L Chloride 108 H (98-107) mmol/L BUN 100 H (7-17) mg/dL Creatinine 2.46 H (0.52-1.04) mg/dL Glucose 193 H (74-99) mg/dL POC Glucose (mg/dL) 202 H (75-99) mg/dL Calcium 6.6 L (8.4-10.2) mg/dL Ionized Calcium Ashley 4.1 L (4.5-5.3) mg/dL Alkaline Phosphatase 217 H (38-126) U/L C-Reactive Protein (<1.0) mg/dL Total Protein 3.1 L (6.3-8.2) g/dL Albumin 1.6 L (3.5-5.0) g/dL 10/09/21 Range/Units 11:36 WBC (3.8-10.6) k/uL RBC (3.80-5.40) m/uL Hgb (11.4-16.0) gm/dL Hct (34.0-46.0) % MCHC (31.0-37.0) g/dL ABG pH (7.35-7.45) ABG HCO3 (21-25) mmol/L ABG Total CO2 (19-24) mmol/L ABG O2 Saturation (94-97) % Potassium (3.5-5.1) mmol/L Chloride (98-107) mmol/L BUN (7-17) mg/dL Creatinine (0.52-1.04) mg/dL Glucose (74-99) mg/dL POC Glucose (mg/dL) 185 H (75-99) mg/dL Calcium (8.4-10.2) mg/dL Ionized Calcium Ashley (4.5-5.3) mg/dL Alkaline Phosphatase (38-126) U/L C-Reactive Protein (<1.0) mg/dL Total Protein (6.3-8.2) g/dL Albumin (3.5-5.0) g/dL Microbiology - Last 24 Hours (Table) 10/02/21 10:51 Blood Culture - Final Blood No Growth after 144 hours 10/02/21 10:30 Blood Culture - Final Blood No Growth after 144 hours Assessment and Plan Assessment: Atrial fibrillation with an uncontrolled ventricular rate Improved thrombocytopenia Hypokalemia History of hypertension History of hyperlipidemia Acute hypoxic respiratory failure requiring mechanical ventilation Septic shock secondary to acute abdominal pneumoperitoneum History of kidney transplant containing on immunosuppressants Plan: Dose change lopressor to 25mg TID for heart rate control Continue with Eliquis for anticoagulation due to improved thrombocytopenia, continue to monitor platelet count closely Continue all other current cardiac medications Continue with telemetry monitoring Replace potassium per protocol Further recommendations based on clinical course. The above impression and plan of care have been discussed and directed by the signing physician. Macy Orosco, nurse practitioner, acting as scribe for signing physician.
--- NOTE | 2021-10-09 12:49 | P.PN ---
Subjective Progress Note Date: 10/09/21 HISTORY OF PRESENT ILLNESS This is an 81-year-old pleasant female patient of Dr. Henao, with known history of hypertension, CK D stage III, paroxysmal atrial fibrillation admitted through the emergency room secondary to abdominal pain and found to have pneumoperitoneum. She has significant discomfort, accompanied by nausea, vomiting, no fever. She presented to emergency room with normal findings, in the CAT scan showing moderate pneumoperitoneum, with small bowel thickening, and mild dilatation saray a of the mesenteric considered for mesenteric ischemia there is a left-sided pelvic cystic mass. Chest x-ray shows atelectasis, She is hypotensive, when seen, lactic acid level is high at 12, she was having difficulty of breathing with tachypnea, hence she was preemptively intubated in the emergency room,. She was placed on assist-control, rate of 26, FiO2 40%, PEEP of 5 at the volume of 300. She was sent ICU for stabilization requiring norepinephrine infusion at 0.5 mcg/kg/m for hypotension and septic shock, she received 3.5 L of normal saline for which she is now undergoing exploratory laparotomy. Consult was made with Dr. Price surgeon, and Dr. Nino, critical care ICU physician incidentally, she was tested confirmed Covid positive, on October 0110/02: Patient is seen today in the intensive care unit, remains intubated and on mechanical ventilation with tidal volume 300, FiO2 40 and PEEP of 5. Patient is currently on propofol, bicarb drip, amiodarone is being started for A. fib. Patient is on antibiotics the form of Zosyn and Flagyl. Repeat chest x-ray reveals basilar atelectasis, correlate to exclude pneumonia, possible effusion. Patient is followed by infectious disease, cardiology, gusset stitcher, nephrology, general surgery. Repeat blood work today reveals WBC 24.6, hemoglobin 12.1, platelet count 123. Sodium 136, potassium 4.5, chloride 109, CO2 11, BUN 38 creatinine 3.04. Calcium 5.9. AST 109. Patient remains in isolation for Covid 19. 10/03: Remains intubated on mechanical ventilation with tidal volume 300, FiO2 40, PEEP of 5. She has had very minimal amount output on ostomy. She has been on high-dose levo fed started on vasopressin as well and heparin drip is off due to elevated PTT. She has no output from her OG. Urine output has improved. 10/04: She remains intubated and on mechanical ventilation with tidal volume 300, FiO2 40 and PEEP of 5. Patient started having output from ostomy last evening, liquid brown approximate 950 ML's. Calcium is being replaced. She is still on low-dose norepinephrine and vasopressin as well as IV fluids. Anticipate she will start oral medications and feedings today. Chest x-ray reveals stable bilateral infiltrate and pleural effusion. 10/05 patient remains intubated, PEEP of 5, O2 40% Dilaudid, pressures are little bit on the lower side, still with norepinephrine titrated with bp, NG feedings at 23 mL an hour, output noted in colostomy, no plans for vent weaning at this time in output is adequate patient is on Cortef 100 mg every 8 hours, was on oral prednisone chronically prior to admission. Ahlquist is still on hold, on IV Zosyn and Flagyl 10/06 and rate in the 110s, blood pressure 125/92, remains to be intubated, assist control 16, with FiO2 40%, PEEP of 5. Slightly labored breathing colostomy, without no blood, NG feedings. On Zosyn and Flagyl multiple specialists following, patient remains in ICU 10/07: Patient remains intubated and on mechanical ventilation with tidal volume 300, FiO2 50 and PEEP of 5. Patient remains unresponsive. She is off vasopressors. She is on tube feedings. Urine output has been 30-40 mL per hour. Cardiology is on consult for atrial fibrillation with RVR and started Lopressor 25 mg twice daily. Chest x-ray reveals correlate for congestive heart failure with basilar effusions and associated atelectasis versus edema, pneumonia not excluded. 10/08: Patient remains in the intensive care unit. She has been off propofol. She is on Precedex and remains intubated on mechanical ventilation with tidal volume 300, FiO2 50, PEEP of 5. Patient's been cleared start eliquis tomorrow by Dr. Price. She is on levo fed which is being weaned down. She has had output from her ostomy. EEG is abnormal with background slowing suggestive of moderate to severe encephalopathy. 10/10: Patient remains in the intensive care unit intubated and on mechanical ventilation with tidal volume 300, FiO2 50, PEEP of 5. Patient is back on norep inephrine this morning with significant increase in blood pressure, now norepinephrine is off. Precedex has been weaned. Patient has not showed any purposeful movements. Patient is afebrile, heart rate 92, blood pressure 122/73, respiratory rate 31, pulse ox 96%. WBC 28.5, hemoglobin 9.6. Potassium 3.4, chloride 108, BUN 100, creatinine 2.46. Blood sugars are between 185 and 202. Alkaline phosphatase 217. C-reactive protein 5.5. Patient remains in isolation due to Covid [address] Kahn has started the patient on Eraxis. Review of SYSTEMS ROS unobtainable: due to endotracheal tube PHYSICAL EXAMINATION Gen: This is an 81-year-old female, resting on the ICU bed and appears to be comfortable. ET and orogastric tube in place. HEENT: Head is atraumatic, normocephalic. Pupils equal, round. Sclerae is anicteric. NECK: Supple. No JVD. No lymphadenopathy. No thyromegaly. LUNGS: Clear to auscultation. No wheezes or rhonchi. No intercostal retractions. HEART: Regular rate and rhythm. No murmur. ABDOMEN: Soft. Mild abdominal distention. No tenderness. No output in colostomy bag. Reyes catheter is in place draining dark mier urine. EXTREMITIES: No pedal edema. No calf tenderness. NEUROLOGICAL: Patient is intubated. ASSESSMENT AND PLAN 1. Acute pneumoperitoneum, with peritonitis considered for small bowel perforation, underlying ischemic bowel and abdominal sepsis 2. Acute hypoxic respiratory failure requiring mechanical intubation. General surgery, is status post exploratory laparotomy 10/01/2020. Continue Eraxis 200 mg daily, and continue on Zosyn and Flagyl. Patient is on stress dose of hydrocortisone 100 mg every 8 hours. 3. Small bowel perforation suspected, with septic shock, explore lap on 10/01/1908/10/2022, IV Zosyn 4. Septic shock, severe lactic acidosis, IV antibiotics, with fluids w pressors 5. History of kidney transplantation, on immunosuppressive agent, CellCept and prednisone and cyclosporine 6. Acute allograft dysfunction secondary to ATN secondary to hypotension and shock CKD, suspect stage III, 7. chronic atrial fibrillation, with prior TIA. Patient is on Lovenox, Lopressor 25 mg twice daily, cardiology consult appreciated. 8. Covid 19 infection, unknown infection time and onset of signs and symptoms, vaccination status not Determined, consult Dr. Kahn 9. Osteoporosis 10. Breast cancer, with lobular carcinoma in situ, had surgery for these activity unknown, 11. 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 Carmona. 12. Hypocalcemia. Continue to monitor and replace 13. Thrombocytopenia secondary to sepsis. Continue to monitor. 14. DVT prophylaxis GI prophylaxis CODE STATUS, full until specified Prognosis guarded. Impression and plan of care have been directed as dictated by the signing physician. Cierra Rodas nurse practitioner acting as scribe for signing physician. Objective - Vital Signs Vital signs: Vital Signs Temp 98.0 F 10/09/21 08:00 Pulse 93 10/09/21 10:00 Resp 30 H 10/09/21 10:00 BP 92/60 10/09/21 10:00 Pulse Ox 97 10/09/21 10:00 Intake & Output 10/08/21 10/09/21 10/09/21 18:59 06:59 18:59 Intake Total 716.728 933.020 569.808 Output Total 1055 1085 515 Balance -338.272 -151.980 54.808 Weight 72 kg 72 kg Intake: IV 339 453 269 0.9 220 60 Piperacillin-Tazobactam 3 100 100 100 .375 gm In Sodium Chloride 0.9% 100 ml @ 25 mls/hr IVPB Q12H [facility] Rx# :[id number] Pressure Bag 39 33 9 metroNIDAZOLE-NS PMX 500 200 100 100 mg In Saline 1 100ml.bag @ 100 mls/hr IVPB Q6H [facility] Rx#:[id number] Intake, IV Titration 284.728 110.020 238.808 Amount Anidulafungin 100 mg In 100 Sodium Chloride 0.9% 100 ml @ 84 mls/hr IVPB DAILY [facility] Rx#:[id number] Calcium Gluconate 1 gm In 100 Sodium Chloride 0.9% 100 ml @ 100 mls/hr IVPB ONCE ONE Rx#:[id number] Dexmedetomidine/0.9% NaCl 95.568 80.84 38.808 (Pmx) 400 mcg In Empty Bag 1 bag @ 0.2 MCG/KG/HR 3.225 mls/hr IV .Q24H [facility] Rx#:[id number] Lacosamide IV 100 mg In 50 Sodium Chloride 0.9% 50 ml @ 100 mls/hr IVPB ONCE STA Rx#:[id number] Norepinephrine 32 mg In 29.160 29.180 0 Sodium Chloride 0.9% 218 ml @ 0.05 MCG/KG/MIN 1. 329 mls/hr IV .Q24H [facility] Rx#:[id number] Sodium Chloride 0.9% 1, 110 000 ml @ 10 mls/hr IV . Q24H [facility] Rx#:[id number] Tube Feeding 93 310 62 Other 60 Output: Urine 755 585 165 Stool 300 500 350 Other: Voiding Method Indwelling Catheter Indwelling Catheter ABP, PAP, CO, CI - Last Documented Arterial Blood Pressure 101/59 - Labs CBC & Chem 7: 10/09/21 04:00 10/09/21 10:29 Labs: Abnormal Lab Results - Last 24 Hours (Table) 10/08/21 10/08/21 10/08/21 Range/Units 11:51 15:49 17:39 WBC (3.8-10.6) k/uL RBC (3.80-5.40) m/uL Hgb (11.4-16.0) gm/dL Hct (34.0-46.0) % MCHC (31.0-37.0) g/dL ABG pH (7.35-7.45) ABG HCO3 (21-25) mmol/L ABG Total CO2 (19-24) mmol/L ABG O2 Saturation (94-97) % Potassium 3.1 L (3.5-5.1) mmol/L Chloride (98-107) mmol/L BUN (7-17) mg/dL Creatinine (0.52-1.04) mg/dL Glucose (74-99) mg/dL POC Glucose (mg/dL) 196 H 196 H (75-99) mg/dL Calcium (8.4-10.2) mg/dL Ionized Calcium Ashley (4.5-5.3) mg/dL Alkaline Phosphatase (38-126) U/L C-Reactive Protein (<1.0) mg/dL Total Protein (6.3-8.2) g/dL Albumin (3.5-5.0) g/dL 10/08/21 10/08/21 10/09/21 Range/Units 23:37 23:45 04:00 WBC (3.8-10.6) k/uL RBC (3.80-5.40) m/uL Hgb (11.4-16.0) gm/dL Hct (34.0-46.0) % MCHC (31.0-37.0) g/dL ABG pH (7.35-7.45) ABG HCO3 (21-25) mmol/L ABG Total CO2 (19-24) mmol/L ABG O2 Saturation (94-97) % Potassium 3.1 L (3.5-5.1) mmol/L Chloride (98-107) mmol/L BUN (7-17) mg/dL Creatinine (0.52-1.04) mg/dL Glucose (74-99) mg/dL POC Glucose (mg/dL) 207 H (75-99) mg/dL Calcium (8.4-10.2) mg/dL Ionized Calcium Ashley (4.5-5.3) mg/dL Alkaline Phosphatase (38-126) U/L C-Reactive Protein 5.5 H (<1.0) mg/dL Total Protein (6.3-8.2) g/dL Albumin (3.5-5.0) g/dL 10/09/21 10/09/21 10/09/21 Range/Units 04:00 04:00 04:57 WBC 28.5 H (3.8-10.6) k/uL RBC 3.20 L (3.80-5.40) m/uL Hgb 9.6 L (11.4-16.0) gm/dL Hct 31.1 L (34.0-46.0) % MCHC 30.8 L (31.0-37.0) g/dL ABG pH 7.47 H (7.35-7.45) ABG HCO3 30 H (21-25) mmol/L ABG Total CO2 31 H (19-24) mmol/L ABG O2 Saturation 97.2 H (94-97) % Potassium 3.4 L (3.5-5.1) mmol/L Chloride 108 H (98-107) mmol/L BUN 100 H (7-17) mg/dL Creatinine 2.46 H (0.52-1.04) mg/dL Glucose 193 H (74-99) mg/dL POC Glucose (mg/dL) (75-99) mg/dL Calcium 6.6 L (8.4-10.2) mg/dL Ionized Calcium Ashley 4.1 L (4.5-5.3) mg/dL Alkaline Phosphatase 217 H (38-126) U/L C-Reactive Protein (<1.0) mg/dL Total Protein 3.1 L (6.3-8.2) g/dL Albumin 1.6 L (3.5-5.0) g/dL 10/09/21 10/09/21 Range/Units 05:51 11:36 WBC (3.8-10.6) k/uL RBC (3.80-5.40) m/uL Hgb (11.4-16.0) gm/dL Hct (34.0-46.0) % MCHC (31.0-37.0) g/dL ABG pH (7.35-7.45) ABG HCO3 (21-25) mmol/L ABG Total CO2 (19-24) mmol/L ABG O2 Saturation (94-97) % Potassium (3.5-5.1) mmol/L Chloride (98-107) mmol/L BUN (7-17) mg/dL Creatinine (0.52-1.04) mg/dL Glucose (74-99) mg/dL POC Glucose (mg/dL) 202 H 185 H (75-99) mg/dL Calcium (8.4-10.2) mg/dL Ionized Calcium Ashley (4.5-5.3) mg/dL Alkaline Phosphatase (38-126) U/L C-Reactive Protein (<1.0) mg/dL Total Protein (6.3-8.2) g/dL Albumin (3.5-5.0) g/dL Microbiology - Last 24 Hours (Table) 10/02/21 10:51 Blood Culture - Final Blood No Growth after 144 hours 10/02/21 10:30 Blood Culture - Final Blood No Growth after 144 hours
--- NOTE | 2021-10-09 14:47 | P.PN ---
Subjective Progress Note Date: 10/09/21 Principal diagnosis: Acute pneumoperitoneum secondary to acute sigmoid colon perforation status post colectomy and diverting colostomy postoperative day #8 10/05 2021, the patient is postop day #4. Remains on a mechanical ventilator. He remains sedated with propofol and the patient is currently on 15 mcg/kg per minute. She is adequately sedated for now. She remains on a mechanical ventilator on assist control mode at the rate of 26, tidal volume of 300, FiO2 of 40% with a PEEP of 5. The blood gas from today shows a father respiratory alkalosis and metabolic alkalosis. PH is at 7.54 with a pCO2 of 37 and pO2 of 80. Chest x-ray showing some atelectatic changes and small effusion the lung bases bilaterally. ET tube is in a good location. There is some mild increase in interstitial markings. Note that the patient is a case of Coumadin nightly related pneumonia also. Hemodynamically, the patient is doing better. She has been weaned off on norepinephrine which is currently running at 0.02 microvascular kilogram per minute and vasopressin remains on a physiologic dose. Her renal function continues to improve in the creatinine is down to 2.7. The patient was also having issues with hypocalcemia. She required calcium placement and her serum calcium total currently is up to 6.3. Ionized calcium is pending for now. Her serum albumin was down to 1.6. Her colostomy was functional and she was started on enteral feeding for nutritional support and she is currently on Nepro at the rate of 23 mL an hour. Another concern is her thrombocytopenia as the patient developed consumptive thrombocytopenia. She is currently on anticoagulation with Eliquis. No bleeding. I am concerned about the potential of bleeding this patient I'm recommending discontinuation of the Eliquis for now. We'll continue the combination of Zosyn and Flagyl as broad-spectrum antibiotic coverage. Cultures of been all negative. Bowel sounds are still hypoactive. The patient will need obviously a sedation holiday today and her candidacy for further weaning will be assessed. 10/06 2021, the patient is still on a mechanical ventilator. The patient is postop day #5. This morning, the patient is off sedation. Once off propofol, the patient's blood pressures improved and the patient is also off pressors. Meanwhile, she is still quite sedated. She is not showing adequate neurological recovery or alertness at this point in time and her mental status is being monitored. She remains on a mechanical ventilator. She had an assist-control at the rate of 26, tidal volume of 300, FiO2 of 40% with a PEEP of 5. The blood gases from today shows a pH of 7.52 with a pCO2 of 41 and pO2 of 66. Chest x- ray shows small bilateral pleural effusions. ET tube is in a good location. There is improved aeration bilaterally. Meanwhile, as mentioned, the patient is off pressors. Platelet counts have improved up to 5072. The white cell count is at 28 with a hemoglobin 11.9.5. Renal function shows a creatinine of 2.6 which is stable. BUN is at 61. Sodium is at 138. The patient remains on examination Zosyn and Flagyl. IV fluids are running at the rate of 20 mL an h our. The patient is off pressors. The patient is on stress dose hydrocortisone regarding her chronic steroid use. In terms of feeding, the patient was started on Nepro which is running at the rate of 23 mL an hour. The patient is producing stool at this point in time. Her cardiac rhythm is still in atrial fibrillation. The rate is controlled. We have stopped anticoagulation due to concern of underlying thrombocytopenia. Her thrombocytopenia was essentially consumptive related to sepsis. Patient was reevaluated today on 10/07/2021, remains in the ICU, intubated and mechanically ventilated, patient is on assist control rate of 16, volume 300 FiO2 40% and PEEP of 5. ABG showed a pO2 of 56, pCO2 33, pH of 7.59. Patient is off sedation now for the last 2 days, and does not seem to be making any neurological improvement, she is hemodynamically stable, she is in atrial fibrillation with a rate of 1:15, she is on Lovenox, the dose was increased to 30 mg subcu twice a day. Patient seems to be hypercapnic, and instead of using propofol, I'm recommending Precedex, and will be titrated accordingly. I'm also recommending a brain CT today and a neurological consultation. Lovenox was increased to twice a day dosing mostly because of her ongoing atrial fibrillation. And she does have renal failure. Ventilator mcdowell, I recommended that we stay on the same vent settings, I did increase the flow to 60 L/m. See count is 26.2 hemoglobin is 9.4. Basic metabolic profile is normal however her BUN is 83 creatinine 2.16, patient is being followed by nephrology. Asked x-ray showed mostly bibasilar airspace disease, patient did test positive for COVID-19 infection however her chest x-ray is not basically typical of COVID-19 pneumonia, and the patient is not requiring significant FiO2 and significant PEEP at this point. Reevaluated today on 10/08/2021, remains in the ICU, intubated and mechanically ventilated. Patient is on assist control rate of 16, volume 300 FiO2 50% and PEEP of 5. ABG showed a pO2 of 77 pCO2 45 pH of 7.43. Patient is only on Precedex for sedation and to keep the patient synchronous with mechanical ventilation without affecting her mental status. She is requiring norepinephrine at 0.1 mcg/kg/m, and she is on antibiotics empirically. Patient is receiving Nepro at 31 mL per hour. Labs showed low potassium of 3.0, being corrected by protocol. Her renal profile is a bit worse with a BUN of 90 creatinine 2.63. LDH is 102 for C-reactive protein is 7.3. WBC count is elevated 30.7 hemoglobin is 8.9 and hematocrit 28.6. Patient is in atrial f ibrillation with controlled rate, she is on Eliquis, antibiotics mcdowell she is on Zosyn and Flagyl for her abdominal sepsis. Neurologically, the patient remains unresponsive to any stimuli, she grimaces with deep painful stimuli, otherwise no responses are noted. Neurology has been consulted on this patient. Reevaluated today on 10/09/2021, remains in the ICU, intubated and mechanically ventilated, remains off sedation except Precedex. Patient remains unresponsive to any stimuli. Being followed by neurology, and apparently her family was updated by neurology on her neurological status. Patient is on assist control rate of 16, volume 300 FiO2 50% and PEEP of 5. ABG showed a pO2 of 87 pCO2 40 0 pH of 7.47. Patient is on Precedex which I plan to discontinue, she is on enteral feeding in the form of Nepro, she is at goal. Patient is in atrial fibrillation, but rate seems to be controlled, her rate is 103 today. She is hemodynamically stable. Patient continues to grimace only to deep painful stimuli otherwise no neurological responses, she is in the process of having EEG during my evaluation. Chest x-ray showed mostly COPD with stable bilateral infiltrates and pleural effusion. WBC count today is 28.5 hemoglobin is 9.6. Electrolytes showed slightly elevated sodium of 145 potassium 3.4 BUN is 100 creatinine 2.46. Objective - Vital Signs Vital signs: Vital Signs Temp 97.6 F 10/09/21 12:00 Pulse 92 10/09/21 12:00 Resp 31 H 10/09/21 12:00 BP 122/73 10/09/21 12:00 Pulse Ox 96 10/09/21 12:00 Intake & Output 10/08/21 10/09/21 10/09/21 18:59 06:59 18:59 Intake Total 716.728 933.020 690.190 Output Total 1055 1085 945 Balance -338.272 -151.980 -254.810 Weight 72 kg 72 kg Intake: IV 339 453 338 0.9 220 120 Piperacillin-Tazobactam 3 100 100 100 .375 gm In Sodium Chloride 0.9% 100 ml @ 25 mls/hr IVPB Q12H [facility] Rx# :[id number] Pressure Bag 39 33 18 metroNIDAZOLE-NS PMX 500 200 100 100 mg In Saline 1 100ml.bag @ 100 mls/hr IVPB Q6H [facility] Rx#:[id number] Intake, IV Titration 284.728 110.020 290.190 Amount Anidulafungin 100 mg In 100 Sodium Chloride 0.9% 100 ml @ 84 mls/hr IVPB DAILY [facility] Rx#:[id number] Calcium Gluconate 1 gm In 100 Sodium Chloride 0.9% 100 ml @ 100 mls/hr IVPB ONCE ONE Rx#:[id number] Dexmedetomidine/0.9% NaCl 95.568 80.84 38.808 (Pmx) 400 mcg In Empty Bag 1 bag @ 0.2 MCG/KG/HR 3.225 mls/hr IV .Q24H [facility] Rx#:[id number] Lacosamide IV 100 mg In 50 50 Sodium Chloride 0.9% 50 ml @ 100 mls/hr IVPB ONCE STA Rx#:[id number] Norepinephrine 32 mg In 29.160 29.180 1.382 Sodium Chloride 0.9% 218 ml @ 0.05 MCG/KG/MIN 1. 329 mls/hr IV .Q24H [facility] Rx#:[id number] Sodium Chloride 0.9% 1, 110 000 ml @ 10 mls/hr IV . Q24H [facility] Rx#:[id number] Tube Feeding 93 310 62 Other 60 Output: Urine 755 585 345 Stool 300 500 600 Other: Voiding Method Indwelling Catheter Indwelling Catheter ABP, PAP, CO, CI - Last Documented Arterial Blood Pressure 130/66 - Exam Gen: This is an 81-year-old female, intubated and mechanically ky tilated. Unresponsive to any stimuli Head: Atraumatic, normocephalic. HEENT: PERRLA, EOMI, nonicteric, no neck masses, no JVD. Endotracheal tube is intact. Orogastric tube is intact. NECK: Supple. No JVD. No lymphadenopathy. No thyromegaly. Cardiac: Irregular irregular rhythm, no S3 gallop. 2/6 systolic murmur throughout the precordium. LUNGS: Symmetrical chest expansion crackles at the bases. Abdomen: Colostomy bag is intact, seems to be functional. Fully catheter is draining meir urine. EXTREMITIES: 1+ bipedal edema, good pulses bilaterally. NEUROLOGICAL: Patient is intubated, grimaces to deep painful stimuli. Psychiatric: Unresponsive to stimuli. Grimaces only to deep painful stimuli. - Labs CBC & Chem 7: 10/09/21 04:00 10/09/21 10:29 Labs: Abnormal Lab Results - Last 24 Hours (Table) 10/08/21 10/08/21 10/08/21 Range/Units 15:49 17:39 23:37 WBC (3.8-10.6) k/uL RBC (3.80-5.40) m/uL Hgb (11.4-16.0) gm/dL Hct (34.0-46.0) % MCHC (31.0-37.0) g/dL ABG pH (7.35-7.45) ABG HCO3 (21-25) mmol/L ABG Total CO2 (19-24) mmol/L ABG O2 Saturation (94-97) % Potassium 3.1 L 3.1 L (3.5-5.1) mmol/L Chloride (98-107) mmol/L BUN (7-17) mg/dL Creatinine (0.52-1.04) mg/dL Glucose (74-99) mg/dL POC Glucose (mg/dL) 196 H (75-99) mg/dL Calcium (8.4-10.2) mg/dL Ionized Calcium Ashley (4.5-5.3) mg/dL Alkaline Phosphatase (38-126) U/L C-Reactive Protein (<1.0) mg/dL Total Protein (6.3-8.2) g/dL Albumin (3.5-5.0) g/dL 10/08/21 10/09/21 10/09/21 Range/Units 23:45 04:00 04:00 WBC 28.5 H (3.8-10.6) k/uL RBC 3.20 L (3.80-5.40) m/uL Hgb 9.6 L (11.4-16.0) gm/dL Hct 31.1 L (34.0-46.0) % MCHC 30.8 L (31.0-37.0) g/dL ABG pH (7.35-7.45) ABG HCO3 (21-25) mmol/L ABG Total CO2 (19-24) mmol/L ABG O2 Saturation (94-97) % Potassium (3.5-5.1) mmol/L Chloride (98-107) mmol/L BUN (7-17) mg/dL Creatinine (0.52-1.04) mg/dL Glucose (74-99) mg/dL POC Glucose (mg/dL) 207 H (75-99) mg/dL Calcium (8.4-10.2) mg/dL Ionized Calcium Ashley (4.5-5.3) mg/dL Alkaline Phosphatase (38-126) U/L C-Reactive Protein 5.5 H (<1.0) mg/dL Total Protein (6.3-8.2) g/dL Albumin (3.5-5.0) g/dL 10/09/21 10/09/21 10/09/21 Range/Units 04:00 04:57 05:51 WBC (3.8-10.6) k/uL RBC (3.80-5.40) m/uL Hgb (11.4-16.0) gm/dL Hct (34.0-46.0) % MCHC (31.0-37.0) g/dL ABG pH 7.47 H (7.35-7.45) ABG HCO3 30 H (21-25) mmol/L ABG Total CO2 31 H (19-24) mmol/L ABG O2 Saturation 97.2 H (94-97) % Potassium 3.4 L (3.5-5.1) mmol/L Chloride 108 H (98-107) mmol/L BUN 100 H (7-17) mg/dL Creatinine 2.46 H (0.52-1.04) mg/dL Glucose 193 H (74-99) mg/dL POC Glucose (mg/dL) 202 H (75-99) mg/dL Calcium 6.6 L (8.4-10.2) mg/dL Ionized Calcium Ashley 4.1 L (4.5-5.3) mg/dL Alkaline Phosphatase 217 H (38-126) U/L C-Reactive Protein (<1.0) mg/dL Total Protein 3.1 L (6.3-8.2) g/dL Albumin 1.6 L (3.5-5.0) g/dL 10/09/21 10/09/21 Range/Units 10:29 11:36 WBC (3.8-10.6) k/uL RBC (3.80-5.40) m/uL Hgb (11.4-16.0) gm/dL Hct (34.0-46.0) % MCHC (31.0-37.0) g/dL ABG pH (7.35-7.45) ABG HCO3 (21-25) mmol/L ABG Total CO2 (19-24) mmol/L ABG O2 Saturation (94-97) % Potassium 3.2 L (3.5-5.1) mmol/L Chloride (98-107) mmol/L BUN (7-17) mg/dL Creatinine (0.52-1.04) mg/dL Glucose (74-99) mg/dL POC Glucose (mg/dL) 185 H (75-99) mg/dL Calcium (8.4-10.2) mg/dL Ionized Calcium Ashley (4.5-5.3) mg/dL Alkaline Phosphatase (38-126) U/L C-Reactive Protein (<1.0) mg/dL Total Protein (6.3-8.2) g/dL Albumin (3.5-5.0) g/dL Microbiology - Last 24 Hours (Table) 10/02/21 10:51 Blood Culture - Final Blood No Growth after 144 hours 10/02/21 10:30 Blood Culture - Final Blood No Growth after 144 hours Assessment and Plan Assessment: Impression: Acute hypoxic respiratory failure, multifactorial. Acute pneumoperitoneum and abdominal sepsis with perforation of sigmoid. Requiring surgery, colostomy, postoperative day #8 Septic shock due to abdominal sepsis Acute COVID-19 pneumonia is strongly suspected. History of kidney transplantation, on immunosuppressive therapy, patient is normally on CellCept prednisone and cyclosporine Chronic kidney disease stage III Chronic atrial fibrillation, on anticoagulation therapy COVID-19 infection possible pneumonia, vaccination status is unknown Osteoporosis History of breast cancer/lobular carcinoma in situ requiring surgery only Thrombocytopenia secondary to sepsis. Suspect acute metabolic encephalopathy and change in mental status. Remains unresponsive, neurology is addressing, EEG is being done today. Recommendation: Continue ventilatory support No plans to wean at present specially with her mental status as it is. Depending on the neurological recommendation, and depending on the neurological status, at that point we'll start discussing either tracheostomy or potentially comfort care measures if the family seems to be agreeable. Continue antibiotics/Zosyn and Flagyl Continue stress doses of hydrocortisone. Restart Eliquis. And discontinue Lovenox Continue to monitor daily electrolytes and labs. Continue antibiotics. Continue patient off immunosuppression Continue vitamin D Continue GI prophylaxis/Protonix Continue to hold sedation and assessment and status on a daily basis. Continue to use Precedex instead. Neurological consultation CT of the brain without contrast.Showed mostly cerebral atrophy and chronic small vessel ischemia in no acute intracranial process Patient is critically ill, critical care time is over 30 minutes. Time with Patient: Greater than 30
--- NOTE | 2021-10-09 15:41 | P.PN ---
Subjective Progress Note Date: 10/09/21 CHIEF COMPLAINT: Abdominal pain HISTORY OF PRESENT ILLNESS: Patient is postop day #8 exploratory laparotomy, sigmoid colectomy with colostomy and right oophorectomy for perforated sigmoid colon. Patient is currently the ICU and intubated. Patient has had fluctuating blood pressures. There is concerns for underlying seizure. She's been placed on Vimpat. She's scheduled for repeat EEG today. Antibiotics were adjusted by infectious disease. Patient is tolerating tube feeds with only minimal residual of 7 mL. Patient does remain on Precedex. She was unresponsive. Patient was restarted on her Eliquis today Patient seen and examined with Dr. garcia PHYSICAL EXAM: VITAL SIGNS: Reviewed. GENERAL: Well-developed in no acute distress. HEENT: No sclera icterus. Extraocular movements grossly intact. Moist buccal mucosa. Head is atraumatic, normocephalic. ABDOMEN: Soft. Nondistended. Dressing clean dry and intact. Stool present in ostomy NEUROLOGIC: Intubated unresponsive ASSESSMENT: 1. Perforated sigmoid colon status post exploratory laparotomy, sigmoid colectomy with colostomy and right oophorectomy 2. Acute hypoxic respiratory failure currently intubated and on mechanical ventilation 3. Septic shock due to perforated sigmoid colon 4. History of A. fib and TIA 5. COVID-19 positive, incidental finding 6. History of kidney transplant. Nephrology following 7. Acute kidney injury on chronic kidney disease 8. Thrombocytopenia 9. Metabolic Encephalopathy PLAN: -Patient may eventually require tracheostomy placement if requiring prolonged intubation -Continue ICU management -Continue supportive care -Continue antibiotics -Receiving tube feedings through OG-tube for nutrition support -DVT prophylaxis lovenox and GI prophylaxis Protonix Physician Starch Cooker note has been reviewed by physician. Signing provider agrees with the documented findings, assessment, and plan of care. Objective - Vital Signs Vital signs: Vital Signs Temp 97.6 F 10/09/21 12:00 Pulse 92 10/09/21 12:00 Resp 31 H 10/09/21 12:00 BP 122/73 10/09/21 12:00 Pulse Ox 96 10/09/21 12:00 Intake & Output 10/08/21 10/09/21 10/09/21 18:59 06:59 18:59 Intake Total 716.728 933.020 690.190 Output Total 1055 1085 945 Balance -338.272 -151.980 -254.810 Weight 72 kg 72 kg Intake: IV 339 453 338 0.9 220 120 Piperacillin-Tazobactam 3 100 100 100 .375 gm In Sodium Chloride 0.9% 100 ml @ 25 mls/hr IVPB Q12H [facility] Rx# :[id number] Pressure Bag 39 33 18 metroNIDAZOLE-NS PMX 500 200 100 100 mg In Saline 1 100ml.bag @ 100 mls/hr IVPB Q6H [facility] Rx#:[id number] Intake, IV Titration 284.728 110.020 290.190 Amount Anidulafungin 100 mg In 100 Sodium Chloride 0.9% 100 ml @ 84 mls/hr IVPB DAILY [facility] Rx#:[id number] Calcium Gluconate 1 gm In 100 Sodium Chloride 0.9% 100 ml @ 100 mls/hr IVPB ONCE ONE Rx#:[id number] Dexmedetomidine/0.9% NaCl 95.568 80.84 38.808 (Pmx) 400 mcg In Empty Bag 1 bag @ 0.2 MCG/KG/HR 3.225 mls/hr IV .Q24H [facility] Rx#:[id number] Lacosamide IV 100 mg In 50 50 Sodium Chloride 0.9% 50 ml @ 100 mls/hr IVPB ONCE STA Rx#:[id number] Norepinephrine 32 mg In 29.160 29.180 1.382 Sodium Chloride 0.9% 218 ml @ 0.05 MCG/KG/MIN 1. 329 mls/hr IV .Q24H [facility] Rx#:[id number] Sodium Chloride 0.9% 1, 110 000 ml @ 10 mls/hr IV . Q24H [facility] Rx#:[id number] Tube Feeding 93 310 62 Other 60 Output: Urine 755 585 345 Stool 300 500 600 Other: Voiding Method Indwelling Catheter Indwelling Catheter ABP, PAP, CO, CI - Last Documented Arterial Blood Pressure 130/66 - Labs CBC & Chem 7: 10/09/21 04:00 10/09/21 10:29 Labs: Abnormal Lab Results - Last 24 Hours (Table) 10/08/21 10/08/21 10/08/21 Range/Units 15:49 17:39 23:37 WBC (3.8-10.6) k/uL RBC (3.80-5.40) m/uL Hgb (11.4-16.0) gm/dL Hct (34.0-46.0) % MCHC (31.0-37.0) g/dL ABG pH (7.35-7.45) ABG HCO3 (21-25) mmol/L ABG Total CO2 (19-24) mmol/L ABG O2 Saturation (94-97) % Potassium 3.1 L 3.1 L (3.5-5.1) mmol/L Chloride (98-107) mmol/L BUN (7-17) mg/dL Creatinine (0.52-1.04) mg/dL Glucose (74-99) mg/dL POC Glucose (mg/dL) 196 H (75-99) mg/dL Calcium (8.4-10.2) mg/dL Ionized Calcium Ashley (4.5-5.3) mg/dL Alkaline Phosphatase (38-126) U/L C-Reactive Protein (<1.0) mg/dL Total Protein (6.3-8.2) g/dL Albumin (3.5-5.0) g/dL 10/08/21 10/09/21 10/09/21 Range/Units 23:45 04:00 04:00 WBC 28.5 H (3.8-10.6) k/uL RBC 3.20 L (3.80-5.40) m/uL Hgb 9.6 L (11.4-16.0) gm/dL Hct 31.1 L (34.0-46.0) % MCHC 30.8 L (31.0-37.0) g/dL ABG pH (7.35-7.45) ABG HCO3 (21-25) mmol/L ABG Total CO2 (19-24) mmol/L ABG O2 Saturation (94-97) % Potassium (3.5-5.1) mmol/L Chloride (98-107) mmol/L BUN (7-17) mg/dL Creatinine (0.52-1.04) mg/dL Glucose (74-99) mg/dL POC Glucose (mg/dL) 207 H (75-99) mg/dL Calcium (8.4-10.2) mg/dL Ionized Calcium Ashley (4.5-5.3) mg/dL Alkaline Phosphatase (38-126) U/L C-Reactive Protein 5.5 H (<1.0) mg/dL Total Protein (6.3-8.2) g/dL Albumin (3.5-5.0) g/dL 10/09/21 10/09/21 10/09/21 Range/Units 04:00 04:57 05:51 WBC (3.8-10.6) k/uL RBC (3.80-5.40) m/uL Hgb (11.4-16.0) gm/dL Hct (34.0-46.0) % MCHC (31.0-37.0) g/dL ABG pH 7.47 H (7.35-7.45) ABG HCO3 30 H (21-25) mmol/L ABG Total CO2 31 H (19-24) mmol/L ABG O2 Saturation 97.2 H (94-97) % Potassium 3.4 L (3.5-5.1) mmol/L Chloride 108 H (98-107) mmol/L BUN 100 H (7-17) mg/dL Creatinine 2.46 H (0.52-1.04) mg/dL Glucose 193 H (74-99) mg/dL POC Glucose (mg/dL) 202 H (75-99) mg/dL Calcium 6.6 L (8.4-10.2) mg/dL Ionized Calcium Ashley 4.1 L (4.5-5.3) mg/dL Alkaline Phosphatase 217 H (38-126) U/L C-Reactive Protein (<1.0) mg/dL Total Protein 3.1 L (6.3-8.2) g/dL Albumin 1.6 L (3.5-5.0) g/dL 10/09/21 10/09/21 Range/Units 10:29 11:36 WBC (3.8-10.6) k/uL RBC (3.80-5.40) m/uL Hgb (11.4-16.0) gm/dL Hct (34.0-46.0) % MCHC (31.0-37.0) g/dL ABG pH (7.35-7.45) ABG HCO3 (21-25) mmol/L ABG Total CO2 (19-24) mmol/L ABG O2 Saturation (94-97) % Potassium 3.2 L (3.5-5.1) mmol/L Chloride (98-107) mmol/L BUN (7-17) mg/dL Creatinine (0.52-1.04) mg/dL Glucose (74-99) mg/dL POC Glucose (mg/dL) 185 H (75-99) mg/dL Calcium (8.4-10.2) mg/dL Ionized Calcium Ashley (4.5-5.3) mg/dL Alkaline Phosphatase (38-126) U/L C-Reactive Protein (<1.0) mg/dL Total Protein (6.3-8.2) g/dL Albumin (3.5-5.0) g/dL Microbiology - Last 24 Hours (Table) 10/02/21 10:51 Blood Culture - Final Blood No Growth after 144 hours 10/02/21 10:30 Blood Culture - Final Blood No Growth after 144 hours
[2021-10-09] MEDS: METOPROLOL TARTRATE 25 MG TAB PO SCH ×2 (16:28→21:23)
[2021-10-09] MEDS: SODIUM CHLORIDE 0.9% 1,000 ML IV SCH (16:29)
--- NOTE | 2021-10-09 16:40 | EEG ---
ELECTROENCEPHALOGRAM REPORT PROCEDURE DATE: 10/09/2021. ELECTROENCEPHALOGRAM BACKED (EEG) REPORT: TECHNIQUE: This is a report from a 2.5 hour inpatient digital EEG performed using the 10/20 international placement system. HISTORY: Bowel perforation, sepsis. The patient is currently intubated. FINDINGS: Recording start time: 10/09/2021 at 12:21 pm. Recording end time: 10/09/2021 at 2:57 pm. EVENTS: During this segment of the patient's imaging recording, no clinical or electrographic seizures were recorded. BACKGROUND: The background activity consisted of poorly modulated 5-6 hertz waveforms with some intermixed delta range slowing. SLEEP: Stage I and brief stage II sleep was noted. ABNORMALITIES: 1. Frequent high amplitude frontally predominant triphasic waves were seen. 2. Diffuse synchronous and asynchronous 3-6 hertz frontally predominant slow wave activity was seen. IMPRESSION: Abnormal EEG. The triphasic waves mentioned above are not epileptiform in nature. Triphasic waves can be seen in the setting of a metabolic encephalopathy. The diffuse synchronous and asynchronous theta delta range slowing, frontally predominant mentioned above is not epileptiform in nature. In combination, these findings indicate moderate diffuse cerebral dysfunction. No seizures were recorded. No epileptiform activity was present. MMODL / IJN: [id number] /
[2021-10-09 17:36] LABS: Glucose,Whole Blood 208 mg/dL (75-99)
[2021-10-09 17:37] LABS: Glucose,Whole Blood 208 mg/dL (75-99)
--- NOTE | 2021-10-09 21:20 | P.PN ---
Subjective Progress Note Date: 10/09/21 Principal diagnosis: Secondary peritonitis from perforated diverticulitis and covid 19 infection Patient is an 81-year-old female who presented to the hospital with abdominal pain. This patient noticed to have perforated sigmoid diverticulitis status post laparotomy, sigmoid colectomy and diverting colostomy. Also had positive COVID test. On today's evaluation, that is 10/09/2021, The patient remains to be afebrile, the patient is hemodynamically stable, FiO2 is stable at 50% no significant purulent secretion through the ET diarrhea or any other changes reported by the nursing staff Objective - Vital Signs Vital signs: Vital Signs Temp 97.6 F 10/09/21 12:00 Pulse 105 H 10/09/21 19:00 Resp 35 H 10/09/21 19:00 BP 104/75 10/09/21 19:00 Pulse Ox 95 10/09/21 19:00 Intake & Output 10/09/21 10/09/21 10/10/21 06:59 18:59 06:59 Intake Total 933.020 976.283 54 Output Total 1085 1227 47 Balance -151.980 -250.717 7 Weight 72 kg 72 kg Intake: IV 453 576 23 0.9 220 240 20 Piperacillin-Tazobactam 3 100 100 .375 gm In Sodium Chloride 0.9% 100 ml @ 25 mls/hr IVPB Q12H [facility] Rx# :[id number] Pressure Bag 33 36 3 metroNIDAZOLE-NS PMX 500 100 200 mg In Saline 1 100ml.bag @ 100 mls/hr IVPB Q6H [facility] Rx#:[id number] Intake, IV Titration 110.020 307.283 Amount Anidulafungin 100 mg In 100 Sodium Chloride 0.9% 100 ml @ 84 mls/hr IVPB DAILY [facility] Rx#:[id number] Calcium Gluconate 1 gm In 100 Sodium Chloride 0.9% 100 ml @ 100 mls/hr IVPB ONCE ONE Rx#:[id number] Dexmedetomidine/0.9% NaCl 80.84 55.901 (Pmx) 400 mcg In Empty Bag 1 bag @ 0.2 MCG/KG/HR 3.225 mls/hr IV .Q24H [facility] Rx#:[id number] Lacosamide IV 100 mg In 50 Sodium Chloride 0.9% 50 ml @ 100 mls/hr IVPB ONCE STA Rx#:[id number] Norepinephrine 32 mg In 29.180 1.382 Sodium Chloride 0.9% 218 ml @ 0.05 MCG/KG/MIN 1. 329 mls/hr IV .Q24H [facility] Rx#:[id number] Tube Feeding 310 93 31 Other 60 Output: Urine 585 627 47 Stool 500 600 Other: Voiding Method Indwelling Catheter Indwelling Catheter ABP, PAP, CO, CI - Last Documented Arterial Blood Pressure 122/64 - Exam General description is an elderly female intubated on the vent. Respiratory system: Unlabored breathing, decreased intensity in breath sounds. No wheeze. Heart S1, S2. Regular rate and rhythm. Abdomen soft, no tenderness. Extremities no edema feet - Labs CBC & Chem 7: 10/09/21 04:00 10/09/21 10:29 Labs: Abnormal Lab Results - Last 24 Hours (Table) 10/08/21 10/08/21 10/09/21 Range/Units 23:37 23:45 04:00 WBC (3.8-10.6) k/uL RBC (3.80-5.40) m/uL Hgb (11.4-16.0) gm/dL Hct (34.0-46.0) % MCHC (31.0-37.0) g/dL ABG pH (7.35-7.45) ABG HCO3 (21-25) mmol/L ABG Total CO2 (19-24) mmol/L ABG O2 Saturation (94-97) % Potassium 3.1 L (3.5-5.1) mmol/L Chloride (98-107) mmol/L BUN (7-17) mg/dL Creatinine (0.52-1.04) mg/dL Glucose (74-99) mg/dL POC Glucose (mg/dL) 207 H (75-99) mg/dL Calcium (8.4-10.2) mg/dL Ionized Calcium Ashley (4.5-5.3) mg/dL Alkaline Phosphatase (38-126) U/L C-Reactive Protein 5.5 H (<1.0) mg/dL Total Protein (6.3-8.2) g/dL Albumin (3.5-5.0) g/dL 10/09/21 10/09/21 10/09/21 Range/Units 04:00 04:00 04:57 WBC 28.5 H (3.8-10.6) k/uL RBC 3.20 L (3.80-5.40) m/uL Hgb 9.6 L (11.4-16.0) gm/dL Hct 31.1 L (34.0-46.0) % MCHC 30.8 L (31.0-37.0) g/dL ABG pH 7.47 H (7.35-7.45) ABG HCO3 30 H (21-25) mmol/L ABG Total CO2 31 H (19-24) mmol/L ABG O2 Saturation 97.2 H (94-97) % Potassium 3.4 L (3.5-5.1) mmol/L Chloride 108 H (98-107) mmol/L BUN 100 H (7-17) mg/dL Creatinine 2.46 H (0.52-1.04) mg/dL Glucose 193 H (74-99) mg/dL POC Glucose (mg/dL) (75-99) mg/dL Calcium 6.6 L (8.4-10.2) mg/dL Ionized Calcium Ashley 4.1 L (4.5-5.3) mg/dL Alkaline Phosphatase 217 H (38-126) U/L C-Reactive Protein (<1.0) mg/dL Total Protein 3.1 L (6.3-8.2) g/dL Albumin 1.6 L (3.5-5.0) g/dL 10/09/21 10/09/21 10/09/21 Range/Units 05:51 10:29 11:36 WBC (3.8-10.6) k/uL RBC (3.80-5.40) m/uL Hgb (11.4-16.0) gm/dL Hct (34.0-46.0) % MCHC (31.0-37.0) g/dL ABG pH (7.35-7.45) ABG HCO3 (21-25) mmol/L ABG Total CO2 (19-24) mmol/L ABG O2 Saturation (94-97) % Potassium 3.2 L (3.5-5.1) mmol/L Chloride (98-107) mmol/L BUN (7-17) mg/dL Creatinine (0.52-1.04) mg/dL Glucose (74-99) mg/dL POC Glucose (mg/dL) 202 H 185 H (75-99) mg/dL Calcium (8.4-10.2) mg/dL Ionized Calcium Ashley (4.5-5.3) mg/dL Alkaline Phosphatase (38-126) U/L C-Reactive Protein (<1.0) mg/dL Total Protein (6.3-8.2) g/dL Albumin (3.5-5.0) g/dL 10/09/21 10/09/21 10/09/21 Range/Units 17:35 17:35 17:35 WBC (3.8-10.6) k/uL RBC (3.80-5.40) m/uL Hgb (11.4-16.0) gm/dL Hct (34.0-46.0) % MCHC (31.0-37.0) g/dL ABG pH (7.35-7.45) ABG HCO3 (21-25) mmol/L ABG Total CO2 (19-24) mmol/L ABG O2 Saturation (94-97) % Potassium (3.5-5.1) mmol/L Chloride (98-107) mmol/L BUN (7-17) mg/dL Creatinine (0.52-1.04) mg/dL Glucose (74-99) mg/dL POC Glucose (mg/dL) 208 H 208 H 208 H (75-99) mg/dL Calcium (8.4-10.2) mg/dL Ionized Calcium Ashley (4.5-5.3) mg/dL Alkaline Phosphatase (38-126) U/L C-Reactive Protein (<1.0) mg/dL Total Protein (6.3-8.2) g/dL Albumin (3.5-5.0) g/dL Assessment and Plan Plan: 1. Patient with acute respiratory failure, multifactorial in this patient who has perforated sigmoid diverticulitis status post diverting colostomy. The pa tient Is currently covered with Zosyn which will be continued 2. Elevated white count more likely related to the steroids as the patient high dose hydrocortisone. , The patient white count is trending down with addition of Eraxis will be continued and will monitor clinical course closely
[2021-10-09 23:52] LABS: Glucose,Whole Blood 175 mg/dL (75-99)
[2021-10-10] MEDS: POTASSIUM BICARBONATE/CIT AC 20 MEQ TABLET.EFF NG-TUBE SCH ×3 (00:58→16:44)
[2021-10-10] MEDS: metroNIDAZOLE-NS PMX 500 MG in SALINE 1 100ML.BAG IVPB SCH ×4 (02:51→21:40)
[2021-10-10 03:30] LABS: Basophils % (A) 0 %; Eosinophils % (A) 0 %; HGB 9.4 gm/dL (11.4-16.0); Hypochromasia Moderate; Lymphocytes # (A) 0.7 k/uL (1.0-4.8); Lymphocytes % (A) 3 %; MCHC 30.3 g/dL (31.0-37.0); MCV 95.8 fL (80.0-100.0); Mean Platelet Volume 13.3; Monocytes # (A) 0.7 k/uL (0-1.0); Monocytes % (A) 3 %; Neutrophils # (A) 21.3 k/uL (1.3-7.7); Neutrophils % (A) 92 %; Platelet Count 292 k/uL (150-450); RBC 3.23 m/uL (3.80-5.40); RDW 15.7 % (11.5-15.5); WBC 23.2 k/uL (3.8-10.6)
[2021-10-10] MEDS: NOREPINEPHRINE 32 MG in SODIUM CHLORIDE 0.9% 218 ML IV SCH (03:33)
[2021-10-10 04:11] LABS: Albumin 1.6 g/dL (3.5-5.0); Calcium 6.9 mg/dL (8.4-10.2); Potassium 3.6 mmol/L (3.5-5.1); Total Bilirubin 0.9 mg/dL (0.2-1.3); Total Protein 3.1 g/dL (6.3-8.2)
[2021-10-10] MEDS: HYDROmorphone 0.5 MG/0.5 ML SYRINGE IVP PRN (04:11)
[2021-10-10] MEDS ORDERED: POTASSIUM BICARBONATE/CIT AC 20 MEQ TABLET.EFF NG-TUBE SCH (05:00)
[2021-10-10 05:22] LABS: Glucose,Whole Blood 203 mg/dL (75-99)
[2021-10-10] MEDS: INSULIN ASPART (NovoLOG) 100 UNIT/ML VIAL SQ SCH ×4 (05:24→23:56)
[2021-10-10 05:42] LABS: ABG Base Excess 4.9 mmol/L; ABG HCO3 29 mmol/L (21-25); ABG Oxygen Saturation 97.3 % (94-97); ABG PCO2 39 mmHg (35-45); ABG PH 7.47 (7.35-7.45); ABG PO2 86 mmHg (83-108); ABG TCO2 30 mmol/L (19-24); Allen Test Performed? Yes
[2021-10-10] MEDS: PIPERACILLIN-TAZOBACTAM 3.375 GM in SODIUM CHLORIDE 0.9% 100 ML IVPB SCH ×2 (08:01→21:40)
[2021-10-10] MEDS: CALCIUM CARBONATE 500 MG CHEWABLE PO SCH ×2 (08:02→21:40)
[2021-10-10] MEDS: HYDROCORTISONE SUCCINATE 100 MG/2 ML VIAL IV SCH ×3 (08:02→23:57)
[2021-10-10] MEDS: PANTOPRAZOLE 40 MG/10 ML VIAL IV SCH (08:02)
[2021-10-10] MEDS: CHLORHEXIDINE GLUCONATE 15 ML CUP MUCOUS MEM SCH ×2 (08:03→21:40)
[2021-10-10] MEDS: cycloSPORINE 25 MG CAP PO SCH ×2 (08:03→21:40)
[2021-10-10] MEDS: METOPROLOL TARTRATE 25 MG TAB PO SCH ×3 (08:03→21:40)
[2021-10-10] MEDS: ANIDULAFUNGIN 100 MG in SODIUM CHLORIDE 0.9% 100 ML IVPB SCH (08:03)
[2021-10-10] MEDS: APIXABAN 2.5 MG TABLET PO SCH ×2 (08:03→21:41)
--- NOTE | 2021-10-10 09:15 | P.PN ---
Subjective Patient is seen in follow-up for acute allograft dysfunction. Intubated. Receiving tube feeds. Off Levophed. Nonoliguric. Blood pressure stable. Sodium level CXLVIII today. Vital signs are stable. General: Intubated. HEENT: Head exam is unremarkable. LUNGS: Breath sounds decreased. HEART: Irregular rate and rhythm. ABDOMEN: No distention. EXTREMITITES: 1+ edema. Objective - Vital Signs Vital signs: Vital Signs Temp 99.0 F 10/10/21 08:00 Pulse 112 H 10/10/21 09:00 Resp 32 H 10/10/21 09:00 BP 94/67 10/10/21 09:00 Pulse Ox 95 10/10/21 09:00 Intake & Output 10/09/21 10/10/21 10/10/21 18:59 06:59 18:59 Intake Total 976.283 938 192 Output Total 1227 992 205 Balance -250.717 -54 -13 Weight 72 kg 72.2 kg Intake: IV 576 476 69 0.9 240 240 60 Piperacillin-Tazobactam 3 100 100 .375 gm In Sodium Chloride 0.9% 100 ml @ 25 mls/hr IVPB Q12H [facility] Rx# :[id number] Pressure Bag 36 36 9 metroNIDAZOLE-NS PMX 500 200 100 mg In Saline 1 100ml.bag @ 100 mls/hr IVPB Q6H [facility] Rx#:[id number] Intake, IV Titration 307.283 Amount Anidulafungin 100 mg In 100 Sodium Chloride 0.9% 100 ml @ 84 mls/hr IVPB DAILY [facility] Rx#:[id number] Calcium Gluconate 1 gm In 100 Sodium Chloride 0.9% 100 ml @ 100 mls/hr IVPB ONCE ONE Rx#:[id number] Dexmedetomidine/0.9% NaCl 55.901 (Pmx) 400 mcg In Empty Bag 1 bag @ 0.2 MCG/KG/HR 3.225 mls/hr IV .Q24H [facility] Rx#:[id number] Lacosamide IV 100 mg In 50 Sodium Chloride 0.9% 50 ml @ 100 mls/hr IVPB ONCE STA Rx#:[id number] Norepinephrine 32 mg In 1.382 Sodium Chloride 0.9% 218 ml @ 0.05 MCG/KG/MIN 1. 329 mls/hr IV .Q24H [facility] Rx#:[id number] Tube Feeding 93 372 93 Other 90 30 Output: Urine 627 692 205 Stool 600 300 Other: Voiding Method Indwelling Catheter Indwelling Catheter Indwelling Catheter ABP, PAP, CO, CI - Last Documented Arterial Blood Pressure 113/57 - Labs CBC & Chem 7: 10/10/21 03:00 10/10/21 03:00 Labs: Abnormal Lab Results - Last 24 Hours (Table) 10/09/21 10/09/21 10/09/21 Range/Units 04:00 10:29 11:36 WBC (3.8-10.6) k/uL RBC (3.80-5.40) m/uL Hgb (11.4-16.0) gm/dL Hct (34.0-46.0) % MCHC (31.0-37.0) g/dL RDW (11.5-15.5) % Neutrophils # (1.3-7.7) k/uL Lymphocytes # (1.0-4.8) k/uL ABG pH (7.35-7.45) ABG HCO3 (21-25) mmol/L ABG Total CO2 (19-24) mmol/L ABG O2 Saturation (94-97) % Sodium (137-145) mmol/L Potassium 3.2 L (3.5-5.1) mmol/L Chloride (98-107) mmol/L BUN (7-17) mg/dL Creatinine (0.52-1.04) mg/dL Glucose (74-99) mg/dL POC Glucose (mg/dL) 185 H (75-99) mg/dL Calcium (8.4-10.2) mg/dL AST (14-36) U/L Alkaline Phosphatase (38-126) U/L Total Protein (6.3-8.2) g/dL Albumin (3.5-5.0) g/dL Procalcitonin 13.70 H (0.02-0.09) ng/mL 10/09/21 10/09/21 10/09/21 Range/Units 17:35 17:35 17:35 WBC (3.8-10.6) k/uL RBC (3.80-5.40) m/uL Hgb (11.4-16.0) gm/dL Hct (34.0-46.0) % MCHC (31.0-37.0) g/dL RDW (11.5-15.5) % Neutrophils # (1.3-7.7) k/uL Lymphocytes # (1.0-4.8) k/uL ABG pH (7.35-7.45) ABG HCO3 (21-25) mmol/L ABG Total CO2 (19-24) mmol/L ABG O2 Saturation (94-97) % Sodium (137-145) mmol/L Potassium (3.5-5.1) mmol/L Chloride (98-107) mmol/L BUN (7-17) mg/dL Creatinine (0.52-1.04) mg/dL Glucose (74-99) mg/dL POC Glucose (mg/dL) 208 H 208 H 208 H (75-99) mg/dL Calcium (8.4-10.2) mg/dL AST (14-36) U/L Alkaline Phosphatase (38-126) U/L Total Protein (6.3-8.2) g/dL Albumin (3.5-5.0) g/dL Procalcitonin (0.02-0.09) ng/mL 10/09/21 10/09/21 10/10/21 Range/Units 22:00 23:38 03:00 WBC 23.2 H (3.8-10.6) k/uL RBC 3.23 L (3.80-5.40) m/uL Hgb 9.4 L (11.4-16.0) gm/dL Hct 31.0 L (34.0-46.0) % MCHC 30.3 L (31.0-37.0) g/dL RDW 15.7 H (11.5-15.5) % Neutrophils # 21.3 H (1.3-7.7) k/uL Lymphocytes # 0.7 L (1.0-4.8) k/uL ABG pH (7.35-7.45) ABG HCO3 (21-25) mmol/L ABG Total CO2 (19-24) mmol/L ABG O2 Saturation (94-97) % Sodium (137-145) mmol/L Potassium 2.9 L (3.5-5.1) mmol/L Chloride (98-107) mmol/L BUN (7-17) mg/dL Creatinine (0.52-1.04) mg/dL Glucose (74-99) mg/dL POC Glucose (mg/dL) 175 H (75-99) mg/dL Calcium (8.4-10.2) mg/dL AST (14-36) U/L Alkaline Phosphatase (38-126) U/L Total Protein (6.3-8.2) g/dL Albumin (3.5-5.0) g/dL Procalcitonin (0.02-0.09) ng/mL 10/10/21 10/10/21 10/10/21 Range/Units 03:00 05:21 05:38 WBC (3.8-10.6) k/uL RBC (3.80-5.40) m/uL Hgb (11.4-16.0) gm/dL Hct (34.0-46.0) % MCHC (31.0-37.0) g/dL RDW (11.5-15.5) % Neutrophils # (1.3-7.7) k/uL Lymphocytes # (1.0-4.8) k/uL ABG pH 7.47 H (7.35-7.45) ABG HCO3 29 H (21-25) mmol/L ABG Total CO2 30 H (19-24) mmol/L ABG O2 Saturation 97.3 H (94-97) % Sodium 148 H (137-145) mmol/L Potassium (3.5-5.1) mmol/L Chloride 111 H (98-107) mmol/L BUN 105 H* (7-17) mg/dL Creatinine 2.27 H (0.52-1.04) mg/dL Glucose 190 H (74-99) mg/dL POC Glucose (mg/dL) 203 H (75-99) mg/dL Calcium 6.9 L (8.4-10.2) mg/dL AST 37 H (14-36) U/L Alkaline Phosphatase 210 H (38-126) U/L Total Protein 3.1 L (6.3-8.2) g/dL Albumin 1.6 L (3.5-5.0) g/dL Procalcitonin (0.02-0.09) ng/mL Assessment and Plan Plan: Assessment: 1. 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 Baseline creatinine near 1 and peaked at 3.5 to this admission - 2.27 today. No hydronephrosis noted on CAT scan. 2. Status post renal transplant in 2017 at [facility]. 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 3. Metabolic acidosis secondary to acute kidney injury and lactic acidosis. Resolved. Then became alkalotic - improved with Diamox. 4. Pneumoperitoneum s/p exploratory laparotomy, right oophorectomy and colostomy this admission. 5. Septic shock, off levophed. 6. COVID-19 infection. 7. Acute hypoxic respiratory failure. 8. Volume overload. Improved. 9. Hypocalcemia secondary to acute kidney injury maintained on vitamin D supplementation and Tums. PTH 214. Vitamin D level 35.9. Corrected calcium for albumin is 8.7. 10. Hypokalemia from diuresis and poor intake. Being replaced. 11. Hypernatremia from lack of oral water intake. 12. A. fib with RVR on metoprolol and anticoagulation. Plan: Maintain tube feeds. Add water flushes 300 mL every 6 hours. Potassium being replaced. She is currently on IV hydrocortisone. Cyclosporine resumed at low dose on 10/07/2021. Continue to monitor renal function and urine output. Wean FiO2. 25 g IV albumin 2 doses today.
--- NOTE | 2021-10-10 09:17 | XR ---
EXAMINATION TYPE: XR chest 1V portable DATE OF EXAM: 10/10/2021 COMPARISON: Chest x-ray 10/09/2021 HISTORY: Covid infection, intubated TECHNIQUE: Single frontal view of the chest is obtained. FINDINGS: Endotracheal tube, NG tube, right jugular central venous catheter are overlying appropriat e positions, central venous catheter tip is within the right atrium. Basilar increased attenuation is present, the left hemidiaphragm is obscured, right hemidiaphragm partially obscured. No evident pneu mothorax, patient is rotated. Cardiac mediastinal silhouette is stable. Aorta is dense. There are ove rlying artifacts. IMPRESSION: Findings could be indicative of underlying pneumonia, difficult to exclude effusion, jayne ma, follow-up recommended.
[2021-10-10] MEDS: LACOSAMIDE IV 50 MG in SODIUM CHLORIDE 0.9% 50 ML IVPB SCH ×2 (09:30→21:40)
[2021-10-10] MEDS: ALBUMIN HUMAN 25% 50 ML in EMPTY BAG 1 BAG IVPB SCH ×2 (09:38→20:12)
--- NOTE | 2021-10-10 11:00 | P.PN ---
Subjective Progress Note Date: 10/10/21 The patient is seen at bedside and per nurse no improvement in neurological status. Precedex was stopped yesterday in afternoon. Objective - Vital Signs Vital signs: Vital Signs Temp 99.0 F 10/10/21 08:00 Pulse 106 H 10/10/21 10:00 Resp 31 H 10/10/21 10:00 BP 96/68 10/10/21 10:00 Pulse Ox 95 10/10/21 10:00 Intake & Output 10/09/21 10/10/21 10/10/21 18:59 06:59 18:59 Intake Total 976.283 938 646 Output Total 1227 992 280 Balance -250.717 -54 366 Weight 72 kg 72.2 kg Intake: IV 576 476 442 0.9 240 240 80 Albumin Human 25% 50 ml 50 In Empty Bag 1 bag @ 50 mls/hr IVPB BID [facility] Rx#: [id number] Anidulafungin 100 mg In 100 Sodium Chloride 0.9% 100 ml @ 84 mls/hr IVPB DAILY [facility] Rx#:[id number] Piperacillin-Tazobactam 3 100 100 100 .375 gm In Sodium Chloride 0.9% 100 ml @ 25 mls/hr IVPB Q12H [facility] Rx# :[id number] Pressure Bag 36 36 12 metroNIDAZOLE-NS PMX 500 200 100 100 mg In Saline 1 100ml.bag @ 100 mls/hr IVPB Q6H [facility] Rx#:[id number] Intake, IV Titration 307.283 50 Amount Albumin Human 25% 50 ml 50 In Empty Bag 1 bag @ 50 mls/hr IVPB BID [facility] Rx#: [id number] Anidulafungin 100 mg In 100 Sodium Chloride 0.9% 100 ml @ 84 mls/hr IVPB DAILY [facility] Rx#:[id number] Calcium Gluconate 1 gm In 100 Sodium Chloride 0.9% 100 ml @ 100 mls/hr IVPB ONCE ONE Rx#:[id number] Dexmedetomidine/0.9% NaCl 55.901 (Pmx) 400 mcg In Empty Bag 1 bag @ 0.2 MCG/KG/HR 3.225 mls/hr IV .Q24H [facility] Rx#:[id number] Lacosamide IV 100 mg In 50 Sodium Chloride 0.9% 50 ml @ 100 mls/hr IVPB ONCE STA Rx#:[id number] Norepinephrine 32 mg In 1.382 Sodium Chloride 0.9% 218 ml @ 0.05 MCG/KG/MIN 1. 329 mls/hr IV .Q24H [facility] Rx#:[id number] Tube Feeding 93 372 124 Other 90 30 Output: Urine 627 692 280 Stool 600 300 Other: Voiding Method Indwelling Catheter Indwelling Catheter Indwelling Catheter ABP, PAP, CO, CI - Last Documented Arterial Blood Pressure 101/59 - Exam GENERAL: The patient is lying in bed and does not seem in acute distress. INTEGUMENTARY: Edema throughout (seems predominately uppers). NEUROLOGICAL: Limited since because of her condition. Higher mental function: The patient is comatose. Patient is not verbally repsponsive or following commands. Cranial nerves: Minimally opens eyes to painful stimuli. Primary gaze is midline. The pupils are round, equal (3mm) and reactive to light. No facial weakness. Patient would grimace face to painful stimuli. Has positive gag reflex. Is breathing over the vent. Motor: The strength is unable to assess. But would grimace face to painful stimuli throughout. Normal bulk. No spontaneous movement noted. Cerebellum: Could not assess. Sensation: Light touch could not be assessed but grimaces to painful stimuli throughout.. Reflexes (right/left): 1+ throughout.. Plantars are mute bilaterally. WORK-UP: Potassium 0.2, sodium is 142, calcium 66.4, ionized calcium of 4.0 and was as low as 3.0, phosphorus is 5.4 and was as high as 8.6 during this hospital stay. AST of 35 and ALT of 11. Urine culture was negative for urinary tract infection. Blood cultures are no growth after 120 days Routine EEG on 10/07/2020 is abnormal. The background slowing is suggestive of moderate to severe encephalopathy. There is no focal slowing, epileptiform discharges or seizure on the EEG. 2.5hour EEG on 10/08/21: Is reported as abnormal 2.5 hour EEG. No clinical or electrographic seizures were reported. No epileptiform activity was present. This was predominantly a sleep EEG. During rare periods of relatively maximal arousal, diffuse theta range slowing was seen which was not epileptiform in nature. These findings indicate moderate diffuse cerebral dysfunction which may be in part due to medication effect. 2.5hour EEG on 10/09/2021: Is reported as abnormal EEG. The triphasic waves mentioned above are not epileptiform in nature. Triphasic waves can be seen in the setting of metabolic encephalopathy. The diffuse synchronous and asynchronous theta and delta range slowing, frontally predominant mentioned above is not epileptiform in nature. In combination, these findings indicate moderate diffuse cerebral dysfunction. No seizure were recorded. No epileptiform activity the was present. CT Brain w/o: Is reported as cerebral atrophy and chronic small vessel ischemia. No acute intracranial abnormality. - Labs CBC & Chem 7: 10/10/21 03:00 10/10/21 10:00 Labs: Abnormal Lab Results - Last 24 Hours (Table) 10/09/21 10/09/21 10/09/21 Range/Units 04:00 10:29 11:36 WBC (3.8-10.6) k/uL RBC (3.80-5.40) m/uL Hgb (11.4-16.0) gm/dL Hct (34.0-46.0) % MCHC (31.0-37.0) g/dL RDW (11.5-15.5) % Neutrophils # (1.3-7.7) k/uL Lymphocytes # (1.0-4.8) k/uL ABG pH (7.35-7.45) ABG HCO3 (21-25) mmol/L ABG Total CO2 (19-24) mmol/L ABG O2 Saturation (94-97) % Sodium (137-145) mmol/L Potassium 3.2 L (3.5-5.1) mmol/L Chloride (98-107) mmol/L BUN (7-17) mg/dL Creatinine (0.52-1.04) mg/dL Glucose (74-99) mg/dL POC Glucose (mg/dL) 185 H (75-99) mg/dL Calcium (8.4-10.2) mg/dL AST (14-36) U/L Alkaline Phosphatase (38-126) U/L Total Protein (6.3-8.2) g/dL Albumin (3.5-5.0) g/dL Procalcitonin 13.70 H (0.02-0.09) ng/mL 10/09/21 10/09/21 10/09/21 Range/Units 17:35 17:35 17:35 WBC (3.8-10.6) k/uL RBC (3.80-5.40) m/uL Hgb (11.4-16.0) gm/dL Hct (34.0-46.0) % MCHC (31.0-37.0) g/dL RDW (11.5-15.5) % Neutrophils # (1.3-7.7) k/uL Lymphocytes # (1.0-4.8) k/uL ABG pH (7.35-7.45) ABG HCO3 (21-25) mmol/L ABG Total CO2 (19-24) mmol/L ABG O2 Saturation (94-97) % Sodium (137-145) mmol/L Potassium (3.5-5.1) mmol/L Chloride (98-107) mmol/L BUN (7-17) mg/dL Creatinine (0.52-1.04) mg/dL Glucose (74-99) mg/dL POC Glucose (mg/dL) 208 H 208 H 208 H (75-99) mg/dL Calcium (8.4-10.2) mg/dL AST (14-36) U/L Alkaline Phosphatase (38-126) U/L Total Protein (6.3-8.2) g/dL Albumin (3.5-5.0) g/dL Procalcitonin (0.02-0.09) ng/mL 10/09/21 10/09/21 10/10/21 Range/Units 22:00 23:38 03:00 WBC 23.2 H (3.8-10.6) k/uL RBC 3.23 L (3.80-5.40) m/uL Hgb 9.4 L (11.4-16.0) gm/dL Hct 31.0 L (34.0-46.0) % MCHC 30.3 L (31.0-37.0) g/dL RDW 15.7 H (11.5-15.5) % Neutrophils # 21.3 H (1.3-7.7) k/uL Lymphocytes # 0.7 L (1.0-4.8) k/uL ABG pH (7.35-7.45) ABG HCO3 (21-25) mmol/L ABG Total CO2 (19-24) mmol/L ABG O2 Saturation (94-97) % Sodium (137-145) mmol/L Potassium 2.9 L (3.5-5.1) mmol/L Chloride (98-107) mmol/L BUN (7-17) mg/dL Creatinine (0.52-1.04) mg/dL Glucose (74-99) mg/dL POC Glucose (mg/dL) 175 H (75-99) mg/dL Calcium (8.4-10.2) mg/dL AST (14-36) U/L Alkaline Phosphatase (38-126) U/L Total Protein (6.3-8.2) g/dL Albumin (3.5-5.0) g/dL Procalcitonin (0.02-0.09) ng/mL 10/10/21 10/10/21 10/10/21 Range/Units 03:00 05:21 05:38 WBC (3.8-10.6) k/uL RBC (3.80-5.40) m/uL Hgb (11.4-16.0) gm/dL Hct (34.0-46.0) % MCHC (31.0-37.0) g/dL RDW (11.5-15.5) % Neutrophils # (1.3-7.7) k/uL Lymphocytes # (1.0-4.8) k/uL ABG pH 7.47 H (7.35-7.45) ABG HCO3 29 H (21-25) mmol/L ABG Total CO2 30 H (19-24) mmol/L ABG O2 Saturation 97.3 H (94-97) % Sodium 148 H (137-145) mmol/L Potassium (3.5-5.1) mmol/L Chloride 111 H (98-107) mmol/L BUN 105 H* (7-17) mg/dL Creatinine 2.27 H (0.52-1.04) mg/dL Glucose 190 H (74-99) mg/dL POC Glucose (mg/dL) 203 H (75-99) mg/dL Calcium 6.9 L (8.4-10.2) mg/dL AST 37 H (14-36) U/L Alkaline Phosphatase 210 H (38-126) U/L Total Protein 3.1 L (6.3-8.2) g/dL Albumin 1.6 L (3.5-5.0) g/dL Procalcitonin (0.02-0.09) ng/mL Assessment and Plan Assessment: Altered mental status due to multi-factorial: Metabolic encephalopathy with acute kidney insufficiency, electrolyte abnormality and COVID-19 pneumonia Septic shock due to abdominal sepsis Acute COVID-19 pneumonia Acute pneumoperitoneum and abdominal sepsis with perforation of sigmoid r equiring surgery, colostomy Acute hypoxia worsens her failure and is intubated on the ventilator Chronic kidney disease--- trending down Chronic atrial fibrillation and was on Eliquis at home History of kidney addressed rotation on immunosuppressant therapy (CellCept, prednisone and cyclosporine) History of breast cancer/lobular carcinoma in situ requiring surgery only Plan: * Routine EEG on 10/07/2020 is abnormal. The background slowing is suggestive of moderate to severe encephalopathy. There is no focal slowing, epileptiform discharges or seizure on the EEG. * 2.5hour EEG on 10/08/21: Is reported as abnormal 2.5 hour EEG. No clinical or electrographic seizures were reported. No epileptiform activity was present. This was predominantly a sleep EEG. During rare periods of relatively maximal arousal, diffuse theta range slowing was seen which was not epileptiform in nature. These findings indicate moderate diffuse cerebral dysfunction which may be in part due to medication effect. I personally felt ?frontal sharp and wave was noted over right>left. * Therefore, I started the patient on prophylactic Vimpat 50mg bid IV. * 2.5hour EEG on 10/09/2021: Is reported as abnormal EEG. The triphasic waves mentioned above are not epileptiform in nature. Triphasic waves can be seen in the setting of metabolic encephalopathy. The diffuse synchronous and asynchronous theta and delta range slowing, frontally predominant mentioned above is not epileptiform in nature. In combination, these findings indicate moderate diffuse cerebral dysfunction. No seizure were recorded. No epileptiform activity the was present. * CT head 10/07/2021: Is reported as cerebral atrophy and chronic small vessel ischemia. No acute intracranial abnormality. * Every 2 neurochecks * Nephrology is on board * Infection disease team is on board * Cardiology is on board for A. fib. Once she is stable recommend restarting the patient anticoagulation. * We'll defer the rest of medical management to the primary team. * Condition: Is critical and appears poor. The plan is discussed with the nurse. I spoke with the patient's daughter (Milana) via phone and updated her on her neurological status. She stated she wants to talk to her other siblings before making any decisions. Esdras Swift M.D. Neuro-Hospitalist. Time with Patient: Less than 30
[2021-10-10 11:43] LABS: Glucose,Whole Blood 217 mg/dL (75-99)
--- NOTE | 2021-10-10 12:07 | P.PN ---
Subjective Progress Note Date: 10/10/21 The patient is a 81-year-old female admitted with bowel perforation. Patient is mechanically ventilated for acute hypoxic respiratory failure. Patient has a history of permanent atrial fibrillation on Eliquis, TIA, hypertension, dyslipidemia, kidney transplant x2 on immunosuppressive therapy. Patient is mechanically ventilated resting in bed, with no signs of acute distress. She continues to remain in atrial fibrillation with a controlled ventricle rate. Patient's heart rate has been maintaining in the 90s. She will bounce up to 120s when she is due for her Lopressor. Lopressor was changed yesterday to 25 mg 3 times a day. Patient's sedation was turned off yesterday. She is noted breathing over the vent. However she does not respond to voice, touch, or withdrawal to pain. Patient's levo has been turned off and she is maintaining her own blood pressure. Patient is getting albumin today due to increased edema. She remains on Eliquis for anticoagulation. blood pressure 95/66 heart rate 95, respirations 29, mechanically ventilated, afebrile. Diagnostics: EKG shows patient remains in atrial fibrillation with an controlled ventricle response. Chest x-ray is indicative pneumonia, difficult to exclude suffusion, edema Labs reviewedhemoglobin 9.4, platelet count 292, sodium 148, potassium 3.6, BUN 105, creatinine 2.27, AST 37, ALT 9, albumin 1.6 Objective - Vital Signs Vital signs: Vital Signs Temp 99.0 F 10/10/21 08:00 Pulse 95 10/10/21 11:00 Resp 29 H 10/10/21 11:00 BP 95/66 10/10/21 11:00 Pulse Ox 94 L 10/10/21 11:00 Intake & Output 10/09/21 10/10/21 10/10/21 18:59 06:59 18:59 Intake Total 976.283 938 850 Output Total 1227 992 340 Balance -250.717 -54 510 Weight 72 kg 72.2 kg Intake: IV 576 476 465 0.9 240 240 100 Albumin Human 25% 50 ml 50 In Empty Bag 1 bag @ 50 mls/hr IVPB BID [facility] Rx#: [id number] Anidulafungin 100 mg In 100 Sodium Chloride 0.9% 100 ml @ 84 mls/hr IVPB DAILY [facility] Rx#:[id number] Piperacillin-Tazobactam 3 100 100 100 .375 gm In Sodium Chloride 0.9% 100 ml @ 25 mls/hr IVPB Q12H [facility] Rx# :[id number] Pressure Bag 36 36 15 metroNIDAZOLE-NS PMX 500 200 100 100 mg In Saline 1 100ml.bag @ 100 mls/hr IVPB Q6H [facility] Rx#:[id number] Intake, IV Titration 307.283 50 Amount Albumin Human 25% 50 ml 50 In Empty Bag 1 bag @ 50 mls/hr IVPB BID [facility] Rx#: [id number] Anidulafungin 100 mg In 100 Sodium Chloride 0.9% 100 ml @ 84 mls/hr IVPB DAILY [facility] Rx#:[id number] Calcium Gluconate 1 gm In 100 Sodium Chloride 0.9% 100 ml @ 100 mls/hr IVPB ONCE ONE Rx#:[id number] Dexmedetomidine/0.9% NaCl 55.901 (Pmx) 400 mcg In Empty Bag 1 bag @ 0.2 MCG/KG/HR 3.225 mls/hr IV .Q24H [facility] Rx#:[id number] Lacosamide IV 100 mg In 50 Sodium Chloride 0.9% 50 ml @ 100 mls/hr IVPB ONCE [facility] Rx#:[id number] Norepinephrine 32 mg In 1.382 Sodium Chloride 0.9% 218 ml @ 0.05 MCG/KG/MIN 1. 329 mls/hr IV .Q24H [facility] Rx#:[id number] Tube Feeding 93 372 155 Other 90 180 Output: Urine 627 692 340 Stool 600 300 Other: Voiding Method Indwelling Catheter Indwelling Catheter Indwelling Catheter ABP, PAP, CO, CI - Last Documented Arterial Blood Pressure 112/60 - Exam Physical exam limited to COVID positive PHYSICAL EXAM: VITAL SIGNS: Reviewed. GENERAL: Well-developed in no acute distress. HEENT: Head is normocephalic. NECK: Supple. No JVD or thyromegaly RESPIRATORY: Respirations even and unlabored. Patient mechanically ventilated - Labs CBC & Chem 7: 10/10/21 03:00 10/10/21 10:00 Labs: Abnormal Lab Results - Last 24 Hours (Table) 10/09/21 10/09/21 10/09/21 Range/Units 04:00 10:29 11:36 WBC (3.8-10.6) k/uL RBC (3.80-5.40) m/uL Hgb (11.4-16.0) gm/dL Hct (34.0-46.0) % MCHC (31.0-37.0) g/dL RDW (11.5-15.5) % Neutrophils # (1.3-7.7) k/uL Lymphocytes # (1.0-4.8) k/uL ABG pH (7.35-7.45) ABG HCO3 (21-25) mmol/L ABG Total CO2 (19-24) mmol/L ABG O2 Saturation (94-97) % Sodium (137-145) mmol/L Potassium 3.2 L (3.5-5.1) mmol/L Chloride (98-107) mmol/L BUN (7-17) mg/dL Creatinine (0.52-1.04) mg/dL Glucose (74-99) mg/dL POC Glucose (mg/dL) 185 H (75-99) mg/dL Calcium (8.4-10.2) mg/dL AST (14-36) U/L Alkaline Phosphatase (38-126) U/L Total Protein (6.3-8.2) g/dL Albumin (3.5-5.0) g/dL Procalcitonin 13.70 H (0.02-0.09) ng/mL 10/09/21 10/09/21 10/09/21 Range/Units 17:35 17:35 17:35 WBC (3.8-10.6) k/uL RBC (3.80-5.40) m/uL Hgb (11.4-16.0) gm/dL Hct (34.0-46.0) % MCHC (31.0-37.0) g/dL RDW (11.5-15.5) % Neutrophils # (1.3-7.7) k/uL Lymphocytes # (1.0-4.8) k/uL ABG pH (7.35-7.45) ABG HCO3 (21-25) mmol/L ABG Total CO2 (19-24) mmol/L ABG O2 Saturation (94-97) % Sodium (137-145) mmol/L Potassium (3.5-5.1) mmol/L Chloride (98-107) mmol/L BUN (7-17) mg/dL Creatinine (0.52-1.04) mg/dL Glucose (74-99) mg/dL POC Glucose (mg/dL) 208 H 208 H 208 H (75-99) mg/dL Calcium (8.4-10.2) mg/dL AST (14-36) U/L Alkaline Phosphatase (38-126) U/L Total Protein (6.3-8.2) g/dL Albumin (3.5-5.0) g/dL Procalcitonin (0.02-0.09) ng/mL 10/09/21 10/09/21 10/10/21 Range/Units 22:00 23:38 03:00 WBC 23.2 H (3.8-10.6) k/uL RBC 3.23 L (3.80-5.40) m/uL Hgb 9.4 L (11.4-16.0) gm/dL Hct 31.0 L (34.0-46.0) % MCHC 30.3 L (31.0-37.0) g/dL RDW 15.7 H (11.5-15.5) % Neutrophils # 21.3 H (1.3-7.7) k/uL Lymphocytes # 0.7 L (1.0-4.8) k/uL ABG pH (7.35-7.45) ABG HCO3 (21-25) mmol/L ABG Total CO2 (19-24) mmol/L ABG O2 Saturation (94-97) % Sodium (137-145) mmol/L Potassium 2.9 L (3.5-5.1) mmol/L Chloride (98-107) mmol/L BUN (7-17) mg/dL Creatinine (0.52-1.04) mg/dL Glucose (74-99) mg/dL POC Glucose (mg/dL) 175 H (75-99) mg/dL Calcium (8.4-10.2) mg/dL AST (14-36) U/L Alkaline Phosphatase (38-126) U/L Total Protein (6.3-8.2) g/dL Albumin (3.5-5.0) g/dL Procalcitonin (0.02-0.09) ng/mL 10/10/21 10/10/21 10/10/21 Range/Units 03:00 05:21 05:38 WBC (3.8-10.6) k/uL RBC (3.80-5.40) m/uL Hgb (11.4-16.0) gm/dL Hct (34.0-46.0) % MCHC (31.0-37.0) g/dL RDW (11.5-15.5) % Neutrophils # (1.3-7.7) k/uL Lymphocytes # (1.0-4.8) k/uL ABG pH 7.47 H (7.35-7.45) ABG HCO3 29 H (21-25) mmol/L ABG Total CO2 30 H (19-24) mmol/L ABG O2 Saturation 97.3 H (94-97) % Sodium 148 H (137-145) mmol/L Potassium (3.5-5.1) mmol/L Chloride 111 H (98-107) mmol/L BUN 105 H* (7-17) mg/dL Creatinine 2.27 H (0.52-1.04) mg/dL Glucose 190 H (74-99) mg/dL POC Glucose (mg/dL) 203 H (75-99) mg/dL Calcium 6.9 L (8.4-10.2) mg/dL AST 37 H (14-36) U/L Alkaline Phosphatase 210 H (38-126) U/L Total Protein 3.1 L (6.3-8.2) g/dL Albumin 1.6 L (3.5-5.0) g/dL Procalcitonin (0.02-0.09) ng/mL Assessment and Plan Assessment: Atrial fibrillation with a controlled ventricular rate Acute hypoxic respiratory failure secondary to Covid requiring mechanical ventilation Septic shock secondary to acute abdominal pneumoperitoneum Improved thrombocytopenia Hypokalemia History of hypertension History of hyperlipidemia History of kidney transplant containing on immunosuppressants Plan: Continue lopressor to 25mg TID for heart rate control JERSON is not advised at this time, neurology is in agreement Continue with Eliquis for anticoagulation due to improved thrombocytopenia, continue to monitor platelet count closely Continue all other current cardiac medications Continue with telemetry monitoring Replace potassium per protocol Further recommendations based on clinical course. The above impression and plan of care have been discussed and directed by the signing physician. Macy Orosco, nurse practitioner, acting as scribe for signing physician.
--- NOTE | 2021-10-10 13:54 | P.PN ---
Subjective Progress Note Date: 10/10/21 Principal diagnosis: Acute pneumoperitoneum secondary to acute sigmoid colon perforation status post colectomy and diverting colostomy postoperative day #9 10/05 2021, the patient is postop day #4. Remains on a mechanical ventilator. He remains sedated with propofol and the patient is currently on 15 mcg/kg per minute. She is adequately sedated for now. She remains on a mechanical ventilator on assist control mode at the rate of 26, tidal volume of 300, FiO2 of 40% with a PEEP of 5. The blood gas from today shows a father respiratory alkalosis and metabolic alkalosis. PH is at 7.54 with a pCO2 of 37 and pO2 of 80. Chest x-ray showing some atelectatic changes and small effusion the lung bases bilaterally. ET tube is in a good location. There is some mild increase in interstitial markings. Note that the patient is a case of Coumadin nightly related pneumonia also. Hemodynamically, the patient is doing better. She has been weaned off on norepinephrine which is currently running at 0.02 microvascular kilogram per minute and vasopressin remains on a physiologic dose. Her renal function continues to improve in the creatinine is down to 2.7. The patient was also having issues with hypocalcemia. She required calcium placement and her serum calcium total currently is up to 6.3. Ionized calcium is pending for now. Her serum albumin was down to 1.6. Her colostomy was functional and she was started on enteral feeding for nutritional support and she is currently on Nepro at the rate of 23 mL an hour. Another concern is her thrombocytopenia as the patient developed consumptive thrombocytopenia. She is currently on anticoagulation with Eliquis. No bleeding. I am concerned about the potential of bleeding this patient I'm recommending discontinuation of the Eliquis for now. We'll continue the combination of Zosyn and Flagyl as broad-spectrum antibiotic coverage. Cultures of been all negative. Bowel sounds are still hypoactive. The patient will need obviously a sedation holiday today and her candidacy for further weaning will be assessed. 10/06 2021, the patient is still on a mechanical ventilator. The patient is postop day #5. This morning, the patient is off sedation. Once off propofol, the patient's blood pressures improved and the patient is also off pressors. Meanwhile, she is still quite sedated. She is not showing adequate neurological recovery or alertness at this point in time and her mental status is being monitored. She remains on a mechanical ventilator. She had an assist-control at the rate of 26, tidal volume of 300, FiO2 of 40% with a PEEP of 5. The blood gases from today shows a pH of 7.52 with a pCO2 of 41 and pO2 of 66. Chest x- ray shows small bilateral pleural effusions. ET tube is in a good location. There is improved aeration bilaterally. Meanwhile, as mentioned, the patient is off pressors. Platelet counts have improved up to 5072. The white cell count is at 28 with a hemoglobin 11.9.5. Renal function shows a creatinine of 2.6 which is stable. BUN is at 61. Sodium is at 138. The patient remains on examination Zosyn and Flagyl. IV fluids are running at the rate of 20 mL an h our. The patient is off pressors. The patient is on stress dose hydrocortisone regarding her chronic steroid use. In terms of feeding, the patient was started on Nepro which is running at the rate of 23 mL an hour. The patient is producing stool at this point in time. Her cardiac rhythm is still in atrial fibrillation. The rate is controlled. We have stopped anticoagulation due to concern of underlying thrombocytopenia. Her thrombocytopenia was essentially consumptive related to sepsis. Patient was reevaluated today on 10/07/2021, remains in the ICU, intubated and mechanically ventilated, patient is on assist control rate of 16, volume 300 FiO2 40% and PEEP of 5. ABG showed a pO2 of 56, pCO2 33, pH of 7.59. Patient is off sedation now for the last 2 days, and does not seem to be making any neurological improvement, she is hemodynamically stable, she is in atrial fibrillation with a rate of 1:15, she is on Lovenox, the dose was increased to 30 mg subcu twice a day. Patient seems to be hypercapnic, and instead of using propofol, I'm recommending Precedex, and will be titrated accordingly. I'm also recommending a brain CT today and a neurological consultation. Lovenox was increased to twice a day dosing mostly because of her ongoing atrial fibrillation. And she does have renal failure. Ventilator mcdowell, I recommended that we stay on the same vent settings, I did increase the flow to 60 L/m. See count is 26.2 hemoglobin is 9.4. Basic metabolic profile is normal however her BUN is 83 creatinine 2.16, patient is being followed by nephrology. Asked x-ray showed mostly bibasilar airspace disease, patient did test positive for COVID-19 infection however her chest x-ray is not basically typical of COVID-19 pneumonia, and the patient is not requiring significant FiO2 and significant PEEP at this point. Reevaluated today on 10/08/2021, remains in the ICU, intubated and mechanically ventilated. Patient is on assist control rate of 16, volume 300 FiO2 50% and PEEP of 5. ABG showed a pO2 of 77 pCO2 45 pH of 7.43. Patient is only on Precedex for sedation and to keep the patient synchronous with mechanical ventilation without affecting her mental status. She is requiring norepinephrine at 0.1 mcg/kg/m, and she is on antibiotics empirically. Patient is receiving Nepro at 31 mL per hour. Labs showed low potassium of 3.0, being corrected by protocol. Her renal profile is a bit worse with a BUN of 90 creatinine 2.63. LDH is 102 for C-reactive protein is 7.3. WBC count is elevated 30.7 hemoglobin is 8.9 and hematocrit 28.6. Patient is in atrial f ibrillation with controlled rate, she is on Eliquis, antibiotics mcdowell she is on Zosyn and Flagyl for her abdominal sepsis. Neurologically, the patient remains unresponsive to any stimuli, she grimaces with deep painful stimuli, otherwise no responses are noted. Neurology has been consulted on this patient. Reevaluated today on 10/09/2021, remains in the ICU, intubated and mechanically ventilated, remains off sedation except Precedex. Patient remains unresponsive to any stimuli. Being followed by neurology, and apparently her family was updated by neurology on her neurological status. Patient is on assist control rate of 16, volume 300 FiO2 50% and PEEP of 5. ABG showed a pO2 of 87 pCO2 40 0 pH of 7.47. Patient is on Precedex which I plan to discontinue, she is on enteral feeding in the form of Nepro, she is at goal. Patient is in atrial fibrillation, but rate seems to be controlled, her rate is 103 today. She is hemodynamically stable. Patient continues to grimace only to deep painful stimuli otherwise no neurological responses, she is in the process of having EEG during my evaluation. Chest x-ray showed mostly COPD with stable bilateral infiltrates and pleural effusion. WBC count today is 28.5 hemoglobin is 9.6. Electrolytes showed slightly elevated sodium of 145 potassium 3.4 BUN is 100 creatinine 2.46. Reevaluated today on 10/10/2021, remains in the ICU, intubated and mechanically ventilated. Patient is presently on assist control rate of 16 tidal volume 300 FiO2 of 50% PEEP of 5. ABG showed a pO2 of 86 pCO2 of 39 pH of 7.47. Patient remains unresponsive to any stimuli, remains off sedation. She is receiving enteral feeding, and it is up to goal in the form of Nepro. Her WBC count is 23.2 hemoglobin is 9.1. Electrolytes are normal except for a sodium of 148, BUN is 105 creatinine 2.27, being followed by nephrology. Chest x-ray is showing mostly atelectasis, and possibly a small left pleural effusion. Underlying pneumonia is not entirely ruled out, possibly COVID-19 related.. Patient remains on her accessory is also on Zosyn. Objective - Vital Signs Vital signs: Vital Signs Temp 97.7 F 10/10/21 12:00 Pulse 93 10/10/21 13:00 Resp 30 H 10/10/21 13:00 BP 119/86 10/10/21 13:00 Pulse Ox 96 10/10/21 13:00 Intake & Output 10/09/21 10/10/21 10/10/21 18:59 06:59 18:59 Intake Total 976.283 938 958 Output Total 1227 992 490 Balance -250.717 -54 468 Weight 72 kg 72.2 kg Intake: IV 576 476 511 0.9 240 240 140 Albumin Human 25% 50 ml 50 In Empty Bag 1 bag @ 50 mls/hr IVPB BID [facility] Rx#: [id number] Anidulafungin 100 mg In 100 Sodium Chloride 0.9% 100 ml @ 84 mls/hr IVPB DAILY [facility] Rx#:[id number] Piperacillin-Tazobactam 3 100 100 100 .375 gm In Sodium Chloride 0.9% 100 ml @ 25 mls/hr IVPB Q12H [facility] Rx# :[id number] Pressure Bag 36 36 21 metroNIDAZOLE-NS PMX 500 200 100 100 mg In Saline 1 100ml.bag @ 100 mls/hr IVPB Q6H [facility] Rx#:[id number] Intake, IV Titration 307.283 50 Amount Albumin Human 25% 50 ml 50 In Empty Bag 1 bag @ 50 mls/hr IVPB BID [facility] Rx#: [id number] Anidulafungin 100 mg In 100 Sodium Chloride 0.9% 100 ml @ 84 mls/hr IVPB DAILY [facility] Rx#:[id number] Calcium Gluconate 1 gm In 100 Sodium Chloride 0.9% 100 ml @ 100 mls/hr IVPB ONCE ONE Rx#:[id number] Dexmedetomidine/0.9% NaCl 55.901 (Pmx) 400 mcg In Empty Bag 1 bag @ 0.2 MCG/KG/HR 3.225 mls/hr IV .Q24H [facility] Rx#:[id number] Lacosamide IV 100 mg In 50 Sodium Chloride 0.9% 50 ml @ 100 mls/hr IVPB ONCE [facility] Rx#:[id number] Norepinephrine 32 mg In 1.382 Sodium Chloride 0.9% 218 ml @ 0.05 MCG/KG/MIN 1. 329 mls/hr IV .Q24H [facility] Rx#:[id number] Tube Feeding 93 372 217 Other 90 180 Output: Urine 627 692 490 Stool 600 300 Other: Voiding Method Indwelling Catheter Indwelling Catheter Indwelling Catheter ABP, PAP, CO, CI - Last Documented Arterial Blood Pressure 135/78 - Exam Gen: This is an 81-year-old female, intubated and mechanically ventilated. Maze unresponsive to stimuli, patient grimaces with painful stimuli. Head: Atraumatic, normocephalic. HEENT: PERRLA, EOMI, nonicteric, no neck masses, no JVD. Endotracheal tube is intact. Orogastric tube is intact. NECK: Supple. No JVD. No lymphadenopathy. No thyromegaly. Cardiac: Irregular irregular rhythm, no S3 gallop. 2/6 systolic murmur throughout the precordium. LUNGS: Symmetrical chest expansion crackles at the bases. Abdomen: Colostomy bag is intact, seems to be functional EXTREMITIES: 1+ bipedal edema, good pulses bilaterally. NEUROLOGICAL: Patient is intubated, grimaces to deep painful stimuli. Psychiatric: Cannot assess. Grimaces only to deep painful stimuli. - Labs CBC & Chem 7: 10/10/21 03:00 01/20/22 10:00 Labs: Abnormal Lab Results - Last 24 Hours (Table) 10/09/21 10/09/21 10/09/21 Range/Units 04:00 17:35 17:35 WBC (3.8-10.6) k/uL RBC (3.80-5.40) m/uL Hgb (11.4-16.0) gm/dL Hct (34.0-46.0) % MCHC (31.0-37.0) g/dL RDW (11.5-15.5) % Neutrophils # (1.3-7.7) k/uL Lymphocytes # (1.0-4.8) k/uL ABG pH (7.35-7.45) ABG HCO3 (21-25) mmol/L ABG Total CO2 (19-24) mmol/L ABG O2 Saturation (94-97) % Sodium (137-145) mmol/L Potassium (3.5-5.1) mmol/L Chloride (98-107) mmol/L BUN (7-17) mg/dL Creatinine (0.52-1.04) mg/dL Glucose (74-99) mg/dL POC Glucose (mg/dL) 208 H 208 H (75-99) mg/dL Calcium (8.4-10.2) mg/dL AST (14-36) U/L Alkaline Phosphatase (38-126) U/L Total Protein (6.3-8.2) g/dL Albumin (3.5-5.0) g/dL Procalcitonin 13.70 H (0.02-0.09) ng/mL 10/09/21 10/09/21 10/09/21 Range/Units 17:35 22:00 23:38 WBC (3.8-10.6) k/uL RBC (3.80-5.40) m/uL Hgb (11.4-16.0) gm/dL Hct (34.0-46.0) % MCHC (31.0-37.0) g/dL RDW (11.5-15.5) % Neutrophils # (1.3-7.7) k/uL Lymphocytes # (1.0-4.8) k/uL ABG pH (7.35-7.45) ABG HCO3 (21-25) mmol/L ABG Total CO2 (19-24) mmol/L ABG O2 Saturation (94-97) % Sodium (137-145) mmol/L Potassium 2.9 L (3.5-5.1) mmol/L Chloride (98-107) mmol/L BUN (7-17) mg/dL Creatinine (0.52-1.04) mg/dL Glucose (74-99) mg/dL POC Glucose (mg/dL) 208 H 175 H (75-99) mg/dL Calcium (8.4-10.2) mg/dL AST (14-36) U/L Alkaline Phosphatase (38-126) U/L Total Protein (6.3-8.2) g/dL Albumin (3.5-5.0) g/dL Procalcitonin (0.02-0.09) ng/mL 10/10/21 10/10/21 10/10/21 Range/Units 03:00 03:00 05:21 WBC 23.2 H (3.8-10.6) k/uL RBC 3.23 L (3.80-5.40) m/uL Hgb 9.4 L (11.4-16.0) gm/dL Hct 31.0 L (34.0-46.0) % MCHC 30.3 L (31.0-37.0) g/dL RDW 15.7 H (11.5-15.5) % Neutrophils # 21.3 H (1.3-7.7) k/uL Lymphocytes # 0.7 L (1.0-4.8) k/uL ABG pH (7.35-7.45) ABG HCO3 (21-25) mmol/L ABG Total CO2 (19-24) mmol/L ABG O2 Saturation (94-97) % Sodium 148 H (137-145) mmol/L Potassium (3.5-5.1) mmol/L Chloride 111 H (98-107) mmol/L BUN 105 H* (7-17) mg/dL Creatinine 2.27 H (0.52-1.04) mg/dL Glucose 190 H (74-99) mg/dL POC Glucose (mg/dL) 203 H (75-99) mg/dL Calcium 6.9 L (8.4-10.2) mg/dL AST 37 H (14-36) U/L Alkaline Phosphatase 210 H (38-126) U/L Total Protein 3.1 L (6.3-8.2) g/dL Albumin 1.6 L (3.5-5.0) g/dL Procalcitonin (0.02-0.09) ng/mL 10/10/21 10/10/21 10/10/21 Range/Units 05:38 10:00 11:42 WBC (3.8-10.6) k/uL RBC (3.80-5.40) m/uL Hgb (11.4-16.0) gm/dL Hct (34.0-46.0) % MCHC (31.0-37.0) g/dL RDW (11.5-15.5) % Neutrophils # (1.3-7.7) k/uL Lymphocytes # (1.0-4.8) k/uL ABG pH 7.47 H (7.35-7.45) ABG HCO3 29 H (21-25) mmol/L ABG Total CO2 30 H (19-24) mmol/L ABG O2 Saturation 97.3 H (94-97) % Sodium (137-145) mmol/L Potassium 3.3 L (3.5-5.1) mmol/L Chloride (98-107) mmol/L BUN (7-17) mg/dL Creatinine (0.52-1.04) mg/dL Glucose (74-99) mg/dL POC Glucose (mg/dL) 217 H (75-99) mg/dL Calcium (8.4-10.2) mg/dL AST (14-36) U/L Alkaline Phosphatase (38-126) U/L Total Protein (6.3-8.2) g/dL Albumin (3.5-5.0) g/dL Procalcitonin (0.02-0.09) ng/mL Assessment and Plan Assessment: Impression: Acute hypoxic respiratory failure, multifactorial. As noted below. Acute pneumoperitoneum and abdominal sepsis with perforation of sigmoid. Requiring surgery, colostomy, postoperative day #9 Septic shock due to abdominal sepsis Acute COVID-19 pneumonia is possible. History of kidney transplantation, on immunosuppressive therapy, patient is normally on CellCept prednisone and cyclosporine Chronic kidney disease stage III Chronic atrial fibrillation, on anticoagulation therapy COVID-19 infection possible pneumonia, vaccination status is unknown Osteoporosis History of breast cancer/lobular carcinoma in situ requiring surgery only Thrombocytopenia secondary to sepsis. Suspect acute metabolic encephalopathy and change in mental status. Remains unresponsive, neurology is addressing, EEG is being done today. Recommendation: Continue ventilatory support , cannot wean patient from mechanical ventilation unless her neurological status improves, otherwise may have to seriously considered tracheostomy on this patient. Continue antibiotics, and antifungal therapy, patient is on Eraxis, Zosyn, and Flagyl. Continue hydrocortisone but will cut down the dose to 50 mg IV push 3 times a day. Continue Eliquis. Continue to monitor daily electrolytes and labs. Continue antibiotics. Continue patient off immunosuppression Continue vitamin D Continue GI prophylaxis/Protonix Hold all sedatives hoping that her mental status will improve. CT of the brain is basically nondiagnostic Patient is critically ill, critical care time is over 30 minutes. Time with Patient: Greater than 30
--- NOTE | 2021-10-10 15:13 | P.PN ---
Subjective Progress Note Date: 10/10/21 CHIEF COMPLAINT: Abdominal pain HISTORY OF PRESENT ILLNESS: Patient is postop day #9 exploratory laparotomy, sigmoid colectomy with colostomy and right oophorectomy for perforated sigmoid colon. Patient is currently the ICU and intubated. Patient remains unresponsive. She is off of sedation. EEG had shown moderate diffuse cerebral dysfunction. She is followed by neurology. Patient is tolerating her tube feeds. Ostomy is functioning. She has been tachycardic. Afebrile. WBC is 23.2 PHYSICAL EXAM: VITAL SIGNS: Reviewed. GENERAL: Well-developed in no acute distress. HEENT: No sclera icterus. Extraocular movements grossly intact. Moist buccal mucosa. Head is atraumatic, normocephalic. ABDOMEN: Soft. Nondistended. Dressing clean dry and intact. Stool present in ostomy NEUROLOGIC: Intubated unresponsive ASSESSMENT: 1. Perforated sigmoid colon status post exploratory laparotomy, sigmoid colectomy with colostomy and right oophorectomy 2. Acute hypoxic respiratory failure currently intubated and on mechanical ventilation 3. Septic shock due to perforated sigmoid colon 4. History of A. fib and TIA 5. COVID-19 positive, incidental finding 6. History of kidney transplant. Nephrology following 7. Acute kidney injury on chronic kidney disease 8. Thrombocytopenia 9. Metabolic Encephalopathy PLAN: -Patient may eventually require tracheostomy placement if requiring prolonged intubation -Continue ICU management -Continue supportive care -Continue antibiotics -Receiving tube feedings through OG-tube for nutrition support -DVT prophylaxis lovenox and GI prophylaxis Protonix Physician Pharmacy Operations Manager note has been reviewed by physician. Signing provider agrees with the documented findings, assessment, and plan of care. Objective - Vital Signs Vital signs: Vital Signs Temp 97.7 F 10/10/21 12:00 Pulse 93 10/10/21 13:00 Resp 30 H 10/10/21 13:00 BP 119/86 10/10/21 13:00 Pulse Ox 96 10/10/21 13:00 Intake & Output 10/09/21 10/10/21 10/10/21 18:59 06:59 18:59 Intake Total 976.283 938 958 Output Total 1227 992 690 Balance -250.717 -54 268 Weight 72 kg 72.2 kg Intake: IV 576 476 511 0.9 240 240 140 Albumin Human 25% 50 ml 50 In Empty Bag 1 bag @ 50 mls/hr IVPB BID [facility] Rx#: [id number] Anidulafungin 100 mg In 100 Sodium Chloride 0.9% 100 ml @ 84 mls/hr IVPB DAILY [facility] Rx#:[id number] Piperacillin-Tazobactam 3 100 100 100 .375 gm In Sodium Chloride 0.9% 100 ml @ 25 mls/hr IVPB Q12H [facility] Rx# :[id number] Pressure Bag 36 36 21 metroNIDAZOLE-NS PMX 500 200 100 100 mg In Saline 1 100ml.bag @ 100 mls/hr IVPB Q6H [facility] Rx#:[id number] Intake, IV Titration 307.283 50 Amount Albumin Human 25% 50 ml 50 In Empty Bag 1 bag @ 50 mls/hr IVPB BID [facility] Rx#: [id number] Anidulafungin 100 mg In 100 Sodium Chloride 0.9% 100 ml @ 84 mls/hr IVPB DAILY [facility] Rx#:[id number] Calcium Gluconate 1 gm In 100 Sodium Chloride 0.9% 100 ml @ 100 mls/hr IVPB ONCE ONE Rx#:[id number] Dexmedetomidine/0.9% NaCl 55.901 (Pmx) 400 mcg In Empty Bag 1 bag @ 0.2 MCG/KG/HR 3.225 mls/hr IV .Q24H [facility] Rx#:[id number] Lacosamide IV 100 mg In 50 Sodium Chloride 0.9% 50 ml @ 100 mls/hr IVPB ONCE STA Rx#:[id number] Norepinephrine 32 mg In 1.382 Sodium Chloride 0.9% 218 ml @ 0.05 MCG/KG/MIN 1. 329 mls/hr IV .Q24H [facility] Rx#:[id number] Tube Feeding 93 372 217 Other 90 180 Output: Urine 627 692 490 Stool 600 300 200 Other: Voiding Method Indwelling Catheter Indwelling Catheter Indwelling Catheter ABP, PAP, CO, CI - Last Documented Arterial Blood Pressure 135/78 - Labs CBC & Chem 7: 10/10/21 03:00 10/10/21 10:00 Labs: Abnormal Lab Results - Last 24 Hours (Table) 10/09/21 10/09/21 10/09/21 Range/Units 04:00 17:35 17:35 WBC (3.8-10.6) k/uL RBC (3.80-5.40) m/uL Hgb (11.4-16.0) gm/dL Hct (34.0-46.0) % MCHC (31.0-37.0) g/dL RDW (11.5-15.5) % Neutrophils # (1.3-7.7) k/uL Lymphocytes # (1.0-4.8) k/uL ABG pH (7.35-7.45) ABG HCO3 (21-25) mmol/L ABG Total CO2 (19-24) mmol/L ABG O2 Saturation (94-97) % Sodium (137-145) mmol/L Potassium (3.5-5.1) mmol/L Chloride (98-107) mmol/L BUN (7-17) mg/dL Creatinine (0.52-1.04) mg/dL Glucose (74-99) mg/dL POC Glucose (mg/dL) 208 H 208 H (75-99) mg/dL Calcium (8.4-10.2) mg/dL AST (14-36) U/L Alkaline Phosphatase (38-126) U/L Total Protein (6.3-8.2) g/dL Albumin (3.5-5.0) g/dL Procalcitonin 13.70 H (0.02-0.09) ng/mL 10/09/21 10/09/21 10/09/21 Range/Units 17:35 22:00 23:38 WBC (3.8-10.6) k/uL RBC (3.80-5.40) m/uL Hgb (11.4-16.0) gm/dL Hct (34.0-46.0) % MCHC (31.0-37.0) g/dL RDW (11.5-15.5) % Neutrophils # (1.3-7.7) k/uL Lymphocytes # (1.0-4.8) k/uL ABG pH (7.35-7.45) ABG HCO3 (21-25) mmol/L ABG Total CO2 (19-24) mmol/L ABG O2 Saturation (94-97) % Sodium (137-145) mmol/L Potassium 2.9 L (3.5-5.1) mmol/L Chloride (98-107) mmol/L BUN (7-17) mg/dL Creatinine (0.52-1.04) mg/dL Glucose (74-99) mg/dL POC Glucose (mg/dL) 208 H 175 H (75-99) mg/dL Calcium (8.4-10.2) mg/dL AST (14-36) U/L Alkaline Phosphatase (38-126) U/L Total Protein (6.3-8.2) g/dL Albumin (3.5-5.0) g/dL Procalcitonin (0.02-0.09) ng/mL 10/10/21 10/10/21 10/10/21 Range/Units 03:00 03:00 05:21 WBC 23.2 H (3.8-10.6) k/uL RBC 3.23 L (3.80-5.40) m/uL Hgb 9.4 L (11.4-16.0) gm/dL Hct 31.0 L (34.0-46.0) % MCHC 30.3 L (31.0-37.0) g/dL RDW 15.7 H (11.5-15.5) % Neutrophils # 21.3 H (1.3-7.7) k/uL Lymphocytes # 0.7 L (1.0-4.8) k/uL ABG pH (7.35-7.45) ABG HCO3 (21-25) mmol/L ABG Total CO2 (19-24) mmol/L ABG O2 Saturation (94-97) % Sodium 148 H (137-145) mmol/L Potassium (3.5-5.1) mmol/L Chloride 111 H (98-107) mmol/L BUN 105 H* (7-17) mg/dL Creatinine 2.27 H (0.52-1.04) mg/dL Glucose 190 H (74-99) mg/dL POC Glucose (mg/dL) 203 H (75-99) mg/dL Calcium 6.9 L (8.4-10.2) mg/dL AST 37 H (14-36) U/L Alkaline Phosphatase 210 H (38-126) U/L Total Protein 3.1 L (6.3-8.2) g/dL Albumin 1.6 L (3.5-5.0) g/dL Procalcitonin (0.02-0.09) ng/mL 10/10/21 10/10/21 10/10/21 Range/Units 05:38 10:00 11:42 WBC (3.8-10.6) k/uL RBC (3.80-5.40) m/uL Hgb (11.4-16.0) gm/dL Hct (34.0-46.0) % MCHC (31.0-37.0) g/dL RDW (11.5-15.5) % Neutrophils # (1.3-7.7) k/uL Lymphocytes # (1.0-4.8) k/uL ABG pH 7.47 H (7.35-7.45) ABG HCO3 29 H (21-25) mmol/L ABG Total CO2 30 H (19-24) mmol/L ABG O2 Saturation 97.3 H (94-97) % Sodium (137-145) mmol/L Potassium 3.3 L (3.5-5.1) mmol/L Chloride (98-107) mmol/L BUN (7-17) mg/dL Creatinine (0.52-1.04) mg/dL Glucose (74-99) mg/dL POC Glucose (mg/dL) 217 H (75-99) mg/dL Calcium (8.4-10.2) mg/dL AST (14-36) U/L Alkaline Phosphatase (38-126) U/L Total Protein (6.3-8.2) g/dL Albumin (3.5-5.0) g/dL Procalcitonin (0.02-0.09) ng/mL
--- NOTE | 2021-10-10 15:51 | P.PN ---
Subjective Progress Note Date: 10/10/21 HISTORY OF PRESENT ILLNESS This is an 81-year-old pleasant female patient of Dr. Henao, with known history of hypertension, CK D stage III, paroxysmal atrial fibrillation admitted through the emergency room secondary to abdominal pain and found to have pneumoperitoneum. She has significant discomfort, accompanied by nausea, vomiting, no fever. She presented to emergency room with normal findings, in the CAT scan showing moderate pneumoperitoneum, with small bowel thickening, and mild dilatation saray a of the mesenteric considered for mesenteric ischemia there is a left-sided pelvic cystic mass. Chest x-ray shows atelectasis, She is hypotensive, when seen, lactic acid level is high at 12, she was having difficulty of breathing with tachypnea, hence she was preemptively intubated in the emergency room,. She was placed on assist-control, rate of 26, FiO2 40%, PEEP of 5 at the volume of 300. She was sent ICU for stabilization requiring norepinephrine infusion at 0.5 mcg/kg/m for hypotension and septic shock, she received 3.5 L of normal saline for which she is now undergoing exploratory laparotomy. Consult was made with Dr. Price surgeon, and Dr. Nino, critical care ICU physician incidentally, she was tested confirmed Covid positive, on October 0110/02: Patient is seen today in the intensive care unit, remains intubated and on mechanical ventilation with tidal volume 300, FiO2 40 and PEEP of 5. Patient is currently on propofol, bicarb drip, amiodarone is being started for A. fib. Patient is on antibiotics the form of Zosyn and Flagyl. Repeat chest x-ray reveals basilar atelectasis, correlate to exclude pneumonia, possible effusion. Patient is followed by infectious disease, cardiology, medical and scientific illustrator, nephrology, general surgery. Repeat blood work today reveals WBC 24.6, hemoglobin 12.1, platelet count 123. Sodium 136, potassium 4.5, chloride 109, CO2 11, BUN 38 creatinine 3.04. Calcium 5.9. AST 109. Patient remains in isolation for Covid 19. 10/03: Remains intubated on mechanical ventilation with tidal volume 300, FiO2 40, PEEP of 5. She has had very minimal amount output on ostomy. She has been on high-dose levo fed started on vasopressin as well and heparin drip is off due to elevated PTT. She has no output from her OG. Urine output has improved. 10/04: She remains intubated and on mechanical ventilation with tidal volume 300, FiO2 40 and PEEP of 5. Patient started having output from ostomy last evening, liquid brown approximate 950 ML's. Calcium is being replaced. She is still on low-dose norepinephrine and vasopressin as well as IV fluids. Anticipate she will start oral medications and feedings today. Chest x-ray reveals stable bilateral infiltrate and pleural effusion. 10/05 patient remains intubated, PEEP of 5, O2 40% Dilaudid, pressures are little bit on the lower side, still with norepinephrine titrated with bp, NG feedings at 23 mL an hour, output noted in colostomy, no plans for vent weaning at this time in output is adequate patient is on Cortef 100 mg every 8 hours, was on oral prednisone chronically prior to admission. Ahlquist is still on hold, on IV Zosyn and Flagyl 10/06 and 20 rate in the 110s, blood pressure 125/92, remains to be intubated, assist control 16, with FiO2 40%, PEEP of 5. Slightly labored breathing colostomy, without no blood, NG feedings. On Zosyn and Flagyl multiple specialists following, patient remains in ICU 10/07: Patient remains intubated and on mechanical ventilation with tidal volume 300, FiO2 50 and PEEP of 5. Patient remains unresponsive. She is off vasopressors. She is on tube feedings. Urine output has been 30-40 mL per hour. Cardiology is on consult for atrial fibrillation with RVR and started Lopressor 25 mg twice daily. Chest x-ray reveals correlate for congestive heart failure with basilar effusions and associated atelectasis versus edema, pneumonia not excluded. 10/08: Patient remains in the intensive care unit. She has been off propofol. She is on Precedex and remains intubated on mechanical ventilation with tidal volume 300, FiO2 50, PEEP of 5. Patient's been cleared start eliquis tomorrow by Dr. Price. She is on levo fed which is being weaned down. She has had output from her ostomy. EEG is abnormal with background slowing suggestive of moderate to severe encephalopathy. 10/09: Patient remains in the intensive care unit intubated and on mechanical ventilation with tidal volume 300, FiO2 50, PEEP of 5. Patient is back on norep inephrine this morning with significant increase in blood pressure, now norepinephrine is off. Precedex has been weaned. Patient has not showed any purposeful movements. Patient is afebrile, heart rate 92, blood pressure 122/73, respiratory rate 31, pulse ox 96%. WBC 28.5, hemoglobin 9.6. Potassium 3.4, chloride 108, BUN 100, creatinine 2.46. Blood sugars are between 185 and 202. Alkaline phosphatase 217. C-reactive protein 5.5. Patient remains in isolation due to Covid [address] Kahn has started the patient on Eraxis. 10/10: Patient remains intubated on mechanical ventilation with tidal volume 300, FiO2 50, PEEP of 5. She remains unresponsive to stimuli and off sedation. She is on tube feedings at goal. Repeat blood work reveals WBC 23.2, hemoglobin 9.1. Sodium 148, BUN 105, creatinine 2.27. Patient is followed by medical and scientific illustrator, java grails developer. Repeat chest x-ray reveals atelectasis and possibly small left pleural effusion. Underlying pneumonia not entirely ruled out, possibly Covid 19 related. She has been afebrile, heart rate 106, respiratory rate 31, blood pressure 97/63. Albumin has been ordered by Dr. Sampson. She is continued on Eraxis, Flagyl, Zosyn. Dr. Bucio updated patient's daughter over the phone. At this time, she does not feel she has enough information to make any decisions such as CODE STATUS. She will discuss with her 2 brothers. Review of SYSTEMS ROS unobtainable: due to endotracheal tube PHYSICAL EXAMINATION Gen: This is an 81-year-old female, resting on the ICU bed and appears to be comfortable. ET and orogastric tube in place. HEENT: Head is atraumatic, normocephalic. Physical examination deferred due to intubation and Covid 19. ASSESSMENT AND PLAN 1. Acute pneumoperitoneum, with peritonitis considered for small bowel perforation, underlying ischemic bowel and abdominal sepsis 2. Acute hypoxic respiratory failure requiring mechanical intubation. General surgery, is status post exploratory laparotomy 10/01/2020. Continue Eraxis, Zosyn and Flagyl. Patient is on stress dose of hydrocortisone 50 mg every 8 hours. 3. Small bowel perforation suspected, with septic shock, explore lap on 10/01/1908/10/2022, IV Zosyn 4. Septic shock, severe lactic acidosis, IV antibiotics, with fluids w pressors 5. History of kidney transplantation, on immunosuppressive agent, CellCept and prednisone and cyclosporine 6. Acute allograft dysfunction secondary to ATN secondary to hypotension and shock CKD, suspect stage III, relative consult appreciated. 7. chronic atrial fibrillation, with prior TIA. Patient is on liquids, Lopressor 25 mg 3 times daily daily, cardiology consult appreciated. 8. Covid 19 infection, unknown infection time and onset of signs and symptoms, vaccination status not Determined, consult Dr. Kahn 9. Osteoporosis 10. Breast cancer, with lobular carcinoma in situ, had surgery for these activity unknown, 11. 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 Carmona. 12. Hypocalcemia. Continue to monitor and replace 13. Thrombocytopenia secondary to sepsis. Continue to monitor. 14. DVT prophylaxis GI prophylaxis CODE STATUS, full until specified Prognosis guarded. Impression and plan of care have been directed as dictated by the signing physician. Cierra Rodas nurse practitioner acting as scribe for signing physician. Objective - Vital Signs Vital signs: Vital Signs Temp 99.0 F 10/10/21 08:00 Pulse 95 10/10/21 11:00 Resp 29 H 10/10/21 11:00 BP 95/66 10/10/21 11:00 Pulse Ox 94 L 10/10/21 11:00 Intake & Output 10/09/21 10/10/21 10/10/21 18:59 06:59 18:59 Intake Total 976.283 938 850 Output Total 1227 992 340 Balance -250.717 -54 510 Weight 72 kg 72.2 kg Intake: IV 576 476 465 0.9 240 240 100 Albumin Human 25% 50 ml 50 In Empty Bag 1 bag @ 50 mls/hr IVPB BID [facility] Rx#: [id number] Anidulafungin 100 mg In 100 Sodium Chloride 0.9% 100 ml @ 84 mls/hr IVPB DAILY [facility] Rx#:[id number] Piperacillin-Tazobactam 3 100 100 100 .375 gm In Sodium Chloride 0.9% 100 ml @ 25 mls/hr IVPB Q12H [facility] Rx# :[id number] Pressure Bag 36 36 15 metroNIDAZOLE-NS PMX 500 200 100 100 mg In Saline 1 100ml.bag @ 100 mls/hr IVPB Q6H [facility] Rx#:[id number] Intake, IV Titration 307.283 50 Amount Albumin Human 25% 50 ml 50 In Empty Bag 1 bag @ 50 mls/hr IVPB BID [facility] Rx#: [id number] Anidulafungin 100 mg In 100 Sodium Chloride 0.9% 100 ml @ 84 mls/hr IVPB DAILY [facility] Rx#:[id number] Calcium Gluconate 1 gm In 100 Sodium Chloride 0.9% 100 ml @ 100 mls/hr IVPB ONCE ONE Rx#:[id number] Dexmedetomidine/0.9% NaCl 55.901 (Pmx) 400 mcg In Empty Bag 1 bag @ 0.2 MCG/KG/HR 3.225 mls/hr IV .Q24H [facility] Rx#:[id number] Lacosamide IV 100 mg In 50 Sodium Chloride 0.9% 50 ml @ 100 mls/hr IVPB ONCE STA Rx#:[id number] Norepinephrine 32 mg In 1.382 Sodium Chloride 0.9% 218 ml @ 0.05 MCG/KG/MIN 1. 329 mls/hr IV .Q24H [facility] Rx#:[id number] Tube Feeding 93 372 155 Other 90 180 Output: Urine 627 692 340 Stool 600 300 Other: Voiding Method Indwelling Catheter Indwelling Catheter Indwelling Catheter ABP, PAP, CO, CI - Last Documented Arterial Blood Pressure 112/60 - Labs CBC & Chem 7: 10/10/21 03:00 10/10/21 10:00 Labs: Abnormal Lab Results - Last 24 Hours (Table) 10/09/21 10/09/21 10/09/21 Range/Units 04:00 10:29 17:35 WBC (3.8-10.6) k/uL RBC (3.80-5.40) m/uL Hgb (11.4-16.0) gm/dL Hct (34.0-46.0) % MCHC (31.0-37.0) g/dL RDW (11.5-15.5) % Neutrophils # (1.3-7.7) k/uL Lymphocytes # (1.0-4.8) k/uL ABG pH (7.35-7.45) ABG HCO3 (21-25) mmol/L ABG Total CO2 (19-24) mmol/L ABG O2 Saturation (94-97) % Sodium (137-145) mmol/L Potassium 3.2 L (3.5-5.1) mmol/L Chloride (98-107) mmol/L BUN (7-17) mg/dL Creatinine (0.52-1.04) mg/dL Glucose (74-99) mg/dL POC Glucose (mg/dL) 208 H (75-99) mg/dL Calcium (8.4-10.2) mg/dL AST (14-36) U/L Alkaline Phosphatase (38-126) U/L Total Protein (6.3-8.2) g/dL Albumin (3.5-5.0) g/dL Procalcitonin 13.70 H (0.02-0.09) ng/mL 10/09/21 10/09/21 10/09/21 Range/Units 17:35 17:35 22:00 WBC (3.8-10.6) k/uL RBC (3.80-5.40) m/uL Hgb (11.4-16.0) gm/dL Hct (34.0-46.0) % MCHC (31.0-37.0) g/dL RDW (11.5-15.5) % Neutrophils # (1.3-7.7) k/uL Lymphocytes # (1.0-4.8) k/uL ABG pH (7.35-7.45) ABG HCO3 (21-25) mmol/L ABG Total CO2 (19-24) mmol/L ABG O2 Saturation (94-97) % Sodium (137-145) mmol/L Potassium 2.9 L (3.5-5.1) mmol/L Chloride (98-107) mmol/L BUN (7-17) mg/dL Creatinine (0.52-1.04) mg/dL Glucose (74-99) mg/dL POC Glucose (mg/dL) 208 H 208 H (75-99) mg/dL Calcium (8.4-10.2) mg/dL AST (14-36) U/L Alkaline Phosphatase (38-126) U/L Total Protein (6.3-8.2) g/dL Albumin (3.5-5.0) g/dL Procalcitonin (0.02-0.09) ng/mL 10/09/21 10/10/21 10/10/21 Range/Units 23:38 03:00 03:00 WBC 23.2 H (3.8-10.6) k/uL RBC 3.23 L (3.80-5.40) m/uL Hgb 9.4 L (11.4-16.0) gm/dL Hct 31.0 L (34.0-46.0) % MCHC 30.3 L (31.0-37.0) g/dL RDW 15.7 H (11.5-15.5) % Neutrophils # 21.3 H (1.3-7.7) k/uL Lymphocytes # 0.7 L (1.0-4.8) k/uL ABG pH (7.35-7.45) ABG HCO3 (21-25) mmol/L ABG Total CO2 (19-24) mmol/L ABG O2 Saturation (94-97) % Sodium 148 H (137-145) mmol/L Potassium (3.5-5.1) mmol/L Chloride 111 H (98-107) mmol/L BUN 105 H* (7-17) mg/dL Creatinine 2.27 H (0.52-1.04) mg/dL Glucose 190 H (74-99) mg/dL POC Glucose (mg/dL) 175 H (75-99) mg/dL Calcium 6.9 L (8.4-10.2) mg/dL AST 37 H (14-36) U/L Alkaline Phosphatase 210 H (38-126) U/L Total Protein 3.1 L (6.3-8.2) g/dL Albumin 1.6 L (3.5-5.0) g/dL Procalcitonin (0.02-0.09) ng/mL 10/10/21 10/10/21 Range/Units 05:21 05:38 WBC (3.8-10.6) k/uL RBC (3.80-5.40) m/uL Hgb (11.4-16.0) gm/dL Hct (34.0-46.0) % MCHC (31.0-37.0) g/dL RDW (11.5-15.5) % Neutrophils # (1.3-7.7) k/uL Lymphocytes # (1.0-4.8) k/uL ABG pH 7.47 H (7.35-7.45) ABG HCO3 29 H (21-25) mmol/L ABG Total CO2 30 H (19-24) mmol/L ABG O2 Saturation 97.3 H (94-97) % Sodium (137-145) mmol/L Potassium (3.5-5.1) mmol/L Chloride (98-107) mmol/L BUN (7-17) mg/dL Creatinine (0.52-1.04) mg/dL Glucose (74-99) mg/dL POC Glucose (mg/dL) 203 H (75-99) mg/dL Calcium (8.4-10.2) mg/dL AST (14-36) U/L Alkaline Phosphatase (38-126) U/L Total Protein (6.3-8.2) g/dL Albumin (3.5-5.0) g/dL Procalcitonin (0.02-0.09) ng/mL
[2021-10-10] MEDS: SODIUM CHLORIDE 0.9% 1,000 ML IV SCH (16:44)
[2021-10-10 17:21] LABS: Glucose,Whole Blood 209 mg/dL (75-99)
[2021-10-10] MEDS: POTASSIUM CHLORIDE 10 MEQ in WATER FOR INJECTION 1 100ML.BAG IVPB SCH ×2 (20:38→23:12)
[2021-10-10 23:54] LABS: Glucose,Whole Blood 200 mg/dL (75-99)
[2021-10-11] MEDS: POTASSIUM CHLORIDE 10 MEQ in WATER FOR INJECTION 1 100ML.BAG IVPB SCH ×2 (00:55→02:05)
[2021-10-11] MEDS: NOREPINEPHRINE 32 MG in SODIUM CHLORIDE 0.9% 218 ML IV SCH (00:58)
[2021-10-11] MEDS: metroNIDAZOLE-NS PMX 500 MG in SALINE 1 100ML.BAG IVPB SCH ×2 (03:15→09:11)
[2021-10-11 04:44] LABS: Albumin 1.8 g/dL (3.5-5.0); Calcium 7.2 mg/dL (8.4-10.2); Total Bilirubin 1.1 mg/dL (0.2-1.3); Total Protein 3.4 g/dL (6.3-8.2)
[2021-10-11] MEDS: POTASSIUM BICARBONATE/CIT AC 20 MEQ TABLET.EFF NG-TUBE SCH ×2 (05:24→06:16)
[2021-10-11 05:32] LABS: Glucose,Whole Blood 186 mg/dL (75-99)
[2021-10-11] MEDS: INSULIN ASPART (NovoLOG) 100 UNIT/ML VIAL SQ SCH ×4 (05:34→23:45)
[2021-10-11 05:44] LABS: ABG Base Excess 3.8 mmol/L; ABG HCO3 27 mmol/L (21-25); ABG Oxygen Saturation 97.4 % (94-97); ABG PCO2 35 mmHg (35-45); ABG PO2 87 mmHg (83-108); ABG TCO2 28 mmol/L (19-24); Allen Test Performed? Yes
[2021-10-11 05:49] LABS: Basophils % (A) 0 %; Eosinophils % (A) 0 %; HCT 28.6 % (34.0-46.0); HGB 8.5 gm/dL (11.4-16.0); Hypochromasia Marked; Lymphocytes # (A) 0.8 k/uL (1.0-4.8); Lymphocytes % (A) 4 %; MCH 29.2 pg (25.0-35.0); MCHC 29.9 g/dL (31.0-37.0); MCV 97.5 fL (80.0-100.0); Mean Platelet Volume 12.9; Monocytes # (A) 0.6 k/uL (0-1.0); Monocytes % (A) 3 %; Neutrophils % (A) 92 %; Platelet Count 308 k/uL (150-450); RBC 2.93 m/uL (3.80-5.40); RDW 15.8 % (11.5-15.5); WBC 20.8 k/uL (3.8-10.6)
[2021-10-11 07:08] LABS: Anisocytosis (M) Present; Polychromasia Present
[2021-10-11 07:09] LABS: Large Platelets Present
[2021-10-11 07:10] LABS: Poikilocytosis (M) Present
--- NOTE | 2021-10-11 08:30 | XR ---
EXAMINATION TYPE: XR chest 1V portable DATE OF EXAM: 10/11/2021 COMPARISON: Chest x-ray 10/10/2021 HISTORY: Covid pneumonia, intubated TECHNIQUE: Single frontal view of the chest is obtained. FINDINGS: Endotracheal tube, NG tube, right jugular central venous catheter are overlying stable pos itions. No evident pneumothorax. Pleural parenchymal changes are similar to prior exam. Cardiac media stinal silhouette is unchanged. Aorta is dense and the patient is again rotated. IMPRESSION: Findings similar to prior exam. Correlate for pneumonia or edema, atelectasis, difficult to exclude associated effusion
--- NOTE | 2021-10-11 08:46 | P.PN ---
Subjective Patient is seen in follow-up for acute allograft dysfunction. Intubated. Receiving tube feeds. Off Levophed. Nonoliguric. Blood pressure stable. Sodium level 151 today. Vital signs are stable. General: Intubated. HEENT: Head exam is unremarkable. LUNGS: Breath sounds decreased. HEART: Tachycardic. ABDOMEN: No distention. EXTREMITITES: 1+ edema. Objective - Vital Signs Vital signs: Vital Signs Temp 98.3 F 10/11/21 04:00 Pulse 105 H 10/11/21 07:00 Resp 42 H 10/11/21 07:00 BP 126/100 10/11/21 07:00 Pulse Ox 96 10/11/21 07:00 Intake & Output 10/10/21 10/11/21 10/11/21 18:59 06:59 18:59 Intake Total 1682 2013 54 Output Total 1265 1660 75 Balance 417 353 -21 Weight 73.2 kg Intake: IV 749 1103 23 0.9 260 220 20 Albumin Human 25% 50 ml 50 50 In Empty Bag 1 bag @ 50 mls/hr IVPB BID [facility] Rx#: [id number] Anidulafungin 100 mg In 100 Sodium Chloride 0.9% 100 ml @ 84 mls/hr IVPB DAILY [facility] Rx#:[id number] Piperacillin-Tazobactam 3 100 100 .375 gm In Sodium Chloride 0.9% 100 ml @ 25 mls/hr IVPB Q12H [facility] Rx# :[id number] Potassium Chloride 10 meq 500 In Water For Injection 1 100ml.bag @ 100 mls/hr IVPB Q1HR [facility] Rx#: [id number] Pressure Bag 39 33 3 metroNIDAZOLE-NS PMX 500 200 200 mg In Saline 1 100ml.bag @ 100 mls/hr IVPB Q6H [facility] Rx#:[id number] Intake, IV Titration 50 Amount Albumin Human 25% 50 ml 50 In Empty Bag 1 bag @ 50 mls/hr IVPB BID [facility] Rx#: [id number] Tube Feeding 403 310 31 Other 480 600 Output: Urine 865 1160 75 Stool 400 500 Other: Voiding Method Indwelling Catheter Indwelling Catheter ABP, PAP, CO, CI - Last Documented Arterial Blood Pressure 161/84 - Labs CBC & Chem 7: 10/11/21 04:00 10/11/21 04:00 Labs: Abnormal Lab Results - Last 24 Hours (Table) 10/10/21 10/10/21 10/10/21 Range/Units 10:00 11:42 17:20 WBC (3.8-10.6) k/uL RBC (3.80-5.40) m/uL Hgb (11.4-16.0) gm/dL Hct (34.0-46.0) % MCHC (31.0-37.0) g/dL RDW (11.5-15.5) % Neutrophils # (1.3-7.7) k/uL Lymphocytes # (1.0-4.8) k/uL ABG pH (7.35-7.45) ABG HCO3 (21-25) mmol/L ABG Total CO2 (19-24) mmol/L ABG O2 Saturation (94-97) % Sodium (137-145) mmol/L Potassium 3.3 L (3.5-5.1) mmol/L Chloride (98-107) mmol/L BUN (7-17) mg/dL Creatinine (0.52-1.04) mg/dL Glucose (74-99) mg/dL POC Glucose (mg/dL) 217 H 209 H (75-99) mg/dL Calcium (8.4-10.2) mg/dL Alkaline Phosphatase (38-126) U/L Total Protein (6.3-8.2) g/dL Albumin (3.5-5.0) g/dL 10/10/21 10/10/21 10/11/21 Range/Units 18:00 23:52 04:00 WBC 20.8 H (3.8-10.6) k/uL RBC 2.93 L (3.80-5.40) m/uL Hgb 8.5 L (11.4-16.0) gm/dL Hct 28.6 L (34.0-46.0) % MCHC 29.9 L (31.0-37.0) g/dL RDW 15.8 H (11.5-15.5) % Neutrophils # 19.0 H (1.3-7.7) k/uL Lymphocytes # 0.8 L (1.0-4.8) k/uL ABG pH (7.35-7.45) ABG HCO3 (21-25) mmol/L ABG Total CO2 (19-24) mmol/L ABG O2 Saturation (94-97) % Sodium (137-145) mmol/L Potassium 3.1 L (3.5-5.1) mmol/L Chloride (98-107) mmol/L BUN (7-17) mg/dL Creatinine (0.52-1.04) mg/dL Glucose (74-99) mg/dL POC Glucose (mg/dL) 200 H (75-99) mg/dL Calcium (8.4-10.2) mg/dL Alkaline Phosphatase (38-126) U/L Total Protein (6.3-8.2) g/dL Albumin (3.5-5.0) g/dL 10/11/21 10/11/21 10/11/21 Range/Units 04:00 05:29 05:40 WBC (3.8-10.6) k/uL RBC (3.80-5.40) m/uL Hgb (11.4-16.0) gm/dL Hct (34.0-46.0) % MCHC (31.0-37.0) g/dL RDW (11.5-15.5) % Neutrophils # (1.3-7.7) k/uL Lymphocytes # (1.0-4.8) k/uL ABG pH 7.50 H (7.35-7.45) ABG HCO3 27 H (21-25) mmol/L ABG Total CO2 28 H (19-24) mmol/L ABG O2 Saturation 97.4 H (94-97) % Sodium 151 H (137-145) mmol/L Potassium 3.0 L (3.5-5.1) mmol/L Chloride 115 H (98-107) mmol/L BUN 98 H (7-17) mg/dL Creatinine 1.96 H (0.52-1.04) mg/dL Glucose 197 H (74-99) mg/dL POC Glucose (mg/dL) 186 H (75-99) mg/dL Calcium 7.2 L (8.4-10.2) mg/dL Alkaline Phosphatase 180 H (38-126) U/L Total Protein 3.4 L (6.3-8.2) g/dL Albumin 1.8 L (3.5-5.0) g/dL Assessment and Plan Plan: Assessment: 1. 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 Baseline creatinine near 1 and peaked at 3.5 to this admission - 1.96 today. No hydronephrosis noted on CAT scan. 2. Status post renal transplant in 2017 at [facility]. 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 3. Metabolic acidosis secondary to acute kidney injury and lactic acidosis. Resolved. Then became alkalotic - improved with Diamox. 4. Pneumoperitoneum s/p exploratory laparotomy, right oophorectomy and colostomy this admission. 5. Septic shock, off levophed. 6. COVID-19 infection. 7. Acute hypoxic respiratory failure. 8. Volume overload. 9. Hypocalcemia secondary to acute kidney injury maintained on vitamin D supplementation and Tums. PTH 214. Vitamin D level 35.9. Corrected calcium for albumin is normal. 10. Hypokalemia from diuresis and poor intake. Being replaced. 11. Hypernatremia from lack of oral water intake. 12. A. fib with RVR on metoprolol and anticoagulation. Plan: Maintain tube feeds. Increase water flushes to 400 mL every 4 hours. Potassium being replaced. She is currently on IV hydrocortisone. Cyclosporine resumed at low dose on 10/07/2021. Continue to monitor renal function and urine output. Wean FiO2. 25 g IV albumin 2 doses today. Lasix 40 mg IV once after first dose of albumin infused.
[2021-10-11] MEDS: ALBUMIN HUMAN 25% 50 ML in EMPTY BAG 1 BAG IVPB SCH ×3 (09:10→17:53)
[2021-10-11] MEDS: CHLORHEXIDINE GLUCONATE 15 ML CUP MUCOUS MEM SCH ×2 (09:11→20:43)
[2021-10-11] MEDS: CALCIUM CARBONATE 500 MG CHEWABLE PO SCH ×2 (09:12→20:43)
[2021-10-11] MEDS: HYDROCORTISONE SUCCINATE 100 MG/2 ML VIAL IV SCH ×2 (09:12→20:43)
[2021-10-11] MEDS: PANTOPRAZOLE 40 MG/10 ML VIAL IV SCH (09:12)
[2021-10-11] MEDS: METOPROLOL TARTRATE 25 MG TAB PO SCH (09:12)
[2021-10-11] MEDS: PIPERACILLIN-TAZOBACTAM 3.375 GM in SODIUM CHLORIDE 0.9% 100 ML IVPB SCH ×2 (09:12→20:44)
[2021-10-11] MEDS: ANIDULAFUNGIN 100 MG in SODIUM CHLORIDE 0.9% 100 ML IVPB SCH (09:13)
[2021-10-11] MEDS: APIXABAN 2.5 MG TABLET PO SCH ×2 (09:13→20:43)
[2021-10-11] MEDS: cycloSPORINE 25 MG CAP PO SCH ×2 (09:13→20:43)
[2021-10-11] MEDS: LACOSAMIDE IV 50 MG in SODIUM CHLORIDE 0.9% 50 ML IVPB SCH ×2 (09:35→20:43)
[2021-10-11] MEDS: ERGOCALCIFEROL 1,250 MCG (50,000 IU) CAPSULE PO SCH (09:35)
[2021-10-11] MEDS ORDERED: FUROSEMIDE 10 MG/ML 4 ML VIAL IV STA (10:32)
--- NOTE | 2021-10-11 10:38 | P.PN ---
Subjective Progress Note Date: 10/11/21 The patient is seen at bedside and per nurse her condition is about the same. She continues to be off sedations. Objective - Vital Signs Vital signs: Vital Signs Temp 98.3 F 10/11/21 04:00 Pulse 111 H 10/11/21 08:00 Resp 37 H 10/11/21 08:00 BP 120/84 10/11/21 08:00 Pulse Ox 96 10/11/21 07:00 Intake & Output 10/10/21 10/11/21 10/11/21 18:59 06:59 18:59 Intake Total 1682012 108 Output Total 1265 1660 775 Balance 417 353 -667 Weight 73.2 kg Intake: IV 749 1103 46 0.9 260 220 40 Albumin Human 25% 50 ml 50 50 In Empty Bag 1 bag @ 50 mls/hr IVPB BID [facility] Rx#: [id number] Anidulafungin 100 mg In 100 Sodium Chloride 0.9% 100 ml @ 84 mls/hr IVPB DAILY [facility] Rx#:[id number] Piperacillin-Tazobactam 3 100 100 .375 gm In Sodium Chloride 0.9% 100 ml @ 25 mls/hr IVPB Q12H [facility] Rx# :[id number] Potassium Chloride 10 meq 500 In Water For Injection 1 100ml.bag @ 100 mls/hr IVPB Q1HR [facility] Rx#: [id number] Pressure Bag 39 33 6 metroNIDAZOLE-NS PMX 500 200 200 mg In Saline 1 100ml.bag @ 100 mls/hr IVPB Q6H [facility] Rx#:[id number] Intake, IV Titration 50 Amount Albumin Human 25% 50 ml 50 In Empty Bag 1 bag @ 50 mls/hr IVPB BID [facility] Rx#: [id number] Tube Feeding 403 310 62 Other 480 600 Output: Urine 865 1160 275 Stool 400 500 500 Other: Voiding Method Indwelling Catheter Indwelling Catheter Indwelling Catheter ABP, PAP, CO, CI - Last Documented Arterial Blood Pressure 180/100 - Exam GENERAL: The patient is lying in bed and does not seem in acute distress. NEUROLOGICAL: Limited since because of her condition. Higher mental function: The patient is comatose. Patient is not verbally repsponsive or following commands. Cranial nerves: Minimally opens eyes to painful stimuli. Primary gaze is midline. The pupils are round, equal (3mm) and reactive to light. +ve corneal reflex bilaterally. No facial weakness. Patient would grimace face to painful stimuli. Has positive gag reflex. Is breathing over the vent. Motor: The strength is unable to assess. But would grimace face to painful stimuli throughout. She had minimal movement of movement of ankles to painful stimuli. Normal bulk. No spontaneous movement noted. Cerebellum: Could not assess. Sensation: Light touch could not be assessed but grimaces to painful stimuli throughout.. Reflexes (right/left): 1+ throughout.. Plantars are mute bilaterally. WORK-UP: Coronavirus PCR is positive on 10/01/21 Potassium 0.2, sodium is 142, calcium 66.4, ionized calcium of 4.0 and was as low as 3.0, phosphorus is 5.4 and was as high as 8.6 during this hospital stay. AST of 35 and ALT of 11. Urine culture was negative for urinary tract infection. Blood cultures are no growth after 120 days Routine EEG on 10/07/2020 is abnormal. The background slowing is suggestive of moderate to severe encephalopathy. There is no focal slowing, epileptiform discharges or seizure on the EEG. 2.5hour EEG on 10/08/21: Is reported as abnormal 2.5 hour EEG. No clinical or electrographic seizures were reported. No epileptiform activity was present. This was predominantly a sleep EEG. During rare periods of relatively maximal arousal, diffuse theta range slowing was seen which was not epileptiform in nature. These findings indicate moderate diffuse cerebral dysfunction which may be in part due to medication effect. 2.5hour EEG on 10/09/2021: Is reported as abnormal EEG. The triphasic waves mentioned above are not epileptiform in nature. Triphasic waves can be seen in the setting of metabolic encephalopathy. The diffuse synchronous and asynchronous theta and delta range slowing, frontally predominant mentioned above is not epileptiform in nature. In combination, these findings indicate moderate diffuse cerebral dysfunction. No seizure were recorded. No epileptiform activity the was present. CT Brain w/o: Is reported as cerebral atrophy and chronic small vessel ischemia. No acute intracranial abnormality. - Labs CBC & Chem 7: 10/11/21 04:00 10/11/21 04:00 Labs: Abnormal Lab Results - Last 24 Hours (Table) 10/10/21 10/10/21 10/10/21 Range/Units 10:00 11:42 17:20 WBC (3.8-10.6) k/uL RBC (3.80-5.40) m/uL Hgb (11.4-16.0) gm/dL Hct (34.0-46.0) % MCHC (31.0-37.0) g/dL RDW (11.5-15.5) % Neutrophils # (1.3-7.7) k/uL Lymphocytes # (1.0-4.8) k/uL ABG pH (7.35-7.45) ABG HCO3 (21-25) mmol/L ABG Total CO2 (19-24) mmol/L ABG O2 Saturation (94-97) % Sodium (137-145) mmol/L Potassium 3.3 L (3.5-5.1) mmol/L Chloride (98-107) mmol/L BUN (7-17) mg/dL Creatinine (0.52-1.04) mg/dL Glucose (74-99) mg/dL POC Glucose (mg/dL) 217 H 209 H (75-99) mg/dL Calcium (8.4-10.2) mg/dL Alkaline Phosphatase (38-126) U/L Total Protein (6.3-8.2) g/dL Albumin (3.5-5.0) g/dL 10/10/21 10/10/21 10/11/21 Range/Units 18:00 23:52 04:00 WBC 20.8 H (3.8-10.6) k/uL RBC 2.93 L (3.80-5.40) m/uL Hgb 8.5 L (11.4-16.0) gm/dL Hct 28.6 L (34.0-46.0) % MCHC 29.9 L (31.0-37.0) g/dL RDW 15.8 H (11.5-15.5) % Neutrophils # 19.0 H (1.3-7.7) k/uL Lymphocytes # 0.8 L (1.0-4.8) k/uL ABG pH (7.35-7.45) ABG HCO3 (21-25) mmol/L ABG Total CO2 (19-24) mmol/L ABG O2 Saturation (94-97) % Sodium (137-145) mmol/L Potassium 3.1 L (3.5-5.1) mmol/L Chloride (98-107) mmol/L BUN (7-17) mg/dL Creatinine (0.52-1.04) mg/dL Glucose (74-99) mg/dL POC Glucose (mg/dL) 200 H (75-99) mg/dL Calcium (8.4-10.2) mg/dL Alkaline Phosphatase (38-126) U/L Total Protein (6.3-8.2) g/dL Albumin (3.5-5.0) g/dL 10/11/21 10/11/21 10/11/21 Range/Units 04:00 05:29 05:40 WBC (3.8-10.6) k/uL RBC (3.80-5.40) m/uL Hgb (11.4-16.0) gm/dL Hct (34.0-46.0) % MCHC (31.0-37.0) g/dL RDW (11.5-15.5) % Neutrophils # (1.3-7.7) k/uL Lymphocytes # (1.0-4.8) k/uL ABG pH 7.50 H (7.35-7.45) ABG HCO3 27 H (21-25) mmol/L ABG Total CO2 28 H (19-24) mmol/L ABG O2 Saturation 97.4 H (94-97) % Sodium 151 H (137-145) mmol/L Potassium 3.0 L (3.5-5.1) mmol/L Chloride 115 H (98-107) mmol/L BUN 98 H (7-17) mg/dL Creatinine 1.96 H (0.52-1.04) mg/dL Glucose 197 H (74-99) mg/dL POC Glucose (mg/dL) 186 H (75-99) mg/dL Calcium 7.2 L (8.4-10.2) mg/dL Alkaline Phosphatase 180 H (38-126) U/L Total Protein 3.4 L (6.3-8.2) g/dL Albumin 1.8 L (3.5-5.0) g/dL Assessment and Plan Assessment: Altered mental status due to multi-factorial: Metabolic encephalopathy with acute kidney insufficiency, electrolyte abnormality and COVID-19 pneumonia. IV Precedex has been off since 10/09/21. Septic shock due to abdominal sepsis Acute COVID-19 pneumonia is possible Acute hypernatremia--most recent is 15 Acute pneumoperitoneum and abdominal sepsis with perforation of sigmoid requiring surgery, colostomy Acute hypoxia worsens her failure and is intubated on the ventilator Chronic kidney disease--- trending down Chronic atrial fibrillation and was on Eliquis at home History of kidney transplantation on immunosuppressant therapy (CellCept, prednisone and cyclosporine) History of breast cancer/lobular carcinoma in situ requiring surgery only Plan: * Routine EEG on 10/07/2020 is abnormal. The background slowing is suggestive of moderate to severe encephalopathy. There is no focal slowing, epileptiform discharges or seizure on the EEG. * 2.5hour EEG on 10/08/21: Is reported as abnormal 2.5 hour EEG. No clinical or electrographic seizures were reported. No epileptiform activity was present. This was predominantly a sleep EEG. During rare periods of relatively maximal arousal, diffuse theta range slowing was seen which was not epileptiform in nature. These findings indicate moderate diffuse cerebral dysfunction which may be in part due to medication effect. I personally felt ?frontal sharp and wave was noted over right>left. * Therefore, I started the patient on prophylactic Vimpat 50mg bid IV. * 2.5hour EEG on 10/09/2021: Is reported as abnormal EEG. The triphasic waves mentioned above are not epileptiform in nature. Triphasic waves can be seen in the setting of metabolic encephalopathy. The diffuse synchronous and asynchronous theta and delta range slowing, frontally predominant mentioned above is not epileptiform in nature. In combination, these findings indicate moderate diffuse cerebral dysfunction. No seizure were recorded. No epileptiform activity the was present. * CT head 10/07/2021: Is reported as cerebral atrophy and chronic small vessel ischemia. No acute intracranial abnormality. * Every 2 neurochecks * Nephrology is on board * Will defer the hypernatremia management to Nephrology and primary team. * Infection disease team is on board * Cardiology is on board. She is currently on Eliquis 2.5mg 1 tab bid. * We'll defer the rest of medical management to the primary team. * Condition: Is critical and appears poor. The plan is discussed with the nurse. I spoke with the patient's daughter (Milana) via phone multiple times regarding patient's condition and she stated she needs to talk to rest of family. Esdras Swift M.D. Neuro-Hospitalist. Time with Patient: Less than 30
[2021-10-11 11:19] LABS: Glucose,Whole Blood 202 mg/dL (75-99)
--- NOTE | 2021-10-11 11:42 | P.PN ---
Subjective Progress Note Date: 10/11/21 The patient is a 81-year-old female admitted with bowel perforation. Patient is mechanically ventilated for acute hypoxic respiratory failure. Patient has a history of permanent atrial fibrillation on Eliquis, TIA, hypertension, dyslipidemia, kidney transplant x2 on immunosuppressive therapy. Patient is mechanically ventilated resting in bed, with no signs of acute distress. She continues to remain in atrial fibrillation with a controlled ventricle rate. Patient has become tachycardic with a heart rate in the low 100s. Will increase metoprolol tartrate to 50 mg twice a day. Blood pressure is better controlled today 121/77. She remains mechanically ventilated. She is still on IV Lasix. We continue to replace potassium. She is getting another dose of albumin today. She remains off sedation, still no respond to voice, touch, or withdrawal to pain. Neurology is to call and speak to the family about their wishes. She remains on Eliquis for anticoagulation. Blood pressure 121/77 heart rate 11, respirations 29, mechanically ventilated, afebrile. Diagnostics: EKG shows patient remains in atrial fibrillation with an controlled ventricle response. Chest x-ray is indicative of pneumonia or edema, possible effusion Labs reviewedhemoglobin 8.5, platelet count 308, sodium 151, potassium 3, BUN 98, creatinine 1.96, albumin 1.8 Objective - Vital Signs Vital signs: Vital Signs Temp 98.3 F 10/11/21 04:00 Pulse 93 10/11/21 10:00 Resp 31 H 10/11/21 10:00 BP 121/77 10/11/21 10:00 Pulse Ox 98 10/11/21 10:00 Intake & Output 10/10/21 10/11/21 10/11/21 18:59 06:59 18:59 Intake Total 1682 2012 766 Output Total 1265 1660 975 Balance 417 353 -209 Weight 73.2 kg Intake: IV 749 1103 442 0.9 260 220 80 Albumin Human 25% 50 ml 50 50 50 In Empty Bag 1 bag @ 50 mls/hr IVPB BID [facility] Rx#: [id number] Anidulafungin 100 mg In 100 100 Sodium Chloride 0.9% 100 ml @ 84 mls/hr IVPB DAILY [facility] Rx#:[id number] Piperacillin-Tazobactam 3 100 100 100 .375 gm In Sodium Chloride 0.9% 100 ml @ 25 mls/hr IVPB Q12H [facility] Rx# :[id number] Potassium Chloride 10 meq 500 In Water For Injection 1 100ml.bag @ 100 mls/hr IVPB Q1HR [facility] Rx#: [id number] Pressure Bag 39 33 12 metroNIDAZOLE-NS PMX 500 200 200 100 mg In Saline 1 100ml.bag @ 100 mls/hr IVPB Q6H [facility] Rx#:[id number] Intake, IV Titration 50 Amount Albumin Human 25% 50 ml 50 In Empty Bag 1 bag @ 50 mls/hr IVPB BID [facility] Rx#: [id number] Tube Feeding 403 310 124 Other 480 600 200 Output: Urine 865 1160 475 Stool 400 500 500 Other: Voiding Method Indwelling Catheter Indwelling Catheter Indwelling Catheter ABP, PAP, CO, CI - Last Documented Arterial Blood Pressure 170/80 - Exam Physical exam limited to COVID positive PHYSICAL EXAM: VITAL SIGNS: Reviewed. GENERAL: Well-developed in no acute distress. HEENT: Head is normocephalic. NECK: Supple. No JVD or thyromegaly RESPIRATORY: Respirations even and unlabored. Patient mechanically ventilated - Labs CBC & Chem 7: 10/11/21 04:00 10/11/21 10:38 Labs: Abnormal Lab Results - Last 24 Hours (Table) 10/10/21 10/10/21 10/10/21 Range/Units 10:00 11:42 17:20 WBC (3.8-10.6) k/uL RBC (3.80-5.40) m/uL Hgb (11.4-16.0) gm/dL Hct (34.0-46.0) % MCHC (31.0-37.0) g/dL RDW (11.5-15.5) % Neutrophils # (1.3-7.7) k/uL Lymphocytes # (1.0-4.8) k/uL ABG pH (7.35-7.45) ABG HCO3 (21-25) mmol/L ABG Total CO2 (19-24) mmol/L ABG O2 Saturation (94-97) % Sodium (137-145) mmol/L Potassium 3.3 L (3.5-5.1) mmol/L Chloride (98-107) mmol/L BUN (7-17) mg/dL Creatinine (0.52-1.04) mg/dL Glucose (74-99) mg/dL POC Glucose (mg/dL) 217 H 209 H (75-99) mg/dL Calcium (8.4-10.2) mg/dL Alkaline Phosphatase (38-126) U/L Total Protein (6.3-8.2) g/dL Albumin (3.5-5.0) g/dL 10/10/21 10/10/21 10/11/21 Range/Units 18:00 23:52 04:00 WBC 20.8 H (3.8-10.6) k/uL RBC 2.93 L (3.80-5.40) m/uL Hgb 8.5 L (11.4-16.0) gm/dL Hct 28.6 L (34.0-46.0) % MCHC 29.9 L (31.0-37.0) g/dL RDW 15.8 H (11.5-15.5) % Neutrophils # 19.0 H (1.3-7.7) k/uL Lymphocytes # 0.8 L (1.0-4.8) k/uL ABG pH (7.35-7.45) ABG HCO3 (21-25) mmol/L ABG Total CO2 (19-24) mmol/L ABG O2 Saturation (94-97) % Sodium (137-145) mmol/L Potassium 3.1 L (3.5-5.1) mmol/L Chloride (98-107) mmol/L BUN (7-17) mg/dL Creatinine (0.52-1.04) mg/dL Glucose (74-99) mg/dL POC Glucose (mg/dL) 200 H (75-99) mg/dL Calcium (8.4-10.2) mg/dL Alkaline Phosphatase (38-126) U/L Total Protein (6.3-8.2) g/dL Albumin (3.5-5.0) g/dL 10/11/21 10/11/21 10/11/21 Range/Units 04:00 05:29 05:40 WBC (3.8-10.6) k/uL RBC (3.80-5.40) m/uL Hgb (11.4-16.0) gm/dL Hct (34.0-46.0) % MCHC (31.0-37.0) g/dL RDW (11.5-15.5) % Neutrophils # (1.3-7.7) k/uL Lymphocytes # (1.0-4.8) k/uL ABG pH 7.50 H (7.35-7.45) ABG HCO3 27 H (21-25) mmol/L ABG Total CO2 28 H (19-24) mmol/L ABG O2 Saturation 97.4 H (94-97) % Sodium 151 H (137-145) mmol/L Potassium 3.0 L (3.5-5.1) mmol/L Chloride 115 H (98-107) mmol/L BUN 98 H (7-17) mg/dL Creatinine 1.96 H (0.52-1.04) mg/dL Glucose 197 H (74-99) mg/dL POC Glucose (mg/dL) 186 H (75-99) mg/dL Calcium 7.2 L (8.4-10.2) mg/dL Alkaline Phosphatase 180 H (38-126) U/L Total Protein 3.4 L (6.3-8.2) g/dL Albumin 1.8 L (3.5-5.0) g/dL 10/11/21 10/11/21 Range/Units 10:38 11:17 WBC (3.8-10.6) k/uL RBC (3.80-5.40) m/uL Hgb (11.4-16.0) gm/dL Hct (34.0-46.0) % MCHC (31.0-37.0) g/dL RDW (11.5-15.5) % Neutrophils # (1.3-7.7) k/uL Lymphocytes # (1.0-4.8) k/uL ABG pH (7.35-7.45) ABG HCO3 (21-25) mmol/L ABG Total CO2 (19-24) mmol/L ABG O2 Saturation (94-97) % Sodium (137-145) mmol/L Potassium 2.9 L (3.5-5.1) mmol/L Chloride (98-107) mmol/L BUN (7-17) mg/dL Creatinine (0.52-1.04) mg/dL Glucose (74-99) mg/dL POC Glucose (mg/dL) 202 H (75-99) mg/dL Calcium (8.4-10.2) mg/dL Alkaline Phosphatase (38-126) U/L Total Protein (6.3-8.2) g/dL Albumin (3.5-5.0) g/dL Assessment and Plan Assessment: Atrial fibrillation with a controlled ventricular rate Acute hypoxic respiratory failure secondary to Covid requiring mechanical vent ilation Septic shock secondary to acute abdominal pneumoperitoneum Improved thrombocytopenia Hypokalemia History of hypertension History of hyperlipidemia History of kidney transplant containing on immunosuppressants Plan: change lopressor to 50mg BID for heart rate control Continue with Eliquis for anticoagulation due to improved thrombocytopenia, continue to monitor platelet count closely Continue all other current cardiac medications Continue with telemetry monitoring Replace potassium per protocol Further recommendations based on clinical course. The above impression and plan of care have been discussed and directed by the signing physician. Macy Orosco, nurse practitioner, acting as scribe for signing physician.
[2021-10-11] MEDS: DEXMEDETOMIDINE/0.9% NACL(PMX) 400 MCG in EMPTY BAG 1 BAG IV SCH (13:00)
[2021-10-11] MEDS: POTASSIUM BICARBONATE/CIT AC 20 MEQ TABLET.EFF PO SCH ×2 (13:25→14:24)
--- NOTE | 2021-10-11 13:32 | P.PN ---
Subjective Progress Note Date: 10/11/21 Principal diagnosis: Acute pneumoperitoneum secondary to acute sigmoid colon perforation status post colectomy and diverting colostomy postoperative day #10 10/05 2021, the patient is postop day #4. Remains on a mechanical ventilator. He remains sedated with propofol and the patient is currently on 15 mcg/kg per minute. She is adequately sedated for now. She remains on a mechanical ventilator on assist control mode at the rate of 26, tidal volume of 300, FiO2 of 40% with a PEEP of 5. The blood gas from today shows a father respiratory alkalosis and metabolic alkalosis. PH is at 7.54 with a pCO2 of 37 and pO2 of 80. Chest x-ray showing some atelectatic changes and small effusion the lung bases bilaterally. ET tube is in a good location. There is some mild increase in interstitial markings. Note that the patient is a case of Coumadin nightly related pneumonia also. Hemodynamically, the patient is doing better. She has been weaned off on norepinephrine which is currently running at 0.02 microvascular kilogram per minute and vasopressin remains on a physiologic dose. Her renal function continues to improve in the creatinine is down to 2.7. The patient was also having issues with hypocalcemia. She required calcium placement and her serum calcium total currently is up to 6.3. Ionized calcium is pending for now. Her serum albumin was down to 1.6. Her colostomy was functional and she was started on enteral feeding for nutritional support and she is currently on Nepro at the rate of 23 mL an hour. Another concern is her thrombocytopenia as the patient developed consumptive thrombocytopenia. She is currently on anticoagulation with Eliquis. No bleeding. I am concerned about the potential of bleeding this patient I'm recommending discontinuation of the Eliquis for now. We'll continue the combination of Zosyn and Flagyl as broad-spectrum antibiotic coverage. Cultures of been all negative. Bowel sounds are still hypoactive. The patient will need obviously a sedation holiday today and her candidacy for further weaning will be assessed. 10/06 2021, the patient is still on a mechanical ventilator. The patient is postop day #5. This morning, the patient is off sedation. Once off propofol, the patient's blood pressures improved and the patient is also off pressors. Meanwhile, she is still quite sedated. She is not showing adequate neurological recovery or alertness at this point in time and her mental status is being monit ored. She remains on a mechanical ventilator. She had an assist-control at the rate of 26, tidal volume of 300, FiO2 of 40% with a PEEP of 5. The blood gases from today shows a pH of 7.52 with a pCO2 of 41 and pO2 of 66. Chest x-ray shows small bilateral pleural effusions. ET tube is in a good location. There is improved aeration bilaterally. Meanwhile, as mentioned, the patient is off pressors. Platelet counts have improved up to 5072. The white cell count is at 28 with a hemoglobin 11.9.5. Renal function shows a creatinine of 2.6 which is stable. BUN is at 61. Sodium is at 138. The patient remains on examination Zosyn and Flagyl. IV fluids are running at the rate of 20 mL an hour. The patient is off pressors. The patient is on stress dose hydrocortisone regarding her chronic steroid use. In terms of feeding, the patient was started on Nepro which is running at the rate of 23 mL an hour. The patient is producing stool at this point in time. Her cardiac rhythm is still in atrial fibrillation. The rate is controlled. We have stopped anticoagulation due to concern of underlying thrombocytopenia. Her thrombocytopenia was essentially consumptive related to sepsis. Patient was reevaluated today on 10/07/2021, remains in the ICU, intubated and mechanically ventilated, patient is on assist control rate of 16, volume 300 FiO2 40% and PEEP of 5. ABG showed a pO2 of 56, pCO2 33, pH of 7.59. Patient is off sedation now for the last 2 days, and does not seem to be making any neurological improvement, she is hemodynamically stable, she is in atrial fibrillation with a rate of 1:15, she is on Lovenox, the dose was increased to 30 mg subcu twice a day. Patient seems to be hypercapnic, and instead of using propofol, I'm recommending Precedex, and will be titrated accordingly. I'm also recommending a brain CT today and a neurological consultation. Lovenox was increased to twice a day dosing mostly because of her ongoing atrial fibrillation. And she does have renal failure. Ventilator mcdowell, I recommended that we stay on the same vent settings, I did increase the flow to 60 L/m. See count is 26.2 hemoglobin is 9.4. Basic metabolic profile is normal however her BUN is 83 creatinine 2.16, patient is being followed by nephrology. Asked x-ray showed mostly bibasilar airspace disease, patient did test positive for COVID-19 infection however her chest x-ray is not basically typical of COVID-19 pneumonia, and the patient is not requiring significant FiO2 and significant PEEP at this point. Reevaluated today on 10/08/2021, remains in the ICU, intubated and mechanically ventilated. Patient is on assist control rate of 16, volume 300 FiO2 50% and PEEP of 5. ABG showed a pO2 of 77 pCO2 45 pH of 7.43. Patient is only on Precedex for sedation and to keep the patient synchronous with mechanical ventilation without affecting her mental status. She is requiring norepinephrine at 0.1 mcg/kg/m, and she is on antibiotics empirically. Patient is receiving Nepro at 31 mL per hour. Labs showed low potassium of 3.0, being corrected by protocol. Her renal profile is a bit worse with a BUN of 90 creatinine 2.63. LDH is 102 for C-reactive protein is 7.3. WBC count is elevated 30.7 hemoglobin is 8.9 and hematocrit 28.6. Patient is in atrial fibrillation with controlled rate, she is on Eliquis, antibiotics mcdowell she is on Zosyn and Flagyl for her abdominal sepsis. Neurologically, the patient remains unresponsive to any stimuli, she grimaces with deep painful stimuli, otherwise no responses are noted. Neurology has been consulted on this patient. Reevaluated today on 10/09/2021, remains in the ICU, intubated and mechanically ventilated, remains off sedation except Precedex. Patient remains unresponsive to any stimuli. Being followed by neurology, and apparently her family was updated by neurology on her neurological status. Patient is on assist control rate of 16, volume 300 FiO2 50% and PEEP of 5. ABG showed a pO2 of 87 pCO2 40 0 pH of 7.47. Patient is on Precedex which I plan to discontinue, she is on enteral feeding in the form of Nepro, she is at goal. Patient is in atrial fibrillation, but rate seems to be controlled, her rate is 103 today. She is hemodynamically stable. Patient continues to grimace only to deep painful stimuli otherwise no neurological responses, she is in the process of having EEG during my evaluation. Chest x-ray showed mostly COPD with stable bilateral infiltrates and pleural effusion. WBC count today is 28.5 hemoglobin is 9.6. Electrolytes showed slightly elevated sodium of 145 potassium 3.4 BUN is 100 creatinine 2.46. Reevaluated today on 10/10/2021, remains in the ICU, intubated and mechanically ventilated. Patient is presently on assist control rate of 16 tidal volume 300 FiO2 of 50% PEEP of 5. ABG showed a pO2 of 86 pCO2 of 39 pH of 7.47. Patient remains unresponsive to any stimuli, remains off sedation. She is receiving enteral feeding, and it is up to goal in the form of Nepro. Her WBC count is 23.2 hemoglobin is 9.1. Electrolytes are normal except for a sodium of 148, BUN is 105 creatinine 2.27, being followed by nephrology. Chest x-ray is showing mostly atelectasis, and possibly a small left pleural effusion. Underlying pneumonia is not entirely ruled out, possibly COVID-19 related.. Patient remains on her accessory is also on Zosyn. Reevaluated today on 10/11/2021, patient is now postoperative day #10. Remains in the ICU, not much of the changes noted in the last 24 hours, remains unresponsive to any stimuli except a grimacing to deep painful stimuli. Remains on assist control rate of 16 tidal volume 300 FiO2 45% PEEP of 5. Patient is on enteral feeding in the form of Nepro at 35 mL per hour. She is receiving free water flushes to correct her high sodium. Patient is not requiring any drips, she is hemodynamically stable. Remains on antibiotics empirically. Patient is being followed by infectious disease. Patient is also on Eraxis her hydrocortisone dose has been cut down to 50 mg every 8 hours, and I will cut it down today to every 12 hours. Patient is also on Flagyl. Overall the patient is basically about the same, and no significant neurological recovery has been noted in the last 10 days. EEG is suggestive of moderate severe encephalopathy. No epileptiform focus. Objective - Vital Signs Vital signs: Vital Signs Temp 98.2 F 10/11/21 12:00 Pulse 102 H 10/11/21 13:00 Resp 31 H 10/11/21 13:00 BP 132/98 10/11/21 13:00 Pulse Ox 95 10/11/21 13:00 Intake & Output 10/10/21 10/11/21 10/11/21 18:59 06:59 18:59 Intake Total 1681 2012 132 Output Total 1265 1660 575 Balance 417 353 753 Weight 73.2 kg 73.2 kg Intake: IV 749 1103 511 0.9 260 220 140 Albumin Human 25% 50 ml 50 50 50 In Empty Bag 1 bag @ 50 mls/hr IVPB BID [facility] Rx#: [id number] Anidulafungin 100 mg In 100 100 Sodium Chloride 0.9% 100 ml @ 84 mls/hr IVPB DAILY [facility] Rx#:[id number] Piperacillin-Tazobactam 3 100 100 100 .375 gm In Sodium Chloride 0.9% 100 ml @ 25 mls/hr IVPB Q12H [facility] Rx# :[id number] Potassium Chloride 10 meq 500 In Water For Injection 1 100ml.bag @ 100 mls/hr IVPB Q1HR [facility] Rx#: [id number] Pressure Bag 39 33 21 metroNIDAZOLE-NS PMX 500 200 200 100 mg In Saline 1 100ml.bag @ 100 mls/hr IVPB Q6H [facility] Rx#:[id number] Intake, IV Titration 50 Amount Albumin Human 25% 50 ml 50 In Empty Bag 1 bag @ 50 mls/hr IVPB BID [facility] Rx#: [id number] Tube Feeding 403 310 217 Other 480 600 600 Output: Urine 865 1160 475 Stool 400 500 100 Other: Voiding Method Indwelling Catheter Indwelling Catheter Indwelling Catheter ABP, PAP, CO, CI - Last Documented Arterial Blood Pressure 147/78 - Exam Gen: This is an 81-year-old female, intubated and mechanically ventila rain. Unresponsive to any stimuli except grimaces with deep painful stimuli only. Head: Atraumatic, normocephalic. HEENT: PERRLA, EOMI, nonicteric, no neck masses, no JVD. Endotracheal tube is intact. Orogastric tube is intact. NECK: Supple. No JVD. No lymphadenopathy. No thyromegaly. Cardiac: Irregular irregular rhythm, no S3 gallop. 2/6 systolic murmur throughout the precordium. LUNGS: Symmetrical chest expansion crackles at the bases. Abdomen: Colostomy bag is intact, seems to be functional EXTREMITIES: 1+ bipedal edema, good pulses bilaterally. NEUROLOGICAL: Patient is intubated, grimaces to deep painful stimuli. Psychiatric: Cannot assess. Grimaces only to deep painful stimuli. - Labs CBC & Chem 7: 10/11/21 04:00 10/11/21 10:38 Labs: Abnormal Lab Results - Last 24 Hours (Table) 10/10/21 10/10/21 10/10/21 Range/Units 17:20 18:00 23:52 WBC (3.8-10.6) k/uL RBC (3.80-5.40) m/uL Hgb (11.4-16.0) gm/dL Hct (34.0-46.0) % MCHC (31.0-37.0) g/dL RDW (11.5-15.5) % Neutrophils # (1.3-7.7) k/uL Lymphocytes # (1.0-4.8) k/uL ABG pH (7.35-7.45) ABG HCO3 (21-25) mmol/L ABG Total CO2 (19-24) mmol/L ABG O2 Saturation (94-97) % Sodium (137-145) mmol/L Potassium 3.1 L (3.5-5.1) mmol/L Chloride (98-107) mmol/L BUN (7-17) mg/dL Creatinine (0.52-1.04) mg/dL Glucose (74-99) mg/dL POC Glucose (mg/dL) 209 H 200 H (75-99) mg/dL Calcium (8.4-10.2) mg/dL Alkaline Phosphatase (38-126) U/L Total Protein (6.3-8.2) g/dL Albumin (3.5-5.0) g/dL 10/11/21 10/11/21 10/11/21 Range/Units 04:00 04:00 05:29 WBC 20.8 H (3.8-10.6) k/uL RBC 2.93 L (3.80-5.40) m/uL Hgb 8.5 L (11.4-16.0) gm/dL Hct 28.6 L (34.0-46.0) % MCHC 29.9 L (31.0-37.0) g/dL RDW 15.8 H (11.5-15.5) % Neutrophils # 19.0 H (1.3-7.7) k/uL Lymphocytes # 0.8 L (1.0-4.8) k/uL ABG pH (7.35-7.45) ABG HCO3 (21-25) mmol/L ABG Total CO2 (19-24) mmol/L ABG O2 Saturation (94-97) % Sodium 151 H (137-145) mmol/L Potassium 3.0 L (3.5-5.1) mmol/L Chloride 115 H (98-107) mmol/L BUN 98 H (7-17) mg/dL Creatinine 1.96 H (0.52-1.04) mg/dL Glucose 197 H (74-99) mg/dL POC Glucose (mg/dL) 186 H (75-99) mg/dL Calcium 7.2 L (8.4-10.2) mg/dL Alkaline Phosphatase 180 H (38-126) U/L Total Protein 3.4 L (6.3-8.2) g/dL Albumin 1.8 L (3.5-5.0) g/dL 10/11/21 10/11/21 10/11/21 Range/Units 05:40 10:38 11:17 WBC (3.8-10.6) k/uL RBC (3.80-5.40) m/uL Hgb (11.4-16.0) gm/dL Hct (34.0-46.0) % MCHC (31.0-37.0) g/dL RDW (11.5-15.5) % Neutrophils # (1.3-7.7) k/uL Lymphocytes # (1.0-4.8) k/uL ABG pH 7.50 H (7.35-7.45) ABG HCO3 27 H (21-25) mmol/L ABG Total CO2 28 H (19-24) mmol/L ABG O2 Saturation 97.4 H (94-97) % Sodium (137-145) mmol/L Potassium 2.9 L (3.5-5.1) mmol/L Chloride (98-107) mmol/L BUN (7-17) mg/dL Creatinine (0.52-1.04) mg/dL Glucose (74-99) mg/dL POC Glucose (mg/dL) 202 H (75-99) mg/dL Calcium (8.4-10.2) mg/dL Alkaline Phosphatase (38-126) U/L Total Protein (6.3-8.2) g/dL Albumin (3.5-5.0) g/dL Assessment and Plan Assessment: Impression: Acute hypoxic respiratory failure, multifactorial Acute pneumoperitoneum and abdominal sepsis with perforation of sigmoid. Requiring surgery, colostomy, postoperative day #10 Septic shock due to abdominal sepsis Acute COVID-19 pneumonia is possible. History of kidney transplantation, on immunosuppressive therapy, patient is normally on CellCept prednisone and cyclosporine Chronic kidney disease stage III Chronic atrial fibrillation, on anticoagulation therapy COVID-19 infection possible pneumonia, vaccination status is unknown Osteoporosis History of breast cancer/lobular carcinoma in situ requiring surgery only Thrombocytopenia secondary to sepsis. acute metabolic encephalopathy and change in mental status. CT brain and EEG were noted. Recommendation: Continue ventilatory support , cannot wean patient from mechanical ventilation unless her neurological status improves, otherwise may have to seriously considered tracheostomy on this patient. Continue antibiotics, and antifungal therapy, patient is on Eraxis, Zosyn, and Flagyl. Continue hydrocortisone at 50 mg twice a day, patient is chronically on steroids. Continue Eliquis. Continue to monitor daily electrolytes and labs. And adjust according to metabolic abnormalities. Continue antibiotics. Continue patient off immunosuppression Continue vitamin D Continue GI prophylaxis/Protonix Continue to hold sedatives. Patient is critically ill, critical care time is over 30 minutes. Time with Patient: Greater than 30
--- NOTE | 2021-10-11 14:38 | P.PN ---
Subjective Progress Note Date: 10/11/21 HISTORY OF PRESENT ILLNESS This is an 81-year-old pleasant female patient of Dr. Henao, with known history of hypertension, CK D stage III, paroxysmal atrial fibrillation admitted through the emergency room secondary to abdominal pain and found to have pneumoperitoneum. She has significant discomfort, accompanied by nausea, vomiting, no fever. She presented to emergency room with normal findings, in the CAT scan showing moderate pneumoperitoneum, with small bowel thickening, and mild dilatation saray a of the mesenteric considered for mesenteric ischemia there is a left-sided pelvic cystic mass. Chest x-ray shows atelectasis, She is hypotensive, when seen, lactic acid level is high at 12, she was having difficulty of breathing with tachypnea, hence she was preemptively intubated in the emergency room,. She was placed on assist-control, rate of 26, FiO2 40%, PEEP of 5 at the volume of 300. She was sent ICU for stabilization requiring norepinephrine infusion at 0.5 mcg/kg/m for hypotension and septic shock, she received 3.5 L of normal saline for which she is now undergoing exploratory laparotomy. Consult was made with Dr. Price surgeon, and Dr. Nino, critical care ICU physician incidentally, she was tested confirmed Covid positive, on October 0110/02: Patient is seen today in the intensive care unit, remains intubated and on mechanical ventilation with tidal volume 300, FiO2 40 and PEEP of 5. Patient is currently on propofol, bicarb drip, amiodarone is being started for A. fib. Patient is on antibiotics the form of Zosyn and Flagyl. Repeat chest x-ray reveals basilar atelectasis, correlate to exclude pneumonia, possible effusion. Patient is followed by infectious disease, cardiology, manager employee benefits, nephrology, general surgery. Repeat blood work today reveals WBC 24.6, hemoglobin 12.1, platelet count 123. Sodium 136, potassium 4.5, chloride 109, CO2 11, BUN 38 creatinine 3.04. Calcium 5.9. AST 109. Patient remains in isolation for Covid 19. 10/03: Remains intubated on mechanical ventilation with tidal volume 300, FiO2 40, PEEP of 5. She has had very minimal amount output on ostomy. She has been on high-dose levo fed started on vasopressin as well and heparin drip is off due to elevated PTT. She has no output from her OG. Urine output has improved. 10/04: She remains intubated and on mechanical ventilation with tidal volume 300, FiO2 40 and PEEP of 5. Patient started having output from ostomy last evening, liquid brown approximate 950 ML's. Calcium is being replaced. She is still on low-dose norepinephrine and vasopressin as well as IV fluids. Anticipate she will start oral medications and feedings today. Chest x-ray reveals stable bilateral infiltrate and pleural effusion. 10/05 patient remains intubated, PEEP of 5, O2 40% Dilaudid, pressures are little bit on the lower side, still with norepinephrine titrated with bp, NG feedings at 23 mL an hour, output noted in colostomy, no plans for vent weaning at this time in output is adequate patient is on Cortef 100 mg every 8 hours, was on oral prednisone chronically prior to admission. Ahlquist is still on hold, on IV Zosyn and Flagyl 10/06 and 20 rate in the 110s, blood pressure 125/92, remains to be intubated, assist control 16, with FiO2 40%, PEEP of 5. Slightly labored breathing colostomy, without no blood, NG feedings. On Zosyn and Flagyl multiple specialists following, patient remains in ICU 10/07: Patient remains intubated and on mechanical ventilation with tidal volume 300, FiO2 50 and PEEP of 5. Patient remains unresponsive. She is off vasopressors. She is on tube feedings. Urine output has been 30-40 mL per hour. Cardiology is on consult for atrial fibrillation with RVR and started Lopressor 25 mg twice daily. Chest x-ray reveals correlate for congestive heart failure with basilar effusions and associated atelectasis versus edema, pneumonia not excluded. 10/08: Patient remains in the intensive care unit. She has been off propofol. She is on Precedex and remains intubated on mechanical ventilation with tidal volume 300, FiO2 50, PEEP of 5. Patient's been cleared start eliquis tomorrow by Dr. Price. She is on levo fed which is being weaned down. She has had output from her ostomy. EEG is abnormal with background slowing suggestive of moderate to severe encephalopathy. 10/09: Patient remains in the intensive care unit intubated and on mechanical ventilation with tidal volume 300, FiO2 50, PEEP of 5. Patient is back on norep inephrine this morning with significant increase in blood pressure, now norepinephrine is off. Precedex has been weaned. Patient has not showed any purposeful movements. Patient is afebrile, heart rate 92, blood pressure 122/73, respiratory rate 31, pulse ox 96%. WBC 28.5, hemoglobin 9.6. Potassium 3.4, chloride 108, BUN 100, creatinine 2.46. Blood sugars are between 185 and 202. Alkaline phosphatase 217. C-reactive protein 5.5. Patient remains in isolation due to Covid [address] Kahn has started the patient on Eraxis. 10/10: Patient remains intubated on mechanical ventilation with tidal volume 300, FiO2 50, PEEP of 5. She remains unresponsive to stimuli and off sedation. She is on tube feedings at goal. Repeat blood work reveals WBC 23.2, hemoglobin 9.1. Sodium 148, BUN 105, creatinine 2.27. 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 Repeat chest x-ray reveals atelectasis and possibly small left pleural effusion. Underlying pneumonia not entirely ruled out, possibly Covid 19 related. She has been afebrile, heart rate 106, respiratory rate 31, blood pressure 97/63. Albumin has been ordered by Dr. Sampson. She is continued on Eraxis, Flagyl, Zosyn. Dr. Bucio updated patient's daughter over the phone. At this time, she does not feel she has enough information to make any decisions such as CODE STATUS. She will discuss with her 2 brothers. 10/11: Patient remains intubated and on mechanical ventilation with tidal volume 300, FiO2 45 and PEEP of 5. She received a dose of Lasix today and has good urine output. Scheduled for albumin infusion today. No significant change. She remains unresponsive and is off sedation. Review of SYSTEMS ROS unobtainable: due to endotracheal tube PHYSICAL EXAMINATION Gen: This is an 81-year-old female, resting on the ICU bed and appears to be comfortable. ET and orogastric tube in place. HEENT: Head is atraumatic, normocephalic. Pupils equal, round. Sclerae is anicteric. NECK: Supple. No JVD. No lymphadenopathy. No thyromegaly. LUNGS: Clear to auscultation. No wheezes or rhonchi. No intercostal retractions. HEART: Regular rate and rhythm. No murmur. ABDOMEN: Soft. Mild abdominal distention. No tenderness. No output in colostomy bag. Reyes catheter is in place draining meir urine. EXTREMITIES: No pedal edema. No calf tenderness. NEUROLOGICAL: Patient is intubated. Patient is unresponsive to verbal and painful stimuli. No purposeful movement. ASSESSMENT AND PLAN 1. Acute pneumoperitoneum, with peritonitis considered for small bowel perforation, underlying ischemic bowel and abdominal sepsis 2. Acute hypoxic respiratory failure requiring mechanical intubation. General surgery, is status post exploratory laparotomy 10/01/2020. Continue Eraxis, Zosyn and Flagyl. Patient is on stress dose of hydrocortisone 50 mg every 8 hours. 3. Small bowel perforation suspected, with septic shock, explore lap on 10/01/1908/10/2022, IV Zosyn 4. Septic shock, severe lactic acidosis, IV antibiotics, with fluids w pressors 5. History of kidney transplantation, on immunosuppressive agent, CellCept and prednisone and cyclosporine 6. Acute allograft dysfunction secondary to ATN secondary to hypotension and shock CKD, suspect stage III, relative consult appreciated. 7. chronic atrial fibrillation, with prior TIA. Patient is on liquids, Lopressor 25 mg 3 times daily daily, cardiology consult appreciated. 8. Covid 19 infection, unknown infection time and onset of signs and symptoms, vaccination status not Determined, consult Dr. Kahn 9. Metabolic encephalopathy. Patient is followed by neurology. No improvement of her condition off sedation. Patient is status post EEG 3 with no seizure activity. Patient was started on Vimpat by neurology. 10. Breast cancer, with lobular carcinoma in situ, had surgery for these activity unknown, 11. 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 Carmona. 12. Hypocalcemia. Continue to monitor and replace 13. Thrombocytopenia secondary to sepsis. Continue to monitor. 14. DVT prophylaxis GI prophylaxis CODE STATUS, full until specified Prognosis guarded. Impression and plan of care have been directed as dictated by the signing physic ian. Cierra Rodas nurse practitioner acting as scribe for signing physician. Objective - Vital Signs Vital signs: Vital Signs Temp 98.3 F 10/11/21 04:00 Pulse 93 10/11/21 10:00 Resp 31 H 10/11/21 10:00 BP 121/77 10/11/21 10:00 Pulse Ox 98 10/11/21 10:00 Intake & Output 10/10/21 10/11/21 10/11/21 18:59 06:59 18:59 Intake Total 1682 2012 766 Output Total 1265 1660 975 Balance 417 353 -209 Weight 73.2 kg Intake: IV 749 1103 442 0.9 260 220 80 Albumin Human 25% 50 ml 50 50 50 In Empty Bag 1 bag @ 50 mls/hr IVPB BID [facility] Rx#: [id number] Anidulafungin 100 mg In 100 100 Sodium Chloride 0.9% 100 ml @ 84 mls/hr IVPB DAILY [facility] Rx#:[id number] Piperacillin-Tazobactam 3 100 100 100 .375 gm In Sodium Chloride 0.9% 100 ml @ 25 mls/hr IVPB Q12H [facility] Rx# :[id number] Potassium Chloride 10 meq 500 In Water For Injection 1 100ml.bag @ 100 mls/hr IVPB Q1HR [facility] Rx#: [id number] Pressure Bag 39 33 12 metroNIDAZOLE-NS PMX 500 200 200 100 mg In Saline 1 100ml.bag @ 100 mls/hr IVPB Q6H [facility] Rx#:[id number] Intake, IV Titration 50 Amount Albumin Human 25% 50 ml 50 In Empty Bag 1 bag @ 50 mls/hr IVPB BID [facility] Rx#: [id number] Tube Feeding 403 310 124 Other 480 600 200 Output: Urine 865 1160 475 Stool 400 500 500 Other: Voiding Method Indwelling Catheter Indwelling Catheter Indwelling Catheter ABP, PAP, CO, CI - Last Documented Arterial Blood Pressure 170/80 - Labs CBC & Chem 7: 10/11/21 04:00 10/11/21 10:38 Labs: Abnormal Lab Results - Last 24 Hours (Table) 10/10/21 10/10/21 10/10/21 Range/Units 17:20 18:00 23:52 WBC (3.8-10.6) k/uL RBC (3.80-5.40) m/uL Hgb (11.4-16.0) gm/dL Hct (34.0-46.0) % MCHC (31.0-37.0) g/dL RDW (11.5-15.5) % Neutrophils # (1.3-7.7) k/uL Lymphocytes # (1.0-4.8) k/uL ABG pH (7.35-7.45) ABG HCO3 (21-25) mmol/L ABG Total CO2 (19-24) mmol/L ABG O2 Saturation (94-97) % Sodium (137-145) mmol/L Potassium 3.1 L (3.5-5.1) mmol/L Chloride (98-107) mmol/L BUN (7-17) mg/dL Creatinine (0.52-1.04) mg/dL Glucose (74-99) mg/dL POC Glucose (mg/dL) 209 H 200 H (75-99) mg/dL Calcium (8.4-10.2) mg/dL Alkaline Phosphatase (38-126) U/L Total Protein (6.3-8.2) g/dL Albumin (3.5-5.0) g/dL 10/11/21 10/11/21 10/11/21 Range/Units 04:00 04:00 05:29 WBC 20.8 H (3.8-10.6) k/uL RBC 2.93 L (3.80-5.40) m/uL Hgb 8.5 L (11.4-16.0) gm/dL Hct 28.6 L (34.0-46.0) % MCHC 29.9 L (31.0-37.0) g/dL RDW 15.8 H (11.5-15.5) % Neutrophils # 19.0 H (1.3-7.7) k/uL Lymphocytes # 0.8 L (1.0-4.8) k/uL ABG pH (7.35-7.45) ABG HCO3 (21-25) mmol/L ABG Total CO2 (19-24) mmol/L ABG O2 Saturation (94-97) % Sodium 151 H (137-145) mmol/L Potassium 3.0 L (3.5-5.1) mmol/L Chloride 115 H (98-107) mmol/L BUN 98 H (7-17) mg/dL Creatinine 1.96 H (0.52-1.04) mg/dL Glucose 197 H (74-99) mg/dL POC Glucose (mg/dL) 186 H (75-99) mg/dL Calcium 7.2 L (8.4-10.2) mg/dL Alkaline Phosphatase 180 H (38-126) U/L Total Protein 3.4 L (6.3-8.2) g/dL Albumin 1.8 L (3.5-5.0) g/dL 10/11/21 10/11/21 10/11/21 Range/Units 05:40 10:38 11:17 WBC (3.8-10.6) k/uL RBC (3.80-5.40) m/uL Hgb (11.4-16.0) gm/dL Hct (34.0-46.0) % MCHC (31.0-37.0) g/dL RDW (11.5-15.5) % Neutrophils # (1.3-7.7) k/uL Lymphocytes # (1.0-4.8) k/uL ABG pH 7.50 H (7.35-7.45) ABG HCO3 27 H (21-25) mmol/L ABG Total CO2 28 H (19-24) mmol/L ABG O2 Saturation 97.4 H (94-97) % Sodium (137-145) mmol/L Potassium 2.9 L (3.5-5.1) mmol/L Chloride (98-107) mmol/L BUN (7-17) mg/dL Creatinine (0.52-1.04) mg/dL Glucose (74-99) mg/dL POC Glucose (mg/dL) 202 H (75-99) mg/dL Calcium (8.4-10.2) mg/dL Alkaline Phosphatase (38-126) U/L Total Protein (6.3-8.2) g/dL Albumin (3.5-5.0) g/dL
--- NOTE | 2021-10-11 15:28 | P.PN ---
Subjective Progress Note Date: 10/10/21 Principal diagnosis: Secondary peritonitis from perforated diverticulitis and covid 19 infection Patient is an 81-year-old female who presented to the hospital with abdominal pain. This patient noticed to have perforated sigmoid diverticulitis status post laparotomy, sigmoid colectomy and diverting colostomy. Also had positive COVID test. On today's evaluation, that is 10/10/2021, The patient is afebrile, the patient is hemodynamically stable not requiring any pressor support, the patient FiO2 is stable at 50% no significant purulent secretion through the ET has been reported by nursing staff and no diarrhea reported by the nursing staff Objective - Vital Signs Vital signs: Vital Signs Temp 97.7 F 10/10/21 12:00 Pulse 93 10/10/21 13:00 Resp 30 H 10/10/21 13:00 BP 119/86 10/10/21 13:00 Pulse Ox 96 10/10/21 13:00 Intake & Output 10/09/21 10/10/21 10/10/21 18:59 06:59 18:59 Intake Total 976.283 938 958 Output Total 1227 992 690 Balance -250.717 -54 268 Weight 72 kg 72.2 kg Intake: IV 576 476 511 0.9 240 240 140 Albumin Human 25% 50 ml 50 In Empty Bag 1 bag @ 50 mls/hr IVPB BID [facility] Rx#: [id number] Anidulafungin 100 mg In 100 Sodium Chloride 0.9% 100 ml @ 84 mls/hr IVPB DAILY [facility] Rx#:[id number] Piperacillin-Tazobactam 3 100 100 100 .375 gm In Sodium Chloride 0.9% 100 ml @ 25 mls/hr IVPB Q12H [facility] Rx# :[id number] Pressure Bag 36 36 21 metroNIDAZOLE-NS PMX 500 200 100 100 mg In Saline 1 100ml.bag @ 100 mls/hr IVPB Q6H [facility] Rx#:[id number] Intake, IV Titration 307.283 50 Amount Albumin Human 25% 50 ml 50 In Empty Bag 1 bag @ 50 mls/hr IVPB BID [facility] Rx#: [id number] Anidulafungin 100 mg In 100 Sodium Chloride 0.9% 100 ml @ 84 mls/hr IVPB DAILY [facility] Rx#:[id number] Calcium Gluconate 1 gm In 100 Sodium Chloride 0.9% 100 ml @ 100 mls/hr IVPB ONCE ONE Rx#:[id number] Dexmedetomidine/0.9% NaCl 55.901 (Pmx) 400 mcg In Empty Bag 1 bag @ 0.2 MCG/KG/HR 3.225 mls/hr IV .Q24H [facility] Rx#:[id number] Lacosamide IV 100 mg In 50 Sodium Chloride 0.9% 50 ml @ 100 mls/hr IVPB ONCE STA Rx#:[id number] Norepinephrine 32 mg In 1.382 Sodium Chloride 0.9% 218 ml @ 0.05 MCG/KG/MIN 1. 329 mls/hr IV .Q24H [facility] Rx#:[id number] Tube Feeding 93 372 217 Other 90 180 Output: Urine 627 692 490 Stool 600 300 200 Other: Voiding Method Indwelling Catheter Indwelling Catheter Indwelling Catheter ABP, PAP, CO, CI - Last Documented Arterial Blood Pressure 135/78 - Exam General description is an elderly female intubated on the vent. Respiratory system: Unlabored breathing, decreased intensity in breath sounds. No wheeze. Heart S1, S2. Regular rate and rhythm. Abdomen soft, no tenderness. Extremities no edema feet - Labs CBC & Chem 7: 10/11/21 04:00 10/11/21 10:38 Labs: Abnormal Lab Results - Last 24 Hours (Table) 10/09/21 10/09/21 10/09/21 Range/Units 04:00 17:35 17:35 WBC (3.8-10.6) k/uL RBC (3.80-5.40) m/uL Hgb (11.4-16.0) gm/dL Hct (34.0-46.0) % MCHC (31.0-37.0) g/dL RDW (11.5-15.5) % Neutrophils # (1.3-7.7) k/uL Lymphocytes # (1.0-4.8) k/uL ABG pH (7.35-7.45) ABG HCO3 (21-25) mmol/L ABG Total CO2 (19-24) mmol/L ABG O2 Saturation (94-97) % Sodium (137-145) mmol/L Potassium (3.5-5.1) mmol/L Chloride (98-107) mmol/L BUN (7-17) mg/dL Creatinine (0.52-1.04) mg/dL Glucose (74-99) mg/dL POC Glucose (mg/dL) 208 H 208 H (75-99) mg/dL Calcium (8.4-10.2) mg/dL AST (14-36) U/L Alkaline Phosphatase (38-126) U/L Total Protein (6.3-8.2) g/dL Albumin (3.5-5.0) g/dL Procalcitonin 13.70 H (0.02-0.09) ng/mL 10/09/21 10/09/21 10/09/21 Range/Units 17:35 22:00 23:38 WBC (3.8-10.6) k/uL RBC (3.80-5.40) m/uL Hgb (11.4-16.0) gm/dL Hct (34.0-46.0) % MCHC (31.0-37.0) g/dL RDW (11.5-15.5) % Neutrophils # (1.3-7.7) k/uL Lymphocytes # (1.0-4.8) k/uL ABG pH (7.35-7.45) ABG HCO3 (21-25) mmol/L ABG Total CO2 (19-24) mmol/L ABG O2 Saturation (94-97) % Sodium (137-145) mmol/L Potassium 2.9 L (3.5-5.1) mmol/L Chloride (98-107) mmol/L BUN (7-17) mg/dL Creatinine (0.52-1.04) mg/dL Glucose (74-99) mg/dL POC Glucose (mg/dL) 208 H 175 H (75-99) mg/dL Calcium (8.4-10.2) mg/dL AST (14-36) U/L Alkaline Phosphatase (38-126) U/L Total Protein (6.3-8.2) g/dL Albumin (3.5-5.0) g/dL Procalcitonin (0.02-0.09) ng/mL 10/10/21 10/10/21 10/10/21 Range/Units 03:00 03:00 05:21 WBC 23.2 H (3.8-10.6) k/uL RBC 3.23 L (3.80-5.40) m/uL Hgb 9.4 L (11.4-16.0) gm/dL Hct 31.0 L (34.0-46.0) % MCHC 30.3 L (31.0-37.0) g/dL RDW 15.7 H (11.5-15.5) % Neutrophils # 21.3 H (1.3-7.7) k/uL Lymphocytes # 0.7 L (1.0-4.8) k/uL ABG pH (7.35-7.45) ABG HCO3 (21-25) mmol/L ABG Total CO2 (19-24) mmol/L ABG O2 Saturation (94-97) % Sodium 148 H (137-145) mmol/L Potassium (3.5-5.1) mmol/L Chloride 111 H (98-107) mmol/L BUN 105 H* (7-17) mg/dL Creatinine 2.27 H (0.52-1.04) mg/dL Glucose 190 H (74-99) mg/dL POC Glucose (mg/dL) 203 H (75-99) mg/dL Calcium 6.9 L (8.4-10.2) mg/dL AST 37 H (14-36) U/L Alkaline Phosphatase 210 H (38-126) U/L Total Protein 3.1 L (6.3-8.2) g/dL Albumin 1.6 L (3.5-5.0) g/dL Procalcitonin (0.02-0.09) ng/mL 10/10/21 10/10/21 10/10/21 Range/Units 05:38 10:00 11:42 WBC (3.8-10.6) k/uL RBC (3.80-5.40) m/uL Hgb (11.4-16.0) gm/dL Hct (34.0-46.0) % MCHC (31.0-37.0) g/dL RDW (11.5-15.5) % Neutrophils # (1.3-7.7) k/uL Lymphocytes # (1.0-4.8) k/uL ABG pH 7.47 H (7.35-7.45) ABG HCO3 29 H (21-25) mmol/L ABG Total CO2 30 H (19-24) mmol/L ABG O2 Saturation 97.3 H (94-97) % Sodium (137-145) mmol/L Potassium 3.3 L (3.5-5.1) mmol/L Chloride (98-107) mmol/L BUN (7-17) mg/dL Creatinine (0.52-1.04) mg/dL Glucose (74-99) mg/dL POC Glucose (mg/dL) 217 H (75-99) mg/dL Calcium (8.4-10.2) mg/dL AST (14-36) U/L Alkaline Phosphatase (38-126) U/L Total Protein (6.3-8.2) g/dL Albumin (3.5-5.0) g/dL Procalcitonin (0.02-0.09) ng/mL Assessment and Plan (1) Peritonitis Current Visit: Yes Status: Acute Code(s): K65.9 - PERITONITIS, UNSPECIFIED SNOMED Code(s): 95754244 Plan: 1. Patient with acute respiratory failure, multifactorial in this patient who has perforated sigmoid diverticulitis status post diverting colostomy. The patient Is currently covered with Zosyn which will be continued 2. Elevated white count more likely related to the steroids as the patient high dose hydrocortisone. , The patient white count is trending down with addition of Eraxis and is down to 20 3.2K today, Eraxis will be continued and will monitor clinical course closely Time with Patient: Less than 30
--- NOTE | 2021-10-11 15:29 | P.PN ---
Subjective Progress Note Date: 10/11/21 Principal diagnosis: Secondary peritonitis from perforated diverticulitis and covid 19 infection Patient is an 81-year-old female who presented to the hospital with abdominal pain. This patient noticed to have perforated sigmoid diverticulitis status post laparotomy, sigmoid colectomy and diverting colostomy. Also had positive COVID test. On today's evaluation, that is 10/11/2021, The patient remains to be afebrile, the patient is hemodynamically stable not requiring any pressor support, the patient FiO2 is down to 40 % no significant purulent secretion through the ET has been reported by nursing staff and no diarrhea reported by the nursing staff Objective - Vital Signs Vital signs: Vital Signs Temp 98.2 F 10/11/21 12:00 Pulse 102 H 10/11/21 13:00 Resp 31 H 10/11/21 13:00 BP 132/98 10/11/21 13:00 Pulse Ox 95 10/11/21 13:00 Intake & Output 10/10/21 10/11/21 10/11/21 18:59 06:59 18:59 Intake Total 1682 2013 1328 Output Total 1265 1660 575 Balance 417 353 753 Weight 73.2 kg 73.2 kg Intake: IV 749 1103 511 0.9 260 220 140 Albumin Human 25% 50 ml 50 50 50 In Empty Bag 1 bag @ 50 mls/hr IVPB BID [facility] Rx#: [id number] Anidulafungin 100 mg In 100 100 Sodium Chloride 0.9% 100 ml @ 84 mls/hr IVPB DAILY [facility] Rx#:[id number] Piperacillin-Tazobactam 3 100 100 100 .375 gm In Sodium Chloride 0.9% 100 ml @ 25 mls/hr IVPB Q12H [facility] Rx# :[id number] Potassium Chloride 10 meq 500 In Water For Injection 1 100ml.bag @ 100 mls/hr IVPB Q1HR [facility] Rx#: [id number] Pressure Bag 39 33 21 metroNIDAZOLE-NS PMX 500 200 200 100 mg In Saline 1 100ml.bag @ 100 mls/hr IVPB Q6H [facility] Rx#:[id number] Intake, IV Titration 50 Amount Albumin Human 25% 50 ml 50 In Empty Bag 1 bag @ 50 mls/hr IVPB BID [facility] Rx#: [id number] Tube Feeding 403 310 217 Other 480 600 600 Output: Urine 865 1160 475 Stool 400 500 100 Other: Voiding Method Indwelling Catheter Indwelling Catheter Indwelling Catheter ABP, PAP, CO, CI - Last Documented Arterial Blood Pressure 147/78 - Exam General description is an elderly female intubated on the vent. Respiratory system: Unlabored breathing, decreased intensity in breath sounds. No wheeze. Heart S1, S2. Regular rate and rhythm. Abdomen soft, no tenderness. Extremities no edema feet - Labs CBC & Chem 7: 10/11/21 04:00 10/11/21 10:38 Labs: Abnormal Lab Results - Last 24 Hours (Table) 10/10/21 10/10/21 10/10/21 Range/Units 17:20 18:00 23:52 WBC (3.8-10.6) k/uL RBC (3.80-5.40) m/uL Hgb (11.4-16.0) gm/dL Hct (34.0-46.0) % MCHC (31.0-37.0) g/dL RDW (11.5-15.5) % Neutrophils # (1.3-7.7) k/uL Lymphocytes # (1.0-4.8) k/uL ABG pH (7.35-7.45) ABG HCO3 (21-25) mmol/L ABG Total CO2 (19-24) mmol/L ABG O2 Saturation (94-97) % Sodium (137-145) mmol/L Potassium 3.1 L (3.5-5.1) mmol/L Chloride (98-107) mmol/L BUN (7-17) mg/dL Creatinine (0.52-1.04) mg/dL Glucose (74-99) mg/dL POC Glucose (mg/dL) 209 H 200 H (75-99) mg/dL Calcium (8.4-10.2) mg/dL Alkaline Phosphatase (38-126) U/L Total Protein (6.3-8.2) g/dL Albumin (3.5-5.0) g/dL 10/11/21 10/11/21 10/11/21 Range/Units 04:00 04:00 05:29 WBC 20.8 H (3.8-10.6) k/uL RBC 2.93 L (3.80-5.40) m/uL Hgb 8.5 L (11.4-16.0) gm/dL Hct 28.6 L (34.0-46.0) % MCHC 29.9 L (31.0-37.0) g/dL RDW 15.8 H (11.5-15.5) % Neutrophils # 19.0 H (1.3-7.7) k/uL Lymphocytes # 0.8 L (1.0-4.8) k/uL ABG pH (7.35-7.45) ABG HCO3 (21-25) mmol/L ABG Total CO2 (19-24) mmol/L ABG O2 Saturation (94-97) % Sodium 151 H (137-145) mmol/L Potassium 3.0 L (3.5-5.1) mmol/L Chloride 115 H (98-107) mmol/L BUN 98 H (7-17) mg/dL Creatinine 1.96 H (0.52-1.04) mg/dL Glucose 197 H (74-99) mg/dL POC Glucose (mg/dL) 186 H (75-99) mg/dL Calcium 7.2 L (8.4-10.2) mg/dL Alkaline Phosphatase 180 H (38-126) U/L Total Protein 3.4 L (6.3-8.2) g/dL Albumin 1.8 L (3.5-5.0) g/dL 10/11/21 10/11/21 10/11/21 Range/Units 05:40 10:38 11:17 WBC (3.8-10.6) k/uL RBC (3.80-5.40) m/uL Hgb (11.4-16.0) gm/dL Hct (34.0-46.0) % MCHC (31.0-37.0) g/dL RDW (11.5-15.5) % Neutrophils # (1.3-7.7) k/uL Lymphocytes # (1.0-4.8) k/uL ABG pH 7.50 H (7.35-7.45) ABG HCO3 27 H (21-25) mmol/L ABG Total CO2 28 H (19-24) mmol/L ABG O2 Saturation 97.4 H (94-97) % Sodium (137-145) mmol/L Potassium 2.9 L (3.5-5.1) mmol/L Chloride (98-107) mmol/L BUN (7-17) mg/dL Creatinine (0.52-1.04) mg/dL Glucose (74-99) mg/dL POC Glucose (mg/dL) 202 H (75-99) mg/dL Calcium (8.4-10.2) mg/dL Alkaline Phosphatase (38-126) U/L Total Protein (6.3-8.2) g/dL Albumin (3.5-5.0) g/dL Assessment and Plan (1) Peritonitis Current Visit: Yes Status: Acute Code(s): K65.9 - PERITONITIS, UNSPECIFIED SNOMED Code(s): 97849104 Plan: 1. Patient with acute respiratory failure, multifactorial in this patient who has perforated sigmoid diverticulitis status post diverting colostomy. The patient Is currently covered with Zosyn which will be continued, none. No need for Flagyl will be discontinued 2. Elevated white count more likely related to the steroids plus minus a co mponent of oropharyngeal candidiasis versus abdominal source , The patient white count is trending down with addition of Eraxis and is down to 20.8K today, patient to continue with Eraxis and will monitor clinical course closely
[2021-10-11] MEDS ORDERED: POTASSIUM BICARBONATE/CIT AC 20 MEQ TABLET.EFF PO ONE ×2 (17:00→18:00)
--- NOTE | 2021-10-11 17:18 | P.PN ---
Subjective Progress Note Date: 10/11/21 CHIEF COMPLAINT: Abdominal pain HISTORY OF PRESENT ILLNESS: Patient is postop day #10 exploratory laparotomy, sigmoid colectomy with colostomy and right oophorectomy for perforated sigmoid colon. Patient remains in the ICU and intubated. Patient remains unresponsive. No significant change. Her potassium is revealing replaced. EEG had shown moderate diffuse cerebral dysfunction. She is followed by neurology. Patient is tolerating her tube feeds. Ostomy is functioning. Afebrile. WBC 20.8 hemo globin 8.5 potassium 3.3 creatinine 1.96. CODE STATUS currently no code. Patient seen and examined with Dr. garcia PHYSICAL EXAM: VITAL SIGNS: Reviewed. GENERAL: Well-developed in no acute distress. HEENT: No sclera icterus. Extraocular movements grossly intact. Moist buccal mucosa. Head is atraumatic, normocephalic. ABDOMEN: Soft. Nondistended. Dressing clean dry and intact. Stool present in ostomy NEUROLOGIC: Intubated unresponsive ASSESSMENT: 1. Perforated sigmoid colon status post exploratory laparotomy, sigmoid colectomy with colostomy and right oophorectomy 2. Acute hypoxic respiratory failure currently intubated and on mechanical ventilation 3. Septic shock due to perforated sigmoid colon 4. History of A. fib and TIA 5. COVID-19 positive, incidental finding 6. History of kidney transplant. Nephrology following 7. Acute kidney injury on chronic kidney disease 8. Thrombocytopenia 9. Metabolic Encephalopathy PLAN: -Patient may eventually require tracheostomy placement if requiring prolonged intubation -Continue ICU management -Continue supportive care -Continue antibiotics -Receiving tube feedings through OG-tube for nutrition support -Overall prognosis is poor and guarded -DVT prophylaxis lovenox and GI prophylaxis Protonix Physician Tire Setter note has been reviewed by physician. Signing provider agrees with the documented findings, assessment, and plan of care. Objective - Vital Signs Vital signs: Vital Signs Temp 98.2 F 10/11/21 16:00 Pulse 99 10/11/21 16:00 Resp 31 H 10/11/21 16:00 BP 127/83 10/11/21 16:00 Pulse Ox 97 10/11/21 16:00 Intake & Output 10/10/21 10/11/21 10/11/21 18:59 06:59 18:59 Intake Total 1682 2013 1690 Output Total 1265 1660 925 Balance 417 353 765 Weight 73.2 kg 73.2 kg Intake: IV 749 1103 580 0.9 260 220 200 Albumin Human 25% 50 ml 50 50 50 In Empty Bag 1 bag @ 50 mls/hr IVPB BID [facility] Rx#: [id number] Anidulafungin 100 mg In 100 100 Sodium Chloride 0.9% 100 ml @ 84 mls/hr IVPB DAILY [facility] Rx#:[id number] Piperacillin-Tazobactam 3 100 100 100 .375 gm In Sodium Chloride 0.9% 100 ml @ 25 mls/hr IVPB Q12H [facility] Rx# :[id number] Potassium Chloride 10 meq 500 In Water For Injection 1 100ml.bag @ 100 mls/hr IVPB Q1HR [facility] Rx#: [id number] Pressure Bag 39 33 30 metroNIDAZOLE-NS PMX 500 200 200 100 mg In Saline 1 100ml.bag @ 100 mls/hr IVPB Q6H [facility] Rx#:[id number] Intake, IV Titration 50 Amount Albumin Human 25% 50 ml 50 In Empty Bag 1 bag @ 50 mls/hr IVPB BID [facility] Rx#: [id number] Tube Feeding 403 310 310 Other 480 600 800 Output: Urine 865 1160 825 Stool 400 500 100 Other: Voiding Method Indwelling Catheter Indwelling Catheter Indwelling Catheter ABP, PAP, CO, CI - Last Documented Arterial Blood Pressure 158/82 - Labs CBC & Chem 7: 10/11/21 04:00 10/11/21 15:40 Labs: Abnormal Lab Results - Last 24 Hours (Table) 10/10/21 10/10/21 10/10/21 Range/Units 17:20 18:00 23:52 WBC (3.8-10.6) k/uL RBC (3.80-5.40) m/uL Hgb (11.4-16.0) gm/dL Hct (34.0-46.0) % MCHC (31.0-37.0) g/dL RDW (11.5-15.5) % Neutrophils # (1.3-7.7) k/uL Lymphocytes # (1.0-4.8) k/uL ABG pH (7.35-7.45) ABG HCO3 (21-25) mmol/L ABG Total CO2 (19-24) mmol/L ABG O2 Saturation (94-97) % Sodium (137-145) mmol/L Potassium 3.1 L (3.5-5.1) mmol/L Chloride (98-107) mmol/L BUN (7-17) mg/dL Creatinine (0.52-1.04) mg/dL Glucose (74-99) mg/dL POC Glucose (mg/dL) 209 H 200 H (75-99) mg/dL Calcium (8.4-10.2) mg/dL Alkaline Phosphatase (38-126) U/L Total Protein (6.3-8.2) g/dL Albumin (3.5-5.0) g/dL 10/11/21 10/11/21 10/11/21 Range/Units 04:00 04:00 05:29 WBC 20.8 H (3.8-10.6) k/uL RBC 2.93 L (3.80-5.40) m/uL Hgb 8.5 L (11.4-16.0) gm/dL Hct 28.6 L (34.0-46.0) % MCHC 29.9 L (31.0-37.0) g/dL RDW 15.8 H (11.5-15.5) % Neutrophils # 19.0 H (1.3-7.7) k/uL Lymphocytes # 0.8 L (1.0-4.8) k/uL ABG pH (7.35-7.45) ABG HCO3 (21-25) mmol/L ABG Total CO2 (19-24) mmol/L ABG O2 Saturation (94-97) % Sodium 151 H (137-145) mmol/L Potassium 3.0 L (3.5-5.1) mmol/L Chloride 115 H (98-107) mmol/L BUN 98 H (7-17) mg/dL Creatinine 1.96 H (0.52-1.04) mg/dL Glucose 197 H (74-99) mg/dL POC Glucose (mg/dL) 186 H (75-99) mg/dL Calcium 7.2 L (8.4-10.2) mg/dL Alkaline Phosphatase 180 H (38-126) U/L Total Protein 3.4 L (6.3-8.2) g/dL Albumin 1.8 L (3.5-5.0) g/dL 10/11/21 10/11/21 10/11/21 Range/Units 05:40 10:38 11:17 WBC (3.8-10.6) k/uL RBC (3.80-5.40) m/uL Hgb (11.4-16.0) gm/dL Hct (34.0-46.0) % MCHC (31.0-37.0) g/dL RDW (11.5-15.5) % Neutrophils # (1.3-7.7) k/uL Lymphocytes # (1.0-4.8) k/uL ABG pH 7.50 H (7.35-7.45) ABG HCO3 27 H (21-25) mmol/L ABG Total CO2 28 H (19-24) mmol/L ABG O2 Saturation 97.4 H (94-97) % Sodium (137-145) mmol/L Potassium 2.9 L (3.5-5.1) mmol/L Chloride (98-107) mmol/L BUN (7-17) mg/dL Creatinine (0.52-1.04) mg/dL Glucose (74-99) mg/dL POC Glucose (mg/dL) 202 H (75-99) mg/dL Calcium (8.4-10.2) mg/dL Alkaline Phosphatase (38-126) U/L Total Protein (6.3-8.2) g/dL Albumin (3.5-5.0) g/dL 10/11/21 Range/Units 15:40 WBC (3.8-10.6) k/uL RBC (3.80-5.40) m/uL Hgb (11.4-16.0) gm/dL Hct (34.0-46.0) % MCHC (31.0-37.0) g/dL RDW (11.5-15.5) % Neutrophils # (1.3-7.7) k/uL Lymphocytes # (1.0-4.8) k/uL ABG pH (7.35-7.45) ABG HCO3 (21-25) mmol/L ABG Total CO2 (19-24) mmol/L ABG O2 Saturation (94-97) % Sodium (137-145) mmol/L Potassium 3.3 L (3.5-5.1) mmol/L Chloride (98-107) mmol/L BUN (7-17) mg/dL Creatinine (0.52-1.04) mg/dL Glucose (74-99) mg/dL POC Glucose (mg/dL) (75-99) mg/dL Calcium (8.4-10.2) mg/dL Alkaline Phosphatase (38-126) U/L Total Protein (6.3-8.2) g/dL Albumin (3.5-5.0) g/dL
[2021-10-11] MEDS: SODIUM CHLORIDE 0.9% 1,000 ML IV SCH (17:53)
[2021-10-11 18:35] LABS: Glucose,Whole Blood 202 mg/dL (75-99)
[2021-10-11] MEDS: METOPROLOL TARTRATE 50 MG TAB PO SCH (20:44)
[2021-10-11 20:47] LABS: Glucose,Whole Blood 208 mg/dL (75-99)
[2021-10-11] MEDS ORDERED: POTASSIUM BICARBONATE/CIT AC 20 MEQ TABLET.EFF NG-TUBE SCH (21:00)
[2021-10-11 23:44] LABS: Glucose,Whole Blood 191 mg/dL (75-99)
[2021-10-12] MEDS: HYDROmorphone 0.5 MG/0.5 ML SYRINGE IVP PRN (02:33)
[2021-10-12] MEDS: NOREPINEPHRINE 32 MG in SODIUM CHLORIDE 0.9% 218 ML IV SCH (03:55)
[2021-10-12 04:01] LABS: Basophils # (A) 0.1 k/uL (0-0.2); Basophils % (A) 0 %; Eosinophils % (A) 0 %; HCT 27.7 % (34.0-46.0); HGB 8.4 gm/dL (11.4-16.0); Hypochromasia Marked; Lymphocytes # (A) 0.4 k/uL (1.0-4.8); Lymphocytes % (A) 2 %; MCH 29.4 pg (25.0-35.0); MCHC 30.4 g/dL (31.0-37.0); MCV 96.7 fL (80.0-100.0); Mean Platelet Volume 13.1; Monocytes # (A) 0.6 k/uL (0-1.0); Monocytes % (A) 3 %; Neutrophils # (A) 17.4 k/uL (1.3-7.7); Neutrophils % (A) 93 %; Platelet Count 268 k/uL (150-450); RBC 2.86 m/uL (3.80-5.40); RDW 15.4 % (11.5-15.5); WBC 18.7 k/uL (3.8-10.6)
[2021-10-12 04:28] LABS: Albumin 2.1 g/dL (3.5-5.0); Calcium 7.7 mg/dL (8.4-10.2); Potassium 3.5 mmol/L (3.5-5.1); Total Bilirubin 1.4 mg/dL (0.2-1.3); Total Protein 3.7 g/dL (6.3-8.2)
[2021-10-12] MEDS: POTASSIUM BICARBONATE/CIT AC 20 MEQ TABLET.EFF NG-TUBE SCH ×2 (04:41→06:02)
[2021-10-12 05:50] LABS: ABG HCO3 31 mmol/L (21-25); ABG Oxygen Saturation 98.8 % (94-97); ABG PCO2 43 mmHg (35-45); ABG PH 7.47 (7.35-7.45); ABG PO2 104 mmHg (83-108); ABG TCO2 32 mmol/L (19-24); Allen Test Performed? Yes
[2021-10-12 05:58] LABS: Glucose,Whole Blood 187 mg/dL (75-99)
[2021-10-12] MEDS: INSULIN ASPART (NovoLOG) 100 UNIT/ML VIAL SQ SCH ×3 (06:02→18:45)
--- NOTE | 2021-10-12 07:06 | XR ---
EXAMINATION TYPE: XR chest 1V portable DATE OF EXAM: 10/12/2021 5:48 AM COMPARISON:Chest radiograph from one day prior. TECHNIQUE: Frontal view of the chest. CLINICAL INDICATION:Female, 81 years old with history of covid; FINDINGS: Lungs/Pleura: There is no evidence of focal consolidation, or pneumothorax. Blunting of the left cos tophrenic angle is similar and may represent pleural effusion. Pulmonary vascularity: Unremarkable. Heart/mediastinum: Cardiomediastinal silhouette is unremarkable. Musculoskeletal: No acute osseous pathology. Lines/Tubes: Endotracheal tube with distal tip xx cm above the tri Nasogastric tube with its distal tip and side-port projecting under the diaphragm. Right internal jugular central venous catheter with distal tip projecting over the right atrium. IMPRESSION: Stable exam not significantly different from one day prior. Support tubes and line in place.
[2021-10-12] MEDS: CHLORHEXIDINE GLUCONATE 15 ML CUP MUCOUS MEM SCH ×2 (09:53→20:23)
[2021-10-12] MEDS: PIPERACILLIN-TAZOBACTAM 3.375 GM in SODIUM CHLORIDE 0.9% 100 ML IVPB SCH ×2 (09:53→20:26)
[2021-10-12] MEDS: METOPROLOL TARTRATE 50 MG TAB PO SCH ×2 (09:54→20:24)
[2021-10-12] MEDS: PANTOPRAZOLE 40 MG/10 ML VIAL IV SCH (09:54)
[2021-10-12] MEDS: APIXABAN 2.5 MG TABLET PO SCH ×2 (09:54→20:23)
[2021-10-12] MEDS: CALCIUM CARBONATE 500 MG CHEWABLE PO SCH ×2 (09:54→20:23)
[2021-10-12] MEDS: HYDROCORTISONE SUCCINATE 100 MG/2 ML VIAL IV SCH ×2 (09:56→20:24)
[2021-10-12] MEDS: LACOSAMIDE IV 50 MG in SODIUM CHLORIDE 0.9% 50 ML IVPB SCH (10:19)
[2021-10-12] MEDS: ANIDULAFUNGIN 100 MG in SODIUM CHLORIDE 0.9% 100 ML IVPB SCH (10:20)
[2021-10-12] MEDS: cycloSPORINE 25 MG CAP PO SCH ×2 (10:21→20:24)
[2021-10-12 11:12] LABS: Magnesium 2.1 mg/dL (1.6-2.3); Potassium 3.4 mmol/L (3.5-5.1)
[2021-10-12 11:28] LABS: Glucose,Whole Blood 160 mg/dL (75-99)
[2021-10-12] MEDS: POTASSIUM CHLORIDE 20 MEQ in WATER FOR INJECTION 1 100ML.BAG IVPB SCH ×2 (11:48→13:16)
[2021-10-12] MEDS: DEXMEDETOMIDINE/0.9% NACL(PMX) 400 MCG in EMPTY BAG 1 BAG IV SCH (11:49)
--- NOTE | 2021-10-12 12:44 | P.PN ---
Progress Note - Text Progress Note Date: 10/12/21 Patient still remains encephalopathic. Her vitals are stable. Abdomen soft. Incision is clean. Stoma is functioning. Sepsis related to perforated diverticulitis. Patient will be scheduled for tracheostomy and PEG tube placement on Thursday.
--- NOTE | 2021-10-12 12:49 | P.PN ---
Subjective Progress Note Date: 10/12/21 The patient is seen at bedside and per patient's nurse, no improvement in patient's condition. She continues to be off sedation. Per nurse family had decided to make her DN&R but has not addressed regarding PEG and Trach. She continues to be on ventilator. Per the nurse she stated that the dye CT will start her on sedation since the patient is tachypneic. Objective - Vital Signs Vital signs: Vital Signs Temp 97.6 F 10/12/21 08:00 Pulse 101 H 10/12/21 10:00 Resp 29 H 10/12/21 10:00 BP 147/87 10/12/21 10:00 Pulse Ox 96 10/12/21 10:00 Intake & Output 10/11/21 10/12/21 10/12/21 18:59 06:59 18:59 Intake Total 2252 1894 323 Output Total 1275 1825 730 Balance 977 69 -407 Weight 73.2 kg 71.7 kg Intake: IV 649 353 192 0.9 260 220 80 Albumin Human 25% 50 ml 50 In Empty Bag 1 bag @ 50 mls/hr IVPB BID [facility] Rx#: [id number] Anidulafungin 100 mg In 100 Sodium Chloride 0.9% 100 ml @ 84 mls/hr IVPB DAILY [facility] Rx#:[id number] Piperacillin-Tazobactam 3 100 100 100 .375 gm In Sodium Chloride 0.9% 100 ml @ 25 mls/hr IVPB Q12H [facility] Rx# :[id number] Pressure Bag 39 33 12 metroNIDAZOLE-NS PMX 500 100 mg In Saline 1 100ml.bag @ 100 mls/hr IVPB Q6H [facility] Rx#:[id number] Intake, IV Titration 100 Amount Anidulafungin 100 mg In 100 Sodium Chloride 0.9% 100 ml @ 84 mls/hr IVPB DAILY [facility] Rx#:[id number] Tube Feeding 403 341 31 Other 1200 1200 Output: Urine 1175 1325 430 Stool 100 500 300 Other: Voiding Method Indwelling Catheter Indwelling Catheter ABP, PAP, CO, CI - Last Documented Arterial Blood Pressure 150/86 - Exam GENERAL: The patient is lying in bed and does not seem in acute distress. NEUROLOGICAL: Limited since because of her condition. Higher mental function: The patient is comatose. Patient is not verbally repsponsive or following commands. Cranial nerves: Minimally opens eyes to painful stimuli. Primary gaze is midline. The pupils are round, equal (3mm) and reactive to light. +ve corneal reflex bilaterally. No facial weakness. Patient would grimace face to painful stimuli. She would asbestos remover her left neck slightly to left with painful stimuli on left upper. Has positive gag reflex. Is breathing over the vent. Motor: The strength is unable to assess. But would grimace face to painful stimuli throughout. No movement to any extremities to painful stimuli. Normal bulk. No spontaneous movement noted. Cerebellum: Could not assess. Sensation: Light touch could not be assessed but grimaces to painful stimuli throughout.. Reflexes (right/left): 1+ throughout.. Plantars are mute bilaterally. WORK-UP: Coronavirus PCR is positive on 10/01/21 Potassium 0.2, sodium is 142, calcium 66.4, ionized calcium of 4.0 and was as low as 3.0, phosphorus is 5.4 and was as high as 8.6 during this hospital stay. AST of 35 and ALT of 11. Urine culture was negative for urinary tract infection. Blood cultures are no growth after 120 days Routine EEG on 10/07/2020 is abnormal. The background slowing is suggestive of moderate to severe encephalopathy. There is no focal slowing, epileptiform discharges or seizure on the EEG. 2.5hour EEG on 10/08/21: Is reported as abnormal 2.5 hour EEG. No clinical or electrographic seizures were reported. No epileptiform activity was present. This was predominantly a sleep EEG. During rare periods of relatively maximal arousal, diffuse theta range slowing was seen which was not epileptiform in nature. These findings indicate moderate diffuse cerebral dysfunction which may be in part due to medication effect. 2.5hour EEG on 10/09/2021: Is reported as abnormal EEG. The triphasic waves mentioned above are not epileptiform in nature. Triphasic waves can be seen in the setting of metabolic encephalopathy. The diffuse synchronous and asynchronous theta and delta range slowing, frontally predominant mentioned above is not epileptiform in nature. In combination, these findings indicate moderate diffuse cerebral dysfunction. No seizure were recorded. No epileptiform activity the was present. CT Brain w/o: Is reported as cerebral atrophy and chronic small vessel ischemia. No acute intracranial abnormality. - Labs CBC & Chem 7: 10/12/21 03:50 10/12/21 10:30 Labs: Abnormal Lab Results - Last 24 Hours (Table) 10/11/21 10/11/21 10/11/21 Range/Units 15:40 18:32 20:44 WBC (3.8-10.6) k/uL RBC (3.80-5.40) m/uL Hgb (11.4-16.0) gm/dL Hct (34.0-46.0) % MCHC (31.0-37.0) g/dL Neutrophils # (1.3-7.7) k/uL Lymphocytes # (1.0-4.8) k/uL ABG pH (7.35-7.45) ABG HCO3 (21-25) mmol/L ABG Total CO2 (19-24) mmol/L ABG O2 Saturation (94-97) % Sodium (137-145) mmol/L Potassium 3.3 L (3.5-5.1) mmol/L Chloride (98-107) mmol/L Carbon Dioxide (22-30) mmol/L BUN (7-17) mg/dL Creatinine (0.52-1.04) mg/dL Glucose (74-99) mg/dL POC Glucose (mg/dL) 202 H 208 H (75-99) mg/dL Calcium (8.4-10.2) mg/dL Total Bilirubin (0.2-1.3) mg/dL Alkaline Phosphatase (38-126) U/L Total Protein (6.3-8.2) g/dL Albumin (3.5-5.0) g/dL 10/11/21 10/12/21 10/12/21 Range/Units 23:42 03:50 03:50 WBC 18.7 H (3.8-10.6) k/uL RBC 2.86 L (3.80-5.40) m/uL Hgb 8.4 L (11.4-16.0) gm/dL Hct 27.7 L (34.0-46.0) % MCHC 30.4 L (31.0-37.0) g/dL Neutrophils # 17.4 H (1.3-7.7) k/uL Lymphocytes # 0.4 L (1.0-4.8) k/uL ABG pH (7.35-7.45) ABG HCO3 (21-25) mmol/L ABG Total CO2 (19-24) mmol/L ABG O2 Saturation (94-97) % Sodium 151 H (137-145) mmol/L Potassium (3.5-5.1) mmol/L Chloride 114 H (98-107) mmol/L Carbon Dioxide 32 H (22-30) mmol/L BUN 85 H (7-17) mg/dL Creatinine 1.72 H (0.52-1.04) mg/dL Glucose 194 H (74-99) mg/dL POC Glucose (mg/dL) 191 H (75-99) mg/dL Calcium 7.7 L (8.4-10.2) mg/dL Total Bilirubin 1.4 H (0.2-1.3) mg/dL Alkaline Phosphatase 172 H (38-126) U/L Total Protein 3.7 L (6.3-8.2) g/dL Albumin 2.1 L (3.5-5.0) g/dL 10/12/21 10/12/21 10/12/21 Range/Units 05:45 05:57 10:30 WBC (3.8-10.6) k/uL RBC (3.80-5.40) m/uL Hgb (11.4-16.0) gm/dL Hct (34.0-46.0) % MCHC (31.0-37.0) g/dL Neutrophils # (1.3-7.7) k/uL Lymphocytes # (1.0-4.8) k/uL ABG pH 7.47 H (7.35-7.45) ABG HCO3 31 H (21-25) mmol/L ABG Total CO2 32 H (19-24) mmol/L ABG O2 Saturation 98.8 H (94-97) % Sodium (137-145) mmol/L Potassium 3.4 L (3.5-5.1) mmol/L Chloride (98-107) mmol/L Carbon Dioxide (22-30) mmol/L BUN (7-17) mg/dL Creatinine (0.52-1.04) mg/dL Glucose (74-99) mg/dL POC Glucose (mg/dL) 187 H (75-99) mg/dL Calcium (8.4-10.2) mg/dL Total Bilirubin (0.2-1.3) mg/dL Alkaline Phosphatase (38-126) U/L Total Protein (6.3-8.2) g/dL Albumin (3.5-5.0) g/dL 10/12/21 Range/Units 11:26 WBC (3.8-10.6) k/uL RBC (3.80-5.40) m/uL Hgb (11.4-16.0) gm/dL Hct (34.0-46.0) % MCHC (31.0-37.0) g/dL Neutrophils # (1.3-7.7) k/uL Lymphocytes # (1.0-4.8) k/uL ABG pH (7.35-7.45) ABG HCO3 (21-25) mmol/L ABG Total CO2 (19-24) mmol/L ABG O2 Saturation (94-97) % Sodium (137-145) mmol/L Potassium (3.5-5.1) mmol/L Chloride (98-107) mmol/L Carbon Dioxide (22-30) mmol/L BUN (7-17) mg/dL Creatinine (0.52-1.04) mg/dL Glucose (74-99) mg/dL POC Glucose (mg/dL) 160 H (75-99) mg/dL Calcium (8.4-10.2) mg/dL Total Bilirubin (0.2-1.3) mg/dL Alkaline Phosphatase (38-126) U/L Total Protein (6.3-8.2) g/dL Albumin (3.5-5.0) g/dL Assessment and Plan Assessment: Altered mental status due to multi-factorial: Metabolic encephalopathy with acute kidney insufficiency, electrolyte abnormality and COVID-19 pneumonia. IV Precedex has been off since 10/09/21. Septic shock due to abdominal sepsis Acute COVID-19 pneumonia is possible Acute hypernatremia--most recent is 151 Acute pneumoperitoneum and abdominal sepsis with perforation of sigmoid requiring surgery, colostomy Acute hypoxia worsens her failure and is intubated on the ventilator Chronic kidney disease--- trending down Chronic atrial fibrillation and was on Eliquis at home History of kidney transplantation on immunosuppressant therapy (CellCept, prednisone and cyclosporine) History of breast cancer/lobular carcinoma in situ requiring surgery only Plan: * Routine EEG on 10/07/2020 is abnormal. The background slowing is suggestive of moderate to severe encephalopathy. There is no focal slowing, epileptiform discharges or seizure on the EEG. * 2.5hour EEG on 10/08/21: Is reported as abnormal 2.5 hour EEG. No clinical or electrographic seizures were reported. No epileptiform activity was present. This was predominantly a sleep EEG. During rare periods of relatively maximal arousal, diffuse theta range slowing was seen which was not epileptiform in nature. These findings indicate moderate diffuse cerebral dysfunction which may be in part due to medication effect. I personally felt ?frontal sharp and wave was noted over right>left. * Therefore, I started the patient on prophylactic Vimpat 50mg bid IV. * 2.5hour EEG on 10/09/2021: Is reported as abnormal EEG. The triphasic waves mentioned above are not epileptiform in nature. Triphasic waves can be seen in the setting of metabolic encephalopathy. The diffuse synchronous and asynchronous theta and delta range slowing, frontally predominant mentioned above is not epileptiform in nature. In combination, these findings indicate moderate diffuse cerebral dysfunction. No seizure were recorded. No epileptiform activity the was present. * CT head 10/07/2021: Is reported as cerebral atrophy and chronic small vessel ischemia. No acute intracranial abnormality. * Every 2 neurochecks * Nephrology is on board * Will defer the hypernatremia management to Nephrology and primary team. * Infection disease team is on board * Cardiology is on board. She is currently on Eliquis 2.5mg 1 tab bid. * We'll defer the rest of medical management to the primary team. * Condition: Is critical and appears poor. The plan is discussed with the nurse. I spoke with the patient's daughter (Milana) via phone multiple times regarding patient's condition and she stated she needs to talk to rest of family but for now she is DN&R. Esdras Swift M.D. Neuro-Hospitalist. Time with Patient: Less than 30
[2021-10-12] MEDS: DEXTROSE 5% IN WATER 1,000 ML IV SCH (13:16)
--- NOTE | 2021-10-12 13:41 | P.PN ---
Subjective Progress Note Date: 10/12/21 Principal diagnosis: Acute pneumoperitoneum secondary to acute sigmoid colon perforation status post colectomy and diverting colostomy postoperative day #11 10/05 2021, the patient is postop day #4. Remains on a mechanical ventilator. He remains sedated with propofol and the patient is currently on 15 mcg/kg per minute. She is adequately sedated for now. She remains on a mechanical ventilator on assist control mode at the rate of 26, tidal volume of 300, FiO2 of 40% with a PEEP of 5. The blood gas from today shows a father respiratory alkalosis and metabolic alkalosis. PH is at 7.54 with a pCO2 of 37 and pO2 of 80. Chest x-ray showing some atelectatic changes and small effusion the lung bases bilaterally. ET tube is in a good location. There is some mild increase in interstitial markings. Note that the patient is a case of Coumadin nightly related pneumonia also. Hemodynamically, the patient is doing better. She has been weaned off on norepinephrine which is currently running at 0.02 microvascular kilogram per minute and vasopressin remains on a physiologic dose. Her renal function continues to improve in the creatinine is down to 2.7. The patient was also having issues with hypocalcemia. She required calcium placement and her serum calcium total currently is up to 6.3. Ionized calcium is pending for now. Her serum albumin was down to 1.6. Her colostomy was functional and she was started on enteral feeding for nutritional support and she is currently on Nepro at the rate of 23 mL an hour. Another concern is her thrombocytopenia as the patient developed consumptive thrombocytopenia. She is currently on anticoagulation with Eliquis. No bleeding. I am concerned about the potential of bleeding this patient I'm recommending discontinuation of the Eliquis for now. We'll continue the combination of Zosyn and Flagyl as broad-spectrum antibiotic coverage. Cultures of been all negative. Bowel sounds are still hypoactive. The patient will need obviously a sedation holiday today and her candidacy for further weaning will be assessed. 10/06 2021, the patient is still on a mechanical ventilator. The patient is postop day #5. This morning, the patient is off sedation. Once off propofol, the patient's blood pressures improved and the patient is also off pressors. Meanwhile, she is still quite sedated. She is not showing adequate neurological recovery or alertness at this point in time and her mental status is being monit ored. She remains on a mechanical ventilator. She had an assist-control at the rate of 26, tidal volume of 300, FiO2 of 40% with a PEEP of 5. The blood gases from today shows a pH of 7.52 with a pCO2 of 41 and pO2 of 66. Chest x-ray shows small bilateral pleural effusions. ET tube is in a good location. There is improved aeration bilaterally. Meanwhile, as mentioned, the patient is off pressors. Platelet counts have improved up to 5072. The white cell count is at 28 with a hemoglobin 11.9.5. Renal function shows a creatinine of 2.6 which is stable. BUN is at 61. Sodium is at 138. The patient remains on examination Zosyn and Flagyl. IV fluids are running at the rate of 20 mL an hour. The patient is off pressors. The patient is on stress dose hydrocortisone regarding her chronic steroid use. In terms of feeding, the patient was started on Nepro which is running at the rate of 23 mL an hour. The patient is producing stool at this point in time. Her cardiac rhythm is still in atrial fibrillation. The rate is controlled. We have stopped anticoagulation due to concern of underlying thrombocytopenia. Her thrombocytopenia was essentially consumptive related to sepsis. Patient was reevaluated today on 10/07/2021, remains in the ICU, intubated and mechanically ventilated, patient is on assist control rate of 16, volume 300 FiO2 40% and PEEP of 5. ABG showed a pO2 of 56, pCO2 33, pH of 7.59. Patient is off sedation now for the last 2 days, and does not seem to be making any neurological improvement, she is hemodynamically stable, she is in atrial fibrillation with a rate of 1:15, she is on Lovenox, the dose was increased to 30 mg subcu twice a day. Patient seems to be hypercapnic, and instead of using propofol, I'm recommending Precedex, and will be titrated accordingly. I'm also recommending a brain CT today and a neurological consultation. Lovenox was increased to twice a day dosing mostly because of her ongoing atrial fibrillation. And she does have renal failure. Ventilator mcdowell, I recommended that we stay on the same vent settings, I did increase the flow to 60 L/m. See count is 26.2 hemoglobin is 9.4. Basic metabolic profile is normal however her BUN is 83 creatinine 2.16, patient is being followed by nephrology. Asked x-ray showed mostly bibasilar airspace disease, patient did test positive for COVID-19 infection however her chest x-ray is not basically typical of COVID-19 pneumonia, and the patient is not requiring significant FiO2 and significant PEEP at this point. Reevaluated today on 10/08/2021, remains in the ICU, intubated and mechanically ventilated. Patient is on assist control rate of 16, volume 300 FiO2 50% and PEEP of 5. ABG showed a pO2 of 77 pCO2 45 pH of 7.43. Patient is only on Precedex for sedation and to keep the patient synchronous with mechanical ventilation without affecting her mental status. She is requiring norepinephrine at 0.1 mcg/kg/m, and she is on antibiotics empirically. Patient is receiving Nepro at 31 mL per hour. Labs showed low potassium of 3.0, being corrected by protocol. Her renal profile is a bit worse with a BUN of 90 creatinine 2.63. LDH is 102 for C-reactive protein is 7.3. WBC count is elevated 30.7 hemoglobin is 8.9 and hematocrit 28.6. Patient is in atrial fibrillation with controlled rate, she is on Eliquis, antibiotics mcdowell she is on Zosyn and Flagyl for her abdominal sepsis. Neurologically, the patient remains unresponsive to any stimuli, she grimaces with deep painful stimuli, otherwise no responses are noted. Neurology has been consulted on this patient. Reevaluated today on 10/09/2021, remains in the ICU, intubated and mechanically ventilated, remains off sedation except Precedex. Patient remains unresponsive to any stimuli. Being followed by neurology, and apparently her family was updated by neurology on her neurological status. Patient is on assist control rate of 16, volume 300 FiO2 50% and PEEP of 5. ABG showed a pO2 of 87 pCO2 40 0 pH of 7.47. Patient is on Precedex which I plan to discontinue, she is on enteral feeding in the form of Nepro, she is at goal. Patient is in atrial fibrillation, but rate seems to be controlled, her rate is 103 today. She is hemodynamically stable. Patient continues to grimace only to deep painful stimuli otherwise no neurological responses, she is in the process of having EEG during my evaluation. Chest x-ray showed mostly COPD with stable bilateral infiltrates and pleural effusion. WBC count today is 28.5 hemoglobin is 9.6. Electrolytes showed slightly elevated sodium of 145 potassium 3.4 BUN is 100 creatinine 2.46. Reevaluated today on 10/10/2021, remains in the ICU, intubated and mechanically ventilated. Patient is presently on assist control rate of 16 tidal volume 300 FiO2 of 50% PEEP of 5. ABG showed a pO2 of 86 pCO2 of 39 pH of 7.47. Patient remains unresponsive to any stimuli, remains off sedation. She is receiving enteral feeding, and it is up to goal in the form of Nepro. Her WBC count is 23.2 hemoglobin is 9.1. Electrolytes are normal except for a sodium of 148, BUN is 105 creatinine 2.27, being followed by nephrology. Chest x-ray is showing mostly atelectasis, and possibly a small left pleural effusion. Underlying pneumonia is not entirely ruled out, possibly COVID-19 related.. Patient remains on her accessory is also on Zosyn. Reevaluated today on 10/11/2021, patient is now postoperative day #10. Remains in the ICU, not much of the changes noted in the last 24 hours, remains unresponsive to any stimuli except a grimacing to deep painful stimuli. Remains on assist control rate of 16 tidal volume 300 FiO2 45% PEEP of 5. Patient is on enteral feeding in the form of Nepro at 35 mL per hour. She is receiving free water flushes to correct her high sodium. Patient is not requiring any drips, she is hemodynamically stable. Remains on antibiotics empirically. Patient is being followed by infectious disease. Patient is also on Eraxis her hydrocortisone dose has been cut down to 50 mg every 8 hours, and I will cut it down today to every 12 hours. Patient is also on Flagyl. Overall the patient is basically about the same, and no significant neurological recovery has been noted in the last 10 days. EEG is suggestive of moderate severe encephalopathy. No epileptiform focus. Reevaluated today on 10/12/21, patient remains in the ICU intubated and mechanically ventilated, remains unresponsive to any stimuli. Patient is now postoperative day #11. Patient seems to be quitE tachypneic, and does not seem to be synchronous at times and the ventilator, as I recommended starting the patient on a low dose propofol. She needs a bit of sedation, although we have been holding the sedation now for over 5 days, and no mental change has been noted no neurological recovery has been noted. She is on assist control rate of 16 tidal volume of 300 FiO2 45% PEEP of 5. ABG showed a pO2 of 104 pCO2 43 pH of 7.47. Her electrolytes are worse, she is having a high sodium of 151, hence I'm changing her main IV fluid to D5W, and she'll remain on free water flushes via orogastric tube. BUN is elevated at 89 and creatinine 1.72. Being followed closely by nephrology. Patient is on D5W and she is on free water flushes. Today I'm restarting her propofol. WBC count is 18.7, patient remains on antibiotics. Blood cultures and urine cultures have been negative chest x-ray continues to show left basilar atelectasis/consolidation. And possibly a small effusion. Objective - Vital Signs Vital signs: Vital Signs Temp 97.6 F 10/12/21 08:00 Pulse 101 H 10/12/21 10:00 Resp 29 H 10/12/21 10:00 BP 147/87 10/12/21 10:00 Pulse Ox 96 10/12/21 10:00 Intake & Output 10/11/21 10/12/21 10/12/21 18:59 06:59 18:59 Intake Total 2252 1894 323 Output Total 1275 1825 730 Balance 977 69 -407 Weight 73.2 kg 71.7 kg Intake: IV 649 353 192 0.9 260 220 80 Albumin Human 25% 50 ml 50 In Empty Bag 1 bag @ 50 mls/hr IVPB BID [facility] Rx#: [id number] Anidulafungin 100 mg In 100 Sodium Chloride 0.9% 100 ml @ 84 mls/hr IVPB DAILY [facility] Rx#:[id number] Piperacillin-Tazobactam 3 100 100 100 .375 gm In Sodium Chloride 0.9% 100 ml @ 25 mls/hr IVPB Q12H [facility] Rx# :[id number] Pressure Bag 39 33 12 metroNIDAZOLE-NS PMX 500 100 mg In Saline 1 100ml.bag @ 100 mls/hr IVPB Q6H [facility] Rx#:[id number] Intake, IV Titration 100 Amount Anidulafungin 100 mg In 100 Sodium Chloride 0.9% 100 ml @ 84 mls/hr IVPB DAILY [facility] Rx#:[id number] Tube Feeding 403 341 31 Other 1200 1200 Output: Urine 1175 1325 430 Stool 100 500 300 Other: Voiding Method Indwelling Catheter Indwelling Catheter ABP, PAP, CO, CI - Last Documented Arterial Blood Pressure 150/86 - Exam Gen: This is an 81-year-old female, intubated and mechanically ventilated. Unresponsive to any stimuli, including painful stimuli. Head: Atraumatic, normocephalic. HEENT: PERRLA, EOMI, nonicteric, no neck masses, no JVD. Endotracheal tube is intact. Orogastric tube is intact. NECK: Supple. No JVD. No lymphadenopathy. No thyromegaly. Cardiac: Irregular irregular rhythm, no S3 gallop. 2/6 systolic murmur throughout the precordium. LUNGS: Symmetrical chest expansion crackles at the bases. Abdomen: Colostomy bag is intact, seems to be functional EXTREMITIES: 1+ bipedal edema, good pulses bilaterally. NEUROLOGICAL: Patient is intubated, not responsive to any stimuli. In spite of holding sedation now for almost 5 days. Psychiatric: Cannot assess. Grimaces only to deep painful stimuli. - Labs CBC & Chem 7: 10/12/21 03:50 10/12/21 10:30 Labs: Abnormal Lab Results - Last 24 Hours (Table) 10/11/21 10/11/21 10/11/21 Range/Units 15:40 18:32 20:44 WBC (3.8-10.6) k/uL RBC (3.80-5.40) m/uL Hgb (11.4-16.0) gm/dL Hct (34.0-46.0) % MCHC (31.0-37.0) g/dL Neutrophils # (1.3-7.7) k/uL Lymphocytes # (1.0-4.8) k/uL ABG pH (7.35-7.45) ABG HCO3 (21-25) mmol/L ABG Total CO2 (19-24) mmol/L ABG O2 Saturation (94-97) % Sodium (137-145) mmol/L Potassium 3.3 L (3.5-5.1) mmol/L Chloride (98-107) mmol/L Carbon Dioxide (22-30) mmol/L BUN (7-17) mg/dL Creatinine (0.52-1.04) mg/dL Glucose (74-99) mg/dL POC Glucose (mg/dL) 202 H 208 H (75-99) mg/dL Calcium (8.4-10.2) mg/dL Total Bilirubin (0.2-1.3) mg/dL Alkaline Phosphatase (38-126) U/L Total Protein (6.3-8.2) g/dL Albumin (3.5-5.0) g/dL 10/11/21 10/12/21 10/12/21 Range/Units 23:42 03:50 03:50 WBC 18.7 H (3.8-10.6) k/uL RBC 2.86 L (3.80-5.40) m/uL Hgb 8.4 L (11.4-16.0) gm/dL Hct 27.7 L (34.0-46.0) % MCHC 30.4 L (31.0-37.0) g/dL Neutrophils # 17.4 H (1.3-7.7) k/uL Lymphocytes # 0.4 L (1.0-4.8) k/uL ABG pH (7.35-7.45) ABG HCO3 (21-25) mmol/L ABG Total CO2 (19-24) mmol/L ABG O2 Saturation (94-97) % Sodium 151 H (137-145) mmol/L Potassium (3.5-5.1) mmol/L Chloride 114 H (98-107) mmol/L Carbon Dioxide 32 H (22-30) mmol/L BUN 85 H (7-17) mg/dL Creatinine 1.72 H (0.52-1.04) mg/dL Glucose 194 H (74-99) mg/dL POC Glucose (mg/dL) 191 H (75-99) mg/dL Calcium 7.7 L (8.4-10.2) mg/dL Total Bilirubin 1.4 H (0.2-1.3) mg/dL Alkaline Phosphatase 172 H (38-126) U/L Total Protein 3.7 L (6.3-8.2) g/dL Albumin 2.1 L (3.5-5.0) g/dL 10/12/21 10/12/21 10/12/21 Range/Units 05:45 05:57 10:30 WBC (3.8-10.6) k/uL RBC (3.80-5.40) m/uL Hgb (11.4-16.0) gm/dL Hct (34.0-46.0) % MCHC (31.0-37.0) g/dL Neutrophils # (1.3-7.7) k/uL Lymphocytes # (1.0-4.8) k/uL ABG pH 7.47 H (7.35-7.45) ABG HCO3 31 H (21-25) mmol/L ABG Total CO2 32 H (19-24) mmol/L ABG O2 Saturation 98.8 H (94-97) % Sodium (137-145) mmol/L Potassium 3.4 L (3.5-5.1) mmol/L Chloride (98-107) mmol/L Carbon Dioxide (22-30) mmol/L BUN (7-17) mg/dL Creatinine (0.52-1.04) mg/dL Glucose (74-99) mg/dL POC Glucose (mg/dL) 187 H (75-99) mg/dL Calcium (8.4-10.2) mg/dL Total Bilirubin (0.2-1.3) mg/dL Alkaline Phosphatase (38-126) U/L Total Protein (6.3-8.2) g/dL Albumin (3.5-5.0) g/dL 10/12/21 Range/Units 11:26 WBC (3.8-10.6) k/uL RBC (3.80-5.40) m/uL Hgb (11.4-16.0) gm/dL Hct (34.0-46.0) % MCHC (31.0-37.0) g/dL Neutrophils # (1.3-7.7) k/uL Lymphocytes # (1.0-4.8) k/uL ABG pH (7.35-7.45) ABG HCO3 (21-25) mmol/L ABG Total CO2 (19-24) mmol/L ABG O2 Saturation (94-97) % Sodium (137-145) mmol/L Potassium (3.5-5.1) mmol/L Chloride (98-107) mmol/L Carbon Dioxide (22-30) mmol/L BUN (7-17) mg/dL Creatinine (0.52-1.04) mg/dL Glucose (74-99) mg/dL POC Glucose (mg/dL) 160 H (75-99) mg/dL Calcium (8.4-10.2) mg/dL Total Bilirubin (0.2-1.3) mg/dL Alkaline Phosphatase (38-126) U/L Total Protein (6.3-8.2) g/dL Albumin (3.5-5.0) g/dL Assessment and Plan Assessment: Impression: Acute hypoxic respiratory failure, multifactorial Acute pneumoperitoneum and abdominal sepsis with perforation of sigmoid. Requiring surgery, colostomy, postoperative day #11 Septic shock due to abdominal sepsis Acute COVID-19 pneumonia is possible. History of kidney transplantation, on immunosuppressive therapy, patient is normally on CellCept prednisone and cyclosporine Chronic kidney disease stage III Chronic atrial fibrillation, on anticoagulation therapy COVID-19 infection possible pneumonia, vaccination status is unknown Osteoporosis History of breast cancer/lobular carcinoma in situ requiring surgery only Thrombocytopenia secondary to sepsis. acute metabolic encephalopathy and change in mental status. CT brain and EEG were noted. Recommendation: Restart sedation, patient will be restarted on propofol today. She seems to be quite tachypneic and not synchronous with the ventilator. Continue ventilatory supporT. Continue antibiotics, and antifungal therapy, patient is on Eraxis, Zosyn, and Flagyl. Continue hydrocortisone at 50 mg twice a day, patient is chronically on steroids. Continue Eliquis. Continue to monitor daily electrolytes and labs Continue antibiotics. Continue patient off immunosuppression Continue vitamin D Continue GI prophylaxis/Protonix Continue to hold sedatives. Patient is critically ill, critical care time is over 30 minutes. Time with Patient: Greater than 30
--- NOTE | 2021-10-12 13:49 | P.PN ---
Subjective Progress Note Date: 10/12/21 Follow-up for acute kidney injury. Still on ventilator. Not waking up Objective - Vital Signs Vital signs: Vital Signs Temp 97.6 F 10/12/21 08:00 Pulse 101 H 10/12/21 10:00 Resp 29 H 10/12/21 10:00 BP 147/87 10/12/21 10:00 Pulse Ox 96 10/12/21 10:00 Intake & Output 10/11/21 10/12/21 10/12/21 18:59 06:59 18:59 Intake Total 2252 1894 323 Output Total 1275 1825 730 Balance 977 69 -407 Weight 73.2 kg 71.7 kg Intake: IV 649 353 192 0.9 260 220 80 Albumin Human 25% 50 ml 50 In Empty Bag 1 bag @ 50 mls/hr IVPB BID [facility] Rx#: [id number] Anidulafungin 100 mg In 100 Sodium Chloride 0.9% 100 ml @ 84 mls/hr IVPB DAILY [facility] Rx#:[id number] Piperacillin-Tazobactam 3 100 100 100 .375 gm In Sodium Chloride 0.9% 100 ml @ 25 mls/hr IVPB Q12H [facility] Rx# :[id number] Pressure Bag 39 33 12 metroNIDAZOLE-NS PMX 500 100 mg In Saline 1 100ml.bag @ 100 mls/hr IVPB Q6H [facility] Rx#:[id number] Intake, IV Titration 100 Amount Anidulafungin 100 mg In 100 Sodium Chloride 0.9% 100 ml @ 84 mls/hr IVPB DAILY [facility] Rx#:[id number] Tube Feeding 403 341 31 Other 1200 1200 Output: Urine 1175 1325 430 Stool 100 500 300 Other: Voiding Method Indwelling Catheter Indwelling Catheter ABP, PAP, CO, CI - Last Documented Arterial Blood Pressure 150/86 - Exam COVID-19 isolation. Refer to primary team exam - Labs CBC & Chem 7: 10/12/21 03:50 10/12/21 10:30 Labs: Abnormal Lab Results - Last 24 Hours (Table) 10/11/21 10/11/21 10/11/21 Range/Units 15:40 18:32 20:44 WBC (3.8-10.6) k/uL RBC (3.80-5.40) m/uL Hgb (11.4-16.0) gm/dL Hct (34.0-46.0) % MCHC (31.0-37.0) g/dL Neutrophils # (1.3-7.7) k/uL Lymphocytes # (1.0-4.8) k/uL ABG pH (7.35-7.45) ABG HCO3 (21-25) mmol/L ABG Total CO2 (19-24) mmol/L ABG O2 Saturation (94-97) % Sodium (137-145) mmol/L Potassium 3.3 L (3.5-5.1) mmol/L Chloride (98-107) mmol/L Carbon Dioxide (22-30) mmol/L BUN (7-17) mg/dL Creatinine (0.52-1.04) mg/dL Glucose (74-99) mg/dL POC Glucose (mg/dL) 202 H 208 H (75-99) mg/dL Calcium (8.4-10.2) mg/dL Total Bilirubin (0.2-1.3) mg/dL Alkaline Phosphatase (38-126) U/L Total Protein (6.3-8.2) g/dL Albumin (3.5-5.0) g/dL 10/11/21 10/12/21 10/12/21 Range/Units 23:42 03:50 03:50 WBC 18.7 H (3.8-10.6) k/uL RBC 2.86 L (3.80-5.40) m/uL Hgb 8.4 L (11.4-16.0) gm/dL Hct 27.7 L (34.0-46.0) % MCHC 30.4 L (31.0-37.0) g/dL Neutrophils # 17.4 H (1.3-7.7) k/uL Lymphocytes # 0.4 L (1.0-4.8) k/uL ABG pH (7.35-7.45) ABG HCO3 (21-25) mmol/L ABG Total CO2 (19-24) mmol/L ABG O2 Saturation (94-97) % Sodium 151 H (137-145) mmol/L Potassium (3.5-5.1) mmol/L Chloride 114 H (98-107) mmol/L Carbon Dioxide 32 H (22-30) mmol/L BUN 85 H (7-17) mg/dL Creatinine 1.72 H (0.52-1.04) mg/dL Glucose 194 H (74-99) mg/dL POC Glucose (mg/dL) 191 H (75-99) mg/dL Calcium 7.7 L (8.4-10.2) mg/dL Total Bilirubin 1.4 H (0.2-1.3) mg/dL Alkaline Phosphatase 172 H (38-126) U/L Total Protein 3.7 L (6.3-8.2) g/dL Albumin 2.1 L (3.5-5.0) g/dL 10/12/21 10/12/21 10/12/21 Range/Units 05:45 05:57 10:30 WBC (3.8-10.6) k/uL RBC (3.80-5.40) m/uL Hgb (11.4-16.0) gm/dL Hct (34.0-46.0) % MCHC (31.0-37.0) g/dL Neutrophils # (1.3-7.7) k/uL Lymphocytes # (1.0-4.8) k/uL ABG pH 7.47 H (7.35-7.45) ABG HCO3 31 H (21-25) mmol/L ABG Total CO2 32 H (19-24) mmol/L ABG O2 Saturation 98.8 H (94-97) % Sodium (137-145) mmol/L Potassium 3.4 L (3.5-5.1) mmol/L Chloride (98-107) mmol/L Carbon Dioxide (22-30) mmol/L BUN (7-17) mg/dL Creatinine (0.52-1.04) mg/dL Glucose (74-99) mg/dL POC Glucose (mg/dL) 187 H (75-99) mg/dL Calcium (8.4-10.2) mg/dL Total Bilirubin (0.2-1.3) mg/dL Alkaline Phosphatase (38-126) U/L Total Protein (6.3-8.2) g/dL Albumin (3.5-5.0) g/dL 10/12/21 Range/Units 11:26 WBC (3.8-10.6) k/uL RBC (3.80-5.40) m/uL Hgb (11.4-16.0) gm/dL Hct (34.0-46.0) % MCHC (31.0-37.0) g/dL Neutrophils # (1.3-7.7) k/uL Lymphocytes # (1.0-4.8) k/uL ABG pH (7.35-7.45) ABG HCO3 (21-25) mmol/L ABG Total CO2 (19-24) mmol/L ABG O2 Saturation (94-97) % Sodium (137-145) mmol/L Potassium (3.5-5.1) mmol/L Chloride (98-107) mmol/L Carbon Dioxide (22-30) mmol/L BUN (7-17) mg/dL Creatinine (0.52-1.04) mg/dL Glucose (74-99) mg/dL POC Glucose (mg/dL) 160 H (75-99) mg/dL Calcium (8.4-10.2) mg/dL Total Bilirubin (0.2-1.3) mg/dL Alkaline Phosphatase (38-126) U/L Total Protein (6.3-8.2) g/dL Albumin (3.5-5.0) g/dL Assessment and Plan Assessment: #1 acute allograft dysfunction secondary to hemodynamic ATN. -Is line creatinine 1.0 MG per DL. 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 #3 metabolic acidosis secondary to lactic acidosis improved. #4 hyponatremia secondary to decreased intake #5 pneumoperitoneum status post exploratory laparotomy #7 Covid 19 infection Plan: #1 on tube feeds. Continue with free water 400 ML's every 4 hours. #2 If hyponatremia persists tomorrow and D5 water at 50 mL an hour. #3 new with immunosuppression on IV hydrocortisone and cyclosporine. Renal function stable and improving. Replace KCl #4 avoid nephrotoxic agents and hypotensive episodes. #5 ICU care
--- NOTE | 2021-10-12 14:51 | PN ---
PROGRESS NOTE FOLLOW-UP NOTE: Holly is an 81-year-old lady who is intubated on vent in the ICU with COVID pneumonia and perforated bowel. She remains in atrial fibrillation with somewhat of a poorly controlled ventricular rate, and that is the reason we are following her. On exam, heart rate is 100 beats per minute. Blood pressure is 122/85. Rest of the exam has not been done. Labs show that the hemoglobin is 8.4, platelet count is 268, BUN is 85, creatinine is 1.7. ASSESSMENT: Persistent atrial fibrillation with poorly controlled ventricular rate. Patient is currently on metoprolol 50 b.i.d. She is on Eliquis. Family is making a decision regarding trach and PEG. I am going to hold the Eliquis at this time and start her on intravenous heparin. MMODL / IJN: [id number] /
--- NOTE | 2021-10-12 16:34 | P.PN ---
Subjective Progress Note Date: 10/12/21 HISTORY OF PRESENT ILLNESS This is an 81-year-old pleasant female patient of Dr. Henao, with known history of hypertension, CK D stage III, paroxysmal atrial fibrillation admitted through the emergency room secondary to abdominal pain and found to have pneumoperitoneum. She has significant discomfort, accompanied by nausea, vomiting, no fever. She presented to emergency room with normal findings, in the CAT scan showing moderate pneumoperitoneum, with small bowel thickening, and mild dilatation saray a of the mesenteric considered for mesenteric ischemia there is a left-sided pelvic cystic mass. Chest x-ray shows atelectasis, She is hypotensive, when seen, lactic acid level is high at 12, she was having difficulty of breathing with tachypnea, hence she was preemptively intubated in the emergency room,. She was placed on assist-control, rate of 26, FiO2 40%, PEEP of 5 at the volume of 300. She was sent ICU for stabilization requiring norepinephrine infusion at 0.5 mcg/kg/m for hypotension and septic shock, she received 3.5 L of normal saline for which she is now undergoing exploratory laparotomy. Consult was made with Dr. Price surgeon, and Dr. Nino, critical care ICU physician incidentally, she was tested confirmed Covid positive, on October 0110/02: Patient is seen today in the intensive care unit, remains intubated and on mechanical ventilation with tidal volume 300, FiO2 40 and PEEP of 5. Patient is currently on propofol, bicarb drip, amiodarone is being started for A. fib. Patient is on antibiotics the form of Zosyn and Flagyl. Repeat chest x-ray reveals basilar atelectasis, correlate to exclude pneumonia, possible effusion. Patient is followed by infectious disease, cardiology, clearance center manager, nephrology, general surgery. Repeat blood work today reveals WBC 24.6, hemoglobin 12.1, platelet count 123. Sodium 136, potassium 4.5, chloride 109, CO2 11, BUN 38 creatinine 3.04. Calcium 5.9. AST 109. Patient remains in isolation for Covid 19. 10/03: Remains intubated on mechanical ventilation with tidal volume 300, FiO2 40, PEEP of 5. She has had very minimal amount output on ostomy. She has been on high-dose levo fed started on vasopressin as well and heparin drip is off due to elevated PTT. She has no output from her OG. Urine output has improved. 10/04: She remains intubated and on mechanical ventilation with tidal volume 300, FiO2 40 and PEEP of 5. Patient started having output from ostomy last evening, liquid brown approximate 950 ML's. Calcium is being replaced. She is still on low-dose norepinephrine and vasopressin as well as IV fluids. Anticipate she will start oral medications and feedings today. Chest x-ray reveals stable bilateral infiltrate and pleural effusion. 10/05 patient remains intubated, PEEP of 5, O2 40% Dilaudid, pressures are little bit on the lower side, still with norepinephrine titrated with bp, NG feedings at 23 mL an hour, output noted in colostomy, no plans for vent weaning at this time in output is adequate patient is on Cortef 100 mg every 8 hours, was on oral prednisone chronically prior to admission. Ahlquist is still on hold, on IV Zosyn and Flagyl 10/06 and 20 rate in the 110s, blood pressure 125/92, remains to be intubated, assist control 16, with FiO2 40%, PEEP of 5. Slightly labored breathing colostomy, without no blood, NG feedings. On Zosyn and Flagyl multiple specialists following, patient remains in ICU 10/07: Patient remains intubated and on mechanical ventilation with tidal volume 300, FiO2 50 and PEEP of 5. Patient remains unresponsive. She is off vasopressors. She is on tube feedings. Urine output has been 30-40 mL per hour. Cardiology is on consult for atrial fibrillation with RVR and started Lopressor 25 mg twice daily. Chest x-ray reveals correlate for congestive heart failure with basilar effusions and associated atelectasis versus edema, pneumonia not excluded. 10/08: Patient remains in the intensive care unit. She has been off propofol. She is on Precedex and remains intubated on mechanical ventilation with tidal volume 300, FiO2 50, PEEP of 5. Patient's been cleared start eliquis tomorrow by Dr. Price. She is on levo fed which is being weaned down. She has had output from her ostomy. EEG is abnormal with background slowing suggestive of moderate to severe encephalopathy. 10/09: Patient remains in the intensive care unit intubated and on mechanical ventilation with tidal volume 300, FiO2 50, PEEP of 5. Patient is back on norep inephrine this morning with significant increase in blood pressure, now norepinephrine is off. Precedex has been weaned. Patient has not showed any purposeful movements. Patient is afebrile, heart rate 92, blood pressure 122/73, respiratory rate 31, pulse ox 96%. WBC 28.5, hemoglobin 9.6. Potassium 3.4, chloride 108, BUN 100, creatinine 2.46. Blood sugars are between 185 and 202. Alkaline phosphatase 217. C-reactive protein 5.5. Patient remains in isolation due to Covid [address] Kahn has started the patient on Eraxis. 10/10: Patient remains intubated on mechanical ventilation with tidal volume 300, FiO2 50, PEEP of 5. She remains unresponsive to stimuli and off sedation. She is on tube feedings at goal. Repeat blood work reveals WBC 23.2, hemoglobin 9.1. Sodium 148, BUN 105, creatinine 2.27. Patient is followed by clearance center manager, [employer] forces communications sergeant. Repeat chest x-ray reveals atelectasis and possibly small left pleural effusion. Underlying pneumonia not entirely ruled out, possibly Covid 19 related. She has been afebrile, heart rate 106, respiratory rate 31, blood pressure 97/63. Albumin has been ordered by Dr. Sampson. She is continued on Eraxis, Flagyl, Zosyn. Dr. Bucio updated patient's daughter over the phone. At this time, she does not feel she has enough information to make any decisions such as CODE STATUS. She will discuss with her 2 brothers. 10/11: Patient remains intubated and on mechanical ventilation with tidal volume 300, FiO2 45 and PEEP of 5. She received a dose of Lasix today and has good urine output. Scheduled for albumin infusion today. No significant change. She remains unresponsive and is off sedation. 09/11 patient continues remains intubated on mechanical ventilator with tidal volume 300 FiO2 45% and PEEP of 5. Patient started back on propofol since she was not synchronous with the ventilator. Patient was made no code yesterday by the family. Patient had. No improvement in mental status SEDATION. She does move her feet but does not withdraw from pain. Patient does have gag Reflux and pupils are equal and reactive. Patient continues remains tachycardic in atrial fibrillation and tachypnea 29. Leukocytosis is slightly improved to 18.7 hemoglobin 8.4, sodium is 151, potassium 3.4 chloride 114 BUN 85 creatinine is 1.7 to. Patient is continuous get the water flushes with D5W at 50 mL per hour. Nephrology recommendation appreciated. Review of SYSTEMS ROS unobtainable: due to endotracheal tube PHYSICAL EXAMINATION Gen: This is an 81-year-old female, resting on the ICU bed and appears to be comfortable. ET and orogastric tube in place. HEENT: Head is atraumatic, normocephalic. Pupils equal, round. Sclerae is anicteric. NECK: Supple. No JVD. No lymphadenopathy. No thyromegaly. LUNGS: Clear to auscultation. No wheezes or rhonchi. No intercostal retractions. HEART: Regular rate and rhythm. No murmur. ABDOMEN: Soft. Mild abdominal distention. No tenderness. No output in colo stomy bag. Reyes catheter is in place draining meir urine. EXTREMITIES: No pedal edema. No calf tenderness. NEUROLOGICAL: Patient is intubated. Patient is unresponsive to verbal and painful stimuli. No purposeful movement. ASSESSMENT AND PLAN 1. Acute pneumoperitoneum, with peritonitis considered for small bowel perforation, underlying ischemic bowel and abdominal sepsis 2. Acute hypoxic respiratory failure requiring mechanical intubation. General surgery, is status post exploratory laparotomy 10/01/2020. Continue Eraxis, Zosyn and Flagyl. Patient is on stress dose of hydrocortisone 50 mg every 8 hours. 3. Small bowel perforation suspected, with septic shock, explore lap on 08/10/2022, IV Zosyn 4. Septic shock, severe lactic acidosis, IV antibiotics, with fluids w pressors 5. History of kidney transplantation, on immunosuppressive agent, CellCept and prednisone and cyclosporine 6. Acute allograft dysfunction secondary to ATN secondary to hypotension and shock CKD, suspect stage III, relative consult appreciated. 7. chronic atrial fibrillation, with prior TIA. Patient is on liquids, Lopressor 25 mg 3 times daily daily, cardiology consult appreciated. 8. Covid 19 infection, unknown infection time and onset of signs and symptoms, vaccination status not Determined, consult Dr. Kahn 9. Metabolic encephalopathy. Patient is followed by neurology. No improvement of her condition off sedation. Patient is status post EEG 3 with no seizure activity. Patient was started on Vimpat by neurology. 10. Breast cancer, with lobular carcinoma in situ, had surgery for these activity unknown, 11. 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 Carmona. 12. Hypocalcemia. Continue to monitor and replace 13. Thrombocytopenia secondary to sepsis. Continue to monitor. 14. DVT prophylaxis GI prophylaxis 15 hypernatremia continue D5W at 50 mL per hour CODE STATUS, full until specified Prognosis guarded. Objective - Vital Signs Vital signs: Vital Signs Temp 97.6 F 10/12/21 08:00 Pulse 101 H 10/12/21 10:00 Resp 29 H 10/12/21 10:00 BP 147/87 10/12/21 10:00 Pulse Ox 96 10/12/21 10:00 Intake & Output 10/11/21 10/12/21 10/12/21 18:59 06:59 18:59 Intake Total 2252 1894 333.253 Output Total 1275 1825 730 Balance 977 69 -396.747 Weight 73.2 kg 71.7 kg Intake: IV 649 353 192 0.9 260 220 80 Albumin Human 25% 50 ml 50 In Empty Bag 1 bag @ 50 mls/hr IVPB BID [facility] Rx#: [id number] Anidulafungin 100 mg In 100 Sodium Chloride 0.9% 100 ml @ 84 mls/hr IVPB DAILY [facility] Rx#:[id number] Piperacillin-Tazobactam 3 100 100 100 .375 gm In Sodium Chloride 0.9% 100 ml @ 25 mls/hr IVPB Q12H [facility] Rx# :[id number] Pressure Bag 39 33 12 metroNIDAZOLE-NS PMX 500 100 mg In Saline 1 100ml.bag @ 100 mls/hr IVPB Q6H [facility] Rx#:[id number] Intake, IV Titration 110.253 Amount Anidulafungin 100 mg In 100 Sodium Chloride 0.9% 100 ml @ 84 mls/hr IVPB DAILY [facility] Rx#:[id number] propofoL 1,000 mg In 10.253 Empty Bag 1 bag @ Titrate IV .Q0M [facility] Rx#: [id number] Tube Feeding 403 341 31 Other 1200 1200 Output: Urine 1175 1325 430 Stool 100 500 300 Other: Voiding Method Indwelling Catheter Indwelling Catheter ABP, PAP, CO, CI - Last Documented Arterial Blood Pressure 150/86 - Labs CBC & Chem 7: 10/12/21 03:50 10/12/21 10:30 Labs: Abnormal Lab Results - Last 24 Hours (Table) 10/11/21 10/11/21 10/11/21 Range/Units 18:32 20:44 23:42 WBC (3.8-10.6) k/uL RBC (3.80-5.40) m/uL Hgb (11.4-16.0) gm/dL Hct (34.0-46.0) % MCHC (31.0-37.0) g/dL Neutrophils # (1.3-7.7) k/uL Lymphocytes # (1.0-4.8) k/uL ABG pH (7.35-7.45) ABG HCO3 (21-25) mmol/L ABG Total CO2 (19-24) mmol/L ABG O2 Saturation (94-97) % Sodium (137-145) mmol/L Potassium (3.5-5.1) mmol/L Chloride (98-107) mmol/L Carbon Dioxide (22-30) mmol/L BUN (7-17) mg/dL Creatinine (0.52-1.04) mg/dL Glucose (74-99) mg/dL POC Glucose (mg/dL) 202 H 208 H 191 H (75-99) mg/dL Calcium (8.4-10.2) mg/dL Total Bilirubin (0.2-1.3) mg/dL Alkaline Phosphatase (38-126) U/L Total Protein (6.3-8.2) g/dL Albumin (3.5-5.0) g/dL 10/12/21 10/12/21 10/12/21 Range/Units 03:50 03:50 05:45 WBC 18.7 H (3.8-10.6) k/uL RBC 2.86 L (3.80-5.40) m/uL Hgb 8.4 L (11.4-16.0) gm/dL Hct 27.7 L (34.0-46.0) % MCHC 30.4 L (31.0-37.0) g/dL Neutrophils # 17.4 H (1.3-7.7) k/uL Lymphocytes # 0.4 L (1.0-4.8) k/uL ABG pH 7.47 H (7.35-7.45) ABG HCO3 31 H (21-25) mmol/L ABG Total CO2 32 H (19-24) mmol/L ABG O2 Saturation 98.8 H (94-97) % Sodium 151 H (137-145) mmol/L Potassium (3.5-5.1) mmol/L Chloride 114 H (98-107) mmol/L Carbon Dioxide 32 H (22-30) mmol/L BUN 85 H (7-17) mg/dL Creatinine 1.72 H (0.52-1.04) mg/dL Glucose 194 H (74-99) mg/dL POC Glucose (mg/dL) (75-99) mg/dL Calcium 7.7 L (8.4-10.2) mg/dL Total Bilirubin 1.4 H (0.2-1.3) mg/dL Alkaline Phosphatase 172 H (38-126) U/L Total Protein 3.7 L (6.3-8.2) g/dL Albumin 2.1 L (3.5-5.0) g/dL 10/12/21 10/12/21 10/12/21 Range/Units 05:57 10:30 11:26 WBC (3.8-10.6) k/uL RBC (3.80-5.40) m/uL Hgb (11.4-16.0) gm/dL Hct (34.0-46.0) % MCHC (31.0-37.0) g/dL Neutrophils # (1.3-7.7) k/uL Lymphocytes # (1.0-4.8) k/uL ABG pH (7.35-7.45) ABG HCO3 (21-25) mmol/L ABG Total CO2 (19-24) mmol/L ABG O2 Saturation (94-97) % Sodium (137-145) mmol/L Potassium 3.4 L (3.5-5.1) mmol/L Chloride (98-107) mmol/L Carbon Dioxide (22-30) mmol/L BUN (7-17) mg/dL Creatinine (0.52-1.04) mg/dL Glucose (74-99) mg/dL POC Glucose (mg/dL) 187 H 160 H (75-99) mg/dL Calcium (8.4-10.2) mg/dL Total Bilirubin (0.2-1.3) mg/dL Alkaline Phosphatase (38-126) U/L Total Protein (6.3-8.2) g/dL Albumin (3.5-5.0) g/dL
[2021-10-12 18:08] LABS: Glucose,Whole Blood 179 mg/dL (75-99)
--- NOTE | 2021-10-12 21:50 | P.PN ---
Subjective Progress Note Date: 10/12/21 Principal diagnosis: Secondary peritonitis from perforated diverticulitis and covid 19 infection Patient is an 81-year-old female who presented to the hospital with abdominal pain. This patient noticed to have perforated sigmoid diverticulitis status post laparotomy, sigmoid colectomy and diverting colostomy. Also had positive COVID test. On today's evaluation, that is 10/12/2021, The patient continues to be afebrile, the patient is hemodynamically stable not requiring any pressor support, the patient FiO2 currently stable at 45 % no significant purulent secretion through the ET has been reported by nursing staff and no diarrhea reported by the nursing staff, patient is not waking up and mentation remains to be an issue per the nursing staff Objective - Vital Signs Vital signs: Vital Signs Temp 97.6 F 10/12/21 20:00 Pulse 106 H 10/12/21 21:00 Resp 39 H 10/12/21 21:00 BP 101/65 10/12/21 21:00 Pulse Ox 98 10/12/21 21:00 Intake & Output 10/12/21 10/12/21 10/13/21 06:59 18:59 06:59 Intake Total 1894 868.676 482 Output Total 1825 2342 400 Balance 69 -1473.324 82 Weight 71.7 kg Intake: IV 353 246 189 0.9 220 110 80 Piperacillin-Tazobactam 3 100 100 100 .375 gm In Sodium Chloride 0.9% 100 ml @ 25 mls/hr IVPB Q12H [facility] Rx# :[id number] Pressure Bag 33 36 9 Intake, IV Titration 267.676 Amount Anidulafungin 100 mg In 100 Sodium Chloride 0.9% 100 ml @ 84 mls/hr IVPB DAILY [facility] Rx#:[id number] Dextrose 5% in Water 1, 140 000 ml @ 20 mls/hr IV . Q24H [facility] Rx#:[id number] propofoL 1,000 mg In 27.676 Empty Bag 1 bag @ Titrate IV .Q0M [facility] Rx#: [id number] Tube Feeding 341 155 93 Other 1200 200 200 Output: Urine 1325 1742 400 Stool 500 600 Other: Voiding Method Indwelling Catheter Indwelling Catheter ABP, PAP, CO, CI - Last Documented Arterial Blood Pressure 121/71 - Exam General description is an elderly female intubated on the vent. Respiratory system: Unlabored breathing, decreased intensity in breath sounds. No wheeze. Heart S1, S2. Regular rate and rhythm. Abdomen soft, no tenderness. Midline incision remains to be clean akua are intact Extremities no edema feet - Labs CBC & Chem 7: 10/12/21 03:50 10/12/21 10:30 Labs: Abnormal Lab Results - Last 24 Hours (Table) 10/11/21 10/12/21 10/12/21 Range/Units 23:42 03:50 03:50 WBC 18.7 H (3.8-10.6) k/uL RBC 2.86 L (3.80-5.40) m/uL Hgb 8.4 L (11.4-16.0) gm/dL Hct 27.7 L (34.0-46.0) % MCHC 30.4 L (31.0-37.0) g/dL Neutrophils # 17.4 H (1.3-7.7) k/uL Lymphocytes # 0.4 L (1.0-4.8) k/uL ABG pH (7.35-7.45) ABG HCO3 (21-25) mmol/L ABG Total CO2 (19-24) mmol/L ABG O2 Saturation (94-97) % Sodium 151 H (137-145) mmol/L Potassium (3.5-5.1) mmol/L Chloride 114 H (98-107) mmol/L Carbon Dioxide 32 H (22-30) mmol/L BUN 85 H (7-17) mg/dL Creatinine 1.72 H (0.52-1.04) mg/dL Glucose 194 H (74-99) mg/dL POC Glucose (mg/dL) 191 H (75-99) mg/dL Calcium 7.7 L (8.4-10.2) mg/dL Total Bilirubin 1.4 H (0.2-1.3) mg/dL Alkaline Phosphatase 172 H (38-126) U/L Total Protein 3.7 L (6.3-8.2) g/dL Albumin 2.1 L (3.5-5.0) g/dL 10/12/21 10/12/21 10/12/21 Range/Units 05:45 05:57 10:30 WBC (3.8-10.6) k/uL RBC (3.80-5.40) m/uL Hgb (11.4-16.0) gm/dL Hct (34.0-46.0) % MCHC (31.0-37.0) g/dL Neutrophils # (1.3-7.7) k/uL Lymphocytes # (1.0-4.8) k/uL ABG pH 7.47 H (7.35-7.45) ABG HCO3 31 H (21-25) mmol/L ABG Total CO2 32 H (19-24) mmol/L ABG O2 Saturation 98.8 H (94-97) % Sodium (137-145) mmol/L Potassium 3.4 L (3.5-5.1) mmol/L Chloride (98-107) mmol/L Carbon Dioxide (22-30) mmol/L BUN (7-17) mg/dL Creatinine (0.52-1.04) mg/dL Glucose (74-99) mg/dL POC Glucose (mg/dL) 187 H (75-99) mg/dL Calcium (8.4-10.2) mg/dL Total Bilirubin (0.2-1.3) mg/dL Alkaline Phosphatase (38-126) U/L Total Protein (6.3-8.2) g/dL Albumin (3.5-5.0) g/dL 10/12/21 10/12/21 Range/Units 11:26 18:07 WBC (3.8-10.6) k/uL RBC (3.80-5.40) m/uL Hgb (11.4-16.0) gm/dL Hct (34.0-46.0) % MCHC (31.0-37.0) g/dL Neutrophils # (1.3-7.7) k/uL Lymphocytes # (1.0-4.8) k/uL ABG pH (7.35-7.45) ABG HCO3 (21-25) mmol/L ABG Total CO2 (19-24) mmol/L ABG O2 Saturation (94-97) % Sodium (137-145) mmol/L Potassium (3.5-5.1) mmol/L Chloride (98-107) mmol/L Carbon Dioxide (22-30) mmol/L BUN (7-17) mg/dL Creatinine (0.52-1.04) mg/dL Glucose (74-99) mg/dL POC Glucose (mg/dL) 160 H 179 H (75-99) mg/dL Calcium (8.4-10.2) mg/dL Total Bilirubin (0.2-1.3) mg/dL Alkaline Phosphatase (38-126) U/L Total Protein (6.3-8.2) g/dL Albumin (3.5-5.0) g/dL Assessment and Plan (1) Peritonitis Current Visit: Yes Status: Acute Code(s): K65.9 - PERITONITIS, UNSPECIFIED SNOMED Code(s): 88019447 Plan: 1. Patient with acute respiratory failure, multifactorial in this patient who has perforated sigmoid diverticulitis status post diverting colostomy. The patient Is currently covered with Zosyn which will be continued 2. Elevated white count more likely related to the steroids plus minus a component of oropharyngeal candidiasis versus abdominal source , The patient white count is trending down with addition of Eraxis and is down to 18,000 today, patient to continue with Eraxis and will monitor clinical course closely Time with Patient: Less than 30
[2021-10-13 00:14] LABS: Glucose,Whole Blood 171 mg/dL (75-99)
[2021-10-13] MEDS: INSULIN ASPART (NovoLOG) 100 UNIT/ML VIAL SQ SCH ×4 (00:18→17:53)
[2021-10-13] MEDS: LACOSAMIDE IV 50 MG in SODIUM CHLORIDE 0.9% 50 ML IVPB SCH ×3 (00:21→22:46)
[2021-10-13] MEDS: POTASSIUM BICARBONATE/CIT AC 20 MEQ TABLET.EFF NG-TUBE SCH ×4 (02:18→10:06)
[2021-10-13 05:12] LABS: Glucose,Whole Blood 184 mg/dL (75-99)
[2021-10-13 05:27] LABS: HCT 26.6 % (34.0-46.0); HGB 8.4 gm/dL (11.4-16.0); Hypochromasia Moderate; MCHC 31.5 g/dL (31.0-37.0); MCV 95.2 fL (80.0-100.0); Mean Platelet Volume 13.3; Platelet Count 234 k/uL (150-450); RBC 2.79 m/uL (3.80-5.40); RDW 15.6 % (11.5-15.5); WBC 15.8 k/uL (3.8-10.6)
[2021-10-13] MEDS: NOREPINEPHRINE 32 MG in SODIUM CHLORIDE 0.9% 218 ML IV SCH (05:33)
[2021-10-13 05:37] LABS: Calcium 7.7 mg/dL (8.4-10.2); Potassium 3.4 mmol/L (3.5-5.1)
[2021-10-13 05:44] LABS: ABG Base Excess 5.4 mmol/L; ABG HCO3 28 mmol/L (21-25); ABG Oxygen Saturation 97.7 % (94-97); ABG PCO2 32 mmHg (35-45); ABG PH 7.55 (7.35-7.45); ABG PO2 87 mmHg (83-108); ABG TCO2 29 mmol/L (19-24); Allen Test Performed? Yes
--- NOTE | 2021-10-13 07:13 | XR ---
EXAMINATION TYPE: XR chest 1V portable DATE OF EXAM: 10/13/2021 COMPARISON: Chest x-ray 10/12/2021 HISTORY: Covid, intubated TECHNIQUE: Single frontal view of the chest is obtained. FINDINGS: Endotracheal tube, NG tube, right subclavian central venous catheter are stable and overly ing appropriate positions. Bibasilar density is present, the hemidiaphragms are obscured, there is in creased retrocardiac density. Patient is rotated, there is no evident pneumothorax. Cardiac mediastin al silhouette is stable. Aorta is dense. IMPRESSION: Correlate for pneumonia, difficult to exclude effusion versus atelectasis
[2021-10-13] MEDS: ANIDULAFUNGIN 100 MG in SODIUM CHLORIDE 0.9% 100 ML IVPB SCH (08:19)
[2021-10-13] MEDS: PIPERACILLIN-TAZOBACTAM 3.375 GM in SODIUM CHLORIDE 0.9% 100 ML IVPB SCH ×2 (08:19→15:53)
[2021-10-13] MEDS: PANTOPRAZOLE 40 MG/10 ML VIAL IV SCH (08:20)
[2021-10-13] MEDS: CALCIUM CARBONATE 500 MG CHEWABLE PO SCH ×2 (08:20→22:40)
[2021-10-13] MEDS: HYDROCORTISONE SUCCINATE 100 MG/2 ML VIAL IV SCH ×2 (08:20→22:42)
[2021-10-13] MEDS: CHLORHEXIDINE GLUCONATE 15 ML CUP MUCOUS MEM SCH ×2 (08:20→22:40)
[2021-10-13] MEDS: METOPROLOL TARTRATE 50 MG TAB PO SCH ×2 (08:20→22:42)
[2021-10-13] MEDS: cycloSPORINE 25 MG CAP PO SCH ×2 (08:21→22:43)
[2021-10-13] MEDS: APIXABAN 2.5 MG TABLET PO SCH (08:21)
[2021-10-13 12:06] LABS: Glucose,Whole Blood 146 mg/dL (75-99)
--- NOTE | 2021-10-13 12:13 | P.PN ---
Progress Note - Text Progress Note Date: 10/13/21 The patient remains essentially unchanged. She still significantly encephalopathic. She will require long-term ventilation and enteral nutrition supportive care. Abdomen is soft. Colostomy dysfunction. Patient's plan for tracheostomy and PEG tube the morning.
--- NOTE | 2021-10-13 13:32 | P.PN ---
Subjective Progress Note Date: 10/13/21 Follow-up for acute kidney injury. Still on ventilator. Not waking up Objective - Vital Signs Vital signs: Vital Signs Temp 98.6 F 10/13/21 12:00 Pulse 94 10/13/21 12:00 Resp 30 H 10/13/21 12:00 BP 126/81 10/13/21 12:00 Pulse Ox 100 10/13/21 12:00 Intake & Output 10/12/21 10/13/21 10/13/21 18:59 06:59 18:59 Intake Total 628.199 7870.609 1004.606 Output Total 2342 1995 725 Balance -1473.324 9.609 279.606 Weight 72.8 kg Intake: IV 246 354 115 0.9 110 230 Dextrose 5% in Water 1, 100 000 ml @ 20 mls/hr IV . Q24H [facility] Rx#:[id number] Piperacillin-Tazobactam 3 100 100 .375 gm In Sodium Chloride 0.9% 100 ml @ 25 mls/hr IVPB Q12H [facility] Rx# :[id number] Pressure Bag 36 24 15 Intake, IV Titration 267.676 47.609 84.606 Amount Anidulafungin 100 mg In 100 Sodium Chloride 0.9% 100 ml @ 84 mls/hr IVPB DAILY [facility] Rx#:[id number] Dextrose 5% in Water 1, 140 000 ml @ 20 mls/hr IV . Q24H [facility] Rx#:[id number] propofoL 1,000 mg In 27.676 47.609 84.606 Empty Bag 1 bag @ Titrate IV .Q0M [facility] Rx#: [id number] Tube Feeding 155 403 155 Other 200 1200 650 Output: Urine 1742 1345 475 Stool 600 650 250 Other: Voiding Method Indwelling Catheter Indwelling Catheter Indwelling Catheter ABP, PAP, CO, CI - Last Documented Arterial Blood Pressure 136/73 - Exam COVID-19 isolation. Refer to primary team exam - Labs CBC & Chem 7: 10/13/21 05:00 10/13/21 05:00 Labs: Abnormal Lab Results - Last 24 Hours (Table) 10/12/21 10/13/21 10/13/21 Range/Units 18:07 00:13 00:30 WBC (3.8-10.6) k/uL RBC (3.80-5.40) m/uL Hgb (11.4-16.0) gm/dL Hct (34.0-46.0) % RDW (11.5-15.5) % ABG pH (7.35-7.45) ABG pCO2 (35-45) mmHg ABG HCO3 (21-25) mmol/L ABG Total CO2 (19-24) mmol/L ABG O2 Saturation (94-97) % Sodium (137-145) mmol/L Potassium 3.2 L (3.5-5.1) mmol/L Chloride (98-107) mmol/L BUN (7-17) mg/dL Creatinine (0.52-1.04) mg/dL Glucose (74-99) mg/dL POC Glucose (mg/dL) 179 H 171 H (75-99) mg/dL Calcium (8.4-10.2) mg/dL 10/13/21 10/13/21 10/13/21 Range/Units 05:00 05:00 05:10 WBC 15.8 H (3.8-10.6) k/uL RBC 2.79 L (3.80-5.40) m/uL Hgb 8.4 L (11.4-16.0) gm/dL Hct 26.6 L (34.0-46.0) % RDW 15.6 H (11.5-15.5) % ABG pH (7.35-7.45) ABG pCO2 (35-45) mmHg ABG HCO3 (21-25) mmol/L ABG Total CO2 (19-24) mmol/L ABG O2 Saturation (94-97) % Sodium 147 H (137-145) mmol/L Potassium 3.4 L (3.5-5.1) mmol/L Chloride 114 H (98-107) mmol/L BUN 72 H (7-17) mg/dL Creatinine 1.36 H (0.52-1.04) mg/dL Glucose 175 H (74-99) mg/dL POC Glucose (mg/dL) 184 H (75-99) mg/dL Calcium 7.7 L (8.4-10.2) mg/dL 10/13/21 10/13/21 Range/Units 05:32 12:05 WBC (3.8-10.6) k/uL RBC (3.80-5.40) m/uL Hgb (11.4-16.0) gm/dL Hct (34.0-46.0) % RDW (11.5-15.5) % ABG pH 7.55 H (7.35-7.45) ABG pCO2 32 L (35-45) mmHg ABG HCO3 28 H (21-25) mmol/L ABG Total CO2 29 H (19-24) mmol/L ABG O2 Saturation 97.7 H (94-97) % Sodium (137-145) mmol/L Potassium (3.5-5.1) mmol/L Chloride (98-107) mmol/L BUN (7-17) mg/dL Creatinine (0.52-1.04) mg/dL Glucose (74-99) mg/dL POC Glucose (mg/dL) 146 H (75-99) mg/dL Calcium (8.4-10.2) mg/dL Assessment and Plan Assessment: #1 acute allograft dysfunction secondary to hemodynamic ATN. -Based line creatinine 1.0 MG per DL. 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 #3 metabolic acidosis secondary to lactic acidosis improved. #4 hypernatremia secondary to decreased intake #5 pneumoperitoneum status post exploratory laparotomy #7 Covid 19 infection. Plan: #1 on tube feeds. Continue with free water 400 ML's every 4 hours. #2 with persistent hypernatremia and D5 water at 50 ML's an hour #3 new with immunosuppression on IV hydrocortisone and cyclosporine. Renal function stable and improving. Replace KCl #4 avoid nephrotoxic agents and hypotensive episodes. #5 ICU care
[2021-10-13] MEDS: DEXTROSE 5% IN WATER 1,000 ML IV SCH (13:50)
--- NOTE | 2021-10-13 14:17 | P.PN ---
Subjective Progress Note Date: 10/13/21 Principal diagnosis: Acute pneumoperitoneum secondary to acute sigmoid colon perforation status post colectomy and diverting colostomy postoperative day #12 10/05 2021, the patient is postop day #4. Remains on a mechanical ventilator. He remains sedated with propofol and the patient is currently on 15 mcg/kg per minute. She is adequately sedated for now. She remains on a mechanical ventilator on assist control mode at the rate of 26, tidal volume of 300, FiO2 of 40% with a PEEP of 5. The blood gas from today shows a father respiratory alkalosis and metabolic alkalosis. PH is at 7.54 with a pCO2 of 37 and pO2 of 80. Chest x-ray showing some atelectatic changes and small effusion the lung bases bilaterally. ET tube is in a good location. There is some mild increase in interstitial markings. Note that the patient is a case of Coumadin nightly related pneumonia also. Hemodynamically, the patient is doing better. She has been weaned off on norepinephrine which is currently running at 0.02 microvascular kilogram per minute and vasopressin remains on a physiologic dose. Her renal function continues to improve in the creatinine is down to 2.7. The patient was also having issues with hypocalcemia. She required calcium placement and her serum calcium total currently is up to 6.3. Ionized calcium is pending for now. Her serum albumin was down to 1.6. Her colostomy was functional and she was started on enteral feeding for nutritional support and she is currently on Nepro at the rate of 23 mL an hour. Another concern is her thrombocytopenia as the patient developed consumptive thrombocytopenia. She is currently on anticoagulation with Eliquis. No bleeding. I am concerned about the potential of bleeding this patient I'm recommending discontinuation of the Eliquis for now. We'll continue the combination of Zosyn and Flagyl as broad-spectrum antibiotic coverage. Cultures of been all negative. Bowel sounds are still hypoactive. The patient will need obviously a sedation holiday today and her candidacy for further weaning will be assessed. 10/06 2021, the patient is still on a mechanical ventilator. The patient is postop day #5. This morning, the patient is off sedation. Once off propofol, the patient's blood pressures improved and the patient is also off pressors. Meanwhile, she is still quite sedated. She is not showing adequate neurological recovery or alertness at this point in time and her mental status is being monit ored. She remains on a mechanical ventilator. She had an assist-control at the rate of 26, tidal volume of 300, FiO2 of 40% with a PEEP of 5. The blood gases from today shows a pH of 7.52 with a pCO2 of 41 and pO2 of 66. Chest x-ray shows small bilateral pleural effusions. ET tube is in a good location. There is improved aeration bilaterally. Meanwhile, as mentioned, the patient is off pressors. Platelet counts have improved up to 5072. The white cell count is at 28 with a hemoglobin 11.9.5. Renal function shows a creatinine of 2.6 which is stable. BUN is at 61. Sodium is at 138. The patient remains on examination Zosyn and Flagyl. IV fluids are running at the rate of 20 mL an hour. The patient is off pressors. The patient is on stress dose hydrocortisone regarding her chronic steroid use. In terms of feeding, the patient was started on Nepro which is running at the rate of 23 mL an hour. The patient is producing stool at this point in time. Her cardiac rhythm is still in atrial fibrillation. The rate is controlled. We have stopped anticoagulation due to concern of underlying thrombocytopenia. Her thrombocytopenia was essentially consumptive related to sepsis. Patient was reevaluated today on 10/07/2021, remains in the ICU, intubated and mechanically ventilated, patient is on assist control rate of 16, volume 300 FiO2 40% and PEEP of 5. ABG showed a pO2 of 56, pCO2 33, pH of 7.59. Patient is off sedation now for the last 2 days, and does not seem to be making any neurological improvement, she is hemodynamically stable, she is in atrial fibrillation with a rate of 1:15, she is on Lovenox, the dose was increased to 30 mg subcu twice a day. Patient seems to be hypercapnic, and instead of using propofol, I'm recommending Precedex, and will be titrated accordingly. I'm also recommending a brain CT today and a neurological consultation. Lovenox was increased to twice a day dosing mostly because of her ongoing atrial fibrillation. And she does have renal failure. Ventilator mcdowell, I recommended that we stay on the same vent settings, I did increase the flow to 60 L/m. See count is 26.2 hemoglobin is 9.4. Basic metabolic profile is normal however her BUN is 83 creatinine 2.16, patient is being followed by nephrology. Asked x-ray showed mostly bibasilar airspace disease, patient did test positive for COVID-19 infection however her chest x-ray is not basically typical of COVID-19 pneumonia, and the patient is not requiring significant FiO2 and significant PEEP at this point. Reevaluated today on 10/08/2021, remains in the ICU, intubated and mechanically ventilated. Patient is on assist control rate of 16, volume 300 FiO2 50% and PEEP of 5. ABG showed a pO2 of 77 pCO2 45 pH of 7.43. Patient is only on Precedex for sedation and to keep the patient synchronous with mechanical ventilation without affecting her mental status. She is requiring norepinephrine at 0.1 mcg/kg/m, and she is on antibiotics empirically. Patient is receiving Nepro at 31 mL per hour. Labs showed low potassium of 3.0, being corrected by protocol. Her renal profile is a bit worse with a BUN of 90 creatinine 2.63. LDH is 102 for C-reactive protein is 7.3. WBC count is elevated 30.7 hemoglobin is 8.9 and hematocrit 28.6. Patient is in atrial fibrillation with controlled rate, she is on Eliquis, antibiotics mcdowell she is on Zosyn and Flagyl for her abdominal sepsis. Neurologically, the patient remains unresponsive to any stimuli, she grimaces with deep painful stimuli, otherwise no responses are noted. Neurology has been consulted on this patient. Reevaluated today on 10/09/2021, remains in the ICU, intubated and mechanically ventilated, remains off sedation except Precedex. Patient remains unresponsive to any stimuli. Being followed by neurology, and apparently her family was updated by neurology on her neurological status. Patient is on assist control rate of 16, volume 300 FiO2 50% and PEEP of 5. ABG showed a pO2 of 87 pCO2 40 0 pH of 7.47. Patient is on Precedex which I plan to discontinue, she is on enteral feeding in the form of Nepro, she is at goal. Patient is in atrial fibrillation, but rate seems to be controlled, her rate is 103 today. She is hemodynamically stable. Patient continues to grimace only to deep painful stimuli otherwise no neurological responses, she is in the process of having EEG during my evaluation. Chest x-ray showed mostly COPD with stable bilateral infiltrates and pleural effusion. WBC count today is 28.5 hemoglobin is 9.6. Electrolytes showed slightly elevated sodium of 145 potassium 3.4 BUN is 100 creatinine 2.46. Reevaluated today on 10/10/2021, remains in the ICU, intubated and mechanically ventilated. Patient is presently on assist control rate of 16 tidal volume 300 FiO2 of 50% PEEP of 5. ABG showed a pO2 of 86 pCO2 of 39 pH of 7.47. Patient remains unresponsive to any stimuli, remains off sedation. She is receiving enteral feeding, and it is up to goal in the form of Nepro. Her WBC count is 23.2 hemoglobin is 9.1. Electrolytes are normal except for a sodium of 148, BUN is 105 creatinine 2.27, being followed by nephrology. Chest x-ray is showing mostly atelectasis, and possibly a small left pleural effusion. Underlying pneumonia is not entirely ruled out, possibly COVID-19 related.. Patient remains on her accessory is also on Zosyn. Reevaluated today on 10/11/2021, patient is now postoperative day #10. Remains in the ICU, not much of the changes noted in the last 24 hours, remains unresponsive to any stimuli except a grimacing to deep painful stimuli. Remains on assist control rate of 16 tidal volume 300 FiO2 45% PEEP of 5. Patient is on enteral feeding in the form of Nepro at 35 mL per hour. She is receiving free water flushes to correct her high sodium. Patient is not requiring any drips, she is hemodynamically stable. Remains on antibiotics empirically. Patient is being followed by infectious disease. Patient is also on Eraxis her hydrocortisone dose has been cut down to 50 mg every 8 hours, and I will cut it down today to every 12 hours. Patient is also on Flagyl. Overall the patient is basically about the same, and no significant neurological recovery has been noted in the last 10 days. EEG is suggestive of moderate severe encephalopathy. No epileptiform focus. Reevaluated today on 10/12/21, patient remains in the ICU intubated and mechanically ventilated, remains unresponsive to any stimuli. Patient is now postoperative day #11. Patient seems to be quitE tachypneic, and does not seem to be synchronous at times and the ventilator, as I recommended starting the patient on a low dose propofol. She needs a bit of sedation, although we have been holding the sedation now for over 5 days, and no mental change has been noted no neurological recovery has been noted. She is on assist control rate of 16 tidal volume of 300 FiO2 45% PEEP of 5. ABG showed a pO2 of 104 pCO2 43 pH of 7.47. Her electrolytes are worse, she is having a high sodium of 151, hence I'm changing her main IV fluid to D5W, and she'll remain on free water flushes via orogastric tube. BUN is elevated at 89 and creatinine 1.72. Being followed closely by nephrology. Patient is on D5W and she is on free water flushes. Today I'm restarting her propofol. WBC count is 18.7, patient remains on antibiotics. Blood cultures and urine cultures have been negative chest x-ray continues to show left basilar atelectasis/consolidation. And possibly a small effusion. Reevaluated today on 10/13/21, patient remains in the ICU intubated and mechanically ventilated. She is on assist control rate of 16 tidal volume 300 FiO2 45% PEEP of 5. ABG showed a pO2 of 87 pCO2 32 pH of 7.55. Remains on propofol at 20 mcg/kg/m. Patient is not showing any signs of neurological recovery, remains unresponsive, she was off sedation for almost 5 days, had to be placed on propofol only because of a synchrony with mechanical ventilation, and had to be calm down as she was not synchronous with mechanical ventilation. Patient is on Nepro at 51 mL per hour. She is being considered for tracheostomy tomorrow by Dr. Price. Electrolytes are relatively normal except for low potassium of 3.4. BUN is 72 creatinine 1.36. WBC is 15.8 hemoglobin is 8.4. No ventilator changes were made today. Chest x-ray showed bibasilar infiltrates/atelectasis. I'm suspecting that would truly have infiltrates in the lower lobes. Patient remains on antibiotics. Objective - Vital Signs Vital signs: Vital Signs Temp 98.6 F 10/13/21 12:00 Pulse 97 10/13/21 14:00 Resp 33 H 10/13/21 14:00 BP 108/69 10/13/21 14:00 Pulse Ox 100 10/13/21 14:00 Intake & Output 10/12/21 10/13/21 10/13/21 18:59 06:59 18:59 Intake Total 964.544 2399.609 1272.606 Output Total 2342 1995 900 Balance -1473.324 9.609 372.606 Weight 72.8 kg Intake: IV 246 354 321 0.9 110 230 Dextrose 5% in Water 1, 200 000 ml @ 50 mls/hr IV . Q20H [facility] Rx#:[id number] Piperacillin-Tazobactam 3 100 100 100 .375 gm In Sodium Chloride 0.9% 100 ml @ 25 mls/hr IVPB Q12H [facility] Rx# :[id number] Pressure Bag 36 24 21 Intake, IV Titration 267.676 47.609 84.606 Amount Anidulafungin 100 mg In 100 Sodium Chloride 0.9% 100 ml @ 84 mls/hr IVPB DAILY [facility] Rx#:[id number] Dextrose 5% in Water 1, 140 000 ml @ 50 mls/hr IV . Q20H [facility] Rx#:[id number] propofoL 1,000 mg In 27.676 47.609 84.606 Empty Bag 1 bag @ Titrate IV .Q0M [facility] Rx#: [id number] Tube Feeding 155 403 217 Other 200 1200 650 Output: Urine 1742 1345 650 Stool 600 650 250 Other: Voiding Method Indwelling Catheter Indwelling Catheter Indwelling Catheter ABP, PAP, CO, CI - Last Documented Arterial Blood Pressure 101/58 - Exam Gen: This is an 81-year-old female, intubated and mechanically ventilated. Unresponsive to any stimuli, including painful stimuli. Head: Atraumatic, normocephalic. HEENT: PERRLA, EOMI, nonicteric, no neck masses, no JVD. Endotracheal tube is intact. Orogastric tube is intact. NECK: Supple. No JVD. No lymphadenopathy. No thyromegaly. Cardiac: Irregular irregular rhythm, no S3 gallop. 2/6 systolic murmur throughout the precordium. LUNGS: Symmetrical chest expansion crackles at the bases. Abdomen: Colostomy bag is intact, seems to be functional EXTREMITIES: 1+ bipedal edema, good pulses bilaterally. NEUROLOGICAL: Patient is intubated, not responsive to any stimuli. In spite of holding sedation now for almost 5 days. Psychiatric: Cannot assess. - Labs CBC & Chem 7: 10/13/21 05:00 10/13/21 05:00 Labs: Abnormal Lab Results - Last 24 Hours (Table) 10/12/21 10/13/21 10/13/21 Range/Units 18:07 00:13 00:30 WBC (3.8-10.6) k/uL RBC (3.80-5.40) m/uL Hgb (11.4-16.0) gm/dL Hct (34.0-46.0) % RDW (11.5-15.5) % ABG pH (7.35-7.45) ABG pCO2 (35-45) mmHg ABG HCO3 (21-25) mmol/L ABG Total CO2 (19-24) mmol/L ABG O2 Saturation (94-97) % Sodium (137-145) mmol/L Potassium 3.2 L (3.5-5.1) mmol/L Chloride (98-107) mmol/L BUN (7-17) mg/dL Creatinine (0.52-1.04) mg/dL Glucose (74-99) mg/dL POC Glucose (mg/dL) 179 H 171 H (75-99) mg/dL Calcium (8.4-10.2) mg/dL 10/13/21 10/13/21 10/13/21 Range/Units 05:00 05:00 05:10 WBC 15.8 H (3.8-10.6) k/uL RBC 2.79 L (3.80-5.40) m/uL Hgb 8.4 L (11.4-16.0) gm/dL Hct 26.6 L (34.0-46.0) % RDW 15.6 H (11.5-15.5) % ABG pH (7.35-7.45) ABG pCO2 (35-45) mmHg ABG HCO3 (21-25) mmol/L ABG Total CO2 (19-24) mmol/L ABG O2 Saturation (94-97) % Sodium 147 H (137-145) mmol/L Potassium 3.4 L (3.5-5.1) mmol/L Chloride 114 H (98-107) mmol/L BUN 72 H (7-17) mg/dL Creatinine 1.36 H (0.52-1.04) mg/dL Glucose 175 H (74-99) mg/dL POC Glucose (mg/dL) 184 H (75-99) mg/dL Calcium 7.7 L (8.4-10.2) mg/dL 10/13/21 10/13/21 Range/Units 05:32 12:05 WBC (3.8-10.6) k/uL RBC (3.80-5.40) m/uL Hgb (11.4-16.0) gm/dL Hct (34.0-46.0) % RDW (11.5-15.5) % ABG pH 7.55 H (7.35-7.45) ABG pCO2 32 L (35-45) mmHg ABG HCO3 28 H (21-25) mmol/L ABG Total CO2 29 H (19-24) mmol/L ABG O2 Saturation 97.7 H (94-97) % Sodium (137-145) mmol/L Potassium (3.5-5.1) mmol/L Chloride (98-107) mmol/L BUN (7-17) mg/dL Creatinine (0.52-1.04) mg/dL Glucose (74-99) mg/dL POC Glucose (mg/dL) 146 H (75-99) mg/dL Calcium (8.4-10.2) mg/dL Assessment and Plan Assessment: Impression: Acute hypoxic respiratory failure, multifactorial Acute pneumoperitoneum and abdominal sepsis with perforation of sigmoid. Requiring surgery, colostomy, postoperative day #12 Septic shock due to abdominal sepsis Acute COVID-19 pneumonia is possible. History of kidney transplantation, on immunosuppressive therapy, patient is normally on CellCept prednisone and cyclosporine Chronic kidney disease stage III Chronic atrial fibrillation, on anticoagulation therapy COVID-19 infection possible pneumonia, vaccination status is unknown Osteoporosis History of breast cancer/lobular carcinoma in situ requiring surgery only Thrombocytopenia secondary to sepsis. acute metabolic encephalopathy and change in mental status. CT brain and EEG were noted. Nondiagnostic. Recommendation: Should seriously considered tracheostomy and PEG tube placement of this patient I believe she is scheduled to have that done tomorrow by Dr. Price. Continue ventilatory supporT. Continue antibiotics, and antifungal therapy, patient is on Eraxis, Zosyn, and Flagyl. Continue hydrocortisone at 50 mg twice a day, patient is chronically on steroids. Continue Eliquis. Continue to monitor daily electrolytes and labs Continue antibiotics. Continue patient off immunosuppression Continue vitamin D Continue GI prophylaxis/Protonix Patient is critically ill, critical care time is over 30 minutes. Time with Patient: Greater than 30
--- NOTE | 2021-10-13 14:18 | P.PN ---
Progress Note - Text Patient remains in atrial fibrillation with better controlled ventricular rate on metoprolol 50 mg twice a day Patient may undergo tracheostomy and PEG tube placement tomorrow Is on hold for the same Labs show that the hemoglobin is 8.4 platelet count is 234 potassium is 3.4 BUN is 72 creatinine is 1.36 blood gases show a pH of 7.5 pO2 of 8702 7 sat of 97% On exam patient is intubated on vent respiratory rate is 30 blood pressure is 108/69 heart rate is around 92-100 bpm Assessment and plan burns virus infection With pneumonia Respiratory failure Persistent atrial fibrillation with poorly controlled ventricular rate Agree with holding the [place] was continue metoprolol
--- NOTE | 2021-10-13 15:36 | P.PN ---
Subjective Progress Note Date: 10/13/21 HISTORY OF PRESENT ILLNESS This is an 81-year-old pleasant female patient of Dr. Henao, with known history of hypertension, CK D stage III, paroxysmal atrial fibrillation admitted through the emergency room secondary to abdominal pain and found to have pneumoperitoneum. She has significant discomfort, accompanied by nausea, vomiting, no fever. She presented to emergency room with normal findings, in the CAT scan showing moderate pneumoperitoneum, with small bowel thickening, and mild dilatation saray a of the mesenteric considered for mesenteric ischemia there is a left-sided pelvic cystic mass. Chest x-ray shows atelectasis, She is hypotensive, when seen, lactic acid level is high at 12, she was having difficulty of breathing with tachypnea, hence she was preemptively intubated in the emergency room,. She was placed on assist-control, rate of 26, FiO2 40%, PEEP of 5 at the volume of 300. She was sent ICU for stabilization requiring norepinephrine infusion at 0.5 mcg/kg/m for hypotension and septic shock, she received 3.5 L of normal saline for which she is now undergoing exploratory laparotomy. Consult was made with Dr. Price surgeon, and Dr. Nino, critical care ICU physician incidentally, she was tested confirmed Covid positive, on October 0110/02: Patient is seen today in the intensive care unit, remains intubated and on mechanical ventilation with tidal volume 300, FiO2 40 and PEEP of 5. Patient is currently on propofol, bicarb drip, amiodarone is being started for A. fib. Patient is on antibiotics the form of Zosyn and Flagyl. Repeat chest x-ray reveals basilar atelectasis, correlate to exclude pneumonia, possible effusion. Patient is followed by infectious disease, cardiology, cull grader, nephrology, general surgery. Repeat blood work today reveals WBC 24.6, hemoglobin 12.1, platelet count 123. Sodium 136, potassium 4.5, chloride 109, CO2 11, BUN 38 creatinine 3.04. Calcium 5.9. AST 109. Patient remains in isolation for Covid 19. 10/03: Remains intubated on mechanical ventilation with tidal volume 300, FiO2 40, PEEP of 5. She has had very minimal amount output on ostomy. She has been on high-dose levo fed started on vasopressin as well and heparin drip is off due to elevated PTT. She has no output from her OG. Urine output has improved. 10/04: She remains intubated and on mechanical ventilation with tidal volume 300, FiO2 40 and PEEP of 5. Patient started having output from ostomy last evening, liquid brown approximate 950 ML's. Calcium is being replaced. She is still on low-dose norepinephrine and vasopressin as well as IV fluids. Anticipate she will start oral medications and feedings today. Chest x-ray reveals stable bilateral infiltrate and pleural effusion. 10/05 patient remains intubated, PEEP of 5, O2 40% Dilaudid, pressures are little bit on the lower side, still with norepinephrine titrated with bp, NG feedings at 23 mL an hour, output noted in colostomy, no plans for vent weaning at this time in output is adequate patient is on Cortef 100 mg every 8 hours, was on oral prednisone chronically prior to admission. Ahlquist is still on hold, on IV Zosyn and Flagyl 10/06 and 20 rate in the 110s, blood pressure 125/92, remains to be intubated, assist control 16, with FiO2 40%, PEEP of 5. Slightly labored breathing colostomy, without no blood, NG feedings. On Zosyn and Flagyl multiple specialists following, patient remains in ICU 10/07: Patient remains intubated and on mechanical ventilation with tidal volume 300, FiO2 50 and PEEP of 5. Patient remains unresponsive. She is off vasopressors. She is on tube feedings. Urine output has been 30-40 mL per hour. Cardiology is on consult for atrial fibrillation with RVR and started Lopressor 25 mg twice daily. Chest x-ray reveals correlate for congestive heart failure with basilar effusions and associated atelectasis versus edema, pneumonia not excluded. 10/08: Patient remains in the intensive care unit. She has been off propofol. She is on Precedex and remains intubated on mechanical ventilation with tidal volume 300, FiO2 50, PEEP of 5. Patient's been cleared start eliquis tomorrow by Dr. Price. She is on levo fed which is being weaned down. She has had output from her ostomy. EEG is abnormal with background slowing suggestive of moderate to severe encephalopathy. 10/09: Patient remains in the intensive care unit intubated and on mechanical ventilation with tidal volume 300, FiO2 50, PEEP of 5. Patient is back on norep inephrine this morning with significant increase in blood pressure, now norepinephrine is off. Precedex has been weaned. Patient has not showed any purposeful movements. Patient is afebrile, heart rate 92, blood pressure 122/73, respiratory rate 31, pulse ox 96%. WBC 28.5, hemoglobin 9.6. Potassium 3.4, chloride 108, BUN 100, creatinine 2.46. Blood sugars are between 185 and 202. Alkaline phosphatase 217. C-reactive protein 5.5. Patient remains in isolation due to Covid [address] Kahn has started the patient on Eraxis. 10/10: Patient remains intubated on mechanical ventilation with tidal volume 300, FiO2 50, PEEP of 5. She remains unresponsive to stimuli and off sedation. She is on tube feedings at goal. Repeat blood work reveals WBC 23.2, hemoglobin 9.1. Sodium 148, BUN 105, creatinine 2.27. Patient is followed by cull grader, bacteriologist industrial. Repeat chest x-ray reveals atelectasis and possibly small left pleural effusion. Underlying pneumonia not entirely ruled out, possibly Covid 19 related. She has been afebrile, heart rate 106, respiratory rate 31, blood pressure 97/63. Albumin has been ordered by Dr. Sampson. She is continued on Eraxis, Flagyl, Zosyn. Dr. Bucio updated patient's daughter over the phone. At this time, she does not feel she has enough information to make any decisions such as CODE STATUS. She will discuss with her 2 brothers. 10/11: Patient remains intubated and on mechanical ventilation with tidal volume 300, FiO2 45 and PEEP of 5. She received a dose of Lasix today and has good urine output. Scheduled for albumin infusion today. No significant change. She remains unresponsive and is off sedation. 09/11 patient continues remains intubated on mechanical ventilator with tidal volume 300 FiO2 45% and PEEP of 5. Patient started back on propofol since she was not synchronous with the ventilator. Patient was made no code yesterday by the family. Patient had. No improvement in mental status SEDATION. She does move her feet but does not withdraw from pain. Patient does have gag Reflux and pupils are equal and reactive. Patient continues remains tachycardic in atrial fibrillation and tachypnea 29. Leukocytosis is slightly improved to 18.7 hemoglobin 8.4, sodium is 151, potassium 3.4 chloride 114 BUN 85 creatinine is 1.7 to. Patient is continuous get the water flushes with D5W at 50 mL per hour. Nephrology recommendation appreciated. 10/13 patient remains in the ICU intubated and mechanically ventilated. She is assist control control and rate of 60 tidal volume to 300 FiO2 45% and PEEP of 5. Remains on propofol. Patient has not shown any sign of neurological recovery. Labs are reviewed patient BUN of 72 creatinine 1.26W wheezing 15.8 hemoglobin 8.4 chest x-ray repeated shows Since patient has been intubated since 10/01 patient needs to be tracheostomy and PEG tube for further management.'s x- ray on one specimen it was just with bibasilar density with increased retrocardiac density. Continue D5W for hypernatremia. Continue IV antibiotics with Zosyn and antifungal anidulafungin Review of SYSTEMS ROS unobtainable: due to endotracheal tube PHYSICAL EXAMINATION Gen: This is an 81-year-old female, resting on the ICU bed and appears to be comfortable. ET and orogastric tube in place. HEENT: Head is atraumatic, normocephalic. Pupils equal, round. Sclerae is anicteric. NECK: Supple. No JVD. No lymphadenopathy. No thyromegaly. LUNGS: Clear to auscultation. No wheezes or rhonchi. No intercostal retractions. HEART: Regular rate and rhythm. No murmur. ABDOMEN: Soft. Mild abdominal distention. No tenderness. No output in colostomy bag. Reyes catheter is in place draining meir urine. EXTREMITIES: No pedal edema. No calf tenderness. NEUROLOGICAL: Patient is intubated. Patient is unresponsive to verbal and painful stimuli. No purposeful movement. ASSESSMENT AND PLAN 1. Acute pneumoperitoneum, with peritonitis considered for small bowel perforation, underlying ischemic bowel and abdominal sepsis 2. Acute hypoxic respiratory failure requiring mechanical intubation. General surgery, is status post exploratory laparotomy 10/01/2020. Continue Eraxis, Zosyn and Flagyl. Patient is on stress dose of hydrocortisone 50 mg every 8 hours. Under tracheostomy to 3. Small bowel perforation suspected, with septic shock, explore lap on 10/01/1908/10/2022, IV Zosyn 4. Septic shock, severe lactic acidosis, IV antibiotics, with fluids w pressors 5. History of kidney transplantation, on immunosuppressive agent, CellCept and prednisone and cyclosporine 6. Acute allograft dysfunction secondary to ATN secondary to hypotension and shock CKD, suspect stage III, relative consult appreciated. 7. chronic atrial fibrillation, with prior TIA. Patient is on liquids, Lopressor 25 mg 3 times daily daily, cardiology consult appreciated. 8. Covid 19 infection, unknown infection time and onset of signs and symptoms, vaccination status not Determined, consult Dr. Kahn 9. Metabolic encephalopathy. Patient is followed by neurology. No improvement of her condition off sedation. Patient is status post EEG 3 with no seizure activity. Patient was started on Vimpat by neurology. 10. Breast cancer, with lobular carcinoma in situ, had surgery for these activity unknown, 11. 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 Carmona. 12. Hypocalcemia. Continue to monitor and replace 13. Thrombocytopenia secondary to sepsis. Continue to monitor. 14. DVT prophylaxis GI prophylaxis 15 hypernatremia continue D5W at 50 mL per hour CODE STATUS, full until specified Prognosis guarded. Objective - Vital Signs Vital signs: Vital Signs Temp 98.6 F 10/13/21 12:00 Pulse 97 10/13/21 15:00 Resp 25 H 10/13/21 15:00 BP 103/76 10/13/21 15:00 Pulse Ox 100 10/13/21 14:00 Intake & Output 10/12/21 10/13/21 10/13/21 18:59 06:59 18:59 Intake Total 120.247 2580.609 1556.606 Output Total 2342 1995 975 Balance -1473.324 9.609 581.606 Weight 72.8 kg Intake: IV 246 354 374 0.9 110 230 Dextrose 5% in Water 1, 250 000 ml @ 50 mls/hr IV . Q20H [facility] Rx#:[id number] Piperacillin-Tazobactam 3 100 100 100 .375 gm In Sodium Chloride 0.9% 100 ml @ 25 mls/hr IVPB Q12H [facility] Rx# :[id number] Pressure Bag 36 24 24 Intake, IV Titration 267.676 47.609 84.606 Amount Anidulafungin 100 mg In 100 Sodium Chloride 0.9% 100 ml @ 84 mls/hr IVPB DAILY [facility] Rx#:[id number] Dextrose 5% in Water 1, 140 000 ml @ 50 mls/hr IV . Q20H [facility] Rx#:[id number] propofoL 1,000 mg In 27.676 47.609 84.606 Empty Bag 1 bag @ Titrate IV .Q0M [facility] Rx#: [id number] Tube Feeding 155 403 248 Other 200 1200 850 Output: Urine 1742 1345 725 Stool 600 650 250 Other: Voiding Method Indwelling Catheter Indwelling Catheter Indwelling Catheter ABP, PAP, CO, CI - Last Documented Arterial Blood Pressure 161/80 - Labs CBC & Chem 7: 10/13/21 05:00 10/13/21 15:00 Labs: Abnormal Lab Results - Last 24 Hours (Table) 10/12/21 10/13/21 10/13/21 Range/Units 18:07 00:13 00:30 WBC (3.8-10.6) k/uL RBC (3.80-5.40) m/uL Hgb (11.4-16.0) gm/dL Hct (34.0-46.0) % RDW (11.5-15.5) % ABG pH (7.35-7.45) ABG pCO2 (35-45) mmHg ABG HCO3 (21-25) mmol/L ABG Total CO2 (19-24) mmol/L ABG O2 Saturation (94-97) % Sodium (137-145) mmol/L Potassium 3.2 L (3.5-5.1) mmol/L Chloride (98-107) mmol/L BUN (7-17) mg/dL Creatinine (0.52-1.04) mg/dL Glucose (74-99) mg/dL POC Glucose (mg/dL) 179 H 171 H (75-99) mg/dL Calcium (8.4-10.2) mg/dL 10/13/21 10/13/21 10/13/21 Range/Units 05:00 05:00 05:10 WBC 15.8 H (3.8-10.6) k/uL RBC 2.79 L (3.80-5.40) m/uL Hgb 8.4 L (11.4-16.0) gm/dL Hct 26.6 L (34.0-46.0) % RDW 15.6 H (11.5-15.5) % ABG pH (7.35-7.45) ABG pCO2 (35-45) mmHg ABG HCO3 (21-25) mmol/L ABG Total CO2 (19-24) mmol/L ABG O2 Saturation (94-97) % Sodium 147 H (137-145) mmol/L Potassium 3.4 L (3.5-5.1) mmol/L Chloride 114 H (98-107) mmol/L BUN 72 H (7-17) mg/dL Creatinine 1.36 H (0.52-1.04) mg/dL Glucose 175 H (74-99) mg/dL POC Glucose (mg/dL) 184 H (75-99) mg/dL Calcium 7.7 L (8.4-10.2) mg/dL 10/13/21 10/13/21 10/13/21 Range/Units 05:32 12:05 15:00 WBC (3.8-10.6) k/uL RBC (3.80-5.40) m/uL Hgb (11.4-16.0) gm/dL Hct (34.0-46.0) % RDW (11.5-15.5) % ABG pH 7.55 H (7.35-7.45) ABG pCO2 32 L (35-45) mmHg ABG HCO3 28 H (21-25) mmol/L ABG Total CO2 29 H (19-24) mmol/L ABG O2 Saturation 97.7 H (94-97) % Sodium (137-145) mmol/L Potassium 3.4 L (3.5-5.1) mmol/L Chloride (98-107) mmol/L BUN (7-17) mg/dL Creatinine (0.52-1.04) mg/dL Glucose (74-99) mg/dL POC Glucose (mg/dL) 146 H (75-99) mg/dL Calcium (8.4-10.2) mg/dL
[2021-10-13] MEDS ORDERED: POTASSIUM BICARBONATE/CIT AC 20 MEQ TABLET.EFF NG-TUBE SCH (16:00)
--- NOTE | 2021-10-13 16:38 | P.PN ---
Subjective Progress Note Date: 10/13/21 Principal diagnosis: Secondary peritonitis from perforated diverticulitis and covid 19 infection Patient is an 81-year-old female who presented to the hospital with abdominal pain. This patient noticed to have perforated sigmoid diverticulitis status post laparotomy, sigmoid colectomy and diverting colostomy. Also had positive COVID test. On today's evaluation, that is 10/13/2021, The patient remains to be afebrile, the patient is hemodynamically stable not requiring any pressor support, the patient FiO2 is currently stable at 45 % no significant purulent secretion through the ET and no diarrhea reported by the nursing staff patient had been tolerating her tube feeds, possible plan for trach and PEG in the morning Objective - Vital Signs Vital signs: Vital Signs Temp 98.6 F 10/13/21 12:00 Pulse 97 10/13/21 15:00 Resp 25 H 10/13/21 15:00 BP 103/76 10/13/21 15:00 Pulse Ox 100 10/13/21 14:00 Intake & Output 10/12/21 10/13/21 10/13/21 18:59 06:59 18:59 Intake Total 363.205 1558.609 1556.606 Output Total 2342 1995 975 Balance -1473.324 9.609 581.606 Weight 72.8 kg Intake: IV 246 354 374 0.9 110 230 Dextrose 5% in Water 1, 250 000 ml @ 50 mls/hr IV . Q20H [facility] Rx#:[id number] Piperacillin-Tazobactam 3 100 100 100 .375 gm In Sodium Chloride 0.9% 100 ml @ 25 mls/hr IVPB Q12H [facility] Rx# :[id number] Pressure Bag 36 24 24 Intake, IV Titration 267.676 47.609 84.606 Amount Anidulafungin 100 mg In 100 Sodium Chloride 0.9% 100 ml @ 84 mls/hr IVPB DAILY [facility] Rx#:[id number] Dextrose 5% in Water 1, 140 000 ml @ 50 mls/hr IV . Q20H [facility] Rx#:[id number] propofoL 1,000 mg In 27.676 47.609 84.606 Empty Bag 1 bag @ Titrate IV .Q0M [facility] Rx#: [id number] Tube Feeding 155 403 248 Other 200 1200 850 Output: Urine 1742 1345 725 Stool 600 650 250 Other: Voiding Method Indwelling Catheter Indwelling Catheter Indwelling Catheter ABP, PAP, CO, CI - Last Documented Arterial Blood Pressure 161/80 - Exam General description is an elderly female intubated on the vent. Respiratory system: Unlabored breathing, decreased intensity in breath sounds. No wheeze. Heart S1, S2. Regular rate and rhythm. Abdomen soft, no tenderness. Midline incision remains to be clean akua are intact Extremities no edema feet - Labs CBC & Chem 7: 10/13/21 05:00 10/13/21 15:00 Labs: Abnormal Lab Results - Last 24 Hours (Table) 10/12/21 10/13/21 10/13/21 Range/Units 18:07 00:13 00:30 WBC (3.8-10.6) k/uL RBC (3.80-5.40) m/uL Hgb (11.4-16.0) gm/dL Hct (34.0-46.0) % RDW (11.5-15.5) % ABG pH (7.35-7.45) ABG pCO2 (35-45) mmHg ABG HCO3 (21-25) mmol/L ABG Total CO2 (19-24) mmol/L ABG O2 Saturation (94-97) % Sodium (137-145) mmol/L Potassium 3.2 L (3.5-5.1) mmol/L Chloride (98-107) mmol/L BUN (7-17) mg/dL Creatinine (0.52-1.04) mg/dL Glucose (74-99) mg/dL POC Glucose (mg/dL) 179 H 171 H (75-99) mg/dL Calcium (8.4-10.2) mg/dL 10/13/21 10/13/21 10/13/21 Range/Units 05:00 05:00 05:10 WBC 15.8 H (3.8-10.6) k/uL RBC 2.79 L (3.80-5.40) m/uL Hgb 8.4 L (11.4-16.0) gm/dL Hct 26.6 L (34.0-46.0) % RDW 15.6 H (11.5-15.5) % ABG pH (7.35-7.45) ABG pCO2 (35-45) mmHg ABG HCO3 (21-25) mmol/L ABG Total CO2 (19-24) mmol/L ABG O2 Saturation (94-97) % Sodium 147 H (137-145) mmol/L Potassium 3.4 L (3.5-5.1) mmol/L Chloride 114 H (98-107) mmol/L BUN 72 H (7-17) mg/dL Creatinine 1.36 H (0.52-1.04) mg/dL Glucose 175 H (74-99) mg/dL POC Glucose (mg/dL) 184 H (75-99) mg/dL Calcium 7.7 L (8.4-10.2) mg/dL 10/13/21 10/13/21 10/13/21 Range/Units 05:32 12:05 15:00 WBC (3.8-10.6) k/uL RBC (3.80-5.40) m/uL Hgb (11.4-16.0) gm/dL Hct (34.0-46.0) % RDW (11.5-15.5) % ABG pH 7.55 H (7.35-7.45) ABG pCO2 32 L (35-45) mmHg ABG HCO3 28 H (21-25) mmol/L ABG Total CO2 29 H (19-24) mmol/L ABG O2 Saturation 97.7 H (94-97) % Sodium (137-145) mmol/L Potassium 3.4 L (3.5-5.1) mmol/L Chloride (98-107) mmol/L BUN (7-17) mg/dL Creatinine (0.52-1.04) mg/dL Glucose (74-99) mg/dL POC Glucose (mg/dL) 146 H (75-99) mg/dL Calcium (8.4-10.2) mg/dL Assessment and Plan (1) Peritonitis Current Visit: Yes Status: Acute Code(s): K65.9 - PERITONITIS, UNSPECIFIED SNOMED Code(s): 42768420 Plan: 1. Patient with acute respiratory failure, multifactorial in this patient who has perforated sigmoid diverticulitis status post diverting colostomy. The patient Is currently covered with Zosyn which will be continued 2. Elevated white count more likely related to the steroids plus minus a component of oropharyngeal candidiasis versus abdominal source , The patient white count is trending down with addition of Eraxis and is down to 15.8 today, patient to continue with Eraxis and continue supportive care Time with Patient: Less than 30
[2021-10-13 17:51] LABS: Glucose,Whole Blood 154 mg/dL (75-99)
[2021-10-13 23:52] LABS: Glucose,Whole Blood 140 mg/dL (75-99)
[2021-10-14] MEDS: INSULIN ASPART (NovoLOG) 100 UNIT/ML VIAL SQ SCH ×2 (00:30→06:28)
[2021-10-14] MEDS: PIPERACILLIN-TAZOBACTAM 3.375 GM in SODIUM CHLORIDE 0.9% 100 ML IVPB SCH ×2 (00:31→08:50)
[2021-10-14] MEDS: NOREPINEPHRINE 32 MG in SODIUM CHLORIDE 0.9% 218 ML IV SCH (05:05)
[2021-10-14 05:40] LABS: ABG Base Excess 5.5 mmol/L; ABG HCO3 28 mmol/L (21-25); ABG Oxygen Saturation 98.6 % (94-97); ABG PCO2 31 mmHg (35-45); ABG PH 7.55 (7.35-7.45); ABG PO2 102 mmHg (83-108); ABG TCO2 29 mmol/L (19-24); Allen Test Performed? Yes
[2021-10-14] MEDS: CHLORHEXIDINE GLUCONATE 15 ML CUP MUCOUS MEM SCH (08:58)
[2021-10-14] MEDS: HYDROCORTISONE SUCCINATE 100 MG/2 ML VIAL IV SCH (08:58)
[2021-10-14] MEDS: METOPROLOL TARTRATE 50 MG TAB PO SCH (08:59)
[2021-10-14] MEDS: CALCIUM CARBONATE 500 MG CHEWABLE PO SCH (08:59)
[2021-10-14] MEDS: cycloSPORINE 25 MG CAP PO SCH (08:59)
[2021-10-14] MEDS: PANTOPRAZOLE 40 MG/10 ML VIAL IV SCH (09:00)
[2021-10-14] MEDS: ANIDULAFUNGIN 100 MG in SODIUM CHLORIDE 0.9% 100 ML IVPB SCH (09:55)
[2021-10-14] MEDS: LACOSAMIDE IV 50 MG in SODIUM CHLORIDE 0.9% 50 ML IVPB SCH (10:32)
--- NOTE | 2021-10-14 10:33 | P.PN ---
Subjective Principal diagnosis: Patient is seen for follow-up for acute kidney injury, acute allograft nephropathy. Renal function has improved. Patient has good urine output however she has not been waking up and "status was further discussed with family yesterday to appears stated 1 to continue with medical treatment for now with possible hospice care down the road if no further improvement in mentation. Objective - Vital Signs Vital signs: Vital Signs Temp 98.1 F 10/14/21 08:00 Pulse 95 10/14/21 10:00 Resp 35 H 10/14/21 10:00 BP 121/84 10/14/21 10:00 Pulse Ox 98 10/14/21 02:00 Intake & Output 10/13/21 10/14/21 10/14/21 18:59 06:59 18:59 Intake Total 2369.121 1125 259 Output Total 1400 1460 575 Balance 969.121 -335 -316 Weight 75.3 kg Intake: IV 633 686 259 Dextrose 5% in Water 1, 400 600 150 000 ml @ 50 mls/hr IV . Q20H [facility] Rx#:[id number] Lacosamide IV 50 mg In 50 Sodium Chloride 0.9% 50 ml @ 100 mls/hr IVPB BID [facility] Rx#:[id number] Piperacillin-Tazobactam 3 200 100 .375 gm In Sodium Chloride 0.9% 100 ml @ 25 mls/hr IVPB Q12H [facility] Rx# :[id number] Pressure Bag 33 36 9 Intake, IV Titration 145.121 100 Amount propofoL 1,000 mg In 145.121 100 Empty Bag 1 bag @ Titrate IV .Q0M [facility] Rx#: [id number] Tube Feeding 341 279 Other 1250 60 Output: Urine 1000 1060 575 Stool 400 400 Other: Voiding Method Indwelling Catheter Indwelling Catheter ABP, PAP, CO, CI - Last Documented Arterial Blood Pressure 155/68 - Exam Patient remains on the vent examination of the lower extremities shows edema 1+ bilaterally. Lungs and heart are not examined due to underlying covid infection. Not responsive. No purposeful movements noted. - Labs CBC & Chem 7: 10/13/21 05:00 10/13/21 15:00 Labs: Abnormal Lab Results - Last 24 Hours (Table) 10/13/21 10/13/21 10/13/21 Range/Units 12:05 15:00 17:49 ABG pH (7.35-7.45) ABG pCO2 (35-45) mmHg ABG HCO3 (21-25) mmol/L ABG Total CO2 (19-24) mmol/L ABG O2 Saturation (94-97) % Potassium 3.4 L (3.5-5.1) mmol/L POC Glucose (mg/dL) 146 H 154 H (75-99) mg/dL 10/13/21 10/14/21 Range/Units 23:51 05:24 ABG pH 7.55 H (7.35-7.45) ABG pCO2 31 L (35-45) mmHg ABG HCO3 28 H (21-25) mmol/L ABG Total CO2 29 H (19-24) mmol/L ABG O2 Saturation 98.6 H (94-97) % Potassium (3.5-5.1) mmol/L POC Glucose (mg/dL) 140 H (75-99) mg/dL Microbiology - Last 24 Hours (Table) 10/13/21 20:45 Sputum Culture - Preliminary Sputum Assessment and Plan Assessment: #1 acute allograft dysfunction secondary to hemodynamic ATN. -Based line creatinine 1.0 MG per DL. 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 #3 metabolic acidosis secondary to lactic acidosis improved. #4 hypernatremia secondary to decreased intake, improving #5 pneumoperitoneum status post exploratory laparotomy #7 Covid 19 infection #8 encephalopathy with no improvement in mentation Plan: 1. Continue with D5W 2. Repeat labs in a.m. 3. Continue with IV steroids 4. Replace potassium
--- NOTE | 2021-10-14 11:36 | P.PN ---
Subjective Progress Note Date: 10/14/21 Principal diagnosis: Perforated bowel, sepsis, acute kidney injury. Reevaluated today on 10/10/2021, remains in the ICU, intubated and mechanically ventilated. Patient is presently on assist control rate of 16 tidal volume 300 FiO2 of 50% PEEP of 5. ABG showed a pO2 of 86 pCO2 of 39 pH of 7.47. Patient remains unresponsive to any stimuli, remains off sedation. She is receiving enteral feeding, and it is up to goal in the form of Nepro. Her WBC count is 23.2 hemoglobin is 9.1. Electrolytes are normal except for a sodium of 148, BUN is 105 creatinine 2.27, being followed by nephrology. Chest x-ray is showing mostly atelectasis, and possibly a small left pleural effusion. Underlying pneumonia is not entirely ruled out, possibly COVID-19 related.. Patient remains on her accessory is also on Zosyn. Reevaluated today on 10/11/2021, patient is now postoperative day #10. Remains in the ICU, not much of the changes noted in the last 24 hours, remains unresponsive to any stimuli except a grimacing to deep painful stimuli. Remains on assist control rate of 16 tidal volume 300 FiO2 45% PEEP of 5. Patient is on enteral feeding in the form of Nepro at 35 mL per hour. She is receiving free water flushes to correct her high sodium. Patient is not requiring any drips, she is hemodynamically stable. Remains on antibiotics empirically. Patient is being followed by infectious disease. Patient is also on Eraxis her hydrocortisone dose has been cut down to 50 mg every 8 hours, and I will cut it down today to every 12 hours. Patient is also on Flagyl. Overall the patient is basically about the same, and no significant neurological recovery has been noted in the last 10 days. EEG is suggestive of moderate severe encephalopathy. No epileptiform focus. Reevaluated today on 10/12/21, patient remains in the ICU intubated and mechanically ventilated, remains unresponsive to any stimuli. Patient is now postoperative day #11. Patient seems to be quitE tachypneic, and does not seem to be synchronous at times and the ventilator, as I recommended starting the patient on a low dose propofol. She needs a bit of sedation, although we have been holding the sedation now for over 5 days, and no mental change has been noted no neurological recovery has been noted. She is on assist control rate of 16 tidal volume of 300 FiO2 45% PEEP of 5. ABG showed a pO2 of 104 pCO2 43 pH of 7.47. Her electrolytes are worse, she is having a high sodium of 151, hence I'm changing her main IV fluid to D5W, and she'll remain on free water flushes via orogastric tube. BUN is elevated at 89 and creatinine 1.72. Being followed closely by nephrology. Patient is on D5W and she is on free water flushes. Today I'm restarting her propofol. WBC count is 18.7, patient remains on antibiotics. Blood cultures and urine cultures have been negative chest x-ray continues to show left basilar atelectasis/consolidation. And possibly a small effusion. Reevaluated today on 10/13/21, patient remains in the ICU intubated and mechanically ventilated. She is on assist control rate of 16 tidal volume 300 FiO2 45% PEEP of 5. ABG showed a pO2 of 87 pCO2 32 pH of 7.55. Remains on propofol at 20 mcg/kg/m. Patient is not showing any signs of neurological recovery, remains unresponsive, she was off sedation for almost 5 days, had to be placed on propofol only because of a synchrony with mechanical ventilation, and had to be calm down as she was not synchronous with mechanical ventilation. Patient is on Nepro at 51 mL per hour. She is being considered for tracheostomy tomorrow by Dr. Price. Electrolytes are relatively normal except for low potassium of 3.4. BUN is 72 creatinine 1.36. WBC is 15.8 hemoglobin is 8.4. No ventilator changes were made today. Chest x-ray showed bibasilar infiltrates/atelectasis. I'm suspecting that would truly have infiltrates in the lower lobes. Patient remains on antibiotics. Progress note dated 10/14/2021. This is a 81-year-old female who was admitted back on October 01. She came with a perforated bowel, sepsis, and acute kidney injury. She status post sigmoid colectomy and left nephrectomy. She came to the intensive care unit on October 01, and came back from the operation, on the ventilator. The patient is currently still on the mechanical ventilator. She is on the volume assist control mode, rate is 16, tidal volume is 300, FiO2 45%, PEEP of 5. Blood gases show pO2 102, pCO2 31, and a pH is 7.55. Getting D5W at 50 mL an hour, followed 10 mcg/kg/m, and tube feedings are currently on hold. There is some question as to whether or not the patient will be made comfort care today. The patient is a DO NOT RESUSCITATE patient. The only laboratory data today is the blood gas. There is no chest x-ray today. Blood urine and sputum cultures are all negative thus far. Objective - Vital Signs Vital signs: Vital Signs Temp 98.1 F 10/14/21 08:00 Pulse 88 10/14/21 11:00 Resp 25 H 10/14/21 11:00 BP 121/84 10/14/21 10:00 Pulse Ox 95 10/14/21 11:00 Intake & Output 10/13/21 10/14/21 10/14/21 18:59 06:59 18:59 Intake Total 2369.121 1125 352.684 Output Total 1400 1460 625 Balance 969.121 -335 -272.316 Weight 75.3 kg Intake: IV 633 686 312 Dextrose 5% in Water 1, 400 600 200 000 ml @ 50 mls/hr IV . Q20H [facility] Rx#:[id number] Lacosamide IV 50 mg In 50 Sodium Chloride 0.9% 50 ml @ 100 mls/hr IVPB BID [facility] Rx#:[id number] Piperacillin-Tazobactam 3 200 100 .375 gm In Sodium Chloride 0.9% 100 ml @ 25 mls/hr IVPB Q12H [facility] Rx# :[id number] Pressure Bag 33 36 12 Intake, IV Titration 145.121 100 40.684 Amount propofoL 1,000 mg In 145.121 100 40.684 Empty Bag 1 bag @ Titrate IV .Q0M [facility] Rx#: [id number] Tube Feeding 341 279 Other 1250 60 Output: Urine 1000 1060 625 Stool 400 400 Other: Voiding Method Indwelling Catheter Indwelling Catheter ABP, PAP, CO, CI - Last Documented Arterial Blood Pressure 137/62 - Exam No acute distress, currently sedated, with an orally placed endotracheal tube and NG tube. HEENT examination is grossly unremarkable. Neck supple. Full range of motion. No adenopathy thyromegaly or neck vein distention. Cardiovascular examination reveals regular rhythm rate. S1-S2 normal. No S3 or S4. No discernible murmur noted. Heart rate 88 bpm. Heart sounds are distant. Lungs reveal diffuse coarse rhonchi. No wheezes or crackles. Breath sounds are equal bilaterally. Abdomen soft, without bowel sounds. Colostomy bag noted. Extremities are intact. Bilateral lower extremity edema. No cyanosis or clubbing. Skin is without rash or lesion. Neurologic examination cannot be adequately assessed as the patient's currently sedated. - Labs CBC & Chem 7: 10/13/21 05:00 10/13/21 15:00 Labs: Abnormal Lab Results - Last 24 Hours (Table) 10/13/21 10/13/21 10/13/21 Range/Units 12:05 15:00 17:49 ABG pH (7.35-7.45) ABG pCO2 (35-45) mmHg ABG HCO3 (21-25) mmol/L ABG Total CO2 (19-24) mmol/L ABG O2 Saturation (94-97) % Potassium 3.4 L (3.5-5.1) mmol/L POC Glucose (mg/dL) 146 H 154 H (75-99) mg/dL 10/13/21 10/14/21 Range/Units 23:51 05:24 ABG pH 7.55 H (7.35-7.45) ABG pCO2 31 L (35-45) mmHg ABG HCO3 28 H (21-25) mmol/L ABG Total CO2 29 H (19-24) mmol/L ABG O2 Saturation 98.6 H (94-97) % Potassium (3.5-5.1) mmol/L POC Glucose (mg/dL) 140 H (75-99) mg/dL Microbiology - Last 24 Hours (Table) 10/13/21 20:45 Sputum Culture - Preliminary Sputum Assessment and Plan Assessment: Acute hypoxemic respiratory failure, status post intubation with mechanical ventilation on October 01. Acute pneumoperitoneum, with abdominal sepsis, status post sigmoid perforation, requiring sigmoid colectomy, left oophorectomy, expiratory laparotomy, postop day #13. Abdominal sepsis with septic shock. Acute coronavirus pneumonia. History of kidney transplantation. History of chronic kidney disease, stage III. Chronic atrial fibrillation. Osteoporosis. History of breast cancer. Septic encephalopathy. Plan: Plan dated 10/14/2021. The patient is currently postop day #13. The patient currently remains on the ventilator. The patient's on propofol at 10 mcg/kg/m. The patient is a DO NOT RESUSCITATE patient. There is some conversation with the patient may be made comfort care only today by family members. That decision has not yet been fully made. Blood gases and labs are reviewed. Additional recommendations and suggestions are forthcoming. Overall prognosis remains very poor. I will continue to follow make recommendations where appropriate. Time with Patient: Greater than 30
[2021-10-14 12:03] VITALS: BMI 31.4
--- NOTE | 2021-10-14 12:04 | P.PN ---
Subjective Progress Note Date: 10/14/21 HISTORY OF PRESENT ILLNESS This is an 81-year-old pleasant female patient of Dr. Henao, with known history of hypertension, CK D stage III, paroxysmal atrial fibrillation admitted through the emergency room secondary to abdominal pain and found to have pneumoperitoneum. She has significant discomfort, accompanied by nausea, vomiting, no fever. She presented to emergency room with normal findings, in the CAT scan showing moderate pneumoperitoneum, with small bowel thickening, and mild dilatation saray a of the mesenteric considered for mesenteric ischemia there is a left-sided pelvic cystic mass. Chest x-ray shows atelectasis, She is hypotensive, when seen, lactic acid level is high at 12, she was having difficulty of breathing with tachypnea, hence she was preemptively intubated in the emergency room,. She was placed on assist-control, rate of 26, FiO2 40%, PEEP of 5 at the volume of 300. She was sent ICU for stabilization requiring norepinephrine infusion at 0.5 mcg/kg/m for hypotension and septic shock, she received 3.5 L of normal saline for which she is now undergoing exploratory laparotomy. Consult was made with Dr. Price surgeon, and Dr. Nino, critical care ICU physician incidentally, she was tested confirmed Covid positive, on October 0110/02: Patient is seen today in the intensive care unit, remains intubated and on mechanical ventilation with tidal volume 300, FiO2 40 and PEEP of 5. Patient is currently on propofol, bicarb drip, amiodarone is being started for A. fib. Patient is on antibiotics the form of Zosyn and Flagyl. Repeat chest x-ray reveals basilar atelectasis, correlate to exclude pneumonia, possible effusion. Patient is followed by infectious disease, cardiology, nuclear medicine technician, nephrology, general surgery. Repeat blood work today reveals WBC 24.6, hemoglobin 12.1, platelet count 123. Sodium 136, potassium 4.5, chloride 109, CO2 11, BUN 38 creatinine 3.04. Calcium 5.9. AST 109. Patient remains in isolation for Covid 19. 10/03: Remains intubated on mechanical ventilation with tidal volume 300, FiO2 40, PEEP of 5. She has had very minimal amount output on ostomy. She has been on high-dose levo fed started on vasopressin as well and heparin drip is off due to elevated PTT. She has no output from her OG. Urine output has improved. 10/04: She remains intubated and on mechanical ventilation with tidal volume 300, FiO2 40 and PEEP of 5. Patient started having output from ostomy last evening, liquid brown approximate 950 ML's. Calcium is being replaced. She is still on low-dose norepinephrine and vasopressin as well as IV fluids. Anticipate she will start oral medications and feedings today. Chest x-ray reveals stable bilateral infiltrate and pleural effusion. 10/05 patient remains intubated, PEEP of 5, O2 40% Dilaudid, pressures are little bit on the lower side, still with norepinephrine titrated with bp, NG feedings at 23 mL an hour, output noted in colostomy, no plans for vent weaning at this time in output is adequate patient is on Cortef 100 mg every 8 hours, was on oral prednisone chronically prior to admission. Ahlquist is still on hold, on IV Zosyn and Flagyl 10/06 and 20 rate in the 110s, blood pressure 125/92, remains to be intubated, assist control 16, with FiO2 40%, PEEP of 5. Slightly labored breathing colostomy, without no blood, NG feedings. On Zosyn and Flagyl multiple specialists following, patient remains in ICU 10/07: Patient remains intubated and on mechanical ventilation with tidal volume 300, FiO2 50 and PEEP of 5. Patient remains unresponsive. She is off vasopressors. She is on tube feedings. Urine output has been 30-40 mL per hour. Cardiology is on consult for atrial fibrillation with RVR and started Lopressor 25 mg twice daily. Chest x-ray reveals correlate for congestive heart failure with basilar effusions and associated atelectasis versus edema, pneumonia not excluded. 10/08: Patient remains in the intensive care unit. She has been off propofol. She is on Precedex and remains intubated on mechanical ventilation with tidal volume 300, FiO2 50, PEEP of 5. Patient's been cleared start eliquis tomorrow by Dr. Price. She is on levo fed which is being weaned down. She has had output from her ostomy. EEG is abnormal with background slowing suggestive of moderate to severe encephalopathy. 10/09: Patient remains in the intensive care unit intubated and on mechanical ventilation with tidal volume 300, FiO2 50, PEEP of 5. Patient is back on norep inephrine this morning with significant increase in blood pressure, now norepinephrine is off. Precedex has been weaned. Patient has not showed any purposeful movements. Patient is afebrile, heart rate 92, blood pressure 122/73, respiratory rate 31, pulse ox 96%. WBC 28.5, hemoglobin 9.6. Potassium 3.4, chloride 108, BUN 100, creatinine 2.46. Blood sugars are between 185 and 202. Alkaline phosphatase 217. C-reactive protein 5.5. Patient remains in isolation due to Covid [address] Kahn has started the patient on Eraxis. 10/10: Patient remains intubated on mechanical ventilation with tidal volume 300, FiO2 50, PEEP of 5. She remains unresponsive to stimuli and off sedation. She is on tube feedings at goal. Repeat blood work reveals WBC 23.2, hemoglobin 9.1. Sodium 148, BUN 105, creatinine 2.27. Patient is followed by nuclear medicine technician, software maintenance engineer. Repeat chest x-ray reveals atelectasis and possibly small left pleural effusion. Underlying pneumonia not entirely ruled out, possibly Covid 19 related. She has been afebrile, heart rate 106, respiratory rate 31, blood pressure 97/63. Albumin has been ordered by Dr. Sampson. She is continued on Eraxis, Flagyl, Zosyn. Dr. Bucio updated patient's daughter over the phone. At this time, she does not feel she has enough information to make any decisions such as CODE STATUS. She will discuss with her 2 brothers. 10/11: Patient remains intubated and on mechanical ventilation with tidal volume 300, FiO2 45 and PEEP of 5. She received a dose of Lasix today and has good urine output. Scheduled for albumin infusion today. No significant change. She remains unresponsive and is off sedation. 09/11 patient continues remains intubated on mechanical ventilator with tidal volume 300 FiO2 45% and PEEP of 5. Patient started back on propofol since she was not synchronous with the ventilator. Patient was made no code yesterday by the family. Patient had. No improvement in mental status SEDATION. She does move her feet but does not withdraw from pain. Patient does have gag Reflux and pupils are equal and reactive. Patient continues remains tachycardic in atrial fibrillation and tachypnea 29. Leukocytosis is slightly improved to 18.7 hemoglobin 8.4, sodium is 151, potassium 3.4 chloride 114 BUN 85 creatinine is 1.7 to. Patient is continuous get the water flushes with D5W at 50 mL per hour. Nephrology recommendation appreciated. 10/13 patient remains in the ICU intubated and mechanically ventilated. She is assist control control and rate of 60 tidal volume to 300 FiO2 45% and PEEP of 5. Remains on propofol. Patient has not shown any sign of neurological recovery. Labs are reviewed patient BUN of 72 creatinine 1.26W wheezing 15.8 hemoglobin 8.4 chest x-ray repeated shows Since patient has been intubated since 10/01 patient needs to be tracheostomy and PEG tube for further management.'s x- ray on one specimen it was just with bibasilar density with increased retrocardiac density. Continue D5W for hypernatremia. Continue IV antibiotics with Zosyn and antifungal anidulafungin Spoke to family for more than 30 minutes answering question to both the son and the daughter. Daughter was upset why I called the son since she is the one who is the primary person to be spoken to. She is was updated on mother's condition, current labs, x-rays, potassium supplementation, multiple options, antibiotics, increasing concerns, benefits and risks on treatment proceeding with tracheostomy versus switching to hospice. Family has multiple questions which has been answered to the best of my expertise. They are seeking one week of treatment if there is no improvement in mental status within the week would be comfortable to switch to comfort care at that point. They would like to continue medical treatment at this. 10/14: Patient remains intubated and on mechanical ventilation with tidal volume 500, FiO2 45, PEEP of 5, volume assist control mode. Patient is afebrile, heart rate 88, blood pressure 137/62, pulse ox 95%. Family apparently wants to wait 1 week before making a decision for comfort care. Patient is off vasopressors. She is continued on Eraxis, Zosyn. No change in condition. Patient is off sedation and is unresponsive. Feedings are at goal. Dr. Henao will contact daughter and provide update. Review of SYSTEMS ROS unobtainable: due to endotracheal tube PHYSICAL EXAMINATION Gen: This is an 81-year-old female, resting on the ICU bed and appears to be comfortable. ET and orogastric tube in place. HEENT: Head is atraumatic, normocephalic. Pupils equal, round. Sclerae is anicteric. NECK: Supple. No JVD. No lymphadenopathy. No thyromegaly. LUNGS: Clear to auscultation. No wheezes or rhonchi. No intercostal retractions. HEART: Regular rate and rhythm. No murmur. ABDOMEN: Soft. Mild abdominal distention. No tenderness. No output in colos nimo bag. Reyes catheter is in place draining meir urine. EXTREMITIES: No pedal edema. No calf tenderness. NEUROLOGICAL: Patient is intubated. Patient is unresponsive to verbal and painful stimuli. No purposeful movement. ASSESSMENT AND PLAN 1. Acute pneumoperitoneum, with peritonitis perforated sigmoid colon, sigmoid colitis, underlying ischemic bowel and abdominal sepsis 2. Acute hypoxic respiratory failure requiring mechanical intubation. General surgery, is status post exploratory laparotomy 10/01/2020. Continue Eraxis, Zosyn and Flagyl. Patient is on stress dose of hydrocortisone 50 mg every 8 hours. Under tracheostomy to 3. Small bowel perforation suspected, with septic shock, explore lap on 10/01/1908/10/2022, IV Zosyn 4. Septic shock, severe lactic acidosis, IV antibiotics, with fluids w pressors 5. History of kidney transplantation, on immunosuppressive agent, CellCept and prednisone and cyclosporine 6. Acute allograft dysfunction secondary to ATN secondary to hypotension and shock CKD, suspect stage III, relative consult appreciated. 7. chronic atrial fibrillation, with prior TIA. Patient is on liquids, Lopressor 25 mg 3 times daily daily, cardiology consult appreciated. 8. Covid 19 infection, unknown infection time and onset of signs and symptoms, vaccination status not Determined, consult Dr. Kahn 9. Metabolic encephalopathy. Patient is followed by neurology. No improvement of her condition off sedation. Patient is status post EEG 3 with no seizure activity. Patient was started on Vimpat by neurology. 10. Breast cancer, with lobular carcinoma in situ, had surgery for these activity unknown, 11. 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 Carmona. 12. Hypocalcemia. Continue to monitor and replace 13. Thrombocytopenia secondary to sepsis. Continue to monitor. 14. DVT prophylaxis GI prophylaxis 15 hypernatremia continue D5W at 50 mL per hour CODE STATUS, full until specified Prognosis guarded. Impression and plan of care have been directed as dictated by the signing physician. Cierra Rodas nurse practitioner acting as scribe for signing physic mariann. Objective - Vital Signs Vital signs: Vital Signs Temp 98.1 F 10/14/21 08:00 Pulse 95 10/14/21 10:00 Resp 35 H 10/14/21 10:00 BP 121/84 10/14/21 10:00 Pulse Ox 98 10/14/21 02:00 Intake & Output 10/13/21 10/14/21 10/14/21 18:59 06:59 18:59 Intake Total 2369.121 1125 299.684 Output Total 1400 1460 575 Balance 969.121 -335 -275.316 Weight 75.3 kg Intake: IV 633 686 259 Dextrose 5% in Water 1, 400 600 150 000 ml @ 50 mls/hr IV . Q20H [facility] Rx#:[id number] Lacosamide IV 50 mg In 50 Sodium Chloride 0.9% 50 ml @ 100 mls/hr IVPB BID [facility] Rx#:[id number] Piperacillin-Tazobactam 3 200 100 .375 gm In Sodium Chloride 0.9% 100 ml @ 25 mls/hr IVPB Q12H [facility] Rx# :[id number] Pressure Bag 33 36 9 Intake, IV Titration 145.121 100 40.684 Amount propofoL 1,000 mg In 145.121 100 40.684 Empty Bag 1 bag @ Titrate IV .Q0M [facility] Rx#: [id number] Tube Feeding 341 279 Other 1250 60 Output: Urine 1000 1060 575 Stool 400 400 Other: Voiding Method Indwelling Catheter Indwelling Catheter ABP, PAP, CO, CI - Last Documented Arterial Blood Pressure 155/68 - Labs CBC & Chem 7: 10/13/21 05:00 10/13/21 15:00 Labs: Abnormal Lab Results - Last 24 Hours (Table) 10/13/21 10/13/21 10/13/21 Range/Units 12:05 15:00 17:49 ABG pH (7.35-7.45) ABG pCO2 (35-45) mmHg ABG HCO3 (21-25) mmol/L ABG Total CO2 (19-24) mmol/L ABG O2 Saturation (94-97) % Potassium 3.4 L (3.5-5.1) mmol/L POC Glucose (mg/dL) 146 H 154 H (75-99) mg/dL 10/13/21 10/14/21 Range/Units 23:51 05:24 ABG pH 7.55 H (7.35-7.45) ABG pCO2 31 L (35-45) mmHg ABG HCO3 28 H (21-25) mmol/L ABG Total CO2 29 H (19-24) mmol/L ABG O2 Saturation 98.6 H (94-97) % Potassium (3.5-5.1) mmol/L POC Glucose (mg/dL) 140 H (75-99) mg/dL Microbiology - Last 24 Hours (Table) 10/13/21 20:45 Sputum Culture - Preliminary Sputum
[2021-10-14] MEDS ORDERED: MORPHINE SULFATE 2 MG/ML SYRINGE IV PRN (13:45)
[2021-10-14] MEDS ORDERED: MORPHINE SULFATE 2 MG/ML SYRINGE IVP ONE (13:45)
[2021-10-14 14:16] VITALS: TEMP 98.3
[2021-10-14] MEDS ORDERED: MORPHINE SULFATE (100 MG/2 ML) 100 MG in SODIUM CHLORIDE 0.9% 100 ML IV SCH (15:00)
--- NOTE | 2021-10-14 15:52 | P.PN ---
Subjective Progress Note Date: 10/14/21 CHIEF COMPLAINT: Abdominal pain HISTORY OF PRESENT ILLNESS: Patient is postop day #13 exploratory laparotomy, sigmoid colectomy with colostomy and right oophorectomy for perforated sigmoid colon. Patient remains in the ICU and intubated. Patient remains unresponsive. No significant change. Patient is tolerating her tube feeds. Ostomy is functioning. There has been discussion about possible comfort care. Awaiting family's final decision. Tracheostomy and PEG tube rescheduled for tomorrow depending on family's wishes. Afebrile. Tachycardic WBC is 15.8 PHYSICAL EXAM: VITAL SIGNS: Reviewed. GENERAL: Well-developed in no acute distress. HEENT: No sclera icterus. Extraocular movements grossly intact. Moist buccal mucosa. Head is atraumatic, normocephalic. ABDOMEN: Soft. Nondistended. Dressing clean dry and intact. Stool present in ostomy NEUROLOGIC: Intubated unresponsive ASSESSMENT: 1. Perforated sigmoid colon status post exploratory laparotomy, sigmoid colectomy with colostomy and right oophorectomy 2. Acute hypoxic respiratory failure currently intubated and on mechanical ventilation 3. Septic shock due to perforated sigmoid colon 4. History of A. fib and TIA 5. COVID-19 positive, incidental finding 6. History of kidney transplant. Nephrology following 7. Acute kidney injury on chronic kidney disease 8. Thrombocytopenia 9. Metabolic Encephalopathy PLAN: -Patient scheduled for tracheostomy and PEG tube placement tomorrow 10/15/[address] garcia -Hold tube feedings after midnight -Continue ICU management -Continue supportive care -Continue antibiotics Physician Enlisted Aircrew/Aerial Observer/Gunner note has been reviewed by physician. Signing provider agrees with the documented findings, assessment, and plan of care. Objective - Vital Signs Vital signs: Vital Signs Temp 98.3 F 10/14/21 12:00 Pulse 123 H 10/14/21 15:00 Resp 30 H 10/14/21 15:00 BP 141/95 10/14/21 15:00 Pulse Ox 86 L 10/14/21 15:00 Intake & Output 10/13/21 10/14/21 10/14/21 18:59 06:59 18:59 Intake Total 2369.121 1125 354.418 Output Total 1400 1460 725 Balance 969.121 -335 -370.582 Weight 75.3 kg 75.3 kg Intake: IV 633 686 312 Dextrose 5% in Water 1, 400 600 200 000 ml @ 50 mls/hr IV . Q20H [facility] Rx#:[id number] Lacosamide IV 50 mg In 50 Sodium Chloride 0.9% 50 ml @ 100 mls/hr IVPB BID COUNT INCLUDES THE [facility] Rx#:[id number] Piperacillin-Tazobactam 3 200 100 .375 gm In Sodium Chloride 0.9% 100 ml @ 25 mls/hr IVPB Q12H [facility] Rx# :[id number] Pressure Bag 33 36 12 Intake, IV Titration 145.121 100 42.418 Amount Morphine Sulfate (100 mg/ 1.734 2 ml) 100 mg In Sodium Chloride 0.9% 100 ml @ 1 MG/HR 1.02 mls/hr IV . Q24H COUNT INCLUDES THE [facility] Rx#:[id number] propofoL 1,000 mg In 145.121 100 40.684 Empty Bag 1 bag @ Titrate IV .Q0M [facility] Rx#: [id number] Tube Feeding 341 279 Other 1250 60 Output: Urine 1000 1060 725 Stool 400 400 Other: Voiding Method Indwelling Catheter Indwelling Catheter ABP, PAP, CO, CI - Last Documented Arterial Blood Pressure 138/65 - Labs CBC & Chem 7: 10/13/21 05:00 10/13/21 15:00 Labs: Abnormal Lab Results - Last 24 Hours (Table) 10/13/21 10/13/21 10/14/21 Range/Units 17:49 23:51 05:24 ABG pH 7.55 H (7.35-7.45) ABG pCO2 31 L (35-45) mmHg ABG HCO3 28 H (21-25) mmol/L ABG Total CO2 29 H (19-24) mmol/L ABG O2 Saturation 98.6 H (94-97) % POC Glucose (mg/dL) 154 H 140 H (75-99) mg/dL Microbiology - Last 24 Hours (Table) 10/13/21 20:45 Sputum Culture - Preliminary Sputum
[2021-10-14 20:02] VITALS: BP 75/50; PULSE 93; RESP 19
--- NOTE | 2021-10-15 07:38 | P.DS ---
Providers Date of admission: 10/01/21 03:24 Expected date of discharge: 10/14/21 Attending physician: Manny Henao Consults: 10/01/21 03:24 Consult Physician Routine Consulting Provider: Eladia Nino Consult Reason/Comments: icu Do you want consulting provider notified?: Yes Consult Physician Routine Consulting Provider: Abhilash Price Consult Reason/Comments: [place] Do you want consulting provider notified?: Yes 10/01/21 03:27 Consult Physician Routine Consulting Provider: Flor Oneill Consult Reason/Comments: aFib Do you want consulting provider notified?: Yes 10/01/21 08:05 Consult Physician Routine Consulting Provider: Yue Carmona Consult Reason/Comments: History of kidney transplant x 2 Do you want consulting provider notified?: Yes 10/01/21 12:19 Consult Physician Routine Consulting Provider: Trina Kahn Consult Reason/Comments: peritonitis, covid infection Do you want consulting provider notified?: Yes 10/07/21 12:08 Consult Physician Routine Consulting Provider: Thee Shultz Consult Reason/Comments: unresponsive Do you want consulting provider notified?: Yes Primary care physician: [facility] Course: HISTORY OF PRESENT ILLNESS This is an 81-year-old pleasant female patient of Dr. Henao, with known history of hypertension, CK D stage III, paroxysmal atrial fibrillation admitted through the emergency room secondary to abdominal pain and found to have pneumoperitoneum. She has significant discomfort, accompanied by nausea, vomiting, no fever. She presented to emergency room with normal findings, in the CAT scan showing moderate pneumoperitoneum, with small bowel thickening, and mild dilatation edema of the mesenteric considered for mesenteric ischemia there is a left-sided pelvic cystic mass. Chest x-ray shows atelectasis, She is hypotensive, when seen, lactic acid level is high at 12, she was having difficulty of breathing with tachypnea, hence she was preemptively intubated in the emergency room,. She was placed on assist-control, rate of 26, FiO2 40%, PEEP of 5 at the volume of 300. She was sent ICU for stabilization requiring norepinephrine infusion at 0.5 mcg/kg/m for hypotension and septic shock, she received 3.5 L of normal saline for which she is now undergoing exploratory laparotomy. Consult was made with Dr. Price surgeon, and Dr. Nino, critical care ICU physician incidentally, she was tested confirmed Covid positive, on October 0110/02: Patient is seen today in the intensive care unit, remains intubated and on mechanical ventilation with tidal volume 300, FiO2 40 and PEEP of 5. Patient is currently on propofol, bicarb drip, amiodarone is being started for A. fib. Patient is on antibiotics the form of Zosyn and Flagyl. Repeat chest x-ray reveals basilar atelectasis, correlate to exclude pneumonia, possible effusion. Patient is followed by infectious disease, cardiology, internet programmer, nephrology, general surgery. Repeat blood work today reveals WBC 24.6, hemoglobin 12.1, platelet count 123. Sodium 136, potassium 4.5, chloride 109, CO2 11, BUN 38 creatinine 3.04. Calcium 5.9. AST 109. Patient remains in isolation for Covid 19. 10/03: Remains intubated on mechanical ventilation with tidal volume 300, FiO2 40, PEEP of 5. She has had very minimal amount output on ostomy. She has been on high-dose levo fed started on vasopressin as well and heparin drip is off due to elevated PTT. She has no output from her OG. Urine output has improved. 10/04: She remains intubated and on mechanical ventilation with tidal volume 300, FiO2 40 and PEEP of 5. Patient started having output from ostomy last evening, liquid brown approximate 950 ML's. Calcium is being replaced. She is still on low-dose norepinephrine and vasopressin as well as IV fluids. Anticipate she will start oral medications and feedings today. Chest x-ray reveals stable bilateral infiltrate and pleural effusion. 10/05 patient remains intubated, PEEP of 5, O2 40% Dilaudid, pressures are little bit on the lower side, still with norepinephrine titrated with bp, NG feedings at 23 mL an hour, output noted in colostomy, no plans for vent weaning at this time in output is adequate patient is on Cortef 100 mg every 8 hours, was on oral prednisone chronically prior to admission. Ahlquist is still on hold, on IV Zosyn and Flagyl 10/06 and rate in the 110s, blood pressure 125/92, remains to be intubated, assist control 16, with FiO2 40%, PEEP of 5. Slightly labored breathing colostomy, without no blood, NG feedings. On Zosyn and Flagyl multiple specialists following, patient remains in ICU 10/07: Patient remains intubated and on mechanical ventilation with tidal volume 300, FiO2 50 and PEEP of 5. Patient remains unresponsive. She is off vasopressors. She is on tube feedings. Urine output has been 30-40 mL per hour. Cardiology is on consult for atrial fibrillation with RVR and started Lopressor 25 mg twice daily. Chest x-ray reveals correlate for congestive heart failure with basilar effusions and associated atelectasis versus edema, pneumonia not excluded. 10/08: Patient remains in the intensive care unit. She has been off propofol. She is on Precedex and remains intubated on mechanical ventilation with tidal volume 300, FiO2 50, PEEP of 5. Patient's been cleared start eliquis tomorrow by Dr. Price. She is on levo fed which is being weaned down. She has had output from her ostomy. EEG is abnormal with background slowing suggestive of moderate to severe encephalopathy. 10/09: Patient remains in the intensive care unit intubated and on mechanical ventilation with tidal volume 300, FiO2 50, PEEP of 5. Patient is back on norepinephrine this morning with significant increase in blood pressure, now norepinephrine is off. Precedex has been weaned. Patient has not showed any purposeful movements. Patient is afebrile, heart rate 92, blood pressure 122/73, respiratory rate 31, pulse ox 96%. WBC 28.5, hemoglobin 9.6. Potassium 3.4, chloride 108, BUN 100, creatinine 2.46. Blood sugars are between 185 and 202. Alkaline phosphatase 217. C-reactive protein 5.5. Patient remains in isolation due to Covid [address] Kahn has started the patient on Eraxis. 10/10: Patient remains intubated on mechanical ventilation with tidal volume 300, FiO2 50, PEEP of 5. She remains unresponsive to stimuli and off sedation. She is on tube feedings at goal. Repeat blood work reveals WBC 23.2, hemoglobin 9.1. Sodium 148, BUN 105, creatinine 2.27. Patient is followed by internet programmer, industrial custodian. Repeat chest x-ray reveals atelectasis and possibly small left pleural effusion. Underlying pneumonia not entirely ruled out, possibly Covid 19 related. She has been afebrile, heart rate 106, respiratory rate 31, blood pressure 97/63. Albumin has been ordered by Dr. Sampson. She is continued on Eraxis, Flagyl, Zosyn. Dr. Bucio updated patient's daughter over the phone. At this time, she does not feel she has enough information to make any decisions such as CODE STATUS. She will discuss with her 2 brothers. 10/11: Patient remains intubated and on mechanical ventilation with tidal volume 300, FiO2 45 and PEEP of 5. She received a dose of Lasix today and has good urine output. Scheduled for albumin infusion today. No significant change. She remains unresponsive and is off sedation. 09/11 patient continues remains intubated on mechanical ventilator with tidal volume 300 FiO2 45% and PEEP of 5. Patient started back on propofol since she was not synchronous with the ventilator. Patient was made no code yesterday by the family. Patient had. No improvement in mental status SEDATION. She does move her feet but does not withdraw from pain. Patient does have gag Reflux and pupils are equal and reactive. Patient continues remains tachycardic in atrial fibrillation and tachypnea 29. Leukocytosis is slightly improved to 18.7 hemoglobin 8.4, sodium is 151, potassium 3.4 chloride 114 BUN 85 creatinine is 1.7 to. Patient is continuous get the water flushes with D5W at 50 mL per hour. Nephrology recommendation appreciated. 10/13 patient remains in the ICU intubated and mechanically ventilated. She is assist control control and rate of 60 tidal volume to 300 FiO2 45% and PEEP of 5. Remains on propofol. Patient has not shown any sign of neurological recovery. Labs are reviewed patient BUN of 72 creatinine 1.26W wheezing 15.8 hemoglobin 8.4 chest x-ray repeated shows Since patient has been intubated since 10/01 patient needs to be tracheostomy and PEG tube for further management.'s x- ray on one specimen it was just with bibasilar density with increased retrocardiac density. Continue D5W for hypernatremia. Continue IV antibiotics with Zosyn and antifungal anidulafungin Spoke to family for more than 30 minutes answering question to both the son and the daughter. Daughter was upset why I called the son since she is the one who is the primary person to be spoken to. She is was updated on mother's condition, current labs, x-rays, potassium supplementation, multiple options, antibiotics, increasing concerns, benefits and risks on treatment proceeding with tracheostomy versus switching to hospice. Family has multiple questions which has been answered to the best of my expertise. They are seeking one week of treatment if there is no improvement in mental status within the week would be comfortable to switch to comfort care at that point. They would like to continue medical treatment at this. 10/14: Patient remains intubated and on mechanical ventilation with tidal volume 500, FiO2 45, PEEP of 5, volume assist control mode. Patient is afebrile, heart rate 88, blood pressure 137/62, pulse ox 95%. Family apparently wants to wait 1 week before making a decision for comfort care. Patient is off vasopressors. She is continued on Eraxis, Zosyn. No change in condition. Patient is off sedation and is unresponsive. Feedings are at goal. Dr. Henao will contact daughter and provide update. Family decided to make patient comfort care yesterday and she on 10/14. Please see nursing documentation for detail DISCHARGE DIAGNOSES 1. Acute pneumoperitoneum, with peritonitis perforated sigmoid colon, sigmoid colitis, underlying ischemic bowel and abdominal sepsis 2. Acute hypoxic respiratory failure requiring mechanical intubation. 3. Small bowel perforation, with septic shock, explore lap on 10/01/1908/10/2022 4. Septic shock, severe lactic acidosis 5. History of kidney transplantation, on immunosuppressive agent 6. Acute allograft dysfunction secondary to ATN secondary to hypotension and shock CKD, suspect stage III 7. chronic atrial fibrillation, with prior TIA. 8. Covid19 infection 9. Metabolic encephalopathy. 10. Breast cancer, with lobular carcinoma in situ. 11. 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 Carmona. 12. Hypocalcemia 13. Thrombocytopenia secondary to sepsis 14. Hypernatremia Impression and plan of care have been directed as dictated by the signing physician. Cierra Rodas nurse practitioner acting as scribe for signing physician. Patient Condition at Discharge: Critical Plan - Discharge Summary New Discharge Prescriptions: No Action Atenolol 50 mg PO BID cloNIDine HCL [Clonidine HCl] 0.1 mg PO BID predniSONE 5 mg PO DAILY lisinopriL 60 mg PO HS Furosemide [Lasix] 20 mg PO DAILY Pantoprazole [Protonix] 40 mg PO DAILY Apixaban [Eliquis] 2.5 mg PO BID Acetaminophen-Codeine 300-30mg [Tylenol w/codeine #3] 1 tab PO Q4H PRN PRN Reason: Pain Rosuvastatin [Crestor] 10 mg PO DAILY Discharge Medication List Atenolol 50 mg PO BID 12/13/14 [History] cloNIDine HCL [Clonidine HCl] 0.1 mg PO BID 12/13/14 [History] predniSONE 5 mg PO DAILY 05/14/16 [History] Furosemide [Lasix] 20 mg PO DAILY 10/22/18 [History] lisinopriL 60 mg PO HS 10/22/18 [History] Pantoprazole [Protonix] 40 mg PO DAILY 04/20/20 [History] Acetaminophen-Codeine 300-30mg [Tylenol w/codeine #3] 1 tab PO Q4H PRN 10/01/21 [History] Apixaban [Eliquis] 2.5 mg PO BID 10/01/21 [History] Rosuvastatin [Crestor] 10 mg PO DAILY 10/01/21 [History] Follow up Appointment(s)/Referral(s): Manny Henao MD [Primary Care Provider] - 1-2 days Discharge Disposition: - Preliminary Cause of Preliminary Cause of : perforated sigmoid colon, sigmoid colitis, ischemic bowel and abd sepsis
== END 2021-10-14 23:27 | disposition expired | DRG 853 ==
LOC: EC 23:07 → 2SICU 10-01 03:24
PROVIDERS: ADMIT Internal Medicine Geriatric Medicine; ATTEND Internal Medicine Geriatric Medicine
PROC: 0DBM0ZZ Excision of Descending Colon, Open Approach (ICD-10-PCS; 2021-10-01)
PROC: 0D1N0Z4 Bypass Sigmoid Colon to Cutaneous, Open Approach (ICD-10-PCS; 2021-10-01)
PROC: 0UT00ZZ Resection of Right Ovary, Open Approach (ICD-10-PCS; 2021-10-01)
PROC: 02HV33Z Insertion of Infusion Device into Superior Vena Cava, Percutaneous Approach (ICD-10-PCS; 2021-10-01)
PROC: 0BH17EZ Insertion of Endotracheal Airway into Trachea, Via Natural or Artificial Opening (ICD-10-PCS; 2021-10-01)
PROC: 5A1955Z Respiratory Ventilation, Greater than 96 Consecutive Hours (ICD-10-PCS; 2021-10-01)
PROC: 0DBN0ZZ Excision of Sigmoid Colon, Open Approach (ICD-10-PCS; principal; 2021-10-01 12:05)
PROC: 3E043XZ Introduction of Vasopressor into Central Vein, Percutaneous Approach (ICD-10-PCS; 2021-10-03)
DX: A41.9 Sepsis, unspecified organism (principal); R65.21 Severe sepsis with septic shock; G93.41 Metabolic encephalopathy; J12.82 Pneumonia due to coronavirus disease 2019; J96.01 Acute respiratory failure with hypoxia; K65.1 Peritoneal abscess; N17.0 Acute kidney failure with tubular necrosis; U07.1 COVID-19; I48.21 Permanent atrial fibrillation; E87.0 Hyperosmolality and hypernatremia; E87.1 Hypo-osmolality and hyponatremia; E87.4 Mixed disorder of acid-base balance; J90 Pleural effusion, not elsewhere classified; J98.11 Atelectasis; K55.9 Vascular disorder of intestine, unspecified; K57.20 Diverticulitis of large intestine with perforation and abscess without bleeding; Z94.0 Kidney transplant status; Z66 Do not resuscitate; Z51.5 Encounter for palliative care; I13.10 Hypertensive heart and chronic kidney disease without heart failure, with stage 1 through stage 4 chronic kidney disease, or unspecified chronic kidney disease; D05.00 Lobular carcinoma in situ of unspecified breast; D69.59 Other secondary thrombocytopenia; E78.5 Hyperlipidemia, unspecified; E83.51 Hypocalcemia; E86.1 Hypovolemia; E87.6 Hypokalemia; E87.70 Fluid overload, unspecified; G93.89 Other specified disorders of brain; K21.9 Gastro-esophageal reflux disease without esophagitis; M81.0 Age-related osteoporosis without current pathological fracture; N18.30 Chronic kidney disease, stage 3 unspecified; Z80.0 Family history of malignant neoplasm of digestive organs; Z79.899 Other long term (current) drug therapy; Z90.721 Acquired absence of ovaries, unilateral; Z90.5 Acquired absence of kidney; Z90.49 Acquired absence of other specified parts of digestive tract; Z86.73 Personal history of transient ischemic attack (TIA), and cerebral infarction without residual deficits; Z85.3 Personal history of malignant neoplasm of breast; Z79.52 Long term (current) use of systemic steroids; Z79.01 Long term (current) use of anticoagulants; Z78.9 Other specified health status
CPT/HCPCS: 31500; 36415; 36556; 36600; 70450; 71045; 74018; 74176; 80048; 80053; 80158; 81001; 82150; 82306; 82310; 82330; 82550; 82728; 82805; 83036; 83605; 83615; 83690; 83735; 83970; 84100; 84132; 84145; 85025; 85027; 85610; 85730; 86140; 86850; 86900; 86901; 87040; 87070; 87086; 87205; 87635; 88307; 93306; 94002; 94003; 95713; 95822; 96361; 96365; 96375; 99291